=== PATIENT | male | born 1940 | race Caucasian/White ===

== ENCOUNTER 2016-12-31 16:13 | Inpatient (IN) | payer OTHER ==
[~2016-12-31] VITALS: Ht 170.2 cm; Wt 88.9 kg
--- NOTE | 2016-12-31 16:42 | EMERGENCY ROOM VISIT NOTE ---
History Report prepared by Shai: Vince Kahn Under the Supervision of: Dr. Flo Avila M.D. First contact with patient: 16:30 Chief Complaint: SHORTNESS OF BREATH Stated Complaint: SOB, DSYPNEA, COUGH, FATIGUE History of Present Illness The patient is a 76 year old male who presents to the Emergency Room with complaints of shortness of breath that began 6 months ago, but worsened today. He has a past medical history of CHF. His pulse ox was 84% on room air. He is not normally on oxygen and does not have any oxygen at home. He notes that his shortness of breath worsens with exertion. He denies any pain anywhere at this time. He is having some mild bilateral leg edema. His family member states that last week he was taken off of Hydrochlorothiazide and switched onto Metoprolol and Lasix. He also has been following up with Dr. Briggs of Cardiology with future appointments to receive a cardiac stress test. Source of History: patient Onset: 6 months ago Position: other (Respiratory System) Symptom Intensity: 84% on room air Quality: other (Shortness of breath) Timing: worsening Modifying Factors (Worsening): exertion Associated Symptoms: No headache, No neck pain, No chest pain, No abdominal pain, No back pain Note: He is experiencing bilateral lower leg edema. He denies any other abnormal symptoms. Review of Systems All systems have been listed, reviewed, and are negative other than those previously mentioned. Please see Additional Medical History Sheet. Past Medical & Surgical Medical Problems: (1) Carotid stenosis, asymptomatic (2) CHF (congestive heart failure) (3) DM type 2 (diabetes mellitus, type 2) (4) History of myocardial infarction (5) HTN (hypertension) (6) LBBB (left bundle branch block) (7) Peripheral vascular disease Surgical Problems: (1) H/O colonoscopy with polypectomy Family History Omitted secondary to the patient's age. Social History Smoking Status: Former Smoker Smokeless Tobacco Use: No Drug Use: none Occupation Status: retired Current/Historical Medications Scheduled Amlodipine (Norvasc), 2.5 MG PO DAILY Aspirin (Aspirin Ec), 81 MG PO HS Furosemide (Lasix), 20 MG PO DAILY Metoprolol Succinate (Toprol Xl), 25 MG PO DAILY Omeprazole (Prilosec), 20 MG PO QAM Sildenafil Citrate (Viagra), 25 MG PO PRN Sucralfate (Carafate), 1 GM PO ACHS Scheduled PRN Ipratropium-Albuterol (Combivent Respimat), 1 PUFFS INH QID PRN for Wheezing Allergies Coded Allergies: Lisinopril (Unverified Adverse Reaction, Intermediate, HIGH POTASSIUM LEVELS, 12/31/16) Atorvastatin (Verified Adverse Reaction, Unknown, muscle weakness in legs , 12/31/16) Physical Exam Vital Signs Date Time Temp Pulse Resp B/P (MAP) Pulse Ox O2 Delivery O2 Flow Rate FiO2 12/31/16 18:11 86 24 130/69 94 Mask 4.0 12/31/16 16:50 98 Mask 4.0 12/31/16 16:47 78 12/31/16 16:44 98 Mask 4.0 12/31/16 16:44 98 Mask 4.0 12/31/16 16:24 36.3 84 20 146/79 81 Room Air Physical Exam GENERAL: Patient awake, alert, oriented x 3. Patient follows commands. Patient does not appear toxic. Patient is adequately hydrated and well- nourished. SKIN: No erythema, pallor, cyanosis or rash HEENT: Normal head, pupils equal, reactive to light and accommodation. Oral cavity and posterior pharynx appear normal. Neck: Without adenopathy, no neck vein distention. LUNGS: Wheezing to all chapman. Decreased air movement in all chapman. HEART: No murmurs. No gallops. No rubs ABDOMEN: Soft and nontender. EXTREMITIES: No signs of trauma. 1+ pitting edema bilaterally. No calf or thigh tenderness. NEUROLOGIC: Cranial nerves II-XII within normal limits. No gross motor sensory function deficits. Medical Decision & Procedures ER Provider Diagnostic Interpretation: Radiology results as stated below per my review and radiologist interpretation: CHEST 2 VIEWS ROUTINE HISTORY: Short of breath. Congestive heart failure. COMPARISON: None. FINDINGS: Cardiac silhouette is borderline enlarged. Diffuse interstitial and vascular thickening consistent with pulmonary edema. Small bilateral pleural effusions. Bibasilar densities likely represent atelectasis from the small pleural effusions. IMPRESSION: Mild to moderate pulmonary edema and small bilateral pleural effusions. Electronically signed by: Akash Morocho M.D. 12/31/2016 5:16 PM Dictated Date/Time: 12/31/2016 5:14 PM Laboratory Results 12/31/16 16:37 Red Blood Count 5.34, Mean Corpuscular Volume 97.8, Mean Corpuscular Hemoglobin 32.8, Mean Corpuscular Hemoglobin Concent 33.5, Mean Platelet Volume 11.7, Neutrophils (%) (Auto) 59.5, Lymphocytes (%) (Auto) 30.3, Monocytes (%) (Auto) 8.0, Eosinophils (%) (Auto) 1.6, Basophils (%) (Auto) 0.4, Neutrophils # (Auto) 3.05, Lymphocytes # (Auto) 1.55, Monocytes # (Auto) 0.41, Eosinophils # (Auto) 0.08, Basophils # (Auto) 0.02 12/31/16 16:37 Test 12/31/16 16:37 White Blood Count 5.12 K/uL (4.8-10.8) Red Blood Count 5.34 M/uL (4.7-6.1) Hemoglobin 17.5 g/dL (14.0-18.0) Hematocrit 52.2 % (42-52) Mean Corpuscular Volume 97.8 fL (80-100) Mean Corpuscular Hemoglobin 32.8 pg (25-34) Mean Corpuscular Hemoglobin Concent 33.5 g/dl (32-36) Platelet Count 149 K/uL (130-400) Mean Platelet Volume 11.7 fL (7.4-10.4) Neutrophils (%) (Auto) 59.5 % Lymphocytes (%) (Auto) 30.3 % Monocytes (%) (Auto) 8.0 % Eosinophils (%) (Auto) 1.6 % Basophils (%) (Auto) 0.4 % Neutrophils # (Auto) 3.05 K/uL (1.4-6.5) Lymphocytes # (Auto) 1.55 K/uL (1.2-3.4) Monocytes # (Auto) 0.41 K/uL (0.11-0.59) Eosinophils # (Auto) 0.08 K/uL (0-0.5) Basophils # (Auto) 0.02 K/uL (0-0.2) RDW Standard Deviation 51.2 fL (36.4-46.3) RDW Coefficient of Variation 14.3 % (11.5-14.5) Immature Granulocyte % (Auto) 0.2 % Immature Granulocyte # (Auto) 0.01 K/uL (0.00-0.02) Prothrombin Time 11.7 SECONDS (9.0-12.0) Prothromb Time International Ratio 1.1 (0.9-1.1) Activated Partial Thromboplast Time 28.4 SECONDS (21.0-31.0) Partial Thromboplastin Ratio 1.1 Anion Gap 4.0 mmol/L (3-11) Est Creatinine Clear Calc Drug Dose 66.4 ml/min Estimated GFR () 78.0 Estimated GFR (Non- 67.3 BUN/Creatinine Ratio 16.9 (10-20) Calcium Level 8.5 mg/dl (8.5-10.1) Total Bilirubin 0.6 mg/dl (0.2-1) Aspartate Amino Transf (AST/SGOT) 17 U/L (15-37) Alanine Aminotransferase (ALT/SGPT) 40 U/L (12-78) Alkaline Phosphatase 116 U/L (45-117) Pro-B-Type Natriuretic Peptide 4060 pg/ml (0-900) Total Protein 6.7 gm/dl (6.4-8.2) Albumin 3.3 gm/dl (3.4-5.0) Globulin 3.4 gm/dl (2.5-4.0) Albumin/Globulin Ratio 1.0 (0.9-2) Laboratory results as stated above per my review. Medications Administered Medications (Trade) Dose Ordered Sig/Shakira Route Start Time Stop Time Status Last Admin Dose Admin Furosemide (Lasix Inj) 40 mg NOW STAT IV 12/31/16 17:50 12/31/16 17:51 DC 12/31/16 18:12 40 MG ECG Indication: SOB/dyspnea Rate (beats per minute): 76 Rhythm: sinus rhythm Findings: LBBB, PAC, no acute ischemic change ED Course 1630: Past medical records reviewed. The patient was evaluated in room C2. A complete history and physical examination was performed. 1750: Ordered Lasix Inj 40 mg IV 1805: Upon reevaluation, the patient is resting. I discussed today's findings with him. He verbalized agreement of the treatment plan. I spoke with Dr. Link of the [facility] to evaluate the patient for further management. Medical Decision I considered multiple diagnoses including: COPD, pneumonia, bronchitis, and congestive heart failure. Multiple labs, EKG and imaging were obtained. Please see above. Chest x-ray reveals congestive heart failure bordering on pulmonary edema with pleural effusions. BNP is greater than 4000. The patient was given IV Lasix which did result in him urinating here in the ED. I do not believe the patient is ready to return home. I discussed care with the patient, family members and the hospitalist. Medication Reconcilliation Current Medication List: was personally reviewed by me Blood Pressure Screening Patient's blood pressure: Normal blood pressure Blood pressure disposition: Did not require urgent referral Consults Time Called: 1800 Consulting Physician: Dr. Nikolay Azevedo Hospitalist Returned Call: [phone] Discussed the patient's case with her. The patient will be evaluated for further management. Impression Primary Impression: CHF (congestive heart failure) Additional Impression: Elevated troponin Scribe Attestation The scribe's documentation has been prepared under my direction and personally reviewed by me in its entirety. I confirm that the note above accurately reflects all work, treatment, procedures, and medical decision making performed by me. Departure Information Dispostion Being Evaluated By Hospitalist Referrals Neftali Jamil M.D.(HUGH) (PCP) Patient Instructions My [facility] Problem Qualifiers
--- NOTE | 2016-12-31 17:17 | DIAGNOSTIC IMAGING REPORT ---
CHEST 2 VIEWS ROUTINE HISTORY: Short of breath. Congestive heart failure. COMPARISON: None. FINDINGS: Cardiac silhouette is borderline enlarged. Diffuse interstitial and vascular thickening consistent with pulmonary edema. Small bilateral pleural effusions. Bibasilar densities likely represent atelectasis from the small pleural effusions. IMPRESSION: Mild to moderate pulmonary edema and small bilateral pleural effusions. Electronically signed by: Akash Morocho M.D. 12/31/2016 5:16 PM Dictated Date/Time: 12/31/2016 5:14 PM
[2016-12-31 17:27] LABS: BASO % 0.4 %; BASO ABS # 0.02 K/uL (0-0.2); COMPLETE YES; EOS % 1.6 %; HEMATOCRIT 52.2 % (42-52); IG% 0.2 %; LYMPH % 30.3 %; LYMPH ABS # 1.55 K/uL (1.2-3.4); MEAN CELL VOLUME 97.8 fL (80-100); MEAN CORPUSCULAR HEMOGLOBIN 32.8 pg (25-34); MEAN CORPUSCULAR HGB CONC 33.5 g/dl (32-36); MEAN PLATELET VOLUME 11.7 fL (7.4-10.4); NEUT % 59.5 %; PLATELET COUNT 149 K/uL (130-400); RED BLOOD COUNT 5.34 M/uL (4.7-6.1); WHITE BLOOD COUNT 5.12 K/uL (4.8-10.8)
[2016-12-31 17:29] LABS: INR 1.1 (0.9-1.1); PARTIAL THROMBOPLASTIN RATIO 1.1; PROTHROMBIN TIME (PATIENT) 11.7 SECONDS (9.0-12.0)
[2016-12-31 17:34] LABS: BUN/CREATININE RATIO 16.9 (10-20); CALCIUM 8.5 mg/dl (8.5-10.1); CREATININE 1.08 mg/dl (0.60-1.40); POTASSIUM 3.6 mmol/L (3.5-5.1)
[2016-12-31] MEDS ORDERED: SUCR5SUS PO (17:43)
[2016-12-31] MEDS ORDERED: AMLO2.5T PO (17:43)
[2016-12-31] MEDS ORDERED: ASPI81TA28 PO (17:43)
[2016-12-31] MEDS ORDERED: PRLSR20 PO (17:43)
[2016-12-31] MEDS ORDERED: FURO-85 PO (17:43)
[2016-12-31] MEDS ORDERED: SILD1TAB11 PO (17:43)
[2016-12-31] MEDS ORDERED: VNTHFA/IN INH (17:43)
[2016-12-31] MEDS ORDERED: METO25TA3 PO (17:43)
[2016-12-31] MEDS ORDERED: FUROSEMIDE 40 MG/4 ML VIAL IV STA (17:50)
[2016-12-31 19:26] VITALS: O2SAT 95; Ht 170.2 cm; Wt 88.9 kg
[2016-12-31] MEDS ORDERED: ONDANSETRON INJ 2 MG/ML 2 ML VIAL IV PRN (20:00)
[2016-12-31] MEDS ORDERED: POLYETHYLENE (MIRALAX) 17 GM PACK PO PRN (20:00)
[2016-12-31] MEDS ORDERED: MoRPHine SULFATE 2 MG/ML CARP IV PRN (20:00)
[2016-12-31] MEDS ORDERED: NITROGLYCERIN 0.4 MG SL PER TAB CHARGE SL PRN (20:00)
[2016-12-31] MEDS ORDERED: ACETAMINOPHEN 325 MG TAB PO PRN (20:00)
[2016-12-31] MEDS ORDERED: IPRA1AER2 INH (20:06)
[2016-12-31] MEDS ORDERED: ASPIRIN 81 MG CHEW PO STA (20:08)
[2016-12-31] MEDS ORDERED: IPRATROPIUM BROMIDE/ALBUTEROL respimat INH INH PRN (20:15)
[2016-12-31 20:25] VITALS: BP 137/66; PULSE 90; TEMP 36.7; O2SAT 92
[2016-12-31] MEDS ORDERED: POTASSIUM CHLORIDE 20 MEQ TABCR PO ONE (20:30)
[2016-12-31] MEDS: SUCRALFATE 1 GM/10 ML UDC PO SCH (20:42)
--- NOTE | 2016-12-31 21:26 | History and Physical ---
History & Physical Date & Time of Service: Dec 31, 2016 at 20:09 Chief Complaint: CHF Primary Care Physician: Neftali Jamil M.D.(KAILEE) History of Present Illness Source: patient, family (niece at bedside) This is a 76 y/o male with history of silent CT in , LBBB, chronic systolic and diastolic CHF, dyslipidemia, DM type 2, and other problems listed below who presents to the ED with SOB. Onset of SOB was 6 months ago, then worsened over past 1 month and further worsened today. Previously was dyspneic on exertion only, but today was dyspneic at rest. Per his great niece, his O2 sat at home was in low 80's on home pulse oximeter. He does not use home O2. Dr. Briggs's office was called and patient was taken to ER, where he was also hypoxic to 81% on RA which improved to mid 90's on 4-5 liters via mask. Currently SOB is resolved. He reports associated nonproductive cough x 6 months. He reports burning pain across his chest, non-radiating, during episodes of SOB. No CP currently. He reports bilateral LE edema over past few days. Reports weight gain of 10 lb over past 2 months. He was having reflux and epigastric pain which improved with addition of omeprazole and Carafate. He denies fever, chills, diaphoresis, rhinorrhea, sore throat, orthopnea, increased abdominal girth, abdominal pain, N/V/D, dysuria, frequency, urgency. Pt was recently seen by Dr. Briggs on 12/25/2016 for acute systolic CHF, at which time HCTZ was discontinued, and patient was started on metoprolol succinate 25 mg daily and furosemide 20 mg daily. Pt is scheduled for outpatient stress test January 08. Patient stopped taking atorvastatin 3 weeks ago due to bilateral foot pain and muscle weakness. Last echo 12/04/2016- LBBB conduction pattern with ventricular ectopics was noted during imaging. There is an extensive area of hypokinesis to akinesis involving the entire inferior wall, entire posterior wall, and inferior apex. Calculated LV ejection Fraction = 45% (biplane method of discs). The left ventricular cavity size is moderately enlarged. Thinning of the inferior posterior wall. The left ventricular diastolic function is moderately abnormal ( grade II).The left atrium is mildly enlarged (3541ml/m^2). Past Medical/Surgical History Medical Problems: (1) Carotid stenosis, asymptomatic Status: Chronic (2) CHF (congestive heart failure) Permanent Comment: echo 12/04/2016- EF 45%, grade II diastolic dysfunction Status: Chronic (3) DM type 2 (diabetes mellitus, type 2) Status: Chronic (4) History of myocardial infarction Permanent Comment: silent CT in Status: Chronic (5) HTN (hypertension) Status: Chronic (6) LBBB (left bundle branch block) Status: Chronic (7) Peripheral vascular disease Status: Chronic Surgical Problems: (1) H/O colonoscopy with polypectomy Status: Chronic Family History FH: CAD (coronary artery disease) FATHER ( of CT early ) Social History Smoking Status: Former Smoker Smokeless Tobacco Use: No Alcohol Use: none Occupational Status: retired Multi-Drug Resistant Organisms History of MDRO: No Allergies Coded Allergies: Lisinopril (Unverified Adverse Reaction, Intermediate, HIGH POTASSIUM LEVELS, 12/31/16) Atorvastatin (Verified Adverse Reaction, Unknown, muscle weakness in legs , 12/31/16) Home Medications Scheduled Amlodipine (Norvasc), 2.5 MG PO DAILY Aspirin (Aspirin Ec), 81 MG PO HS Furosemide (Lasix), 20 MG PO DAILY Metoprolol Succinate (Toprol Xl), 25 MG PO DAILY Omeprazole (Prilosec), 20 MG PO QAM Sildenafil Citrate (Viagra), 25 MG PO PRN Sucralfate (Carafate), 1 GM PO ACHS Scheduled PRN Ipratropium-Albuterol (Combivent Respimat), 1 PUFFS INH QID PRN for Wheezing Review of Systems Ten systems reviewed and negative except as noted in HPI. Physical Exam Vital Signs Date Time Temp Pulse Resp B/P (MAP) Pulse Ox O2 Delivery O2 Flow Rate FiO2 12/31/16 19:26 95 Mask 5.0 12/31/16 19:08 74 18 124/74 95 Mask 4.0 12/31/16 18:11 86 24 130/69 94 Mask 4.0 12/31/16 16:50 98 Mask 4.0 12/31/16 16:47 78 12/31/16 16:44 98 Mask 4.0 12/31/16 16:44 98 Mask 4.0 12/31/16 16:24 36.3 84 20 146/79 81 Room Air General Appearance: WD/WN, no apparent distress, + pertinent finding (pleasant alert 76 year old male, sitting in bedside chair, no distress, family at bedside ) Head: normocephalic, atraumatic Eyes: normal inspection, sclerae normal ENT: hearing grossly normal, + pertinent finding (mask in place) Neck: supple, trachea midline Respiratory/Chest: normal breath sounds, no respiratory distress, no accessory muscle use, + pertinent finding (crackles bilateral bases) Cardiovascular: regular rate, rhythm, no murmur Abdomen/GI: normal bowel sounds, non tender, soft Extremities/Musculoskelatal: no calf tenderness, + pertinent finding (2+ pitting pretibial edema bilaterally ) Neurologic/Psych: alert, normal mood/affect, oriented x 3 Skin: normal color, warm/dry Diagnostics Laboratory Results Results Past 24 Hours Test 12/31/16 16:37 Range/Units White Blood Count 5.12 4.8-10.8 K/uL Red Blood Count 5.34 4.7-6.1 M/uL Hemoglobin 17.5 14.0-18.0 g/dL Hematocrit 52.2 42-52 % Mean Corpuscular Volume 97.8 80-100 fL Mean Corpuscular Hemoglobin 32.8 25-34 pg Mean Corpuscular Hemoglobin Concent 33.5 32-36 g/dl Platelet Count 149 130-400 K/uL Mean Platelet Volume 11.7 7.4-10.4 fL Neutrophils (%) (Auto) 59.5 % Lymphocytes (%) (Auto) 30.3 % Monocytes (%) (Auto) 8.0 % Eosinophils (%) (Auto) 1.6 % Basophils (%) (Auto) 0.4 % Neutrophils # (Auto) 3.05 1.4-6.5 K/uL Lymphocytes # (Auto) 1.55 1.2-3.4 K/uL Monocytes # (Auto) 0.41 0.11-0.59 K/uL Eosinophils # (Auto) 0.08 0-0.5 K/uL Basophils # (Auto) 0.02 0-0.2 K/uL RDW Standard Deviation 51.2 36.4-46.3 fL RDW Coefficient of Variation 14.3 11.5-14.5 % Immature Granulocyte % (Auto) 0.2 % Immature Granulocyte # (Auto) 0.01 0.00-0.02 K/uL Prothrombin Time 11.7 9.0-12.0 SECONDS Prothromb Time International Ratio 1.1 0.9-1.1 Activated Partial Thromboplast Time 28.4 21.0-31.0 SECONDS Partial Thromboplastin Ratio 1.1 Sodium Level 139 136-145 mmol/L Potassium Level 3.6 3.5-5.1 mmol/L Chloride Level 102 98-107 mmol/L Carbon Dioxide Level 33 21-32 mmol/L Anion Gap 4.0 3-11 mmol/L Blood Urea Nitrogen 18 7-18 mg/dl Creatinine 1.08 0.60-1.40 mg/dl Est Creatinine Clear Calc Drug Dose 66.4 ml/min Estimated GFR () 78.0 Estimated GFR (Non- 67.3 BUN/Creatinine Ratio 16.9 10-20 Random Glucose 115 70-99 mg/dl Calcium Level 8.5 8.5-10.1 mg/dl Total Bilirubin 0.6 0.2-1 mg/dl Aspartate Amino Transf (AST/SGOT) 17 15-37 U/L Alanine Aminotransferase (ALT/SGPT) 40 12-78 U/L Alkaline Phosphatase 116 45-117 U/L Troponin I 0.049 0-0.045 ng/ml Pro-B-Type Natriuretic Peptide 4060 0-900 pg/ml Total Protein 6.7 6.4-8.2 gm/dl Albumin 3.3 3.4-5.0 gm/dl Globulin 3.4 2.5-4.0 gm/dl Albumin/Globulin Ratio 1.0 0.9-2 Diagnostic Radiology CHEST 2 VIEWS ROUTINE HISTORY: Short of breath. Congestive heart failure. COMPARISON: None. FINDINGS: Cardiac silhouette is borderline enlarged. Diffuse interstitial and vascular thickening consistent with pulmonary edema. Small bilateral pleural effusions. Bibasilar densities likely represent atelectasis from the small pleural effusions. IMPRESSION: Mild to moderate pulmonary edema and small bilateral pleural effusions. EKG Sinus rhythm with premature atrial complexes, 76 bpm, left bundle branch block ( chronic), as confirmed by cardiology, also interpreted by me. Impression Assessment and Plan ACUTE SYSTOLIC CHF, EF 45%, with ACUTE HYPOXIA Was hypoxic to 81% on RA in ER ->improved to mid 90's on 4-5 liters via mask CXR shows pulmonary edema with small bilateral pleural effusions Pro-BNP elevated to approx 4K Troponin mildly elevated to 0.049 ->trend serial cardiac enzymes Received IV Lasix 40 mg in ER, diuresed approx 1 liter in response Continue IV diuresis with Lasix 40 mg BID Continue beta jeffry; ABBEY inhibitor intolerance noted (adverse reaction of hyperkalemia with lisinopril) Sodium restriction Monitor daily standing weight, intake/ output Continue supplemental O2 per protocol Consult cardiology- Dr. Briggs is aware HISTORY OF CT Pt reports silent CT in Rule out ACS as cause of acute CHF Initial troponin mildly elevated at 0.049; EKG shows chronic LBBB Currently chest pain free Trend serial cardiac enzymes Nitro PRN chest pain Aspirin 324 mg given; continue aspirin 81 mg daily and beta jeffry; statin intolerance noted Scheduled for outpatient stress test January 08 HYPERTENSION Continue amlodipine and metoprolol succinate DM TYPE 2 Diet controlled, recent A1c 6.7 on 11/28/2016 Random glucose 115 in ER Monitor BSG AC HS DYSLIPIDEMIA Atorvastatin stopped by patient due to adverse reaction- bilateral foot pain/ muscle weakness GERD Continue PPI DVT PROPHYLAXIS Lovenox SQ CODE STATUS Full code per my discussion with patient and family DISPOSITION Admission telemetry Follows with Dr. Jamil for primary care OF NOTE: Patient's great niece Alisson ([phone]) requests to be updated tomorrow. Patient seen in collaboration with Dr. Link. Please see her addendum. ADDENDUM: I have seen and examined the patient and agree with the assessment and plan as above. Pt states that his chest pain is only with severe SOB with exertion. He has had a 1L output since Lasix 40 IV given in ER and already reports feeling it is easier to breathe. Redose in am and cardiology consult placed to continue outpatient workup. DO Nikolay Level of Care Telemetry Advanced Directives Existing Living Will: No Existing Power of Museum Exhibit Technician: No Resuscitation Status FULL RESUSCITATION VTE Prophylaxis VTE Risk Assessment Done? Y/N: Yes Risk Level: Moderate Given or contraindicated: Enoxaparin (Lovenox)SQ
[2016-12-31 23:12] LABS: CKMB/CK RATIO 3.7 (0-3.0)
[2016-12-31 23:46] VITALS: BP 111/57; PULSE 78; TEMP 36.3; O2SAT 90
[2017-01-01] VITALS (8 sets, daily range): BP systolic 102–116; BP diastolic 62–67; PULSE 55–75; TEMP 36.4–36.8; O2SAT 90–98
[2017-01-01 04:52] LABS: HEMATOCRIT 45.4 % (42-52); MEAN CELL VOLUME 97.6 fL (80-100); MEAN CORPUSCULAR HEMOGLOBIN 32.3 pg (25-34); PLATELET COUNT 131 K/uL (130-400); RED BLOOD COUNT 4.65 M/uL (4.7-6.1)
[2017-01-01 05:16] LABS: BUN/CREATININE RATIO 18.4 (10-20); CALCIUM 8.2 mg/dl (8.5-10.1); CREATININE 0.96 mg/dl (0.60-1.40); POTASSIUM 3.7 mmol/L (3.5-5.1)
[2017-01-01 05:21] LABS: CKMB/CK RATIO 3.8 (0-3.0)
--- NOTE | 2017-01-01 06:23 | Clinical Documentation Query ---
CLINICAL DOCUMENTATION QUERY 76 year old male who presents to the Emergency Room with complaints of shortness of breath In your clinical opinion is this patient being managed for: ( ) Demand Ischemia in setting of hypoxia and Acute systolic CHF ( ) NSTEMI/Type II CO in setting of hypoxia and Acute systolic CHF ( ) Not Agree ( ) Other explanation of clinical findings (Please Explain) ( ) Unable to determine (Please Define) ( ) Need to Discuss The medical record reflects the following clinical findings, treatment, and risk factors. Clinical Indicators: SOB, hypoxia of 81% on RA, +Troponin's 0.049, 0.058, 0.050, Treatment: Cardiology consult, O2, IV Lasix, SQ Lovenox, ASA, Metoprolol, Risk Factors: Age, Hx of silent CO, diabetes. Please clarify and document your clinical opinion in the progress notes and discharge summary. Terms such as "probable", "suspected", "likely", "questionable", "possible", or "still to be ruled out" are acceptable. IF IN AGREEMENT, YOU MUST DOCUMENT ABOVE DIAGNOSTIC STATEMENT IN DAILY PROGRESS NOTES AND DISCHARGE SUMMARY. This document is not part of the patient's record. Thank You, Terrance Vela, RN [phone]
[2017-01-01] MEDS: SUCRALFATE 1 GM/10 ML UDC PO SCH ×4 (06:34→20:07)
[2017-01-01] MEDS: FUROSEMIDE INJ 40 MG in SYRINGE 0 ML IV SCH ×2 (07:59→17:03)
[2017-01-01] MEDS: PANTOprazole SOD 40 MG TAB PO SCH (07:59)
[2017-01-01] MEDS: ASPIRIN 81 MG ECTAB PO SCH (07:59)
[2017-01-01] MEDS: METOPROLOL SUCC 25MG EXT REL TAB PO SCH (08:00)
[2017-01-01] MEDS: ENOXAPARIN 40 MG/0.4 ML SYR SC SCH (08:00)
[2017-01-01] MEDS ORDERED: AMLODIPINE BESYLATE 5 MG TAB PO SCH (09:00)
--- NOTE | 2017-01-01 09:25 | Cardiology Consultation ---
Cardiology Consultation Date of Service Jan 01, 2017. (Danya Vu, NATANAEL) Cardiology Consultation Attending Supervisor Money Room: Dr. Briggs Requesting Provider: Dr. Link HPI: Brent Marie is a 76 year old male who was recently evaluated as an outpatient for cardiology consultation by Dr. Briggs. History includes remote history of [place] in the . He was previously evaluated in the cardiology office in 2011. He underwent exercise stress echo at that time, demonstrating rate related LBBB, with LVEF 45-49% with evidence of old RCA territory scar. Patient was asymptomatic at the time and medical management was recommended for presumed CAD/mild LV dysfunction. Other history includes carotid stenosis with 50-69% stenosis in the right and < 50% stenosis in the left internal carotid, hypertension, dyslipidemia, DM type II. Several weeks ago, patient had an outpatient echo which revealed LV dysfunction with EF 45% and chronic LBBB. He was started on low dose EBBB Metoprolol succinate 25 mg daily. Due to ongoing dyspnea on exertion and elevated BNP, he was started on low dose furosemide 20 mg daily and HCTZ was discontinued. Nuclear Lexiscan was also scheduled for further evaluation of ischemia vs scar, not yet completed. Patient reports worsening dyspnea on exertion and then dyspnea at rest over the last week. Symptoms acutely worsened yesterday AM. 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 He also reported worsening LE edema, and 10 lb weight gain over the last week. H was subsequently brought to ER for evaluation. Upon arrival he was treated with IV furosemide. BNP was elevated at 4,000 consistent with acute CHF exacerbation. Chest xray demonstrated b/l pleural effusions. troponin minimally elevated consistent with CHF, not ACS. At time of consult this AM, patient sitting in chair, reading newspaper, no longer on mask or supplemental O2. SOB improving, but not yet at baseline, per patient. No chest pain. Did not sleep well, but due to "interruptions". No specific orthopnea noted. He notes ongoing cough with clear sputum production. No fever or chills. Notes ongoing LE edema, unchanged from yesterday. Review of Systems: A Complete Review of 10 Systems is as stated above or negative. Past Medical History: Peripheral vascular disease Benign neoplasm of colon Type 2 diabetes mellitus with hemoglobin A1c goal of less than 7.0% DYSLIPIDEMIA, GOAL LDL BELOW 100 Carotid stenosis, non-symptomatic HTN, goal below 140/90 LBBB Presumed ischemic cardiomyopathy Past Surgical History: Multiple colonoscopies Family History: Father with CAD, [place] and dec age 60's Social History: Prior tobacco abuse, quitting in 2011. Rare alcohol. Allergies: Lisinopril, Atorvastatin *Lisinopril allergy discussed with patient - per his recollection, caused increased potassium levels. Reported Home Medications Medications Dose Route/Sig Max Daily Dose Days Date Category Combivent Respimat (Ipratropium-Albuterol) 1 Aer Aer 1 Puffs INH QID PRN 12/31/16 Reported Viagra (Sildenafil Citrate) 25 Mg Tab 25 Mg PO PRN 12/31/16 Reported Norvasc (Amlodipine Besylate) 2.5 Mg Tab 2.5 Mg PO DAILY 12/31/16 Reported Carafate (Sucralfate) 1 Gm/10 Ml Susp 1 Gm PO ACHS 12/31/16 Reported Prilosec (Omeprazole) 20 Mg Capcr 20 Mg PO QAM 12/31/16 Reported Aspirin Ec (Aspirin) 81 Mg Tab 81 Mg PO HS 12/31/16 Reported Toprol Xl (Metoprolol Succinate) 25 Mg Tabcr 25 Mg PO DAILY 12/31/16 Reported Lasix (Furosemide) 20 Mg Tab 20 Mg PO DAILY 12/31/16 Reported OBJECTIVE/PHYSICAL EXAMINATION: Last 8 Hrs Date Time Temp Pulse Resp B/P (MAP) Pulse Ox O2 Delivery O2 Flow Rate FiO2 01/01/17 08:00 92 Room Air 01/01/17 07:29 36.6 75 20 116/67 (83) 92 Oxymask 4.0 01/01/17 04:10 92 Oxymask 4.0 01/01/17 03:25 36.4 73 18 105/63 (77) 92 Mask 4.0 General: no acute distress and stated age Eyes: conjunctiva are pink and non-injected, sclera clear Neck: normal jugular venous pulse, no hepatojugular reflux Chest: normal shape and normal respiratory effort Lungs: Decreased breath sounds b/l. Cardiac Exam: regular heart sounds, no murmurs, rubs, or gallops Abdomen: abdomen soft, non-tender, no abnormal masses and no hepatosplenomegaly Musculoskeletal: no gait disturbance, no weakness Extremities: 1+ pretibial edema Neuro: grossly normal exam Psych: appropriate affect and insight. Data on admission: EKG on admission: NSR with frequent PAC's, LBBB Repeat EKG this AM: NSR with PVC, LBBB Chest xray on admission: Mild to moderate pulmonary edema and small bilateral pleural effusions. Telemetry reviewed: NSR with rare PVC and PAC. No sustained arrhythmias. LBBB noted. Labs - Last 24 Hours Test 12/31/16 16:37 12/31/16 22:30 01/01/17 04:23 01/01/17 06:24 White Blood Count 5.12 K/uL 5.00 K/uL Red Blood Count 5.34 M/uL 4.65 M/uL Hemoglobin 17.5 g/dL 15.0 g/dL Hematocrit 52.2 % 45.4 % Mean Corpuscular Volume 97.8 fL 97.6 fL Mean Corpuscular Hemoglobin 32.8 pg 32.3 pg Mean Corpuscular Hemoglobin Concent 33.5 g/dl 33.0 g/dl Platelet Count 149 K/uL 131 K/uL Mean Platelet Volume 11.7 fL 11.0 fL Neutrophils (%) (Auto) 59.5 % Lymphocytes (%) (Auto) 30.3 % Monocytes (%) (Auto) 8.0 % Eosinophils (%) (Auto) 1.6 % Basophils (%) (Auto) 0.4 % Neutrophils # (Auto) 3.05 K/uL Lymphocytes # (Auto) 1.55 K/uL Monocytes # (Auto) 0.41 K/uL Eosinophils # (Auto) 0.08 K/uL Basophils # (Auto) 0.02 K/uL RDW Standard Deviation 51.2 fL 51.3 fL RDW Coefficient of Variation 14.3 % 14.4 % Immature Granulocyte % (Auto) 0.2 % Immature Granulocyte # (Auto) 0.01 K/uL Prothrombin Time 11.7 SECONDS Prothromb Time International Ratio 1.1 Activated Partial Thromboplast Time 28.4 SECONDS Partial Thromboplastin Ratio 1.1 Sodium Level 139 mmol/L 143 mmol/L Potassium Level 3.6 mmol/L 3.7 mmol/L Chloride Level 102 mmol/L 105 mmol/L Carbon Dioxide Level 33 mmol/L 34 mmol/L Anion Gap 4.0 mmol/L 4.0 mmol/L Blood Urea Nitrogen 18 mg/dl 18 mg/dl Creatinine 1.08 mg/dl 0.96 mg/dl Est Creatinine Clear Calc Drug Dose 66.4 ml/min 74.7 ml/min Estimated GFR () 78.0 89.9 Estimated GFR (Non- 67.3 77.6 BUN/Creatinine Ratio 16.9 18.4 Random Glucose 115 mg/dl 116 mg/dl Calcium Level 8.5 mg/dl 8.2 mg/dl Total Bilirubin 0.6 mg/dl Aspartate Amino Transf (AST/SGOT) 17 U/L Alanine Aminotransferase (ALT/SGPT) 40 U/L Alkaline Phosphatase 116 U/L Troponin I 0.049 ng/ml 0.058 ng/ml 0.050 ng/ml Pro-B-Type Natriuretic Peptide 4060 pg/ml Total Protein 6.7 gm/dl Albumin 3.3 gm/dl Globulin 3.4 gm/dl Albumin/Globulin Ratio 1.0 Total Creatine Kinase 46 U/L 37 U/L Creatine Kinase MB 1.7 ng/ml 1.4 ng/ml Creatine Kinase MB Ratio 3.7 3.8 Bedside Glucose 96 mg/dl Prior Data: Summary of transthoracic echocardiogram performed 12/04/2016: LBBB conduction pattern with ventricular ectopics was noted during imaging. There is an extensive area of hypokinesis to akinesis involving the entire inferior wall, entire posterior wall, and inferior apex. Calculated LV ejection Fraction = 45% (biplane method of discs). The left ventricular cavity size is moderately enlarged. Thinning of the inferior posterior wall. The left ventricular diastolic function is moderately abnormal (grade II). The left atrium is mildly enlarged (3541 ml/m^2). IMPRESSION: 76 year old male 1. Acute on chronic systolic heart failure exacerbation 2. Presumed ischemic cardiomyopathy with LVEF 45% per last echo in 11/2016 3. 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 Med management at that time, as patient was asymptomatic. 4. LBBB 5. Hypertension 6. Dyslipidemia. Allergy to atorvastatin noted. RECOMMENDATIONS/PLAN: Symptoms improving with IV diuresis, but continues to appear volume overload based on exam and symptoms. Continue IV furosemide 40 mg BID today. Monitor I+O's. Fluid restriction of 1500 ml Update 2D Echocardiogram. Consider cardiac catheterization vs nuclear Lexiscan (as outpatient) based on echo findings. Continue metoprolol succinate 25 mg daily for cardiomyopathy Recommend trial of losartan in the future due to cardiomyopathy and monitor potassium levels. Will not start right now to prevent acute renal dysfunction while currently receiving IV diuretic therapy. Consider adding Crestor as well for dyslipidemia and underlying CAD. Plan discussed with patient and his niece. Case to be discussed with Dr. Briggs. Will follow. (Danya Vu PA-C) CARDIOLOGY ATTENDING ADDENDUM: The patient was seen and personally examined. Agree with Danya Vu PA-C's findings and plans as documented above with additions as noted below. S: patient with worsening shortness of breath with exertion that has progressed to resting dyspnea and hypoxia. Improved after IV furosemide. BNP is elevated, value higher than when measured as outpatient 1 week ago prior to initiating oral furosemide. Exam: CV: regular rhythm no murmure Ext :1+ edema, new compared to 1 week ago Impression: 1. Acute decompensation, newly diagnosed systolic heart failure 2. Remote "silent" RCA territory infarction, diagnosed years later, medial Rx in interim , no past cardiac cath 3. LVEF ~45% on recent outpt echo, unchanged compared to several years ago 4. New LBBB Plan: Update echo. IV furosemide, and medical rx for CHF, after optimized will proceed with ischemic work up with nuclear stress VS cardiac cath. Reassess LVEF, if LVEF <35% , may be candidate for [employer]. Continue lovenox for DVT prophylaxis. (Dylon Briggs,Adal.O.)
--- NOTE | 2017-01-01 12:40 | Progress Note ---
Medicine Progress Note Date & Time of Visit: Jan 01, 2017 at 12:16. Subjective Pt was seen and examined Sitting in chair with no distress Pt said that his breathing is much better He said that already feels good to go home He said that he has not been coughing up his phlegm denies any chest pain, palpitation and dizziness Objective Last 8 Hrs Date Time Temp Pulse Resp B/P (MAP) Pulse Ox O2 Delivery O2 Flow Rate FiO2 01/01/17 08:00 92 Room Air 01/01/17 07:29 36.6 75 20 116/67 (83) 92 Oxymask 4.0 Physical Exam: General- No acute distress Head- atraumatic Eyes- PERRL, EOMI ENT- oropharynx clear Neck- supple, no JVD Lungs- decrease BS Heart- regular rhythm; no murmur Abdomen- normal bowel sounds, soft Extremities- no calf tenderness Neuro- alert, oriented x 3; PERRL, EOMI Skin- warm & dry Laboratory Results: Last 24 Hours Test 12/31/16 16:37 12/31/16 22:30 01/01/17 04:23 01/01/17 06:24 White Blood Count 5.12 K/uL 5.00 K/uL Red Blood Count 5.34 M/uL 4.65 M/uL Hemoglobin 17.5 g/dL 15.0 g/dL Hematocrit 52.2 % 45.4 % Mean Corpuscular Volume 97.8 fL 97.6 fL Mean Corpuscular Hemoglobin 32.8 pg 32.3 pg Mean Corpuscular Hemoglobin Concent 33.5 g/dl 33.0 g/dl Platelet Count 149 K/uL 131 K/uL Mean Platelet Volume 11.7 fL 11.0 fL Neutrophils (%) (Auto) 59.5 % Lymphocytes (%) (Auto) 30.3 % Monocytes (%) (Auto) 8.0 % Eosinophils (%) (Auto) 1.6 % Basophils (%) (Auto) 0.4 % Neutrophils # (Auto) 3.05 K/uL Lymphocytes # (Auto) 1.55 K/uL Monocytes # (Auto) 0.41 K/uL Eosinophils # (Auto) 0.08 K/uL Basophils # (Auto) 0.02 K/uL RDW Standard Deviation 51.2 fL 51.3 fL RDW Coefficient of Variation 14.3 % 14.4 % Immature Granulocyte % (Auto) 0.2 % Immature Granulocyte # (Auto) 0.01 K/uL Prothrombin Time 11.7 SECONDS Prothromb Time International Ratio 1.1 Activated Partial Thromboplast Time 28.4 SECONDS Partial Thromboplastin Ratio 1.1 Sodium Level 139 mmol/L 143 mmol/L Potassium Level 3.6 mmol/L 3.7 mmol/L Chloride Level 102 mmol/L 105 mmol/L Carbon Dioxide Level 33 mmol/L 34 mmol/L Anion Gap 4.0 mmol/L 4.0 mmol/L Blood Urea Nitrogen 18 mg/dl 18 mg/dl Creatinine 1.08 mg/dl 0.96 mg/dl Est Creatinine Clear Calc Drug Dose 66.4 ml/min 74.7 ml/min Estimated GFR () 78.0 89.9 Estimated GFR (Non- 67.3 77.6 BUN/Creatinine Ratio 16.9 18.4 Random Glucose 115 mg/dl 116 mg/dl Calcium Level 8.5 mg/dl 8.2 mg/dl Total Bilirubin 0.6 mg/dl Aspartate Amino Transf (AST/SGOT) 17 U/L Alanine Aminotransferase (ALT/SGPT) 40 U/L Alkaline Phosphatase 116 U/L Troponin I 0.049 ng/ml 0.058 ng/ml 0.050 ng/ml Pro-B-Type Natriuretic Peptide 4060 pg/ml Total Protein 6.7 gm/dl Albumin 3.3 gm/dl Globulin 3.4 gm/dl Albumin/Globulin Ratio 1.0 Total Creatine Kinase 46 U/L 37 U/L Creatine Kinase MB 1.7 ng/ml 1.4 ng/ml Creatine Kinase MB Ratio 3.7 3.8 Bedside Glucose 96 mg/dl Assessment & Plan ACUTE SYSTOLIC CHF EXACERBATION Present with SOB and Hypoxia CXR on admission showed pulmonary edema with small bilateral pleural effusions Pro-BNP elevated to approx 4K Mild elevated Troponin Received IV Lasix 40 mg in ER Continue IV lasix 40mg BID and metoprolo Monitor I/O Sodium restriction Cardiology on board Echo pending HISTORY OF [place] Elevated troponin due to CHF exacerbation EKG showed no acute ischemic changes Currently chest pain free Continue Asa and metoprolol Elevated troponin Secondary to acute systolic CHF exacerbation Denies any chest pain EKG showed no ischemic changes continue monitor in tele HYPERTENSION BP stable Continue amlodipine and metoprolol succinate DM TYPE 2 Recent A1c 6.7 on 11/28/2016 No on any DM med Continue monitor BS DYSLIPIDEMIA Pt discontinued statin due to side effect of much ache GERD Continue PPI DVT PROPHYLAXIS Lovenox SQ CODE STATUS Full code DISPOSITION Continue monitor in Tele Consultants: Cardiology Current Inpatient Medications: Current Inpatient Medications Medications (Trade) Dose Ordered Sig/Shakira Route Start Time Stop Time Status Last Admin Dose Admin Furosemide 40 mg/ Syringe 4 ml @ 4 mls/min BID17 IV 01/01/17 09:00 01/31/17 08:59 01/01/17 07:59 4 MLS/MIN Enoxaparin Sodium (Lovenox Inj) 40 mg DAILY SC 01/01/17 09:00 01/31/17 08:59 01/01/17 08:00 40 MG Acetaminophen (Tylenol Tab) 650 mg Q4H PRN PO 12/31/16 20:00 01/30/17 19:59 Ondansetron HCl (Zofran Inj) 4 mg Q6H PRN IV 12/31/16 20:00 01/30/17 19:59 Nitroglycerin (Nitrostat Tab) 0.4 mg UD PRN SL 12/31/16 20:00 01/30/17 19:59 Morphine Sulfate (MoRPHine SULFATE INJ) 2 mg Q30M PRN IV 12/31/16 20:00 01/14/17 19:59 Polyethylene (Miralax Powder Packet) 17 gm DAILY PRN PO 12/31/16 20:00 01/30/17 19:59 Amlodipine Besylate (Norvasc Tab) 2.5 mg DAILY PO 01/01/17 09:00 01/31/17 08:59 01/01/17 07:59 2.5 MG Aspirin (Ecotrin Tab) 81 mg QAM PO 01/01/17 09:00 01/31/17 08:59 01/01/17 07:59 81 MG Albuterol/ Ipratropium (Combivent Respimat Inh) 1 puffs QID PRN INH 12/31/16 20:15 01/30/17 20:14 Metoprolol Succinate (Toprol Xl Tab) 25 mg DAILY PO 01/01/17 09:00 01/31/17 08:59 01/01/17 08:00 25 MG Sucralfate (Carafate Susp) 1 gm ACHS PO 12/31/16 21:00 01/30/17 20:59 01/01/17 11:49 1 GM Pantoprazole Sodium (Protonix Tab) 40 mg QAM PO 01/01/17 09:00 01/31/17 08:59 01/01/17 07:59 40 MG
--- NOTE | 2017-01-01 15:41 | ECHOCARDIOGRAM REPORT ---
*NOTICE TO RECEIVING CONSTITUTION PARTY AGENCY This information is strictly Confidential and protected under [place] law. [place] law prohibits you from making any further disclosure of this information unless further disclosure is expressly permitted by the written consent of the person to whom it pertains or is authorized by law. A general authorization for the release of medical or other information is not sufficient for this purpose. Hospital accepts no responsibility if the information is made available to any other person, INCLUDING THE PATIENT. Interpretation Summary * Name: LUIS MIGUEL ANDRE Study Date: 01/01/2017 11:10 AM BP: 116/67 mmHg * Patient Location: C.2T\S\S230\S\1 HR: 70 * : 1940 (M/d/yyyy) Gender: Male Height: 67 in * Age: 76 yrs Ethnicity: [place] Weight: 210 lb * Ordering Physician: Dylon Briggs * Referring Physician: Self, Referred * Performed By: Lelo Ferrsi RCS * * Reason For Study: CHF * BSA: 2.1 m2 * The study was technically difficult. * -- Conclusions -- * Moderate concentric left ventricular hypertrophy is present in segments with relatively normal wall motion. * There is thinning of the inferior and inferolateral ye. * Septal motion is consistent with conduction abnormality. * There is a large sized apical inferior, inferior, and inferolateral wall motion abnormality with hypokinesis to akinesis of the segments. * The qualitative left ventricular ejection fraction =30-34%. * There is moderate mitral regurgitation. * Diastolic dysfunction, Grade II (pseudonormalization pattern). * There is trace tricuspid regurgitation. * Doppler findings do not suggest pulmonary hypertension. Procedure Details * A complete two-dimensional transthoracic echocardiogram was performed (2D, M-mode, Doppler and color flow Doppler). Left Ventricle * The left ventricle is normal in size. * Moderate concentric left ventricular hypertrophy is present in segments with relatively normal wall motion. There is thinninig of the inferior and inferolateral ye. * Left ventricular systolic function is moderately reduced. * The qualitative left ventricular ejection fraction =30-34%. * Septal motion is consistent with conduction abnormality. * There is a large sized apical inferior, inferior, and inferolateral wall motion abnormality with hypokinesis to akinesis of the segments. Right Ventricle * The right ventricle is normal size. * The right ventricular systolic function is normal as assessed by tricuspid annular plane systolic excursion (TAPSE) (normal >1.5 cm). Atria * The left atrium is borderline dilated. * Right atrial size is normal. * There is no evidence of atrial septal defect, but resolution does not allow assessment for a patent foramen ovale. Mitral Valve * The mitral valve is normal. * There is no mitral valve stenosis. * There is moderate mitral regurgitation. Tricuspid Valve * The tricuspid valve is normal. * There is no tricuspid stenosis. * There is trace tricuspid regurgitation. * Doppler findings do not suggest pulmonary hypertension. Aortic Valve * The aortic valve is trileaflet. * Aortic valve sclerosis mild, without significant aortic valvular stenosis. * Aortic stenosis is absent. * There is no significant aortic regurgitation. Pulmonic Valve * The pulmonary valve is not well seen, but the Doppler examination is normal without significant regurgitation or stenosis. Great Vessels * The aortic root and proximal ascending aorta are normal sized. Pericardium/Pleural * There is no pericardial effusion. Great Vessels * Intermediate inferior vena cava size and collapsability with sniff indicates a normal right atrial pressure of 8 mmHg. Left Ventricular Diastolic Function * Diastolic dysfunction, Grade II (pseudonormalization pattern). MMode 2D Measurements and Calculations IVSd 1.4 cm IVSs 1.9 cm LVIDd 5.4 cm LVIDs 5.0 cm LVPWd 1.4 cm LVPWs 1.4 cm IVS/LVPW 10 FS 7.1 % EDV(Teich) 140.9 ml ESV(Teich) 118.7 ml EF(Teich) 15.8 % EDV(cubed) 156.8 ml ESV(cubed) 125.6 ml EF(cubed) 19.9 % % IVS thick 33.9 % % LVPW thick -4.72 % LV mass(C)d 342.2 grams LV mass(C)dI 165.7 grams/m\S\2 LV mass(C)s 374.3 grams LV mass(C)sI 181.3 grams/m\S\2 SV(Teich) 22.2 ml SI(Teich) 10.8 ml/m\S\2 SV(cubed) 31.2 ml SI(cubed) 15.1 ml/m\S\2 Ao root diam 3.5 cm Ao root area 9.5 cm\S\2 LA dimension 3.7 cm LA/Ao 1.1 LVOT diam 2.0 cm LVOT area 3.1 cm\S\2 Doppler Measurements and Calculations MV E max shelby 54.8 cm/sec MV A max shelby 28.2 cm/sec MV E/A 1.9 MV P1/2t max shelby 126.2 cm/sec MV P1/2t 82.7 msec MVA(P1/2t) 2.7 cm\S\2 MV dec slope 446.8 cm/sec\S\2 MV dec time 0.22 sec Ao V2 max 117.5 cm/sec Ao max PG 5.5 mmHg Ao max PG (full) 3.4 mmHg ISAMAR(V,A) 2.0 cm\S\2 ISAMAR(V,D) 2.0 cm\S\2 LV V1 max PG 2.1 mmHg LV V1 max 73.1 cm/sec MR max shelby 436.9 cm/sec MR max PG 76.6 mmHg PA V2 max 94.5 cm/sec PA max PG 3.6 mmHg TR max shelby 297.5 cm/sec
[2017-01-02] VITALS (8 sets, daily range): BP systolic 93–121; BP diastolic 52–72; PULSE 54–81; TEMP 36.3–36.6; O2SAT 20–97
[2017-01-02 06:44] LABS: BUN/CREATININE RATIO 21.1 (10-20); CALCIUM 8.1 mg/dl (8.5-10.1); CREATININE 0.9 mg/dl (0.60-1.40); POTASSIUM 3.2 mmol/L (3.5-5.1)
[2017-01-02] MEDS: ASPIRIN 81 MG ECTAB PO SCH (07:45)
[2017-01-02] MEDS: FUROSEMIDE INJ 40 MG in SYRINGE 0 ML IV SCH (07:45)
[2017-01-02] MEDS: SUCRALFATE 1 GM/10 ML UDC PO SCH ×4 (07:45→19:56)
[2017-01-02] MEDS: METOPROLOL SUCC 25MG EXT REL TAB PO SCH (07:45)
[2017-01-02] MEDS: PANTOprazole SOD 40 MG TAB PO SCH (07:46)
[2017-01-02] MEDS: ENOXAPARIN 40 MG/0.4 ML SYR SC SCH (07:49)
[2017-01-02] MEDS ORDERED: POTASSIUM CHLORIDE 20 MEQ TABCR PO ONE (08:30)
[2017-01-02] MEDS ORDERED: SPIRONOLACTONE 25 MG TAB PO SCH (09:00)
--- NOTE | 2017-01-02 10:13 | Cardiology Follow-Up ---
Subjective General Date of Service: Jan 02, 2017. Chief Complaint: SOB; CHF Pt evaluation today including: conversation w/ patient, conversation w/ family , physical exam, chart review, lab review, review of studies, conversation w/ [facility] consultant, review of inpatient medication list History of Present Illness Patient feeling "ok" this AM. Continues to note significant dyspnea on exertion and at ret. Worse than 1 week ago, but mildly improved from admission. No chest pain. Hypoxic off supplmental O2. No specific orthopnea. Edema mildly improved. No dizziness, syncope or near syncope. No palpitations. He notes ongoing cough with clear/green sputum production. No fever or chills. Patient reports no significant urine output, however on I+O measurements, he is -4L since admission. Allergies Coded Allergies: Lisinopril (Unverified Adverse Reaction, Intermediate, HIGH POTASSIUM LEVELS, 12/31/16) Atorvastatin (Verified Adverse Reaction, Unknown, muscle weakness in legs , 12/31/16) Social History Smoking Status: Former Smoker Hx Tobacco Use In Past Year?: Yes Hx Alcohol Use - Type And Amou: Yes Hx Substance Use - Type And Am: No Problem List Medical Problems: (1) CHF (congestive heart failure) Permanent Comment: echo 12/04/2016- EF 45%, grade II diastolic dysfunction Status: Chronic (2) Elevated troponin Status: Acute Review of Systems Respiratory: + cough, + sputum, + shortness of breath, + dyspnea on exertion, + dyspnea at rest, No wheezing, No hemoptysis Cardiac: + edema, No chest pain, No orthopnea, No PND, No palpitations Physical Exam Vital Signs Last Vital Signs Documentation Date Time Temp Pulse Resp B/P (MAP) Pulse Ox O2 Delivery O2 Flow Rate FiO2 01/02/17 08:00 87 Room Air 01/02/17 07:35 36.6 60 18 121/63 (82) 4.0 Physical Exam Constitutional: General Apperance: obese Level of Distress: NAD Ambulation: ambulating normally Psychiatric: Mental Status: active & alert Orientation: to time, to place, to person Head: normocephalic Eyes: Pupils: PERRLA Neck: supple Lungs: Auscultation: no rales/crackles, no rhonchi, deminished air movement, decreased breath sounds Cardiovascular: Heart Auscultation: RRR, normal S1, normal S2, no murmurs Peripheral Pulses: Dorsalis Pedis Pulse: normal on the left, normal on the right Abdomen: Bowel Sounds: normal Inspection & Palpation: non-distended Extremities: edema (1+ pretibial and ankle edema b/l) Assessment and Plan Assessment and Plan 76 year old male 1. Acute on chronic systolic heart failure exacerbation 2. Presumed ischemic cardiomyopathy with LVEF 45% per last echo in 11/2016, now LVEF 30-35% per echo yesterday. 3. 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 Med management at that time, as patient was asymptomatic. 4. LBBB 5. Hypertension 6. Dyslipidemia. Allergy to atorvastatin noted. RECOMMENDATIONS/PLAN: Ongoing symptoms. Worsening hypoxia noted this AM. Increase furosemide IV to 80 mg BID. Continue spironolactone 12.5 mg daily, consider increasing dose. Supplemental potassium given this AM. Recheck potassium level prior to afternoon diuretics. Monitor I+O's. Fluid restriction of 1500 ml Decline in LV function noted. Discussed with multiple family members at bedside and on the phone. Continued diuresis recommended and consideration of cardiac cath once volume status improves. [employer] with BIV also may be beneficial given LBBB and LVEF < 35% Continue metoprolol succinate 25 mg daily for cardiomyopathy Recommend trial of losartan in the future due to cardiomyopathy. Monitor renal function/potassium. Consider adding Crestor as well for dyslipidemia and underlying CAD. DVT proph with lovenox. Case to be discussed with Dr. Briggs. Will follow. CARDIOLOGY ATTENDING ADDENDUM: The patient was seen and personally examined. Agree with Danya Vu PA-C's findings and plans as documented above with additions as noted below. Subjective: The patient's respiratory status is improved compared to when I saw him yesterday afternoon, but he still has congestion. He has had a significant amount of urine output on diuretic therapy thus far. With interval improvement in his chest x-ray. Potassium was low this morning but is been replaced. There is a 10 beat run of tachycardia this morning, it appears to be supraventricular in etiology such as an SVT. Impression: 1. Acute decompensation, acute systolic/diastolic, combined heart failure in the setting of moderate LV systolic dysfunction, underlying ischemic heart disease with chronic RCA territory scar, left bundle branch block, and diastolic dysfunction on echocardiogram 2. Hypokalemia 3. Left bundle branch block Plan: Increase IV furosemide to 80 mg IV twice a day. Increase spironolactone 25 mg by mouth daily. Monitor electrolytes and kidney function. Keep track of intake and output. If patient continues to improve from a volume status standpoint, will plan for proceeding with pharmacologic nuclear stress test tomorrow to determine ischemia burden versus scar. With the patient's permission, I updated his niece, Suzy Gross by phone, Laboratory Results Last 24 Hours Test 01/01/17 20:19 01/02/17 05:13 01/02/17 05:54 Bedside Glucose 129 mg/dl 115 mg/dl Sodium Level 141 mmol/L Potassium Level 3.2 mmol/L Chloride Level 102 mmol/L Carbon Dioxide Level 34 mmol/L Anion Gap 5.0 mmol/L Blood Urea Nitrogen 19 mg/dl Creatinine 0.90 mg/dl Est Creatinine Clear Calc Drug Dose 79.3 ml/min Estimated GFR () 97.2 Estimated GFR (Non- 83.8 BUN/Creatinine Ratio 21.1 Random Glucose 115 mg/dl Calcium Level 8.1 mg/dl
[2017-01-02] MEDS ORDERED: FUROSEMIDE INJ 40 MG in SYRINGE 0 ML IV ONE (10:15)
--- NOTE | 2017-01-02 10:34 | DIAGNOSTIC IMAGING REPORT ---
CHEST 2 VIEWS ROUTINE CLINICAL HISTORY: chf dyspnea COMPARISON STUDY: 12/31/2016 FINDINGS: Mild stable cardiomegaly. Small unchanging left pleural effusion. Trace pleural fluid right base laterally. Diminished prominence of pulmonary vasculature. IMPRESSION: Improving congestive failure. The above report was generated using voice recognition software. It may contain grammatical, syntax or spelling errors. Electronically signed by: Ariel Miller M.D. 01/02/2017 10:33 AM Dictated Date/Time: 01/02/2017 10:32 AM
[2017-01-02] MEDS ORDERED: POTASSIUM CHLORIDE 10 MEQ TABCR PO STA (14:32)
[2017-01-02] MEDS: FUROSEMIDE INJ 80 MG in SYRINGE 0 ML IV SCH (16:32)
--- NOTE | 2017-01-02 18:30 | Progress Note ---
Medicine Progress Note Date & Time of Visit: Jan 02, 2017 at 18:26. Subjective Pt was seen and examined Sitting in chair with no distress he said that he walked today with his nephew He said that he continue to have SOB denies any chest pain, palpitation, dizziness Objective Last 8 Hrs Date Time Temp Pulse Resp B/P (MAP) Pulse Ox O2 Delivery O2 Flow Rate FiO2 01/02/17 16:00 Room Air 01/02/17 15:29 36.3 54 20 100/57 (71) 95 Room Air 01/02/17 13:34 Room Air 01/02/17 11:09 36.5 64 18 115/72 (86) 20 Oxymask Physical Exam: General- No acute distress Head- atraumatic Eyes- PERRL, EOMI ENT- oropharynx clear Neck- supple, no JVD Lungs- decrease BS Heart- regular rhythm; no murmur Abdomen- normal bowel sounds, soft Extremities- no calf tenderness Neuro- alert, oriented x 3; PERRL, EOMI Skin- warm & dry Laboratory Results: Last 24 Hours Test 01/01/17 20:19 01/02/17 05:13 01/02/17 05:54 01/02/17 11:02 Bedside Glucose 129 mg/dl 115 mg/dl 116 mg/dl Sodium Level 141 mmol/L Potassium Level 3.2 mmol/L Chloride Level 102 mmol/L Carbon Dioxide Level 34 mmol/L Anion Gap 5.0 mmol/L Blood Urea Nitrogen 19 mg/dl Creatinine 0.90 mg/dl Est Creatinine Clear Calc Drug Dose 79.3 ml/min Estimated GFR () 97.2 Estimated GFR (Non- 83.8 BUN/Creatinine Ratio 21.1 Random Glucose 115 mg/dl Calcium Level 8.1 mg/dl Test 01/02/17 15:14 01/02/17 16:18 Potassium Level 3.9 mmol/L Bedside Glucose 143 mg/dl Assessment & Plan ACUTE SYSTOLIC CHF EXACERBATION Present with SOB and Hypoxia CXR on admission showed pulmonary edema with small bilateral pleural effusions Pro-BNP elevated to approx 4K Mild elevated Troponin Received IV Lasix 40 mg in ER Continue IV lasix 40mg BID and metoprolo Monitor I/O Sodium restriction Cardiology on board Echo pending 01/02 Continue to have SOB Lasix increased to 80mg BID IV Spironolactone increased to 25 mg daily monitor BMP Fluid restriction monitor I/O cardiology on board Plan for pharmacologic nuclear stress test tomorrow NPO after Midnight ECHO showed * Moderate concentric left ventricular hypertrophy is present in segments with relatively normal wall motion. * There is thinning of the inferior and inferolateral ye. * Septal motion is consistent with conduction abnormality. * There is a large sized apical inferior, inferior, and inferolateral wall motion abnormality with hypokinesis to akinesis of the segments. * The qualitative left ventricular ejection fraction =30-34%. * There is moderate mitral regurgitation. * Diastolic dysfunction, Grade II (pseudonormalization pattern). * There is trace tricuspid regurgitation. * Doppler findings do not suggest pulmonary hypertension. Elevated troponin Secondary to acute systolic CHF exacerbation Denies any chest pain EKG showed no ischemic changes continue monitor in tele HISTORY OF [place] Elevated troponin due to CHF exacerbation EKG showed no acute ischemic changes Currently chest pain free Continue Asa and metoprolol HYPERTENSION BP stable Continue amlodipine and metoprolol succinate DM TYPE 2 Recent A1c 6.7 on 11/28/2016 No on any DM med Continue monitor BS DYSLIPIDEMIA Pt discontinued statin due to side effect of much ache GERD Continue PPI DVT PROPHYLAXIS Lovenox SQ CODE STATUS Full code DISPOSITION Continue monitor in Tele Consultants: Cardiology Current Inpatient Medications: Current Inpatient Medications Medications (Trade) Dose Ordered Sig/Shakira Route Start Time Stop Time Status Last Admin Dose Admin Enoxaparin Sodium (Lovenox Inj) 40 mg DAILY SC 01/01/17 09:00 01/31/17 08:59 01/02/17 07:49 40 MG Acetaminophen (Tylenol Tab) 650 mg Q4H PRN PO 12/31/16 20:00 01/30/17 19:59 Ondansetron HCl (Zofran Inj) 4 mg Q6H PRN IV 12/31/16 20:00 01/30/17 19:59 Nitroglycerin (Nitrostat Tab) 0.4 mg UD PRN SL 12/31/16 20:00 01/30/17 19:59 Morphine Sulfate (MoRPHine SULFATE INJ) 2 mg Q30M PRN IV 12/31/16 20:00 01/14/17 19:59 Polyethylene (Miralax Powder Packet) 17 gm DAILY PRN PO 12/31/16 20:00 01/30/17 19:59 Aspirin (Ecotrin Tab) 81 mg QAM PO 01/01/17 09:00 01/31/17 08:59 01/02/17 07:45 81 MG Albuterol/ Ipratropium (Combivent Respimat Inh) 1 puffs QID PRN INH 12/31/16 20:15 01/30/17 20:14 Metoprolol Succinate (Toprol Xl Tab) 25 mg DAILY PO 01/01/17 09:00 01/31/17 08:59 01/02/17 07:45 25 MG Sucralfate (Carafate Susp) 1 gm ACHS PO 12/31/16 21:00 01/30/17 20:59 01/02/17 16:32 1 GM Pantoprazole Sodium (Protonix Tab) 40 mg QAM PO 01/01/17 09:00 01/31/17 08:59 01/02/17 07:46 40 MG Furosemide 80 mg/ Syringe 8 ml @ 4 mls/min BID17 IV 01/02/17 17:00 02/01/17 16:59 01/02/17 16:32 4 MLS/MIN Spironolactone (Aldactone Tab) 25 mg QAM PO 01/03/17 09:00 02/02/17 08:59 Rosuvastatin Calcium (Crestor Tab) 5 mg QAM PO 01/03/17 09:00 02/02/17 08:59
[2017-01-03] VITALS (7 sets, daily range): BP systolic 101–130; BP diastolic 54–83; PULSE 61–73; TEMP 36.4–37; O2SAT 90–94
[2017-01-03 05:02] LABS: BUN/CREATININE RATIO 19.4 (10-20); CALCIUM 8.3 mg/dl (8.5-10.1); CREATININE 1.19 mg/dl (0.60-1.40); MAGNESIUM 2.2 mg/dl (1.8-2.4); POTASSIUM 3.6 mmol/L (3.5-5.1)
[2017-01-03] MEDS: SPIRONOLACTONE 25 MG TAB PO SCH (07:44)
[2017-01-03] MEDS: SUCRALFATE 1 GM/10 ML UDC PO SCH ×4 (07:44→21:16)
[2017-01-03] MEDS: ROSUVASTATIN CALCIUM 5 MG TAB PO SCH (07:45)
[2017-01-03] MEDS: ASPIRIN 81 MG ECTAB PO SCH (07:45)
[2017-01-03] MEDS: PANTOprazole SOD 40 MG TAB PO SCH (07:45)
[2017-01-03] MEDS: METOPROLOL SUCC 25MG EXT REL TAB PO SCH (07:46)
[2017-01-03] MEDS: ENOXAPARIN 40 MG/0.4 ML SYR SC SCH (07:46)
[2017-01-03] MEDS: FUROSEMIDE INJ 80 MG in SYRINGE 0 ML IV SCH ×2 (07:54→16:03)
--- NOTE | 2017-01-03 09:46 | Cardiology Follow-Up ---
Subjective General Date of Service: Jan 03, 2017. Chief Complaint: SOB; CHF Pt evaluation today including: conversation w/ patient, physical exam, chart review, lab review, review of studies, review of inpatient medication list History of Present Illness Patient feeling better this AM. States dyspnea significantly improving. Trying to wean oxygen requirements this AM. Now on 3 L and maintaining 94%. Denies chest pain. Is NPO for nuclear stress test today. Edema improving. Still productive cough with green sputum. No orthopnea. No dizziness. No palpitations. Allergies Coded Allergies: Lisinopril (Unverified Adverse Reaction, Intermediate, HIGH POTASSIUM LEVELS, 12/31/16) Atorvastatin (Verified Adverse Reaction, Unknown, muscle weakness in legs , 12/31/16) Social History Smoking Status: Former Smoker Hx Tobacco Use In Past Year?: Yes Hx Alcohol Use - Type And Amou: Yes Hx Substance Use - Type And Am: No Problem List Medical Problems: (1) CHF (congestive heart failure) Permanent Comment: echo 12/04/2016- EF 45%, grade II diastolic dysfunction Status: Chronic (2) Elevated troponin Status: Acute Review of Systems Respiratory: + cough, + sputum, + shortness of breath, No wheezing, No dyspnea at rest, No hemoptysis Cardiac: + edema, No chest pain, No orthopnea, No PND, No palpitations Physical Exam Vital Signs Last Vital Signs Documentation Date Time Temp Pulse Resp B/P (MAP) Pulse Ox O2 Delivery O2 Flow Rate FiO2 01/03/17 08:00 94 Nasal Cannula 3.0 01/03/17 07:50 36.6 73 16 101/54 (70) Physical Exam Constitutional: General Apperance: obese Level of Distress: NAD Ambulation: ambulating normally Psychiatric: Mental Status: active & alert Orientation: to time, to place, to person Head: normocephalic Eyes: Pupils: PERRLA Neck: supple Lungs: Auscultation: no rales/crackles, no rhonchi, deminished air movement, decreased breath sounds Cardiovascular: Heart Auscultation: RRR, normal S1, normal S2, no murmurs Peripheral Pulses: Dorsalis Pedis Pulse: normal on the left, normal on the right Abdomen: Bowel Sounds: normal Inspection & Palpation: non-distended Extremities: edema (1+ pretibial and ankle edema b/l) Assessment and Plan Assessment and Plan 76 year old male 1. Acute on chronic systolic heart failure exacerbation 2. Presumed ischemic cardiomyopathy with LVEF 45% per last echo in 11/2016, now LVEF 30-35% per echo yesterday. 3. 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 Med management at that time, as patient was asymptomatic. 4. LBBB 5. Hypertension 6. Dyslipidemia. Allergy to atorvastatin noted. RECOMMENDATIONS/PLAN: Clinically improving over the last 24 hours. Diuresing well Improved oxygenation and respiratory status. Continue IV furosemide today. Continue spironolactone 25 mg daily. Monitor I+O's. Fluid restriction of 1500 ml Plan for nuclear stress testing today to r/o ischemia vs old scar. Will need to initiate trial of losartan 25 mg daily. Monitor potassium, renal function, and BP. Continue metoprolol succinate 25 mg daily for cardiomyopathy DVT proph with lovenox. Case to be discussed with Dr. Briggs. Will follow. CARDIOLOGY ATTENDING ADDENDUM: The patient was seen and personally examined. Agree with Danya Vu PA-C's findings and plans as documented above. Refer to separate progress note completed by the undersigned for data updated, plan of care updates and my examination. Laboratory Results Last 24 Hours Test 01/02/17 11:02 01/02/17 15:14 01/02/17 16:18 01/02/17 20:40 Bedside Glucose 116 mg/dl 143 mg/dl 165 mg/dl Potassium Level 3.9 mmol/L Test 01/03/17 04:31 01/03/17 06:53 Sodium Level 140 mmol/L Potassium Level 3.6 mmol/L Chloride Level 101 mmol/L Carbon Dioxide Level 35 mmol/L Anion Gap 4.0 mmol/L Blood Urea Nitrogen 23 mg/dl Creatinine 1.19 mg/dl Est Creatinine Clear Calc Drug Dose 60.0 ml/min Estimated GFR () 69.3 Estimated GFR (Non- 59.8 BUN/Creatinine Ratio 19.4 Random Glucose 143 mg/dl Calcium Level 8.3 mg/dl Magnesium Level 2.2 mg/dl Bedside Glucose 112 mg/dl
[2017-01-03] MEDS ORDERED: REGADENOSON 0.4 MG/5 ML SYR ONE (13:00)
--- NOTE | 2017-01-03 14:45 | MYOCARDIAL PERFUSION SCAN ---
DATE OF PROCEDURE: 01/03/2017 INDICATION FOR PROCEDURE: Congestive heart failure, history of ischemic heart disease. PROVIDER REQUESTING TEST: Dr. Briggs. ROTOR WINDER: Dr. Brgigs. PROCEDURE: After informed consent was obtained pharmacologic stress testing was performed with intravenous administration of 0.4 mg of Lexiscan over a 15 second IV infusion. The injection of Lexiscan was immediately followed by a 5 mL normal saline flush. The injection of saline was immediately followed by an injection of technetium-99m sestamibi and 5 mL saline flush. TECHNIQUE: For the stress portion of the study, 32.7 mCi of Technetium-99m Cardiolite IV was injected at 1315 on 01/03/2017. Thirty minutes following the injection, imaging of the heart was performed in multiple projections. For the rest portion of the study, 10.5 mCi of Technetium-99m Cardiolite was injected intravenously at 11:30 a.m. One hour following the injection, imaging of the heart was performed in the same projections. EXERCISE DATA: The resting heart rate of 75 beats per minute joslyn to a maximum heart rate of 93 beats per minute. This value represents 63% of the maximal age predicted heart rate. The resting blood pressure of 120/80 mmHg joslyn to a maximum blood pressure of 128 mmHg. The stress test was terminated due to the end of the pharmacologic protocol. EKG DATA: Baseline EKG revealed sinus rhythm at 64 beats per minute with left bundle branch block and resultant repolarization abnormalities. Occasional ventricular ectopy was noted on the resting EKG. The stress EKG was inconclusive for excluding ischemia due to the underlying left bundle branch block. Occasional isolated premature ventricular contractions were noted on the stress EKG and occasional ventricular couplets were also noted. The patient reported no symptoms with Lexiscan administration. FINDINGS: The overall quality of the study is good. The left ventricular cavity size was noted to be severely dilated on the stress and rest studies. There is no evidence of transient ischemic dilatation of the left ventricle. The right ventricle is not well visualized. Stress SPECT images reveal a large sized perfusion defect of severe intensity encompassing the inferior, inferolateral, and lateral myocardial ye. Resting SPECT images are unchanged revealing a fixed inferior, inferolateral, and lateral perfusion defect. Gated SPECT images reveal diffuse hypokinesis. The calculated left ventricular ejection fraction was 60%, but this was felt to be underestimated due to the significant lack of counts in the inferior and inferolateral segments, making this calculation technically inadequate. No qualitative assessment of ejection fraction can be made on this study due to the lack of counts in the inferior and inferolateral segments. FINAL IMPRESSION: 1. Abnormal pharmacologic myocardial perfusion imaging study revealing a large sized fixed perfusion defect encompassing the inferior, inferolateral, and lateral ye consistent with a large sized scar in this territory. The perfusion to the septal and anterior ye are normal and is spared. 2. Severe left ventricular chamber dilatation is noted. 3. The ejection fraction cannot adequately be assessed with this study due to the severe lack of counts in the inferior and inferior lateral ye. MTDD
--- NOTE | 2017-01-03 15:28 | Cardiology Follow-Up ---
Subjective General Date of Service: Jan 03, 2017. Chief Complaint: follow up shortness of breath Pt evaluation today including: conversation w/ patient, conversation w/ family , physical exam, chart review, lab review, review of studies History of Present Illness Mr Marie patient is a 76 year old male seen today in cardiology follow-up with patient having initially been seen for some this morning prior to his pharmacologic nuclear stress test, I then saw him again in the nuclear medicine department while I supervised the test, and the night saw him upstairs and discussed the test results with the patient and the family present. He notes marked improvement thus far in his shortness of breath compared to when he presented to the emergency department with progressive shortness of breath on 12/31/16. He continues to respond well to diuretic therapy, and diuresed 3.1 L on 01/01, 3.5 L on 01/02, and 1.6 L thus far today. His blood pressure remains stable. There was a significant interval improvement on his chest x-ray performed on presentation on 12/31 compared to the repeat performed on 01/02/17. EKG tracings performed this hospital stay revealed persistent sinus rhythm with left bundle branch block, the QRS duration is prolonged at 160 ms, and occasional ventricular ectopy is noted on telemetry was also present during his stress test today. Allergies Coded Allergies: Lisinopril (Unverified Adverse Reaction, Intermediate, HIGH POTASSIUM LEVELS, 12/31/16) Atorvastatin (Verified Adverse Reaction, Unknown, muscle weakness in legs , 12/31/16) Social History Smoking Status: Former Smoker Hx Tobacco Use In Past Year?: Yes Hx Alcohol Use - Type And Amou: Yes Hx Substance Use - Type And Am: No Problem List Physical Exam Vital Signs Last Vital Signs Documentation Date Time Temp Pulse Resp B/P (MAP) Pulse Ox O2 Delivery O2 Flow Rate FiO2 01/03/17 14:00 37.0 61 16 117/83 (94) 90 Room Air 01/03/17 08:00 3.0 Physical Exam Constitutional: General Apperance: obese Level of Distress: NAD Ambulation: ambulating normally Psychiatric: Mental Status: active & alert Orientation: to time, to place, to person Head: normocephalic Eyes: Pupils: PERRLA Neck: supple Lungs: Auscultation: no rales/crackles, no rhonchi, deminished air movement, decreased breath sounds Cardiovascular: Heart Auscultation: RRR, normal S1, normal S2, no murmurs Peripheral Pulses: Dorsalis Pedis Pulse: normal on the left, normal on the right Abdomen: Bowel Sounds: normal Inspection & Palpation: non-distended Extremities: edema (1+ pretibial and ankle edema b/l) Neurologic: Gait & Station: pertinent finding (no focal deficits) Assessment and Plan Assessment and Plan Summary of transthoracic echocardiogram performed 01/01/17 and reviewed independently by the undersigned: Moderate concentric left ventricular hypertrophy is present in the segments with relative normal wall motion There is thinning of the inferior and inferolateral ye consistent with myocardial scar Septal motion is consistent with underlying left bundle branch block There is a large sized apical inferior, inferior, inferolateral wall motion abnormality with hypokinesis to akinesis of the segments. The qualitative and calculated left ventricular ejection fraction is moderately reduced in the range of 30-34%. Moderate mitral regurgitation is present Grade 2 diastolic dysfunction is present Summary of pharmacologic nuclear stress test performed today 01/03/17 and reviewed by the undersigned: 1. Abnormal pharmacologic myocardial perfusion imaging study revealing a large sized fixed perfusion defect encompassing the inferior, inferolateral, and lateral ye extending from the basal segments to the apical segments with a large sized scar territory. The perfusion to the septal and anterior ye are normal and are spared. 2. Severe left ventricular chamber dilatation noted 3. The left jugular ejection fraction could not adequately be assessed by this technique due to the severe lack of counts in the inferior and inferolateral ye IMPRESSION: 76 year old male 1. 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 2. Nuclear perfusion imaging data supports the diagnosis of ischemic cardiomyopathy, with large sized inferior, inferolateral scar, LV ejection fraction in the range of 30-34% by echocardiogram 3. 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 Med management at that time, as patient was asymptomatic. 4. LBBB, prolonged QRS duration 160 ms, occasional PVCs 5. Hypertension 6. Dyslipidemia. Allergy to atorvastatin noted. Tolerating low-dose rosuvastatin here in the hospital RECOMMENDATIONS/PLAN: Continue intensive IV diuretic therapy, furosemide 80 mg IV twice a day. -At discharge, consider transitioning to oral torsemide 20 mg by mouth daily versus 20 mg twice a day Continue spironolactone 25 mg by mouth daily Start losartan 25 mg by mouth daily on 01/04/17, past intolerance to lisinopril noted due to hyperkalemia and therefore will need to monitor potassium levels closely. Continue metoprolol succinate 25 mg by mouth daily Continue rosuvastatin 5 mg by mouth daily I had a long discussion with the patient and family. Based on the stress test results, it appears that he has a large myocardial scar without superimposed ischemia. I therefore recommend ongoing indication management for his presumed ischemic cardiomyopathy with acute systolic and diastolic heart failure decompensation. Based on ischemic cardiomyopathy, with LVEF less than 35%, and left bundle branch block with long QRS duration of 160 ms, he may favor beneficially from the symptom standpoint with cardiac resynchronization therapy, and he is a candidate for AICD placement for prevention of sudden cardiac . Plan for ongoing medication therapy for 3 months at which time he will be reassessed clinically, and with a repeat echocardiogram to reassess his left ventricular ejection fraction as an outpatient. If his ejection fraction remains less than 35%, will consider biventricular AICD. In the meantime, patient is interested in having a [employer] Life Vest while he is within the 3 month window of medication therapy , for prevention of sudden cardiac . I have completed the order form, I will ask case management to assist with perhaps having the technical services representative from the company common for the patient for the monitor this weekend before discharge, or perhaps he can be performed early next week as an outpatient at his home. Liana Briggs, Laboratory Results Last 24 Hours Test 01/02/17 15:14 01/02/17 16:18 01/02/17 20:40 01/03/17 04:31 Potassium Level 3.9 mmol/L 3.6 mmol/L Bedside Glucose 143 mg/dl 165 mg/dl Sodium Level 140 mmol/L Chloride Level 101 mmol/L Carbon Dioxide Level 35 mmol/L Anion Gap 4.0 mmol/L Blood Urea Nitrogen 23 mg/dl Creatinine 1.19 mg/dl Est Creatinine Clear Calc Drug Dose 60.0 ml/min Estimated GFR () 69.3 Estimated GFR (Non- 59.8 BUN/Creatinine Ratio 19.4 Random Glucose 143 mg/dl Calcium Level 8.3 mg/dl Magnesium Level 2.2 mg/dl Test 01/03/17 06:53 01/03/17 11:06 Bedside Glucose 112 mg/dl 112 mg/dl
--- NOTE | 2017-01-03 19:04 | Progress Note ---
Medicine Progress Note Date & Time of Visit: Jan 03, 2017 at 16:51. Subjective Pt was seen and examined Sitting in chair resting comfortable with no distress Pt said that he feels much better compare to when he came He said that his breathing much improves Denies any chest pain, palpitation and sob Objective Last 8 Hrs Date Time Temp Pulse Resp B/P (MAP) Pulse Ox O2 Delivery O2 Flow Rate FiO2 01/03/17 16:00 Room Air 01/03/17 15:40 36.4 69 20 112/65 (81) 90 Room Air 01/03/17 14:00 37.0 61 16 117/83 (94) 90 Room Air 01/03/17 12:00 Room Air Physical Exam: General- No acute distress Head- atraumatic Eyes- PERRL, EOMI ENT- oropharynx clear Neck- supple, no JVD Lungs- No wheezing Heart- regular rhythm; no murmur Abdomen- normal bowel sounds, soft Extremities- no calf tenderness Neuro- alert, oriented x 3; PERRL, EOMI Skin- warm & dry Laboratory Results: Last 24 Hours Test 01/02/17 20:40 01/03/17 04:31 01/03/17 06:53 01/03/17 11:06 Bedside Glucose 165 mg/dl 112 mg/dl 112 mg/dl Sodium Level 140 mmol/L Potassium Level 3.6 mmol/L Chloride Level 101 mmol/L Carbon Dioxide Level 35 mmol/L Anion Gap 4.0 mmol/L Blood Urea Nitrogen 23 mg/dl Creatinine 1.19 mg/dl Est Creatinine Clear Calc Drug Dose 60.0 ml/min Estimated GFR () 69.3 Estimated GFR (Non- 59.8 BUN/Creatinine Ratio 19.4 Random Glucose 143 mg/dl Calcium Level 8.3 mg/dl Magnesium Level 2.2 mg/dl Test 01/03/17 16:36 Bedside Glucose 234 mg/dl Assessment & Plan ACUTE SYSTOLIC CHF EXACERBATION Present with SOB and Hypoxia CXR on admission showed pulmonary edema with small bilateral pleural effusions Pro-BNP elevated to approx 4K Mild elevated Troponin Received IV Lasix 40 mg in ER Continue IV lasix 40mg BID and metoprolo Monitor I/O Sodium restriction Cardiology on board Echo pending 01/02 Continue to have SOB Lasix increased to 80mg BID IV Spironolactone increased to 25 mg daily monitor BMP Fluid restriction monitor I/O cardiology on board Plan for pharmacologic nuclear stress test tomorrow NPO after Midnight 01/03 Clinically improved Pharmacologic nuclear stress test done showed abnormal pharmacologic myocardial perfusion imaging study revealing a large sized fixed perfusion defect encompassing the inferior, inferolateral, and lateral ye extending from the basal segments to the apical segments with a large sized scar territory. Due to EF less than 35%, he is a candidate for AICD placement for prevention of sudden cardiac . Continue medical management for now as per cardiology Repeat Echo in 3 month to reevaluate the EF, if no improvement will need to get AICD placement For now order placed Zoll Life Vest for prevention of sudden cardiac in the meantime while reevaluate in 3 months with repeat ECHO Continue Lasix 80mg IV BID Plan to discharge on Torsemide 20 mg daily Continue monitor BMP ECHO showed * Moderate concentric left ventricular hypertrophy is present in segments with relatively normal wall motion. * There is thinning of the inferior and inferolateral ye. * Septal motion is consistent with conduction abnormality. * There is a large sized apical inferior, inferior, and inferolateral wall motion abnormality with hypokinesis to akinesis of the segments. * The qualitative left ventricular ejection fraction =30-34%. * There is moderate mitral regurgitation. * Diastolic dysfunction, Grade II (pseudonormalization pattern). * There is trace tricuspid regurgitation. * Doppler findings do not suggest pulmonary hypertension. Elevated troponin Secondary to acute systolic CHF exacerbation Denies any chest pain EKG showed no ischemic changes continue monitor in tele Stable HISTORY OF [place] Elevated troponin due to CHF exacerbation EKG showed no acute ischemic changes Currently chest pain free Continue Asa and metoprolol HYPERTENSION BP stable Continue amlodipine and metoprolol succinate DM TYPE 2 Recent A1c 6.7 on 11/28/2016 No on any DM med Continue monitor BS DYSLIPIDEMIA Pt discontinued statin due to side effect of much ache GERD Continue PPI DVT PROPHYLAXIS Lovenox SQ CODE STATUS Full code DISPOSITION Continue monitor in Tele Consultants: Cardiology Current Inpatient Medications: Current Inpatient Medications Medications (Trade) Dose Ordered Sig/Shakira Route Start Time Stop Time Status Last Admin Dose Admin Enoxaparin Sodium (Lovenox Inj) 40 mg DAILY SC 01/01/17 09:00 01/31/17 08:59 01/03/17 07:46 40 MG Acetaminophen (Tylenol Tab) 650 mg Q4H PRN PO 12/31/16 20:00 01/30/17 19:59 Ondansetron HCl (Zofran Inj) 4 mg Q6H PRN IV 12/31/16 20:00 01/30/17 19:59 Nitroglycerin (Nitrostat Tab) 0.4 mg UD PRN SL 12/31/16 20:00 01/30/17 19:59 Morphine Sulfate (MoRPHine SULFATE INJ) 2 mg Q30M PRN IV 12/31/16 20:00 01/14/17 19:59 Polyethylene (Miralax Powder Packet) 17 gm DAILY PRN PO 12/31/16 20:00 01/30/17 19:59 Aspirin (Ecotrin Tab) 81 mg QAM PO 01/01/17 09:00 01/31/17 08:59 01/03/17 07:45 81 MG Albuterol/ Ipratropium (Combivent Respimat Inh) 1 puffs QID PRN INH 12/31/16 20:15 01/30/17 20:14 Metoprolol Succinate (Toprol Xl Tab) 25 mg DAILY PO 01/01/17 09:00 01/31/17 08:59 01/03/17 07:46 25 MG Sucralfate (Carafate Susp) 1 gm ACHS PO 12/31/16 21:00 01/30/17 20:59 01/03/17 16:03 1 GM Pantoprazole Sodium (Protonix Tab) 40 mg QAM PO 01/01/17 09:00 01/31/17 08:59 01/03/17 07:45 40 MG Furosemide 80 mg/ Syringe 8 ml @ 4 mls/min BID17 IV 01/02/17 17:00 02/01/17 16:59 01/03/17 16:03 4 MLS/MIN Spironolactone (Aldactone Tab) 25 mg QAM PO 01/03/17 09:00 02/02/17 08:59 01/03/17 07:44 25 MG Rosuvastatin Calcium (Crestor Tab) 5 mg QAM PO 01/03/17 09:00 02/02/17 08:59 01/03/17 07:45 5 MG Losartan Potassium (coZAAR TAB) 25 mg QAM PO 01/04/17 09:00 02/03/17 08:59
[2017-01-04] VITALS (9 sets, daily range): BP systolic 92–112; BP diastolic 56–65; PULSE 59–69; TEMP 36–36.8; O2SAT 91–95
[2017-01-04 07:08] LABS: BUN/CREATININE RATIO 22.9 (10-20); CALCIUM 8.7 mg/dl (8.5-10.1); CREATININE 1.03 mg/dl (0.60-1.40); MAGNESIUM 2.4 mg/dl (1.8-2.4); POTASSIUM 3.4 mmol/L (3.5-5.1)
[2017-01-04] MEDS: SUCRALFATE 1 GM/10 ML UDC PO SCH ×4 (07:37→20:48)
[2017-01-04] MEDS: PANTOprazole SOD 40 MG TAB PO SCH (07:37)
[2017-01-04] MEDS: ASPIRIN 81 MG ECTAB PO SCH (07:37)
[2017-01-04] MEDS: METOPROLOL SUCC 25MG EXT REL TAB PO SCH (07:37)
[2017-01-04] MEDS: SPIRONOLACTONE 25 MG TAB PO SCH (07:38)
[2017-01-04] MEDS: ROSUVASTATIN CALCIUM 5 MG TAB PO SCH (07:38)
[2017-01-04] MEDS: LOSARTAN POTASSIUM 25 MG TAB PO SCH (07:38)
[2017-01-04] MEDS: ENOXAPARIN 40 MG/0.4 ML SYR SC SCH (07:38)
[2017-01-04] MEDS: FUROSEMIDE INJ 80 MG in SYRINGE 0 ML IV SCH (07:47)
[2017-01-04] MEDS ORDERED: POTASSIUM CHLORIDE 20 MEQ TABCR PO ONE (08:00)
--- NOTE | 2017-01-04 11:34 | Cardiology Follow-Up ---
Subjective General Date of Service: Jan 04, 2017. Chief Complaint: follow up shortness of breath Pt evaluation today including: conversation w/ patient, conversation w/ family , physical exam, chart review, lab review, review of studies, review of inpatient medication list History of Present Illness The patient is a 76 year old male seen in follow-up. No dysrhythmias on telemetry. Feeling better today. He has diuresed more than 6 kg since admission. Renal function remained stable. Mild hypokalemia noted on lab testing this a.m. Family members present at bedside. Patient awaiting placement of LifeVest. Offers no complaints this time. Allergies Coded Allergies: Lisinopril (Unverified Adverse Reaction, Intermediate, HIGH POTASSIUM LEVELS, 12/31/16) Atorvastatin (Verified Adverse Reaction, Unknown, muscle weakness in legs , 12/31/16) Social History Smoking Status: Former Smoker Hx Tobacco Use In Past Year?: Yes Hx Alcohol Use - Type And Amou: Yes Hx Substance Use - Type And Am: No Problem List Medical Problems: (1) CHF (congestive heart failure) Permanent Comment: echo 12/04/2016- EF 45%, grade II diastolic dysfunction Status: Chronic (2) Elevated troponin Status: Acute Review of Systems Respiratory: + cough, + sputum, + dyspnea on exertion, No wheezing, No shortness of breath, No dyspnea at rest Cardiac: + edema, No chest pain, No orthopnea, No PND, No claudication, No palpitations Physical Exam Vital Signs Last Vital Signs Documentation Date Time Temp Pulse Resp B/P (MAP) Pulse Ox O2 Delivery O2 Flow Rate FiO2 01/04/17 08:00 91 Room Air 2.0 01/04/17 07:48 36.0 68 18 105/58 (74) Physical Exam Constitutional: General Apperance: obese Level of Distress: NAD Ambulation: ambulating normally Psychiatric: Mental Status: active & alert Orientation: to time, to place, to person Head: normocephalic Eyes: Pupils: PERRLA Neck: supple Lungs: Auscultation: no rales/crackles, no rhonchi, deminished air movement, decreased breath sounds Cardiovascular: Heart Auscultation: RRR, normal S1, normal S2, no murmurs Peripheral Pulses: Dorsalis Pedis Pulse: normal on the left, normal on the right Abdomen: Bowel Sounds: normal Inspection & Palpation: non-distended Extremities: no clubbing, no ulcers, edema (1+ pretibial and ankle edema b/l) Neurologic: Gait & Station: pertinent finding (no focal deficits) Cranial Nerves: grossly intact Assessment and Plan Assessment and Plan Impression: 1. Acute decompensated systolic and diastolic heart failure secondary to ischemic cardiomyopathy EF 30-35%. -Volume status markedly improved since admission with more than 6 kg weight loss -Renal function remains stable with mild hypokalemia today 2. Nuclear stress test demonstrating fixed perfusion defect without ischemia. 3. 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 LBBB, prolonged QRS duration 160 ms, occasional PVCs 5. Hypertension - controlled 6. Dyslipidemia with history of allergic reaction to atorvastatin. Currently tolerating Crestor. 7. History of hyperkalemia related to ABBEY inhibitor RECOMMENDATIONS/PLAN: Discontinue IV diuretic therapy. Transition to oral torsemide 20mg BID. Supplement potassium as indicated. Losartan restarted today. Continue Aldactone, and Toprol-XL. Patient will be fitted for LifeVest today. Close heart failure clinic follow-up recommended in one week. Laboratory Results Last 24 Hours Test 01/03/17 16:36 01/03/17 20:10 01/04/17 06:05 01/04/17 06:34 Bedside Glucose 234 mg/dl 105 mg/dl 120 mg/dl Sodium Level 139 mmol/L Potassium Level 3.4 mmol/L Chloride Level 98 mmol/L Carbon Dioxide Level 35 mmol/L Anion Gap 6.0 mmol/L Blood Urea Nitrogen 24 mg/dl Creatinine 1.03 mg/dl Est Creatinine Clear Calc Drug Dose 67.7 ml/min Estimated GFR () 82.6 Estimated GFR (Non- 71.2 BUN/Creatinine Ratio 22.9 Random Glucose 145 mg/dl Calcium Level 8.7 mg/dl Magnesium Level 2.4 mg/dl Test 01/04/17 10:56 Bedside Glucose 263 mg/dl
--- NOTE | 2017-01-04 16:16 | Progress Note ---
Medicine Progress Note Date & Time of Visit: Jan 04, 2017 at 16:05. Subjective Pt was seen and examined Sitting in chair comfortable with no distress reading newspaper Pt said that he feels feels He said that since his Z[employer] life vest coming tomorrow, he wants to wait for it before discharging home He denies any chest pain, palpitation, dizziness and SOB Objective Last 8 Hrs Date Time Temp Pulse Resp B/P (MAP) Pulse Ox O2 Delivery O2 Flow Rate FiO2 01/04/17 15:24 36.6 69 20 112/65 (81) 93 Room Air 01/04/17 12:00 91 Room Air 2.0 01/04/17 11:44 36.5 61 20 102/57 (72) 91 Room Air Physical Exam: General- No acute distress Head- atraumatic Eyes- PERRL, EOMI ENT- oropharynx clear Neck- supple, no JVD Lungs- No wheezing Heart- regular rhythm; no murmur Abdomen- normal bowel sounds, soft Extremities- no calf tenderness Neuro- alert, oriented x 3; PERRL, EOMI Skin- warm & dry Laboratory Results: Last 24 Hours Test 01/03/17 16:36 01/03/17 20:10 01/04/17 06:05 01/04/17 06:34 Bedside Glucose 234 mg/dl 105 mg/dl 120 mg/dl Sodium Level 139 mmol/L Potassium Level 3.4 mmol/L Chloride Level 98 mmol/L Carbon Dioxide Level 35 mmol/L Anion Gap 6.0 mmol/L Blood Urea Nitrogen 24 mg/dl Creatinine 1.03 mg/dl Est Creatinine Clear Calc Drug Dose 67.7 ml/min Estimated GFR () 82.6 Estimated GFR (Non- 71.2 BUN/Creatinine Ratio 22.9 Random Glucose 145 mg/dl Calcium Level 8.7 mg/dl Magnesium Level 2.4 mg/dl Test 01/04/17 10:56 Bedside Glucose 263 mg/dl Assessment & Plan ACUTE SYSTOLIC CHF EXACERBATION Present with SOB and Hypoxia CXR on admission showed pulmonary edema with small bilateral pleural effusions Pro-BNP elevated to approx 4K Mild elevated Troponin Received IV Lasix 40 mg in ER Continue IV lasix 40mg BID and metoprolo Monitor I/O Sodium restriction Cardiology on board Echo pending 01/02 Continue to have SOB Lasix increased to 80mg BID IV Spironolactone increased to 25 mg daily monitor BMP Fluid restriction monitor I/O cardiology on board Plan for pharmacologic nuclear stress test tomorrow NPO after Midnight 01/04 Clinically improved Pharmacologic nuclear stress test done showed abnormal pharmacologic myocardial perfusion imaging study revealing a large sized fixed perfusion defect encompassing the inferior, inferolateral, and lateral ye extending from the basal segments to the apical segments with a large sized scar territory. Due to EF less than 35%, he is a candidate for AICD placement for prevention of sudden cardiac . Continue medical management for now as per cardiology Repeat Echo in 3 month to reevaluate the EF, if no improvement will need to get AICD placement For now order placed Zoll Life Vest for prevention of sudden cardiac in the meantime while reevaluate in 3 months with repeat ECHO D/C Lasix 80mg IV BID Staring Torsemide 20 mg BID Will check BMP btw 4-5 days Follow up with the heart failure clinic on Friday case discussed with cardiology OK from cardiac standpoint to discharge home Wants to leave tomorrow after he gets his Zoll life vest ECHO showed * Moderate concentric left ventricular hypertrophy is present in segments with relatively normal wall motion. * There is thinning of the inferior and inferolateral ye. * Septal motion is consistent with conduction abnormality. * There is a large sized apical inferior, inferior, and inferolateral wall motion abnormality with hypokinesis to akinesis of the segments. * The qualitative left ventricular ejection fraction =30-34%. * There is moderate mitral regurgitation. * Diastolic dysfunction, Grade II (pseudonormalization pattern). * There is trace tricuspid regurgitation. * Doppler findings do not suggest pulmonary hypertension. Elevated troponin Secondary to acute systolic CHF exacerbation Denies any chest pain EKG showed no ischemic changes continue monitor in tele Stable HISTORY OF [place] Elevated troponin due to CHF exacerbation EKG showed no acute ischemic changes Currently chest pain free Continue Asa and metoprolol HYPERTENSION BP stable Continue amlodipine and metoprolol succinate DM TYPE 2 Recent A1c 6.7 on 11/28/2016 No on any DM med Continue monitor BS DYSLIPIDEMIA Pt discontinued statin due to side effect of much ache GERD Continue PPI DVT PROPHYLAXIS Lovenox SQ CODE STATUS Full code DISPOSITION Continue monitor in Tele Follow up with PCP Dr. Horn (Dr. Jamil colleague) on 01/09 @ 10:45 AM Follow up with the Heart failure clinic on Friday Consultants: Cardiology Current Inpatient Medications: Current Inpatient Medications Medications (Trade) Dose Ordered Sig/Shakira Route Start Time Stop Time Status Last Admin Dose Admin Enoxaparin Sodium (Lovenox Inj) 40 mg DAILY SC 01/01/17 09:00 01/31/17 08:59 01/04/17 07:38 40 MG Acetaminophen (Tylenol Tab) 650 mg Q4H PRN PO 12/31/16 20:00 01/30/17 19:59 Ondansetron HCl (Zofran Inj) 4 mg Q6H PRN IV 12/31/16 20:00 01/30/17 19:59 Nitroglycerin (Nitrostat Tab) 0.4 mg UD PRN SL 12/31/16 20:00 01/30/17 19:59 Morphine Sulfate (MoRPHine SULFATE INJ) 2 mg Q30M PRN IV 12/31/16 20:00 01/14/17 19:59 Polyethylene (Miralax Powder Packet) 17 gm DAILY PRN PO 12/31/16 20:00 01/30/17 19:59 Aspirin (Ecotrin Tab) 81 mg QAM PO 01/01/17 09:00 01/31/17 08:59 01/04/17 07:37 81 MG Albuterol/ Ipratropium (Combivent Respimat Inh) 1 puffs QID PRN INH 12/31/16 20:15 01/30/17 20:14 Metoprolol Succinate (Toprol Xl Tab) 25 mg DAILY PO 01/01/17 09:00 01/31/17 08:59 01/04/17 07:37 25 MG Sucralfate (Carafate Susp) 1 gm ACHS PO 12/31/16 21:00 01/30/17 20:59 01/04/17 07:37 1 GM Pantoprazole Sodium (Protonix Tab) 40 mg QAM PO 01/01/17 09:00 01/31/17 08:59 01/04/17 07:37 40 MG Spironolactone (Aldactone Tab) 25 mg QAM PO 01/03/17 09:00 02/02/17 08:59 01/04/17 07:38 25 MG Rosuvastatin Calcium (Crestor Tab) 5 mg QAM PO 01/03/17 09:00 02/02/17 08:59 01/04/17 07:38 5 MG Losartan Potassium (coZAAR TAB) 25 mg QAM PO 01/04/17 09:00 02/03/17 08:59 01/04/17 07:38 25 MG Torsemide (Demadex Tab) 20 mg BID PO 01/04/17 21:00 02/03/17 20:59
[2017-01-04] MEDS: TORSEMIDE 20 MG TAB PO SCH (20:48)
[2017-01-05 05:15] VITALS: BP 99/40; PULSE 71; TEMP 36.8; O2SAT 91
[2017-01-05 07:05] LABS: BUN/CREATININE RATIO 23.3 (10-20); CALCIUM 8.5 mg/dl (8.5-10.1); CREATININE 1.07 mg/dl (0.60-1.40); POTASSIUM 3.4 mmol/L (3.5-5.1)
[2017-01-05 07:39] VITALS: BP 92/52; PULSE 68; TEMP 36.5; O2SAT 90
[2017-01-05] MEDS: SUCRALFATE 1 GM/10 ML UDC PO SCH ×2 (07:56→11:38)
[2017-01-05] MEDS: SPIRONOLACTONE 25 MG TAB PO SCH (07:56)
[2017-01-05] MEDS: TORSEMIDE 20 MG TAB PO SCH (07:56)
[2017-01-05] MEDS: ASPIRIN 81 MG ECTAB PO SCH (07:57)
[2017-01-05] MEDS: ROSUVASTATIN CALCIUM 5 MG TAB PO SCH (07:57)
[2017-01-05] MEDS: LOSARTAN POTASSIUM 25 MG TAB PO SCH (07:58)
[2017-01-05] MEDS: ENOXAPARIN 40 MG/0.4 ML SYR SC SCH (07:58)
[2017-01-05] MEDS: PANTOprazole SOD 40 MG TAB PO SCH (07:58)
[2017-01-05] MEDS: METOPROLOL SUCC 25MG EXT REL TAB PO SCH (07:58)
[2017-01-05 08:00] VITALS: O2SAT 93
[2017-01-05] MEDS ORDERED: POTASSIUM CHLORIDE 20 MEQ TABCR PO STA (11:09)
--- NOTE | 2017-01-05 11:39 | Cardiology Follow-Up ---
Subjective General Date of Service: Jan 05, 2017. Chief Complaint: follow up shortness of breath Pt evaluation today including: conversation w/ patient, physical exam, chart review, lab review, review of studies, review of inpatient medication list History of Present Illness The patient is a 76 year old male seen in follow-up. Borderline hypotensive this a.m. Denies lightheadedness or dizziness. Lower extremity edema has resolved. Renal function remained stable. Denies chest discomfort or shortness of breath. Patient is scheduled to be fitted for LifeVest today. He offers no complaints at this time. Allergies Coded Allergies: Lisinopril (Unverified Adverse Reaction, Intermediate, HIGH POTASSIUM LEVELS, 12/31/16) Atorvastatin (Verified Adverse Reaction, Unknown, muscle weakness in legs , 12/31/16) Social History Smoking Status: Former Smoker Hx Tobacco Use In Past Year?: Yes Hx Alcohol Use - Type And Amou: Yes Hx Substance Use - Type And Am: No Problem List Medical Problems: (1) CHF (congestive heart failure) Permanent Comment: echo 12/04/2016- EF 45%, grade II diastolic dysfunction Status: Chronic (2) Elevated troponin Status: Acute Review of Systems Respiratory: + dyspnea on exertion, No cough, No sputum, No wheezing, No shortness of breath, No dyspnea at rest, No hemoptysis Cardiac: No chest pain, No orthopnea, No PND, No edema, No claudication, No palpitations Physical Exam Vital Signs Last Vital Signs Documentation Date Time Temp Pulse Resp B/P (MAP) Pulse Ox O2 Delivery O2 Flow Rate FiO2 01/05/17 08:00 93 Room Air 01/05/17 07:39 36.5 68 20 92/52 (65) 01/05/17 04:00 2.0 Physical Exam Constitutional: General Apperance: obese Level of Distress: NAD Ambulation: ambulating normally Psychiatric: Mental Status: active & alert Orientation: to time, to place, to person Head: normocephalic Eyes: Pupils: PERRLA Neck: supple Lungs: Auscultation: no rales/crackles, no rhonchi, deminished air movement, decreased breath sounds Cardiovascular: Heart Auscultation: RRR, normal S1, normal S2, no murmurs Peripheral Pulses: Dorsalis Pedis Pulse: normal on the left, normal on the right Abdomen: Bowel Sounds: normal Inspection & Palpation: non-distended Extremities: no clubbing, no ulcers, edema (1+ pretibial and ankle edema b/l) Neurologic: Gait & Station: pertinent finding (no focal deficits) Cranial Nerves: grossly intact Assessment and Plan Assessment and Plan Impression: 1. Acute decompensated systolic and diastolic heart failure secondary to ischemic cardiomyopathy EF 30-35%. -Patient appears off D euvolemic and compensated today. -Renal function remains stable with mild hypokalemia 2. Nuclear stress test demonstrating fixed perfusion defect without ischemia. 3. 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 LBBB, prolonged QRS duration 160 ms, occasional PVCs 5. Hypertension - controlled 6. Dyslipidemia with history of allergic reaction to atorvastatin. Currently tolerating Crestor. 7. History of hyperkalemia related to ABBEY inhibitor RECOMMENDATIONS/PLAN: Reduce oral torsemide to 20 mg daily. Repeat basic metabolic panel on Friday or this week. Order for oral potassium supplementation place. Continue losartan, aldactone, and Toprol-XL. Patient will be fitted for LifeVest today. Close heart failure clinic follow-up recommended in one week. Laboratory Results Last 24 Hours Test 01/04/17 16:20 01/04/17 20:35 01/05/17 06:18 01/05/17 06:51 Bedside Glucose 100 mg/dl 118 mg/dl 130 mg/dl Sodium Level 140 mmol/L Potassium Level 3.4 mmol/L Chloride Level 99 mmol/L Carbon Dioxide Level 36 mmol/L Anion Gap 6.0 mmol/L Blood Urea Nitrogen 25 mg/dl Creatinine 1.07 mg/dl Est Creatinine Clear Calc Drug Dose 64.4 ml/min Estimated GFR () 78.8 Estimated GFR (Non- 68.0 BUN/Creatinine Ratio 23.3 Random Glucose 130 mg/dl Calcium Level 8.5 mg/dl
[2017-01-05 11:43] VITALS: BP 106/64; PULSE 73; TEMP 36.5; O2SAT 96
[2017-01-05 12:00] VITALS: O2SAT 93
--- NOTE | 2017-01-05 14:57 | Progress Note ---
Medicine Progress Note Date & Time of Visit: Jan 05, 2017 at 11:34. Subjective Pt was seen and examined Sitting in chair with no distress Pt said that he feels fine he said that he slept well Denies any chest pain, palpitation, dizziness and SOB Objective Last 8 Hrs Date Time Temp Pulse Resp B/P (MAP) Pulse Ox O2 Delivery O2 Flow Rate FiO2 01/05/17 12:00 93 Room Air 01/05/17 11:43 36.5 73 16 106/64 (78) 96 Room Air 01/05/17 08:00 93 Room Air 01/05/17 07:39 36.5 68 20 92/52 (65) 90 Room Air Physical Exam: General- No acute distress Head- atraumatic Eyes- PERRL, EOMI ENT- oropharynx clear Neck- supple, no JVD Lungs- No wheezing Heart- regular rhythm; no murmur Abdomen- normal bowel sounds, soft Extremities- no calf tenderness Neuro- alert, oriented x 3; PERRL, EOMI Skin- warm & dry Laboratory Results: Last 24 Hours Test 01/04/17 16:20 01/04/17 20:35 01/05/17 06:18 01/05/17 06:51 Bedside Glucose 100 mg/dl 118 mg/dl 130 mg/dl Sodium Level 140 mmol/L Potassium Level 3.4 mmol/L Chloride Level 99 mmol/L Carbon Dioxide Level 36 mmol/L Anion Gap 6.0 mmol/L Blood Urea Nitrogen 25 mg/dl Creatinine 1.07 mg/dl Est Creatinine Clear Calc Drug Dose 64.4 ml/min Estimated GFR () 78.8 Estimated GFR (Non- 68.0 BUN/Creatinine Ratio 23.3 Random Glucose 130 mg/dl Calcium Level 8.5 mg/dl Test 01/05/17 10:47 Bedside Glucose 186 mg/dl Assessment & Plan ACUTE SYSTOLIC CHF EXACERBATION Present with SOB and Hypoxia CXR on admission showed pulmonary edema with small bilateral pleural effusions Pro-BNP elevated to approx 4K Mild elevated Troponin Received IV Lasix 40 mg in ER Continue IV lasix 40mg BID and metoprolo Monitor I/O Sodium restriction Cardiology on board Echo pending 01/02 Continue to have SOB Lasix increased to 80mg BID IV Spironolactone increased to 25 mg daily monitor BMP Fluid restriction monitor I/O cardiology on board Plan for pharmacologic nuclear stress test tomorrow NPO after Midnight 01/05 Clinically improved Pharmacologic nuclear stress test done showed abnormal pharmacologic myocardial perfusion imaging study revealing a large sized fixed perfusion defect encompassing the inferior, inferolateral, and lateral ye extending from the basal segments to the apical segments with a large sized scar territory. Due to EF less than 35%, he is a candidate for AICD placement for prevention of sudden cardiac . Continue medical management for now as per cardiology Repeat Echo in 3 month to reevaluate the EF, if no improvement will need to get AICD placement For now order placed Zoll Life Vest for prevention of sudden cardiac in the meantime while reevaluate in 3 months with repeat ECHO D/C Lasix 80mg IV BID Torsemide decreased to 20 mg daily Will check BMP fri/ Follow up with cardiology Dr. Gallegos on 01/08 @ 8AM Follow up with the heart failure clinic in 1 week case discussed with cardiology Zoll Life vest was delivered today OK from cardiac standpoint to discharge home ECHO showed * Moderate concentric left ventricular hypertrophy is present in segments with relatively normal wall motion. * There is thinning of the inferior and inferolateral ye. * Septal motion is consistent with conduction abnormality. * There is a large sized apical inferior, inferior, and inferolateral wall motion abnormality with hypokinesis to akinesis of the segments. * The qualitative left ventricular ejection fraction =30-34%. * There is moderate mitral regurgitation. * Diastolic dysfunction, Grade II (pseudonormalization pattern). * There is trace tricuspid regurgitation. * Doppler findings do not suggest pulmonary hypertension. Elevated troponin Secondary to acute systolic CHF exacerbation Denies any chest pain EKG showed no ischemic changes continue monitor in tele Stable HISTORY OF [place] Elevated troponin due to CHF exacerbation EKG showed no acute ischemic changes Currently chest pain free Continue Asa and metoprolol HYPERTENSION BP in borderline low today Continue amlodipine and metoprolol succinate torsemide changed to 20mg daily HYPOKALEMIA Related to diuretic K replaced Continue potassium supplement Monitor BMP DM TYPE 2 Recent A1c 6.7 on 11/28/2016 No on any DM med Continue monitor BS DYSLIPIDEMIA Pt discontinued statin due to side effect of much ache GERD Continue PPI DVT PROPHYLAXIS Lovenox SQ CODE STATUS Full code DISPOSITION Discharge home Follow up with PCP Dr. Martin (Dr. Jamil colleague) on 01/09 @ 10:45 AM Follow up appointment with cardiology Dr. Gallegos on 01/08 @ 8AM Follow up with the Heart failure clinic in 1 week ( clinic will call you with the appointment) Check BMP on Friday to monitor renal function and electrolytes Consultants: Cardiology Current Inpatient Medications: Current Inpatient Medications Medications (Trade) Dose Ordered Sig/Shakira Route Start Time Stop Time Status Last Admin Dose Admin Enoxaparin Sodium (Lovenox Inj) 40 mg DAILY SC 01/01/17 09:00 01/31/17 08:59 01/05/17 07:58 40 MG Acetaminophen (Tylenol Tab) 650 mg Q4H PRN PO 12/31/16 20:00 01/30/17 19:59 Ondansetron HCl (Zofran Inj) 4 mg Q6H PRN IV 12/31/16 20:00 01/30/17 19:59 Nitroglycerin (Nitrostat Tab) 0.4 mg UD PRN SL 12/31/16 20:00 01/30/17 19:59 Morphine Sulfate (MoRPHine SULFATE INJ) 2 mg Q30M PRN IV 12/31/16 20:00 01/14/17 19:59 Polyethylene (Miralax Powder Packet) 17 gm DAILY PRN PO 12/31/16 20:00 01/30/17 19:59 Aspirin (Ecotrin Tab) 81 mg QAM PO 01/01/17 09:00 01/31/17 08:59 01/05/17 07:57 81 MG Albuterol/ Ipratropium (Combivent Respimat Inh) 1 puffs QID PRN INH 12/31/16 20:15 01/30/17 20:14 Metoprolol Succinate (Toprol Xl Tab) 25 mg DAILY PO 01/01/17 09:00 01/31/17 08:59 01/04/17 07:37 25 MG Sucralfate (Carafate Susp) 1 gm ACHS PO 12/31/16 21:00 01/30/17 20:59 01/05/17 11:38 1 GM Pantoprazole Sodium (Protonix Tab) 40 mg QAM PO 01/01/17 09:00 01/31/17 08:59 01/05/17 07:58 40 MG Spironolactone (Aldactone Tab) 25 mg QAM PO 01/03/17 09:00 02/02/17 08:59 01/05/17 07:56 25 MG Rosuvastatin Calcium (Crestor Tab) 5 mg QAM PO 01/03/17 09:00 02/02/17 08:59 01/05/17 07:57 5 MG Losartan Potassium (coZAAR TAB) 25 mg QAM PO 01/04/17 09:00 02/03/17 08:59 01/05/17 07:58 25 MG Torsemide (Demadex Tab) 20 mg DAILY PO 01/06/17 09:00 02/03/17 20:59
[2017-01-05] MEDS ORDERED: DMD20 PO (15:03)
[2017-01-05] MEDS ORDERED: CRS5 PO (15:03)
[2017-01-05] MEDS ORDERED: SPR25 PO (15:03)
[2017-01-05] MEDS ORDERED: CZR25 PO (15:03)
--- NOTE | 2017-01-05 15:08 | Discharge Instructions ---
Discharge Instructions Date of Service Jan 05, 2017. Admission Reason for Admission: CHF Discharge Discharge Diagnosis / Problem: ACUTE SYSTOLIC CHF EXACERBATION/Elevated troponin/Dyslipidemia/Hypokalemia Discharge Goals Goal(s): Decrease discomfort, Improve function, Improve disease control Activity Recommendations Activity Limitations: resume your previous activity (as tolerated) . Instructions / Follow-Up Instructions / Follow-Up Discharge home with the [facility] Vest Follow up with PCP Dr. Martin (Dr. Jamil colleague) on 01/09 @ 10:45 AM Follow up appointment with cardiology Dr. Gallegos on 01/08 @ 8 AM Follow up with the Heart failure clinic in 1 week ( clinic will call you with the appointment) Check BMP on Friday to monitor renal function and electrolytes Continue monitor blood pressure Current Hospital Diet Patient's current hospital diet: Low Sodium Diet (2gm Na), Diabetes Type 2 Diet Discharge Diet Recommended Diet: AHA Diet (Heart Healthy), Low Sodium Diet (2gm Na), Diabetes Type 2 Diet Pending Studies Studies pending at discharge: no Medical Emergencies . Who to Call and When: Medical Emergencies: If at any time you feel your situation is an emergency, please call 911 immediately. . Non-Emergent Contact Non-Emergency issues call your: Primary Care Provider Call Non-Emergent contact if: you have any medication questions . . "Provider Documentation" section prepared by Florentin Grant. . VTE Core Measure Inpt VTE Proph given/why not?: Enoxaparin (Lovenox)SQ
[2017-01-05] MEDS ORDERED: MCRK20 PO (15:13)
[2017-01-05 15:17] VITALS: BP 106/64; PULSE 73; TEMP 36.5; O2SAT 93
[2017-01-06] MEDS ORDERED: TORSEMIDE 20 MG TAB PO SCH (09:00)
--- NOTE | 2017-01-10 16:31 | Discharge Summary ---
Discharge Summary Date of Service Jan 10, 2017. Discharge Summary Admission Date: Dec 31, 2016 at 18:23 Discharge Date: Jan 05, 2017 Discharge Disposition: Home Principal Diagnosis: ACUTE SYSTOLIC CHF EXACERBATION Secondary Diagnoses/Problems: Elevated troponin Hx of NV Hypokalemia DM TYPE 2 Hypertension Dyslipidemia Procedures: Nuclear stress DATE OF PROCEDURE: 01/03/2017 INDICATION FOR PROCEDURE: Congestive heart failure, history of ischemic heart disease. PROVIDER REQUESTING TEST: Dr. Briggs. MARKETING WRITER: Dr. Briggs. PROCEDURE: After informed consent was obtained pharmacologic stress testing was performed with intravenous administration of 0.4 mg of Lexiscan over a 15 second IV infusion. The injection of Lexiscan was immediately followed by a 5 mL normal saline flush. The injection of saline was immediately followed by an injection of technetium-99m sestamibi and 5 mL saline flush. TECHNIQUE: For the stress portion of the study, 32.7 mCi of Technetium-99m Cardiolite IV was injected at 1315 on 01/03/2017. Thirty minutes following the injection, imaging of the heart was performed in multiple projections. For the rest portion of the study, 10.5 mCi of Technetium-99m Cardiolite was injected intravenously at 11:30 a.m. One hour following the injection, imaging of the heart was performed in the same projections. EXERCISE DATA: The resting heart rate of 75 beats per minute joslyn to a maximum heart rate of 93 beats per minute. This value represents 63% of the maximal age predicted heart rate. The resting blood pressure of 120/80 mmHg joslyn to a maximum blood pressure of 128 mmHg. The stress test was terminated due to the end of the pharmacologic protocol. EKG DATA: Baseline EKG revealed sinus rhythm at 64 beats per minute with left bundle branch block and resultant repolarization abnormalities. Occasional ventricular ectopy was noted on the resting EKG. The stress EKG was inconclusive for excluding ischemia due to the underlying left bundle branch block. Occasional isolated premature ventricular contractions were noted on the stress EKG and occasional ventricular couplets were also noted. The patient reported no symptoms with Lexiscan administration. FINDINGS: The overall quality of the study is good. The left ventricular cavity size was noted to be severely dilated on the stress and rest studies. There is no evidence of transient ischemic dilatation of the left ventricle. The right ventricle is not well visualized. Stress SPECT images reveal a large sized perfusion defect of severe intensity encompassing the inferior, inferolateral, and lateral myocardial ye. Resting SPECT images are unchanged revealing a fixed inferior, inferolateral, and lateral perfusion defect. Gated SPECT images reveal diffuse hypokinesis. The calculated left ventricular ejection fraction was 60%, but this was felt to be underestimated due to the significant lack of counts in the inferior and inferolateral segments, making this calculation technically inadequate. No qualitative assessment of ejection fraction can be made on this study due to the lack of counts in the inferior and inferolateral segments. FINAL IMPRESSION: 1. Abnormal pharmacologic myocardial perfusion imaging study revealing a large sized fixed perfusion defect encompassing the inferior, inferolateral, and lateral ye consistent with a large sized scar in this territory. The perfusion to the septal and anterior ye are normal and is spared. 2. Severe left ventricular chamber dilatation is noted. 3. The ejection fraction cannot adequately be assessed with this study due to the severe lack of counts in the inferior and inferior lateral ye. Dictated: 01/03/17 1427 Transcribed: 01/03/17 1444 <Electronically signed by Dylon Briggs D.O.> Signed: 01/03/17 1500 ES Dylon Briggs D.O. Consultations: Cardiology Medication Reconciliation New Medications: Potassium Chloride (Klor-Con M20) 20 Meq Tabcr 20 MEQ PO DAILY for 30 Days, #30 TAB Losartan Potassium (Losartan Potassium) 25 Mg Tab 25 MG PO QAM for 30 Days, #30 TAB Rosuvastatin Calcium (Crestor) 5 Mg Tab 5 MG PO QAM for 30 Days, #30 TAB Spironolactone (Spironolactone) 25 Mg Tab 25 MG PO QAM for 30 Days, #30 TAB Torsemide (Torsemide) 20 Mg Tab 20 MG PO DAILY for 30 Days, #30 TAB Continued Medications: Aspirin (Aspirin Ec) 81 Mg Tab 81 MG PO HS Ipratropium-Albuterol (Combivent Respimat) 1 Aer Aer 1 PUFFS INH QID PRN for Wheezing, INH Metoprolol Succinate (Toprol Xl) 25 Mg Tabcr 25 MG PO DAILY Omeprazole (Prilosec) 20 Mg Capcr 20 MG PO QAM Sildenafil Citrate (Viagra) 25 Mg Tab 25 MG PO PRN Sucralfate (Carafate) 1 Gm/10 Ml Susp 1 GM PO ACHS Discontinued Medications: Amlodipine (Norvasc) 2.5 Mg Tab 2.5 MG PO DAILY Furosemide (Lasix) 20 Mg Tab 20 MG PO DAILY Admission Information HPI (per Admitting provider): This is a 76 y/o male with history of silent NV in , LBBB, chronic systolic and diastolic CHF, dyslipidemia, DM type 2, and other problems listed below who presents to the ED with SOB. Onset of SOB was 6 months ago, then worsened over past 1 month and further worsened today. Previously was dyspneic on exertion only, but today was dyspneic at rest. Per his great niece, his O2 sat at home was in low 80's on home pulse oximeter. He does not use home O2. Dr. Briggs's office was called and patient was taken to ER, where he was also hypoxic to 81% on RA which improved to mid 90's on 4-5 liters via mask. Currently SOB is resolved. He reports associated nonproductive cough x 6 months. He reports burning pain across his chest, non-radiating, during episodes of SOB. No CP currently. He reports bilateral LE edema over past few days. Reports weight gain of 10 lb over past 2 months. He was having reflux and epigastric pain which improved with addition of omeprazole and Carafate. He denies fever, chills, diaphoresis, rhinorrhea, sore throat, orthopnea, increased abdominal girth, abdominal pain, N/V/D, dysuria, frequency, urgency. Pt was recently seen by Dr. Briggs on 12/25/2016 for acute systolic CHF, at which time HCTZ was discontinued, and patient was started on metoprolol succinate 25 mg daily and furosemide 20 mg daily. Pt is scheduled for outpatient stress test January 08. Patient stopped taking atorvastatin 3 weeks ago due to bilateral foot pain and muscle weakness. Last echo 12/04/2016- LBBB conduction pattern with ventricular ectopics was noted during imaging. There is an extensive area of hypokinesis to akinesis involving the entire inferior wall, entire posterior wall, and inferior apex. Calculated LV ejection Fraction = 45% (biplane method of discs). The left ventricular cavity size is moderately enlarged. Thinning of the inferior posterior wall. The left ventricular diastolic function is moderately abnormal ( grade II).The left atrium is mildly enlarged (3541ml/m^2). Physical Exam (per Admitting): General Appearance: WD/WN, no apparent distress, + pertinent finding ( pleasant alert 76 year old male, sitting in bedside chair, no distress, family at bedside) Head: normocephalic, atraumatic Eyes: normal inspection, sclerae normal ENT: hearing grossly normal, + pertinent finding (mask in place) Neck: supple, trachea midline Respiratory/Chest: normal breath sounds, no respiratory distress, no accessory muscle use, + pertinent finding (crackles bilateral bases) Cardiovascular: regular rate, rhythm, no murmur Abdomen/GI: normal bowel sounds, non tender, soft Extremities/Musculoskelatal: no calf tenderness, + pertinent finding (2+ pitting pretibial edema bilaterally ) Neurologic/Psych: alert, normal mood/affect, oriented x 3 Skin: normal color, warm/dry Hospital Course ACUTE SYSTOLIC CHF EXACERBATION Present with SOB and Hypoxia CXR on admission showed pulmonary edema with small bilateral pleural effusions Pro-BNP elevated to approx 4K Mild elevated Troponin Received IV Lasix 40 mg in ER Continue IV lasix 40mg BID and metoprolo Monitor I/O Sodium restriction Cardiology on board Echo pending 01/02 Continue to have SOB Lasix increased to 80mg BID IV Spironolactone increased to 25 mg daily monitor BMP Fluid restriction monitor I/O cardiology on board Plan for pharmacologic nuclear stress test tomorrow NPO after Midnight 01/05 Clinically improved Pharmacologic nuclear stress test done showed abnormal pharmacologic myocardial perfusion imaging study revealing a large sized fixed perfusion defect encompassing the inferior, inferolateral, and lateral ye extending from the basal segments to the apical segments with a large sized scar territory. Due to EF less than 35%, he is a candidate for AICD placement for prevention of sudden cardiac . Continue medical management for now as per cardiology Repeat Echo in 3 month to reevaluate the EF, if no improvement will need to get AICD placement For now order placed Zoll Life Vest for prevention of sudden cardiac in the meantime while reevaluate in 3 months with repeat ECHO D/C Lasix 80mg IV BID Torsemide decreased to 20 mg daily Will check BMP fri/ Follow up with cardiology Dr. Gallegos on 01/08 @ 8AM Follow up with the heart failure clinic in 1 week case discussed with cardiology Zoll Life vest was delivered today OK from cardiac standpoint to discharge home ECHO showed * Moderate concentric left ventricular hypertrophy is present in segments with relatively normal wall motion. * There is thinning of the inferior and inferolateral ye. * Septal motion is consistent with conduction abnormality. * There is a large sized apical inferior, inferior, and inferolateral wall motion abnormality with hypokinesis to akinesis of the segments. * The qualitative left ventricular ejection fraction =30-34%. * There is moderate mitral regurgitation. * Diastolic dysfunction, Grade II (pseudonormalization pattern). * There is trace tricuspid regurgitation. * Doppler findings do not suggest pulmonary hypertension. Elevated troponin Secondary to acute systolic CHF exacerbation Denies any chest pain EKG showed no ischemic changes continue monitor in tele Stable HISTORY OF NV Elevated troponin due to CHF exacerbation EKG showed no acute ischemic changes Currently chest pain free Continue Asa and metoprolol HYPERTENSION BP in borderline low today Continue amlodipine and metoprolol succinate torsemide changed to 20mg daily HYPOKALEMIA Related to diuretic K replaced Continue potassium supplement Monitor BMP DM TYPE 2 Recent A1c 6.7 on 11/28/2016 No on any DM med Continue monitor BS DYSLIPIDEMIA Pt discontinued statin due to side effect of much ache GERD Continue PPI DVT PROPHYLAXIS Lovenox SQ CODE STATUS Full code DISPOSITION Discharge home Follow up with PCP Dr. Martin (Dr. Jamil colleague) on 01/09 @ 10:45 AM Follow up appointment with cardiology Dr. Gallegos on 01/08 @ 8AM Follow up with the Heart failure clinic in 1 week ( clinic will call you with the appointment) Check BMP on Friday to monitor renal function and electrolytes Total time spent on discharge = 35 minutes This includes examination of the patient, discharge planning, medication reconciliation, and communication with other providers. Discharge Instructions Discharge Instructions Date of Service Jan 05, 2017. Admission Reason for Admission: CHF Discharge Discharge Diagnosis / Problem: ACUTE SYSTOLIC CHF EXACERBATION/Elevated troponin/Dyslipidemia/Hypokalemia Discharge Goals Goal(s): Decrease discomfort, Improve function, Improve disease control Activity Recommendations Activity Limitations: resume your previous activity (as tolerated) . Instructions / Follow-Up Instructions / Follow-Up Discharge home with the Zoll life Vest Follow up with PCP Dr. Martin (Dr. Jamil colleague) on 01/09 @ 10:45 AM Follow up appointment with cardiology Dr. Gallegos on 01/08 @ 8 AM Follow up with the Heart failure clinic in 1 week ( clinic will call you with the appointment) Check BMP on Friday to monitor renal function and electrolytes Continue monitor blood pressure Current Hospital Diet Patient's current hospital diet: Low Sodium Diet (2gm Na), Diabetes Type 2 Diet Discharge Diet Recommended Diet: AHA Diet (Heart Healthy), Low Sodium Diet (2gm Na), Diabetes Type 2 Diet Pending Studies Studies pending at discharge: no Medical Emergencies . Who to Call and When: Medical Emergencies: If at any time you feel your situation is an emergency, please call 911 immediately. . Non-Emergent Contact Non-Emergency issues call your: Primary Care Provider Call Non-Emergent contact if: you have any medication questions . . "Provider Documentation" section prepared by Florentin Grant. . VTE Core Measure Inpt VTE Proph given/why not?: Enoxaparin (Lovenox)SQ Additional Copies To Neftali Jamil M.D.(KAILEE)
== END 2017-01-05 15:41 | disposition home or self-care (01) | DRG 293 ==
LOC: C.EDB 16:15 → C.2T 18:23 → ENRESERV 18:44 → C.2T 01-01 19:46
PROVIDERS: ADMIT Hospitalist; ATTEND Internal Medicine
DX: I50.21 Acute systolic (congestive) heart failure (principal); E11.9 Type 2 diabetes mellitus without complications; I10 Essential (primary) hypertension; I73.9 Peripheral vascular disease, unspecified; I44.7 Left bundle-branch block, unspecified; E78.5 Hyperlipidemia, unspecified; K21.9 Gastro-esophageal reflux disease without esophagitis; E87.6 Hypokalemia; I25.2 Old myocardial infarction; Z79.82 Long term (current) use of aspirin; Z87.891 Personal history of nicotine dependence

== ENCOUNTER 2017-02-17 00:36 | Inpatient (IN) | payer OTHER ==
[2017-02-17] VITALS (38 sets, daily range): BP systolic 14–300; BP diastolic -50–300; PULSE 31–92; TEMP 32.4–36; O2SAT 35–100; Ht 182.9 cm; Wt 82.1 kg
[~2017-02-17] VITALS: Ht 182.9 cm; Wt 82.1 kg
[~2017-02-17 00:36] MED LIST: ASPI81TA28 PO; CRS5 PO; CZR25 PO; DMD20 PO; IPRA1AER2 INH; MCRK20 PO; METO25TA4 PO; PRLSR20 PO; SILD1TAB11 PO; SPR25 PO; SUCR5SUS PO
[2017-02-17] MEDS ORDERED: RAPID SEQUENCE INDUCTION BAG ONE (00:45)
[2017-02-17] MEDS ORDERED: AMIODARONE 360MG / 200ML D5W IV STA (01:08)
[2017-02-17] MEDS ORDERED: MIDAZOLAM HCL 5 MG/ML 1 ML VIAL IV STA (01:11)
[2017-02-17] MEDS ORDERED: MIDAZOLAM HCL 1 MG/ML 2ML VIAL ONE (01:13)
[2017-02-17] MEDS ORDERED: FENTANYL CITRATE INJ 50 MCG/1 ML 2 ML VIAL IV ONE (01:15)
[2017-02-17] MEDS ORDERED: SODIUM BICARB 8.4% INJ 50 MEQ/50 ML SYR IV STA (01:17)
[2017-02-17 01:23] LABS: ISTAT CREATININE 1.5 mg/dl (0.6-1.3); ISTAT IONIZED CALCIUM 1.12 mmol/l (1.12-1.32); ISTAT POTASSIUM 3.6 mEq/L (3.3-5.0)
[2017-02-17 01:32] LABS: PTT PATIENT 23.3 SECONDS (21.0-31.0)
[2017-02-17] MEDS ORDERED: NOREPINEPHRINE BIT INJ 8 MG in DEXTROSE 5% 500ML 500 ML IV STA (01:38)
[2017-02-17] MEDS ORDERED: TORS20TA2 PO (01:39)
[2017-02-17] MEDS ORDERED: SPIR25TA PO (01:40)
[2017-02-17] MEDS ORDERED: FUROSEMIDE 40 MG/4 ML VIAL IV STA (01:42)
[2017-02-17] MEDS ORDERED: LOSA1TAB PO (01:42)
[2017-02-17] MEDS ORDERED: IPRASOL4 INH (01:43)
[2017-02-17] MEDS ORDERED: OXGN (01:43)
[2017-02-17] MEDS ORDERED: FENTANYL CITRATE INJ 50 MCG/1 ML 2 ML VIAL IV STA (01:48)
[2017-02-17] MEDS ORDERED: MIDAZOLAM HCL 1 MG/ML 2ML VIAL IV STA (01:48)
[2017-02-17 01:50] LABS: ISTAT POTASSIUM 3.3 mEq/L (3.3-5.0); ISTAT SODIUM 139 mEq/L (135-144)
[2017-02-17] MEDS ORDERED: POTASSIUM CHLORIDE 20 MEQ/15 ML UDC PO STA (02:14)
[2017-02-17 02:19] LABS: BLOOD UREA NITROGEN 23 mg/dl (7-18); CREATININE 1.62 mg/dl (0.60-1.40); GLUCOSE 285 mg/dl (70-99)
[2017-02-17 02:20] LABS: CALCIUM 8.5 mg/dl (8.5-10.1); CARBON DIOXIDE 29 mmol/L (21-32); CKMB 2.2 ng/ml (0.5-3.6); SODIUM 139 mmol/L (136-145)
[2017-02-17 02:23] LABS: HEMATOCRIT 49.8 % (42-52); HEMOGLOBIN 16.4 g/dL (14.0-18.0); MEAN CELL VOLUME 100.6 fL (80-100); MEAN CORPUSCULAR HEMOGLOBIN 33.1 pg (25-34); MEAN CORPUSCULAR HGB CONC 32.9 g/dl (32-36); MEAN PLATELET VOLUME 12.8 fL (7.4-10.4); PLATELET COUNT 161 K/uL (130-400); RED CELL DISTRIBUTION WIDTH SD 54.6 fL (36.4-46.3); WHITE BLOOD COUNT 8.17 K/uL (4.8-10.8)
[2017-02-17] MEDS ORDERED: ACETAMINOPHEN 325 MG TAB PO PRN (02:30)
[2017-02-17] MEDS ORDERED: HEPARIN SOD 5000 UNIT/0.5 ML CARP SQ SCH (02:30)
[2017-02-17] MEDS ORDERED: ONDANSETRON INJ 2 MG/ML 2 ML VIAL IV PRN (02:30)
[2017-02-17] MEDS ORDERED: ICU PROTOCOL FOR HYPERGLYCEMIA PRN (02:30)
--- NOTE | 2017-02-17 02:35 | Critical Care Consultation ---
Critical Care Consultation Date of Consultation: Feb 17, 2017. Attending Physician: Medical Problems: Cardiac arrest Carotid stenosis, asymptomatic CHF (congestive heart failure) DM type 2 (diabetes mellitus, type 2) History of myocardial infarction HTN (hypertension) LBBB (left bundle branch block) Peripheral vascular disease Surgical Problems: H/O colonoscopy with polypectomy Reason for Consultation: Cardiac Arrest History of Present Illness Brent Marie is 76 male who was found face down in his room this evening after family heard a "thud". Patient had complained of some on again off again illness and chest pain for the last couple days. He had seen [facility] cardiology, Ariel Posey, and family noted some medication changes at that time. Per Mr. Bangura note, "he experienced discomfort in his upper abdomen that seem to radiate into his shoulder blades, aggravated by bending over. He notes heavy breathing the comes on with exertional activity such as carrying a laundry basket of clothes up from the basementthat is associated with palpitations , resolving after approximately 5 minutes of rest. NO discharge of the Zoll Life Vest. Nonproductive cough." Patient underwent a chest x-ray, was going to attempt to have oxygen set up while patient was local , started DuoNeb every 6 hours, losartan was moved from an AVM medication to p.m. and repeat resting echocardiogram scheduled for March. Patient reported feeling better the following day for his niece's college graduation. Then on Friday night patient experienced cardiac arrest and was initially unresponsive; however, he wears a Zoll life vest and was shocked and then aroused. EMT arrived to transport pt to [facility]. Pt again went unresponsive and was shocked on entering the hospital and again in the ED. Andrea conte was called pt was intubated with a 7.5 ET tube 23cm to the lip using 20 of etomidate and 150 of succinylcholine, tube was later withdrawn to 25cm at the lip. Code included multiple different cardiac arrhythmias. Accesses failed and a right tibial IO was placed. Patient was obtunded patient underwent CPR, lidocaine, appendectomy. Received mag for noted for solids. PEEP was initially increased to 15 days on evidence of pulmonary edema. Multiple rounds of appendectomy patient obtained ROSC. Dr. Greenberg spoke with Dr. Haque they decided to initiate the Code Arctic ECHO on 01/04/2017 demonstrating moderate concentric left ventricular hypertrophy with relatively normal wall motion, thinning of the inferior inferolateral lateral ye, septal motion was consistent with conduction abnormality, there was large size apical inferior, inferior, and inferior lateral wall motion abnormality with hypokinesis to akinesis of the segments. The left ventricular ejection fraction was determined to be 30-34%. Moderate mitral regurgitation was noted with diastolic dysfunction grade 2, trace tricuspid regurg. Doppler did not suggest pulmonary hypertension. Patient was sent to CT for scanning of his head and chest. I was called about free air in the thorax and thus added a abdomen and pelvis scan as well. Please see radiology notes below for remaining findings. Patient entered ICU a right central venous catheter was inserted into his internal jugular without complication. A right radial arterial line was inserted for continuous monitoring of blood pressures while on multiple vasopressors. Dr. Haque arrived to insert a right chest tube to drain the pneumothorax. Please see alternate documentation for each of those procedures. Dr. Greenfield arrived a second time to see pt and asked that pt be place on low dose heparin without bolus and was agreeable to switching the Levophed infusion for Dobutamine. ROS could not be obtained secondary to sedation, condition, and intubation. Past Medical/Surgical History Medical Problems: Cardiac arrest Carotid stenosis, asymptomatic CHF (congestive heart failure) DM type 2 (diabetes mellitus, type 2) History of myocardial infarction HTN (hypertension) LBBB (left bundle branch block) Peripheral vascular disease Surgical Problems: H/O colonoscopy with polypectomy Family History FH: CAD (coronary artery disease) FATHER ( of [place] early 60's) Social History Smoking Status: Former Smoker Occupation Status: retired Allergies Coded Allergies: Lisinopril (Unverified Adverse Reaction, Intermediate, HIGH POTASSIUM LEVELS, 02/17/17) Atorvastatin (Verified Adverse Reaction, Unknown, muscle weakness in legs , 02/17/17) Home Medications Scheduled Aspirin (Aspirin Ec), 81 MG PO HS Home O2 Therapy (Oxygen), 2 LITERS NA HS Ipratropium-Albuterol (Duoneb), 1 TREATMENT INH TID Losartan Potassium (Cozaar), 25 MG PO QPM Metoprolol Succinate (Toprol Xl), 25 MG PO QAM Rosuvastatin Calcium (Crestor), 5 MG PO QAM Spironolactone (Aldactone), 25 MG PO QAM Torsemide (Demadex), 20 MG PO QAM Scheduled PRN Ipratropium-Albuterol (Combivent Respimat), 1 PUFFS INH QID PRN for Wheezing Omeprazole (Prilosec), 20 MG PO QAM PRN for Heartburn Sildenafil Citrate (Viagra), 25 MG PO UD PRN for intercourse Sucralfate (Carafate), 1 GM PO ACHS PRN for Heartburn Current Inpatient Medications Current Inpatient Medications Medications (Trade) Dose Ordered Sig/Shakira Route Start Time Stop Time Status Last Admin Dose Admin Midazolam HCl 250 ml @ 0 mls/hr Q0M PRN IV 02/17/17 02:14 03/19/17 02:13 Fentanyl Citrate 250 ml @ 0 mls/hr Q0M PRN IV 02/17/17 02:14 03/03/17 02:13 Review of Systems ROS could not be obtained secondary to pt condition and intubation. Physical Exam Date Time Temp Pulse Resp B/P (MAP) Pulse Ox O2 Delivery O2 Flow Rate FiO2 02/17/17 02:05 100 02/17/17 01:41 120 101/55 02/17/17 01:40 20 02/17/17 01:39 96/60 02/17/17 01:37 102/62 02/17/17 01:35 118 100/51 98 02/17/17 01:33 88/52 02/17/17 01:31 02/17/17 01:30 75 18 95 02/17/17 01:30 127 02/17/17 01:29 110/65 02/17/17 01:26 81/50 02/17/17 01:25 52 21 95 02/17/17 01:20 36.7 02/17/17 01:20 82 18 84 02/17/17 01:19 84/63 02/17/17 01:17 102/70 02/17/17 01:15 111 19 83/65 94 02/17/17 01:13 28 02/17/17 01:13 58 02/17/17 01:13 94/58 02/17/17 01:10 87/58 02/17/17 01:07 93/58 02/17/17 01:06 112/67 02/17/17 01:05 59 26 02/17/17 01:01 65 02/17/17 01:00 72 15 115/67 02/17/17 00:57 59/33 02/17/17 00:52 68 02/17/17 00:50 43 02/17/17 00:49 41 02/17/17 00:48 88 02/17/17 00:43 225 Vital Signs - as noted Laboratory Data - as noted Physical Exam: General - Intubated Eyes - PE pinpoint and unresponsive, No icterus, gaze conjugate ENT - Mucosa moist, ET 7.5 23cm @ lip in place with OG tube Neck - Supple, trachea midline, no masses or lymphadenopathy, no JVD or bruits Lungs - No paradoxical chest wall movement, diminished to auscultation bilaterally, with expiratory wheezes, no rales, or rhonchi Heart - Reg rate and rhythm, No murmur, rubs, clicks, or gallops appreciated Abdomen - BS absent, no bruits noted, tympanic to percussion, soft,moderately distended, no organomegaly Extremities - No edema, pedal pulses intact Neuro - [place] Coma 3 Strength Not assessed Reflexes: [normal and equal] CN:PE, no facial asymmetry, uvula/tongue midline during intubation Laboratory Results Last 24 Hours Test 02/17/17 01:08 02/17/17 01:10 02/17/17 01:19 02/17/17 02:15 White Blood Count 8.17 K/uL Red Blood Count 4.95 M/uL Hemoglobin 16.4 g/dL Hematocrit 49.8 % Mean Corpuscular Volume 100.6 fL Mean Corpuscular Hemoglobin 33.1 pg Mean Corpuscular Hemoglobin Concent 32.9 g/dl Platelet Count 161 K/uL Mean Platelet Volume 12.8 fL RDW Standard Deviation 54.6 fL RDW Coefficient of Variation 15.0 % Nucleated RBC Absolute Count (auto) 0.10 K/uL Nucleated Red Blood Cells % 1.2 % Prothrombin Time 10.7 SECONDS Prothromb Time International Ratio 1.0 Activated Partial Thromboplast Time 23.3 SECONDS Partial Thromboplastin Ratio 0.9 Sodium Level 139 mmol/L Potassium Level mmol/L Chloride Level 101 mmol/L Carbon Dioxide Level 29 mmol/L Anion Gap 9.0 mmol/L 14.0 mmol/L Blood Urea Nitrogen 23 mg/dl Creatinine 1.62 mg/dl Est Creatinine Clear Calc Drug Dose 43.9 ml/min Estimated GFR () 47.7 Estimated GFR (Non- 41.2 BUN/Creatinine Ratio 14.0 Random Glucose 285 mg/dl Calcium Level 8.5 mg/dl Magnesium Level mg/dl Total Creatine Kinase U/L Creatine Kinase MB 2.2 ng/ml Creatine Kinase MB Ratio Troponin I 0.407 ng/ml Bedside Hemoglobin 16.3 g/dl 15.0 g/dl Bedside Hematocrit 48 % 44 % Bedside Sodium 140 mEq/L 139 mEq/L Bedside Potassium 3.6 mEq/L 3.3 mEq/L Bedside Chloride 101 mEq/L Bedside Total CO2 30 mEq/l Bedside Blood Urea Nitrogen 30 mg/dl Bedside Creatinine 1.5 mg/dl Bedside Glucose (other) 279 mg/dl Bedside Ionized Calcium ([place]) 1.12 mmol/l Bedside Blood Gas pH (LAB) 6.86 Bedside Blood Gas pCO2 (LAB) > 115 mmHg Bedside Blood Gas pO2 (LAB) 133 mmHg Bedside Blood Gas HCO3 (LAB) 23 meq/L Bedside Blood Gas Total CO2 27 mEq/l Bedside Blood Gas Base Excess (LAB) -11.0 meq/L Bedside Blood Gas O2 Saturation 95.0 % Diagnostic Results Head CT 02/17/2017 * No evidence of anoxic brain injury or acute transcortical infarct. No intracranial hemorrhage or mass effect. No hydrocephalus. Chest CT 02/17/2017 * 1. Small right pneumothorax and extensive soft tissue air in the right chest wall. Right anterior lateral fourth, fifth, sixth, seventh rib acute fractures without displacement. Acute for fracture left anterior third rib, mildly displaced additional non-place a left sided rib fractures. Small right hemothorax. Contusions, atelectasis, and/or air space disease dependently right greater than left lungs. Internal global septal thickening and lung apices, suggesting possible component of CHS\\fluid overload. * 2. Endotracheal tube terminates at the right mainstem bronchus, advanced from prior chest x-ray. * 3. NG tube tip in stomach but sidehole in distal esophagus comment: No lymphadenopathy no aortic aneurysm. Atherosclerotic calcifications including coronary artery calcifications. Mild enlargement of the heart. Abdomen CT * Normal. Appendix visualized. Duodenal diverticulum. Diffuse colonic diverticulosis without diverticulitis. Small bowel loops appear unremarkable. No pneumatosis or pneumoperitoneum. Weiss catheter to decompress his urinary bladder. Intravascular gas visualized within bilateral common femoral veins, most likely related to injection or attempted line placement atherosclerotic calcifications of aorta and its branches. Assessment & Plan PLAN: CV: * Initiate Code Arctic Protocol per Dr. Haque * Trend troponin, PRP, Electrolytes, Coags per q4h. * Obtain ECHO this admission s/p arrest * Cardiology following * Continue Amiodarone Titration * Low Dose Heparin Drip per Dr. Greenfield * Titrate down Levophed as tolerated. * Use primarily Dobutamine for Inotrope support. * Monitor on telemetry Fluids/Renal: * ROBERTO: However can not justify increased fluid resuscitation secondary to reduced EF and Diastolic HF * Continue to trend PRP: Last Cr 1.5; Am Labs pending * Large amounts of fluid with insulin, heparin, vasopressors, and sedative infusion * Weiss to gravity; Strict I&Os * Monitor electrolytes and replete carefully. 60 PO KCl. * Last K 3.6, Mg 3.4 * CPK: WNL 125 Neuro: * Continue sedative infusions: Versed and Fentanyl to RASS -2 * Monitor for unilateral neurological changes * Initiate Continuous EEG with Dr. Carter * Consult placed with Dr. Chun for Neuro Resp: * Intubated in ED: Settings now AC 18/550/5/60% 7.5 ET Tube withdrawn to 25cm @ the lip * Chest Tube placed by Dr. Haque for known pneumothorax and hemithorax s/p CPR * See Stat rad read * ABGs q4h or with changes * Monitor on telemetry * Follow End Tidal CO2 ID: * Obtain Procalcitonin * Leukocytosis, Pt being cooled. Will need to monitor for rebound hyperthermia on warming * Abx per Dr. Haque * Lactic Acid 5.9, likely secondary to arrest. Trend GI/Nutrition: * OG tube should be advanced * NPO except meds * Check Albumin; however acute phase reactant * GI Prophylaxis in place Heme: * Pt to be started on heparin infusion. Code Emily prone to bleeding. * H&H 15.0/44; plts: 161 * Trend Anticoags q4h per protocol Endocrine: * Pt started on insulin infusion per hospital policy. * TSH pending * DM A1c 7.0 outpt, no known insulin or diabetic medications. Repeat A1C; consider clinical educator once A&O CCT: 90 Minutes; This time is exclusive of all separately billable procedures. Thank you for involving us in the care of this patient. Please refer to Dr. Geoffrey Haque's addendum for further recommendations. I have personally evaluated and examined this patient. I agree with assessment and plan of Fatuma Rajan PA-C. I had a discussion with the patient's brother, niece who is a nurse as well as nephew. The patient does not have a designated healthcare power of insurance defense attorney. His medical decision makers would revert to his brother and a sister who lives in [place]. I had an extensive discussion about the current state the patient was in, cardiogenic shock, acute kidney injury, acute respiratory failure with multiple rib fractures secondary to CPR. They stated the patient had expressed his desires to never be placed into a skilled nursing and independent living was a major goal in his life. Given the current physiologic insults and his minimal chance of a acceptable quality of life, should he have another cardiac arrest and be successfully resuscitated, all were in agreement that the patient would not want to undergo CPR in event of a subsequent cardiopulmonary arrest. The patient's brother has consented to central line, arterial line, bronchoscopy, chest tube placement, and blood transfusion should the patient need these in the future. I spent an additional 85 minutes of critical care time with the patient that is exclusive of and in addition to the previously listed critical care time. Time in 0500, time out 0530, chest tube placement time excluded, time in 0600 time out 0655.
[2017-02-17 02:38] LABS: POTASSIUM 3.6 mmol/L (3.5-5.1)
--- NOTE | 2017-02-17 02:39 | History and Physical ---
History & Physical Date & Time of Service: Feb 17, 2017 at 02:38 Chief Complaint: Chest Discomfort Primary Care Physician: Neftali Jamil M.D.(KAILEE) History of Present Illness Source: family, hospital records, EMS Patient is a 76 yr male with PMH of silent ND in , LBBB, chronic systolic and diastolic CHF, dyslipidemia, DM II, and other problems who was discharged from [facility] in Dec 2016 after being treated for CHF exacerbation presents with history of being found unconscious on floor face down as per the family. History is limited as patient is currently sedated, intubated and hypothermia protocol secondary to cardiac arrest from Ventricular arrhythmias. Patient's family reports that patient has been complained of not feeling well since last 2 days. Patient was evaluated by Ariel MUNIZ on 02/14/17 and was made aware having trouble to get his supplemental oxygen and reported some upper abdomen discomfort associated with SOB on exertion& non productive cough. He was started on Duonebs PRN and the patient was told that he might need pacemaker /defibrillator. Family reports that he is currently on Life Vest and noticed that it shocked once while at home and twice while in ED. Patient initially awoke and was conversive after initial shock at home but became unconscious again in ED. Andrea conte was called and ER physician reported that patient went into Ventricular arrhythmias and was intubated, later started on Hypothermia protocol, amiodarone and pressors. CT head showed no acute intracranial abnormality. Patient had pneumothorax and chest tube was placed. Past Medical/Surgical History Medical Problems: (1) Carotid stenosis, asymptomatic Status: Chronic (2) CHF (congestive heart failure) Permanent Comment: echo 12/04/2016- EF 45%, grade II diastolic dysfunction Status: Chronic (3) DM type 2 (diabetes mellitus, type 2) Status: Chronic (4) History of myocardial infarction Permanent Comment: silent ND in Status: Chronic (5) HTN (hypertension) Status: Chronic (6) LBBB (left bundle branch block) Status: Chronic (7) Peripheral vascular disease Status: Chronic Surgical Problems: (1) H/O colonoscopy with polypectomy Status: Chronic Family History FH: CAD (coronary artery disease) FATHER ( of [place] early 60's) Social History Smoking Status: Former Smoker Alcohol Use: socially Drug Use: none Occupational Status: retired Multi-Drug Resistant Organisms History of MDRO: No Allergies Coded Allergies: Lisinopril (Unverified Adverse Reaction, Intermediate, HIGH POTASSIUM LEVELS, 02/17/17) Atorvastatin (Verified Adverse Reaction, Unknown, muscle weakness in legs , 02/17/17) Home Medications Scheduled Aspirin (Aspirin Ec), 81 MG PO HS Home O2 Therapy (Oxygen), 2 LITERS NA HS Ipratropium-Albuterol (Duoneb), 1 TREATMENT INH TID Losartan Potassium (Cozaar), 25 MG PO QPM Metoprolol Succinate (Toprol Xl), 25 MG PO QAM Rosuvastatin Calcium (Crestor), 5 MG PO QAM Spironolactone (Aldactone), 25 MG PO QAM Torsemide (Demadex), 20 MG PO QAM Scheduled PRN Ipratropium-Albuterol (Combivent Respimat), 1 PUFFS INH QID PRN for Wheezing Omeprazole (Prilosec), 20 MG PO QAM PRN for Heartburn Sildenafil Citrate (Viagra), 25 MG PO UD PRN for intercourse Sucralfate (Carafate), 1 GM PO ACHS PRN for Heartburn Review of Systems could not be obtained Physical Exam Vital Signs Date Time Temp Pulse Resp B/P (MAP) Pulse Ox O2 Delivery O2 Flow Rate FiO2 02/17/17 02:05 100 02/17/17 01:41 120 101/55 02/17/17 01:40 20 02/17/17 01:39 96/60 02/17/17 01:37 102/62 02/17/17 01:35 118 100/51 98 02/17/17 01:33 88/52 02/17/17 01:31 02/17/17 01:30 75 18 95 02/17/17 01:30 127 02/17/17 01:29 110/65 02/17/17 01:26 81/50 02/17/17 01:25 52 21 95 02/17/17 01:20 36.7 02/17/17 01:20 82 18 84 02/17/17 01:19 84/63 02/17/17 01:17 102/70 02/17/17 01:15 111 19 83/65 94 02/17/17 01:13 28 02/17/17 01:13 58 02/17/17 01:13 94/58 02/17/17 01:10 87/58 02/17/17 01:07 93/58 02/17/17 01:06 112/67 02/17/17 01:05 59 26 02/17/17 01:01 65 02/17/17 01:00 72 15 115/67 02/17/17 00:57 59/33 02/17/17 00:52 68 02/17/17 00:50 43 02/17/17 00:49 41 02/17/17 00:48 88 02/17/17 00:43 225 General Appearance: WD/WN, no apparent distress, + pertinent finding (Sedated and Intubated, cyanotic ) Head: normocephalic, atraumatic Eyes: normal inspection, PERRL, sclerae normal ENT: normal ENT inspection Neck: supple, trachea midline Respiratory/Chest: no accessory muscle use, + decreased breath sounds, + crackles Cardiovascular: regular rate, rhythm, no murmur, + pertinent finding (Trace edema ) Abdomen/GI: normal bowel sounds, non tender, soft Back: normal inspection Extremities/Musculoskelatal: normal inspection, + pertinent finding (Trace pedal edema ) Neurologic/Psych: + pertinent finding Skin: + cyanosis, + pertinent finding (On hypothermia protocol) Diagnostics Laboratory Results Results Past 24 Hours Test 02/17/17 01:08 02/17/17 01:10 02/17/17 01:19 02/17/17 02:15 Range/Units White Blood Count 8.17 4.8-10.8 K/uL Red Blood Count 4.95 4.7-6.1 M/uL Hemoglobin 16.4 14.0-18.0 g/dL Hematocrit 49.8 42-52 % Mean Corpuscular Volume 100.6 80-100 fL Mean Corpuscular Hemoglobin 33.1 25-34 pg Mean Corpuscular Hemoglobin Concent 32.9 32-36 g/dl Platelet Count 161 130-400 K/uL Mean Platelet Volume 12.8 7.4-10.4 fL RDW Standard Deviation 54.6 36.4-46.3 fL RDW Coefficient of Variation 15.0 11.5-14.5 % Nucleated RBC Absolute Count (auto) 0.10 0-0 K/uL Neutrophils % (Manual) 12.6 % Lymphocytes % (Manual) 46.0 % Monocytes % (Manual) 8.1 % Nucleated Red Blood Cells % 1.2 % Neutrophils # (Manual) 1.03 1.4-6.5 K/uL Total Absolute Neutrophils 1.03 1.4-6.5 K/uL Lymphocytes # (Manual) 3.76 1.2-3.4 K/uL Total Absolute Lymphocytes 6.48 1.2-3.4 K/uL Monocytes # (Manual) 0.66 0.11-0.59 K/uL Percent Large Granular Lymphocytes 33.3 % Absolute Large Granular Lymphocytes 2.72 K/uL Platelet Estimate DECREASED Red Blood Cell Morphology Unremarkable Prothrombin Time 10.7 9.0-12.0 SECONDS Prothromb Time International Ratio 1.0 0.9-1.1 Activated Partial Thromboplast Time 23.3 21.0-31.0 SECONDS Partial Thromboplastin Ratio 0.9 Sodium Level 139 136-145 mmol/L Potassium Level 3.6 3.5-5.1 mmol/L Chloride Level 101 98-107 mmol/L Carbon Dioxide Level 29 21-32 mmol/L Anion Gap 9.0 14.0 16-25 mmol/L Blood Urea Nitrogen 23 7-18 mg/dl Creatinine 1.62 0.60-1.40 mg/dl Est Creatinine Clear Calc Drug Dose 43.9 ml/min Estimated GFR () 47.7 Estimated GFR (Non- 41.2 BUN/Creatinine Ratio 14.0 10-20 Random Glucose 285 70-99 mg/dl Calcium Level 8.5 8.5-10.1 mg/dl Magnesium Level 1.8-2.4 mg/dl Total Creatine Kinase 39-308 U/L Creatine Kinase MB 2.2 0.5-3.6 ng/ml Creatine Kinase MB Ratio 0-3.0 Troponin I 0.407 0-0.045 ng/ml Bedside Hemoglobin 16.3 15.0 14.0-18.0 g/dl Bedside Hematocrit 48 44 42-52 % Bedside Sodium 140 139 135-144 mEq/L Bedside Potassium 3.6 3.3 3.3-5.0 mEq/L Bedside Chloride 101 101-112 mEq/L Bedside Total CO2 30 24-31 mEq/l Bedside Blood Urea Nitrogen 30 7-18 mg/dl Bedside Creatinine 1.5 0.6-1.3 mg/dl Bedside Glucose (other) 279 70-99 mg/dl Bedside Ionized Calcium ([place]) 1.12 1.12-1.32 mmol/l Bedside Blood Gas pH (LAB) 6.86 7.35-7.45 Bedside Blood Gas pCO2 (LAB) > 115 35-46 mmHg Bedside Blood Gas pO2 (LAB) 133 80-95 mmHg Bedside Blood Gas HCO3 (LAB) 23 19-24 meq/L Bedside Blood Gas Total CO2 27 24-31 mEq/l Bedside Blood Gas Base Excess (LAB) -11.0 -9-1.8 meq/L Bedside Blood Gas O2 Saturation 95.0 90-95 % Diagnostic Radiology CT head: No acute intracranial abnormality. CXR: 1. Extensive right-sided subcutaneous emphysema. 2. Small right and to lesser extent left pleural effusions with superimposed basilar atelectasis. 3. Small right-sided pneumothorax with maximal pleural separation of 1.4 cm. 4. Endotracheal tube origin right main stem bronchus. This should be pulled back several centimeters. 5. Nasogastric tube at or slightly distal to the gastroesophageal junction. 6. Several nondisplaced bilateral rib fractures. 7. Components of congestive heart failure CT ABD: pending EKG ECG: Afib RVR, T wave changes Impression Assessment and Plan Cardiac Arrest: Likely secondary to Ventricular Arrhythmias CHO CHF systolic and diastolic CHF on Live Vest EF: 30 % H/O ND S/P Intubation Continue Amiodarone, Heparin ggt Hypothermia Protocol Vent management per ICU team Cardiology, Park Interpreter consulted Currently on pressors EEG ordered CT head: No acute intracranial abnormality Neurology consulted Family aware of patient's condition ROBERTO: Cr:1.62 Baseline Cr:1.07 IVF management would be difficult given severe CHF Monitor renal function Pneumothorax: H/O COPD Chest tube placed Currently intubated Duonebs PRN Elevated Lactate levels: Abx per ICU team DM II: ISS, accu checks DVT/GI Px: on Heparin ggt Pepcid Code Status: Full Code Disposition: Admit in ICU To be determined. VTE Prophylaxis VTE Risk Assessment Done? Y/N: Yes Risk Level: Moderate
[2017-02-17] MEDS ORDERED: MEPERIDINE HCL 25 MG/ML CARP IV PRN (03:15)
[2017-02-17] MEDS ORDERED: ARTIFICIAL TEARS OP OINT 3.5 GM TUBE OPB PRN (03:15)
[2017-02-17] MEDS ORDERED: BusPIRone 15 MG TAB NG PRN (03:15)
[2017-02-17] MEDS ORDERED: DOBUTamine / D5W 500 MG IV PRN (03:16)
[2017-02-17] MEDS ORDERED: INSULIN IV INFUSION PROTOCOL STA (03:16)
[2017-02-17] MEDS ORDERED: SEVERE STRESS LEVEL ONE (03:30)
[2017-02-17] MEDS ORDERED: INSULIN PROTOCOL GOAL RANGE ONE (03:30)
[2017-02-17] MEDS: FENTANYL 1250MCG/250ML NSS 250 ML IV PRN ×3 (04:17→19:18)
[2017-02-17] MEDS: MIDAZOLAM 125MG/250ML D5W 250 ML IV PRN ×2 (04:18→16:20)
[2017-02-17] MEDS ORDERED: NovoLIN R BOLUS FROM BAG IV ONE (04:45)
[2017-02-17] MEDS: INSULIN REGULAR 250 UNITS in SODIUM CHLORIDE 0.9% 250ML 250 ML IV SCH ×2 (04:53→05:23)
--- NOTE | 2017-02-17 05:09 | EMERGENCY ROOM VISIT NOTE ---
History Report prepared by Shai: Drew Ortiz Under the Supervision of: Dr. Jb Ocasio M.D. First contact with patient: 00:44 Chief Complaint: CARDIAC ARREST Stated Complaint: CHEST DISCOMFORT History of Present Illness The patient is a 76 year old male who presents to the Emergency Room with complaints of constant chest discomfort starting earlier in the day. The patient has not been feeling well for the past two days with a mild cough and was seen at his PCP. He was short of breath at the time, but he was sent home, and he was then having continued weakness and reflux pain. The family notes that the patient, did not look well, his short of breath was worse, and the patient was starting to get shocked by his defibrillator. The patient was brought to the ED for emergent evaluation. Source of History: family History Limited By: other (extremis) Onset: ealrier today Position: chest Timing: constant Associated Symptoms: + SOB, + weakness Review of Systems History limited secondary to extremis. Past Medical & Surgical Medical Problems: (1) Cardiac arrest (2) Carotid stenosis, asymptomatic (3) CHF (congestive heart failure) (4) DM type 2 (diabetes mellitus, type 2) (5) History of myocardial infarction (6) HTN (hypertension) (7) LBBB (left bundle branch block) (8) Peripheral vascular disease Surgical Problems: (1) H/O colonoscopy with polypectomy Family History FH: CAD (coronary artery disease) FATHER ( of [place] early 60's) Social History Smoking Status: Former Smoker Marital Status: single Housing Status: lives alone Occupation Status: retired Current/Historical Medications Scheduled Aspirin (Aspirin Ec), 81 MG PO HS Home O2 Therapy (Oxygen), 2 LITERS NA HS Ipratropium-Albuterol (Duoneb), 1 TREATMENT INH TID Losartan Potassium (Cozaar), 25 MG PO QPM Metoprolol Succinate (Toprol Xl), 25 MG PO QAM Rosuvastatin Calcium (Crestor), 5 MG PO QAM Spironolactone (Aldactone), 25 MG PO QAM Torsemide (Demadex), 20 MG PO QAM Scheduled PRN Ipratropium-Albuterol (Combivent Respimat), 1 PUFFS INH QID PRN for Wheezing Omeprazole (Prilosec), 20 MG PO QAM PRN for Heartburn Sildenafil Citrate (Viagra), 25 MG PO UD PRN for intercourse Sucralfate (Carafate), 1 GM PO ACHS PRN for Heartburn Allergies Coded Allergies: Lisinopril (Unverified Adverse Reaction, Intermediate, HIGH POTASSIUM LEVELS, 02/17/17) Atorvastatin (Verified Adverse Reaction, Unknown, muscle weakness in legs , 02/17/17) Physical Exam Vital Signs Date Time Temp Pulse Resp B/P (MAP) Pulse Ox O2 Delivery O2 Flow Rate FiO2 02/17/17 02:31 101/72 02/17/17 02:26 86 18 102/70 97 02/17/17 02:21 88/57 02/17/17 02:19 102/67 02/17/17 02:17 86/67 02/17/17 02:16 80 18 97 02/17/17 02:15 86/66 02/17/17 02:13 99/71 02/17/17 02:11 91/70 02/17/17 02:09 93/70 02/17/17 02:07 114/61 02/17/17 02:06 92 02/17/17 02:05 100 02/17/17 02:05 117/75 02/17/17 02:02 89/42 02/17/17 01:59 115/70 02/17/17 01:57 113/61 02/17/17 01:56 138 02/17/17 01:55 104/84 02/17/17 01:53 81/56 02/17/17 01:51 98/68 02/17/17 01:49 94/63 02/17/17 01:47 111/62 02/17/17 01:46 104 20 02/17/17 01:41 120 101/55 02/17/17 01:40 20 02/17/17 01:39 96/60 02/17/17 01:37 102/62 02/17/17 01:35 118 100/51 98 02/17/17 01:33 88/52 02/17/17 01:31 02/17/17 01:30 75 18 95 02/17/17 01:30 127 02/17/17 01:29 110/65 02/17/17 01:26 81/50 02/17/17 01:25 52 21 95 02/17/17 01:20 36.7 02/17/17 01:20 82 18 84 02/17/17 01:19 84/63 02/17/17 01:17 102/70 02/17/17 01:15 111 19 83/65 94 02/17/17 01:13 28 02/17/17 01:13 58 02/17/17 01:13 94/58 02/17/17 01:10 87/58 02/17/17 01:07 93/58 02/17/17 01:06 112/67 02/17/17 01:05 59 26 02/17/17 01:01 65 02/17/17 01:00 72 15 115/67 02/17/17 00:57 59/33 02/17/17 00:52 68 02/17/17 00:50 43 02/17/17 00:49 41 02/17/17 00:48 88 02/17/17 00:43 225 Physical Exam GENERAL: Patient is in extremis. Severely ill appearing and significantly cyanotic. HEENT: Glazed eyes. No acute trauma, normocephalic atraumatic, mucous membranes moist, no nasal congestion, no scleral icterus. NECK: No stridor, no adenopathy, no meningismus, trachea is midline. LUNGS: Dyspneic, tachypneic, and unable to speak with diffuse crackles and distant lung sounds. HEART: The patient has an external defibrillator, and he is tachycardic but irregular. ABDOMEN: Soft, nontender, bowel sounds positive, no masses appreciated, no peritonitis. BACK: No midline tenderness, no CVA tenderness EXTREMITIES: Faint pulses in the extremities which he is moving weakly. NEUROLOGIC: Awake, but confused. SKIN: No rash, no jaundice, no diaphoresis. Medical Decision & Procedures ER Provider Diagnostic Interpretation: X ray results are stated below per my interpretation and the radiologist's interpretation. One View Chest: ET Tube mildly deep. Bilateral pulmonary edema. Possible trace pneumothorax. Midline trachea. Radiology results and stated below per my review and radiologist interpretation: CT HEAD: No evidence of anoxic brain injury or acute transcortical infarct. No intracranial hemorrhage or mass effect. No hydrocephalus. Radiologist: Jb Aviles MD CT CHEST Without Contrast: Comparison: CXR earlier same day Impression: 1. Small right pneumothorax and extensive soft tissue air in right chest wall. Right anterolateral fourth, fifth, sixth, seventh rib acute fractures without displacement. Acute for fracture left anterior third rib, mildly displaced Additional nondisplaced left-sided rib fractures. Small right hemothorax. Contusions, atelectasis, and/or airspace disease dependently right greater than left lungs. Interlobar septal thickening and lung apices, suggesting possible component of CHF/fluid overload. 2. Endotracheal tube terminates at the right mainstem bronchus, advanced from prior CXR. 3. NG tube tip in stomach but sidehole in distal esophagus. Comment: No lymphadenopathy No aortic aneurysm. Atherosclerotic calcifications including coronary artery calcifications. Mild enlargement of the heart Radiologist: Jb Aviles MD CT ABDOMEN & PELVIS Without Contrast: Please see CT chest for chest findings including multiple rib fractures and right pneumothorax. NG tube tip in stomach but sidehole in distal esophagus. Normal appendix visualized. Duodenal diverticulum. Diffuse colonic diverticulosis without diverticulitis. Small bowel loops appear unremarkable. No pneumatosis or pneumoperitoneum. Weiss catheter decompresses urinary bladder. Intravascular gas visualized within bilateral common femoral veins, most likely related to injection or attempted line placement. Atherosclerotic calcifications of aorta and its branches. Radiologist: Jb Aviles MDa Laboratory Results 02/17/17 01:08 Red Blood Count 4.95, Mean Corpuscular Volume 100.6, Mean Corpuscular Hemoglobin 33.1, Mean Corpuscular Hemoglobin Concent 32.9, Mean Platelet Volume 12.8 02/17/17 01:08 02/17/17 02:15 Test 02/17/17 01:08 02/17/17 01:10 02/17/17 01:19 02/17/17 02:15 White Blood Count 8.17 K/uL (4.8-10.8) Red Blood Count 4.95 M/uL (4.7-6.1) Hemoglobin 16.4 g/dL (14.0-18.0) Hematocrit 49.8 % (42-52) Mean Corpuscular Volume 100.6 fL (80-100) Mean Corpuscular Hemoglobin 33.1 pg (25-34) Mean Corpuscular Hemoglobin Concent 32.9 g/dl (32-36) Platelet Count 161 K/uL (130-400) Mean Platelet Volume 12.8 fL (7.4-10.4) RDW Standard Deviation 54.6 fL (36.4-46.3) RDW Coefficient of Variation 15.0 % (11.5-14.5) Nucleated RBC Absolute Count (auto) 0.10 K/uL (0-0) Neutrophils % (Manual) 12.6 % Lymphocytes % (Manual) 46.0 % Monocytes % (Manual) 8.1 % Nucleated Red Blood Cells % 1.2 % Neutrophils # (Manual) 1.03 K/uL (1.4-6.5) Total Absolute Neutrophils 1.03 K/uL (1.4-6.5) Lymphocytes # (Manual) 3.76 K/uL (1.2-3.4) Total Absolute Lymphocytes 6.48 K/uL (1.2-3.4) Monocytes # (Manual) 0.66 K/uL (0.11-0.59) Percent Large Granular Lymphocytes 33.3 % Absolute Large Granular Lymphocytes 2.72 K/uL Platelet Estimate DECREASED Red Blood Cell Morphology Unremarkable Prothrombin Time 10.7 SECONDS (9.0-12.0) Prothromb Time International Ratio 1.0 (0.9-1.1) Activated Partial Thromboplast Time 23.3 SECONDS (21.0-31.0) Partial Thromboplastin Ratio 0.9 Est Creatinine Clear Calc Drug Dose 43.9 ml/min Estimated GFR () 47.7 Estimated GFR (Non- 41.2 BUN/Creatinine Ratio 14.0 (10-20) Calcium Level 8.5 mg/dl (8.5-10.1) Creatine Kinase MB 2.2 ng/ml (0.5-3.6) Creatine Kinase MB Ratio (0-3.0) Troponin I 0.407 ng/ml (0-0.045) Bedside Chloride 101 mEq/L (101-112) Bedside Total CO2 30 mEq/l (24-31) Anion Gap 14.0 mmol/L (16-25) Bedside Blood Urea Nitrogen 30 mg/dl (7-18) Bedside Creatinine 1.5 mg/dl (0.6-1.3) Bedside Glucose (other) 279 mg/dl (70-99) Bedside Ionized Calcium ([place]) 1.12 mmol/l (1.12-1.32) Bedside Hemoglobin 15.0 g/dl (14.0-18.0) Bedside Hematocrit 44 % (42-52) Bedside Sodium 139 mEq/L (135-144) Bedside Potassium 3.3 mEq/L (3.3-5.0) Lactic Acid Level 5.9 mmol/L (0.4-2.0) Magnesium Level 3.4 mg/dl (1.8-2.4) Total Creatine Kinase 125 U/L (39-308) Laboratory results as reviewed by me. Medications Administered Medications (Trade) Dose Ordered Sig/Shakira Route Start Time Stop Time Status Last Admin Dose Admin Norepinephrine Bitartrate 8 mg/ Dextrose 508 ml @ 0 mls/hr Q0M STAT IV 02/17/17 01:38 02/17/17 01:39 DC 02/17/17 01:38 32.6 MLS/HR Furosemide (Lasix Inj) 40 mg NOW STAT IV 02/17/17 01:42 02/17/17 01:43 DC 02/17/17 02:06 40 MG Fentanyl Citrate (Fentanyl Inj) 75 mcg NOW STAT IV 02/17/17 01:48 02/17/17 01:49 DC 02/17/17 02:04 75 MCG Midazolam HCl (Versed Inj) 2.5 mg NOW STAT IV 02/17/17 01:48 02/17/17 01:49 DC 02/17/17 02:03 2.5 MG Potassium Chloride (Siobhan Ciel Elix) 60 meq NOW STAT PO 02/17/17 02:14 02/17/17 02:22 DC 02/17/17 04:54 60 MEQ Midazolam HCl 250 ml @ 0 mls/hr Q0M PRN IV 02/17/17 02:14 03/19/17 02:13 02/17/17 04:18 8 MLS/HR Fentanyl Citrate 250 ml @ 0 mls/hr Q0M PRN IV 02/17/17 02:14 03/03/17 02:13 02/17/17 04:17 10 MLS/HR Procedure Endotracheal Intubation Indication cardiopulmonary arrest. The patient was on 100% oxygen via NRB prior to the procedure. Suction, airway equipment, RSI drugs, respiratory equipment, and appropriate personnel were prepared prior to the initiation of the procedure. A time out was taken. Induction was performed with 20 etomidate and 150 succinyl choline. After observing the clinical benefit of the medications, the airway was easily visualized utilizing a number 4 blade GlideScope. A 7.5 size ETT tube was placed atraumatically to 23 cm at the lip using standard technique. The cuff inflated without signs of malfunction. There were bilateral breath sounds, positive colormetric change, no gastric sounds, a good capnography waveform, and post procedure pulse oximetry was 92%. Post intubation sedation and paralysis was administered using versed fentanyl. There were no complications. ECG Indication: chest pain Rate (beats per minute): 105 Rhythm: atrial fibrillation Findings: LBBB, PVC (several), other (prolonged QTC) Comparison ECG Date: 01/03/17 Change: LBBB has increased. ED Course 0044: The patient was evaluated in room B1. A complete history and physical exam was performed. 0110: I discussed the patient's case with Thelma Rajan PA-C - ICU, and she is going to come evaluate the patient. 0122: I revaluated the patient, and his blood pressure was 84/60, and he still has a good pulse with heart rate in the 60s but irregular. We are increasing the dopamine. 0123: I discussed the patient's case with Dr. Greenfield - Cardiology, and he agrees with the current treatment and will evaluate the patient. 0143: I reassessed the patient, and he is mildly tachycardic, though the blood pressure in the 90s. We are going to switch from dopamine to Levophed. He is still not making any purposeful movements. 0150: I discussed the patient's case with Dr. Galvez, and he is going to evaluate the patient. 0215: I reevaluated the patient, and his heart rate improved in the 90s on Levophed and sedation. The patient's family is at the bedside. The debridging machine operator , hospitalist, and mechanic insulator. 0233: I reevaluated the patient, and he was stable 0256: The patient was sedated further, and I discussed with the family that it was because he was waking up. 0311: The patient was waking up again, so he getting more sedation. Medical Decision Differential: Sepsis, Infectious (UTI/Pneumonia/Meningitis/etc), Metabolic/ Electrolyte Abnormality, Cardiac, Hepatic, Endocrine, Toxicologic, Neurologic, amongst other pathologies entertained. 76 yr old male arrives from home after 2 days worsening generalized weakness with chest pain this evening. Syncopal reportedly at home (initially this wasn' t reported), though his LifeVest he has went off multiple times. Arrives in extremis and immediately brought to bay on my being called in to initial room. Patient rapidly decompensating with LifeVest shocking him multiple times. Multiple different cardiac rhythms noted on monitor throughout initial presentation. Initial IV failed and thus due to acuity right tibial IO placed by nursing. Given extremis and multiple cardioversions with obtunded patient felt that intubation required. While preparing went in to cardiac arrest, code called and ACLS initiated. Immediate excellent CPR started. Lidocaine, Epi initiated. Noted Torsades thus given Mag as well. Etomidate/Succ given for induction and intubation done without difficulty. Initial O2 sats very poor consistent with his pulmonary edema though with increase Peep and rate able to keep sats in low 90s. After multiple rounds Epi patient with ROSC. Throughout this patient with vfib/tach which was initial shocked by LifeVest and during code noted to be in asystole vs milton PEA for most of it without requiring cardioversion by us. CXR with questionable pneumothorax with bilateral pulm edema. Post ROSC trending down BP with bradycardia though continued pulses thus given small dose epi while Dopamine started. BP was able to be improved and held with moderate dose dopamine, though increasing tachycardia. Switched to Levophed and sedation increased with improvement in HR. Continued stable BPs. O2 sats improving. Lung sounds remained intact bilaterally. I reviewed case at length on multiple occasions with CCM, Cards, Hospitalist. I furthermore discussed multiple times with family the findings and severity of patient's condition. Medication Reconcilliation Current Medication List: was personally reviewed by me Blood Pressure Screening Patient's blood pressure: Low blood pressure Managed by the hospitalist Consults Time Called: 010 Consulting Physician: Thelma CARL-C - ICU Returned Call: 0110 I discussed the patient's case with Thelma ANDERSONC - ICU, and she is going to come evaluate the patient. Additional Consults: Time Called: 0115 Consulted Physician: Dr. Greenfield - Cardiology Returned Call: 0123 Additional Comments: I discussed the patient's case with Dr. Jean Pierre Linares Cardiology, and he agrees with the current treatment and will evaluate the patient. Time Called: 0146 Consulted Physician: Dr. Galvez Returned Call: 0150 Additional Comments: I discussed the patient's case with Dr. Galvez, and he is going to evaluate the patient. Impression Primary Impression: Ventricular tachycardia Additional Impressions: Cardiac arrest Pulmonary edema Pneumothorax on right Rib fractures Critical Care I have personally spent greater than 130 minutes of critical care time in the direct management of this patient. This was a life/limb threatening event. This includes time spent evaluating patient, direct bedside care, chart review, placing orders, interpretation of diagnostic studies, discussion with consultants, patient, and family members, as well as other required patient management activities. This 130 minutes is in excess of all separately billable procedures. Scribe Attestation The scribe's documentation has been prepared under my direction and personally reviewed by me in its entirety. I confirm that the note above accurately reflects all work, treatment, procedures, and medical decision making performed by me. Departure Information Dispostion Being Evaluated By Hospitalist Referrals Neftali Jamil M.D.(KAILEE) (PCP) Patient Instructions [facility] Problem Qualifiers
[2017-02-17] MEDS ORDERED: GLUCOSE 40% GEL 15 GM TUBE PO PRN (05:15)
[2017-02-17] MEDS ORDERED: GLUCOSE 10 TABS/TUBE PO PRN (05:15)
[2017-02-17] MEDS ORDERED: GLUCAGON FOR INJ 1 MG VIAL SQ PRN (05:15)
[2017-02-17] MEDS ORDERED: HEPARIN IV LOW DOSE NO BOLUS STA (05:20)
--- NOTE | 2017-02-17 05:24 | Procedure Note ---
Procedure Note Procedure Date Feb 17, 2017. Procedure Description Procedure Name: Right Radial Arterial Catheter Insertion Procedure time out: side/site verified, patient ID confirmed, correct procedure Consent obtained: emergent consent implied Time of procedure: 05:05 Performed by: physician loom overhauler Indications: diagnostic, therapeutic Contraindications: none Description: Using sterile technique; the right radial artery was cleaned with a chloro- hexadine scrub after adequate palpation and visualization with the ultrasound, a finder needle with overlaying catheter was then used with approach at a 45* angle until a flash was obtained with direct visualization on ultrasound. Using Seldinger technique, there was initially no difficulty passing the guide wire, on the second attempt the guide wire was then passed successfully into the artery and the catheter was threaded over the guide wire; which was then removed. Arterial blood was seen pulsating from catheter tip and a luer lock valve was attached to the catheter. The A-line catheter was then secured by stat lock and covered with a sterile surgical dressing. Pt was reassessed and small hematoma was noted near the lower insertion point from the first attempt. There was no hematoma at the final site more proximal. The tubing was placed between the first and second fingers and taped to the forearm, before a wrist support was placed. Pt tolerated the procedure well with no complications. Emergent Consent was obtained by Dr. Geoffrey Haque Complications: none Patient tolerated procedure: well Post-procedure vital signs: reviewed and stable Central Line Procedure time out: side/site verified, patient ID confirmed, sterile procedure used Consent obtained: emergent consent implied Time of procedure: 04:15 Performed by: physician loom overhauler Indications: central drug admin. Prep: chlorhexadine prep, sterile drape, sterile procedures used Anesthesia: local injection, lidocaine 1% without epi Volume anesthetic (ml's): 5 Central line lumen: triple Central line location: internal jugular (R) Additional details: percutaneous placement, ultrasound guidance, Selinger technique used, line sutured, good blood return CXR: appropriate position Complications: pneumothorax (Unchanged Small Pneumothorax s/p CPR Compressions : Chest Tube to be placed by Dr. Haque. ) Patient tolerated procedure: well Post-procedure vital signs: reviewed and stable Comments: Consent was obtained prior to procedure. Indication, risks, and benefits were explained at length. Procedure: Procedure was performed under strict sterile field in O.R. fashion. The right neck and chest were cleaned with chloroprep scrub and the pt was draped in sterile fashion. The internal jugular vein was identified using ultrasound. After anesthetizing the area with 5cc of lidocaine, venous blood was withdrawn after accessing the vein under ultrasound guidance. The syringe was removed and a guide wire was advanced into the introducer needle.The dilator was advanced after being exchanged for the introducer needle. After appropriate dilation was obtained, the dilator was removed and the central catheter was placed over the guide wire using Seldinger technique. The wire was removed and the catheter was sutured at 17cm. A surgical dressing was placed over the catheter with a biofilm shield in place. At the time of the procedure each port was aspirated and then flushed properly. Pt tolerated the procedure well with no complications. Post procedure x-ray was completed, placement was appropriate and prior right sided pneumothorax caused by chest compressions persists. Dr. Haque in route to place chest tube. .
[2017-02-17] MEDS: FAMOTIDINE IV INJ 20 MG in SYRINGE 3 ML IV SCH ×2 (05:26→17:32)
[2017-02-17] MEDS: NOREPINEPHRINE BIT INJ 8 MG in DEXTROSE 5% 500ML 500 ML IV PRN ×3 (05:29→14:59)
[2017-02-17] MEDS ORDERED: AMIODARONE 360MG / 200ML D5W ONE (05:32)
--- NOTE | 2017-02-17 05:39 | CARDIOLOGY CONSULTATION ---
DATE OF CONSULTATION: 02/17/2017 REFERRING PHYSICIAN: Dr. Chalo Galvez and Dr. Ocasio. PRIMARY CARE PHYSICIAN: Dr. Jamil. REFERRING DIAGNOSIS: Status post cardiac arrest, code arctic. HISTORY OF PRESENT ILLNESS: The patient is a complex 76-year-old male with recent hospitalization at [facility] on 12/31/2016. His past history is notable for prior remote evidence of inferior myocardial infarction in the with mild LV dysfunction. He was hospitalized in December as noted with new onset systolic heart failure and evidence of ischemic cardiomyopathy, EF 30-35% with a large area of thick scar by nuclear imaging in the inferior, inferolateral and lateral ye. Underlying medical problems include left bundle branch block, recently observed hypertension, dyslipidemia, chronic obstructive lung disease and sleep apnea with chronic nocturnal hypoxia on oxygen supplementation, atherosclerotic peripheral vascular disease and diabetes mellitus. At time of hospital discharge, patient was in December begun on ZOLL LifeVest for concerns regarding ischemic cardiomyopathy. He has recently been evaluated and noted to have chronic dyspnea. He was today in [place] visiting family for great niece graduated from nursing school. He was in his room noting having been pacing with complaints of shortness of breath earlier. Family were in another room when they heard him fall to the floor where he was found to be unconscious. Shortly after doing so, his LifeVest gave shock, paramedics were summoned. Per report, during transport he received an additional shock from LifeVest and then once again on arrival to the Emergency Room. His initial rhythm was V-tach on telemetry. He underwent extensive cardiopulmonary resuscitation in the Emergency Room which included antiarrhythmic therapy initially with lidocaine and IV amiodarone, multiple rounds of IV epinephrine, 2 amps of bicarbonate and an amp of magnesium. Rhythms included V-tach, VFib and torsades ultimately returning to atrial fibrillation with wide complex rhythm. He was begun on pressor support with initially dopamine and switched to Levophed. He has been intubated and is on full respiratory support. He has received sedation prior to intubation and since pressures have been marginal in 90-100 range on current pressors. He is unable to offer any additional information as expected. Family notes he has been more breathless today and prior to the day of the event and "had been pacing in the house." There is no discerned history of chest pain or discomfort. Last evaluation in the outpatient setting was performed on 02/14/2017 with the patient at that time noting class 3 dyspnea. REVIEW OF SYSTEMS: Otherwise unobtainable. ALLERGIES: LISTED LISINOPRIL. MEDICATIONS: Prior to hospitalization were DuoNeb nebulizers, losartan 25 mg daily, rosuvastatin 5 mg p.o. daily, spironolactone 25 mg p.o. daily, torsemide 20 mg p.o. daily, metoprolol succinate 25 mg p.o. daily, oxygen 2 liters nasal cannula, Combivent inhaler, aspirin 81 mg per day, old prescription for sildenafil citrate listed on list. PAST SURGICAL HISTORY: Notable for prior colonoscopies only. FAMILY HISTORY: Positive for heart disease in father. SOCIAL HISTORY: The patient is a prior long distance driver lifter of sanitation truck with past tobacco use, rare alcohol use. PHYSICAL EXAMINATION: GENERAL: The patient is currently intubated and sedated. Face is plethoric. Pupils are fixed but patient has received paralytics for sedation. VITAL SIGNS: Heart rate 73, blood pressure is 106/64. HEENT: Normocephalic, atraumatic. Nares without discharge. Throat was clear. NECK: Supple without thyromegaly, lymphadenopathy. Neck is thick with obvious venous engorgement. LUNGS: Reveal coarse rales and crackles with upper airway sounds because of ventilated state. CARDIOVASCULAR: Regular with distant heart sounds. There is no S3 gallop. ABDOMEN: Soft, obese, nontender. EXTREMITIES: Reveal interosseous line on the right carpenter. There is trace edema with diminished pulses traced 2/4 dorsalis pedis and posterior tibialis. NEUROLOGIC: The patient unassessed due to sedated and paralyzed state. LABORATORY DATA: Initial point of care laboratory studies demonstrate sodium 139, potassium 3.6, chloride 101, bicarbonate 29, BUN 23, creatinine 1.6, initial CK-MB is normal. Troponin 0.4. Coag levels are normal. White cell count is 8.1, hemoglobin 16.4, platelet counts 161. Initial blood gas was notable for marked acidosis. Chest x-ray reveals diffuse pulmonary edema and cardiomegaly. EKG reveals atrial fibrillation with rapid ventricular response, right and left bundle branch block configuration. IMPRESSION: The patient is a 76-year-old male with history of ischemic cardiomyopathy as defined during the hospitalization for new onset congestive heart failure in December 2016. He was [facility] [place] [facility] great niece graduation today and had had some symptoms of worsening dyspnea, unsettled, and uneasiness this evening when he suffered an unwitnessed collapse with family in the room nearby. He was wearing a LifeVest provided at the time of recent discharge and received appears to be appropriate defibrillation at home, en route to the hospital and on arrival. He has received resuscitation and regained rhythm with atrial fibrillation with wide complex configuration with patient's known left bundle branch block an issue. Code arctic has been initiated and the patient begun chilling process, ICU staff was present. RECOMMENDATIONS: The patient will proceed to the ICU and with CT scan of the head order en route. If no signs or symptoms of bleeding, heparin will be initiated in addition to the patient's current sedation and antiarrhythmic and pressor support. Discussed findings in detail. He did have profound acidosis on initial presentation, but has been treated appropriately and promptly in the ER and prehospital setting. Ultimate plan will be proper cooling and clinical stabilization and reassess status in 24-48 hours depending on clinical course. I noted to all members of family there is a distinct possibility of deterioration in the interim and we will continue to follow closely in the hospital.
[2017-02-17] MEDS: HEPARIN 25,000 UNIT/500ML D5W 500 ML IV PRN (05:46)
[2017-02-17] MEDS ORDERED: RANITIDINE IV 50 MG in DEXTROSE 5% 100ML 100 ML IV SCH (06:00)
--- NOTE | 2017-02-17 06:29 | DIAGNOSTIC IMAGING REPORT ---
(CHEST) THORAX WITHOUT CT DOSE: HISTORY: Dyspnea Cardiac Arrest/Resp Failure TECHNIQUE: Multiaxial CT images of the chest were performed without contrast. A dose lowering technique was utilized adhering to the principles of ALARA. COMPARISON: None. FINDINGS: Significant a right hemithoracic subcutaneous emphysema. Small right pneumothorax. Maximum anterior basilar pleural separation is 1.4 cm. Small right with a minimal left pleural effusion. Bibasilar atelectatic change. Mild cardiomegaly with components suggesting mild congestive failure. There is a nasogastric tube at the gastroesophageal junction and are slightly distal to this level. Additional nondisplaced bilateral rib fractures. This includes the right fourth fifth and sixth ribs and possibly seventh ribs set includes left anterior third and fourth ribs. Endotracheal tube origin right mainstem bronchus. IMPRESSION: 1. Extensive right-sided subcutaneous emphysema. 2. Small right and to lesser extent left pleural effusions with superimposed basilar atelectasis. 3. Small right-sided pneumothorax with maximal pleural separation of 1.4 cm. 4. Endotracheal tube origin right main stem bronchus. This should be pulled back several centimeters. 5. Nasogastric tube at or slightly distal to the gastroesophageal junction. 6. Several nondisplaced bilateral rib fractures. 7. Components of congestive heart failure The above report was generated using voice recognition software. It may contain grammatical, syntax or spelling errors. Electronically signed by: Ariel Miller M.D. 02/17/2017 6:28 AM Dictated Date/Time: 02/17/2017 6:24 AM
--- NOTE | 2017-02-17 06:37 | DIAGNOSTIC IMAGING REPORT ---
CHEST ONE VIEW PORTABLE CLINICAL HISTORY: CENTRAL LINE PLACEMENT COMPARISON STUDY: 02/17/2017 FINDINGS: The cardiac and mediastinal contours remain stable. There is an endotracheal tube with its tip 4 mm above the mickie. There is a nasogastric tube which passes into the stomach. There is a right internal jugular central venous catheter. The tip projects over the superior vena cava. There is a right-sided pneumothorax the pleural separation of 27 mm. There is subcutaneous emphysema on the right. There is improving interstitial pulmonary edema.[ IMPRESSION: 1. Endotracheal tube 4 mm above the mickie 2. 27 mm right apical pneumothorax 3. Interval placement of a right internal jugular central venous catheter the tip which projects in the superior vena cava 4. Nasogastric tube which extends into the upper abdomen 5. Improving interstitial pulmonary edema 6. Subcutaneous emphysema on the right Electronically signed by: Jass Genao M.D. 02/17/2017 6:35 AM Dictated Date/Time: 02/17/2017 6:33 AM
--- NOTE | 2017-02-17 06:37 | DIAGNOSTIC IMAGING REPORT ---
HEAD WITHOUT CONTRAST (CT) CT DOSE: 1350.24 mGy.cm HISTORY: Dyspnea Code Arctic Blue TECHNIQUE: Multiaxial CT images of the head were performed without the use of intravenous contrast. A dose lowering technique was utilized adhering to the principles of ALARA. Comparison: None. Findings: Moderate hypertrophic change of the nasal turbinates. Mild mucosal thickening ethmoid sinuses. The calvarium and skull base are intact. The ventricles and sulci are within normal limits. There is no mass, hematoma, midline shift, or acute infarct. Impression: No acute intracranial abnormality. The above report was generated using voice recognition software. It may contain grammatical, syntax or spelling errors. Electronically signed by: Ariel Miller M.D. 02/17/2017 6:35 AM Dictated Date/Time: 02/17/2017 6:34 AM
--- NOTE | 2017-02-17 06:42 | DIAGNOSTIC IMAGING REPORT ---
ABD/PELVIS NO IV OR ORAL CONT CT DOSE: 1243.40 mGy.cm HISTORY: Dysphagia Free air in Chest TECHNIQUE: Multiaxial CT images of the abdomen and pelvis were performed without contrast. A dose lowering technique was utilized adhering to the principles of ALARA. COMPARISON STUDY: None. FINDINGS: Extensive right sided subcutaneous emphysema. Small bilateral pleural effusions and bibasilar atelectasis. Nasogastric tube slightly distal to the gastroesophageal junction. A right basilar pneumothorax with a maximum pleural separation of 1.7 cm. Several lower right rib fractures. Subcutaneous emphysema extends along the anterior abdominal wall region. There is no evidence for free intraperitoneal air. The bowel pattern is considered nonobstructive. Configuration of liver and spleen and pancreas are unremarkable. Several nonobstructing right and to lesser extent left renal calcifications. Weiss Catheter within the bladder. Trace amount of air within the femoral veins most likely secondary to a line placement procedure. Colonic diverticulosis with no evidence of diverticulitis. IMPRESSION: No significant abnormality identified within the abdomen or pelvis. Subcutaneous air lateral right hemithorax and anterior right abdominal wall region. Colonic diverticulosis. The above report was generated using voice recognition software. It may contain grammatical, syntax or spelling errors. Electronically signed by: Ariel Miller M.D. 02/17/2017 6:41 AM Dictated Date/Time: 02/17/2017 6:36 AM
--- NOTE | 2017-02-17 06:43 | DIAGNOSTIC IMAGING REPORT ---
CHEST ONE VIEW PORTABLE CLINICAL HISTORY: Placed Chest Tube PNEUMOTHORAX COMPARISON STUDY: 02/17/2017 FINDINGS: The cardiac and mediastinal contours remain stable. There is a nasogastric tube which passes into the stomach. There is a right internal jugular central venous catheter. There is an endotracheal tube positioned 8 mm above the mickie. There is been interval placement of a right-sided chest tube. The tube terminates over the T3 spinous process. There is an additional wire/catheter projected over the right chest wall. The margin/etiology of this catheter is unclear and this will need to be correlated clinically. There is right-sided subcutaneous emphysema. The right-sided pneumothorax has been evacuated. There is mild interstitial edema.[ IMPRESSION: 1. Interval placement of a right-sided chest tube with evacuation of the right-sided pneumothorax 2. Extensive right-sided subcutaneous emphysema 3. Mild interstitial edema 4. Endotracheal tube 8 mm above the mickie. Electronically signed by: Jass Genao M.D. 02/17/2017 6:41 AM Dictated Date/Time: 02/17/2017 6:38 AM
--- NOTE | 2017-02-17 06:44 | DIAGNOSTIC IMAGING REPORT ---
CHEST ONE VIEW PORTABLE CLINICAL HISTORY: 76 years-old Male presenting with Chest Pain. TECHNIQUE: Portable supine AP view of the chest was obtained. COMPARISON: 01/02/2017. FINDINGS: Endotracheal tube terminates in the lower thoracic trachea over 2 cm from the mickie. Atherosclerosis of the aortic arch. Enlargement of the cardiac silhouette. Interval development of bilateral hazy opacities diffusely involving both lungs. Bronchial wall thickening also noted. Possible small bilateral pleural effusions. The trace right apical pneumothorax visualized on subsequent chest CT is not appreciated on this radiograph. Degenerative changes of the thoracic spine. Rib fractures better appreciated on subsequent chest CT. Upper abdomen normal. IMPRESSION: 1. Findings characteristic of pulmonary edema the setting of cardiomegaly. Infection or diffuse alveolar damage could appear similarly. 2. Trace right apical pneumothorax better appreciated on subsequent chest CT. 3. Endotracheal tube over 2 cm from the mickie on this radiograph. Electronically signed by: Andrea Rice M.D. 02/17/2017 6:43 AM Dictated Date/Time: 02/17/2017 6:39 AM
[2017-02-17] MEDS ORDERED: AMIODARONE / D5W 200 ML IV SCH (07:00)
[2017-02-17] MEDS: INSULIN ASPART 100 UNITS/ML 3 ML PEN SC SCH ×4 (07:54→20:43)
[2017-02-17] MEDS: ALBUTEROL HFA 8 GM INHALER INH SCH ×4 (08:00→20:03)
[2017-02-17] MEDS: IPRATROPIUM BROMIDE HFA INHALER INH SCH ×4 (08:00→20:03)
[2017-02-17] MEDS ORDERED: ALBUT/IPRATROP 3MG/0.5MG NEB 3 ML VIAL INH SCH (08:00)
[2017-02-17 09:12] LABS: PTT PATIENT 29.8 SECONDS (21.0-31.0)
--- NOTE | 2017-02-17 09:21 | ECHOCARDIOGRAM REPORT ---
*NOTICE TO RECEIVING [employer] This information is strictly Confidential and protected under [place] law. [place] law prohibits you from making any further disclosure of this information unless further disclosure is expressly permitted by the written consent of the person to whom it pertains or is authorized by law. A general authorization for the release of medical or other information is not sufficient for this purpose. Hospital accepts no responsibility if the information is made available to any other person, INCLUDING THE PATIENT. Interpretation Summary * Name: LUIS MIGUEL ANDRE Study Date: 02/17/2017 07:22 AM BP: 126/55 mmHg * Patient Location: .MSICU\S\E110\S\1 HR: 63 * : 1940 (M/d/yyyy) Gender: Male Height: 72 in * Age: 76 yrs Ethnicity: [place] Weight: 192 lb * Ordering Physician: Chalo Galvez * Referring Physician: Self, Referred * Performed By: Irish Worley RCS * * Reason For Study: Cardiac Arrest * BSA: 2.1 m2 * Compared to prior study, there is no significant change. * -- Conclusions -- * The left ventricle is normal in size. * Moderate concentric left ventricular hypertrophy is present in segments with relatively normal wall motion * There is thinninig and scar of the inferior base, posterior and inferolateral ye. * Septal motion is consistent with conduction abnormality. * There is moderate apical wall hypokinesis. * There is inferior wall akinesis. * There is posterior wall akinesis. * Ejection Fraction = 25-30%. * There is moderate to severe mitral regurgitation. * There is no pericardial effusion. Procedure Details * A complete two-dimensional transthoracic echocardiogram was performed (2D, M-mode, Doppler and color flow Doppler). * There were technical limitations due to patient'ssupine positioning while on mechanical ventilation * A contrast injection of Definity was performed to improve assessment of LV function. * Contrast was injected into an intravenous site in the central line. * One vial of Definity ultrasound contrast was diluted in normal saline to a total volume of 10 ml. A total of '1' ml of solution was administered during imaging. * Lot # [id number] of Definity utilized for procedure. * Expiration date 1FEB19. * The attending nurse who injected the contrast agent was Liana Scruggs RN. Left Ventricle * The left ventricle is normal in size. * Moderate concentric left ventricular hypertrophy is present in segments with relatively normal wall motion There is thinninig and scar of the inferior base, posterior and inferolateral ye. * Ejection Fraction = 25-30%. * Septal motion is consistent with conduction abnormality. * There is moderate apical wall hypokinesis. * There is posterior wall akinesis. * There is inferior wall akinesis. Atria * The left atrium is mildly dilated. * Right atrial size is normal. * Lipomatous hypertrophy of the interatrial septum is noted. * No ASD detected; PFO is not assessed. Mitral Valve * The mitral valve leaflets appear thickened, but open well. * There is no mitral valve stenosis. * There is moderate to severe mitral regurgitation. Tricuspid Valve * The tricuspid valve is not well visualized, but is grossly normal. * There is trace tricuspid regurgitation. Aortic Valve * Aortic valve sclerosis mild, without significant aortic valvular stenosis. * There is no significant aortic regurgitation. Pulmonic Valve * The pulmonic valve is not well visualized. Great Vessels * The aortic root is normal size. Pericardium/Pleural * There is no pericardial effusion. Great Vessels * Normal inferior vena cava diameter and respiratory variation suggests normal central venous pressure. Left Ventricular Diastolic Function * Diastolic dysfunction, Grade II, consistent with congestive heart failure. MMode 2D Measurements and Calculations IVSd 1.1 cm IVSs 1.3 cm LVIDd 5.3 cm LVIDs 4.7 cm LVPWd 0.94 cm LVPWs 0.96 cm IVS/LVPW 1.2 FS 11.0 % EDV(Teich) 134.1 ml ESV(Teich) 102.4 ml EF(Teich) 23.7 % EDV(cubed) 147.1 ml ESV(cubed) 103.8 ml EF(cubed) 29.4 % % IVS thick 17.7 % % LVPW thick 2.4 % LV mass(C)d 205.4 grams LV mass(C)dI 98.1 grams/m\S\2 LV mass(C)s 195.6 grams LV mass(C)sI 93.4 grams/m\S\2 SV(Teich) 31.7 ml SI(Teich) 15.1 ml/m\S\2 SV(cubed) 43.3 ml SI(cubed) 20.7 ml/m\S\2 Ao root diam 2.5 cm Ao root area 4.8 cm\S\2 LA dimension 4.2 cm LA/Ao 1.7 EDV(MOD-sp4) 197.0 ml ESV(MOD-sp4) 240.0 ml EF(MOD-sp4) -21.83 % ESV(MOD-sp2) 80.0 ml SV(MOD-sp4) -430 ml SI(MOD-sp4) -20.54 ml/m\S\2 Doppler Measurements and Calculations MV E max shelby 87.2 cm/sec MV A max shelby 43.4 cm/sec MV E/A 2.0 MV P1/2t max shelby 99.3 cm/sec MV P1/2t 102.6 msec MVA(P1/2t) 2.1 cm\S\2 MV dec slope 283.6 cm/sec\S\2 MV dec time 0.27 sec Ao V2 max 104.5 cm/sec Ao max PG 4.4 mmHg Ao max PG (full) 2.1 mmHg LV V1 max PG 2.2 mmHg LV V1 max 74.7 cm/sec PA V2 max 61.7 cm/sec PA max PG 1.5 mmHg TR max shelby 92.5 cm/sec
[2017-02-17 09:28] LABS: CALCIUM 8.5 mg/dl (8.5-10.1); CREATININE 1.36 mg/dl (0.60-1.40); PHOSPHORUS 1.4 mg/dl (2.5-4.9)
[2017-02-17 09:29] LABS: POTASSIUM 2.9 mmol/L (3.5-5.1)
[2017-02-17] MEDS ORDERED: POTASSIUM CHLR 20 MEQ / WTR 40 MEQ in PREMIXED WATER 100 ML IV STA (09:34)
[2017-02-17] MEDS ORDERED: POTASSIUM PHOS 3 MMOL/1 ML INFUSION IV STA (09:34)
--- NOTE | 2017-02-17 09:49 | Cardiology Follow-Up ---
Subjective General Date of Service: Feb 17, 2017. Chief Complaint: Cardiac arrest Pt evaluation today including: conversation w/ patient, conversation w/ family , physical exam, chart review, lab review, review of studies, review of inpatient medication list History of Present Illness Patient seen and examined. Family at bedside. Patient is intubated and sedated. Telemetry currently appears to show atrial fibrillation with a controlled ventricular response with complex multifocal ventricular ectopy. February 17, 2017 TTE Interpretation Summary ([facility], Dr. Nolberto Greenfield): Compared to prior study, there is no significant change. The left ventricle is normal in size. Moderate concentric left ventricular hypertrophy is present in segments with relatively normal wall motion. There is thinninig and scar of the inferior base, posterior and inferolateral ye. Septal motion is consistent with conduction abnormality. There is moderate apical wall hypokinesis. There is inferior wall akinesis. There is posterior wall akinesis. Ejection Fraction = 25-30&. There is moderate to severe mitral regurgitation. There is no pericardial effusion. AM labs are pending from 08:24 AM. Allergies Coded Allergies: Lisinopril (Unverified Adverse Reaction, Intermediate, HIGH POTASSIUM LEVELS, 02/17/17) Atorvastatin (Verified Adverse Reaction, Unknown, muscle weakness in legs , 02/17/17) Social History Smoking Status: Former Smoker Hx Tobacco Use In Past Year?: Yes Hx Alcohol Use - Type And Amou: Yes (Social) Hx Substance Use - Type And Am: No Problem List Medical Problems: (1) Elevated troponin Status: Acute (2) Pneumothorax on right Status: Acute (3) Pulmonary edema Status: Acute (4) Rib fractures Status: Acute (5) Ventricular tachycardia Status: Acute Physical Exam Vital Signs Last Vital Signs Documentation Date Time Temp Pulse Resp B/P (MAP) Pulse Ox O2 Delivery O2 Flow Rate FiO2 02/17/17 08:00 35.4 64 18 99/67 (78) 97 Mechanical Ventilator 40 113/49 (70) Physical Exam Constitutional: Level of Distress: acutely ill Neck: pertinent finding (Normal JVP) Lungs: Auscultation: no wheezing, no rales/crackles, deminished air movement, decreased breath sounds Cardiovascular: Heart Auscultation: no rubs, gallop, irregular rate rhythm, pertinent finding (Apical systolic murmur) Peripheral Pulses: Dorsalis Pedis Pulse: absent on the left, absent on the right Abdomen: Bowel Sounds: normal Inspection & Palpation: soft Extremities: no cyanosis, no edema, no clubbing Assessment and Plan Assessment and Plan Complex 76 year old male with history of severe ischemic cardiomyopathy who presented in the early AM hours after an out of hospital arrest, appearing to receive appropriate defibrillation from a Zoll Life Vest - arrhythmogenic event. Patient appropriately resuscitated. [facility] protocol initiated. RECOMMENDATIONS/PLAN: Supplement and maintain electrolytes Continue IV amiodarone, 0.5 mg/min Interrogate the Zoll Life Vest IV heparin, per protocol (CBC still pending from 08:24 AM) Further recommendations pending the above, evaluation by Dr. Greenfield, and his ongoing hospitalization course. Patient seen and examined. Echocardiogram reviewed -- ischemic cardiomyopathy with extensive inferior / posterior scar not dramatically changed from 03/2016 EF 25-30% Event appears primarily due arrhythmia with possible hypoxia as precipitating cause, Plan to taper norepinephrine, add dopamine as needed, complete [facility] protocol Nolberto Greenfield MD Laboratory Results Last 24 Hours Test 02/17/17 01:08 02/17/17 01:10 02/17/17 01:19 02/17/17 02:15 White Blood Count 8.17 K/uL Red Blood Count 4.95 M/uL Hemoglobin 16.4 g/dL Hematocrit 49.8 % Mean Corpuscular Volume 100.6 fL Mean Corpuscular Hemoglobin 33.1 pg Mean Corpuscular Hemoglobin Concent 32.9 g/dl Platelet Count 161 K/uL Mean Platelet Volume 12.8 fL RDW Standard Deviation 54.6 fL RDW Coefficient of Variation 15.0 % Nucleated RBC Absolute Count (auto) 0.10 K/uL Neutrophils % (Manual) 12.6 % Lymphocytes % (Manual) 46.0 % Monocytes % (Manual) 8.1 % Nucleated Red Blood Cells % 1.2 % Neutrophils # (Manual) 1.03 K/uL Total Absolute Neutrophils 1.03 K/uL Lymphocytes # (Manual) 3.76 K/uL Total Absolute Lymphocytes 6.48 K/uL Monocytes # (Manual) 0.66 K/uL Percent Large Granular Lymphocytes 33.3 % Absolute Large Granular Lymphocytes 2.72 K/uL Blood Smear Review Platelet Estimate DECREASED Red Blood Cell Morphology Unremarkable Prothrombin Time 10.7 SECONDS Prothromb Time International Ratio 1.0 Activated Partial Thromboplast Time 23.3 SECONDS Partial Thromboplastin Ratio 0.9 Sodium Level 139 mmol/L Potassium Level mmol/L 3.6 mmol/L Chloride Level 101 mmol/L Carbon Dioxide Level 29 mmol/L Anion Gap 9.0 mmol/L 14.0 mmol/L Blood Urea Nitrogen 23 mg/dl Creatinine 1.62 mg/dl Est Creatinine Clear Calc Drug Dose 43.9 ml/min Estimated GFR () 47.7 Estimated GFR (Non- 41.2 BUN/Creatinine Ratio 14.0 Random Glucose 285 mg/dl Calcium Level 8.5 mg/dl Magnesium Level mg/dl 3.4 mg/dl Total Creatine Kinase U/L 125 U/L Creatine Kinase MB 2.2 ng/ml Creatine Kinase MB Ratio Troponin I 0.407 ng/ml Bedside Hemoglobin 16.3 g/dl 15.0 g/dl Bedside Hematocrit 48 % 44 % Bedside Sodium 140 mEq/L 139 mEq/L Bedside Potassium 3.6 mEq/L 3.3 mEq/L Bedside Chloride 101 mEq/L Bedside Total CO2 30 mEq/l Bedside Blood Urea Nitrogen 30 mg/dl Bedside Creatinine 1.5 mg/dl Bedside Glucose (other) 279 mg/dl Bedside Ionized Calcium ([place]) 1.12 mmol/l Bedside Blood Gas pH (LAB) 6.86 Bedside Blood Gas pCO2 (LAB) > 115 mmHg Bedside Blood Gas pO2 (LAB) 133 mmHg Bedside Blood Gas HCO3 (LAB) 23 meq/L Bedside Blood Gas Total CO2 27 mEq/l Bedside Blood Gas Base Excess (LAB) -11.0 meq/L Bedside Blood Gas O2 Saturation 95.0 % Lactic Acid Level 5.9 mmol/L Test 02/17/17 04:51 02/17/17 07:19 02/17/17 08:00 02/17/17 08:07 Blood Gas Sample Site R Radial Bedside Blood Gas pH (LAB) 7.31 Bedside Blood Gas pCO2 (LAB) 62 mmHg Bedside Blood Gas pO2 (LAB) > 420 mmHg Bedside Blood Gas HCO3 (LAB) 32 meq/L Bedside Blood Gas Total CO2 34 mEq/l Bedside Blood Gas Base Excess (LAB) 5.0 meq/L Bedside Blood Gas O2 Saturation 100.0 % Ran Test Pass Oxygen Delivery Device Ventilator Bedside Oxygen Rate (breaths/min) 18 Blood Gas Minute Ventilation 9 Bedside FiO2 100 % Blood Gas Tidal Volume 550 Blood Gas PEEP 5 Bedside Glucose (other) 309 mg/dl 281 mg/dl Creatine Kinase MB Ratio Test 02/17/17 08:24 Prothrombin Time 11.0 SECONDS Prothromb Time International Ratio 1.0 Activated Partial Thromboplast Time 29.8 SECONDS Partial Thromboplastin Ratio 1.1
[2017-02-17] MEDS: POTASSIUM CHLR 20MEQ / WTR IV SCH ×4 (10:26→18:56)
[2017-02-17] MEDS ORDERED: SUCCINYLCHOLINE CHLORIDE 20 MG/ML 10 ML VIAL IV ONE (10:26)
[2017-02-17] MEDS ORDERED: ETOMIDATE 2 MG/ML 20 ML VIAL IV ONE (10:26)
[2017-02-17] MEDS ORDERED: POTASSIUM PHOSPHATE INJ 30 MMOL in SODIUM CHLORIDE 0.9% 500ML 500 ML IV SCH (10:30)
[2017-02-17 11:13] LABS: BASO % 0.1 %; BASO ABS # 0.01 K/uL (0-0.2); EOS % 0.1 %; EOS ABS # 0.01 K/uL (0-0.5); HEMATOCRIT 47.2 % (42-52); HEMOGLOBIN 15.8 g/dL (14.0-18.0); IG# 0.11 K/uL (0.00-0.02); LYMPH % 6.7 %; LYMPH ABS # 0.81 K/uL (1.2-3.4); MEAN CELL VOLUME 97.7 fL (80-100); MEAN CORPUSCULAR HEMOGLOBIN 32.7 pg (25-34); MEAN CORPUSCULAR HGB CONC 33.5 g/dl (32-36); MEAN PLATELET VOLUME 12.7 fL (7.4-10.4); MONO % 6.2 %; MONO ABS # 0.75 K/uL (0.11-0.59); NEUT ABS # 10.41 K/uL (1.4-6.5); PLATELET COUNT 157 K/uL (130-400); RED CELL DISTRIBUTION WIDTH SD 53.7 fL (36.4-46.3)
--- NOTE | 2017-02-17 11:40 | EEG Procedure Note ---
EEG Procedure Note Date of Service Feb 17, 2017. Start / End Times Start Time: 02/17/2017 at 7:41 AM End Time: 02/17/2017 at 11:11 AM Referring Physician Thelma CARL and Dr Chun History This is a 76-year-old male who presented with cardiac arrest and hypothermia protocol. Continuous video EEG for further evaluation and monitoring of subclinical seizures during cooling protocol. Home Medication List Scheduled Aspirin (Aspirin Ec), 81 MG PO HS Home O2 Therapy (Oxygen), 2 LITERS NA HS Ipratropium-Albuterol (Duoneb), 1 TREATMENT INH TID Losartan Potassium (Cozaar), 25 MG PO QPM Metoprolol Succinate (Toprol Xl), 25 MG PO QAM Rosuvastatin Calcium (Crestor), 5 MG PO QAM Spironolactone (Aldactone), 25 MG PO QAM Torsemide (Demadex), 20 MG PO QAM Scheduled PRN Ipratropium-Albuterol (Combivent Respimat), 1 PUFFS INH QID PRN for Wheezing Omeprazole (Prilosec), 20 MG PO QAM PRN for Heartburn Sildenafil Citrate (Viagra), 25 MG PO UD PRN for intercourse Sucralfate (Carafate), 1 GM PO ACHS PRN for Heartburn Inpatient Medication List Current Inpatient Medications Medications (Trade) Dose Ordered Sig/Shakira Route Start Time Stop Time Status Last Admin Dose Admin Midazolam HCl 250 ml @ 0 mls/hr Q0M PRN IV 02/17/17 02:14 03/19/17 02:13 02/17/17 04:18 8 MLS/HR Fentanyl Citrate 250 ml @ 0 mls/hr Q0M PRN IV 02/17/17 02:14 03/03/17 02:13 02/17/17 04:17 10 MLS/HR Acetaminophen (Tylenol Tab) 650 mg Q4H PRN PO 02/17/17 02:30 03/19/17 02:29 Ondansetron HCl (Zofran Inj) 4 mg Q6H PRN IV 02/17/17 02:30 03/19/17 02:29 Artificial Tears (Lacri-Lube Oph Oint) 1 appln Q2H PRN OPB 02/17/17 03:15 03/19/17 03:14 Famotidine 20 mg/ Syringe 5 ml @ 2.5 mls/min Q12H IV 02/17/17 06:00 03/19/17 05:59 02/17/17 05:26 2.5 MLS/MIN Buspirone HCl (BusPAR TAB) 60 mg ONE PRN NG 02/17/17 03:15 03/19/17 03:14 Meperidine HCl (Demerol Inj) 25 mg Q2H PRN IV 02/17/17 03:15 03/03/17 03:14 Dobutamine HCl 0 ml @ 0 mls/hr Q0M PRN IV 02/17/17 03:16 03/19/17 03:15 Insulin Aspart (novoLOG ASPART) SLIDING SCALE [facility] 02/17/17 08:00 03/19/17 08:59 Insulin Human Regular 250 units/ Sodium Chloride 252.5 ml @ 0 mls/hr Q24H IV 02/17/17 05:00 03/19/17 04:59 02/17/17 05:23 3.3 MLS/HR Norepinephrine Bitartrate 8 mg/ Dextrose 508 ml @ 0 mls/hr Q0M PRN IV 02/17/17 05:00 03/19/17 04:59 02/17/17 09:49 0.15 MLS/HR Amiodarone HCL/ Dextrose 200 ml @ 16.7 mls/hr [id number] IV 02/17/17 07:00 03/19/17 06:59 02/17/17 05:42 16.7 MLS/HR Glucose (Glucose 40% Gel) 15-30 GRAMS 15 GRAMS... UD PRN PO 02/17/17 05:15 03/19/17 05:14 Glucose (Glucose Chew Tab) 4-8 Tablets 4 Tabl... UD PRN PO 02/17/17 05:15 03/19/17 05:14 Dextrose (Dextrose 50% 50ML Syringe) 25-50ML OF 50% DW IV FOR... UD PRN IV 02/17/17 05:15 03/19/17 05:14 Glucagon (Glucagon Inj) 1 mg UD PRN SQ 02/17/17 05:15 03/19/17 05:14 Heparin Sodium/ Dextrose 500 ml @ 20 mls/hr Q24H PRN IV 02/17/17 05:30 03/19/17 05:29 02/17/17 05:46 20 MLS/HR Ipratropium [place] (Atrovent Hfa Inhaler) 4 puffs QIDR INH 02/17/17 08:00 03/19/17 07:59 02/17/17 08:00 4 PUFFS Albuterol (Ventolin Hfa Inhaler) 4 puffs QIDR INH 02/17/17 08:00 03/19/17 07:59 02/17/17 08:00 4 PUFFS Potassium Chloride 20 meq/ Prmx 100 ml @ 50 mls/hr Q2H IV 02/17/17 10:00 02/17/17 13:59 02/17/17 11:30 50 MLS/HR Potassium Phosphate 30 mmol/ Sodium Chloride 510 ml @ 127.5 mls/ hr Q4H IV 02/17/17 10:30 02/17/17 22:29 02/17/17 10:25 127.5 MLS/HR Description This is a 21 electrode continuous video EEG with a single channel dedicated to limited EKG. The electrodes were placed in accordance with the International 10- 20 system. At the start of this recording the patient was intubated, sedated, and unresponsive. Background was poorly organized with no well formed anterior to posterior gradient. Background was composed of predominantly low amplitude theta and delta frequencies with intermittent moderate amplitude 8-9 Hz alpha frequencies. There was no state changes or sleep transients. Interpretation This is an abnormal continuous video EEG secondary to moderate background disorganization and slowing. There was no electrographic seizures or epileptiform discharges. Clinical Correlation This EEG indicates a moderate encephalopathy of nonspecific etiology. Hypothermia protocol and sedating medications can contribute to encephalopathy.
--- NOTE | 2017-02-17 11:42 | Procedure Note ---
Procedure Note Date of Service Feb 17, 2017. Procedure Note Critical Care Medicine Procedure Date: 02/17/2017 Procedure: Thal-quick Tube Thoracostomy Pre-procedure Diagnosis: Traumatic pneumothorax right Post-procedure Diagnosis: same as above Prior to Procedure: Informed Consent: Emergent Attending Staff: Marina Haque D.O. Resident/Physician Lathe Set Up Person: Wilmer Rajan Indications: The patient is a 76-year-old male who had a cardiac arrest with return of spontaneous circulation. He has a traumatic pneumothorax on the right likely secondary to CPR and is on mechanical ventilation. The identity of the patient was confirmed and a bedside time out was performed. Description of Procedure: Description of Procedure: Following sterile skin prep and implementation of full sterile barrier precautions, the skin and subcutaneous tissue was infiltrated with local anesthetic. An introducer needle was instilled in the mid axillary line at the nipple line. Subcutaneous air was immediately aspirated and I was unable to carefully evaluate whether I was entering the chest cavity based on loss of resistance secondary to the subcutaneous air. Because of this I decided to proceed with a surgical thoracostomy tube. A 1.5 cm incision was made in the area of the needle insertion site through the skin. I bluntly dissected with my finger through the subcutaneous tissue down to the rib. Care was taken to insert the 28 [place] Thal-Quick chest tube over the superior portion of the rib margin. There was an initial return of air as well as serous pleural fluid. The tube was secured at 17 cm with 3-0 silk suture and connected to a water sealed collection system with 20 cm H2O suction. Placement was confirmed with a stat portable chest x-ray. Specimens: None Findings: 100 mL of serous fluid was evacuated Estimated blood loss: Trace Complications: Patient tolerated the procedure well
[2017-02-17 12:06] LABS: HEMOGLOBIN 15.5 g/dL (14.0-18.0); MEAN CELL VOLUME 97.5 fL (80-100); MEAN CORPUSCULAR HEMOGLOBIN 32.8 pg (25-34); MEAN CORPUSCULAR HGB CONC 33.7 g/dl (32-36); MEAN PLATELET VOLUME 11.3 fL (7.4-10.4); PLATELET COUNT 130 K/uL (130-400); RED CELL DISTRIBUTION WIDTH CV 14.9 % (11.5-14.5); RED CELL DISTRIBUTION WIDTH SD 52.8 fL (36.4-46.3); WHITE BLOOD COUNT 10.02 K/uL (4.8-10.8)
[2017-02-17 12:28] LABS: INR 1.1 (0.9-1.1); PTT PATIENT 43.7 SECONDS (21.0-31.0)
[2017-02-17 12:37] LABS: CALCIUM 7.9 mg/dl (8.5-10.1); CREATININE 1.25 mg/dl (0.60-1.40); PHOSPHORUS 2.8 mg/dl (2.5-4.9); POTASSIUM 3.9 mmol/L (3.5-5.1)
[2017-02-17 12:39] LABS: IG# 0.06 K/uL (0.00-0.02); LYMPH % 9.5 %; LYMPH ABS # 0.95 K/uL (1.2-3.4); MONO % 6.5 %; MONO ABS # 0.65 K/uL (0.11-0.59); NEUT % 83.4 %; NEUT ABS # 8.36 K/uL (1.4-6.5)
--- NOTE | 2017-02-17 13:05 | Progress Note ---
Medicine Progress Note Date & Time of Visit: Feb 17, 2017 at 12:24. Subjective Pt was seen and examined Pt is intubated and sedated on hypothermia protocol Objective Last 8 Hrs Date Time Temp Pulse Resp B/P (MAP) Pulse Ox O2 Delivery O2 Flow Rate FiO2 02/17/17 12:00 33.3 58 14 87/58 (68) 92 Mechanical Ventilator 35 106/49 (68) 02/17/17 12:00 35 Mechanical Ventilator 02/17/17 12:00 33.3 58 14 106/49 (68) 92 Mechanical Ventilator 35 02/17/17 12:00 35 02/17/17 11:35 60 02/17/17 11:00 33.8 60 14 81/61 (68) 93 Mechanical Ventilator 35 98/43 (61) 02/17/17 10:00 34.5 57 14 84/53 (63) 95 Mechanical Ventilator 30 97/43 (61) 02/17/17 10:00 34.5 57 14 97/43 (61) 95 Mechanical Ventilator 30 02/17/17 09:00 35.0 65 18 94/64 (74) 97 Mechanical Ventilator 40 140/55 (83) 02/17/17 08:00 40 02/17/17 08:00 40 Mechanical Ventilator 02/17/17 08:00 35.4 64 18 99/67 (78) 97 Mechanical Ventilator 40 113/49 (70) 02/17/17 07:46 35.5 58 18 106/47 (66) 97 02/17/17 07:45 35.5 31 18 110/50 (70) 97 02/17/17 07:31 35.6 61 18 108/48 (68) 97 02/17/17 07:30 35.6 57 18 118/44 (68) 96 02/17/17 07:27 60 02/17/17 07:16 35.6 57 18 300/300 (300) 95 02/17/17 07:15 35.6 53 18 111/-50 (3) 93 02/17/17 07:01 35.7 51 18 120/45 (70) 95 02/17/17 07:00 35.7 63 18 116/48 (70) 95 02/17/17 07:00 35.6 63 18 104/60 (75) 95 Mechanical Ventilator 50 02/17/17 06:45 35.8 53 18 105/44 (64) 95 02/17/17 06:00 35.9 71 18 120/71 (87) 98 Mechanical Ventilator 60 120/47 (71) 02/17/17 06:00 35.9 71 18 120/71 (87) 98 Mechanical Ventilator 60 120/47 (71) 02/17/17 06:00 35.9 71 18 120/71 (87) 98 Mechanical Ventilator 60 120/47 (71) 02/17/17 05:45 35.9 71 18 126/55 (78) 97 02/17/17 05:30 36.0 65 18 130/50 (76) 97 02/17/17 05:20 60 02/17/17 05:15 35.9 68 18 135/53 (80) 96 02/17/17 05:00 35.9 73 18 116/96 (103) 96 Mechanical Ventilator 100 143/60 (87) 02/17/17 05:00 36.0 68 18 14/13 (13) 100 02/17/17 04:48 60 02/17/17 04:45 36.0 64 18 98 02/17/17 04:30 36.0 64 18 90/53 (65) 100 Mechanical Ventilator 100 Physical Exam: General- Intubated and sedated/ on hypothermia protocol Head- atraumatic Eyes- PERRL ENT-Intubated Neck- no JVD Lungs- Decrease BS Heart- irregular rhythm Abdomen- normal bowel sounds Extremities- no calf tenderness Neuro-Sedated/intubated/on hypothermia protocol Skin- warm & dry Laboratory Results: Last 24 Hours Test 02/17/17 01:08 02/17/17 01:10 02/17/17 01:19 02/17/17 02:15 White Blood Count 8.17 K/uL Red Blood Count 4.95 M/uL Hemoglobin 16.4 g/dL Hematocrit 49.8 % Mean Corpuscular Volume 100.6 fL Mean Corpuscular Hemoglobin 33.1 pg Mean Corpuscular Hemoglobin Concent 32.9 g/dl Platelet Count 161 K/uL Mean Platelet Volume 12.8 fL RDW Standard Deviation 54.6 fL RDW Coefficient of Variation 15.0 % Nucleated RBC Absolute Count (auto) 0.10 K/uL Neutrophils % (Manual) 12.6 % Lymphocytes % (Manual) 46.0 % Monocytes % (Manual) 8.1 % Nucleated Red Blood Cells % 1.2 % Neutrophils # (Manual) 1.03 K/uL Total Absolute Neutrophils 1.03 K/uL Lymphocytes # (Manual) 3.76 K/uL Total Absolute Lymphocytes 6.48 K/uL Monocytes # (Manual) 0.66 K/uL Percent Large Granular Lymphocytes 33.3 % Absolute Large Granular Lymphocytes 2.72 K/uL Blood Smear Review Platelet Estimate DECREASED Red Blood Cell Morphology Unremarkable Prothrombin Time 10.7 SECONDS Prothromb Time International Ratio 1.0 Activated Partial Thromboplast Time 23.3 SECONDS Partial Thromboplastin Ratio 0.9 Sodium Level 139 mmol/L Potassium Level mmol/L 3.6 mmol/L Chloride Level 101 mmol/L Carbon Dioxide Level 29 mmol/L Anion Gap 9.0 mmol/L 14.0 mmol/L Blood Urea Nitrogen 23 mg/dl Creatinine 1.62 mg/dl Est Creatinine Clear Calc Drug Dose 43.9 ml/min Estimated GFR () 47.7 Estimated GFR (Non- 41.2 BUN/Creatinine Ratio 14.0 Random Glucose 285 mg/dl Calcium Level 8.5 mg/dl Magnesium Level mg/dl 3.4 mg/dl Total Creatine Kinase U/L 125 U/L Creatine Kinase MB 2.2 ng/ml Creatine Kinase MB Ratio Troponin I 0.407 ng/ml Bedside Hemoglobin 16.3 g/dl 15.0 g/dl Bedside Hematocrit 48 % 44 % Bedside Sodium 140 mEq/L 139 mEq/L Bedside Potassium 3.6 mEq/L 3.3 mEq/L Bedside Chloride 101 mEq/L Bedside Total CO2 30 mEq/l Bedside Blood Urea Nitrogen 30 mg/dl Bedside Creatinine 1.5 mg/dl Bedside Glucose (other) 279 mg/dl Bedside Ionized Calcium ([place]) 1.12 mmol/l Bedside Blood Gas pH (LAB) 6.86 Bedside Blood Gas pCO2 (LAB) > 115 mmHg Bedside Blood Gas pO2 (LAB) 133 mmHg Bedside Blood Gas HCO3 (LAB) 23 meq/L Bedside Blood Gas Total CO2 27 mEq/l Bedside Blood Gas Base Excess (LAB) -11.0 meq/L Bedside Blood Gas O2 Saturation 95.0 % Lactic Acid Level 5.9 mmol/L Test 02/17/17 04:51 02/17/17 07:19 02/17/17 08:00 02/17/17 08:07 Blood Gas Sample Site R Radial Bedside Blood Gas pH (LAB) 7.31 Bedside Blood Gas pCO2 (LAB) 62 mmHg Bedside Blood Gas pO2 (LAB) > 420 mmHg Bedside Blood Gas HCO3 (LAB) 32 meq/L Bedside Blood Gas Total CO2 34 mEq/l Bedside Blood Gas Base Excess (LAB) 5.0 meq/L Bedside Blood Gas O2 Saturation 100.0 % Ran Test Pass Oxygen Delivery Device Ventilator Bedside Oxygen Rate (breaths/min) 18 Blood Gas Minute Ventilation 9 Bedside FiO2 100 % Blood Gas Tidal Volume 550 Blood Gas PEEP 5 Bedside Glucose (other) 309 mg/dl 281 mg/dl Creatine Kinase MB Ratio Test 02/17/17 08:24 02/17/17 11:50 White Blood Count 12.10 K/uL 10.02 K/uL Red Blood Count 4.83 M/uL 4.72 M/uL Hemoglobin 15.8 g/dL 15.5 g/dL Hematocrit 47.2 % 46.0 % Mean Corpuscular Volume 97.7 fL 97.5 fL Mean Corpuscular Hemoglobin 32.7 pg 32.8 pg Mean Corpuscular Hemoglobin Concent 33.5 g/dl 33.7 g/dl Platelet Count 157 K/uL 130 K/uL Mean Platelet Volume 12.7 fL 11.3 fL Neutrophils (%) (Auto) 86.0 % Lymphocytes (%) (Auto) 6.7 % Monocytes (%) (Auto) 6.2 % Eosinophils (%) (Auto) 0.1 % Basophils (%) (Auto) 0.1 % Neutrophils # (Auto) 10.41 K/uL Lymphocytes # (Auto) 0.81 K/uL Monocytes # (Auto) 0.75 K/uL Eosinophils # (Auto) 0.01 K/uL Basophils # (Auto) 0.01 K/uL RDW Standard Deviation 53.7 fL 52.8 fL RDW Coefficient of Variation 15.0 % 14.9 % Immature Granulocyte % (Auto) 0.9 % Immature Granulocyte # (Auto) 0.11 K/uL Prothrombin Time 11.0 SECONDS Prothromb Time International Ratio 1.0 Activated Partial Thromboplast Time 29.8 SECONDS Partial Thromboplastin Ratio 1.1 Sodium Level 140 mmol/L Potassium Level 2.9 mmol/L Chloride Level 103 mmol/L Carbon Dioxide Level 27 mmol/L Anion Gap 10.0 mmol/L Blood Urea Nitrogen 27 mg/dl Creatinine 1.36 mg/dl Est Creatinine Clear Calc Drug Dose 52.3 ml/min Estimated GFR () 59.0 Estimated GFR (Non- 50.9 BUN/Creatinine Ratio 20.0 Random Glucose 266 mg/dl Calcium Level 8.5 mg/dl Phosphorus Level 1.4 mg/dl Magnesium Level 2.8 mg/dl Creatine Kinase MB 64.0 ng/ml Troponin I 10.500 ng/ml Thyroid Stimulating Hormone (TSH) 1.610 uIu/ml Free Thyroxine 0.89 ng/dl Date/Time Source Procedure Growth Status 02/17/17 04:00 Nasal MRSA DNA Surveillance Screen - Final Specimen Negative for MRSA by DNA Probe Complete Assessment & Plan Cardiac Arrest: Mostly secondary to Ventricular Arrhythmias Code Artic protocol was initiated in the ER Sedated and intubated on vent support Has been wearing Zoll Life Vest Interrogate the Zoll Life Vest Elevated troponin Continue Amiodarone, Heparin ggt Continue Hypothermia Protocol Vent management per ICU team Cardiology on board On dobutamine drip EEG showed no seizure activity CT head showed no acute intracranial abnormality Neurology on board Monitor electrolytes Continue monitor in the ICU ROBERTO: Creatine 1.62 on admission Baseline Creatine 1.07 Creatine 1.3 today Monitor renal function On IVF Right Traumatic pneumothorax S/P Chest tube insertion CXR today showed Interval placement of a right-sided chest tube with evacuation of the right-sided pneumothorax Elevated Lactate level Due to the Cardiac arrest received IVF Continue monitor Electrolytes imbalance K and phos replaced Monitor BMP DM II: ISS, accu checks DVT/GI Px: on Heparin ggt Pepcid Code Status DNR Disposition: Continue ICU monitor Consultants: cardio Neuro Current Inpatient Medications: Current Inpatient Medications Medications (Trade) Dose Ordered Sig/Shakira Route Start Time Stop Time Status Last Admin Dose Admin Midazolam HCl 250 ml @ 0 mls/hr Q0M PRN IV 02/17/17 02:14 03/19/17 02:13 02/17/17 04:18 8 MLS/HR Fentanyl Citrate 250 ml @ 0 mls/hr Q0M PRN IV 02/17/17 02:14 03/03/17 02:13 02/17/17 04:17 10 MLS/HR Acetaminophen (Tylenol Tab) 650 mg Q4H PRN PO 02/17/17 02:30 03/19/17 02:29 Ondansetron HCl (Zofran Inj) 4 mg Q6H PRN IV 02/17/17 02:30 03/19/17 02:29 Artificial Tears (Lacri-Lube Oph Oint) 1 appln Q2H PRN OPB 02/17/17 03:15 03/19/17 03:14 Famotidine 20 mg/ Syringe 5 ml @ 2.5 mls/min Q12H IV 02/17/17 06:00 03/19/17 05:59 02/17/17 05:26 2.5 MLS/MIN Buspirone HCl (BusPAR TAB) 60 mg ONE PRN NG 02/17/17 03:15 03/19/17 03:14 Meperidine HCl (Demerol Inj) 25 mg Q2H PRN IV 02/17/17 03:15 03/03/17 03:14 Dobutamine HCl 0 ml @ 0 mls/hr Q0M PRN IV 02/17/17 03:16 03/19/17 03:15 Insulin Aspart (novoLOG ASPART) SLIDING SCALE [facility] 02/17/17 08:00 03/19/17 08:59 Insulin Human Regular 250 units/ Sodium Chloride 252.5 ml @ 0 mls/hr Q24H IV 02/17/17 05:00 03/19/17 04:59 02/17/17 05:23 3.3 MLS/HR Norepinephrine Bitartrate 8 mg/ Dextrose 508 ml @ 0 mls/hr Q0M PRN IV 02/17/17 05:00 03/19/17 04:59 02/17/17 09:49 0.15 MLS/HR Amiodarone HCL/ Dextrose 200 ml @ 16.7 mls/hr [id number] IV 02/17/17 07:00 03/19/17 06:59 02/17/17 05:42 16.7 MLS/HR Glucose (Glucose 40% Gel) 15-30 GRAMS 15 GRAMS... UD PRN PO 02/17/17 05:15 03/19/17 05:14 Glucose (Glucose Chew Tab) 4-8 Tablets 4 Tabl... UD PRN PO 02/17/17 05:15 03/19/17 05:14 Dextrose (Dextrose 50% 50ML Syringe) 25-50ML OF 50% DW IV FOR... UD PRN IV 02/17/17 05:15 03/19/17 05:14 Glucagon (Glucagon Inj) 1 mg UD PRN SQ 02/17/17 05:15 03/19/17 05:14 Heparin Sodium/ Dextrose 500 ml @ 20 mls/hr Q24H PRN IV 02/17/17 05:30 03/19/17 05:29 02/17/17 05:46 20 MLS/HR Ipratropium [place] (Atrovent Hfa Inhaler) 4 puffs QIDR INH 02/17/17 08:00 03/19/17 07:59 02/17/17 11:35 4 PUFFS Albuterol (Ventolin Hfa Inhaler) 4 puffs QIDR INH 02/17/17 08:00 03/19/17 07:59 02/17/17 11:35 4 PUFFS Potassium Chloride 20 meq/ Prmx 100 ml @ 50 mls/hr Q2H IV 02/17/17 10:00 02/17/17 13:59 02/17/17 11:30 50 MLS/HR Potassium Phosphate 30 mmol/ Sodium Chloride 510 ml @ 127.5 mls/ hr Q4H IV 02/17/17 10:30 02/17/17 22:29 02/17/17 10:25 127.5 MLS/HR
[2017-02-17 13:40] LABS: PTT PATIENT 50.1 SECONDS (21.0-31.0)
[2017-02-17 13:50] LABS: CKMB 81.2 ng/ml (0.5-3.6)
[2017-02-17] MEDS ORDERED: NURSING VERBAL MED ORDER ONE ×2 (14:15→17:15)
[2017-02-17] MEDS: MAGNESIUM SULFATE 1GM / D5W 1 GM in PREMIXED IN D5W 100 ML IV SCH ×2 (15:48→16:21)
[2017-02-17 16:06] LABS: BASO % 0.1 %; BASO ABS # 0.01 K/uL (0-0.2); HEMOGLOBIN 15.2 g/dL (14.0-18.0); IG# 0.03 K/uL (0.00-0.02); LYMPH ABS # 0.93 K/uL (1.2-3.4); MEAN CELL VOLUME 97.2 fL (80-100); MEAN CORPUSCULAR HEMOGLOBIN 32.8 pg (25-34); MEAN CORPUSCULAR HGB CONC 33.8 g/dl (32-36); MEAN PLATELET VOLUME 11.4 fL (7.4-10.4); MONO % 7.7 %; NEUT % 82.9 %; NEUT ABS # 8.57 K/uL (1.4-6.5); PLATELET COUNT 121 K/uL (130-400); RED CELL DISTRIBUTION WIDTH CV 15.1 % (11.5-14.5); RED CELL DISTRIBUTION WIDTH SD 53.2 fL (36.4-46.3); WHITE BLOOD COUNT 10.34 K/uL (4.8-10.8)
[2017-02-17 16:23] LABS: INR 1.1 (0.9-1.1)
[2017-02-17 16:31] LABS: CALCIUM 7.8 mg/dl (8.5-10.1); CREATININE 1.23 mg/dl (0.60-1.40); POTASSIUM 3.6 mmol/L (3.5-5.1)
[2017-02-17 16:32] LABS: PHOSPHORUS 4.9 mg/dl (2.5-4.9)
[2017-02-17] MEDS ORDERED: DOPamine 400MG / 250ML D5W ONE (16:39)
--- NOTE | 2017-02-17 17:36 | Critical Care Progress Note ---
Critical Care Progress Note Date of Service Feb 17, 2017. Attending Dr. Porras Subjective the pt is sedated information and ROS is not obtainable. Objective remains vented , sedated, under TTM. Current SOFA Score SOFA Score Response (Comments) Value PaO2/FiO2 (mmHg) < 400 1 Platelets (x10) > 150 0 Bilirubin (mg/dL) 1.2 - 1.9 1 [place] Coma Score 15 0 Level of Hypotension Dopamine > 5 mcq or Epi < 0.1 mcq 3 Creatinine (mg/dL) < 1.2 0 Total 5 Assessment & Plan seen, examined independently, chart reviewed extensively throughout the day with the staff . in summary, 76, m, with CM ( EF 25%), on life vest, went into shockable rhythm and shocked few times by his device, presented with code blue and intubated, with initial rhythm , V Tach, shocked and started on amiodarone, and levophed, heparin drip for a fib. a/p: 1- cardiac arrest, Vtach, now in afib with bradycardia and multifocal PVC's. 2- acute resp failure secondary to above. 3- PTX , right sided , chest thoracostomy, appreciate Dr. Haque input. 4- no ROBERTO, mild liver congestion. 5- CM with EF 25%. on life vest. Plan: 1- continue fentanyl and versed. 2- due to ectopy and bradycardia, I will stop amiodarone drip and restart it later once BP allows. 3- dc dobutrex. 4- dopamine 10 mcg/kg/min. started for Bradycardia and BP support. 5- wean levo to off , keep MAP >70. 6- continue heparin drip for a fib. 7- chest tube to suction. will change to intermittent suction in am. 8- likely he will need a defibrillator implanted. 9- discussed with Dr. Greenfield, appreciate his input. 10- change the vent to a low VT while having PTX. 11- repeat ABG. 12- follow urine Output closely. 13- repeat cxr in am. discussed in details , will update the family once at the bed side. CCT 45 min additional to the above note from my colleague Dr. Haque. Consults & Procedures Consultants: cardiology Procedures: as previous. Data Medications: Current Inpatient Medications Medications (Trade) Dose Ordered Sig/Shakira Route Start Time Stop Time Status Last Admin Dose Admin Midazolam HCl 250 ml @ 0 mls/hr Q0M PRN IV 02/17/17 02:14 03/19/17 02:13 02/17/17 16:20 20 MLS/HR Fentanyl Citrate 250 ml @ 0 mls/hr Q0M PRN IV 02/17/17 02:14 03/03/17 02:13 02/17/17 12:53 40 MLS/HR Acetaminophen (Tylenol Tab) 650 mg Q4H PRN PO 02/17/17 02:30 03/19/17 02:29 Ondansetron HCl (Zofran Inj) 4 mg Q6H PRN IV 02/17/17 02:30 03/19/17 02:29 Artificial Tears (Lacri-Lube Oph Oint) 1 appln Q2H PRN OPB 02/17/17 03:15 03/19/17 03:14 Famotidine 20 mg/ Syringe 5 ml @ 2.5 mls/min Q12H IV 02/17/17 06:00 03/19/17 05:59 02/17/17 05:26 2.5 MLS/MIN Buspirone HCl (BusPAR TAB) 60 mg ONE PRN NG 02/17/17 03:15 03/19/17 03:14 Meperidine HCl (Demerol Inj) 25 mg Q2H PRN IV 02/17/17 03:15 03/03/17 03:14 Insulin Aspart (novoLOG ASPART) SLIDING SCALE [facility] 02/17/17 08:00 03/19/17 08:59 Insulin Human Regular 250 units/ Sodium Chloride 252.5 ml @ 0 mls/hr Q24H IV 02/17/17 05:00 03/19/17 04:59 02/17/17 05:23 3.3 MLS/HR Norepinephrine Bitartrate 8 mg/ Dextrose 508 ml @ 0 mls/hr Q0M PRN IV 02/17/17 05:00 03/19/17 04:59 02/17/17 14:59 97.9 MLS/HR Glucose (Glucose 40% Gel) 15-30 GRAMS 15 GRAMS... UD PRN PO 02/17/17 05:15 03/19/17 05:14 Glucose (Glucose Chew Tab) 4-8 Tablets 4 Tabl... UD PRN PO 02/17/17 05:15 03/19/17 05:14 Dextrose (Dextrose 50% 50ML Syringe) 25-50ML OF 50% DW IV FOR... UD PRN IV 02/17/17 05:15 03/19/17 05:14 Glucagon (Glucagon Inj) 1 mg UD PRN SQ 02/17/17 05:15 03/19/17 05:14 Heparin Sodium/ Dextrose 500 ml @ 20 mls/hr Q24H PRN IV 02/17/17 05:30 03/19/17 05:29 02/17/17 05:46 20 MLS/HR Ipratropium [place] (Atrovent Hfa Inhaler) 4 puffs QIDR INH 02/17/17 08:00 03/19/17 07:59 02/17/17 14:34 4 PUFFS Albuterol (Ventolin Hfa Inhaler) 4 puffs QIDR INH 02/17/17 08:00 03/19/17 07:59 02/17/17 14:34 4 PUFFS Dopamine HCl/ Dextrose 250 ml @ 0 mls/hr Q0M PRN IV 02/17/17 16:13 03/19/17 16:12 Potassium Chloride 20 meq/ Prmx 100 ml @ 50 mls/hr Q2H IV 02/17/17 17:30 02/17/17 21:29 I & O: 24-Hour Column 02/18/17 08:00 Intake Total 1715 ml Output Total 461 ml Balance 1254 ml Vital Signs: Date Time Temp Pulse Resp B/P (MAP) Pulse Ox O2 Delivery O2 Flow Rate FiO2 02/17/17 17:00 32.8 62 16 113/55 (74) 90 Mechanical Ventilator 35 130/47 (74) 02/17/17 16:00 35 Mechanical Ventilator 02/17/17 16:00 32.8 54 16 101/49 (66) 93 Mechanical Ventilator 35 100/49 (66) 02/17/17 16:00 32.8 54 16 100/49 (66) 93 Mechanical Ventilator 35 02/17/17 16:00 35 02/17/17 15:00 32.8 54 16 110/58 (75) 92 Mechanical Ventilator 35 115/49 (71) 02/17/17 14:00 32.9 58 16 116/50 (72) 93 Mechanical Ventilator 35 02/17/17 14:00 32.9 58 16 109/56 (73) 93 Mechanical Ventilator 35 116/50 (72) 02/17/17 13:45 30 02/17/17 13:00 33.1 52 14 101/53 (69) 91 Mechanical Ventilator 35 108/48 (68) 02/17/17 12:00 33.3 58 14 87/58 (68) 92 Mechanical Ventilator 35 106/49 (68) 02/17/17 12:00 35 Mechanical Ventilator 02/17/17 12:00 33.3 58 14 106/49 (68) 92 Mechanical Ventilator 35 02/17/17 12:00 35 02/17/17 11:35 60 02/17/17 11:00 33.8 60 14 81/61 (68) 93 Mechanical Ventilator 35 98/43 (61) 02/17/17 10:00 34.5 57 14 84/53 (63) 95 Mechanical Ventilator 30 97/43 (61) 02/17/17 10:00 34.5 57 14 97/43 (61) 95 Mechanical Ventilator 30 02/17/17 09:00 35.0 65 18 94/64 (74) 97 Mechanical Ventilator 40 140/55 (83) 02/17/17 08:00 40 02/17/17 08:00 40 Mechanical Ventilator 02/17/17 08:00 35.4 64 18 99/67 (78) 97 Mechanical Ventilator 40 113/49 (70) 02/17/17 07:46 35.5 58 18 106/47 (66) 97 02/17/17 07:45 35.5 31 18 110/50 (70) 97 02/17/17 07:31 35.6 61 18 108/48 (68) 97 02/17/17 07:30 35.6 57 18 118/44 (68) 96 02/17/17 07:27 60 02/17/17 07:16 35.6 57 18 300/300 (300) 95 02/17/17 07:15 35.6 53 18 111/-50 (3) 93 02/17/17 07:01 35.7 51 18 120/45 (70) 95 02/17/17 07:00 35.7 63 18 116/48 (70) 95 02/17/17 07:00 35.6 63 18 104/60 (75) 95 Mechanical Ventilator 50 02/17/17 06:45 35.8 53 18 105/44 (64) 95 02/17/17 06:00 35.9 71 18 120/71 (87) 98 Mechanical Ventilator 60 120/47 (71) 02/17/17 06:00 35.9 71 18 120/71 (87) 98 Mechanical Ventilator 60 120/47 (71) 02/17/17 06:00 35.9 71 18 120/71 (87) 98 Mechanical Ventilator 60 120/47 (71) 02/17/17 05:45 35.9 71 18 126/55 (78) 97 02/17/17 05:30 36.0 65 18 130/50 (76) 97 02/17/17 05:20 60 02/17/17 05:15 35.9 68 18 135/53 (80) 96 02/17/17 05:00 35.9 73 18 116/96 (103) 96 Mechanical Ventilator 100 143/60 (87) 02/17/17 05:00 36.0 68 18 14/13 (13) 100 02/17/17 04:48 60 02/17/17 04:45 36.0 64 18 98 02/17/17 04:30 36.0 64 18 90/53 (65) 100 Mechanical Ventilator 100 02/17/17 04:15 36.0 68 18 106/70 (82) 99 Mechanical Ventilator 100 02/17/17 04:00 35.8 65 18 112/73 (86) 99 Mechanical Ventilator 100 02/17/17 04:00 36.0 76 20 104/66 94 Mechanical Ventilator 100 02/17/17 04:00 35.8 65 18 112/73 (86) 99 Mechanical Ventilator 100 02/17/17 03:45 100 02/17/17 03:07 69 02/17/17 02:31 101/72 02/17/17 02:26 86 18 102/70 97 02/17/17 02:21 88/57 02/17/17 02:19 /02/17/17 02:17 86/02/17/17 02:16 80 18 97 02/17/17 02:15 /02/17/17 02:13 99/02/17/17 02:11 /02/17/17 02:09 93/02/17/17 02:07 114/61 02/17/17 02:06 92 02/17/17 02:05 100 02/17/17 02:05 117/75 02/17/17 02:02 89/42 02/17/17 01:59 115/70 02/17/17 01:57 113/61 02/17/17 01:56 138 02/17/17 01:55 104/84 02/17/17 01:53 81/56 02/17/17 01:51 98/68 02/17/17 01:49 94/63 02/17/17 01:47 111/62 02/17/17 01:46 104 20 02/17/17 01:41 120 101/55 02/17/17 01:40 20 02/17/17 01:39 96/60 02/17/17 01:37 102/62 02/17/17 01:35 118 100/51 98 02/17/17 01:33 88/52 02/17/17 01:31 02/17/17 01:30 75 18 95 02/17/17 01:30 127 02/17/17 01:29 110/65 02/17/17 01:26 81/50 02/17/17 01:25 52 21 95 02/17/17 01:20 36.7 02/17/17 01:20 82 18 84 02/17/17 01:19 84/63 02/17/17 01:17 102/70 02/17/17 01:15 111 19 83/65 94 02/17/17 01:13 28 02/17/17 01:13 58 02/17/17 01:13 94/58 02/17/17 01:10 87/58 02/17/17 01:07 93/58 02/17/17 01:06 112/67 02/17/17 01:05 59 26 02/17/17 01:01 65 02/17/17 01:00 72 15 115/67 02/17/17 00:57 59/33 02/17/17 00:52 68 02/17/17 00:50 43 02/17/17 00:49 41 02/17/17 00:48 88 02/17/17 00:43 225 Laboratory Results: Last 24 Hours Test 02/17/17 01:08 02/17/17 01:10 02/17/17 01:19 02/17/17 02:15 White Blood Count 8.17 K/uL Red Blood Count 4.95 M/uL Hemoglobin 16.4 g/dL Hematocrit 49.8 % Mean Corpuscular Volume 100.6 fL Mean Corpuscular Hemoglobin 33.1 pg Mean Corpuscular Hemoglobin Concent 32.9 g/dl Platelet Count 161 K/uL Mean Platelet Volume 12.8 fL RDW Standard Deviation 54.6 fL RDW Coefficient of Variation 15.0 % Nucleated RBC Absolute Count (auto) 0.10 K/uL Neutrophils % (Manual) 12.6 % Lymphocytes % (Manual) 46.0 % Monocytes % (Manual) 8.1 % Nucleated Red Blood Cells % 1.2 % Neutrophils # (Manual) 1.03 K/uL Total Absolute Neutrophils 1.03 K/uL Lymphocytes # (Manual) 3.76 K/uL Total Absolute Lymphocytes 6.48 K/uL Monocytes # (Manual) 0.66 K/uL Percent Large Granular Lymphocytes 33.3 % Absolute Large Granular Lymphocytes 2.72 K/uL Blood Smear Review Platelet Estimate DECREASED Red Blood Cell Morphology Unremarkable Prothrombin Time 10.7 SECONDS Prothromb Time International Ratio 1.0 Activated Partial Thromboplast Time 23.3 SECONDS Partial Thromboplastin Ratio 0.9 Sodium Level 139 mmol/L Potassium Level mmol/L 3.6 mmol/L Chloride Level 101 mmol/L Carbon Dioxide Level 29 mmol/L Anion Gap 9.0 mmol/L 14.0 mmol/L Blood Urea Nitrogen 23 mg/dl Creatinine 1.62 mg/dl Est Creatinine Clear Calc Drug Dose 43.9 ml/min Estimated GFR () 47.7 Estimated GFR (Non- 41.2 BUN/Creatinine Ratio 14.0 Random Glucose 285 mg/dl Calcium Level 8.5 mg/dl Magnesium Level mg/dl 3.4 mg/dl Total Creatine Kinase U/L 125 U/L Creatine Kinase MB 2.2 ng/ml Creatine Kinase MB Ratio Troponin I 0.407 ng/ml Bedside Hemoglobin 16.3 g/dl 15.0 g/dl Bedside Hematocrit 48 % 44 % Bedside Sodium 140 mEq/L 139 mEq/L Bedside Potassium 3.6 mEq/L 3.3 mEq/L Bedside Chloride 101 mEq/L Bedside Total CO2 30 mEq/l Bedside Blood Urea Nitrogen 30 mg/dl Bedside Creatinine 1.5 mg/dl Bedside Glucose (other) 279 mg/dl Bedside Ionized Calcium ([place]) 1.12 mmol/l Bedside Blood Gas pH (LAB) 6.86 Bedside Blood Gas pCO2 (LAB) > 115 mmHg Bedside Blood Gas pO2 (LAB) 133 mmHg Bedside Blood Gas HCO3 (LAB) 23 meq/L Bedside Blood Gas Total CO2 27 mEq/l Bedside Blood Gas Base Excess (LAB) -11.0 meq/L Bedside Blood Gas O2 Saturation 95.0 % Lactic Acid Level 5.9 mmol/L Test 02/17/17 04:51 02/17/17 07:19 02/17/17 08:00 02/17/17 08:07 Blood Gas Sample Site R Radial Bedside Blood Gas pH (LAB) 7.31 Bedside Blood Gas pCO2 (LAB) 62 mmHg Bedside Blood Gas pO2 (LAB) > 420 mmHg Bedside Blood Gas HCO3 (LAB) 32 meq/L Bedside Blood Gas Total CO2 34 mEq/l Bedside Blood Gas Base Excess (LAB) 5.0 meq/L Bedside Blood Gas O2 Saturation 100.0 % Ran Test Pass Oxygen Delivery Device Ventilator Bedside Oxygen Rate (breaths/min) 18 Blood Gas Minute Ventilation 9 Bedside FiO2 100 % Blood Gas Tidal Volume 550 Blood Gas PEEP 5 Bedside Glucose (other) 309 mg/dl 281 mg/dl Creatine Kinase MB Ratio Test 02/17/17 08:24 02/17/17 09:10 02/17/17 10:14 02/17/17 11:07 White Blood Count 12.10 K/uL Red Blood Count 4.83 M/uL Hemoglobin 15.8 g/dL Hematocrit 47.2 % Mean Corpuscular Volume 97.7 fL Mean Corpuscular Hemoglobin 32.7 pg Mean Corpuscular Hemoglobin Concent 33.5 g/dl Platelet Count 157 K/uL Mean Platelet Volume 12.7 fL Neutrophils (%) (Auto) 86.0 % Lymphocytes (%) (Auto) 6.7 % Monocytes (%) (Auto) 6.2 % Eosinophils (%) (Auto) 0.1 % Basophils (%) (Auto) 0.1 % Neutrophils # (Auto) 10.41 K/uL Lymphocytes # (Auto) 0.81 K/uL Monocytes # (Auto) 0.75 K/uL Eosinophils # (Auto) 0.01 K/uL Basophils # (Auto) 0.01 K/uL RDW Standard Deviation 53.7 fL RDW Coefficient of Variation 15.0 % Immature Granulocyte % (Auto) 0.9 % Immature Granulocyte # (Auto) 0.11 K/uL Prothrombin Time 11.0 SECONDS Prothromb Time International Ratio 1.0 Activated Partial Thromboplast Time 29.8 SECONDS Partial Thromboplastin Ratio 1.1 Sodium Level 140 mmol/L Potassium Level 2.9 mmol/L Chloride Level 103 mmol/L Carbon Dioxide Level 27 mmol/L Anion Gap 10.0 mmol/L Blood Urea Nitrogen 27 mg/dl Creatinine 1.36 mg/dl Est Creatinine Clear Calc Drug Dose 52.3 ml/min Estimated GFR () 59.0 Estimated GFR (Non- 50.9 BUN/Creatinine Ratio 20.0 Random Glucose 266 mg/dl Calcium Level 8.5 mg/dl Phosphorus Level 1.4 mg/dl Magnesium Level 2.8 mg/dl Creatine Kinase MB 64.0 ng/ml Troponin I 10.500 ng/ml Thyroid Stimulating Hormone (TSH) 1.610 uIu/ml Free Thyroxine 0.89 ng/dl Bedside Glucose (other) 254 mg/dl 235 mg/dl 217 mg/dl Test 02/17/17 11:50 02/17/17 11:57 02/17/17 12:53 02/17/17 13:03 White Blood Count 10.02 K/uL Red Blood Count 4.72 M/uL Hemoglobin 15.5 g/dL Hematocrit 46.0 % Mean Corpuscular Volume 97.5 fL Mean Corpuscular Hemoglobin 32.8 pg Mean Corpuscular Hemoglobin Concent 33.7 g/dl Platelet Count 130 K/uL Mean Platelet Volume 11.3 fL Neutrophils (%) (Auto) 83.4 % Lymphocytes (%) (Auto) 9.5 % Monocytes (%) (Auto) 6.5 % Eosinophils (%) (Auto) 0.0 % Basophils (%) (Auto) 0.0 % Neutrophils # (Auto) 8.36 K/uL Lymphocytes # (Auto) 0.95 K/uL Monocytes # (Auto) 0.65 K/uL Eosinophils # (Auto) 0.00 K/uL Basophils # (Auto) 0.00 K/uL RDW Standard Deviation 52.8 fL RDW Coefficient of Variation 14.9 % Immature Granulocyte % (Auto) 0.6 % Immature Granulocyte # (Auto) 0.06 K/uL Prothrombin Time 11.4 SECONDS Prothromb Time International Ratio 1.1 Activated Partial Thromboplast Time 43.7 SECONDS 50.1 SECONDS Partial Thromboplastin Ratio 1.7 1.9 Sodium Level 139 mmol/L Potassium Level 3.9 mmol/L Chloride Level 104 mmol/L Carbon Dioxide Level 28 mmol/L Anion Gap 7.0 mmol/L Blood Urea Nitrogen 26 mg/dl Creatinine 1.25 mg/dl Est Creatinine Clear Calc Drug Dose 56.9 ml/min Estimated GFR () 65.3 Estimated GFR (Non- 56.4 BUN/Creatinine Ratio 20.6 Random Glucose 202 mg/dl Calcium Level 7.9 mg/dl Phosphorus Level 2.8 mg/dl Magnesium Level 2.5 mg/dl Bedside Glucose (other) 204 mg/dl 198 mg/dl Creatine Kinase MB 81.2 ng/ml Creatine Kinase MB Ratio Troponin I 11.000 ng/ml Test 02/17/17 13:57 02/17/17 15:00 02/17/17 15:56 02/17/17 15:57 Bedside Glucose (other) 193 mg/dl 188 mg/dl 184 mg/dl White Blood Count 10.34 K/uL Red Blood Count 4.63 M/uL Hemoglobin 15.2 g/dL Hematocrit 45.0 % Mean Corpuscular Volume 97.2 fL Mean Corpuscular Hemoglobin 32.8 pg Mean Corpuscular Hemoglobin Concent 33.8 g/dl Platelet Count 121 K/uL Mean Platelet Volume 11.4 fL Neutrophils (%) (Auto) 82.9 % Lymphocytes (%) (Auto) 9.0 % Monocytes (%) (Auto) 7.7 % Eosinophils (%) (Auto) 0.0 % Basophils (%) (Auto) 0.1 % Neutrophils # (Auto) 8.57 K/uL Lymphocytes # (Auto) 0.93 K/uL Monocytes # (Auto) 0.80 K/uL Eosinophils # (Auto) 0.00 K/uL Basophils # (Auto) 0.01 K/uL RDW Standard Deviation 53.2 fL RDW Coefficient of Variation 15.1 % Immature Granulocyte % (Auto) 0.3 % Immature Granulocyte # (Auto) 0.03 K/uL Prothrombin Time 11.5 SECONDS Prothromb Time International Ratio 1.1 Activated Partial Thromboplast Time 63.0 SECONDS Partial Thromboplastin Ratio 2.4 Sodium Level 139 mmol/L Potassium Level 3.6 mmol/L Chloride Level 103 mmol/L Carbon Dioxide Level 26 mmol/L Anion Gap 9.0 mmol/L Blood Urea Nitrogen 27 mg/dl Creatinine 1.23 mg/dl Est Creatinine Clear Calc Drug Dose 57.8 ml/min Estimated GFR () 66.6 Estimated GFR (Non- 57.5 BUN/Creatinine Ratio 21.7 Random Glucose 186 mg/dl Calcium Level 7.8 mg/dl Phosphorus Level 4.9 mg/dl Magnesium Level 2.7 mg/dl
[2017-02-17] MEDS ORDERED: FUROSEMIDE 40 MG/4 ML VIAL ONE (18:13)
[2017-02-17] MEDS ORDERED: FUROSEMIDE INJ 40 MG in SYRINGE 0 ML IV SCH (18:30)
[2017-02-17 20:14] LABS: HEMATOCRIT 46.9 % (42-52); HEMOGLOBIN 15.9 g/dL (14.0-18.0); MEAN CELL VOLUME 96.9 fL (80-100); MEAN CORPUSCULAR HEMOGLOBIN 32.9 pg (25-34); MEAN CORPUSCULAR HGB CONC 33.9 g/dl (32-36); MEAN PLATELET VOLUME 11.3 fL (7.4-10.4); PLATELET COUNT 127 K/uL (130-400); RED CELL DISTRIBUTION WIDTH CV 14.9 % (11.5-14.5); RED CELL DISTRIBUTION WIDTH SD 52.8 fL (36.4-46.3); WHITE BLOOD COUNT 9.32 K/uL (4.8-10.8)
[2017-02-17 20:40] LABS: INR 1.1 (0.9-1.1)
[2017-02-17 20:47] LABS: PTT PATIENT 75.3 SECONDS (21.0-31.0)
[2017-02-17 20:52] LABS: BASO % 0.1 %; BASO ABS # 0.01 K/uL (0-0.2); IG# 0.02 K/uL (0.00-0.02); LYMPH % 8.4 %; LYMPH ABS # 0.78 K/uL (1.2-3.4); MONO % 5.6 %; MONO ABS # 0.52 K/uL (0.11-0.59); NEUT % 85.7 %; NEUT ABS # 7.99 K/uL (1.4-6.5)
[2017-02-17 20:55] LABS: CALCIUM 7.8 mg/dl (8.5-10.1); CREATININE 1.43 mg/dl (0.60-1.40); PHOSPHORUS 4.6 mg/dl (2.5-4.9); POTASSIUM 4.5 mmol/L (3.5-5.1)
[2017-02-17 21:02] LABS: CKMB 89.8 ng/ml (0.5-3.6)
[2017-02-17] MEDS: DOPAMINE 400 MG IV PRN (23:07)
[2017-02-17] MEDS: [UNRECOGNIZED DRUG - OTHER] IV PRN (23:07)
[2017-02-17] MEDS: DEXTROSE 50% 50 ML SYR IV PRN (23:17)
[2017-02-18] VITALS (22 sets, daily range): BP systolic 84–111; BP diastolic 45–65; PULSE 56–78; TEMP 34–37.9; O2SAT 91–96
[2017-02-18 00:05] LABS: BASO % 0.1 %; BASO ABS # 0.01 K/uL (0-0.2); EOS % 0.1 %; EOS ABS # 0.01 K/uL (0-0.5); HEMATOCRIT 45.5 % (42-52); HEMOGLOBIN 15.4 g/dL (14.0-18.0); IG# 0.03 K/uL (0.00-0.02); LYMPH % 11.9 %; MEAN CELL VOLUME 96.8 fL (80-100); MEAN CORPUSCULAR HEMOGLOBIN 32.8 pg (25-34); MEAN CORPUSCULAR HGB CONC 33.8 g/dl (32-36); MEAN PLATELET VOLUME 10.6 fL (7.4-10.4); MONO ABS # 0.65 K/uL (0.11-0.59); NEUT % 80.6 %; NEUT ABS # 7.44 K/uL (1.4-6.5); PLATELET COUNT 109 K/uL (130-400); WHITE BLOOD COUNT 9.24 K/uL (4.8-10.8)
[2017-02-18 00:23] LABS: INR 1.1 (0.9-1.1)
[2017-02-18 00:26] LABS: CALCIUM 7.6 mg/dl (8.5-10.1); CREATININE 1.56 mg/dl (0.60-1.40); PHOSPHORUS 5.2 mg/dl (2.5-4.9)
[2017-02-18 00:27] LABS: PTT PATIENT 66.2 SECONDS (21.0-31.0)
[2017-02-18] MEDS: FENTANYL 1250MCG/250ML NSS 250 ML IV PRN ×4 (01:15→19:27)
[2017-02-18] MEDS: HEPARIN 25,000 UNIT/500ML D5W 500 ML IV PRN (01:17)
[2017-02-18] MEDS: MIDAZOLAM 125MG/250ML D5W 250 ML IV PRN ×2 (03:33→19:27)
[2017-02-18 04:21] LABS: HEMATOCRIT 46.3 % (42-52); HEMOGLOBIN 15.8 g/dL (14.0-18.0); MEAN CELL VOLUME 96.1 fL (80-100); MEAN CORPUSCULAR HEMOGLOBIN 32.8 pg (25-34); MEAN CORPUSCULAR HGB CONC 34.1 g/dl (32-36); MEAN PLATELET VOLUME 11.4 fL (7.4-10.4); PLATELET COUNT 109 K/uL (130-400); RED CELL DISTRIBUTION WIDTH CV 14.9 % (11.5-14.5); RED CELL DISTRIBUTION WIDTH SD 52.4 fL (36.4-46.3); WHITE BLOOD COUNT 8.01 K/uL (4.8-10.8)
[2017-02-18 04:39] LABS: ALBUMIN 2.7 gm/dl (3.4-5.0); CALCIUM 7.6 mg/dl (8.5-10.1); CREATININE 1.59 mg/dl (0.60-1.40); INR 1.1 (0.9-1.1)
[2017-02-18 04:40] LABS: PHOSPHORUS 5.4 mg/dl (2.5-4.9); TOTAL PROTEIN 5.8 gm/dl (6.4-8.2)
[2017-02-18 04:55] LABS: PTT PATIENT 70.7 SECONDS (21.0-31.0)
[2017-02-18] MEDS: INSULIN REGULAR 250 UNITS in SODIUM CHLORIDE 0.9% 250ML 250 ML IV SCH (05:14)
[2017-02-18] MEDS: FAMOTIDINE IV INJ 20 MG in SYRINGE 3 ML IV SCH ×2 (05:15→17:45)
[2017-02-18] MEDS: [UNRECOGNIZED DRUG - OTHER] IV PRN ×3 (05:15→17:46)
[2017-02-18] MEDS: DOPAMINE 400 MG IV PRN ×3 (05:15→17:46)
--- NOTE | 2017-02-18 07:18 | DIAGNOSTIC IMAGING REPORT ---
CHEST ONE VIEW PORTABLE CLINICAL HISTORY: 76 years-old Male presenting with follow up PTX. TECHNIQUE: Portable semiupright AP view of the chest was obtained. COMPARISON: 02/17/2017. FINDINGS: Endotracheal tube has been retracted now terminating in the mid thoracic trachea approximate 4 cm from the mickie. Right internal jugular central venous catheter terminates in the upper SVC. Nasogastric tube descends below the diaphragm. Large bore right pleural drain terminates in the paramediastinal right upper hemithorax. Atherosclerosis of the aortic arch. Prominence of the cardiac silhouette, unchanged. Peripheral decreased perihilar hazy opacities with increased consolidation in the right mid and lower lung. Small left pleural effusion. Increased size of the small right apical and anterior pneumothorax. Extensive subcutaneous emphysema along the right lateral chest wall. Degenerative changes of the thoracic spine. Upper abdomen normal. IMPRESSION: 1. Interval increase size of the small right apical and anterior pneumothorax despite the presence of the large bore right pleural drain. This could suggest an air leak. 2. Decreased pulmonary edema though new right mid and basilar consolidation is apparent. This may represent atelectasis or fluid within the fissures. 3. Small left pleural effusion. 4. Appropriately positioned lines and tubes. Electronically signed by: Andrea Rice M.D. 02/18/2017 7:16 AM Dictated Date/Time: 02/18/2017 7:11 AM
[2017-02-18] MEDS: ALBUTEROL HFA 8 GM INHALER INH SCH ×4 (07:34→19:05)
[2017-02-18] MEDS: IPRATROPIUM BROMIDE HFA INHALER INH SCH ×4 (07:34→19:05)
--- NOTE | 2017-02-18 07:35 | EEG Procedure Note ---
EEG Procedure Note Date of Service Feb 17, 2017. Start / End Times Start Time: 02/17/2017 at 11:11 AM End Time: 02/18/2017 at 7:27 AM Referring Physician Thelma CARL History This is a 76-year-old male who presented with cardiac arrest and hypothermia protocol. Continuous video EEG for further evaluation and monitoring of subclinical seizures during cooling protocol. Home Medication List Scheduled Aspirin (Aspirin Ec), 81 MG PO HS Home O2 Therapy (Oxygen), 2 LITERS NA HS Ipratropium-Albuterol (Duoneb), 1 TREATMENT INH TID Losartan Potassium (Cozaar), 25 MG PO QPM Metoprolol Succinate (Toprol Xl), 25 MG PO QAM Rosuvastatin Calcium (Crestor), 5 MG PO QAM Spironolactone (Aldactone), 25 MG PO QAM Torsemide (Demadex), 20 MG PO QAM Scheduled PRN Ipratropium-Albuterol (Combivent Respimat), 1 PUFFS INH QID PRN for Wheezing Omeprazole (Prilosec), 20 MG PO QAM PRN for Heartburn Sildenafil Citrate (Viagra), 25 MG PO UD PRN for intercourse Sucralfate (Carafate), 1 GM PO ACHS PRN for Heartburn Inpatient Medication List Current Inpatient Medications Medications (Trade) Dose Ordered Sig/Shakira Route Start Time Stop Time Status Last Admin Dose Admin Midazolam HCl 250 ml @ 0 mls/hr Q0M PRN IV 02/17/17 02:14 03/19/17 02:13 02/18/17 03:33 20 MLS/HR Fentanyl Citrate 250 ml @ 0 mls/hr Q0M PRN IV 02/17/17 02:14 03/03/17 02:13 02/18/17 01:15 40 MLS/HR Acetaminophen (Tylenol Tab) 650 mg Q4H PRN PO 02/17/17 02:30 03/19/17 02:29 Ondansetron HCl (Zofran Inj) 4 mg Q6H PRN IV 02/17/17 02:30 03/19/17 02:29 Artificial Tears (Lacri-Lube Oph Oint) 1 appln Q2H PRN OPB 02/17/17 03:15 03/19/17 03:14 Famotidine 20 mg/ Syringe 5 ml @ 2.5 mls/min Q12H IV 02/17/17 06:00 03/19/17 05:59 02/18/17 05:15 2.5 MLS/MIN Buspirone HCl (BusPAR TAB) 60 mg ONE PRN NG 02/17/17 03:15 03/19/17 03:14 02/17/17 19:46 60 MG Meperidine HCl (Demerol Inj) 25 mg Q2H PRN IV 02/17/17 03:15 03/03/17 03:14 02/17/17 23:06 25 MG Insulin Aspart (novoLOG ASPART) SLIDING SCALE HS SC 02/17/17 08:00 03/19/17 08:59 Insulin Human Regular 250 units/ Sodium Chloride 252.5 ml @ 0 mls/hr Q24H IV 02/17/17 05:00 03/19/17 04:59 02/18/17 05:14 0.8 MLS/HR Norepinephrine Bitartrate 8 mg/ Dextrose 508 ml @ 0 mls/hr Q0M PRN IV 02/17/17 05:00 03/19/17 04:59 02/17/17 14:59 97.9 MLS/HR Glucose (Glucose 40% Gel) 15-30 GRAMS 15 GRAMS... UD PRN PO 02/17/17 05:15 03/19/17 05:14 Glucose (Glucose Chew Tab) 4-8 Tablets 4 Tabl... UD PRN PO 02/17/17 05:15 03/19/17 05:14 Dextrose (Dextrose 50% 50ML Syringe) 25-50ML OF 50% DW IV FOR... UD PRN IV 02/17/17 05:15 03/19/17 05:14 02/17/17 23:17 25 ML Glucagon (Glucagon Inj) 1 mg UD PRN SQ 02/17/17 05:15 03/19/17 05:14 Heparin Sodium/ Dextrose 500 ml @ 16 mls/hr Q24H PRN IV 02/17/17 05:30 03/19/17 05:29 02/18/17 01:17 18 MLS/HR Ipratropium [place] (Atrovent Hfa Inhaler) 4 puffs QIDR INH 02/17/17 08:00 03/19/17 07:59 02/17/17 20:03 4 PUFFS Albuterol (Ventolin Hfa Inhaler) 4 puffs QIDR INH 02/17/17 08:00 03/19/17 07:59 02/17/17 20:03 4 PUFFS Dopamine HCl/ Dextrose 250 ml @ 0 mls/hr Q0M PRN IV 02/17/17 16:13 03/19/17 16:12 02/18/17 05:15 35.9 MLS/HR Heparin Sodium (Porcine) (Heparin 10 Unit/ ml 5 ml Flush) 5 ml PRN PRN FLUSH 02/18/17 00:15 03/20/17 00:14 Description This is a 21 electrode continuous video EEG with a single channel dedicated to limited EKG. The electrodes were placed in accordance with the International 10- 20 system. At the start of this recording the patient was intubated, sedated, and unresponsive. Background was poorly organized with no well formed anterior to posterior gradient. Background was composed of predominantly low to moderate amplitude 5-6Hz theta delta frequencies with intermittent delta and alpha frequencies. There was no state changes or sleep transients. Interpretation This is an abnormal continuous video EEG secondary to moderate background disorganization and slowing. There was no electrographic seizures or epileptiform discharges. Clinical Correlation This EEG indicates a moderate encephalopathy of nonspecific etiology. Hypothermia protocol and sedating medications can contribute to encephalopathy.
[2017-02-18 07:39] LABS: HEMOGLOBIN A1C 6.9 % (4.5-5.6)
--- NOTE | 2017-02-18 07:39 | Clinical Documentation Query ---
CLINICAL DOCUMENTATION QUERY 76 year old male who presents to the Emergency Room with Cardiac arrest. Prior to event patient has complaints of chest discomfort, cough and SOB. In your clinical opinion is this patient being managed for: ( X ) AMI in setting of patient with known CAD and Cardiomyopathy causing VT and ultimate cardiac arrest treated with antiarrhythmics, pressors, and Arctic protocol. ( ) Not Agree ( ) Other explanation of clinical findings (Please Explain) ( ) Unable to determine (Please Define) ( ) Need to Discuss The medical record reflects the following clinical findings, treatment, and risk factors. Clinical Indicators: +Troponins (0.407, 10.500, 11.00, 8.430). CP & SOB prior to arrest. Ultimate VT arrhythmia with arrest. Treatment: defibrillation, arctic protocol, serial troponin's, cardiology consult, IV Lasix, IV Dopamine, IV Amiodarone, Risk Factors: Age, know CAD with previous DC, Ischemic cardiomyopath. Please clarify and document your clinical opinion in the progress notes and discharge summary. Terms such as "probable", "suspected", "likely", "questionable", "possible", or "still to be ruled out" are acceptable. IF IN AGREEMENT, YOU MUST DOCUMENT ABOVE DIAGNOSTIC STATEMENT IN DAILY PROGRESS NOTES AND DISCHARGE SUMMARY. This document is not part of the patient's record. Thank You, Terrance Vela, FILEMON [phone]
[2017-02-18] MEDS: INSULIN ASPART 100 UNITS/ML 3 ML PEN SC SCH ×4 (08:00→19:17)
[2017-02-18 08:14] LABS: HEMATOCRIT 45.2 % (42-52); HEMOGLOBIN 15.6 g/dL (14.0-18.0); MEAN CELL VOLUME 95.4 fL (80-100); MEAN CORPUSCULAR HEMOGLOBIN 32.9 pg (25-34); MEAN CORPUSCULAR HGB CONC 34.5 g/dl (32-36); RED CELL DISTRIBUTION WIDTH SD 52.8 fL (36.4-46.3); WHITE BLOOD COUNT 7.81 K/uL (4.8-10.8)
[2017-02-18 08:34] LABS: INR 1.1 (0.9-1.1)
[2017-02-18 08:36] LABS: PTT PATIENT 65.3 SECONDS (21.0-31.0)
[2017-02-18 08:38] LABS: MEAN PLATELET VOLUME 11.6 fL (7.4-10.4); PLATELET COUNT 98 K/uL (130-400)
[2017-02-18 08:39] LABS: EOS % 0.5 %; EOS ABS # 0.04 K/uL (0-0.5); IG# 0.02 K/uL (0.00-0.02); LYMPH % 14.1 %; MONO % 7.7 %; NEUT % 77.4 %; NEUT ABS # 6.05 K/uL (1.4-6.5)
[2017-02-18 08:41] LABS: CALCIUM 7.8 mg/dl (8.5-10.1); CREATININE 1.58 mg/dl (0.60-1.40); PHOSPHORUS 5.4 mg/dl (2.5-4.9); POTASSIUM 4.2 mmol/L (3.5-5.1)
[2017-02-18] MEDS ORDERED: AMIODARONE IV BOLUS / DRIP IV STA (09:45)
[2017-02-18] MEDS: AMIODARONE / D5W 200 ML IV SCH ×2 (10:08→19:28)
--- NOTE | 2017-02-18 10:10 | CARDIOLOGY PROGRESS NOTE ---
DATE: 02/18/2017 DATE: 02/18/2017 The patient seen and examined. Chart, medications, laboratory studies, telemetry reviewed. SUBJECTIVE: The patient remains in cooling protocol with planned initiation of warming approximately 9:00 a.m. this morning. Arrhythmias have settled overnight with less ventricular ectopy. There is no sustained atrial or ventricular arrhythmias observed on monitor. He is adequately ventilated. Urinary outputs have increased this morning. No subjective changes. Amiodarone has been reinitiated this morning. He is ventilating adequately. Chest x-ray reveals slightly improved signs of pulmonary edema. OBJECTIVE: VITAL SIGNS: Heart rate is 58, blood pressure is 96/61. DATA: Telemetry reveals less pronounced atrial and ventricular ectopy. Sinus mechanism is with left bundle branch block, wide QRS complex. LABORATORY STUDIES: White cell count 7.8, hemoglobin 15.6, platelet count is 98,000. Sodium is 137, potassium is 4.2, chloride is 103, bicarbonate 24, BUN is 32, creatinine is 1.58. IMPRESSION: A 76-year-old male status post out of hospital arrest with resuscitation through LifeVest and aggressive resuscitation on ER presentation for sustained ventricular arrhythmias. The patient is undergoing cooling protocol with plans of warming later today. Will follow patient as clinical course progresses and assess neurologic recovery. If the patient does demonstrate significant neurologic recovery will have discussion with the patient and family regarding possible biventricular pacer defibrillator implantation as part of her clinical management. Will watch for signs or symptoms or arrhythmias. Renal function has been stable. Pulmonary status is being adequately addressed with ventilator at this time. Troponins are elevated since admission, but event not appear to be acutely ischemic in origin. He has returned to sinus rhythm.
[2017-02-18] MEDS ORDERED: NURSING VERBAL MED ORDER STA (11:39)
[2017-02-18 11:56] LABS: EOS % 0.8 %; EOS ABS # 0.06 K/uL (0-0.5); HEMATOCRIT 44.9 % (42-52); HEMOGLOBIN 15.9 g/dL (14.0-18.0); IG# 0.03 K/uL (0.00-0.02); LYMPH % 16.4 %; LYMPH ABS # 1.27 K/uL (1.2-3.4); MEAN CELL VOLUME 94.5 fL (80-100); MEAN CORPUSCULAR HEMOGLOBIN 33.5 pg (25-34); MEAN CORPUSCULAR HGB CONC 35.4 g/dl (32-36); MEAN PLATELET VOLUME 11.3 fL (7.4-10.4); MONO % 6.7 %; MONO ABS # 0.52 K/uL (0.11-0.59); NEUT % 75.7 %; NEUT ABS # 5.85 K/uL (1.4-6.5); PLATELET COUNT 102 K/uL (130-400); RED CELL DISTRIBUTION WIDTH SD 51.5 fL (36.4-46.3); WHITE BLOOD COUNT 7.73 K/uL (4.8-10.8)
[2017-02-18 12:14] LABS: INR 1.1 (0.9-1.1)
[2017-02-18 12:18] LABS: CALCIUM 7.8 mg/dl (8.5-10.1); CREATININE 1.61 mg/dl (0.60-1.40); PHOSPHORUS 5.1 mg/dl (2.5-4.9)
[2017-02-18 12:20] LABS: PTT PATIENT 61.9 SECONDS (21.0-31.0)
[2017-02-18] MEDS ORDERED: NOREPINEPHRINE BIT INJ 8 MG in DEXTROSE 5% 500ML 500 ML IV PRN (12:30)
--- NOTE | 2017-02-18 13:31 | Progress Note ---
Internal Med Progress Note Date of Service: Feb 18, 2017. Provider Documentation: SUBJECTIVE: remains intubated /sedated /unresponsive on hypothermic protocol on continuous video EEG for monitoring of subclinical seizure while on hypothermic protocol has chest tube urine out put has improved overnight pt is started on planned warming process this morning OBJECTIVE: Vital Signs-as noted below Exam: General-unresponsive on vent Eyes-pupils sluggish reaction to light ENT-EEG electrodes placed on scalp for cont 24 hr EEG monitoring Neck-no JVD noted Lungs-diminished Heart-regular Abdomen-soft, Extremities-no edema noted Neuro-unresponsive /on hypothermic protocol while on vent Lab data as noted below. 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 developed pneumothorax with extensive Rt sided sub q emphysema due to CPR Cxray shows : Rt sided pneumothorax with max pleural separation of 1.4 cm s/p rt right chest tube placement while in ICU , cardiac rhythm changed to Afib on amiodarone gtt /IV heparin started due arrhythmia -Afib appreciate input form Cardiology warming process started this morning appreciate help and input form the comb machine operator if pt is able to recover with adequate neurological capacity will need AICD placement AFIB : paroxysmal Afib due to cardiogenic shock / hypoxia on Amiodarone gtt IV heparin gtt appreciate cardiology input ELEVATED TROPONIN : due to Vtach cardiac arrest /aggressive CPR doubt due to acute PR /atherothrombotic plaque rupture Kris 0.40-> 10-> 11-> 8.4 ECHO 02/16/17 : thinning and scar of the inferior base, posterior and inferolateral ye. Septal motion is consistent with conduction abnormality. moderate apical wall hypokinesis. inferior wall akinesis. posterior wall akinesis. Ejection Fraction = 25-30%. ECHO unchanged from prior study on 12/2016 Cardiology following closely ROBERTO ON CKD STAGE 3 : due to Cardiac arrest /hypoperfusion of organs Cr:1.62 ( Baseline Cr:1.07) urine out put improved overnight on Dopamine gtt LACTIC ACIDOSIS : lactic acid > 2 , with out any evidence of infection or sepsis due to Cardiogenic shock /organ /tissue hypoperfusion Supportive care provided with IV pressors /Hypothermic protocol cont to monitor PROLONG Qtc : Qtc 534 while on hypothermic protocol monitor closely while on amiodarone gtt daily EKG ordered follow daily BMP /mg level UNRESPONSIVENESS : EEG ordered CT head: No acute intracranial abnormality Neurology consulted Family aware of patient's condition FULL CODE DVT PROPHYLAXIS iv heparin DISPOSITION remains critically ill in ICU Vital Signs: Date Time Temp Pulse Resp B/P (MAP) Pulse Ox O2 Delivery O2 Flow Rate FiO2 02/18/17 13:00 34.8 66 20 95/57 (70) 93 Mechanical Ventilator 40 104/58 (73) 02/18/17 12:00 40 02/18/17 12:00 34.5 64 20 91/58 (69) 93 Mechanical Ventilator 40 105/58 (74) 02/18/17 12:00 Mechanical Ventilator 40 02/18/17 11:01 34.1 62 20 91/56 (68) 94 Mechanical Ventilator 40 111/59 (76) 02/18/17 10:00 34.0 57 20 96/55 (69) 95 Mechanical Ventilator 40 111/63 (79) 02/18/17 09:00 34.1 58 20 96/61 (73) 95 Mechanical Ventilator 40 105/60 (75) 02/18/17 08:00 40 02/18/17 08:00 40 02/18/17 08:00 Mechanical Ventilator 40 02/18/17 08:00 34.2 56 20 94/57 (69) 95 Mechanical Ventilator 40 106/62 (77) 02/18/17 07:20 40 02/18/17 07:00 34.2 58 20 90/57 (68) 95 Mechanical Ventilator 40 97/53 (68) 02/18/17 06:00 34.2 62 16 91/59 (70) 95 Mechanical Ventilator 40 96/54 (68) 02/18/17 05:00 34.1 60 16 84/57 (66) 95 Mechanical Ventilator 40 93/61 (72) 02/18/17 04:55 40 02/18/17 04:00 34.1 60 16 97/61 (73) 94 Mechanical Ventilator 40 98/51 (67) 02/18/17 04:00 Mechanical Ventilator 40 02/18/17 04:00 30 02/18/17 03:00 34.1 59 16 93/61 (72) 94 Mechanical Ventilator 40 94/52 (66) 02/18/17 02:00 34.1 64 16 93/61 (72) 94 Mechanical Ventilator 40 94/52 (66) 02/18/17 02:00 40 02/18/17 01:45 30 02/18/17 01:00 34.2 66 16 94/65 (75) 93 Mechanical Ventilator 30 98/53 (68) 02/18/17 00:00 30 02/18/17 00:00 34.3 61 16 87/59 (68) 92 Mechanical Ventilator 30 98/52 (67) 02/18/17 00:00 Mechanical Ventilator 40 02/17/17 23:26 40 02/17/17 23:00 34.4 67 16 93/64 (74) 97 Mechanical Ventilator 40 02/17/17 22:00 34.5 67 16 93/58 (70) 97 Mechanical Ventilator 40 02/17/17 21:00 34.2 72 16 79/53 (62) 95 Mechanical Ventilator 40 89/49 (62) 02/17/17 20:15 33.8 76 17 86/53 (64) 94 Mechanical Ventilator 40 02/17/17 20:03 40 02/17/17 20:00 33.6 92 16 87/61 (70) 96 Mechanical Ventilator 40 02/17/17 20:00 33.6 90 16 87/61 (70) 97 Mechanical Ventilator 40 02/17/17 20:00 Mechanical Ventilator 40 02/17/17 20:00 40 02/17/17 19:46 33.4 83 16 96/56 (69) 93 Mechanical Ventilator 40 02/17/17 19:30 33.3 78 16 97/57 (70) 95 Mechanical Ventilator 40 02/17/17 19:15 33.1 79 16 95/57 (70) 95 Mechanical Ventilator 40 02/17/17 19:00 32.8 82 16 97/59 (72) 94 Mechanical Ventilator 40 108/51 (70) 02/17/17 19:00 32.9 78 16 97/58 (71) 94 Mechanical Ventilator 40 02/17/17 18:26 40 02/17/17 18:01 32.4 80 16 124/60 (81) 93 Mechanical Ventilator 40 119/51 (73) 02/17/17 18:01 32.4 80 16 124/60 (81) 93 Mechanical Ventilator 40 02/17/17 17:00 32.8 62 16 113/55 (74) 90 Mechanical Ventilator 35 130/47 (74) 02/17/17 16:00 35 Mechanical Ventilator 02/17/17 16:00 32.8 54 16 101/49 (66) 93 Mechanical Ventilator 35 100/49 (66) 02/17/17 16:00 32.8 54 16 100/49 (66) 93 Mechanical Ventilator 35 02/17/17 16:00 35 02/17/17 15:00 32.8 54 16 110/58 (75) 92 Mechanical Ventilator 35 115/49 (71) Lab Results: Results Past 24 Hours Test 02/17/17 15:00 02/17/17 15:56 02/17/17 15:57 02/17/17 17:02 Range/Units Bedside Glucose (other) 188 184 224 70-99 mg/dl White Blood Count 10.34 4.8-10.8 K/uL Red Blood Count 4.63 4.7-6.1 M/uL Hemoglobin 15.2 14.0-18.0 g/dL Hematocrit 45.0 42-52 % Mean Corpuscular Volume 97.2 80-100 fL Mean Corpuscular Hemoglobin 32.8 25-34 pg Mean Corpuscular Hemoglobin Concent 33.8 32-36 g/dl Platelet Count 121 130-400 K/uL Mean Platelet Volume 11.4 7.4-10.4 fL Neutrophils (%) (Auto) 82.9 % Lymphocytes (%) (Auto) 9.0 % Monocytes (%) (Auto) 7.7 % Eosinophils (%) (Auto) 0.0 % Basophils (%) (Auto) 0.1 % Neutrophils # (Auto) 8.57 1.4-6.5 K/uL Lymphocytes # (Auto) 0.93 1.2-3.4 K/uL Monocytes # (Auto) 0.80 0.11-0.59 K/uL Eosinophils # (Auto) 0.00 0-0.5 K/uL Basophils # (Auto) 0.01 0-0.2 K/uL RDW Standard Deviation 53.2 36.4-46.3 fL RDW Coefficient of Variation 15.1 11.5-14.5 % Immature Granulocyte % (Auto) 0.3 % Immature Granulocyte # (Auto) 0.03 0.00-0.02 K/uL Prothrombin Time 11.5 9.0-12.0 SECONDS Prothromb Time International Ratio 1.1 0.9-1.1 Activated Partial Thromboplast Time 63.0 21.0-31.0 SECONDS Partial Thromboplastin Ratio 2.4 Sodium Level 139 136-145 mmol/L Potassium Level 3.6 3.5-5.1 mmol/L Chloride Level 103 98-107 mmol/L Carbon Dioxide Level 26 21-32 mmol/L Anion Gap 9.0 3-11 mmol/L Blood Urea Nitrogen 27 7-18 mg/dl Creatinine 1.23 0.60-1.40 mg/dl Est Creatinine Clear Calc Drug Dose 57.8 ml/min Estimated GFR () 66.6 Estimated GFR (Non- 57.5 BUN/Creatinine Ratio 21.7 10-20 Random Glucose 186 70-99 mg/dl Calcium Level 7.8 8.5-10.1 mg/dl Phosphorus Level 4.9 2.5-4.9 mg/dl Magnesium Level 2.7 1.8-2.4 mg/dl Test 02/17/17 17:58 02/17/17 19:00 02/17/17 19:02 02/17/17 19:56 Range/Units Bedside Glucose (other) 209 179 70-99 mg/dl Creatine Kinase MB Ratio 0-3.0 White Blood Count 9.32 4.8-10.8 K/uL Red Blood Count 4.84 4.7-6.1 M/uL Hemoglobin 15.9 14.0-18.0 g/dL Hematocrit 46.9 42-52 % Mean Corpuscular Volume 96.9 80-100 fL Mean Corpuscular Hemoglobin 32.9 25-34 pg Mean Corpuscular Hemoglobin Concent 33.9 32-36 g/dl Platelet Count 127 130-400 K/uL Mean Platelet Volume 11.3 7.4-10.4 fL Neutrophils (%) (Auto) 85.7 % Lymphocytes (%) (Auto) 8.4 % Monocytes (%) (Auto) 5.6 % Eosinophils (%) (Auto) 0.0 % Basophils (%) (Auto) 0.1 % Neutrophils # (Auto) 7.99 1.4-6.5 K/uL Lymphocytes # (Auto) 0.78 1.2-3.4 K/uL Monocytes # (Auto) 0.52 0.11-0.59 K/uL Eosinophils # (Auto) 0.00 0-0.5 K/uL Basophils # (Auto) 0.01 0-0.2 K/uL RDW Standard Deviation 52.8 36.4-46.3 fL RDW Coefficient of Variation 14.9 11.5-14.5 % Immature Granulocyte % (Auto) 0.2 % Immature Granulocyte # (Auto) 0.02 0.00-0.02 K/uL Prothrombin Time 11.5 9.0-12.0 SECONDS Prothromb Time International Ratio 1.1 0.9-1.1 Activated Partial Thromboplast Time 75.3 21.0-31.0 SECONDS Partial Thromboplastin Ratio 2.9 Sodium Level 135 136-145 mmol/L Potassium Level 4.5 3.5-5.1 mmol/L Chloride Level 103 98-107 mmol/L Carbon Dioxide Level 28 21-32 mmol/L Anion Gap 4.0 3-11 mmol/L Blood Urea Nitrogen 29 7-18 mg/dl Creatinine 1.43 0.60-1.40 mg/dl Est Creatinine Clear Calc Drug Dose 49.7 ml/min Estimated GFR () 55.5 Estimated GFR (Non- 47.9 BUN/Creatinine Ratio 20.0 10-20 Random Glucose 141 70-99 mg/dl Calcium Level 7.8 8.5-10.1 mg/dl Phosphorus Level 4.6 2.5-4.9 mg/dl Magnesium Level 3.0 1.8-2.4 mg/dl Creatine Kinase MB 89.8 0.5-3.6 ng/ml Troponin I 8.430 0-0.045 ng/ml Test 02/17/17 20:04 02/17/17 21:09 02/17/17 22:06 02/17/17 23:06 Range/Units Bedside Glucose (other) 146 114 94 77 70-99 mg/dl Test 02/17/17 23:36 02/17/17 23:58 02/18/17 00:34 12/12/17 02:06 Range/Units Bedside Glucose (other) 152 109 102 70-99 mg/dl White Blood Count 9.24 4.8-10.8 K/uL Red Blood Count 4.70 4.7-6.1 M/uL Hemoglobin 15.4 14.0-18.0 g/dL Hematocrit 45.5 42-52 % Mean Corpuscular Volume 96.8 80-100 fL Mean Corpuscular Hemoglobin 32.8 25-34 pg Mean Corpuscular Hemoglobin Concent 33.8 32-36 g/dl Platelet Count 109 130-400 K/uL Mean Platelet Volume 10.6 7.4-10.4 fL Neutrophils (%) (Auto) 80.6 % Lymphocytes (%) (Auto) 11.9 % Monocytes (%) (Auto) 7.0 % Eosinophils (%) (Auto) 0.1 % Basophils (%) (Auto) 0.1 % Neutrophils # (Auto) 7.44 1.4-6.5 K/uL Lymphocytes # (Auto) 1.10 1.2-3.4 K/uL Monocytes # (Auto) 0.65 0.11-0.59 K/uL Eosinophils # (Auto) 0.01 0-0.5 K/uL Basophils # (Auto) 0.01 0-0.2 K/uL RDW Standard Deviation 53.0 36.4-46.3 fL RDW Coefficient of Variation 15.0 11.5-14.5 % Immature Granulocyte % (Auto) 0.3 % Immature Granulocyte # (Auto) 0.03 0.00-0.02 K/uL Prothrombin Time 11.3 9.0-12.0 SECONDS Prothromb Time International Ratio 1.1 0.9-1.1 Activated Partial Thromboplast Time 66.2 21.0-31.0 SECONDS Partial Thromboplastin Ratio 2.5 Sodium Level 137 136-145 mmol/L Potassium Level 4.0 3.5-5.1 mmol/L Chloride Level 102 98-107 mmol/L Carbon Dioxide Level 27 21-32 mmol/L Anion Gap 7.0 3-11 mmol/L Blood Urea Nitrogen 32 7-18 mg/dl Creatinine 1.56 0.60-1.40 mg/dl Est Creatinine Clear Calc Drug Dose 45.6 ml/min Estimated GFR () 50.0 Estimated GFR (Non- 43.1 BUN/Creatinine Ratio 20.3 10-20 Random Glucose 122 70-99 mg/dl Calcium Level 7.6 8.5-10.1 mg/dl Phosphorus Level 5.2 2.5-4.9 mg/dl Magnesium Level 2.9 1.8-2.4 mg/dl Test 02/18/17 03:00 02/18/17 04:07 02/18/17 04:11 02/18/17 05:02 Range/Units Bedside Glucose (other) 97 99 97 70-99 mg/dl White Blood Count 8.01 4.8-10.8 K/uL Red Blood Count 4.82 4.7-6.1 M/uL Hemoglobin 15.8 14.0-18.0 g/dL Hematocrit 46.3 42-52 % Mean Corpuscular Volume 96.1 80-100 fL Mean Corpuscular Hemoglobin 32.8 25-34 pg Mean Corpuscular Hemoglobin Concent 34.1 32-36 g/dl Platelet Count 109 130-400 K/uL Mean Platelet Volume 11.4 7.4-10.4 fL RDW Standard Deviation 52.4 36.4-46.3 fL RDW Coefficient of Variation 14.9 11.5-14.5 % Neutrophils % (Manual) 71.1 % Lymphocytes % (Manual) 7.0 % Variant Lymphocytes % (manual) 14.0 % Monocytes % (Manual) 7.0 % Basophils % (Manual) 0.9 0-2 % Neutrophils # (Manual) 5.70 1.4-6.5 K/uL Total Absolute Neutrophils 5.70 1.4-6.5 K/uL Lymphocytes # (Manual) 0.56 1.2-3.4 K/uL Absolute Variant Lymphocytes 1.12 K/uL Total Absolute Lymphocytes 1.68 1.2-3.4 K/uL Monocytes # (Manual) 0.56 0.11-0.59 K/uL Basophils # (Manual) 0.07 0-0.2 K/uL Red Blood Cell Morphology Unremarkable Prothrombin Time 11.9 9.0-12.0 SECONDS Prothromb Time International Ratio 1.1 0.9-1.1 Activated Partial Thromboplast Time 70.7 21.0-31.0 SECONDS Partial Thromboplastin Ratio 2.7 Sodium Level 136 136-145 mmol/L Potassium Level 4.0 3.5-5.1 mmol/L Chloride Level 102 98-107 mmol/L Carbon Dioxide Level 27 21-32 mmol/L Anion Gap 7.0 3-11 mmol/L Blood Urea Nitrogen 32 7-18 mg/dl Creatinine 1.59 0.60-1.40 mg/dl Est Creatinine Clear Calc Drug Dose 44.7 ml/min Estimated GFR () 48.8 Estimated GFR (Non- 42.1 BUN/Creatinine Ratio 20.2 10-20 Random Glucose 96 70-99 mg/dl Estimated Average Glucose 151 mg/dl Hemoglobin A1c 6.9 4.5-5.6 % Calcium Level 7.6 8.5-10.1 mg/dl Phosphorus Level 5.4 2.5-4.9 mg/dl Magnesium Level 2.8 1.8-2.4 mg/dl Total Bilirubin 0.6 0.2-1 mg/dl Direct Bilirubin 0.2 0-0.2 mg/dl Aspartate Amino Transf (AST/SGOT) 88 15-37 U/L Alanine Aminotransferase (ALT/SGPT) 65 12-78 U/L Alkaline Phosphatase 95 45-117 U/L Total Protein 5.8 6.4-8.2 gm/dl Albumin 2.7 3.4-5.0 gm/dl Test 02/18/17 05:09 02/18/17 06:06 02/18/17 07:10 02/18/17 08:01 Range/Units Blood Gas Sample Site Art Line Bedside Blood Gas pH (LAB) 7.29 7.35-7.45 Bedside Blood Gas pCO2 (LAB) 55 35-46 mmHg Bedside Blood Gas pO2 (LAB) 62 80-95 mmHg Bedside Blood Gas HCO3 (LAB) 27 19-24 meq/L Bedside Blood Gas Total CO2 29 24-31 mEq/l Bedside Blood Gas Base Excess (LAB) 0.0 -9-1.8 meq/L Bedside Blood Gas O2 Saturation 92.0 90-95 % Ran Test NA Oxygen Delivery Device Ventilator Bedside Oxygen Rate (breaths/min) 16 Blood Gas Minute Ventilation 6.6 Bedside FiO2 40 % Blood Gas Tidal Volume 450 Blood Gas PEEP 5 Bedside Glucose (other) 100 101 70-99 mg/dl White Blood Count 7.81 4.8-10.8 K/uL Red Blood Count 4.74 4.7-6.1 M/uL Hemoglobin 15.6 14.0-18.0 g/dL Hematocrit 45.2 42-52 % Mean Corpuscular Volume 95.4 80-100 fL Mean Corpuscular Hemoglobin 32.9 25-34 pg Mean Corpuscular Hemoglobin Concent 34.5 32-36 g/dl Platelet Count 98 130-400 K/uL Mean Platelet Volume 11.6 7.4-10.4 fL Neutrophils (%) (Auto) 77.4 % Lymphocytes (%) (Auto) 14.1 % Monocytes (%) (Auto) 7.7 % Eosinophils (%) (Auto) 0.5 % Basophils (%) (Auto) 0.0 % Neutrophils # (Auto) 6.05 1.4-6.5 K/uL Lymphocytes # (Auto) 1.10 1.2-3.4 K/uL Monocytes # (Auto) 0.60 0.11-0.59 K/uL Eosinophils # (Auto) 0.04 0-0.5 K/uL Basophils # (Auto) 0.00 0-0.2 K/uL RDW Standard Deviation 52.8 36.4-46.3 fL RDW Coefficient of Variation 15.0 11.5-14.5 % Immature Granulocyte % (Auto) 0.3 % Immature Granulocyte # (Auto) 0.02 0.00-0.02 K/uL Platelet Estimate DECREASED Prothrombin Time 11.6 9.0-12.0 SECONDS Prothromb Time International Ratio 1.1 0.9-1.1 Activated Partial Thromboplast Time 65.3 21.0-31.0 SECONDS Partial Thromboplastin Ratio 2.5 Sodium Level 137 136-145 mmol/L Potassium Level 4.2 3.5-5.1 mmol/L Chloride Level 103 98-107 mmol/L Carbon Dioxide Level 24 21-32 mmol/L Anion Gap 10.0 3-11 mmol/L Blood Urea Nitrogen 32 7-18 mg/dl Creatinine 1.58 0.60-1.40 mg/dl Est Creatinine Clear Calc Drug Dose 48.7 ml/min Estimated GFR () 49.2 Estimated GFR (Non- 42.5 BUN/Creatinine Ratio 20.4 10-20 Random Glucose 98 70-99 mg/dl Calcium Level 7.8 8.5-10.1 mg/dl Phosphorus Level 5.4 2.5-4.9 mg/dl Magnesium Level 2.8 1.8-2.4 mg/dl Test 02/18/17 08:04 02/18/17 10:02 02/18/17 11:46 02/18/17 11:51 Range/Units Bedside Glucose (other) 103 105 99 70-99 mg/dl White Blood Count 7.73 4.8-10.8 K/uL Red Blood Count 4.75 4.7-6.1 M/uL Hemoglobin 15.9 14.0-18.0 g/dL Hematocrit 44.9 42-52 % Mean Corpuscular Volume 94.5 80-100 fL Mean Corpuscular Hemoglobin 33.5 25-34 pg Mean Corpuscular Hemoglobin Concent 35.4 32-36 g/dl Platelet Count 102 130-400 K/uL Mean Platelet Volume 11.3 7.4-10.4 fL Neutrophils (%) (Auto) 75.7 % Lymphocytes (%) (Auto) 16.4 % Monocytes (%) (Auto) 6.7 % Eosinophils (%) (Auto) 0.8 % Basophils (%) (Auto) 0.0 % Neutrophils # (Auto) 5.85 1.4-6.5 K/uL Lymphocytes # (Auto) 1.27 1.2-3.4 K/uL Monocytes # (Auto) 0.52 0.11-0.59 K/uL Eosinophils # (Auto) 0.06 0-0.5 K/uL Basophils # (Auto) 0.00 0-0.2 K/uL RDW Standard Deviation 51.5 36.4-46.3 fL RDW Coefficient of Variation 15.0 11.5-14.5 % Immature Granulocyte % (Auto) 0.4 % Immature Granulocyte # (Auto) 0.03 0.00-0.02 K/uL Prothrombin Time 12.0 9.0-12.0 SECONDS Prothromb Time International Ratio 1.1 0.9-1.1 Activated Partial Thromboplast Time 61.9 21.0-31.0 SECONDS Partial Thromboplastin Ratio 2.4 Sodium Level 134 136-145 mmol/L Potassium Level 4.0 3.5-5.1 mmol/L Chloride Level 102 98-107 mmol/L Carbon Dioxide Level 25 21-32 mmol/L Anion Gap 7.0 3-11 mmol/L Blood Urea Nitrogen 32 7-18 mg/dl Creatinine 1.61 0.60-1.40 mg/dl Est Creatinine Clear Calc Drug Dose 47.8 ml/min Estimated GFR () 48.1 Estimated GFR (Non- 41.5 BUN/Creatinine Ratio 20.1 10-20 Random Glucose 94 70-99 mg/dl Calcium Level 7.8 8.5-10.1 mg/dl Phosphorus Level 5.1 2.5-4.9 mg/dl Magnesium Level 2.5 1.8-2.4 mg/dl Test 02/18/17 12:06 Range/Units Bedside Glucose (other) 101 70-99 mg/dl
[2017-02-18 16:24] LABS: BASO % 0.1 %; BASO ABS # 0.01 K/uL (0-0.2); EOS ABS # 0.08 K/uL (0-0.5); HEMATOCRIT 46.1 % (42-52); HEMOGLOBIN 15.7 g/dL (14.0-18.0); IG# 0.02 K/uL (0.00-0.02); LYMPH % 14.9 %; LYMPH ABS # 1.23 K/uL (1.2-3.4); MEAN CELL VOLUME 95.6 fL (80-100); MEAN CORPUSCULAR HEMOGLOBIN 32.6 pg (25-34); MEAN CORPUSCULAR HGB CONC 34.1 g/dl (32-36); MEAN PLATELET VOLUME 11.3 fL (7.4-10.4); MONO % 6.6 %; MONO ABS # 0.54 K/uL (0.11-0.59); NEUT % 77.2 %; NEUT ABS # 6.36 K/uL (1.4-6.5); PLATELET COUNT 110 K/uL (130-400); RED CELL DISTRIBUTION WIDTH CV 15.3 % (11.5-14.5); RED CELL DISTRIBUTION WIDTH SD 53.4 fL (36.4-46.3); WHITE BLOOD COUNT 8.24 K/uL (4.8-10.8)
[2017-02-18 16:43] LABS: INR 1.1 (0.9-1.1)
[2017-02-18 16:49] LABS: PTT PATIENT 49.5 SECONDS (21.0-31.0)
[2017-02-18 16:59] LABS: CALCIUM 7.7 mg/dl (8.5-10.1); CREATININE 1.64 mg/dl (0.60-1.40); PHOSPHORUS 5.6 mg/dl (2.5-4.9); POTASSIUM 4.1 mmol/L (3.5-5.1)
--- NOTE | 2017-02-18 19:49 | Critical Care Progress Note ---
Critical Care Progress Note Date of Service Feb 18, 2017. Attending Dr. Porras Subjective Review of system was not obtainable as the patient was sedated and intubated. Objective remains vented , sedated, under TTM. The patient completed his TTM, he started on a warming process, blood pressure dropped slightly requiring increasing dose of dopamine and adding Levophed. EEG did not reveal seizure activity in the past 24 hours. Urine output has been adequate. Subcutaneous emphysema on the right side has been stable. No air leak from the chest tube. His physical exam today revealed was sedated gentleman currently does not appear to be in any respiratory distress, his vital signs remained stable. Heart examination S1-S2 regular rate and rhythm. Mild bradycardia. Lungs with distant crackles right greater than left due to subcutaneous emphysema. Chest tube site appears to be clean. Abdomen is benign with subcutaneous emphysema trace edema in the periphery. Neurologic he is difficult to assess. Pupils are remains reactive. Current SOFA Score SOFA Score Response (Comments) Value PaO2/FiO2 (mmHg) < 400 1 Platelets (x10) > 150 0 Bilirubin (mg/dL) 1.2 - 1.9 1 [place] Coma Score 15 0 Level of Hypotension Dopamine > 5 mcq or Epi < 0.1 mcq 3 Creatinine (mg/dL) < 1.2 0 Total 5 Assessment & Plan #1 cardiac arrest, V. tach, V. fib and torsade. Status post TTM. #2 acute respiratory failure secondary to above. #3 iatrogenic pneumothorax status post thoracostomy tube in place. No air leak. #4 mild acute kidney insufficiency. #5 paroxysmal A. fib. #6 cardiomyopathy with ejection fraction of 25%. #7 history of V. fib arrest wearing life vest. Plan: #1 continue with the rewarming process reaching normal body temperature 37.5. #2 would keep the patient sedated overnight and start decreasing the sedation in the morning. #3 every the patient presented at the current vent settings with assist control and a PEEP of 5 with tidal volume 450. #4 obtain ABG in the morning. #5 repeated the chest x-ray in the morning. #6 keep the chest tube to 4 hours on 4 hours off alternatively. #7 diuresis as needed. #8 we will re-address his mental status once the sedation is decreased to the point that he can follow commands. #9 the patient remains nothing by mouth for now. He continued to have high residual by the NG tube. #10 glucose control. #11 patient is on heparin drip for proximal A. fib. #12 GI prophylaxis. #13 subcutaneous emphysema has been stable. #14 case discussed with the family at the bedside and details. All in agreement with the plan. Case discussed with the staff on rounds and details. Critical care time spent with the patient was 45 minutes. Consults & Procedures Consultants: cardiology Procedures: as previous. Data Medications: Current Inpatient Medications Medications (Trade) Dose Ordered Sig/Shakira Route Start Time Stop Time Status Last Admin Dose Admin Midazolam HCl 250 ml @ 0 mls/hr Q0M PRN IV 02/17/17 02:14 03/19/17 02:13 02/18/17 19:27 20 MLS/HR Fentanyl Citrate 250 ml @ 0 mls/hr Q0M PRN IV 02/17/17 02:14 03/03/17 02:13 02/18/17 19:27 40 MLS/HR Acetaminophen (Tylenol Tab) 650 mg Q4H PRN PO 02/17/17 02:30 03/19/17 02:29 Ondansetron HCl (Zofran Inj) 4 mg Q6H PRN IV 02/17/17 02:30 03/19/17 02:29 Artificial Tears (Lacri-Lube Oph Oint) 1 appln Q2H PRN OPB 02/17/17 03:15 03/19/17 03:14 Famotidine 20 mg/ Syringe 5 ml @ 2.5 mls/min Q12H IV 02/17/17 06:00 03/19/17 05:59 02/18/17 17:45 2.5 MLS/MIN Buspirone HCl (BusPAR TAB) 60 mg ONE PRN NG 02/17/17 03:15 03/19/17 03:14 02/17/17 19:46 60 MG Insulin Aspart (novoLOG ASPART) SLIDING SCALE PCHS SC 02/17/17 08:00 03/19/17 08:59 Insulin Human Regular 250 units/ Sodium Chloride 252.5 ml @ 0 mls/hr Q24H IV 02/17/17 05:00 03/19/17 04:59 02/18/17 05:14 0.8 MLS/HR Glucose (Glucose 40% Gel) 15-30 GRAMS 15 GRAMS... UD PRN PO 02/17/17 05:15 03/19/17 05:14 Glucose (Glucose Chew Tab) 4-8 Tablets 4 Tabl... UD PRN PO 02/17/17 05:15 03/19/17 05:14 Dextrose (Dextrose 50% 50ML Syringe) 25-50ML OF 50% DW IV FOR... UD PRN IV 02/17/17 05:15 03/19/17 05:14 02/17/17 23:17 25 ML Glucagon (Glucagon Inj) 1 mg UD PRN SQ 02/17/17 05:15 03/19/17 05:14 Heparin Sodium/ Dextrose 500 ml @ 16 mls/hr Q24H PRN IV 02/17/17 05:30 03/19/17 05:29 02/18/17 01:17 18 MLS/HR Ipratropium [place] (Atrovent Hfa Inhaler) 4 puffs QIDR INH 02/17/17 08:00 03/19/17 07:59 02/18/17 19:05 4 PUFFS Albuterol (Ventolin Hfa Inhaler) 4 puffs QIDR INH 02/17/17 08:00 03/19/17 07:59 02/18/17 19:05 4 PUFFS Dopamine HCl/ Dextrose 250 ml @ 0 mls/hr Q0M PRN IV 02/17/17 16:13 03/19/17 16:12 02/18/17 17:46 48.9 MLS/HR Heparin Sodium (Porcine) (Heparin 10 Unit/ ml 5 ml Flush) 5 ml PRN PRN FLUSH 02/18/17 00:15 03/20/17 00:14 Amiodarone HCL/ Dextrose 200 ml @ 16.7 mls/hr [id number] IV 02/18/17 10:00 03/20/17 09:59 02/18/17 19:28 16.7 MLS/HR Norepinephrine Bitartrate 8 mg/ Dextrose 508 ml @ 0 mls/hr Q0M PRN IV 02/18/17 12:30 03/20/17 12:29 I & O: 24-Hour Column 02/19/17 08:00 Intake Total 970 ml Output Total 726 ml Balance 244 ml Vital Signs: Date Time Temp Pulse Resp B/P (MAP) Pulse Ox O2 Delivery O2 Flow Rate FiO2 02/18/17 18:45 40 02/18/17 18:00 36.6 72 20 109/50 (69) 93 Mechanical Ventilator 45 108/50 (69) 02/18/17 16:00 Mechanical Ventilator 45 02/18/17 16:00 45 02/18/17 16:00 36.2 69 20 98/52 (67) 91 Mechanical Ventilator 45 111/48 (69) 02/18/17 15:00 35.6 71 20 89/55 (66) 92 Mechanical Ventilator 40 98/53 (68) 02/18/17 14:44 40 02/18/17 14:00 35.1 70 20 90/58 (69) 92 Mechanical Ventilator 40 100/56 (71) 02/18/17 13:00 34.8 66 20 95/57 (70) 93 Mechanical Ventilator 40 104/58 (73) 02/18/17 12:00 40 02/18/17 12:00 34.5 64 20 91/58 (69) 93 Mechanical Ventilator 40 105/58 (74) 02/18/17 12:00 Mechanical Ventilator 40 02/18/17 11:25 40 02/18/17 11:01 34.1 62 20 91/56 (68) 94 Mechanical Ventilator 40 111/59 (76) 02/18/17 10:00 34.0 57 20 96/55 (69) 95 Mechanical Ventilator 40 111/63 (79) 02/18/17 09:00 34.1 58 20 96/61 (73) 95 Mechanical Ventilator 40 105/60 (75) 02/18/17 08:00 40 02/18/17 08:00 40 02/18/17 08:00 Mechanical Ventilator 40 02/18/17 08:00 34.2 56 20 94/57 (69) 95 Mechanical Ventilator 40 106/62 (77) 02/18/17 07:20 40 02/18/17 07:00 34.2 58 20 90/57 (68) 95 Mechanical Ventilator 40 97/53 (68) 02/18/17 06:00 34.2 62 16 91/59 (70) 95 Mechanical Ventilator 40 96/54 (68) 02/18/17 05:00 34.1 60 16 84/57 (66) 95 Mechanical Ventilator 40 93/61 (72) 02/18/17 04:55 40 02/18/17 04:00 34.1 60 16 97/61 (73) 94 Mechanical Ventilator 40 98/51 (67) 02/18/17 04:00 Mechanical Ventilator 40 02/18/17 04:00 30 02/18/17 03:00 34.1 59 16 93/61 (72) 94 Mechanical Ventilator 40 94/52 (66) 02/18/17 02:00 34.1 64 16 93/61 (72) 94 Mechanical Ventilator 40 94/52 (66) 02/18/17 02:00 40 02/18/17 01:45 30 02/18/17 01:00 34.2 66 16 94/65 (75) 93 Mechanical Ventilator 30 98/53 (68) 02/18/17 00:00 30 02/18/17 00:00 34.3 61 16 87/59 (68) 92 Mechanical Ventilator 30 98/52 (67) 02/18/17 00:00 Mechanical Ventilator 40 02/17/17 23:26 40 02/17/17 23:00 34.4 67 16 93/64 (74) 97 Mechanical Ventilator 40 02/17/17 22:00 34.5 67 16 93/58 (70) 97 Mechanical Ventilator 40 02/17/17 21:00 34.2 72 16 79/53 (62) 95 Mechanical Ventilator 40 89/49 (62) 02/17/17 20:15 33.8 76 17 86/53 (64) 94 Mechanical Ventilator 40 02/17/17 20:03 40 02/17/17 20:00 33.6 92 16 87/61 (70) 96 Mechanical Ventilator 40 02/17/17 20:00 33.6 90 16 87/61 (70) 97 Mechanical Ventilator 40 02/17/17 20:00 Mechanical Ventilator 40 02/17/17 20:00 40 02/17/17 19:46 33.4 83 16 96/56 (69) 93 Mechanical Ventilator 40 Laboratory Results: Last 24 Hours Test 02/17/17 19:56 02/17/17 20:04 02/17/17 21:09 02/17/17 22:06 White Blood Count 9.32 K/uL Red Blood Count 4.84 M/uL Hemoglobin 15.9 g/dL Hematocrit 46.9 % Mean Corpuscular Volume 96.9 fL Mean Corpuscular Hemoglobin 32.9 pg Mean Corpuscular Hemoglobin Concent 33.9 g/dl Platelet Count 127 K/uL Mean Platelet Volume 11.3 fL Neutrophils (%) (Auto) 85.7 % Lymphocytes (%) (Auto) 8.4 % Monocytes (%) (Auto) 5.6 % Eosinophils (%) (Auto) 0.0 % Basophils (%) (Auto) 0.1 % Neutrophils # (Auto) 7.99 K/uL Lymphocytes # (Auto) 0.78 K/uL Monocytes # (Auto) 0.52 K/uL Eosinophils # (Auto) 0.00 K/uL Basophils # (Auto) 0.01 K/uL RDW Standard Deviation 52.8 fL RDW Coefficient of Variation 14.9 % Immature Granulocyte % (Auto) 0.2 % Immature Granulocyte # (Auto) 0.02 K/uL Prothrombin Time 11.5 SECONDS Prothromb Time International Ratio 1.1 Activated Partial Thromboplast Time 75.3 SECONDS Partial Thromboplastin Ratio 2.9 Sodium Level 135 mmol/L Potassium Level 4.5 mmol/L Chloride Level 103 mmol/L Carbon Dioxide Level 28 mmol/L Anion Gap 4.0 mmol/L Blood Urea Nitrogen 29 mg/dl Creatinine 1.43 mg/dl Est Creatinine Clear Calc Drug Dose 49.7 ml/min Estimated GFR () 55.5 Estimated GFR (Non- 47.9 BUN/Creatinine Ratio 20.0 Random Glucose 141 mg/dl Calcium Level 7.8 mg/dl Phosphorus Level 4.6 mg/dl Magnesium Level 3.0 mg/dl Creatine Kinase MB 89.8 ng/ml Troponin I 8.430 ng/ml Bedside Glucose (other) 146 mg/dl 114 mg/dl 94 mg/dl Test 02/17/17 23:06 02/17/17 23:36 02/17/17 23:58 02/18/17 00:34 Bedside Glucose (other) 77 mg/dl 152 mg/dl 109 mg/dl White Blood Count 9.24 K/uL Red Blood Count 4.70 M/uL Hemoglobin 15.4 g/dL Hematocrit 45.5 % Mean Corpuscular Volume 96.8 fL Mean Corpuscular Hemoglobin 32.8 pg Mean Corpuscular Hemoglobin Concent 33.8 g/dl Platelet Count 109 K/uL Mean Platelet Volume 10.6 fL Neutrophils (%) (Auto) 80.6 % Lymphocytes (%) (Auto) 11.9 % Monocytes (%) (Auto) 7.0 % Eosinophils (%) (Auto) 0.1 % Basophils (%) (Auto) 0.1 % Neutrophils # (Auto) 7.44 K/uL Lymphocytes # (Auto) 1.10 K/uL Monocytes # (Auto) 0.65 K/uL Eosinophils # (Auto) 0.01 K/uL Basophils # (Auto) 0.01 K/uL RDW Standard Deviation 53.0 fL RDW Coefficient of Variation 15.0 % Immature Granulocyte % (Auto) 0.3 % Immature Granulocyte # (Auto) 0.03 K/uL Prothrombin Time 11.3 SECONDS Prothromb Time International Ratio 1.1 Activated Partial Thromboplast Time 66.2 SECONDS Partial Thromboplastin Ratio 2.5 Sodium Level 137 mmol/L Potassium Level 4.0 mmol/L Chloride Level 102 mmol/L Carbon Dioxide Level 27 mmol/L Anion Gap 7.0 mmol/L Blood Urea Nitrogen 32 mg/dl Creatinine 1.56 mg/dl Est Creatinine Clear Calc Drug Dose 45.6 ml/min Estimated GFR () 50.0 Estimated GFR (Non- 43.1 BUN/Creatinine Ratio 20.3 Random Glucose 122 mg/dl Calcium Level 7.6 mg/dl Phosphorus Level 5.2 mg/dl Magnesium Level 2.9 mg/dl Test 02/18/17 02:06 02/18/17 03:00 02/18/17 04:07 02/18/17 04:11 Bedside Glucose (other) 102 mg/dl 97 mg/dl 99 mg/dl White Blood Count 8.01 K/uL Red Blood Count 4.82 M/uL Hemoglobin 15.8 g/dL Hematocrit 46.3 % Mean Corpuscular Volume 96.1 fL Mean Corpuscular Hemoglobin 32.8 pg Mean Corpuscular Hemoglobin Concent 34.1 g/dl Platelet Count 109 K/uL Mean Platelet Volume 11.4 fL RDW Standard Deviation 52.4 fL RDW Coefficient of Variation 14.9 % Neutrophils % (Manual) 71.1 % Lymphocytes % (Manual) 7.0 % Variant Lymphocytes % (manual) 14.0 % Monocytes % (Manual) 7.0 % Basophils % (Manual) 0.9 % Neutrophils # (Manual) 5.70 K/uL Total Absolute Neutrophils 5.70 K/uL Lymphocytes # (Manual) 0.56 K/uL Absolute Variant Lymphocytes 1.12 K/uL Total Absolute Lymphocytes 1.68 K/uL Monocytes # (Manual) 0.56 K/uL Basophils # (Manual) 0.07 K/uL Red Blood Cell Morphology Unremarkable Prothrombin Time 11.9 SECONDS Prothromb Time International Ratio 1.1 Activated Partial Thromboplast Time 70.7 SECONDS Partial Thromboplastin Ratio 2.7 Sodium Level 136 mmol/L Potassium Level 4.0 mmol/L Chloride Level 102 mmol/L Carbon Dioxide Level 27 mmol/L Anion Gap 7.0 mmol/L Blood Urea Nitrogen 32 mg/dl Creatinine 1.59 mg/dl Est Creatinine Clear Calc Drug Dose 44.7 ml/min Estimated GFR () 48.8 Estimated GFR (Non- 42.1 BUN/Creatinine Ratio 20.2 Random Glucose 96 mg/dl Estimated Average Glucose 151 mg/dl Hemoglobin A1c 6.9 % Calcium Level 7.6 mg/dl Phosphorus Level 5.4 mg/dl Magnesium Level 2.8 mg/dl Total Bilirubin 0.6 mg/dl Direct Bilirubin 0.2 mg/dl Aspartate Amino Transf (AST/SGOT) 88 U/L Alanine Aminotransferase (ALT/SGPT) 65 U/L Alkaline Phosphatase 95 U/L Total Protein 5.8 gm/dl Albumin 2.7 gm/dl Test 02/18/17 05:02 02/18/17 05:09 02/18/17 06:06 02/18/17 07:10 Bedside Glucose (other) 97 mg/dl 100 mg/dl 101 mg/dl Blood Gas Sample Site Art Line Bedside Blood Gas pH (LAB) 7.29 Bedside Blood Gas pCO2 (LAB) 55 mmHg Bedside Blood Gas pO2 (LAB) 62 mmHg Bedside Blood Gas HCO3 (LAB) 27 meq/L Bedside Blood Gas Total CO2 29 mEq/l Bedside Blood Gas Base Excess (LAB) 0.0 meq/L Bedside Blood Gas O2 Saturation 92.0 % Ran Test NA Oxygen Delivery Device Ventilator Bedside Oxygen Rate (breaths/min) 16 Blood Gas Minute Ventilation 6.6 Bedside FiO2 40 % Blood Gas Tidal Volume 450 Blood Gas PEEP 5 Test 02/18/17 08:01 02/18/17 08:04 02/18/17 10:02 02/18/17 11:46 White Blood Count 7.81 K/uL 7.73 K/uL Red Blood Count 4.74 M/uL 4.75 M/uL Hemoglobin 15.6 g/dL 15.9 g/dL Hematocrit 45.2 % 44.9 % Mean Corpuscular Volume 95.4 fL 94.5 fL Mean Corpuscular Hemoglobin 32.9 pg 33.5 pg Mean Corpuscular Hemoglobin Concent 34.5 g/dl 35.4 g/dl Platelet Count 98 K/uL 102 K/uL Mean Platelet Volume 11.6 fL 11.3 fL Neutrophils (%) (Auto) 77.4 % 75.7 % Lymphocytes (%) (Auto) 14.1 % 16.4 % Monocytes (%) (Auto) 7.7 % 6.7 % Eosinophils (%) (Auto) 0.5 % 0.8 % Basophils (%) (Auto) 0.0 % 0.0 % Neutrophils # (Auto) 6.05 K/uL 5.85 K/uL Lymphocytes # (Auto) 1.10 K/uL 1.27 K/uL Monocytes # (Auto) 0.60 K/uL 0.52 K/uL Eosinophils # (Auto) 0.04 K/uL 0.06 K/uL Basophils # (Auto) 0.00 K/uL 0.00 K/uL RDW Standard Deviation 52.8 fL 51.5 fL RDW Coefficient of Variation 15.0 % 15.0 % Immature Granulocyte % (Auto) 0.3 % 0.4 % Immature Granulocyte # (Auto) 0.02 K/uL 0.03 K/uL Platelet Estimate DECREASED Prothrombin Time 11.6 SECONDS 12.0 SECONDS Prothromb Time International Ratio 1.1 1.1 Activated Partial Thromboplast Time 65.3 SECONDS 61.9 SECONDS Partial Thromboplastin Ratio 2.5 2.4 Sodium Level 137 mmol/L 134 mmol/L Potassium Level 4.2 mmol/L 4.0 mmol/L Chloride Level 103 mmol/L 102 mmol/L Carbon Dioxide Level 24 mmol/L 25 mmol/L Anion Gap 10.0 mmol/L 7.0 mmol/L Blood Urea Nitrogen 32 mg/dl 32 mg/dl Creatinine 1.58 mg/dl 1.61 mg/dl Est Creatinine Clear Calc Drug Dose 48.7 ml/min 47.8 ml/min Estimated GFR () 49.2 48.1 Estimated GFR (Non- 42.5 41.5 BUN/Creatinine Ratio 20.4 20.1 Random Glucose 98 mg/dl 94 mg/dl Calcium Level 7.8 mg/dl 7.8 mg/dl Phosphorus Level 5.4 mg/dl 5.1 mg/dl Magnesium Level 2.8 mg/dl 2.5 mg/dl Bedside Glucose (other) 103 mg/dl 105 mg/dl Test 02/18/17 11:51 02/18/17 12:06 02/18/17 14:04 02/18/17 16:01 Bedside Glucose (other) 99 mg/dl 101 mg/dl 104 mg/dl White Blood Count 8.24 K/uL Red Blood Count 4.82 M/uL Hemoglobin 15.7 g/dL Hematocrit 46.1 % Mean Corpuscular Volume 95.6 fL Mean Corpuscular Hemoglobin 32.6 pg Mean Corpuscular Hemoglobin Concent 34.1 g/dl Platelet Count 110 K/uL Mean Platelet Volume 11.3 fL Neutrophils (%) (Auto) 77.2 % Lymphocytes (%) (Auto) 14.9 % Monocytes (%) (Auto) 6.6 % Eosinophils (%) (Auto) 1.0 % Basophils (%) (Auto) 0.1 % Neutrophils # (Auto) 6.36 K/uL Lymphocytes # (Auto) 1.23 K/uL Monocytes # (Auto) 0.54 K/uL Eosinophils # (Auto) 0.08 K/uL Basophils # (Auto) 0.01 K/uL RDW Standard Deviation 53.4 fL RDW Coefficient of Variation 15.3 % Immature Granulocyte % (Auto) 0.2 % Immature Granulocyte # (Auto) 0.02 K/uL Prothrombin Time 12.0 SECONDS Prothromb Time International Ratio 1.1 Activated Partial Thromboplast Time 49.5 SECONDS Partial Thromboplastin Ratio 1.9 Sodium Level 135 mmol/L Potassium Level 4.1 mmol/L Chloride Level 102 mmol/L Carbon Dioxide Level 24 mmol/L Anion Gap 10.0 mmol/L Blood Urea Nitrogen 31 mg/dl Creatinine 1.64 mg/dl Est Creatinine Clear Calc Drug Dose 47.0 ml/min Estimated GFR () 47.0 Estimated GFR (Non- 40.6 BUN/Creatinine Ratio 19.1 Random Glucose 107 mg/dl Calcium Level 7.7 mg/dl Phosphorus Level 5.6 mg/dl Magnesium Level 2.5 mg/dl Test 02/18/17 17:57 Bedside Glucose (other) 127 mg/dl
[2017-02-19] VITALS (31 sets, daily range): BP systolic 99–130; BP diastolic 44–60; PULSE 70–84; TEMP 37.1–38; O2SAT 93–99
[2017-02-19] MEDS: DOPAMINE 400 MG IV PRN ×4 (00:34→17:30)
[2017-02-19] MEDS: [UNRECOGNIZED DRUG - OTHER] IV PRN ×4 (00:34→17:30)
[2017-02-19] MEDS: FENTANYL 1250MCG/250ML NSS 250 ML IV PRN ×2 (02:58→09:17)
[2017-02-19] MEDS: INSULIN REGULAR 250 UNITS in SODIUM CHLORIDE 0.9% 250ML 250 ML IV SCH (05:38)
[2017-02-19] MEDS: FAMOTIDINE IV INJ 20 MG in SYRINGE 3 ML IV SCH ×2 (05:40→17:39)
[2017-02-19 06:11] LABS: INR 1.2 (0.9-1.1); PTT PATIENT 41.2 SECONDS (21.0-31.0)
[2017-02-19 06:39] LABS: ALBUMIN 2.3 gm/dl (3.4-5.0); CALCIUM 7.6 mg/dl (8.5-10.1); CREATININE 1.68 mg/dl (0.60-1.40); PHOSPHORUS 4.8 mg/dl (2.5-4.9); POTASSIUM 4.5 mmol/L (3.5-5.1); TOTAL PROTEIN 5.6 gm/dl (6.4-8.2)
[2017-02-19 06:40] LABS: HEMATOCRIT 45.5 % (42-52); HEMOGLOBIN 15.6 g/dL (14.0-18.0); MEAN CELL VOLUME 95.8 fL (80-100); MEAN CORPUSCULAR HEMOGLOBIN 32.8 pg (25-34); MEAN CORPUSCULAR HGB CONC 34.3 g/dl (32-36); PLATELET COUNT 127 K/uL (130-400); RED CELL DISTRIBUTION WIDTH CV 15.4 % (11.5-14.5); RED CELL DISTRIBUTION WIDTH SD 53.3 fL (36.4-46.3); WHITE BLOOD COUNT 8.36 K/uL (4.8-10.8)
[2017-02-19 06:41] LABS: BASO % 0.1 %; BASO ABS # 0.01 K/uL (0-0.2); EOS % 0.6 %; EOS ABS # 0.05 K/uL (0-0.5); IG# 0.02 K/uL (0.00-0.02); LYMPH % 16.9 %; LYMPH ABS # 1.41 K/uL (1.2-3.4); MONO % 7.9 %; MONO ABS # 0.66 K/uL (0.11-0.59); NEUT % 74.3 %; NEUT ABS # 6.21 K/uL (1.4-6.5)
[2017-02-19] MEDS: IPRATROPIUM BROMIDE HFA INHALER INH SCH ×4 (07:25→20:26)
[2017-02-19] MEDS: ALBUTEROL HFA 8 GM INHALER INH SCH ×4 (07:25→20:26)
[2017-02-19] MEDS ORDERED: HEPARIN IV BOLUS 3,000 UNIT in SYRINGE 0 ML IV ONE (07:30)
--- NOTE | 2017-02-19 07:37 | DIAGNOSTIC IMAGING REPORT ---
CHEST ONE VIEW PORTABLE HISTORY: Intubated, Cardiac Arrest, Code Blue COMPARISON: Chest 02/18/2017. FINDINGS: Nasogastric tube terminates below the diaphragm. The tip is not included in this study. Endotracheal tube terminates approximately 3 cm from the mickie. Small right pneumothorax persists. Right chest tube is unchanged in position. Bibasilar densities and a small left pleural effusion persist. Mild pulmonary basilar congestion is also unchanged. Right chest wall subcutaneous emphysema. IMPRESSION: 1. Satisfactory support line placement. 2. No change in the small right pneumothorax. 3. Bibasilar densities and a small left pleural effusion are also unchanged. Electronically signed by: Akash Morocho M.D. 02/19/2017 7:36 AM Dictated Date/Time: 02/19/2017 7:34 AM
[2017-02-19] MEDS: AMIODARONE / D5W 200 ML IV SCH ×2 (07:40→18:40)
[2017-02-19] MEDS: MIDAZOLAM 125MG/250ML D5W 250 ML IV PRN (07:41)
[2017-02-19] MEDS: HEPARIN 25,000 UNIT/500ML D5W 500 ML IV PRN ×2 (07:42→09:20)
[2017-02-19] MEDS: INSULIN ASPART 100 UNITS/ML 3 ML PEN SC SCH ×4 (08:00→22:10)
[2017-02-19] MEDS ORDERED: FUROSEMIDE INJ 40 MG in SYRINGE 0 ML IV SCH (09:30)
--- NOTE | 2017-02-19 10:16 | EEG Procedure Note ---
EEG Procedure Note Date of Service Feb 18, 2017. Start / End Times Start Time: 02/18/2017 at 7:27 AM End Time: 02/18/2017 at 17:06 PM Referring Physician Thelma CARL History This is a 76-year-old male who presented with cardiac arrest and hypothermia protocol. Continuous video EEG for further evaluation and monitoring of subclinical seizures during hypothermia protocol. Home Medication List Scheduled Aspirin (Aspirin Ec), 81 MG PO HS Home O2 Therapy (Oxygen), 2 LITERS NA HS Ipratropium-Albuterol (Duoneb), 1 TREATMENT INH TID Losartan Potassium (Cozaar), 25 MG PO QPM Metoprolol Succinate (Toprol Xl), 25 MG PO QAM Rosuvastatin Calcium (Crestor), 5 MG PO QAM Spironolactone (Aldactone), 25 MG PO QAM Torsemide (Demadex), 20 MG PO QAM Scheduled PRN Ipratropium-Albuterol (Combivent Respimat), 1 PUFFS INH QID PRN for Wheezing Omeprazole (Prilosec), 20 MG PO QAM PRN for Heartburn Sildenafil Citrate (Viagra), 25 MG PO UD PRN for intercourse Sucralfate (Carafate), 1 GM PO ACHS PRN for Heartburn Inpatient Medication List Current Inpatient Medications Medications (Trade) Dose Ordered Sig/Shakira Route Start Time Stop Time Status Last Admin Dose Admin Midazolam HCl 250 ml @ 0 mls/hr Q0M PRN IV 02/17/17 02:14 03/19/17 02:13 02/19/17 07:41 20 MLS/HR Fentanyl Citrate 250 ml @ 0 mls/hr Q0M PRN IV 02/17/17 02:14 03/03/17 02:13 02/19/17 09:17 40 MLS/HR Acetaminophen (Tylenol Tab) 650 mg Q4H PRN PO 02/17/17 02:30 03/19/17 02:29 Ondansetron HCl (Zofran Inj) 4 mg Q6H PRN IV 02/17/17 02:30 03/19/17 02:29 Artificial Tears (Lacri-Lube Oph Oint) 1 appln Q2H PRN OPB 02/17/17 03:15 03/19/17 03:14 Famotidine 20 mg/ Syringe 5 ml @ 2.5 mls/min Q12H IV 02/17/17 06:00 03/19/17 05:59 02/19/17 05:40 2.5 MLS/MIN Buspirone HCl (BusPAR TAB) 60 mg ONE PRN NG 02/17/17 03:15 03/19/17 03:14 02/17/17 19:46 60 MG Insulin Aspart (novoLOG ASPART) SLIDING SCALE HS SC 02/17/17 08:00 03/19/17 08:59 Insulin Human Regular 250 units/ Sodium Chloride 252.5 ml @ 0 mls/hr Q24H IV 02/17/17 05:00 03/19/17 04:59 02/19/17 05:38 0.8 MLS/HR Glucose (Glucose 40% Gel) 15-30 GRAMS 15 GRAMS... UD PRN PO 02/17/17 05:15 03/19/17 05:14 Glucose (Glucose Chew Tab) 4-8 Tablets 4 Tabl... UD PRN PO 02/17/17 05:15 03/19/17 05:14 Dextrose (Dextrose 50% 50ML Syringe) 25-50ML OF 50% DW IV FOR... UD PRN IV 02/17/17 05:15 03/19/17 05:14 02/17/17 23:17 25 ML Glucagon (Glucagon Inj) 1 mg UD PRN SQ 02/17/17 05:15 03/19/17 05:14 Heparin Sodium/ Dextrose 500 ml @ 18 mls/hr Q24H PRN IV 02/17/17 05:30 03/19/17 05:29 02/19/17 09:20 18 MLS/HR Ipratropium [place] (Atrovent Hfa Inhaler) 4 puffs QIDR INH 02/17/17 08:00 03/19/17 07:59 02/18/17 19:05 4 PUFFS Albuterol (Ventolin Hfa Inhaler) 4 puffs QIDR INH 02/17/17 08:00 03/19/17 07:59 02/18/17 19:05 4 PUFFS Dopamine HCl/ Dextrose 250 ml @ 0 mls/hr Q0M PRN IV 02/17/17 16:13 03/19/17 16:12 02/19/17 05:40 48.9 MLS/HR Heparin Sodium (Porcine) (Heparin 10 Unit/ ml 5 ml Flush) 5 ml PRN PRN FLUSH 02/18/17 00:15 03/20/17 00:14 Amiodarone HCL/ Dextrose 200 ml @ 16.7 mls/hr [id number] IV 02/18/17 10:00 03/20/17 09:59 02/19/17 07:40 16.7 MLS/HR Norepinephrine Bitartrate 8 mg/ Dextrose 508 ml @ 0 mls/hr Q0M PRN IV 02/18/17 12:30 03/20/17 12:29 Description This is a 21 electrode continuous video EEG with a single channel dedicated to limited EKG. The electrodes were placed in accordance with the International 10- 20 system. At the start of this recording the patient was intubated, sedated, and unresponsive. Background was poorly organized with no well formed anterior to posterior gradient. Background was composed of predominantly low to moderate amplitude 2-3Hz delta frequencies with intermittent theta frequencies. There was no state changes or sleep transients. Interpretation This is an abnormal continuous video EEG secondary to moderate background disorganization and slowing. There was no electrographic seizures or epileptiform discharges. Clinical Correlation This EEG indicates a moderate encephalopathy of nonspecific etiology. Hypothermia protocol and sedating medications can contribute to encephalopathy.
[2017-02-19] MEDS ORDERED: MAG SULFATE 50% 1GM/2ML VIAL IV ONE (10:32)
[2017-02-19] MEDS ORDERED: SODIUM CHLORIDE 0.9% 10ML FLUSH IV ONE (10:32)
[2017-02-19] MEDS ORDERED: DOPamine 400MG / 250ML D5W IV ONE (10:32)
[2017-02-19] MEDS ORDERED: LIDOCAINE 2% 20 MG/ML 5ML SYR IV ONE (10:32)
[2017-02-19] MEDS ORDERED: SODIUM BICARB 8.4% INJ 50 MEQ/50 ML SYR IV ONE (10:32)
[2017-02-19] MEDS ORDERED: AMIODARONE HCL INJ 50 MG/ML 3 ML VIAL IV ONE (10:32)
[2017-02-19] MEDS ORDERED: SODIUM CHLORIDE 0.9% INJ 10 ML VIAL IV ONE (10:32)
[2017-02-19] MEDS ORDERED: MAGNESIUM SULFATE 1GM / D5W 1 GM BAG IV ONE (10:32)
--- NOTE | 2017-02-19 10:47 | Progress Note ---
Internal Med Progress Note Date of Service: Feb 19, 2017. Provider Documentation: SUBJECTIVE: finished warming process yesterday ; Temp 37.5 , Tamx 38 overnight remains intubated has chest tube on right side Urine out put improved , Weiss draining clear yellow urine sedation is being gradually been weaned off for trial of CPAP on IV heparin /Amiodarone gtt for Paroxysmal Afib telemetry shows normal sinus rhythm , Qtc improved 503 continued on Pressors Dopamine gtt /Levophed gtt OBJECTIVE: Vital Signs-as noted below Exam: General-intubated , still unresponsive , Eyes-bilateral pin point pupil ( due to IV Fentanyl gtt ) ENT-ET tube in place Neck-Rt IJ present , rt lower neck crepitus + ( subcutaneous emphysema ) Lungs-diminished on right , + rales , Chest tube on rt side Heart-regular Abdomen-soft, Extremities-no edema noted Neuro-unresponsive /on vent /sedation being weaned off nursing mentions of pt moving arms while providing oral care Lab data as noted below. ASSESSMENT & PLAN: VTACH CARDIAC ARREST : 02/19/17 : taken off Hypothermic protocol , Body core temp at normal 37.5 started to wean off sedation ( required large amount of sedation : Fentanyl @ 200 mcq, Versed @ 10mg/h ) plan for CPAP trial later today appreciate input /help from Billet Checker rt sided Chest tube remains in air seal converted to sinus rhythm /rate controlled @ 60's , on Amiodarone gtt improved Qtc on IV Heparin gtt on Dobutamine and Levophed gtt if pt able to recover enough to be extubated without neurological deficit will benefit with AICD placement during this hospital cardiology following 02/18/2017: HX of CAD with ischemic cardiomyopathy , 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 developed pneumothorax with extensive Rt sided sub q emphysema due to CPR Cxray shows 02/16/17 : Rt sided pneumothorax with max pleural separation of 1.4 cm s/p rt right chest tube placement while in ICU , cardiac rhythm changed to Afib on amiodarone gtt /IV heparin started due arrhythmia -Afib appreciate input form Cardiology warming process started this morning appreciate help and input form the [employer] worker if pt is able to recover with adequate neurological capacity will need AICD placement AFIB : paroxysmal Afib due to cardiogenic shock / hypoxia on Amiodarone gtt converted to sinus with rate controlled rhythm IV heparin gtt appreciate cardiology input ELEVATED TROPONIN : due to Vtach cardiac arrest /aggressive CPR doubt due to acute OK /atherothrombotic plaque rupture Kris 0.40-> 10-> 11-> 8.4 ECHO 02/16/17 : thinning and scar of the inferior base, posterior and inferolateral ye. Septal motion is consistent with conduction abnormality. moderate apical wall hypokinesis. inferior wall akinesis. posterior wall akinesis. Ejection Fraction = 25-30%. ECHO unchanged from prior study on 12/2016 Cardiology following closely ROBERTO ON CKD STAGE 3 : due to Cardiac arrest /hypoperfusion of organs cr remains in 1.6 urine out put improved : 1227 input/1585 output (300 from OG suction , 1275 -Urine out put ). on Dopamine gtt /SBP stable in 100-110 TYPE 2 DM : on Insulin gtt 8U /hr pharmacy following for glycemic management LACTIC ACIDOSIS : resolved Lactic acid 1.2 -after adequate tissue perfusion establish with Hypothermic protocol /pressors lactic acid was > 2 , with out any evidence of infection or sepsis due to Cardiogenic shock /organ /tissue hypoperfusion Supportive care provided with IV pressors /Hypothermic protocol PROLONG Qtc : improved today Qtc 534 -> 503 monitor closely while on amiodarone gtt daily EKG ordered follow daily BMP /mg level DVT PROPHYLAXIS iv heparin DNR /DNI DISPOSITION remains critically ill in ICU Vital Signs: Date Time Temp Pulse Resp B/P (MAP) Pulse Ox O2 Delivery O2 Flow Rate FiO2 02/19/17 12:00 37.1 76 20 113/48 (69) 96 Mechanical Ventilator 45 109/55 (73) 02/19/17 12:00 45 02/19/17 12:00 96 Mechanical Ventilator 45 02/19/17 11:15 45 02/19/17 10:00 37.5 70 20 123/50 (74) 97 Mechanical Ventilator 45 02/19/17 08:00 40 02/19/17 08:00 96 Mechanical Ventilator 45 02/19/17 08:00 45 02/19/17 08:00 37.5 72 20 105/55 (72) 96 Mechanical Ventilator 45 02/19/17 07:25 45 02/19/17 06:00 37.6 71 20 119/51 (73) 95 Mechanical Ventilator 45 110/56 (74) 02/19/17 05:35 45 02/19/17 05:00 37.8 71 20 117/50 (72) 96 Mechanical Ventilator 45 112/60 (77) 02/19/17 04:00 Mechanical Ventilator 45 02/19/17 04:00 37.8 73 20 106/50 (68) 96 Mechanical Ventilator 45 108/52 (70) 02/19/17 04:00 45 02/19/17 03:00 37.9 73 20 105/49 (67) 96 Mechanical Ventilator 45 101/54 (70) 02/19/17 02:25 45 02/19/17 02:00 37.9 82 20 109/51 (70) 95 Mechanical Ventilator 45 108/55 (72) 02/19/17 01:00 38.0 76 20 108/50 (69) 95 Mechanical Ventilator 45 107/57 (74) 02/19/17 00:31 38.0 80 20 99/47 (64) 96 Mechanical Ventilator 45 02/19/17 00:00 Mechanical Ventilator 45 02/19/17 00:00 38.0 75 20 108/51 (70) 95 Mechanical Ventilator 45 101/54 (70) 02/19/17 00:00 45 02/18/17 23:31 37.9 78 20 100/45 (63) 95 Mechanical Ventilator 45 02/18/17 23:00 37.9 77 20 96/45 (62) 94 Mechanical Ventilator 45 97/50 (66) 02/18/17 22:45 45 02/18/17 22:11 37.7 76 20 105/52 (69) 96 Mechanical Ventilator 45 103/48 (66) 02/18/17 20:30 45 02/18/17 20:00 37.5 75 20 103/47 (65) 93 Mechanical Ventilator 45 100/52 (68) 02/18/17 20:00 Mechanical Ventilator 45 02/18/17 20:00 45 02/18/17 18:45 40 02/18/17 18:00 36.6 72 20 109/50 (69) 93 Mechanical Ventilator 45 108/50 (69) 02/18/17 16:00 Mechanical Ventilator 45 02/18/17 16:00 45 02/18/17 16:00 36.2 69 20 98/52 (67) 91 Mechanical Ventilator 45 111/48 (69) 02/18/17 15:00 35.6 71 20 89/55 (66) 92 Mechanical Ventilator 40 98/53 (68) 02/18/17 14:44 40 02/18/17 14:00 35.1 70 20 90/58 (69) 92 Mechanical Ventilator 40 100/56 (71) Lab Results: Results Past 24 Hours Test 02/18/17 14:04 02/18/17 16:01 02/18/17 17:57 02/18/17 22:09 Range/Units Bedside Glucose (other) 104 127 139 70-99 mg/dl White Blood Count 8.24 4.8-10.8 K/uL Red Blood Count 4.82 4.7-6.1 M/uL Hemoglobin 15.7 14.0-18.0 g/dL Hematocrit 46.1 42-52 % Mean Corpuscular Volume 95.6 80-100 fL Mean Corpuscular Hemoglobin 32.6 25-34 pg Mean Corpuscular Hemoglobin Concent 34.1 32-36 g/dl Platelet Count 110 130-400 K/uL Mean Platelet Volume 11.3 7.4-10.4 fL Neutrophils (%) (Auto) 77.2 % Lymphocytes (%) (Auto) 14.9 % Monocytes (%) (Auto) 6.6 % Eosinophils (%) (Auto) 1.0 % Basophils (%) (Auto) 0.1 % Neutrophils # (Auto) 6.36 1.4-6.5 K/uL Lymphocytes # (Auto) 1.23 1.2-3.4 K/uL Monocytes # (Auto) 0.54 0.11-0.59 K/uL Eosinophils # (Auto) 0.08 0-0.5 K/uL Basophils # (Auto) 0.01 0-0.2 K/uL RDW Standard Deviation 53.4 36.4-46.3 fL RDW Coefficient of Variation 15.3 11.5-14.5 % Immature Granulocyte % (Auto) 0.2 % Immature Granulocyte # (Auto) 0.02 0.00-0.02 K/uL Prothrombin Time 12.0 9.0-12.0 SECONDS Prothromb Time International Ratio 1.1 0.9-1.1 Activated Partial Thromboplast Time 49.5 21.0-31.0 SECONDS Partial Thromboplastin Ratio 1.9 Sodium Level 135 136-145 mmol/L Potassium Level 4.1 3.5-5.1 mmol/L Chloride Level 102 98-107 mmol/L Carbon Dioxide Level 24 21-32 mmol/L Anion Gap 10.0 3-11 mmol/L Blood Urea Nitrogen 31 7-18 mg/dl Creatinine 1.64 0.60-1.40 mg/dl Est Creatinine Clear Calc Drug Dose 47.0 ml/min Estimated GFR () 47.0 Estimated GFR (Non- 40.6 BUN/Creatinine Ratio 19.1 10-20 Random Glucose 107 70-99 mg/dl Calcium Level 7.7 8.5-10.1 mg/dl Phosphorus Level 5.6 2.5-4.9 mg/dl Magnesium Level 2.5 1.8-2.4 mg/dl Test 02/19/17 02:11 02/19/17 05:27 02/19/17 05:36 02/19/17 10:05 Range/Units Bedside Glucose (other) 143 139 70-99 mg/dl White Blood Count 8.36 4.8-10.8 K/uL Red Blood Count 4.75 4.7-6.1 M/uL Hemoglobin 15.6 14.0-18.0 g/dL Hematocrit 45.5 42-52 % Mean Corpuscular Volume 95.8 80-100 fL Mean Corpuscular Hemoglobin 32.8 25-34 pg Mean Corpuscular Hemoglobin Concent 34.3 32-36 g/dl Platelet Count 127 130-400 K/uL Mean Platelet Volume 12.0 7.4-10.4 fL Neutrophils (%) (Auto) 74.3 % Lymphocytes (%) (Auto) 16.9 % Monocytes (%) (Auto) 7.9 % Eosinophils (%) (Auto) 0.6 % Basophils (%) (Auto) 0.1 % Neutrophils # (Auto) 6.21 1.4-6.5 K/uL Lymphocytes # (Auto) 1.41 1.2-3.4 K/uL Monocytes # (Auto) 0.66 0.11-0.59 K/uL Eosinophils # (Auto) 0.05 0-0.5 K/uL Basophils # (Auto) 0.01 0-0.2 K/uL RDW Standard Deviation 53.3 36.4-46.3 fL RDW Coefficient of Variation 15.4 11.5-14.5 % Immature Granulocyte % (Auto) 0.2 % Immature Granulocyte # (Auto) 0.02 0.00-0.02 K/uL Platelet Estimate DECREASED Prothrombin Time 12.4 9.0-12.0 SECONDS Prothromb Time International Ratio 1.2 0.9-1.1 Activated Partial Thromboplast Time 41.2 21.0-31.0 SECONDS Partial Thromboplastin Ratio 1.6 Sodium Level 134 136-145 mmol/L Potassium Level 4.5 3.5-5.1 mmol/L Chloride Level 102 98-107 mmol/L Carbon Dioxide Level 25 21-32 mmol/L Anion Gap 7.0 3-11 mmol/L Blood Urea Nitrogen 32 7-18 mg/dl Creatinine 1.68 0.60-1.40 mg/dl Est Creatinine Clear Calc Drug Dose 42.3 ml/min Estimated GFR () 45.7 Estimated GFR (Non- 39.4 BUN/Creatinine Ratio 18.8 10-20 Random Glucose 130 70-99 mg/dl Calcium Level 7.6 8.5-10.1 mg/dl Phosphorus Level 4.8 2.5-4.9 mg/dl Magnesium Level 2.5 1.8-2.4 mg/dl Total Bilirubin 0.9 0.2-1 mg/dl Direct Bilirubin 0.3 0-0.2 mg/dl Aspartate Amino Transf (AST/SGOT) 38 15-37 U/L Alanine Aminotransferase (ALT/SGPT) 49 12-78 U/L Alkaline Phosphatase 103 45-117 U/L Total Protein 5.6 6.4-8.2 gm/dl Albumin 2.3 3.4-5.0 gm/dl Lactic Acid Level 1.2 0.4-2.0 mmol/L Heparin-PF4 Antibody Screen NEG NEG Test 02/19/17 10:08 02/19/17 13:08 Range/Units Bedside Glucose (other) 135 70-99 mg/dl Activated Partial Thromboplast Time 52.8 21.0-31.0 SECONDS Partial Thromboplastin Ratio 2.0
[2017-02-19 13:37] LABS: PTT PATIENT 52.8 SECONDS (21.0-31.0)
--- NOTE | 2017-02-19 13:55 | PROGRESS NOTE ---
DATE: 02/19/2017 CARDIOLOGY CONSULTATION FOLLOWUP NOTE The patient seen and examined. Chart, medications, telemetry reviewed. SUBJECTIVE: The patient is now completing warming protocol and begin lightning sedation later this morning. There has been no further arrhythmias. He is on multiple IV infusions including dopamine, norepinephrine and amiodarone. Overall, clinical course is stabilized. Urine outputs have increased, renal function has been generally stable. OBJECTIVE: VITAL SIGNS: Heart rate 76, blood pressure is 113/48. NECK: Thick. There is no distinct jugular venous distention. LUNGS: Reveal coarse upper airway sounds. CARDIOVASCULAR: Regular. There is no S3 gallop. ABDOMEN: Soft. EXTREMITIES: Without cyanosis or clubbing. There is 1+ lower extremity edema. DATA: EKG this morning demonstrates sinus rhythm with left bundle branch block at a rate of 70, QT corrected at 503. Sodium is 134, potassium is 4.5, chloride is 102, bicarbonate is 25, BUN is 32, and creatinine is 1.68. Hemoglobin is 15.6. IMPRESSION AND PLAN: The patient is status post out of hospital arrest and for resuscitation due to LifeVest and in the ER extended course, now completing cooling protocol and rewarming, sedation will be light and will assess for neurologic function. Continue current medications. If significant recovery has demonstrated, will ultimately need to address needs for defibrillator implantation in this admission likely biventricular device given wide complex left bundle branch block at baseline. Family is aware, noted if arrhythmias would acutely occur in this patient in the next 6-8 hours as sedation is reduced, would allow synchronized electrocardioversion. Will rediscuss indications for pacer defibrillator depending on clinical course. [facility]
--- NOTE | 2017-02-19 15:17 | Critical Care Progress Note ---
Critical Care Progress Note Date of Service Feb 19, 2017. Attending Dr. Porras Subjective The patient remains comatose and intubated review of system was not obtainable. Objective remains vented , sedated, under TTM. The patient completed his TTM, he started on a warming process, blood pressure dropped slightly requiring increasing dose of dopamine and adding Levophed. EEG did not reveal seizure activity in the past 24 hours. Urine output has been adequate. Subcutaneous emphysema on the right side has been stable. No air leak from the chest tube. His physical exam today revealed was sedated gentleman currently does not appear to be in any respiratory distress, his vital signs remained stable. Heart examination S1-S2 regular rate and rhythm. Mild bradycardia. Lungs with distant crackles right greater than left due to subcutaneous emphysema. Chest tube site appears to be clean. Abdomen is benign with subcutaneous emphysema trace edema in the periphery. Neurologic he is difficult to assess. Pupils are remains reactive. On 02/19/2017, the patient continued to be intubated. We were able to wean his sedation to off. Minimal leak from the chest tube was noted and likely related to defect in the tubing. Subcutaneous emphysema has been stable. Current SOFA Score SOFA Score Response (Comments) Value PaO2/FiO2 (mmHg) < 400 1 Platelets (x10) > 150 0 Bilirubin (mg/dL) 1.2 - 1.9 1 Hammond Coma Score 15 0 Level of Hypotension Dopamine > 5 mcq or Epi < 0.1 mcq 3 Creatinine (mg/dL) < 1.2 0 Total 5 Assessment & Plan #1 cardiac arrest, V. fib/V. tach. #2 acute respiratory failure. #3 cardiomyopathy with EF of 25%. #4 paroxysmal A. fib. #5 iatrogenic pneumothorax status post thoracostomy tube. #6 coronary artery disease. #7 acute kidney insufficiency, stable. Plan: #1 we'll taper fentanyl to off. #2 we will taper Versed to off. #3 Lasix 40 mg IV given to induce diuresis. #4 electrolytes replacement. #[address] Greenfield from cardiology, appreciate his input. #6 continue amiodarone. #7 continue dopamine and taper Levophed to off if possible. #8 I would keep his tube feeding on hold for the time being as a patient is potentially extubated will hopefully in a day or 2. #9 continue with the heparin drip. #10 chest tube dressing change was done. #11 GI prophylaxis. #12 no skin issues other than the subcutaneous emphysema which has been resolving. Case discussed with the staff about some details. The patient that input. Critical care time spent with the patient was 45 minutes including discussion with the family and answering her questions. Consults & Procedures Consultants: cardiology Procedures: as previous. Data Medications: Current Inpatient Medications Medications (Trade) Dose Ordered Sig/Shakira Route Start Time Stop Time Status Last Admin Dose Admin Midazolam HCl 250 ml @ 0 mls/hr Q0M PRN IV 02/17/17 02:14 03/19/17 02:13 02/19/17 07:41 20 MLS/HR Fentanyl Citrate 250 ml @ 0 mls/hr Q0M PRN IV 02/17/17 02:14 03/03/17 02:13 02/19/17 09:17 40 MLS/HR Acetaminophen (Tylenol Tab) 650 mg Q4H PRN PO 02/17/17 02:30 03/19/17 02:29 Ondansetron HCl (Zofran Inj) 4 mg Q6H PRN IV 02/17/17 02:30 03/19/17 02:29 Artificial Tears (Lacri-Lube Oph Oint) 1 appln Q2H PRN OPB 02/17/17 03:15 03/19/17 03:14 Famotidine 20 mg/ Syringe 5 ml @ 2.5 mls/min Q12H IV 02/17/17 06:00 03/19/17 05:59 02/19/17 05:40 2.5 MLS/MIN Buspirone HCl (BusPAR TAB) 60 mg ONE PRN NG 02/17/17 03:15 03/19/17 03:14 02/17/17 19:46 60 MG Insulin Aspart (novoLOG ASPART) SLIDING SCALE PCHS SC 02/17/17 08:00 03/19/17 08:59 Insulin Human Regular 250 units/ Sodium Chloride 252.5 ml @ 0 mls/hr Q24H IV 02/17/17 05:00 03/19/17 04:59 02/19/17 05:38 0.8 MLS/HR Glucose (Glucose 40% Gel) 15-30 GRAMS 15 GRAMS... UD PRN PO 02/17/17 05:15 03/19/17 05:14 Glucose (Glucose Chew Tab) 4-8 Tablets 4 Tabl... UD PRN PO 02/17/17 05:15 03/19/17 05:14 Dextrose (Dextrose 50% 50ML Syringe) 25-50ML OF 50% DW IV FOR... UD PRN IV 02/17/17 05:15 03/19/17 05:14 02/17/17 23:17 25 ML Glucagon (Glucagon Inj) 1 mg UD PRN SQ 02/17/17 05:15 03/19/17 05:14 Heparin Sodium/ Dextrose 500 ml @ 18 mls/hr Q24H PRN IV 02/17/17 05:30 03/19/17 05:29 02/19/17 09:20 18 MLS/HR Ipratropium [place] (Atrovent Hfa Inhaler) 4 puffs QIDR INH 02/17/17 08:00 03/19/17 07:59 02/19/17 11:15 4 PUFFS Albuterol (Ventolin Hfa Inhaler) 4 puffs QIDR INH 02/17/17 08:00 03/19/17 07:59 02/19/17 11:15 4 PUFFS Dopamine HCl/ Dextrose 250 ml @ 0 mls/hr Q0M PRN IV 02/17/17 16:13 03/19/17 16:12 02/19/17 11:35 39.2 MLS/HR Heparin Sodium (Porcine) (Heparin 10 Unit/ ml 5 ml Flush) 5 ml PRN PRN FLUSH 02/18/17 00:15 03/20/17 00:14 Amiodarone HCL/ Dextrose 200 ml @ 16.7 mls/hr [id number] IV 02/18/17 10:00 03/20/17 09:59 02/19/17 07:40 16.7 MLS/HR Norepinephrine Bitartrate 8 mg/ Dextrose 508 ml @ 0 mls/hr Q0M PRN IV 02/18/17 12:30 03/20/17 12:29 02/19/17 13:14 17.4 MLS/HR I & O: 24-Hour Column 02/20/17 07:59 Intake Total 1071 ml Output Total 3400 ml Balance -2329 ml Vital Signs: Date Time Temp Pulse Resp B/P (MAP) Pulse Ox O2 Delivery O2 Flow Rate FiO2 02/19/17 14:00 37.5 74 20 129/47 (74) 95 Mechanical Ventilator 45 02/19/17 12:00 37.1 76 20 113/48 (69) 96 Mechanical Ventilator 45 109/55 (73) 02/19/17 12:00 45 02/19/17 12:00 96 Mechanical Ventilator 45 02/19/17 11:15 45 02/19/17 10:00 37.5 70 20 123/50 (74) 97 Mechanical Ventilator 45 02/19/17 08:00 40 02/19/17 08:00 96 Mechanical Ventilator 45 02/19/17 08:00 45 02/19/17 08:00 37.5 72 20 105/55 (72) 96 Mechanical Ventilator 45 02/19/17 07:25 45 02/19/17 06:00 37.6 71 20 119/51 (73) 95 Mechanical Ventilator 45 110/56 (74) 02/19/17 05:35 45 02/19/17 05:00 37.8 71 20 117/50 (72) 96 Mechanical Ventilator 45 112/60 (77) 02/19/17 04:00 Mechanical Ventilator 45 02/19/17 04:00 37.8 73 20 106/50 (68) 96 Mechanical Ventilator 45 108/52 (70) 02/19/17 04:00 45 02/19/17 03:00 37.9 73 20 105/49 (67) 96 Mechanical Ventilator 45 101/54 (70) 02/19/17 02:25 45 02/19/17 02:00 37.9 82 20 109/51 (70) 95 Mechanical Ventilator 45 108/55 (72) 02/19/17 01:00 38.0 76 20 108/50 (69) 95 Mechanical Ventilator 45 107/57 (74) 02/19/17 00:31 38.0 80 20 99/47 (64) 96 Mechanical Ventilator 45 02/19/17 00:00 Mechanical Ventilator 45 02/19/17 00:00 38.0 75 20 108/51 (70) 95 Mechanical Ventilator 45 101/54 (70) 02/19/17 00:00 45 02/18/17 23:31 37.9 78 20 100/45 (63) 95 Mechanical Ventilator 45 02/18/17 23:00 37.9 77 20 96/45 (62) 94 Mechanical Ventilator 45 97/50 (66) 02/18/17 22:45 45 02/18/17 22:11 37.7 76 20 105/52 (69) 96 Mechanical Ventilator 45 103/48 (66) 02/18/17 20:30 45 02/18/17 20:00 37.5 75 20 103/47 (65) 93 Mechanical Ventilator 45 100/52 (68) 02/18/17 20:00 Mechanical Ventilator 45 02/18/17 20:00 45 02/18/17 18:45 40 02/18/17 18:00 36.6 72 20 109/50 (69) 93 Mechanical Ventilator 45 108/50 (69) 02/18/17 16:00 Mechanical Ventilator 45 02/18/17 16:00 45 02/18/17 16:00 36.2 69 20 98/52 (67) 91 Mechanical Ventilator 45 111/48 (69) Laboratory Results: Last 24 Hours Test 02/18/17 16:01 02/18/17 17:57 02/18/17 22:09 02/19/17 02:11 White Blood Count 8.24 K/uL Red Blood Count 4.82 M/uL Hemoglobin 15.7 g/dL Hematocrit 46.1 % Mean Corpuscular Volume 95.6 fL Mean Corpuscular Hemoglobin 32.6 pg Mean Corpuscular Hemoglobin Concent 34.1 g/dl Platelet Count 110 K/uL Mean Platelet Volume 11.3 fL Neutrophils (%) (Auto) 77.2 % Lymphocytes (%) (Auto) 14.9 % Monocytes (%) (Auto) 6.6 % Eosinophils (%) (Auto) 1.0 % Basophils (%) (Auto) 0.1 % Neutrophils # (Auto) 6.36 K/uL Lymphocytes # (Auto) 1.23 K/uL Monocytes # (Auto) 0.54 K/uL Eosinophils # (Auto) 0.08 K/uL Basophils # (Auto) 0.01 K/uL RDW Standard Deviation 53.4 fL RDW Coefficient of Variation 15.3 % Immature Granulocyte % (Auto) 0.2 % Immature Granulocyte # (Auto) 0.02 K/uL Prothrombin Time 12.0 SECONDS Prothromb Time International Ratio 1.1 Activated Partial Thromboplast Time 49.5 SECONDS Partial Thromboplastin Ratio 1.9 Sodium Level 135 mmol/L Potassium Level 4.1 mmol/L Chloride Level 102 mmol/L Carbon Dioxide Level 24 mmol/L Anion Gap 10.0 mmol/L Blood Urea Nitrogen 31 mg/dl Creatinine 1.64 mg/dl Est Creatinine Clear Calc Drug Dose 47.0 ml/min Estimated GFR () 47.0 Estimated GFR (Non- 40.6 BUN/Creatinine Ratio 19.1 Random Glucose 107 mg/dl Calcium Level 7.7 mg/dl Phosphorus Level 5.6 mg/dl Magnesium Level 2.5 mg/dl Bedside Glucose (other) 127 mg/dl 139 mg/dl 143 mg/dl Test 02/19/17 05:27 02/19/17 05:36 02/19/17 10:05 02/19/17 10:08 White Blood Count 8.36 K/uL Red Blood Count 4.75 M/uL Hemoglobin 15.6 g/dL Hematocrit 45.5 % Mean Corpuscular Volume 95.8 fL Mean Corpuscular Hemoglobin 32.8 pg Mean Corpuscular Hemoglobin Concent 34.3 g/dl Platelet Count 127 K/uL Mean Platelet Volume 12.0 fL Neutrophils (%) (Auto) 74.3 % Lymphocytes (%) (Auto) 16.9 % Monocytes (%) (Auto) 7.9 % Eosinophils (%) (Auto) 0.6 % Basophils (%) (Auto) 0.1 % Neutrophils # (Auto) 6.21 K/uL Lymphocytes # (Auto) 1.41 K/uL Monocytes # (Auto) 0.66 K/uL Eosinophils # (Auto) 0.05 K/uL Basophils # (Auto) 0.01 K/uL RDW Standard Deviation 53.3 fL RDW Coefficient of Variation 15.4 % Immature Granulocyte % (Auto) 0.2 % Immature Granulocyte # (Auto) 0.02 K/uL Platelet Estimate DECREASED Prothrombin Time 12.4 SECONDS Prothromb Time International Ratio 1.2 Activated Partial Thromboplast Time 41.2 SECONDS Partial Thromboplastin Ratio 1.6 Sodium Level 134 mmol/L Potassium Level 4.5 mmol/L Chloride Level 102 mmol/L Carbon Dioxide Level 25 mmol/L Anion Gap 7.0 mmol/L Blood Urea Nitrogen 32 mg/dl Creatinine 1.68 mg/dl Est Creatinine Clear Calc Drug Dose 42.3 ml/min Estimated GFR () 45.7 Estimated GFR (Non- 39.4 BUN/Creatinine Ratio 18.8 Random Glucose 130 mg/dl Calcium Level 7.6 mg/dl Phosphorus Level 4.8 mg/dl Magnesium Level 2.5 mg/dl Total Bilirubin 0.9 mg/dl Direct Bilirubin 0.3 mg/dl Aspartate Amino Transf (AST/SGOT) 38 U/L Alanine Aminotransferase (ALT/SGPT) 49 U/L Alkaline Phosphatase 103 U/L Total Protein 5.6 gm/dl Albumin 2.3 gm/dl Bedside Glucose (other) 139 mg/dl 135 mg/dl Lactic Acid Level 1.2 mmol/L Heparin-PF4 Antibody Screen NEG Test 02/19/17 13:08 Activated Partial Thromboplast Time 52.8 SECONDS Partial Thromboplastin Ratio 2.0
--- NOTE | 2017-02-19 16:02 | Progress Note ---
Progress Note Date of Service Feb 19, 2017. Progress Note ATTENDING ADDENDUM : Noted family discussion with Cardiology Dr Greenfield If arrhythmias would acutely occur in this patient in the next 6-8 hours as sedation is reduced, would allow synchronized electrocardioversion [employer] In[employer] updated CODE status changed to FULL CODE
[2017-02-20] VITALS (21 sets, daily range): BP systolic 97–136; BP diastolic 47–60; PULSE 76–98; TEMP 36.8–37.6; O2SAT 91–98
[2017-02-20] MEDS: [UNRECOGNIZED DRUG - OTHER] IV PRN ×3 (01:19→15:39)
[2017-02-20] MEDS: DOPAMINE 400 MG IV PRN ×3 (01:19→15:39)
[2017-02-20] MEDS: INSULIN REGULAR 250 UNITS in SODIUM CHLORIDE 0.9% 250ML 250 ML IV SCH (05:17)
[2017-02-20] MEDS: FAMOTIDINE IV INJ 20 MG in SYRINGE 3 ML IV SCH ×2 (05:19→19:00)
[2017-02-20 05:50] LABS: BASO % 0.2 %; BASO ABS # 0.01 K/uL (0-0.2); EOS % 0.5 %; EOS ABS # 0.03 K/uL (0-0.5); HEMATOCRIT 43.8 % (42-52); HEMOGLOBIN 14.8 g/dL (14.0-18.0); IG# 0.03 K/uL (0.00-0.02); LYMPH % 14.4 %; LYMPH ABS # 0.89 K/uL (1.2-3.4); MEAN CELL VOLUME 94.4 fL (80-100); MEAN CORPUSCULAR HEMOGLOBIN 31.9 pg (25-34); MEAN CORPUSCULAR HGB CONC 33.8 g/dl (32-36); MEAN PLATELET VOLUME 11.6 fL (7.4-10.4); MONO % 5.7 %; MONO ABS # 0.35 K/uL (0.11-0.59); NEUT % 78.7 %; NEUT ABS # 4.86 K/uL (1.4-6.5); PLATELET COUNT 118 K/uL (130-400); RED CELL DISTRIBUTION WIDTH CV 15.6 % (11.5-14.5); RED CELL DISTRIBUTION WIDTH SD 53.8 fL (36.4-46.3); WHITE BLOOD COUNT 6.17 K/uL (4.8-10.8)
[2017-02-20 05:56] LABS: INR 1.1 (0.9-1.1); PTT PATIENT 44.1 SECONDS (21.0-31.0)
[2017-02-20 06:20] LABS: ALBUMIN 2.1 gm/dl (3.4-5.0); CALCIUM 8.4 mg/dl (8.5-10.1); CREATININE 1.24 mg/dl (0.60-1.40)
[2017-02-20 06:24] LABS: PHOSPHORUS 3.2 mg/dl (2.5-4.9); TOTAL PROTEIN 5.4 gm/dl (6.4-8.2)
[2017-02-20] MEDS ORDERED: HEPARIN IV BOLUS 3,000 UNIT in SYRINGE 0 ML IV ONE ×2 (07:15→14:45)
[2017-02-20] MEDS: AMIODARONE / D5W 200 ML IV SCH ×2 (07:38→21:04)
[2017-02-20] MEDS: INSULIN ASPART 100 UNITS/ML 3 ML PEN SC SCH ×4 (07:38→22:00)
[2017-02-20] MEDS: ALBUTEROL HFA 8 GM INHALER INH SCH ×4 (07:48→20:05)
[2017-02-20] MEDS: IPRATROPIUM BROMIDE HFA INHALER INH SCH ×4 (07:48→20:05)
--- NOTE | 2017-02-20 08:01 | DIAGNOSTIC IMAGING REPORT ---
CHEST ONE VIEW PORTABLE CLINICAL HISTORY: 76 years-old Male presenting with Intubated, Cardiac Arrest, Code Blue. TECHNIQUE: Portable upright AP view of the chest was obtained. COMPARISON: 02/19/2017. FINDINGS: Endotracheal tube terminates in the mid thoracic trachea over 3 cm from the mickie. Right internal jugular central venous catheter terminates in the upper SVC. A nasogastric tube descends below the diaphragm with sidehole contained within the gastric lumen. The large bore right pleural drain terminates at the paramediastinal right apex. Extensive subcutaneous emphysema along the right lateral and anterior chest wall as on prior exam. Bibasilar opacities stable to slightly decreased from prior. No evidence of a residual right pneumothorax. Trace pleural effusions may be present. Degenerative changes of the thoracic spine. Upper abdomen normal. IMPRESSION: 1. No significant residual right pneumothorax with a large right pleural drain in place. 2. Remaining lines and tubes appropriately positioned. 3. Stable to slight interval decrease in bibasilar atelectasis. Electronically signed by: Andrea Rice M.D. 02/20/2017 8:00 AM Dictated Date/Time: 02/20/2017 7:57 AM
[2017-02-20] MEDS ORDERED: PEPTAMEN 1.5 CAL 1000ML BAG PO SCH (08:30)
[2017-02-20] MEDS ORDERED: FENTANYL CITRATE INJ 50 MCG/1 ML 2 ML VIAL IV PRN (08:30)
[2017-02-20] MEDS ORDERED: NALOXONE HCL 0.4 MG/1 ML VIAL/CARP ONE (09:49)
[2017-02-20] MEDS ORDERED: NURSING VERBAL MED ORDER ONE (10:15)
[2017-02-20] MEDS: IMPACT LIQ 1000 ML BAG OG SCH (11:33)
--- NOTE | 2017-02-20 13:25 | Critical Care Progress Note ---
Critical Care Progress Note Date of Service Feb 20, 2017. Attending Dr. Porras Subjective Review of systems was not obtainable at this time. The patient seems to be more arousable and responsive to painful stimuli but he does not respond to any commands purposefully. He does not open his eyes yet. He continued to have air leak from the chest tube site. Appears to be also external as well as internal air leak. Subcutaneous emphysema has been improving. The patient is become off norepinephrine, he continued to be on dopamine, heparin and amiodarone. Oxygen requirement remains in the range of 40%. He failed CPAP. A trial of Narcan resulted in minimal agitation but no response to commands. A trial of chest tube clamping resulting in mild hypoxia and a chest tube was unclamped. Objective remains vented , sedated, under TTM. The patient completed his TTM, he started on a warming process, blood pressure dropped slightly requiring increasing dose of dopamine and adding Levophed. EEG did not reveal seizure activity in the past 24 hours. Urine output has been adequate. Subcutaneous emphysema on the right side has been stable. No air leak from the chest tube. His physical exam today revealed was sedated gentleman currently does not appear to be in any respiratory distress, his vital signs remained stable. Heart examination S1-S2 regular rate and rhythm. Mild bradycardia. Lungs with distant crackles right greater than left due to subcutaneous emphysema. Chest tube site appears to be clean. Abdomen is benign with subcutaneous emphysema trace edema in the periphery. Neurologic he is difficult to assess. Pupils are remains reactive. On 02/19/2017, the patient continued to be intubated. We were able to wean his sedation to off. Minimal leak from the chest tube was noted and likely related to defect in the tubing. Subcutaneous emphysema has been stable. On 02/20/2017, the patient remains intubated, moving mildly, does not have any purposeful movement or following commands, remains sedated although he has been off sedatives for at least 48 hours. His heart examination S1-S2 regular rate and rhythm, subcutaneous emphysema protruding good auscultation of the chest, abdomen is benign, trace edema in the periphery. Neurologically is difficult to assess. Current SOFA Score SOFA Score Response (Comments) Value PaO2/FiO2 (mmHg) < 400 1 Platelets (x10) > 150 0 Bilirubin (mg/dL) 1.2 - 1.9 1 Mary Coma Score 15 0 Level of Hypotension Dopamine > 5 mcq or Epi < 0.1 mcq 3 Creatinine (mg/dL) < 1.2 0 Total 5 Assessment & Plan #1 cardiac arrest, V. fib/V. tach. #2 cardiomyopathy with congestive heart failure, ejection fraction is 25%. #3 paroxysmal A. fib on heparin drip. Rate controlled and currently in normal sinus rhythm. #4 acute respiratory failure requiring intubation secondary to above. #5 right sided rib fractures with iatrogenic pneumothorax status post chest tube placement day 4. #6 bibasilar atelectasis. Plan: #1 keep the patient off sedatives. #2 May use fentanyl and Versed when necessary basis. #3 I have given the patient a dose of Narcan 0.4 mg which is also the minimal agitation without awakening. #4 medication reconciliation. #5 at trial of chest tube clamping did not resolve and improving his respiratory status in fact he started desaturating and the tube was unclamped. #6 would continue his chest tube to off and on suction. #7 heparin drip. #8 amiodarone drip. #9 titrate dopamine down to off. #[address] Greenfield input, awaiting improving overall status for possible defibrillator placement. #11 GI prophylaxis. #12 start tube feeding. #13 discussed with the staff on violence in details. Critical care time spent with the patient including family discussion and above maneuvers was 45 minutes. Consults & Procedures Consultants: cardiology Procedures: as previous. Data Medications: Current Inpatient Medications Medications (Trade) Dose Ordered Sig/Shakira Route Start Time Stop Time Status Last Admin Dose Admin Acetaminophen (Tylenol Tab) 650 mg Q4H PRN PO 02/17/17 02:30 03/19/17 02:29 Ondansetron HCl (Zofran Inj) 4 mg Q6H PRN IV 02/17/17 02:30 03/19/17 02:29 Artificial Tears (Lacri-Lube Oph Oint) 1 appln Q2H PRN OPB 02/17/17 03:15 03/19/17 03:14 Famotidine 20 mg/ Syringe 5 ml @ 2.5 mls/min Q12H IV 02/17/17 06:00 03/19/17 05:59 02/20/17 05:19 2.5 MLS/MIN Buspirone HCl (BusPAR TAB) 60 mg ONE PRN NG 02/17/17 03:15 03/19/17 03:14 02/17/17 19:46 60 MG Insulin Aspart (novoLOG ASPART) [facility] 02/17/17 08:00 03/19/17 08:59 Insulin Human Regular 250 units/ Sodium Chloride 252.5 ml @ 0 mls/hr Q24H IV 02/17/17 05:00 03/19/17 04:59 02/20/17 05:17 0.8 MLS/HR Glucose (Glucose 40% Gel) 15-30 GRAMS 15 GRAMS... UD PRN PO 02/17/17 05:15 03/19/17 05:14 Glucose (Glucose Chew Tab) 4-8 Tablets 4 Tabl... UD PRN PO 02/17/17 05:15 03/19/17 05:14 Dextrose (Dextrose 50% 50ML Syringe) 25-50ML OF 50% DW IV FOR... UD PRN IV 02/17/17 05:15 03/19/17 05:14 02/17/17 23:17 25 ML Glucagon (Glucagon Inj) 1 mg UD PRN SQ 02/17/17 05:15 03/19/17 05:14 Heparin Sodium/ Dextrose 500 ml @ 20 mls/hr Q24H PRN IV 02/17/17 05:30 03/19/17 05:29 02/19/17 09:20 18 MLS/HR Ipratropium [place] (Atrovent Hfa Inhaler) 4 puffs QIDR INH 02/17/17 08:00 03/19/17 07:59 02/20/17 11:20 4 PUFFS Albuterol (Ventolin Hfa Inhaler) 4 puffs QIDR INH 02/17/17 08:00 03/19/17 07:59 02/20/17 11:19 4 PUFFS Dopamine HCl/ Dextrose 250 ml @ 0 mls/hr Q0M PRN IV 02/17/17 16:13 03/19/17 16:12 02/20/17 07:37 35.9 MLS/HR Heparin Sodium (Porcine) (Heparin 10 Unit/ ml 5 ml Flush) 5 ml PRN PRN FLUSH 02/18/17 00:15 03/20/17 00:14 Amiodarone HCL/ Dextrose 200 ml @ 16.7 mls/hr [id number] IV 02/18/17 10:00 03/20/17 09:59 02/20/17 07:38 16.7 MLS/HR Norepinephrine Bitartrate 8 mg/ Dextrose 508 ml @ 0 mls/hr Q0M PRN IV 02/18/17 12:30 03/20/17 12:29 02/19/17 13:14 17.4 MLS/HR Fentanyl Citrate (Fentanyl Inj) 100 mcg Q1HWA PRN IV 02/20/17 08:30 03/06/17 08:29 Enteral Nutritional Formula (Impact 1.0 Shyam) 1,000 ml UD OG 02/20/17 09:30 03/22/17 09:29 02/20/17 11:33 1,000 ML Vital Signs: Date Time Temp Pulse Resp B/P (MAP) Pulse Ox O2 Delivery O2 Flow Rate FiO2 02/20/17 12:00 37.6 94 20 123/52 (75) 94 Mechanical Ventilator 30 02/20/17 12:00 Mechanical Ventilator 30 02/20/17 12:00 30 02/20/17 11:21 30 02/20/17 10:00 37.2 81 8 120/54 (76) 94 Mechanical Ventilator 30 02/20/17 08:15 37.2 77 20 118/52 (74) 96 Mechanical Ventilator 30 02/20/17 08:00 Mechanical Ventilator 30 02/20/17 08:00 30 02/20/17 07:54 30 02/20/17 06:00 37.3 95 20 111/51 (71) 93 Mechanical Ventilator 30 02/20/17 05:30 37.3 84 20 128/60 (82) 95 Mechanical Ventilator 30 02/20/17 05:00 35 02/20/17 05:00 37.4 80 20 114/56 (75) 96 Mechanical Ventilator 30 02/20/17 04:30 37.4 81 20 97/47 (64) 95 Mechanical Ventilator 35 02/20/17 04:00 35 02/20/17 04:00 95 Mechanical Ventilator 35 02/20/17 04:00 37.4 78 20 116/50 (72) 96 35 02/20/17 03:30 37.4 79 20 119/52 (74) 97 35 02/20/17 03:00 37.5 80 20 122/52 (75) 96 Mechanical Ventilator 35 02/20/17 02:30 37.5 78 20 120/51 (74) 95 Mechanical Ventilator 35 02/20/17 02:00 35 02/20/17 02:00 37.5 80 20 136/55 (82) 96 02/20/17 01:30 37.5 76 20 132/55 (80) 96 02/20/17 01:00 37.5 80 20 114/48 (70) 95 Mechanical Ventilator 35 02/20/17 00:30 37.6 78 20 106/49 (68) 95 Mechanical Ventilator 35 02/20/17 00:00 37.6 77 20 124/50 (74) 95 Mechanical Ventilator 35 02/20/17 00:00 95 Mechanical Ventilator 35 02/20/17 00:00 35 02/19/17 23:30 37.6 84 20 115/55 (75) 93 Mechanical Ventilator 35 02/19/17 23:00 37.6 76 20 126/53 (77) 96 Mechanical Ventilator 35 02/19/17 22:55 45 02/19/17 21:31 37.7 74 20 126/50 (75) 98 Mechanical Ventilator 45 02/19/17 21:30 37.7 76 20 124/50 (74) 98 02/19/17 21:15 37.8 71 20 130/52 (78) 98 02/19/17 21:01 37.8 76 20 130/53 (78) 98 02/19/17 21:00 37.8 74 20 128/54 (78) 98 02/19/17 20:45 37.8 73 20 127/50 (75) 98 02/19/17 20:31 37.9 77 22 121/50 (73) 97 02/19/17 20:30 37.9 77 20 126/50 (75) 97 Mechanical Ventilator 45 02/19/17 20:26 45 02/19/17 20:06 37.9 73 20 112/60 (77) 97 02/19/17 20:01 37.9 74 20 108/49 (68) 97 02/19/17 20:00 37.9 73 20 111/51 (71) 97 Mechanical Ventilator 45 02/19/17 19:31 38.0 74 20 111/44 (66) 97 02/19/17 19:30 45 02/19/17 19:30 98 Mechanical Ventilator 45 02/19/17 19:30 38.0 73 20 112/44 (66) 97 02/19/17 19:01 38.0 76 20 122/49 (73) 97 Mechanical Ventilator 45 02/19/17 19:00 38.0 75 20 124/51 (75) 97 02/19/17 18:05 45 02/19/17 18:00 37.8 78 20 111/57 (75) 99 Mechanical Ventilator 45 02/19/17 16:00 45 02/19/17 16:00 95 Mechanical Ventilator 45 02/19/17 16:00 37.8 79 20 122/47 (72) 95 Mechanical Ventilator 45 02/19/17 14:50 45 02/19/17 14:00 37.5 74 20 129/47 (74) 95 Mechanical Ventilator 45 Laboratory Results: Last 24 Hours Test 02/19/17 14:04 02/19/17 17:50 02/19/17 22:02 02/20/17 02:00 Bedside Glucose (other) 132 mg/dl 159 mg/dl 131 mg/dl Bedside Glucose 121 mg/dl Test 02/20/17 05:24 02/20/17 05:30 02/20/17 10:29 White Blood Count 6.17 K/uL Red Blood Count 4.64 M/uL Hemoglobin 14.8 g/dL Hematocrit 43.8 % Mean Corpuscular Volume 94.4 fL Mean Corpuscular Hemoglobin 31.9 pg Mean Corpuscular Hemoglobin Concent 33.8 g/dl Platelet Count 118 K/uL Mean Platelet Volume 11.6 fL Neutrophils (%) (Auto) 78.7 % Lymphocytes (%) (Auto) 14.4 % Monocytes (%) (Auto) 5.7 % Eosinophils (%) (Auto) 0.5 % Basophils (%) (Auto) 0.2 % Neutrophils # (Auto) 4.86 K/uL Lymphocytes # (Auto) 0.89 K/uL Monocytes # (Auto) 0.35 K/uL Eosinophils # (Auto) 0.03 K/uL Basophils # (Auto) 0.01 K/uL RDW Standard Deviation 53.8 fL RDW Coefficient of Variation 15.6 % Immature Granulocyte % (Auto) 0.5 % Immature Granulocyte # (Auto) 0.03 K/uL Prothrombin Time 11.4 SECONDS Prothromb Time International Ratio 1.1 Activated Partial Thromboplast Time 44.1 SECONDS Partial Thromboplastin Ratio 1.7 Sodium Level 135 mmol/L Potassium Level 4.0 mmol/L Chloride Level 103 mmol/L Carbon Dioxide Level 29 mmol/L Anion Gap 3.0 mmol/L Blood Urea Nitrogen 26 mg/dl Creatinine 1.24 mg/dl Est Creatinine Clear Calc Drug Dose 57.4 ml/min Estimated GFR () 66.0 Estimated GFR (Non- 56.9 BUN/Creatinine Ratio 20.8 Random Glucose 125 mg/dl Calcium Level 8.4 mg/dl Phosphorus Level 3.2 mg/dl Magnesium Level 2.4 mg/dl Total Bilirubin 0.8 mg/dl Direct Bilirubin 0.3 mg/dl Aspartate Amino Transf (AST/SGOT) 34 U/L Alanine Aminotransferase (ALT/SGPT) 36 U/L Alkaline Phosphatase 100 U/L Total Protein 5.4 gm/dl Albumin 2.1 gm/dl Bedside Glucose (other) 128 mg/dl 125 mg/dl
[2017-02-20 14:12] LABS: PTT PATIENT 46.6 SECONDS (21.0-31.0)
--- NOTE | 2017-02-20 14:35 | DIAGNOSTIC IMAGING REPORT ---
CHEST ONE VIEW PORTABLE CLINICAL HISTORY: desaturation, PTX CT in place with significant air leak COMPARISON STUDY: 02/20/2017 7:10 AM FINDINGS: Endotracheal tube 4.5 cm both mickie. Right-sided chest tube unchanged in position. Subcutaneous emphysema stable. Potential minimal right basilar pneumothorax. Infiltrative change left base similar. IMPRESSION: Endotracheal tube 4.5 cm both mickie. Unchanging left basilar infiltrate. Unchanging subcutaneous emphysema. Minimal right basilar pneumothorax. The above report was generated using voice recognition software. It may contain grammatical, syntax or spelling errors. Electronically signed by: Ariel Miller M.D. 02/20/2017 2:34 PM Dictated Date/Time: 02/20/2017 2:31 PM
--- NOTE | 2017-02-20 18:57 | Progress Note ---
Internal Med Progress Note Date of Service: Feb 20, 2017. Provider Documentation: SUBJECTIVE: remains intubated failed weaning attempt OBJECTIVE: Vital Signs-as noted below Exam: General-intubated , still unresponsive , Eyes-bilateral pin point pupil ( due to IV Fentanyl gtt ) ENT-ET tube in place Neck-Rt IJ present , rt lower neck crepitus + ( subcutaneous emphysema ) Lungs-diminished on right , + rales , Chest tube on rt side Heart-regular Abdomen-soft, Extremities-no edema noted Neuro-unresponsive /on vent /sedation being weaned off nursing mentions of pt moving arms while providing oral care Lab data as noted below. ASSESSMENT & PLAN: VTACH CARDIAC ARREST : 02/20 : remains intubated continued CPAP trial 02/19/17 : taken off Hypothermic protocol , Body core temp at normal 37.5 started to wean off sedation ( required large amount of sedation : Fentanyl @ 200 mcq, Versed @ 10mg/h ) cont CPAP trial appreciate input /help from [employer] rt sided Chest tube remains in air seal converted to sinus rhythm /rate controlled @ 60's , on Amiodarone gtt improved Qtc on IV Heparin gtt on Dobutamine and Levophed gtt if pt able to recover enough to be extubated without neurological deficit will benefit with AICD placement during this hospital cardiology following 02/18/2017: HX of CAD with ischemic cardiomyopathy , CHF with combined systolic and diastolic HF ; EF < 30 % presented with Vtach cardiac arrest pt was placed on Zoll Life vest - became unresponsive at home , followed by shock therapy by life vest pt was shocked once by the life vest at home , and twice in ED developed Vtach Cardiac arrest -leading to CPR -admitted to ICU intubated/ started on Pressors -was placed on hypothermic protocol s/p right IJ central venous -placement by forestry farm laborer A right radial arterial line was inserted for continuous monitoring of blood pressures while on multiple vasopressors. developed pneumothorax with extensive Rt sided sub q emphysema due to CPR Cxray shows 02/16/17 : Rt sided pneumothorax with max pleural separation of 1.4 cm s/p rt right chest tube placement while in ICU , cardiac rhythm changed to Afib on amiodarone gtt /IV heparin started due arrhythmia -Afib appreciate input form Cardiology warming process started this morning appreciate help and input form the forestry farm laborer if pt is able to recover with adequate neurological capacity will need AICD placement AFIB : paroxysmal Afib due to cardiogenic shock / hypoxia on Amiodarone gtt converted to sinus with rate controlled rhythm IV heparin gtt appreciate cardiology input ELEVATED TROPONIN : due to Vtach cardiac arrest /aggressive CPR doubt due to acute PR /atherothrombotic plaque rupture Kris 0.40-> 10-> 11-> 8.4 ECHO 02/16/17 : thinning and scar of the inferior base, posterior and inferolateral ye. Septal motion is consistent with conduction abnormality. moderate apical wall hypokinesis. inferior wall akinesis. posterior wall akinesis. Ejection Fraction = 25-30%. ECHO unchanged from prior study on 12/2016 Cardiology following closely ROBERTO ON CKD STAGE 3 : due to Cardiac arrest /hypoperfusion of organs cr remains in 1.6 urine out put improved : 1227 input/1585 output (300 from OG suction , 1275 -Urine out put ). on Dopamine gtt /SBP stable in 100-110 TYPE 2 DM : on Insulin gtt 8U /hr pharmacy following for glycemic management LACTIC ACIDOSIS : resolved Lactic acid 1.2 -after adequate tissue perfusion establish with Hypothermic protocol /pressors lactic acid was > 2 , with out any evidence of infection or sepsis due to Cardiogenic shock /organ /tissue hypoperfusion Supportive care provided with IV pressors /Hypothermic protocol PROLONG Qtc : improved today Qtc 534 -> 503 monitor closely while on amiodarone gtt daily EKG ordered follow daily BMP /mg level DVT PROPHYLAXIS iv heparin DNR /DNI DISPOSITION remains critically ill in ICU Vital Signs: Date Time Temp Pulse Resp B/P (MAP) Pulse Ox O2 Delivery O2 Flow Rate FiO2 02/21/17 18:20 37.1 90 20 98/53 (68) 95 Mechanical Ventilator 30 124/98 (107) 02/21/17 18:09 30 02/21/17 16:15 37.3 77 20 88/57 (67) 96 02/21/17 16:01 37.2 81 21 110/46 (67) 97 02/21/17 16:00 37.2 78 24 97/42 (60) 95 02/21/17 16:00 Mechanical Ventilator 30 02/21/17 16:00 37.1 82 20 102/55 (71) 97 Mechanical Ventilator 30 104/49 (67) 02/21/17 16:00 30 02/21/17 15:45 37.2 84 21 100/47 (64) 96 02/21/17 15:30 37.2 81 23 96/47 (63) 96 02/21/17 15:28 30 02/21/17 15:15 37.2 79 20 102/47 (65) 96 02/21/17 15:00 37.2 82 22 100/44 (62) 94 02/21/17 14:45 37.1 82 23 94/72 (79) 96 02/21/17 14:30 37.1 80 21 120/42 (68) 95 02/21/17 14:24 30 02/21/17 14:15 37.1 83 23 113/41 (65) 94 02/21/17 14:01 37.0 78 20 119/43 (68) 95 02/21/17 14:00 37.0 82 20 111/41 (64) 95 02/21/17 13:45 37.0 81 20 115/42 (66) 94 02/21/17 13:30 37.0 78 22 116/42 (66) 94 02/21/17 13:15 37.0 83 23 119/45 (69) 95 02/21/17 13:00 37.0 83 21 113/40 (64) 94 02/21/17 12:30 37.0 73 20 111/41 (64) 94 02/21/17 12:01 37.0 79 20 102/38 (59) 95 02/21/17 12:00 37.0 74 20 110/27 (54) 95 02/21/17 12:00 30 02/21/17 12:00 Mechanical Ventilator 30 02/21/17 11:30 37.1 80 20 98/51 (67) 93 Mechanical Ventilator 30 109/37 (61) 02/21/17 11:30 37.0 75 20 100/37 (58) 93 02/21/17 11:29 37.0 75 20 105/39 (61) 93 02/21/17 11:18 30 02/21/17 11:00 37.1 69 20 114/47 (69) 93 02/21/17 10:30 37.2 81 20 108/44 (65) 93 02/21/17 10:01 37.4 72 20 114/45 (68) 94 02/21/17 10:00 37.4 83 25 115/46 (69) 94 02/21/17 09:46 88 22 107/51 (69) 02/21/17 09:30 0 02/21/17 09:00 37.4 79 20 103/43 (63) 94 02/21/17 08:30 37.4 78 20 95/40 (58) 92 02/21/17 08:01 37.4 79 20 96/43 (60) 92 02/21/17 08:00 30 02/21/17 08:00 37.4 79 20 106/46 (66) 92 02/21/17 07:30 Mechanical Ventilator 30 02/21/17 07:30 30 02/21/17 07:30 36.9 80 20 110/72 (85) 93 Mechanical Ventilator 30 114/78 (90) 02/21/17 07:30 37.4 83 20 116/62 (80) 94 02/21/17 07:16 30 02/21/17 07:00 37.3 82 20 118/52 (74) 94 02/21/17 06:00 85 20 113/59 (77) 93 Mechanical Ventilator 30 02/21/17 05:00 30 02/21/17 04:03 37.4 85 20 115/57 (76) 93 Mechanical Ventilator 30 02/21/17 04:01 30 02/21/17 04:00 93 Mechanical Ventilator 30 02/21/17 02:20 30 02/21/17 02:00 82 20 111/58 (75) 94 Mechanical Ventilator 30 02/21/17 00:01 37.3 85 20 118/68 (85) 92 Mechanical Ventilator 30 02/20/17 23:59 30 02/20/17 23:59 Mechanical Ventilator 30 02/20/17 23:12 30 02/20/17 22:00 83 20 120/56 (77) 94 Mechanical Ventilator 30 02/20/17 20:06 30 02/20/17 20:00 30 02/20/17 20:00 36.8 91 20 108/47 (67) 95 Mechanical Ventilator 30 02/20/17 20:00 95 Mechanical Ventilator 30 Lab Results: Results Past 24 Hours Test 02/20/17 20:09 02/20/17 22:37 02/21/17 02:42 02/21/17 03:54 Range/Units Activated Partial Thromboplast Time 53.3 21.0-31.0 SECONDS Partial Thromboplastin Ratio 2.1 Bedside Glucose (other) 156 203 184 70-99 mg/dl Test 02/21/17 05:10 02/21/17 05:11 02/21/17 06:13 02/21/17 07:36 Range/Units Bedside Glucose (other) 143 134 151 70-99 mg/dl White Blood Count 6.74 4.8-10.8 K/uL Red Blood Count 4.36 4.7-6.1 M/uL Hemoglobin 14.2 14.0-18.0 g/dL Hematocrit 41.3 42-52 % Mean Corpuscular Volume 94.7 80-100 fL Mean Corpuscular Hemoglobin 32.6 25-34 pg Mean Corpuscular Hemoglobin Concent 34.4 32-36 g/dl Platelet Count 116 130-400 K/uL Mean Platelet Volume 11.1 7.4-10.4 fL Neutrophils (%) (Auto) 76.5 % Lymphocytes (%) (Auto) 12.8 % Monocytes (%) (Auto) 8.3 % Eosinophils (%) (Auto) 1.9 % Basophils (%) (Auto) 0.1 % Neutrophils # (Auto) 5.15 1.4-6.5 K/uL Lymphocytes # (Auto) 0.86 1.2-3.4 K/uL Monocytes # (Auto) 0.56 0.11-0.59 K/uL Eosinophils # (Auto) 0.13 0-0.5 K/uL Basophils # (Auto) 0.01 0-0.2 K/uL RDW Standard Deviation 54.1 36.4-46.3 fL RDW Coefficient of Variation 15.5 11.5-14.5 % Immature Granulocyte % (Auto) 0.4 % Immature Granulocyte # (Auto) 0.03 0.00-0.02 K/uL Prothrombin Time 10.9 9.0-12.0 SECONDS Prothromb Time International Ratio 1.0 0.9-1.1 Activated Partial Thromboplast Time 42.0 21.0-31.0 SECONDS Partial Thromboplastin Ratio 1.6 Sodium Level 137 136-145 mmol/L Potassium Level 3.9 3.5-5.1 mmol/L Chloride Level 103 98-107 mmol/L Carbon Dioxide Level 28 21-32 mmol/L Anion Gap 6.0 3-11 mmol/L Blood Urea Nitrogen 22 7-18 mg/dl Creatinine 1.06 0.60-1.40 mg/dl Est Creatinine Clear Calc Drug Dose 65.4 ml/min Estimated GFR () 79.7 Estimated GFR (Non- 68.8 BUN/Creatinine Ratio 21.1 10-20 Random Glucose 135 70-99 mg/dl Calcium Level 8.2 8.5-10.1 mg/dl Phosphorus Level 2.6 2.5-4.9 mg/dl Magnesium Level 2.2 1.8-2.4 mg/dl Total Bilirubin 0.8 0.2-1 mg/dl Direct Bilirubin 0.4 0-0.2 mg/dl Aspartate Amino Transf (AST/SGOT) 35 15-37 U/L Alanine Aminotransferase (ALT/SGPT) 33 12-78 U/L Alkaline Phosphatase 122 45-117 U/L Total Protein 5.5 6.4-8.2 gm/dl Albumin 1.9 3.4-5.0 gm/dl Test 02/21/17 08:54 02/21/17 10:13 02/21/17 11:31 02/21/17 12:06 Range/Units Bedside Glucose (other) 221 200 180 166 70-99 mg/dl Test 02/21/17 12:44 02/21/17 14:09 02/21/17 15:16 02/21/17 15:56 Range/Units Activated Partial Thromboplast Time 60.6 21.0-31.0 SECONDS Partial Thromboplastin Ratio 2.3 Bedside Glucose (other) 211 70-99 mg/dl Bedside Glucose 209 219 70-99 mg/dl Test 02/21/17 16:47 Range/Units Bedside Glucose 189 70-99 mg/dl
[2017-02-20 20:46] LABS: PTT PATIENT 53.3 SECONDS (21.0-31.0)
[2017-02-20] MEDS: DOCUSATE SODIUM 100 MG/10 ML UDC PO SCH (21:16)
[2017-02-21] VITALS (45 sets, daily range): BP systolic 88–124; BP diastolic 27–98; PULSE 69–97; TEMP 36.9–37.4; O2SAT 92–99
[2017-02-21] MEDS: [UNRECOGNIZED DRUG - OTHER] IV PRN ×2 (00:16→08:41)
[2017-02-21] MEDS: DOPAMINE 400 MG IV PRN ×2 (00:16→08:41)
[2017-02-21] MEDS: INSULIN REGULAR 250 UNITS in SODIUM CHLORIDE 0.9% 250ML 250 ML IV SCH (05:18)
[2017-02-21] MEDS: FAMOTIDINE IV INJ 20 MG in SYRINGE 3 ML IV SCH ×2 (05:19→18:27)
[2017-02-21 05:40] LABS: BASO % 0.1 %; BASO ABS # 0.01 K/uL (0-0.2); EOS % 1.9 %; EOS ABS # 0.13 K/uL (0-0.5); HEMATOCRIT 41.3 % (42-52); HEMOGLOBIN 14.2 g/dL (14.0-18.0); IG# 0.03 K/uL (0.00-0.02); LYMPH % 12.8 %; LYMPH ABS # 0.86 K/uL (1.2-3.4); MEAN CELL VOLUME 94.7 fL (80-100); MEAN CORPUSCULAR HEMOGLOBIN 32.6 pg (25-34); MEAN CORPUSCULAR HGB CONC 34.4 g/dl (32-36); MEAN PLATELET VOLUME 11.1 fL (7.4-10.4); MONO % 8.3 %; MONO ABS # 0.56 K/uL (0.11-0.59); NEUT % 76.5 %; NEUT ABS # 5.15 K/uL (1.4-6.5); PLATELET COUNT 116 K/uL (130-400); RED CELL DISTRIBUTION WIDTH CV 15.5 % (11.5-14.5); RED CELL DISTRIBUTION WIDTH SD 54.1 fL (36.4-46.3); WHITE BLOOD COUNT 6.74 K/uL (4.8-10.8)
[2017-02-21 06:08] LABS: ALBUMIN 1.9 gm/dl (3.4-5.0); CALCIUM 8.2 mg/dl (8.5-10.1); CREATININE 1.06 mg/dl (0.60-1.40); POTASSIUM 3.9 mmol/L (3.5-5.1)
[2017-02-21 06:14] LABS: PHOSPHORUS 2.6 mg/dl (2.5-4.9); TOTAL PROTEIN 5.5 gm/dl (6.4-8.2)
[2017-02-21] MEDS ORDERED: HEPARIN IV BOLUS 3,000 UNIT in SYRINGE 0 ML IV ONE (07:00)
[2017-02-21] MEDS: IPRATROPIUM BROMIDE HFA INHALER INH SCH ×4 (07:15→19:42)
[2017-02-21] MEDS: ALBUTEROL HFA 8 GM INHALER INH SCH ×4 (07:15→19:42)
--- NOTE | 2017-02-21 07:37 | DIAGNOSTIC IMAGING REPORT ---
CHEST ONE VIEW PORTABLE HISTORY: 76 years-old Male follow up PTX. Follow-up study to assess pneumothorax COMPARISON: Chest radiographs 02/20/2017 at 2:21 PM and 7:10 AM TECHNIQUE: Portable upright AP view of the chest FINDINGS: Endotracheal tube overlies the midline, 3.9 cm superior to the mickie. Heart is moderately enlarged. Atherosclerosis of the aorta. Large bore right-sided chest tube is unchanged in positioning. Tiny residual right apical pneumothorax. There is a large amount of subcutaneous emphysema over the lateral right chest wall redemonstrated. Right internal jugular central venous catheter is unchanged. Enteric tube courses below the diaphragm with distal tip terminating in the region of the gastric lumen. Pulmonary vascular congestion with bibasilar opacities and small left pleural effusion. Likely chronic appearing fracture involves the lateral aspect of the left sixth rib. IMPRESSION: 1. Endotracheal tube overlies the midline, 3.9 cm superior to the mickie. 2. Stable positioning of right-sided chest tube with persistent right chest wall subcutaneous emphysema and trace right pneumothorax. 3. Cardiomegaly with pulmonary vascular congestion, bibasilar opacities and small left pleural effusion. The above report was generated using voice recognition software. It may contain grammatical, syntax or spelling errors. Electronically signed by: Wellington Mercado M.D. 02/21/2017 7:36 AM Dictated Date/Time: 02/21/2017 7:23 AM
[2017-02-21] MEDS: INSULIN ASPART 100 UNITS/ML 3 ML PEN SC SCH ×4 (08:00→21:00)
[2017-02-21] MEDS: AMIODARONE / D5W 200 ML IV SCH (08:42)
[2017-02-21] MEDS ORDERED: AMIODARONE 200 MG TAB PO ONE (09:15)
--- NOTE | 2017-02-21 09:52 | DIAGNOSTIC IMAGING REPORT ---
CT OF THE HEAD WITHOUT CONTRAST CLINICAL HISTORY: Anoxic brain injury. Cardiac arrest. COMPARISON STUDY: Head CT February 17, 2017. TECHNIQUE: Helical axial images of the head were obtained without IV contrast. Automated exposure control was utilized for the study. A dose lowering technique was utilized adhering to the principles of ALARA. FINDINGS: No acute intracranial hemorrhage, midline shift or mass effect is present. Ventricular system is stable. Basilar cisterns are patent. Mild white matter hypodensity suggests small vessel disease. There are no findings to suggest acute dural sinus thrombosis or acute territorial infarct. The appearance of the brain is unchanged. There is mild mucosal thickening of the sinuses. Mastoid air cells are clear. There are no calvarial fractures. IMPRESSION: No acute intracranial findings. No change since exam of February 17, 2017. Preserved colin-white differentiation without CT evidence of cerebral edema/anoxic injury. Electronically signed by: Olivier Iniguez M.D. 02/21/2017 9:51 AM Dictated Date/Time: 02/21/2017 9:47 AM
--- NOTE | 2017-02-21 10:13 | DIAGNOSTIC IMAGING REPORT ---
(CHEST) THORAX WITHOUT CT DOSE: 2095.97 mGy.cm CLINICAL HISTORY: 76 years-old Male with iatrogenic PTX with persistent leak. Persistent pneumothorax follow-up. TECHNIQUE: Multiaxial CT images of the chest were performed without contrast. A dose lowering technique was utilized adhering to the principles of ALARA. COMPARISON: CT chest 02/17/2017, chest radiograph 02/21/2017. FINDINGS: No dominant thyroid nodule identified. No pathologic adenopathy of the chest identified. Moderate multichamber cardiac enlargement with coronary arterial disease. No thoracic aortic aneurysm identified. There is moderate atherosclerosis of the aorta. Endotracheal tube is present within the trachea, 2.7 cm superior to the mickie. Enteric tube is present within the esophagus with distal tip terminating within the distal gastric body. Right-sided chest tube is present which courses through the lung parenchyma with distal tip adjacent to the medial right lung apex. Fluid is noted within the chest tube. Small right-sided pneumothorax redemonstrated with pleural separation measuring up to 3.0 cm at the level of the right lung base, previously 1.4 cm. Considerable amount of subcutaneous and deep tissue emphysema throughout the right chest redemonstrated which has decreased from comparison study 02/17/2017. Trace amount of pleural fluid is present on the right with small left pleural effusion. Bilateral dependent consolidative opacities are present. No left-sided pneumothorax. Heterogeneous 2.6 x 2.7 cm lesion of the superior spleen containing areas of apparent calcification again seen, unchanged from comparison. Acute fractures are again seen involving the right second, third, fourth, fifth, sixth, and seventh ribs, some of which again demonstrates mild displacement. IMPRESSION: 1. Increased size of small right pneumothorax now with maximum pleural separation of 3 cm, previously 1.[address] study dated 02/17/2017. Intraparenchymal course of the right-sided chest tube which demonstrates intraluminal fluid terminates adjacent to the medial right lung apex. Decreased amount of extensive right chest wall subcutaneous and deep tissue emphysema. 2. Trace right and small left pleural effusions with bibasilar dependent consolidation suggesting atelectasis and/or pneumonitis. 3. Endotracheal tube terminates 2.7 cm superior to the mickie. Enteric tube terminates within the distal gastric body. Electronically signed by: Wellington Mercado M.D. 02/21/2017 10:12 AM Dictated Date/Time: 02/21/2017 10:00 AM
[2017-02-21] MEDS: POLYETHYLENE (MIRALAX) 17 GM PACK PO SCH (10:37)
[2017-02-21] MEDS: LACTULOSE SYRUP 30 GM/45 ML UDP PO SCH ×3 (10:37→21:02)
[2017-02-21] MEDS: DOCUSATE SODIUM 100 MG/10 ML UDC PO SCH ×2 (10:37→21:02)
[2017-02-21] MEDS ORDERED: LIDOCAINE HCL 1% 20 ML VIAL ONE ×2 (10:48→14:39)
[2017-02-21] MEDS: HEPARIN 25,000 UNIT/500ML D5W 500 ML IV PRN (11:58)
--- NOTE | 2017-02-21 11:58 | CARDIOLOGY PROGRESS NOTE ---
DATE: 02/21/2017 DATE: 02/21/2017 The patient seen and examined. Chart, medications, telemetry reviewed. SUBJECTIVE: The patient remains intubated. He is off sedation. He does posture and move extremities to noxious stimuli. Notes hemodynamic stability overnight. No recent arrhythmias. The patient remains on IV amiodarone. Dopamine is being weaned as is norepinephrine infusions. OBJECTIVE: VITAL SIGNS: Heart rate is 85, blood pressure is 113/59, O2 saturations 93% on the ventilator. HEAD, EYES, EARS, NOSE, AND THROAT: Notable for minimally responsive pupils. Endotracheal tube is orally placed. NECK: Thick. There is no distinct jugular venous distention. LUNGS: Reveal coarse upper airway sounds. CARDIOVASCULAR: Regular. There is no S3 gallop. ABDOMEN: Soft. EXTREMITIES: Reveal significant edema. DATA: EKG this morning reveals sinus rhythm with occasional ventricular ectopic beats, rate of 90, chronic left bundle branch block. LABORATORY STUDIES: White cell count 6.7, hemoglobin is 14.2. Sodium is 137, potassium 3.9, chloride is 103, bicarbonate is 28, BUN is 22, creatinine is 1.06, albumin level is 1.9. IMPRESSION: A 76-year-old critically ill male who suffered out of hospital arrest with resuscitation via LifeVest and ultimately ER resuscitation on presentation extended course. Has now undergone central cooling and rewarming though neurologic response has been slow to return. RECOMMENDATIONS: From cardiac standpoint as pressors are weaned would switch amiodarone to oral at 200 mg twice per day after full IV loading dose has been administered. Would also resume beta jeffry with metoprolol 12.5 mg twice per day, infuse via NG tube as blood pressure allows. Would consider reintroduction of losartan. Discussed findings in detail with family available. Anticipates head and chest CT today. Further interventions from cardiac standpoint would be dependent on neurologic response. MTDD
--- NOTE | 2017-02-21 12:34 | DIAGNOSTIC IMAGING REPORT ---
CHEST ONE VIEW PORTABLE CLINICAL HISTORY: pig tail catheter, anterior chest , right sided. Postoperative evaluation COMPARISON STUDY: 02/21/2017. FINDINGS: Endotracheal tube 4 cm both mickie. Lungs are grossly clear. Mild left and to lesser extent right basilar atelectasis. Right-sided pigtail chest catheter in good position. No significant postprocedural pneumothorax. Subcutaneous emphysema similar. IMPRESSION: Stable postoperative change. No significant postprocedural pneumothorax. Nasogastric tube within the stomach. Endotracheal tube 4 cm above the mickie. The above report was generated using voice recognition software. It may contain grammatical, syntax or spelling errors. Electronically signed by: Ariel Miller M.D. 02/21/2017 12:33 PM Dictated Date/Time: 02/21/2017 12:31 PM
[2017-02-21 13:22] LABS: PTT PATIENT 60.6 SECONDS (21.0-31.0)
--- NOTE | 2017-02-21 14:27 | Procedure Note ---
Procedure Note Procedure Date Feb 21, 2017. Procedure Description Procedure time out: side/site verified Consent obtained: emergent consent implied Performed by: attending, PA student Indications: therapeutic Contraindications: none
--- NOTE | 2017-02-21 14:28 | DIAGNOSTIC IMAGING REPORT ---
CHEST ONE VIEW PORTABLE HISTORY: PRE-REMOVAL OF RIGHT AXILLARY CHEST TUBE. COMPARISON: Chest 02/21/2017. FINDINGS: There again noted 2 right-sided chest tubes which are unchanged in position. Right jugular central venous catheter terminates at the SVC/brachiocephalic junction. This is unchanged in position. Nasogastric tube terminates below the diaphragm. The tip is not included on this study. No definite pneumothorax. The heart remains mildly enlarged. Small left pleural effusion and left basilar linear densities persist. Endotracheal tube terminates approximately 5.5 cm from the mickie. Right chest wall subcutaneous emphysema, unchanged. IMPRESSION: 1. The endotracheal tube terminates 5.5 cm from the mickie. This could be advanced by approximately 2 cm. 2. Right-sided chest tubes are unchanged in position. No definite pneumothorax. 3. Small left pleural effusion and left basilar densities persist. Electronically signed by: Akash Morocho M.D. 02/21/2017 2:27 PM Dictated Date/Time: 02/21/2017 2:22 PM
--- NOTE | 2017-02-21 15:11 | DIAGNOSTIC IMAGING REPORT ---
ORBIT RADIOGRAPHS 3 VIEWS HISTORY: pre-MRI screening. COMPARISON: Head CT February 21, 2017. FINDINGS: There are no radiopaque foreign bodies identified within the orbits. Endotracheal and nasogastric tubes are incidentally noted. IMPRESSION: No radiopaque foreign bodies identified within the orbits. Electronically signed by: Olivier Iniguez M.D. 02/21/2017 3:10 PM Dictated Date/Time: 02/21/2017 3:10 PM
--- NOTE | 2017-02-21 15:16 | DIAGNOSTIC IMAGING REPORT ---
CHEST ONE VIEW PORTABLE CLINICAL HISTORY: POST RIGHT MID-AXILLARY CHEST TUBE REMOVAL. COMPARISON STUDY: Chest radiograph February 21, 2017 at 1:[address] performed earlier today. FINDINGS: Tip of endotracheal tube is 4.4 cm above the mickie. Tip of nasogastric tube is below lower aspect of but at least within the proximal stomach. A right-sided large-bore chest tube has been removed. Right pleural pigtail catheter remains in place. Subcutaneous venous gas within the neck and right chest wall is again noted. A suspected small apical pneumothorax is present. Bibasilar opacities persist. A right internal jugular central line is in place. IMPRESSION: 1. Interval removal of large bore right chest tube. Suspected trace right apical pneumothorax. Right pleural pigtail catheter remains in place. 2. Satisfactory positioning of endotracheal and nasogastric tubes. Electronically signed by: Olivier Iniguez M.D. 02/21/2017 3:15 PM Dictated Date/Time: 02/21/2017 3:10 PM
[2017-02-21] MEDS: APIXABAN 2.5 MG TAB PO SCH ×2 (16:01→23:30)
--- NOTE | 2017-02-21 17:08 | Critical Care Progress Note ---
Critical Care Progress Note Date of Service Feb 21, 2017. Attending Dr. Porras Subjective Review of systems is not obtainable. The patient remains agitated to touch and painful stimuli. Does not focus or follow commands. Objective remains vented , sedated, under TTM. The patient completed his TTM, he started on a warming process, blood pressure dropped slightly requiring increasing dose of dopamine and adding Levophed. EEG did not reveal seizure activity in the past 24 hours. Urine output has been adequate. Subcutaneous emphysema on the right side has been stable. No air leak from the chest tube. His physical exam today revealed was sedated gentleman currently does not appear to be in any respiratory distress, his vital signs remained stable. Heart examination S1-S2 regular rate and rhythm. Mild bradycardia. Lungs with distant crackles right greater than left due to subcutaneous emphysema. Chest tube site appears to be clean. Abdomen is benign with subcutaneous emphysema trace edema in the periphery. Neurologic he is difficult to assess. Pupils are remains reactive. On 02/19/2017, the patient continued to be intubated. We were able to wean his sedation to off. Minimal leak from the chest tube was noted and likely related to defect in the tubing. Subcutaneous emphysema has been stable. On 02/20/2017, the patient remains intubated, moving mildly, does not have any purposeful movement or following commands, remains sedated although he has been off sedatives for at least 48 hours. His heart examination S1-S2 regular rate and rhythm, subcutaneous emphysema protruding good auscultation of the chest, abdomen is benign, trace edema in the periphery. Neurologically is difficult to assess. On 02/21/2017, the patient is intubated, not sedated, nonpurposeful movement noted, vital signs remained stable, the patient is off pressors, no JVP, subcutaneous emphysema has been stable, S1-S2 regular rate and rhythm, lungs were distant crackles likely from subcutaneous emphysema. Abdomen is benign no edema. Neurologically difficult to assess. Current SOFA Score SOFA Score Response (Comments) Value PaO2/FiO2 (mmHg) < 400 1 Platelets (x10) > 150 0 Bilirubin (mg/dL) 1.2 - 1.9 1 Mary Coma Score 15 0 Level of Hypotension Dopamine > 5 mcq or Epi < 0.1 mcq 3 Creatinine (mg/dL) < 1.2 0 Total 5 Assessment & Plan #1 cardiac arrest, V. tach/V. fib/torsade. #2 iatrogenic pneumothorax status post thoracostomy tube. #3 paroxysmal A. fib. #4 acute respiratory failure secondary to above. #5 the patient remains comatose without response. His GCS in the range of 6-9. Distal doesn't follow any commands. Plan: #1 I have attempted to wake up the patient however he did not respond to me purposefully. The patient did not open his eyes to commands. Based on that, the patient underwent a head CT which did not reveal any particular changes consistent with anoxic brain injury. #2 I would obtain MRI to further evaluate his brain injury after the code if any. #3 meanwhile, I will consult neurology to help us out in evaluation of post code anoxic brain injury. #4 I would change amiodarone to 200 mg per G-tube twice a day. #5 I will stop dopamine and Levothroid. #6 continue with the tube feeding with impact. #7 I have removed the chest tube that was seen occluded on the CAT scan done today, I have placed anterior pigtail catheter to suction and water seal alternatively. #8 I have had a long discussion with the family regarding the plan and they are all in agreement with it. #9 I have change heparin to Eliquis via the OG tube twice a day. #10 after the patient returning from MRI, I would keep him on the assist control mode and attempt CPAP trials in the morning. Case discussed with the staff about and with the family in details. Critical care time spent with the patient was 45 minutes excluding procedure time. Consults & Procedures Consultants: cardiology Procedures: as previous. Data Medications: Current Inpatient Medications Medications (Trade) Dose Ordered Sig/Shakira Route Start Time Stop Time Status Last Admin Dose Admin Acetaminophen (Tylenol Tab) 650 mg Q4H PRN PO 02/17/17 02:30 03/19/17 02:29 Ondansetron HCl (Zofran Inj) 4 mg Q6H PRN IV 02/17/17 02:30 03/19/17 02:29 Artificial Tears (Lacri-Lube Oph Oint) 1 appln Q2H PRN OPB 02/17/17 03:15 03/19/17 03:14 Famotidine 20 mg/ Syringe 5 ml @ 2.5 mls/min Q12H IV 02/17/17 06:00 03/19/17 05:59 12/15/17 05:19 2.5 MLS/MIN Insulin Aspart (novoLOG ASPART) [facility] 02/17/17 08:00 03/19/17 08:59 Insulin Human Regular 250 units/ Sodium Chloride 252.5 ml @ 0 mls/hr Q24H IV 02/17/17 05:00 03/19/17 04:59 02/21/17 05:18 1 MLS/HR Glucose (Glucose 40% Gel) 15-30 GRAMS 15 GRAMS... UD PRN PO 02/17/17 05:15 03/19/17 05:14 Glucose (Glucose Chew Tab) 4-8 Tablets 4 Tabl... UD PRN PO 02/17/17 05:15 03/19/17 05:14 Dextrose (Dextrose 50% 50ML Syringe) 25-50ML OF 50% DW IV FOR... UD PRN IV 02/17/17 05:15 03/19/17 05:14 02/17/17 23:17 25 ML Glucagon (Glucagon Inj) 1 mg UD PRN SQ 02/17/17 05:15 03/19/17 05:14 Ipratropium [place] (Atrovent Hfa Inhaler) 4 puffs QIDR INH 02/17/17 08:00 03/19/17 07:59 02/21/17 15:28 4 PUFFS Albuterol (Ventolin Hfa Inhaler) 4 puffs QIDR INH 02/17/17 08:00 03/19/17 07:59 02/21/17 15:28 4 PUFFS Dopamine HCl/ Dextrose 250 ml @ 0 mls/hr Q0M PRN IV 02/17/17 16:13 03/19/17 16:12 02/21/17 08:41 20 MLS/HR Heparin Sodium (Porcine) (Heparin 10 Unit/ ml 5 ml Flush) 5 ml PRN PRN FLUSH 02/18/17 00:15 03/20/17 00:14 Enteral Nutritional Formula (Impact 1.0 Shyam) 1,000 ml UD OG 02/20/17 09:30 03/22/17 09:29 02/20/17 11:33 1,000 ML Docusate Sodium (coLACE SYRUP) 100 mg BID PO 02/20/17 21:00 03/22/17 20:59 02/21/17 10:37 100 MG Polyethylene (Miralax Powder Packet) 17 gm DAILY PO 02/21/17 09:00 03/23/17 08:59 02/21/17 10:37 17 GM Lactulose (Chronulac Syrup) 30 gm Q6H PO 02/21/17 09:00 03/23/17 08:59 02/21/17 16:01 30 GM Amiodarone HCl (Cordarone Tab) 200 mg BID PO 02/21/17 21:00 03/23/17 20:59 Apixaban (Eliquis Tab) 5 mg BID PO 02/21/17 16:00 03/23/17 15:59 02/21/17 16:01 5 MG I & O: 24-Hour Column 02/22/17 08:00 Intake Total 1026 ml Output Total 580 ml Balance 446 ml Vital Signs: Date Time Temp Pulse Resp B/P (MAP) Pulse Ox O2 Delivery O2 Flow Rate FiO2 02/21/17 15:28 30 02/21/17 14:24 30 02/21/17 12:30 37.0 73 20 111/41 (64) 94 02/21/17 12:01 37.0 79 20 102/38 (59) 95 02/21/17 12:00 37.0 74 20 110/27 (54) 95 02/21/17 12:00 30 02/21/17 12:00 Mechanical Ventilator 30 02/21/17 11:30 37.1 80 20 98/51 (67) 93 Mechanical Ventilator 30 109/37 (61) 02/21/17 11:30 37.0 75 20 100/37 (58) 93 02/21/17 11:29 37.0 75 20 105/39 (61) 93 02/21/17 11:18 30 02/21/17 11:00 37.1 69 20 114/47 (69) 93 02/21/17 10:30 37.2 81 20 108/44 (65) 93 02/21/17 10:01 37.4 72 20 114/45 (68) 94 02/21/17 10:00 37.4 83 25 115/46 (69) 94 02/21/17 09:46 88 22 107/51 (69) 02/21/17 09:30 0 02/21/17 09:00 37.4 79 20 103/43 (63) 94 02/21/17 08:30 37.4 78 20 95/40 (58) 92 02/21/17 08:01 37.4 79 20 96/43 (60) 92 02/21/17 08:00 30 02/21/17 08:00 37.4 79 20 106/46 (66) 92 02/21/17 07:30 Mechanical Ventilator 30 02/21/17 07:30 30 02/21/17 07:30 36.9 80 20 110/72 (85) 93 Mechanical Ventilator 30 114/78 (90) 02/21/17 07:30 37.4 83 20 116/62 (80) 94 02/21/17 07:16 30 02/21/17 07:00 37.3 82 20 118/52 (74) 94 02/21/17 06:00 85 20 113/59 (77) 93 Mechanical Ventilator 30 02/21/17 05:00 30 02/21/17 04:03 37.4 85 20 115/57 (76) 93 Mechanical Ventilator 30 02/21/17 04:01 30 02/21/17 04:00 93 Mechanical Ventilator 30 02/21/17 02:20 30 02/21/17 02:00 82 20 111/58 (75) 94 Mechanical Ventilator 30 02/21/17 00:01 37.3 85 20 118/68 (85) 92 Mechanical Ventilator 30 02/20/17 23:59 30 02/20/17 23:59 Mechanical Ventilator 30 02/20/17 23:12 30 02/20/17 22:00 83 20 120/56 (77) 94 Mechanical Ventilator 30 02/20/17 20:06 30 02/20/17 20:00 30 02/20/17 20:00 36.8 91 20 108/47 (67) 95 Mechanical Ventilator 30 02/20/17 20:00 95 Mechanical Ventilator 30 02/20/17 18:00 37.3 84 20 128/53 (78) 94 Mechanical Ventilator 30 02/20/17 16:35 30 Laboratory Results: Last 24 Hours Test 02/20/17 20:09 02/20/17 22:37 02/21/17 02:42 02/21/17 03:54 Activated Partial Thromboplast Time 53.3 SECONDS Partial Thromboplastin Ratio 2.1 Bedside Glucose (other) 156 mg/dl 203 mg/dl 184 mg/dl Test 02/21/17 05:10 02/21/17 05:11 02/21/17 06:13 02/21/17 07:36 Bedside Glucose (other) 143 mg/dl 134 mg/dl 151 mg/dl White Blood Count 6.74 K/uL Red Blood Count 4.36 M/uL Hemoglobin 14.2 g/dL Hematocrit 41.3 % Mean Corpuscular Volume 94.7 fL Mean Corpuscular Hemoglobin 32.6 pg Mean Corpuscular Hemoglobin Concent 34.4 g/dl Platelet Count 116 K/uL Mean Platelet Volume 11.1 fL Neutrophils (%) (Auto) 76.5 % Lymphocytes (%) (Auto) 12.8 % Monocytes (%) (Auto) 8.3 % Eosinophils (%) (Auto) 1.9 % Basophils (%) (Auto) 0.1 % Neutrophils # (Auto) 5.15 K/uL Lymphocytes # (Auto) 0.86 K/uL Monocytes # (Auto) 0.56 K/uL Eosinophils # (Auto) 0.13 K/uL Basophils # (Auto) 0.01 K/uL RDW Standard Deviation 54.1 fL RDW Coefficient of Variation 15.5 % Immature Granulocyte % (Auto) 0.4 % Immature Granulocyte # (Auto) 0.03 K/uL Prothrombin Time 10.9 SECONDS Prothromb Time International Ratio 1.0 Activated Partial Thromboplast Time 42.0 SECONDS Partial Thromboplastin Ratio 1.6 Sodium Level 137 mmol/L Potassium Level 3.9 mmol/L Chloride Level 103 mmol/L Carbon Dioxide Level 28 mmol/L Anion Gap 6.0 mmol/L Blood Urea Nitrogen 22 mg/dl Creatinine 1.06 mg/dl Est Creatinine Clear Calc Drug Dose 65.4 ml/min Estimated GFR () 79.7 Estimated GFR (Non- 68.8 BUN/Creatinine Ratio 21.1 Random Glucose 135 mg/dl Calcium Level 8.2 mg/dl Phosphorus Level 2.6 mg/dl Magnesium Level 2.2 mg/dl Total Bilirubin 0.8 mg/dl Direct Bilirubin 0.4 mg/dl Aspartate Amino Transf (AST/SGOT) 35 U/L Alanine Aminotransferase (ALT/SGPT) 33 U/L Alkaline Phosphatase 122 U/L Total Protein 5.5 gm/dl Albumin 1.9 gm/dl Test 02/21/17 08:54 02/21/17 10:13 02/21/17 11:31 02/21/17 12:06 Bedside Glucose (other) 221 mg/dl 200 mg/dl 180 mg/dl 166 mg/dl Test 02/21/17 12:44 02/21/17 14:09 02/21/17 15:16 02/21/17 15:56 Activated Partial Thromboplast Time 60.6 SECONDS Partial Thromboplastin Ratio 2.3 Bedside Glucose (other) 211 mg/dl Bedside Glucose 209 mg/dl 219 mg/dl
--- NOTE | 2017-02-21 17:28 | Procedure Note ---
Procedure Note Procedure Date Feb 21, 2017. Procedure Description Procedure Name: Placement of anterior chest tube, removal of the posterior chest tube. Procedure time out: side/site verified, patient ID confirmed, correct procedure Consent obtained: written Performed by: attending Indications: therapeutic Contraindications: none Description: #1 removal of the chest to posteriorly, the patient was placed in recumbent position. The dressing was removed and the skin was prepped with chlorhexidine. 1 surgical suture was placed around the insertion of the chest tube, and the old sutures holding the chest tube were removed, the chest tube was removed by Dr. Braga and I was present throughout the entire procedure. An abdominal wart quick movements of the chest tube was removed and applying pressure for at least 3 minutes at the insertion site and tying around suture around the insertion site. The patient received priorly 3 mL of 1% lidocaine topical. Xeroform and 4 x 4's in addition to stretch tape was used to close up the site. Chest x-ray did not reveal recurrence of pneumothorax. The suture left in place should be removed in 5 days. Anterior chest tube was placed due to the presence of anterior pneumothorax not drained by the previous chest tube. Consent obtained from the family earlier. Under ultrasound guidance it was noted the pneumothorax anteriorly at the level of the sixth intercostal space. The skin was prepped with chlorhexidine and injected with total of 20 mL of 1% lidocaine. Using small needle followed by a large bore needle inserted above the rib into the sixth intercostal space. A wire using Seldinger technique with a dilator and no scalpel the pigtail catheter was placed into 16 cm 8.5 [place]. And sutured in place with 1 g suture. And connected to the Pleur-evac to suction with alternating with waterseal. Chest x-ray revealed the pigtail in good position and no pneumothorax. Patient tolerated the procedure very well. No immediate competition. Complications: none Patient tolerated procedure: well
[2017-02-21] MEDS ORDERED: HALOPERIDOL LACTATE 5 MG/ML 1 ML VIAL ONE (17:29)
[2017-02-21] MEDS ORDERED: HALOPERIDOL LACTATE 5 MG/ML 1 ML VIAL IV SCH (17:30)
[2017-02-21] MEDS ORDERED: NURSING VERBAL MED ORDER ONE (17:30)
[2017-02-21] MEDS ORDERED: GADAVIST IV PRN (18:15)
--- NOTE | 2017-02-21 18:19 | DIAGNOSTIC IMAGING REPORT ---
BRAIN COMBO CLINICAL HISTORY: 76 years-old Male presenting with ? anoxic brain injury, post cardiac arrest. . TECHNIQUE: Multisequence, multiplanar MR imaging of the brain was performed before and after the administration of intravenous contrast. IV contrast: 7 mL of Gadavist. COMPARISON: CT head performed earlier the same day. FINDINGS: Ventricles and sulci normal in size. Limited foci of subcortical white matter T2/FLAIR hyperintensity, nonspecific but likely indicative of chronic small vessel ischemic change. No mass effect or midline shift. Punctate focus of restricted diffusion at the level of the right inferior jeannie medullary junction (series 5 image 6; series 500 image 6). No hemorrhage. No extra-axial fluid collection. T2 skull base flow voids preserved. No abnormal parenchymal enhancement. Bone marrow signal intensity within the calvarium within normal limits. Mild mucosal thickening in the maxillary sinuses. IMPRESSION: 1. Findings concerning for a punctate focus of ischemia at the junction of the right inferior jeannie and medulla. This may represent a small lacunar infarct versus a punctate embolic infarct. No evidence of anoxic brain injury. Electronically signed by: Andrea Rice M.D. 02/21/2017 6:17 PM Dictated Date/Time: 02/21/2017 6:12 PM
--- NOTE | 2017-02-21 19:03 | DIAGNOSTIC IMAGING REPORT ---
CHEST ONE VIEW PORTABLE CLINICAL HISTORY: 76 years-old Male presenting with significant change in sc emphysema after returning from procedure. TECHNIQUE: Portable upright AP view of the chest was obtained. COMPARISON: 02/21/2017 at 3:00 PM. FINDINGS: Endotracheal tube terminates over 5 cm from the mickie. Right internal jugular central venous catheter terminates in the upper SVC. Nasogastric tube descends below the diaphragm terminating in the gastric lumen. Right pigtail pleural catheter terminates laterally in the right mid lung. A large bore right pleural drain may also be present. Extensive associated subcutaneous emphysema. Atherosclerosis of aortic arch. Cardiac silhouette enlarged, unchanged. Trace residual right apical pneumothorax. Left basilar opacity persists. Left pleural effusion may be present. Degenerative changes of the thoracic spine. Upper abdomen normal. IMPRESSION: 1. Lines and tubes are properly positioned. Possible interval placement of a large bore right pleural drain, although this may represent overlapping external devices. 2. Trace residual right apical pneumothorax. 3. Left basilar opacity, possibly atelectasis and effusion. Electronically signed by: Andrea Rice M.D. 02/21/2017 7:02 PM Dictated Date/Time: 02/21/2017 6:59 PM
--- NOTE | 2017-02-21 19:09 | Progress Note ---
Internal Med Progress Note Date of Service: Feb 21, 2017. Provider Documentation: SUBJECTIVE: remains intubated failed weaning attempt vitals remains stable off pressors sedation weaned off CT chest this AM showed : Increased size of small right pneumothorax now with maximum pleural separation of 3 cm, previously 1.[address] study dated 02/17/2017. chest tube repositioned by standpipe tender Dr Porras today post chest tube Cxray : . Lines and tubes are properly positioned. Possible interval placement of a large bore right pleural drain, although this may represent overlapping external devices. 2. Trace residual right apical pneumothorax. MRI of brain today 02/21/17 Findings concerning for a punctate focus of ischemia at the junction of the right inferior jeannie and medulla. This may represent a small lacunar infarct versus a punctate embolic infarct. No evidence of anoxic brain injury. Front Desk Attendant aware -pt is on Eliquis via NG tube OBJECTIVE: Vital Signs-as noted below Exam: General-intubated , still unresponsive , Eyes-bilateral pin point pupil ( due to IV Fentanyl gtt ) ENT-ET tube in place Neck-Rt IJ present , rt lower neck crepitus + ( subcutaneous emphysema ) Lungs-diminished on right , + rales , + chest tune Heart-regular Abdomen-soft, Extremities-no edema noted Neuro-unresponsive /on vent /sedation being weaned off Lab data as noted below. ASSESSMENT & PLAN: VTACH CARDIAC ARREST : 02/21/17 : remains intubated , off pressors on Amiodarone 200 mg per G-tube twice a day. IV heparin D/yaima on Eliquis 5 mg BID via G tube appreciate input form Cardiology and Front Desk Attendant 02/20 : remains intubated continued CPAP trial 02/19/17 : taken off Hypothermic protocol , Body core temp at normal 37.5 started to wean off sedation ( required large amount of sedation : Fentanyl @ 200 mcq, Versed @ 10mg/h ) cont CPAP trial appreciate input /help from Front Desk Attendant rt sided Chest tube remains in air seal converted to sinus rhythm /rate controlled @ 60's , on Amiodarone gtt improved Qtc on IV Heparin gtt on Dobutamine and Levophed gtt if pt able to recover enough to be extubated without neurological deficit will benefit with AICD placement during this hospital cardiology following 02/18/2017: HX of CAD with ischemic cardiomyopathy , 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 developed pneumothorax with extensive Rt sided sub q emphysema due to CPR Cxray shows 02/16/17 : Rt sided pneumothorax with max pleural separation of 1.4 cm s/p rt right chest tube placement while in ICU , cardiac rhythm changed to Afib on amiodarone gtt /IV heparin started due arrhythmia -Afib appreciate input form Cardiology warming process started this morning appreciate help and input form the standpipe tender if pt is able to recover with adequate neurological capacity will need AICD placement AFIB : paroxysmal Afib due to cardiogenic shock / hypoxia amiodarone gtt D/yaima changed to Amiodarone 200 mg BID via OG tube IV heparin gtt d/yaima Eliquis 5 mg BID via OG tube appreciate cardiology input ACUTE CVA : MRI of brain today 02/21/17 Findings concerning for a punctate focus of ischemia at the junction of the right inferior jeannie and medulla. This may represent a small lacunar infarct versus a punctate embolic infarct. No evidence of anoxic brain injury. possible cardiogenic emboli Front Desk Attendant aware -pt is on Eliquis via NG tube ELEVATED TROPONIN : due to Vtach cardiac arrest /aggressive CPR doubt due to acute [place] /atherothrombotic plaque rupture Kris 0.40-> 10-> 11-> 8.4 ECHO 02/16/17 : thinning and scar of the inferior base, posterior and inferolateral ye. Septal motion is consistent with conduction abnormality. moderate apical wall hypokinesis. inferior wall akinesis. posterior wall akinesis. Ejection Fraction = 25-30%. ECHO unchanged from prior study on 12/2016 Cardiology following closely ROBERTO ON CKD STAGE 3 : resolved , Cr improved 1.06 due to Cardiac arrest /hypoperfusion of organs off pressors TYPE 2 DM : on Insulin gtt pharmacy following for glycemic management LACTIC ACIDOSIS : resolved Lactic acid 1.2 -after adequate tissue perfusion establish with Hypothermic protocol /pressors lactic acid was > 2 , with out any evidence of infection or sepsis due to Cardiogenic shock /organ /tissue hypoperfusion Supportive care provided with IV pressors /Hypothermic protocol DVT PROPHYLAXIS Eliquis DNR /DNI DISPOSITION remains critically ill in ICU Vital Signs: Date Time Temp Pulse Resp B/P (MAP) Pulse Ox O2 Delivery O2 Flow Rate FiO2 02/21/17 19:10 30 02/21/17 18:20 37.1 90 20 98/53 (68) 95 Mechanical Ventilator 30 124/98 (107) 02/21/17 18:09 30 02/21/17 16:15 37.3 77 20 88/57 (67) 96 02/21/17 16:01 37.2 81 21 110/46 (67) 97 02/21/17 16:00 37.2 78 24 97/42 (60) 95 02/21/17 16:00 Mechanical Ventilator 30 02/21/17 16:00 37.1 82 20 102/55 (71) 97 Mechanical Ventilator 30 104/49 (67) 02/21/17 16:00 30 02/21/17 15:45 37.2 84 21 100/47 (64) 96 02/21/17 15:30 37.2 81 23 96/47 (63) 96 02/21/17 15:28 30 02/21/17 15:15 37.2 79 20 102/47 (65) 96 02/21/17 15:00 37.2 82 22 100/44 (62) 94 02/21/17 14:45 37.1 82 23 94/72 (79) 96 02/21/17 14:30 37.1 80 21 120/42 (68) 95 02/21/17 14:24 30 02/21/17 14:15 37.1 83 23 113/41 (65) 94 02/21/17 14:01 37.0 78 20 119/43 (68) 95 02/21/17 14:00 37.0 82 20 111/41 (64) 95 02/21/17 13:45 37.0 81 20 115/42 (66) 94 02/21/17 13:30 37.0 78 22 116/42 (66) 94 02/21/17 13:15 37.0 83 23 119/45 (69) 95 02/21/17 13:00 37.0 83 21 113/40 (64) 94 02/21/17 12:30 37.0 73 20 111/41 (64) 94 02/21/17 12:01 37.0 79 20 102/38 (59) 95 02/21/17 12:00 37.0 74 20 110/27 (54) 95 02/21/17 12:00 30 02/21/17 12:00 Mechanical Ventilator 30 02/21/17 11:30 37.1 80 20 98/51 (67) 93 Mechanical Ventilator 30 109/37 (61) 02/21/17 11:30 37.0 75 20 100/37 (58) 93 02/21/17 11:29 37.0 75 20 105/39 (61) 93 02/21/17 11:18 30 02/21/17 11:00 37.1 69 20 114/47 (69) 93 02/21/17 10:30 37.2 81 20 108/44 (65) 93 02/21/17 10:01 37.4 72 20 114/45 (68) 94 02/21/17 10:00 37.4 83 25 115/46 (69) 94 02/21/17 09:46 88 22 107/51 (69) 02/21/17 09:30 0 02/21/17 09:00 37.4 79 20 103/43 (63) 94 02/21/17 08:30 37.4 78 20 95/40 (58) 92 02/21/17 08:01 37.4 79 20 96/43 (60) 92 02/21/17 08:00 30 02/21/17 08:00 37.4 79 20 106/46 (66) 92 02/21/17 07:30 Mechanical Ventilator 30 02/21/17 07:30 30 02/21/17 07:30 36.9 80 20 110/72 (85) 93 Mechanical Ventilator 30 114/78 (90) 02/21/17 07:30 37.4 83 20 116/62 (80) 94 02/21/17 07:16 30 02/21/17 07:00 37.3 82 20 118/52 (74) 94 02/21/17 06:00 85 20 113/59 (77) 93 Mechanical Ventilator 30 02/21/17 05:00 30 02/21/17 04:03 37.4 85 20 115/57 (76) 93 Mechanical Ventilator 30 02/21/17 04:01 30 02/21/17 04:00 93 Mechanical Ventilator 30 02/21/17 02:20 30 02/21/17 02:00 82 20 111/58 (75) 94 Mechanical Ventilator 30 02/21/17 00:01 37.3 85 20 118/68 (85) 92 Mechanical Ventilator 30 02/20/17 23:59 30 02/20/17 23:59 Mechanical Ventilator 30 02/20/17 23:12 30 02/20/17 22:00 83 20 120/56 (77) 94 Mechanical Ventilator 30 Lab Results: Results Past 24 Hours Test 02/20/17 22:37 02/21/17 02:42 02/21/17 03:54 02/21/17 05:10 Range/Units Bedside Glucose (other) 156 203 184 143 70-99 mg/dl Test 02/21/17 05:11 02/21/17 06:13 02/21/17 07:36 02/21/17 08:54 Range/Units White Blood Count 6.74 4.8-10.8 K/uL Red Blood Count 4.36 4.7-6.1 M/uL Hemoglobin 14.2 14.0-18.0 g/dL Hematocrit 41.3 42-52 % Mean Corpuscular Volume 94.7 80-100 fL Mean Corpuscular Hemoglobin 32.6 25-34 pg Mean Corpuscular Hemoglobin Concent 34.4 32-36 g/dl Platelet Count 116 130-400 K/uL Mean Platelet Volume 11.1 7.4-10.4 fL Neutrophils (%) (Auto) 76.5 % Lymphocytes (%) (Auto) 12.8 % Monocytes (%) (Auto) 8.3 % Eosinophils (%) (Auto) 1.9 % Basophils (%) (Auto) 0.1 % Neutrophils # (Auto) 5.15 1.4-6.5 K/uL Lymphocytes # (Auto) 0.86 1.2-3.4 K/uL Monocytes # (Auto) 0.56 0.11-0.59 K/uL Eosinophils # (Auto) 0.13 0-0.5 K/uL Basophils # (Auto) 0.01 0-0.2 K/uL RDW Standard Deviation 54.1 36.4-46.3 fL RDW Coefficient of Variation 15.5 11.5-14.5 % Immature Granulocyte % (Auto) 0.4 % Immature Granulocyte # (Auto) 0.03 0.00-0.02 K/uL Prothrombin Time 10.9 9.0-12.0 SECONDS Prothromb Time International Ratio 1.0 0.9-1.1 Activated Partial Thromboplast Time 42.0 21.0-31.0 SECONDS Partial Thromboplastin Ratio 1.6 Sodium Level 137 136-145 mmol/L Potassium Level 3.9 3.5-5.1 mmol/L Chloride Level 103 98-107 mmol/L Carbon Dioxide Level 28 21-32 mmol/L Anion Gap 6.0 3-11 mmol/L Blood Urea Nitrogen 22 7-18 mg/dl Creatinine 1.06 0.60-1.40 mg/dl Est Creatinine Clear Calc Drug Dose 65.4 ml/min Estimated GFR () 79.7 Estimated GFR (Non- 68.8 BUN/Creatinine Ratio 21.1 10-20 Random Glucose 135 70-99 mg/dl Calcium Level 8.2 8.5-10.1 mg/dl Phosphorus Level 2.6 2.5-4.9 mg/dl Magnesium Level 2.2 1.8-2.4 mg/dl Total Bilirubin 0.8 0.2-1 mg/dl Direct Bilirubin 0.4 0-0.2 mg/dl Aspartate Amino Transf (AST/SGOT) 35 15-37 U/L Alanine Aminotransferase (ALT/SGPT) 33 12-78 U/L Alkaline Phosphatase 122 45-117 U/L Total Protein 5.5 6.4-8.2 gm/dl Albumin 1.9 3.4-5.0 gm/dl Bedside Glucose (other) 134 151 221 70-99 mg/dl Test 02/21/17 10:13 02/21/17 11:31 02/21/17 12:06 02/21/17 12:44 Range/Units Bedside Glucose (other) 200 180 166 70-99 mg/dl Activated Partial Thromboplast Time 60.6 21.0-31.0 SECONDS Partial Thromboplastin Ratio 2.3 Test 02/21/17 14:09 02/21/17 15:16 02/21/17 15:56 02/21/17 16:47 Range/Units Bedside Glucose (other) 211 70-99 mg/dl Bedside Glucose 209 219 189 70-99 mg/dl Test 02/21/17 19:22 Range/Units Bedside Glucose 162 70-99 mg/dl
[2017-02-21] MEDS: AMIODARONE 200 MG TAB PO SCH (21:02)
[2017-02-22] VITALS (72 sets, daily range): BP systolic 83–125; BP diastolic 34–62; PULSE 82–109; TEMP 36.8–37.5; O2SAT 88–97
[2017-02-22] MEDS: LACTULOSE SYRUP 30 GM/45 ML UDP PO SCH ×4 (02:53→21:14)
[2017-02-22 05:15] LABS: BASO % 0.2 %; BASO ABS # 0.01 K/uL (0-0.2); EOS % 0.8 %; EOS ABS # 0.05 K/uL (0-0.5); HEMATOCRIT 37.1 % (42-52); HEMOGLOBIN 12.6 g/dL (14.0-18.0); IG# 0.04 K/uL (0.00-0.02); LYMPH % 8.9 %; LYMPH ABS # 0.57 K/uL (1.2-3.4); MEAN CELL VOLUME 95.9 fL (80-100); MEAN CORPUSCULAR HEMOGLOBIN 32.6 pg (25-34); MEAN PLATELET VOLUME 11.6 fL (7.4-10.4); MONO % 9.8 %; MONO ABS # 0.63 K/uL (0.11-0.59); NEUT % 79.7 %; NEUT ABS # 5.11 K/uL (1.4-6.5); PLATELET COUNT 102 K/uL (130-400); RED CELL DISTRIBUTION WIDTH CV 15.9 % (11.5-14.5); RED CELL DISTRIBUTION WIDTH SD 55.3 fL (36.4-46.3); WHITE BLOOD COUNT 6.41 K/uL (4.8-10.8)
[2017-02-22 05:26] LABS: INR 1.1 (0.9-1.1); PTT PATIENT 33.4 SECONDS (21.0-31.0)
[2017-02-22] MEDS: FAMOTIDINE IV INJ 20 MG in SYRINGE 3 ML IV SCH ×2 (05:37→17:27)
[2017-02-22] MEDS: INSULIN REGULAR 250 UNITS in SODIUM CHLORIDE 0.9% 250ML 250 ML IV SCH (05:39)
[2017-02-22 05:58] LABS: ALBUMIN 1.9 gm/dl (3.4-5.0); CREATININE 1.16 mg/dl (0.60-1.40); PHOSPHORUS 2.3 mg/dl (2.5-4.9); POTASSIUM 4.2 mmol/L (3.5-5.1); TOTAL PROTEIN 5.2 gm/dl (6.4-8.2)
[2017-02-22] MEDS: ALBUTEROL HFA 8 GM INHALER INH SCH ×4 (07:17→19:52)
[2017-02-22] MEDS: IPRATROPIUM BROMIDE HFA INHALER INH SCH ×4 (07:17→19:52)
[2017-02-22] MEDS: INSULIN ASPART 100 UNITS/ML 3 ML PEN SC SCH ×5 (07:48→22:36)
--- NOTE | 2017-02-22 07:50 | DIAGNOSTIC IMAGING REPORT ---
CHEST ONE VIEW PORTABLE HISTORY: Follow-up pneumothorax. COMPARISON: Chest 02/21/2017. FINDINGS: The endotracheal tube terminates 4 cm from the mickie. Nasogastric tube terminates below the diaphragm. Right jugular central venous catheter terminates at the brachiocephalic/SVC junction. Trace left pleural effusion. Right chest wall subcutaneous emphysema is again noted. Tiny right pneumothorax is no longer identified. Right pleural catheter is unchanged in position. Patchy bibasilar densities persist. Mild cardiomegaly, unchanged. IMPRESSION: 1. The right-sided pneumothorax is no longer identified. 2. Satisfactory support line placement. 3. Small left pleural effusion and bibasilar densities. Electronically signed by: Akash Morocho M.D. 02/22/2017 7:49 AM Dictated Date/Time: 02/22/2017 7:46 AM
[2017-02-22] MEDS: DOCUSATE SODIUM 100 MG/10 ML UDC PO SCH ×2 (09:01→21:14)
[2017-02-22] MEDS: POLYETHYLENE (MIRALAX) 17 GM PACK PO SCH (09:01)
[2017-02-22] MEDS: AMIODARONE 200 MG TAB PO SCH ×2 (09:02→21:15)
[2017-02-22] MEDS: APIXABAN 2.5 MG TAB PO SCH ×2 (09:14→21:15)
[2017-02-22] MEDS: DOPAMINE 400 MG IV PRN (09:52)
[2017-02-22] MEDS: [UNRECOGNIZED DRUG - OTHER] IV PRN (09:52)
--- NOTE | 2017-02-22 09:55 | Critical Care Progress Note ---
Critical Care Progress Note Date of Service Feb 22, 2017. Attending Dr. Porras Subjective The patient today was able to follow simple commands with answer yes or no. However he still lethargic and confused. Failed CPAP trial. Did not have any pain or shortness of breath except touching the right side of the chest. Objective remains vented , sedated, under TTM. The patient completed his TTM, he started on a warming process, blood pressure dropped slightly requiring increasing dose of dopamine and adding Levophed. EEG did not reveal seizure activity in the past 24 hours. Urine output has been adequate. Subcutaneous emphysema on the right side has been stable. No air leak from the chest tube. His physical exam today revealed was sedated gentleman currently does not appear to be in any respiratory distress, his vital signs remained stable. Heart examination S1-S2 regular rate and rhythm. Mild bradycardia. Lungs with distant crackles right greater than left due to subcutaneous emphysema. Chest tube site appears to be clean. Abdomen is benign with subcutaneous emphysema trace edema in the periphery. Neurologic he is difficult to assess. Pupils are remains reactive. On 02/19/2017, the patient continued to be intubated. We were able to wean his sedation to off. Minimal leak from the chest tube was noted and likely related to defect in the tubing. Subcutaneous emphysema has been stable. On 02/20/2017, the patient remains intubated, moving mildly, does not have any purposeful movement or following commands, remains sedated although he has been off sedatives for at least 48 hours. His heart examination S1-S2 regular rate and rhythm, subcutaneous emphysema protruding good auscultation of the chest, abdomen is benign, trace edema in the periphery. Neurologically is difficult to assess. On 02/21/2017, the patient is intubated, not sedated, nonpurposeful movement noted, vital signs remained stable, the patient is off pressors, no JVP, subcutaneous emphysema has been stable, S1-S2 regular rate and rhythm, lungs were distant crackles likely from subcutaneous emphysema. Abdomen is benign no edema. Neurologically difficult to assess. On 02/22/2017, the patient physical exam has been stable, his O2 saturation has been variable around 93% mainly on 30%. Still have crepitus on the right side of the chest but has not expanded or gotten worse. S1-S2 regular rate and rhythm. Abdomen is benign edema in the periphery noted. Minimal air leak from the chest tube. Neurologically he is improving but still not able to breathe on his own. His neurologic exam definitely has improved the patient minimally opening his eyes but he could not make any eye contact. He was able to make a hand clinical trial leader. The rest of his neurologic exam was difficult to assess. Current SOFA Score SOFA Score Response (Comments) Value PaO2/FiO2 (mmHg) < 400 1 Platelets (x10) > 150 0 Bilirubin (mg/dL) 1.2 - 1.9 1 Mary Coma Score 15 0 Level of Hypotension Dopamine > 5 mcq or Epi < 0.1 mcq 3 Creatinine (mg/dL) < 1.2 0 Total 5 Assessment & Plan I have reviewed his laboratory and his chest x-ray personally. The patient has been stable. His chest x-ray showed minimal left-sided pleural effusion and resolution of the right pneumothorax. Impression: #1 cardiac arrest secondary to V. fib/V. tach/torsades. #2 acute respiratory failure. #3 iatrogenic pneumothorax status post chest tube placement, converted to anterior chest tube with no recurrence of pneumothorax. #4 failure to wean from the ventilator due to bibasilar atelectasis, CHF and cardiomyopathy with pulmonary edema. #5 V. fib arrest which will require eventually a defibrillator placement. #6 the MRI of the head from yesterday was reviewed personally revealing no evidence of anoxic brain injury however the patient did have what appeared to be a punctate jeannie ischemia. The location of this lesion could affect his respiratory status as well. #7 paroxysmal A. fib. Plan: #1 I would keep the patient off the sedation. #2 we will use Tylenol only for the pain if needed. #3 I would continue to examine the patient frequently from neurologic standpoint. #4 if the patient become more aware and awake and able to follow commands I will restart the spontaneous breathing trial again. #5 the patient failed spontaneous breathing trial today with hospital rate going up to 40. #5 continue with assist control mode. #6 continue with bronchodilators. #7 the patient blood pressure improved however he required to put back again the dopamine today. #8 I will change the OG tube and NG tube and continue with the tube feeding. #9 I will change the tube feedings to Glucerna available to avoid hyperglycemia. #10 I will start the patient on Lantus insulin in preparation for taken off the insulin drip. #11 the patient had minimal air leak from the anterior chest tube which I would keep it in place. #12 bowel regimen was given. #13 family update on a daily basis. #14 the patient remains at 1.9 L positive and I would give him additional dose of Lasix. #15 the patient would benefit from Lopressor however I would hold off on the beta jeffry until his blood pressure is better. #16 I would update the family was at the bedside. I have being given them updates on daily basis on several occasions. #17 continue Apixaban. Case discussed with the staff on rounds in details. Critical care time spent with the patient was 45 minutes. Consults & Procedures Consultants: cardiology Procedures: as previous. Data Medications: Current Inpatient Medications Medications (Trade) Dose Ordered Sig/Shakira Route Start Time Stop Time Status Last Admin Dose Admin Acetaminophen (Tylenol Tab) 650 mg Q4H PRN PO 02/17/17 02:30 03/19/17 02:29 Ondansetron HCl (Zofran Inj) 4 mg Q6H PRN IV 02/17/17 02:30 03/19/17 02:29 Artificial Tears (Lacri-Lube Oph Oint) 1 appln Q2H PRN OPB 02/17/17 03:15 03/19/17 03:14 Famotidine 20 mg/ Syringe 5 ml @ 2.5 mls/min Q12H IV 02/17/17 06:00 03/19/17 05:59 02/22/17 05:37 2.5 MLS/MIN Insulin Aspart (novoLOG ASPART) [facility] 02/17/17 08:00 03/19/17 08:59 Insulin Human Regular 250 units/ Sodium Chloride 252.5 ml @ 0 mls/hr Q24H IV 02/17/17 05:00 03/19/17 04:59 02/22/17 05:39 1.9 MLS/HR Glucose (Glucose 40% Gel) 15-30 GRAMS 15 GRAMS... UD PRN PO 02/17/17 05:15 03/19/17 05:14 Glucose (Glucose Chew Tab) 4-8 Tablets 4 Tabl... UD PRN PO 02/17/17 05:15 03/19/17 05:14 Dextrose (Dextrose 50% 50ML Syringe) 25-50ML OF 50% DW IV FOR... UD PRN IV 02/17/17 05:15 03/19/17 05:14 02/17/17 23:17 25 ML Glucagon (Glucagon Inj) 1 mg UD PRN SQ 02/17/17 05:15 03/19/17 05:14 Ipratropium [place] (Atrovent Hfa Inhaler) 4 puffs QIDR INH 02/17/17 08:00 03/19/17 07:59 02/22/17 07:17 4 PUFFS Albuterol (Ventolin Hfa Inhaler) 4 puffs QIDR INH 02/17/17 08:00 03/19/17 07:59 02/22/17 07:17 4 PUFFS Dopamine HCl/ Dextrose 250 ml @ 0 mls/hr Q0M PRN IV 02/17/17 16:13 03/19/17 16:12 02/21/17 08:41 20 MLS/HR Heparin Sodium (Porcine) (Heparin 10 Unit/ ml 5 ml Flush) 5 ml PRN PRN FLUSH 02/18/17 00:15 03/20/17 00:14 Enteral Nutritional Formula (Impact 1.0 Shyam) 1,000 ml UD OG 02/20/17 09:30 03/22/17 09:29 02/20/17 11:33 1,000 ML Docusate Sodium (coLACE SYRUP) 100 mg BID PO 02/20/17 21:00 03/22/17 20:59 02/22/17 09:01 100 MG Polyethylene (Miralax Powder Packet) 17 gm DAILY PO 02/21/17 09:00 03/23/17 08:59 02/22/17 09:01 17 GM Lactulose (Chronulac Syrup) 30 gm Q6H PO 02/21/17 09:00 03/23/17 08:59 02/22/17 02:53 30 GM Amiodarone HCl (Cordarone Tab) 200 mg BID PO 02/21/17 21:00 03/23/17 20:59 02/22/17 09:02 200 MG Apixaban (Eliquis Tab) 5 mg BID PO 02/21/17 16:00 03/23/17 15:59 02/22/17 09:14 5 MG Gadobutrol (Gadavist) 7 mmol UD PRN IV 02/21/17 18:15 02/25/17 18:14 Furosemide 40 mg/ Syringe 4 ml @ 4 mls/min NOW ONCE IV 02/22/17 10:00 02/22/17 10:01 Acetaminophen (Tylenol Soln) 650 mg Q4H PRN PO 02/22/17 10:00 03/24/17 09:59 UNV Vital Signs: Date Time Temp Pulse Resp B/P (MAP) Pulse Ox O2 Delivery O2 Flow Rate FiO2 02/22/17 08:15 30 02/22/17 08:15 94 Mechanical Ventilator 30 02/22/17 08:14 37.2 99 22 85/53 (64) 94 Mechanical Ventilator 30 93/43 (60) 02/22/17 07:19 30 02/22/17 06:01 101 27 93/58 (63) 94 104/48 (63) 02/22/17 05:36 30 02/22/17 05:01 103 22 87/55 (57) 94 97/42 (56) 02/22/17 04:01 105 26 98/57 (62) 93 105/45 (59) 02/22/17 04:00 37.3 02/22/17 04:00 30 02/22/17 04:00 94 Mechanical Ventilator 30 02/22/17 03:01 104 29 101/57 (65) 93 110/45 (63) 02/22/17 02:01 106 29 100/62 (65) 94 110/46 (63) 02/22/17 02:01 30 02/22/17 01:01 104 23 101/62 (65) 94 113/46 (68) 02/22/17 00:01 98 23 98/60 (70) 96 99/54 02/22/17 00:01 36.9 02/21/17 23:59 30 02/21/17 23:59 95 Mechanical Ventilator 30 02/21/17 23:48 97 26 111/62 (70) 96 111/51 (66) 02/21/17 23:40 30 02/21/17 22:01 81 20 95/52 (63) 96 104/50 02/21/17 21:00 83 21 111/43 (61) 98 02/21/17 20:01 82 22 113/58 (63) 99 124/42 (65) 02/21/17 20:00 95 Mechanical Ventilator 30 02/21/17 20:00 37.1 02/21/17 20:00 30 02/21/17 19:10 30 02/21/17 19:00 92 26 123/49 (68) 98 02/21/17 18:20 37.1 90 20 98/53 (68) 95 Mechanical Ventilator 30 124/98 (107) 02/21/17 18:09 30 02/21/17 16:15 37.3 77 20 88/57 (67) 96 02/21/17 16:01 37.2 81 21 110/46 (67) 97 02/21/17 16:00 37.2 78 24 97/42 (60) 95 02/21/17 16:00 Mechanical Ventilator 30 02/21/17 16:00 37.1 82 20 102/55 (71) 97 Mechanical Ventilator 30 104/49 (67) 02/21/17 16:00 30 02/21/17 15:45 37.2 84 21 100/47 (64) 96 02/21/17 15:30 37.2 81 23 96/47 (63) 96 02/21/17 15:28 30 02/21/17 15:15 37.2 79 20 102/47 (65) 96 02/21/17 15:00 37.2 82 22 100/44 (62) 94 02/21/17 14:45 37.1 82 23 94/72 (79) 96 02/21/17 14:30 37.1 80 21 120/42 (68) 95 02/21/17 14:24 30 02/21/17 14:15 37.1 83 23 113/41 (65) 94 02/21/17 14:01 37.0 78 20 119/43 (68) 95 02/21/17 14:00 37.0 82 20 111/41 (64) 95 02/21/17 13:45 37.0 81 20 115/42 (66) 94 02/21/17 13:30 37.0 78 22 116/42 (66) 94 02/21/17 13:15 37.0 83 23 119/45 (69) 95 02/21/17 13:00 37.0 83 21 113/40 (64) 94 02/21/17 12:30 37.0 73 20 111/41 (64) 94 02/21/17 12:01 37.0 79 20 102/38 (59) 95 02/21/17 12:00 37.0 74 20 110/27 (54) 95 02/21/17 12:00 30 02/21/17 12:00 Mechanical Ventilator 30 02/21/17 11:30 37.1 80 20 98/51 (67) 93 Mechanical Ventilator 30 109/37 (61) 02/21/17 11:30 37.0 75 20 100/37 (58) 93 02/21/17 11:29 37.0 75 20 105/39 (61) 93 02/21/17 11:18 30 02/21/17 11:00 37.1 69 20 114/47 (69) 93 02/21/17 10:30 37.2 81 20 108/44 (65) 93 02/21/17 10:01 37.4 72 20 114/45 (68) 94 02/21/17 10:00 37.4 83 25 115/46 (69) 94 Laboratory Results: Last 24 Hours Test 02/21/17 10:13 02/21/17 11:31 02/21/17 12:06 02/21/17 12:44 Bedside Glucose (other) 200 mg/dl 180 mg/dl 166 mg/dl Activated Partial Thromboplast Time 60.6 SECONDS Partial Thromboplastin Ratio 2.3 Test 02/21/17 14:09 02/21/17 15:16 02/21/17 15:56 02/21/17 16:47 Bedside Glucose (other) 211 mg/dl Bedside Glucose 209 mg/dl 219 mg/dl 189 mg/dl Test 02/21/17 19:22 02/21/17 20:21 02/21/17 22:01 02/21/17 22:56 Bedside Glucose 162 mg/dl 132 mg/dl 141 mg/dl 147 mg/dl Test 02/22/17 00:46 02/22/17 02:50 02/22/17 04:00 02/22/17 04:41 Bedside Glucose 170 mg/dl 212 mg/dl 243 mg/dl White Blood Count 6.41 K/uL Red Blood Count 3.87 M/uL Hemoglobin 12.6 g/dL Hematocrit 37.1 % Mean Corpuscular Volume 95.9 fL Mean Corpuscular Hemoglobin 32.6 pg Mean Corpuscular Hemoglobin Concent 34.0 g/dl Platelet Count 102 K/uL Mean Platelet Volume 11.6 fL Neutrophils (%) (Auto) 79.7 % Lymphocytes (%) (Auto) 8.9 % Monocytes (%) (Auto) 9.8 % Eosinophils (%) (Auto) 0.8 % Basophils (%) (Auto) 0.2 % Neutrophils # (Auto) 5.11 K/uL Lymphocytes # (Auto) 0.57 K/uL Monocytes # (Auto) 0.63 K/uL Eosinophils # (Auto) 0.05 K/uL Basophils # (Auto) 0.01 K/uL RDW Standard Deviation 55.3 fL RDW Coefficient of Variation 15.9 % Immature Granulocyte % (Auto) 0.6 % Immature Granulocyte # (Auto) 0.04 K/uL Prothrombin Time 11.2 SECONDS Prothromb Time International Ratio 1.1 Activated Partial Thromboplast Time 33.4 SECONDS Partial Thromboplastin Ratio 1.3 Sodium Level 134 mmol/L Potassium Level 4.2 mmol/L Chloride Level 102 mmol/L Carbon Dioxide Level 27 mmol/L Anion Gap 5.0 mmol/L Blood Urea Nitrogen 29 mg/dl Creatinine 1.16 mg/dl Est Creatinine Clear Calc Drug Dose 59.0 ml/min Estimated GFR () 71.5 Estimated GFR (Non- 61.7 BUN/Creatinine Ratio 25.0 Random Glucose 242 mg/dl Calcium Level 8.0 mg/dl Phosphorus Level 2.3 mg/dl Magnesium Level 2.2 mg/dl Total Bilirubin 0.9 mg/dl Direct Bilirubin 0.5 mg/dl Aspartate Amino Transf (AST/SGOT) 57 U/L Alanine Aminotransferase (ALT/SGPT) 56 U/L Alkaline Phosphatase 199 U/L Total Protein 5.2 gm/dl Albumin 1.9 gm/dl Test 02/22/17 04:59 02/22/17 06:02 02/22/17 07:17 02/22/17 08:19 Bedside Glucose 216 mg/dl 240 mg/dl 229 mg/dl 224 mg/dl Test 02/22/17 09:22 Bedside Glucose 240 mg/dl
[2017-02-22] MEDS ORDERED: FUROSEMIDE INJ 40 MG in SYRINGE 0 ML IV ONE (10:00)
[2017-02-22] MEDS ORDERED: ACETAMINOPHEN SOLN 650MG/20.3 ML UDC PO PRN (10:00)
--- NOTE | 2017-02-22 11:23 | DIAGNOSTIC IMAGING REPORT ---
CHEST ONE VIEW PORTABLE HISTORY: NG tube placement. COMPARISON: Chest 02/22/2017. FINDINGS: The nasogastric tube terminates within the proximal stomach. Endotracheal tube terminates approximately 4.4 cm from the mickie. Right jugular central venous catheter terminates at the brachiocephalic/SVC junction. This remains unchanged. No pneumothorax. Right-sided pleural catheter is unchanged in position. Right chest wall subcutaneous emphysema is again noted. The heart remains mildly enlarged. Improved aeration within the lung bases. Trace left pleural effusion has also improved. Mild central pulmonary vascular congestion without overt edema. IMPRESSION: 1. Satisfactory line placement. 2. No pneumothorax identified. 3. Improvement in the pulmonary congestion, bibasilar densities, and trace left pleural effusion. Electronically signed by: Akash Morocho M.D. 02/22/2017 11:21 AM Dictated Date/Time: 02/22/2017 11:19 AM
--- NOTE | 2017-02-22 12:08 | Cardiology Follow-Up ---
Subjective Subjective Date of Service: Feb 22, 2017. Pt evaluation today including: physical exam, chart review, lab review, review of studies, review of inpatient medication list Additional Details: Pt seen and examined, intubated, minimal response to verbal stimuli but reportedly more responsive today. No events overnight reported. Vasopressors were restarted overnight. Tele reviewed: sinus rhythm with underlying LBBB, no arrhythmia or significant ectopy. Problem List Medical Problems: (1) Elevated troponin Status: Acute (2) Pneumothorax on right Status: Acute (3) Pulmonary edema Status: Acute (4) Rib fractures Status: Acute (5) Ventricular tachycardia Status: Acute Objective Vital Signs Last Vital Signs Documentation Date Time Temp Pulse Resp B/P (MAP) Pulse Ox O2 Delivery O2 Flow Rate FiO2 02/22/17 11:31 50 02/22/17 10:15 98 21 107/42 (63) 91 02/22/17 08:15 Mechanical Ventilator 02/22/17 08:14 37.2 Physical Exam: General Appearance: WD/WN, no apparent distress, + pertinent finding ( intubated on vent) Neck: supple, no adenopathy, thyroid normal, no JVD, no carotid bruits, trachea midline Respiratory/Chest: normal breath sounds, no respiratory distress, no accessory muscle use, + pertinent finding (upper airway rhonchi, otherwise clear) Cardiovascular: regular rate, rhythm (regular but distant, unable to appreciate murmurs, rubs or gallops) Abdomen: normal bowel sounds, soft, no organomegaly, no pulsatile mass Extremities: normal inspection, no pedal edema, no calf tenderness Skin: normal color, warm/dry, no rash Lymphatic: no adenopathy Assessment and Plan 1. V-tach arrest stable no further arrhythmias on monitor amio changed to po which is appropriate, again no further arrhythmias unable to add beta jeffry given ongoing need for pressure support question remains whether will be candidate for ICD placement, will need to follow for neurologic improvement
--- NOTE | 2017-02-22 12:56 | Progress Note ---
Internal Med Progress Note Date of Service: Feb 22, 2017. Provider Documentation: SUBJECTIVE: pt was found to be tachypneic with attempt for CPAP failed weaning trial started back on Dopamine gtt neurologically more responsive -moving head with voice able to squeeze hand with command repeat Cxray this Am shows no pneumothorax . mild pulmonary vascular congestion IV Lasix ordered by Dr Porras OBJECTIVE: Vital Signs-as noted below Exam: General-intubated , moving limbs , able to squeeze hand on command Eyes-reactive to light ENT-ET tube in place Neck-Rt IJ present , rt lower neck crepitus + ( subcutaneous emphysema ) Lungs-diminished on right , + rales , + chest tube Heart-regular Abdomen-soft, Extremities-no edema noted Neuro-more responsive today . moving all limbs, squeezing all hand Lab data as noted below. ASSESSMENT & PLAN: VTACH CARDIAC ARREST : 02/22/17: remains intubated , failed CPAP trial today CXray no pneumothorax noted ,satisfactory line placement -rt jugular CVP terminates at the brachiocephalic /SVC junction rt sided pleural catheter unchanged position mild central pulmonary congestion ordered 40 mg IV Lasix by Dr Porras on Amiodarone 200 mg VIA OG tube BID on Dopamine gtt Lopressor not initiated due to hypotensive Cardiology following 02/21/17 : remains intubated , off pressors on Amiodarone 200 mg per G-tube twice a day. IV heparin D/yaima on Eliquis 5 mg BID via G tube appreciate input form Cardiology and Identification Technician 02/20 : remains intubated continued CPAP trial 02/19/17 : taken off Hypothermic protocol , Body core temp at normal 37.5 started to wean off sedation ( required large amount of sedation : Fentanyl @ 200 mcq, Versed @ 10mg/h ) cont CPAP trial appreciate input /help from Identification Technician rt sided Chest tube remains in air seal converted to sinus rhythm /rate controlled @ 60's , on Amiodarone gtt improved Qtc on IV Heparin gtt on Dobutamine and Levophed gtt if pt able to recover enough to be extubated without neurological deficit will benefit with AICD placement during this hospital cardiology following 02/18/2017: HX of CAD with ischemic cardiomyopathy , 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 developed pneumothorax with extensive Rt sided sub q emphysema due to CPR Cxray shows 02/16/17 : Rt sided pneumothorax with max pleural separation of 1.4 cm s/p rt right chest tube placement while in ICU , cardiac rhythm changed to Afib on amiodarone gtt /IV heparin started due arrhythmia -Afib appreciate input form Cardiology warming process started this morning appreciate help and input form the drill presser if pt is able to recover with adequate neurological capacity will need AICD placement AFIB : paroxysmal Afib due to cardiogenic shock / hypoxia on Amiodarone 200 mg BID via OG tube IV heparin gtt d/yaima Eliquis 5 mg BID via OG tube anticoagulation will be on hold today as pt may benefit from Bronch tomorrow per drill presser for continued fail on CPAP trial ACUTE CVA : MRI of brain today 02/21/17 Findings concerning for a punctate focus of ischemia at the junction of the right inferior jeannie and medulla. This may represent a small lacunar infarct versus a punctate embolic infarct. No evidence of anoxic brain injury. possible cardiogenic emboli /pt been started on IV heparin since admission -pt is on Eliquis via NG tube on hold today for possible Bronch tomorrow if pt's respiratory status does not improve ELEVATED TROPONIN : due to Vtach cardiac arrest /aggressive CPR doubt due to acute ID /atherothrombotic plaque rupture Kris 0.40-> 10-> 11-> 8.4 ECHO 02/16/17 : thinning and scar of the inferior base, posterior and inferolateral ye. Septal motion is consistent with conduction abnormality. moderate apical wall hypokinesis. inferior wall akinesis. posterior wall akinesis. Ejection Fraction = 25-30%. ECHO unchanged from prior study on 12/2016 Cardiology following closely ROBERTO ON CKD STAGE 3 : resolved , Cr improved 1.06 due to Cardiac arrest /hypoperfusion of organs TYPE 2 DM : on Insulin gtt pharmacy following for glycemic management LACTIC ACIDOSIS : resolved Lactic acid 1.2 -after adequate tissue perfusion establish with Hypothermic protocol /pressors lactic acid was > 2 , with out any evidence of infection or sepsis due to Cardiogenic shock /organ /tissue hypoperfusion Supportive care provided with IV pressors /Hypothermic protocol DVT PROPHYLAXIS Eliquis DNR /DNI DISPOSITION remains critically ill in ICU Vital Signs: Date Time Temp Pulse Resp B/P (MAP) Pulse Ox O2 Delivery O2 Flow Rate FiO2 02/22/17 12:01 37.5 104 32 102/50 (67) 89 02/22/17 12:00 108 34 92/48 (63) 89 02/22/17 12:00 89 Mechanical Ventilator 50 02/22/17 12:00 50 02/22/17 11:45 108 36 103/52 (69) 90 02/22/17 11:31 50 02/22/17 11:30 103 26 106/48 (67) 91 02/22/17 11:15 105 28 115/50 (71) 88 02/22/17 11:01 98 26 114/50 (71) 89 02/22/17 11:00 97 25 116/50 (72) 89 02/22/17 10:45 105 31 118/53 (74) 89 02/22/17 10:30 102 29 121/54 (76) 90 02/22/17 10:15 98 21 107/42 (63) 91 02/22/17 10:15 98 21 107/42 (63) 91 02/22/17 10:10 30 02/22/17 10:01 102 30 111/49 (69) 91 02/22/17 10:00 102 29 112/49 (70) 91 02/22/17 09:45 96 23 93/42 (59) 94 02/22/17 09:41 30 02/22/17 09:30 100 25 106/47 (66) 93 02/22/17 09:15 100 27 103/46 (65) 94 02/22/17 09:01 98 22 94/42 (59) 94 02/22/17 09:00 99 22 96/43 (60) 94 02/22/17 08:45 99 26 106/34 (58) 94 02/22/17 08:30 96 29 109/50 (69) 94 02/22/17 08:15 30 02/22/17 08:15 94 Mechanical Ventilator 30 02/22/17 08:15 98 26 102/48 (66) 95 02/22/17 08:14 37.2 99 22 85/53 (64) 94 Mechanical Ventilator 30 93/43 (60) 02/22/17 08:01 96 24 94/41 (58) 94 02/22/17 08:00 96 26 98/43 (61) 94 02/22/17 07:19 30 02/22/17 06:01 101 27 93/58 (63) 94 104/48 (63) 02/22/17 05:36 30 02/22/17 05:01 103 22 87/55 (57) 94 97/42 (56) 02/22/17 04:01 105 26 98/57 (62) 93 105/45 (59) 02/22/17 04:00 37.3 02/22/17 04:00 30 02/22/17 04:00 94 Mechanical Ventilator 30 02/22/17 03:01 104 29 101/57 (65) 93 110/45 (63) 02/22/17 02:01 106 29 100/62 (65) 94 110/46 (63) 02/22/17 02:01 30 02/22/17 01:01 104 23 101/62 (65) 94 113/46 (68) 02/22/17 00:01 98 23 98/60 (70) 96 99/54 02/22/17 00:01 36.9 02/21/17 23:59 30 02/21/17 23:59 95 Mechanical Ventilator 30 02/21/17 23:48 97 26 111/62 (70) 96 111/51 (66) 02/21/17 23:40 30 02/21/17 22:01 81 20 95/52 (63) 96 104/50 02/21/17 21:00 83 21 111/43 (61) 98 02/21/17 20:01 82 22 113/58 (63) 99 124/42 (65) 02/21/17 20:00 95 Mechanical Ventilator 30 02/21/17 20:00 37.1 02/21/17 20:00 30 02/21/17 19:10 30 02/21/17 19:00 92 26 123/49 (68) 98 02/21/17 18:20 37.1 90 20 98/53 (68) 95 Mechanical Ventilator 30 124/98 (107) 02/21/17 18:09 30 02/21/17 16:15 37.3 77 20 88/57 (67) 96 02/21/17 16:01 37.2 81 21 110/46 (67) 97 02/21/17 16:00 37.2 78 24 97/42 (60) 95 02/21/17 16:00 Mechanical Ventilator 30 02/21/17 16:00 37.1 82 20 102/55 (71) 97 Mechanical Ventilator 30 104/49 (67) 02/21/17 16:00 30 02/21/17 15:45 37.2 84 21 100/47 (64) 96 02/21/17 15:30 37.2 81 23 96/47 (63) 96 02/21/17 15:28 30 02/21/17 15:15 37.2 79 20 102/47 (65) 96 02/21/17 15:00 37.2 82 22 100/44 (62) 94 02/21/17 14:45 37.1 82 23 94/72 (79) 96 02/21/17 14:30 37.1 80 21 120/42 (68) 95 02/21/17 14:24 30 02/21/17 14:15 37.1 83 23 113/41 (65) 94 02/21/17 14:01 37.0 78 20 119/43 (68) 95 02/21/17 14:00 37.0 82 20 111/41 (64) 95 02/21/17 13:45 37.0 81 20 115/42 (66) 94 02/21/17 13:30 37.0 78 22 116/42 (66) 94 Lab Results: Results Past 24 Hours Test 02/21/17 14:09 02/21/17 15:16 02/21/17 15:56 02/21/17 16:47 Range/Units Bedside Glucose (other) 211 70-99 mg/dl Bedside Glucose 209 219 189 70-99 mg/dl Test 02/21/17 19:22 02/21/17 20:21 02/21/17 22:01 02/21/17 22:56 Range/Units Bedside Glucose 162 132 141 147 70-99 mg/dl Test 02/22/17 00:46 02/22/17 02:50 02/22/17 04:00 02/22/17 04:41 Range/Units Bedside Glucose 170 212 243 70-99 mg/dl White Blood Count 6.41 4.8-10.8 K/uL Red Blood Count 3.87 4.7-6.1 M/uL Hemoglobin 12.6 14.0-18.0 g/dL Hematocrit 37.1 42-52 % Mean Corpuscular Volume 95.9 80-100 fL Mean Corpuscular Hemoglobin 32.6 25-34 pg Mean Corpuscular Hemoglobin Concent 34.0 32-36 g/dl Platelet Count 102 130-400 K/uL Mean Platelet Volume 11.6 7.4-10.4 fL Neutrophils (%) (Auto) 79.7 % Lymphocytes (%) (Auto) 8.9 % Monocytes (%) (Auto) 9.8 % Eosinophils (%) (Auto) 0.8 % Basophils (%) (Auto) 0.2 % Neutrophils # (Auto) 5.11 1.4-6.5 K/uL Lymphocytes # (Auto) 0.57 1.2-3.4 K/uL Monocytes # (Auto) 0.63 0.11-0.59 K/uL Eosinophils # (Auto) 0.05 0-0.5 K/uL Basophils # (Auto) 0.01 0-0.2 K/uL RDW Standard Deviation 55.3 36.4-46.3 fL RDW Coefficient of Variation 15.9 11.5-14.5 % Immature Granulocyte % (Auto) 0.6 % Immature Granulocyte # (Auto) 0.04 0.00-0.02 K/uL Prothrombin Time 11.2 9.0-12.0 SECONDS Prothromb Time International Ratio 1.1 0.9-1.1 Activated Partial Thromboplast Time 33.4 21.0-31.0 SECONDS Partial Thromboplastin Ratio 1.3 Sodium Level 134 136-145 mmol/L Potassium Level 4.2 3.5-5.1 mmol/L Chloride Level 102 98-107 mmol/L Carbon Dioxide Level 27 21-32 mmol/L Anion Gap 5.0 3-11 mmol/L Blood Urea Nitrogen 29 7-18 mg/dl Creatinine 1.16 0.60-1.40 mg/dl Est Creatinine Clear Calc Drug Dose 59.0 ml/min Estimated GFR () 71.5 Estimated GFR (Non- 61.7 BUN/Creatinine Ratio 25.0 10-20 Random Glucose 242 70-99 mg/dl Calcium Level 8.0 8.5-10.1 mg/dl Phosphorus Level 2.3 2.5-4.9 mg/dl Magnesium Level 2.2 1.8-2.4 mg/dl Total Bilirubin 0.9 0.2-1 mg/dl Direct Bilirubin 0.5 0-0.2 mg/dl Aspartate Amino Transf (AST/SGOT) 57 15-37 U/L Alanine Aminotransferase (ALT/SGPT) 56 12-78 U/L Alkaline Phosphatase 199 45-117 U/L Total Protein 5.2 6.4-8.2 gm/dl Albumin 1.9 3.4-5.0 gm/dl Test 02/22/17 04:59 02/22/17 06:02 02/22/17 07:17 02/22/17 08:19 Range/Units Bedside Glucose 216 240 229 224 70-99 mg/dl Test 02/22/17 09:22 02/22/17 10:11 02/22/17 11:37 02/22/17 12:37 Range/Units Bedside Glucose 240 174 162 156 70-99 mg/dl
[2017-02-22] MEDS: IMPACT LIQ 1000 ML BAG OG SCH (14:00)
[2017-02-22] MEDS: HYDROmorphone INJ 1 MG/ML SYR IV PRN ×2 (14:07→22:13)
[2017-02-22] MEDS ORDERED: PHARMACY GLYCEMIC MGMT CONSULT PRN (15:30)
[2017-02-22] MEDS ORDERED: CONSULT PHARMACY STA (15:52)
--- NOTE | 2017-02-22 15:57 | Procedure Note ---
Procedure Note Procedure Date Feb 22, 2017. Procedure Description Procedure Name: Bronchoscopy Procedure time out: side/site verified, patient ID confirmed, correct procedure Consent obtained: written Performed by: attending Indications: diagnostic, therapeutic Contraindications: none Description: Microscopy indication was persistent hypoxia Y the patient being intubated for pulmonary toilet. Consent obtained from the sister and her risk and benefits explained in details. Agree to the procedure. Timeout was done by the nursing staff. Patient was already intubated and bitten the ICU and monitored with ICU style. The procedure was done with minimal sedation a 4 mg of Dilaudid, 10 mL of 1% lidocaine was used through the entire procedure. The bronchoscope passed through the blood appetite. And the tracheobronchial tree examined to the sub- subsegmental level. Findings: #1 moderate amount of secretions noted in the right lower lobe and its branches as well as the left lower lobe. All suctioned to clear. #2 no endobronchial lesion. #3 granulation tissue at the distal trachea from intubation. #4 specimen was sent after injecting total of 10 mL of bronchial wash for microbiology, Gram stain and culture. #5 the bronchoscope was retracted and no immediate complication were reported. #6 the procedure was tolerated well. Thank you Complications: none Patient tolerated procedure: well
[2017-02-22] MEDS ORDERED: INSULIN GLARGINE SOLOSTAR 100 UNITS/ML 3 ML PEN SC ONE (16:00)
--- NOTE | 2017-02-22 16:03 | Pharmacy Progress Note ---
Glycemic Control Intl Consult Date of Service Feb 22, 2017. Scope Glycemic Pharmacist consulted by Dr Porras on 02/22/17 for glycemic control and to write orders per [facility] inpatient glycemic control protocol Objective Weight (Kilograms): 75.800 Accuchecks BSG (last 24hrs): Test 02/21/17 15:56 02/21/17 16:47 02/21/17 19:22 02/21/17 20:21 Bedside Glucose 219 mg/dl (70-99) 189 mg/dl (70-99) 162 mg/dl (70-99) 132 mg/dl (70-99) Test 02/21/17 22:01 02/21/17 22:56 02/22/17 00:46 02/22/17 02:50 Bedside Glucose 141 mg/dl (70-99) 147 mg/dl (70-99) 170 mg/dl (70-99) 212 mg/dl (70-99) Test 02/22/17 04:00 02/22/17 04:41 02/22/17 04:59 02/22/17 06:02 Bedside Glucose 243 mg/dl (70-99) 216 mg/dl (70-99) 240 mg/dl (70-99) Random Glucose 242 mg/dl (70-99) Test 02/22/17 07:17 02/22/17 08:19 02/22/17 09:22 02/22/17 10:11 Bedside Glucose 229 mg/dl (70-99) 224 mg/dl (70-99) 240 mg/dl (70-99) 174 mg/dl (70-99) Test 02/22/17 11:37 02/22/17 12:37 Bedside Glucose 162 mg/dl (70-99) 156 mg/dl (70-99) Laboratory Data (last 24hrs) Test 02/22/17 04:41 Anion Gap 5.0 mmol/L BUN/Creatinine Ratio 25.0 Blood Urea Nitrogen 29 mg/dl Creatinine 1.16 mg/dl Potassium Level 4.2 mmol/L Sodium Level 134 mmol/L White Blood Count 6.41 K/uL Red Blood Count 3.87 M/uL Hemoglobin 12.6 g/dL Hematocrit 37.1 % Mean Corpuscular Volume 95.9 fL Mean Corpuscular Hemoglobin 32.6 pg Mean Corpuscular Hemoglobin Concent 34.0 g/dl Platelet Count 102 K/uL Mean Platelet Volume 11.6 fL Neutrophils (%) (Auto) 79.7 % Lymphocytes (%) (Auto) 8.9 % Monocytes (%) (Auto) 9.8 % Eosinophils (%) (Auto) 0.8 % Basophils (%) (Auto) 0.2 % Neutrophils # (Auto) 5.11 K/uL Lymphocytes # (Auto) 0.57 K/uL Monocytes # (Auto) 0.63 K/uL Eosinophils # (Auto) 0.05 K/uL Basophils # (Auto) 0.01 K/uL HbA1c Test 02/18/17 04:07 Hemoglobin A1c 6.9 % (4.5-5.6) H Recent Pertinent Medications Outpatient Anti-diabetic Regimen: * none * A1c = 6.9 % 02/18/17 The patient is currently receiving: * insulin drip fluctuating 1.3-2.7 units/hr Risk Factors for Insulin Resistance: * post cardiac arrest * Pressors: dopamine * Diet: impact 80cc/hr * Mechanical Ventilation:intubated Assessment & Plan ASSESSMENT: * Discussed with adjunct physics instructor. We will attempt to transition the patient off of the insulin drip. I will give a total daily dose of lantus now and start twice daily lantus in the morning. I will also schedule q 6 novolog while the patient remains on impact TF @ 80cc/hr PLAN FOR INPATIENT GLYCEMIC CONTROL: * lantus 40 units @1600 * Basal insulin with LANTUS scale SQ BID starting 02/23 @ 0900 based on BSG * Correctional Insulin with NOVOLOG per scale Q6hrs * Goal Range: Low 120 mg/dL - High 160 mg/dL * Correction Factor: 20 mg/dL/unit * Nutritional / Prandial insulin per carb ratio of 1 unit per 9 grams CHO consumed -While impact runs at 80cc/hr (~10.4g/hr) give 7 units q6 hours to cover carbs -Discussed plan with RN, stressed to call pharmacy if TF rate changes at all to adjust accordingly * Please note that the plan above was derived based on current level of insulin resistance and hospital stress. These recommendations are appropriate for inpatient admission only. Plan of care upon discharge will need to be reassessed to avoid potential outpatient hypo/hyperglycemia. Thank you.
[2017-02-22] MEDS ORDERED: PIPERACILL/TAZOBAC IV 3.375 GM in DEXTROSE 5% 100ML IV ONE (17:00)
[2017-02-22] MEDS ORDERED: PIPERACILL/TAZOBAC CONSULT ACTIVE PRN (17:00)
[2017-02-22] MEDS ORDERED: VANCOMYCIN CONSULT ACTIVE PRN (17:00)
[2017-02-22] MEDS ORDERED: VANCOMYCIN INJ 1,750 MG in SODIUM CHLORIDE 0.9% 500ML 500 ML IV ONE (17:30)
--- NOTE | 2017-02-22 19:03 | Pharmacy Progress Note ---
Pharmacy Antibiotic Consult Date of Service: Feb 22, 2017. Pharmacy Dosing Scope Pharmacy is consulted to initiate Vancomycin IV dosing therapy, order appropriate labs and adjust drug dose/frequency. Subjective The patient is a 76 year old male admitted on Feb 17, 2017 at 02:38. Objective Height (Feet): 6 Height (Inches): 0.00 Weight (Kilograms): 75.800 Lab Results (24hrs): Test 02/22/17 04:41 02/22/17 14:04 02/22/17 14:42 02/22/17 16:31 White Blood Count 6.41 K/uL (4.8-10.8) Red Blood Count 3.87 M/uL (4.7-6.1) Hemoglobin 12.6 g/dL (14.0-18.0) Hematocrit 37.1 % (42-52) Mean Corpuscular Volume 95.9 fL (80-100) Mean Corpuscular Hemoglobin 32.6 pg (25-34) Mean Corpuscular Hemoglobin Concent 34.0 g/dl (32-36) Platelet Count 102 K/uL (130-400) Mean Platelet Volume 11.6 fL (7.4-10.4) Neutrophils (%) (Auto) 79.7 % Lymphocytes (%) (Auto) 8.9 % Monocytes (%) (Auto) 9.8 % Eosinophils (%) (Auto) 0.8 % Basophils (%) (Auto) 0.2 % Neutrophils # (Auto) 5.11 K/uL (1.4-6.5) Lymphocytes # (Auto) 0.57 K/uL (1.2-3.4) Monocytes # (Auto) 0.63 K/uL (0.11-0.59) Eosinophils # (Auto) 0.05 K/uL (0-0.5) Basophils # (Auto) 0.01 K/uL (0-0.2) RDW Standard Deviation 55.3 fL (36.4-46.3) RDW Coefficient of Variation 15.9 % (11.5-14.5) Immature Granulocyte % (Auto) 0.6 % Immature Granulocyte # (Auto) 0.04 K/uL (0.00-0.02) Prothrombin Time 11.2 SECONDS (9.0-12.0) Prothromb Time International Ratio 1.1 (0.9-1.1) Activated Partial Thromboplast Time 33.4 SECONDS (21.0-31.0) Partial Thromboplastin Ratio 1.3 Sodium Level 134 mmol/L (136-145) Potassium Level 4.2 mmol/L (3.5-5.1) Chloride Level 102 mmol/L (98-107) Carbon Dioxide Level 27 mmol/L (21-32) Anion Gap 5.0 mmol/L (3-11) Blood Urea Nitrogen 29 mg/dl (7-18) Creatinine 1.16 mg/dl (0.60-1.40) Est Creatinine Clear Calc Drug Dose 59.0 ml/min Estimated GFR () 71.5 Estimated GFR (Non- 61.7 BUN/Creatinine Ratio 25.0 (10-20) Random Glucose 242 mg/dl (70-99) Calcium Level 8.0 mg/dl (8.5-10.1) Phosphorus Level 2.3 mg/dl (2.5-4.9) Magnesium Level 2.2 mg/dl (1.8-2.4) Total Bilirubin 0.9 mg/dl (0.2-1) Direct Bilirubin 0.5 mg/dl (0-0.2) Aspartate Amino Transf (AST/SGOT) 57 U/L (15-37) Alanine Aminotransferase (ALT/SGPT) 56 U/L (12-78) Alkaline Phosphatase 199 U/L (45-117) Total Protein 5.2 gm/dl (6.4-8.2) Albumin 1.9 gm/dl (3.4-5.0) Blood Gas Sample Site Art Line Bedside Blood Gas pH (LAB) 7.36 (7.35-7.45) Bedside Blood Gas pCO2 (LAB) 49 mmHg (35-46) Bedside Blood Gas pO2 (LAB) 59 mmHg (80-95) Bedside Blood Gas HCO3 (LAB) 28 meq/L (19-24) Bedside Blood Gas Total CO2 29 mEq/l (24-31) Bedside Blood Gas Base Excess (LAB) 2.0 meq/L (-9-1.8) Bedside Blood Gas O2 Saturation 88.0 % (90-95) Ran Test NA Oxygen Delivery Device Ventilator Bedside Oxygen Rate (breaths/min) 20 Blood Gas Minute Ventilation 13.1 Bedside FiO2 50 % Blood Gas Tidal Volume 450 Blood Gas PEEP 5 Bedside Glucose 133 mg/dl (70-99) 117 mg/dl (70-99) Micro Results: see emr Recent Pertinent Medications Initiated on zosyn as well. Assessment & Plan Vancomycin and zosyn initiated post bronchoscopy today. Loading dose: 1750 mg IV X 1 dose then: Maintenance dose: 1000 mg IV every 14 hours starting 02/23 @ 0730. Goal trough level estimate: between 15 - 20 mcg/mL. Peak and trough or random level has been ordered for: @ 0700. Pharmacy will continue to follow and will adjust dose/frequency as necessary. Thank you
[2017-02-22] MEDS ORDERED: DC IV INSULIN INFUSION ONE (22:00)
[2017-02-22] MEDS: PIPERACILL/TAZOBAC IV 3.375 GM in DEXTROSE 5% 100ML 100 ML IV SCH (22:08)
[2017-02-23] VITALS (37 sets, daily range): BP systolic 85–127; BP diastolic 46–65; PULSE 79–98; TEMP 36.8–36.9; O2SAT 93–99
[2017-02-23] MEDS: LACTULOSE SYRUP 30 GM/45 ML UDP PO SCH ×4 (03:00→21:12)
[2017-02-23] MEDS: HYDROmorphone INJ 1 MG/ML SYR IV PRN ×4 (04:17→18:23)
[2017-02-23] MEDS: INSULIN ASPART 100 UNITS/ML 3 ML PEN SC SCH ×3 (05:04→17:45)
[2017-02-23 05:50] LABS: CREATININE 1.21 mg/dl (0.60-1.40)
[2017-02-23 07:00] LABS: CALCIUM 8.8 mg/dl (8.5-10.1); CREATININE 1.2 mg/dl (0.60-1.40); POTASSIUM 4.7 mmol/L (3.5-5.1)
[2017-02-23] MEDS: ALBUTEROL HFA 8 GM INHALER INH SCH ×3 (07:00→14:40)
[2017-02-23] MEDS: IPRATROPIUM BROMIDE HFA INHALER INH SCH ×3 (07:00→14:40)
[2017-02-23] MEDS: PIPERACILL/TAZOBAC IV 3.375 GM in DEXTROSE 5% 100ML 100 ML IV SCH ×3 (07:04→21:37)
[2017-02-23] MEDS: FAMOTIDINE IV INJ 20 MG in SYRINGE 3 ML IV SCH ×2 (07:04→17:26)
[2017-02-23] MEDS: VANCOMYCIN INJ 1,000 MG in SODIUM CHLORIDE 0.9% 250ML 250 ML IV SCH ×2 (07:35→21:13)
[2017-02-23] MEDS: APIXABAN 2.5 MG TAB PO SCH ×2 (08:07→21:12)
[2017-02-23] MEDS: [UNRECOGNIZED DRUG - OTHER] IV PRN (08:09)
[2017-02-23] MEDS: DOPAMINE 400 MG IV PRN (08:09)
[2017-02-23] MEDS: DOCUSATE SODIUM 100 MG/10 ML UDC PO SCH ×2 (08:10→21:12)
[2017-02-23] MEDS: POLYETHYLENE (MIRALAX) 17 GM PACK PO SCH (08:10)
[2017-02-23] MEDS: AMIODARONE 200 MG TAB PO SCH ×2 (08:10→21:12)
[2017-02-23] MEDS ORDERED: INSULIN GLARGINE SOLOSTAR 100 UNITS/ML 3 ML PEN SC SCH (09:00)
--- NOTE | 2017-02-23 09:55 | Pharmacy Progress Note ---
Pharmacy Glycemic Short Note 2 Date of Service Feb 23, 2017. OUTPATIENT ANTIDIABETIC REGIMEN: * N/A, no outpatient antidiabetic regimen. However, A1c is diagnostic for diabetes since >6.5% * A1c = 6.9% on 02/18/17 ASSESSMENT: * 76yo T2DM male with hyperglycemia secondary to baseline DM, infection, stress , continuous tube feedings, etc * Pt was receiving IV insulin infusion 02/17 - 02/22 with near adequate control. Pt transitioned to SQ basal bolus insulin regimen yesterday based off of IV insulin infusion drip rate data and weight based dosing * BSGs over the past 24hrs ranging 117 - 240 mg/dl * AM fasting BSG is in goal range at 133mg/dl --> no changes needed to basal insulin * "Post-prandial" BSGs are in range with calculated CHO coverage for Impact continuous tube feedings. PLAN FOR INPATIENT GLYCEMIC CONTROL: SQ basal bolus insulin regimen based off of an estimated total daily dose of ~ 65 units/day. * Basal insulin * Lantus SQ BID - dosing based off of BSG until steady state reached. * BSG <180 --> give Lantus 16 units * BSG 180 or above --> give Lantus 19 units * Bolus insulin * NovoLog per scale ACHS or Q6hrs while NPO * Goal Range: Low 120 mg/dL - High 160 mg/dL * Correction Factor: 20 mg/dL/unit * Nutritional / Prandial insulin per carb ratio of 1 unit per ~8 grams CHO consumed --> this equates to 7 units SQ Q 6 hrs to cover 62g CHO in impact @ 80ml/hr.
--- NOTE | 2017-02-23 10:40 | Critical Care Progress Note ---
Critical Care Progress Note Date of Service Feb 23, 2017. Attending Dr. Porras Subjective The patient is more awake today than yesterday, he was able to follow commands appropriately, however he failed CPAP trial again. They become cyanotic and hypoxic and had a brief episode of bradycardia resolved after sitting up the patient and place him back again on assist-control mode. The patient however could not give a reliable review of systems being intubated. Objective remains vented , sedated, under TTM. The patient completed his TTM, he started on a warming process, blood pressure dropped slightly requiring increasing dose of dopamine and adding Levophed. EEG did not reveal seizure activity in the past 24 hours. Urine output has been adequate. Subcutaneous emphysema on the right side has been stable. No air leak from the chest tube. His physical exam today revealed was sedated gentleman currently does not appear to be in any respiratory distress, his vital signs remained stable. Heart examination S1-S2 regular rate and rhythm. Mild bradycardia. Lungs with distant crackles right greater than left due to subcutaneous emphysema. Chest tube site appears to be clean. Abdomen is benign with subcutaneous emphysema trace edema in the periphery. Neurologic he is difficult to assess. Pupils are remains reactive. On 02/19/2017, the patient continued to be intubated. We were able to wean his sedation to off. Minimal leak from the chest tube was noted and likely related to defect in the tubing. Subcutaneous emphysema has been stable. On 02/20/2017, the patient remains intubated, moving mildly, does not have any purposeful movement or following commands, remains sedated although he has been off sedatives for at least 48 hours. His heart examination S1-S2 regular rate and rhythm, subcutaneous emphysema protruding good auscultation of the chest, abdomen is benign, trace edema in the periphery. Neurologically is difficult to assess. On 02/21/2017, the patient is intubated, not sedated, nonpurposeful movement noted, vital signs remained stable, the patient is off pressors, no JVP, subcutaneous emphysema has been stable, S1-S2 regular rate and rhythm, lungs were distant crackles likely from subcutaneous emphysema. Abdomen is benign no edema. Neurologically difficult to assess. On 02/22/2017, the patient physical exam has been stable, his O2 saturation has been variable around 93% mainly on 30%. Still have crepitus on the right side of the chest but has not expanded or gotten worse. S1-S2 regular rate and rhythm. Abdomen is benign edema in the periphery noted. Minimal air leak from the chest tube. Neurologically he is improving but still not able to breathe on his own. His neurologic exam definitely has improved the patient minimally opening his eyes but he could not make any eye contact. 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 The rest of his neurologic exam was difficult to assess. On 02/23/2017, the patient remains stable, his respiratory rate is variable depending on the ventilator mode, he had positive JVP, also saturation 94% on 40 %, heart examination S1-S2 regular rate and rhythm, lungs with crackles at the bases, subcutaneous emphysema is resolving on the right side, abdomen is benign , still have edema in the periphery, neurologically he is improving and does not appear to be focal. He is still somnolent. Current SOFA Score SOFA Score Response (Comments) Value PaO2/FiO2 (mmHg) < 400 1 Platelets (x10) > 150 0 Bilirubin (mg/dL) 1.2 - 1.9 1 Mary Coma Score 15 0 Level of Hypotension Dopamine > 5 mcq or Epi < 0.1 mcq 3 Creatinine (mg/dL) < 1.2 0 Total 5 Assessment & Plan I have reviewed his chest x-ray which showed mild pulmonary vascular congestion with left-sided pleural effusion and cardiomegaly. The chest catheter in place. There is no pneumothorax. On his labs. Reviewed personally. Impression: #1 cardiac arrest, due to V. tach/V. fib/torsades. #2 acute respiratory failure with possible development of acute lung injury as well. Bibasilar infiltrates is concerning. #3 acute lung injury and possible healthcare acquired pneumonia. #4 chronic kidney insufficiency, has been stable. #5 cardiomyopathy with ejection fraction 25%. #6 slight fluid overload. Plan: #1 I will start the patient again on the CPAP trial. The patient was placed on CPAP of 5 in upper support of 10 for 2 hours and after that he failed after mobilizing the patient. #2 I will obtain an ABG in the morning after the CPAP trial is re-attempted. #3 I would continue with vancomycin and Zosyn for another day. Today's date 2. If the patient does not have any pathogen from the bronchoscopy specimen, no need to continue antibiotics and can be stopped. #4 hopefully extubation in the morning. #5 the patient is off the insulin drip and currently on Lantus only 15 units. No need for additional coverage as the patient glucose is 133. #6 the patient is only 4.5 L positive and I would give him additional dose of Lasix for diuresis. #7 continue with bronchodilators. #8 the patient is on anticoagulation for A. fib, he is already prophylaxed for DVT. #9 GI prophylaxis. #10 daily. #11 daily updates to the family done including today. All the questions being answered. They are agreeable to the plan. #12 I will keep the chest tube in place. Minimal air leak was noted. Hopefully we will clamp the chest tube in the morning, in preparation to take it out. #13 case discussed with the staff in details. Critical care time spent with the patient was 45 minutes. Consults & Procedures Consultants: cardiology Procedures: as previous. Data Medications: Current Inpatient Medications Medications (Trade) Dose Ordered Sig/Shakira Route Start Time Stop Time Status Last Admin Dose Admin Ondansetron HCl (Zofran Inj) 4 mg Q6H PRN IV 02/17/17 02:30 03/19/17 02:29 Artificial Tears (Lacri-Lube Oph Oint) 1 appln Q2H PRN OPB 02/17/17 03:15 03/19/17 03:14 Famotidine 20 mg/ Syringe 5 ml @ 2.5 mls/min Q12H IV 02/17/17 06:00 03/19/17 05:59 02/23/17 07:04 2.5 MLS/MIN Glucose (Glucose 40% Gel) 15-30 GRAMS 15 GRAMS... UD PRN PO 02/17/17 05:15 03/19/17 05:14 Glucose (Glucose Chew Tab) 4-8 Tablets 4 Tabl... UD PRN PO 02/17/17 05:15 03/19/17 05:14 Dextrose (Dextrose 50% 50ML Syringe) 25-50ML OF 50% DW IV FOR... UD PRN IV 02/17/17 05:15 03/19/17 05:14 02/17/17 23:17 25 ML Glucagon (Glucagon Inj) 1 mg UD PRN SQ 02/17/17 05:15 03/19/17 05:14 Ipratropium [place] (Atrovent Hfa Inhaler) 4 puffs QIDR INH 02/17/17 08:00 03/19/17 07:59 02/23/17 07:00 4 PUFFS Albuterol (Ventolin Hfa Inhaler) 4 puffs QIDR INH 02/17/17 08:00 03/19/17 07:59 02/23/17 07:00 4 PUFFS Dopamine HCl/ Dextrose 250 ml @ 0 mls/hr Q0M PRN IV 02/17/17 16:13 03/19/17 16:12 02/23/17 08:09 11.4 MLS/HR Heparin Sodium (Porcine) (Heparin 10 Unit/ ml 5 ml Flush) 5 ml PRN PRN FLUSH 02/18/17 00:15 03/20/17 00:14 Enteral Nutritional Formula (Impact 1.0 Shyam) 1,000 ml UD OG 02/20/17 09:30 03/22/17 09:29 02/22/17 14:00 1,000 ML Docusate Sodium (coLACE SYRUP) 100 mg BID PO 02/20/17 21:00 03/22/17 20:59 02/23/17 08:10 100 MG Polyethylene (Miralax Powder Packet) 17 gm DAILY PO 02/21/17 09:00 03/23/17 08:59 02/23/17 08:10 17 GM Lactulose (Chronulac Syrup) 30 gm Q6H PO 02/21/17 09:00 03/23/17 08:59 02/23/17 08:06 30 GM Amiodarone HCl (Cordarone Tab) 200 mg BID PO 02/21/17 21:00 03/23/17 20:59 02/23/17 08:10 200 MG Apixaban (Eliquis Tab) 5 mg BID PO 02/21/17 16:00 03/23/17 15:59 Future hold 02/23/17 08:07 5 MG Gadobutrol (Gadavist) 7 mmol UD PRN IV 02/21/17 18:15 02/25/17 18:14 Acetaminophen (Tylenol Soln) 650 mg Q4H PRN PO 02/22/17 10:00 03/24/17 09:59 02/23/17 08:07 650 MG Hydromorphone HCl (Dilaudid Inj) 1 mg Q4 PRN IV 02/22/17 14:00 03/08/17 13:59 02/23/17 10:30 1 MG Miscellaneous Information (Consult Glycemic Management Pharmacy) 1 ea UD PRN N/A 02/22/17 15:30 03/24/17 15:29 Insulin Aspart (novoLOG ASPART) SLIDING SCALE Q6H SC 02/22/17 22:00 03/24/17 21:59 02/23/17 05:04 8 UNITS Insulin Glargine (Lantus Solostar Pen) SEE PROTOCOL Q12 HI 02/23/17 09:00 02/23/17 12:00 02/23/17 09:11 13 UNITS Vancomycin HCl 1000 mg/Sodium Chloride 270 ml @ 125 mls/hr Q14H IV 02/23/17 07:30 03/02/17 07:29 02/23/17 07:35 125 MLS/HR Piperacillin Sod/ Tazobactam Sod 3.375 gm/Dextrose 115 ml @ 28.75 mls/ hr Q8 IV 02/22/17 22:00 03/01/17 21:59 02/23/17 07:04 28.75 MLS/HR Vancomycin HCl (Consult) 1 [facility] PRN N/A 02/22/17 17:00 03/24/17 16:59 Piperacillin Sod/ Tazobactam Sod (Consult) 1 ea UD PRN N/A 02/22/17 17:00 03/24/17 16:59 Insulin Glargine (Lantus Solostar Pen) SEE PROTOCOL Q12H HI 02/23/17 18:00 03/25/17 17:59 Vital Signs: Date Time Temp Pulse Resp B/P (MAP) Pulse Ox O2 Delivery O2 Flow Rate FiO2 02/23/17 10:00 36.8 84 30 104/64 (77) 93 CPAP 40 Mechanical Ventilator 02/23/17 09:30 84 31 122/57 (78) 94 02/23/17 09:27 40 02/23/17 09:01 36.8 82 23 127/57 (80) 94 Mechanical Ventilator 40 02/23/17 08:01 36.8 82 26 122/51 (74) 96 Mechanical Ventilator 40 02/23/17 08:00 95 Mechanical Ventilator 40 02/23/17 08:00 40 02/23/17 07:12 36.8 81 23 115/53 (73) 99 Mechanical Ventilator 50 02/23/17 07:05 50 02/23/17 06:21 81 25 85/56 (66) 99 Mechanical Ventilator 50 02/23/17 06:00 81 20 102/48 (66) 99 Mechanical Ventilator 50 02/23/17 05:25 50 02/23/17 05:01 81 20 94/49 (64) 98 Mechanical Ventilator 50 02/23/17 05:00 81 20 98/46 (63) 98 Mechanical Ventilator 50 02/23/17 04:38 50 02/23/17 04:38 97 Mechanical Ventilator 50 02/23/17 04:01 86 15 94/61 (72) 96 Mechanical Ventilator 50 02/23/17 04:00 89 27 113/55 (74) 97 Mechanical Ventilator 50 02/23/17 03:01 85 23 106/54 (71) 97 Mechanical Ventilator 50 02/23/17 03:00 87 23 106/55 (72) 97 Mechanical Ventilator 50 02/23/17 02:01 83 22 99/52 (68) 97 Mechanical Ventilator 50 02/23/17 02:00 86 21 102/54 (70) 97 Mechanical Ventilator 50 02/23/17 01:23 50 02/23/17 01:01 84 21 98/51 (67) 97 Mechanical Ventilator 50 02/23/17 01:00 83 21 99/51 (67) 97 Mechanical Ventilator 50 02/23/17 00:01 80 20 96/50 (65) 97 Mechanical Ventilator 50 02/23/17 00:00 80 21 95/50 (65) 97 Mechanical Ventilator 50 02/23/17 00:00 50 02/23/17 00:00 97 Mechanical Ventilator 50 02/22/17 23:01 84 20 94/51 (65) 97 Mechanical Ventilator 50 02/22/17 23:00 86 20 97/52 (67) 97 Mechanical Ventilator 50 02/22/17 23:00 60 02/22/17 22:01 84 22 100/51 (67) 97 Mechanical Ventilator 50 02/22/17 22:00 36.8 87 22 100/53 (69) 97 Mechanical Ventilator 50 02/22/17 21:01 85 21 99/53 (68) 96 Mechanical Ventilator 50 02/22/17 21:00 84 22 99/52 (68) 96 Mechanical Ventilator 50 02/22/17 20:01 50 02/22/17 20:01 84 21 96/50 (65) 96 Mechanical Ventilator 50 02/22/17 20:01 97 Mechanical Ventilator 50 02/22/17 20:00 36.8 82 22 94/49 (64) 96 Mechanical Ventilator 50 02/22/17 19:52 60 02/22/17 19:01 82 22 99/52 (68) 96 02/22/17 19:00 86 22 102/52 (69) 96 17 18:01 85 22 98/54 (69) 96 02/22/17 18:00 84 21 97/53 (68) 96 02/22/17 17:48 60 02/22/17 17:45 86 22 107/57 (74) 96 02/22/17 17:30 88 20 100/56 (71) 95 02/22/17 17:15 86 21 102/56 (71) 94 02/22/17 17:01 85 22 93/53 (66) 94 02/22/17 17:00 89 21 98/57 (71) 94 16/17 16:45 87 22 99/55 (70) 95 16/17 16:45 87 22 99/55 (70) 95 16/17 16:30 91 21 100/56 (71) 94 02/22/17 16:15 37.2 90 21 108/55 (72) 92 17 16:01 92 20 95/50 (65) 93 02/22/17 16:00 97 20 95/50 (65) 93 16/17 16:00 70 02/22/17 16:00 95 Mechanical Ventilator 70 17 15:45 89 20 90/44 (59) 93 16/17 15:30 90 20 89/42 (58) 93 16/17 15:15 87 22 95/51 (66) 94 16/17 15:01 88 27 103/52 (69) 97 16/17 15:00 86 0 98/53 (68) 97 16/17 15:00 100 16/17 14:45 88 0 97/50 (66) 96 02/22/17 14:30 89 24 83/38 (53) 97 02/22/17 14:19 88 Mechanical Ventilator 60 02/22/17 14:15 94 23 100/47 (64) 94 02/22/17 14:01 102 32 116/55 (75) 88 02/22/17 14:01 102 32 116/55 (75) 88 02/22/17 14:00 100 33 96/47 (63) 89 02/22/17 14:00 100 33 96/47 (63) 89 02/22/17 13:45 94 33 118/55 (76) 88 02/22/17 13:30 95 34 118/55 (76) 88 02/22/17 13:15 82 32 125/56 (79) 89 02/22/17 13:01 102 36 106/50 (68) 88 02/22/17 13:00 101 33 107/52 (70) 88 02/22/17 12:45 105 36 104/51 (68) 88 02/22/17 12:30 103 16 121/54 (76) 88 02/22/17 12:15 109 32 101/50 (67) 89 02/22/17 12:01 37.5 104 32 102/50 (67) 89 02/22/17 12:01 104 32 102/50 (67) 89 02/22/17 12:00 108 34 92/48 (63) 89 02/22/17 12:00 89 Mechanical Ventilator 50 02/22/17 12:00 108 34 92/48 (63) 89 02/22/17 12:00 50 02/22/17 11:45 108 36 103/52 (69) 90 02/22/17 11:31 50 02/22/17 11:30 103 26 106/48 (67) 91 02/22/17 11:15 105 28 115/50 (71) 88 02/22/17 11:01 98 26 114/50 (71) 89 02/22/17 11:00 97 25 116/50 (72) 89 02/22/17 10:45 105 31 118/53 (74) 89 Laboratory Results: Last 24 Hours Test 02/22/17 11:37 02/22/17 12:37 02/22/17 13:23 02/22/17 14:04 Bedside Glucose 162 mg/dl 156 mg/dl 144 mg/dl Blood Gas Sample Site Art Line Bedside Blood Gas pH (LAB) 7.36 Bedside Blood Gas pCO2 (LAB) 49 mmHg Bedside Blood Gas pO2 (LAB) 59 mmHg Bedside Blood Gas HCO3 (LAB) 28 meq/L Bedside Blood Gas Total CO2 29 mEq/l Bedside Blood Gas Base Excess (LAB) 2.0 meq/L Bedside Blood Gas O2 Saturation 88.0 % Ran Test NA Oxygen Delivery Device Ventilator Bedside Oxygen Rate (breaths/min) 20 Blood Gas Minute Ventilation 13.1 Bedside FiO2 50 % Blood Gas Tidal Volume 450 Blood Gas PEEP 5 Test 02/22/17 14:42 02/22/17 16:31 02/22/17 20:38 02/23/17 04:12 Bedside Glucose 133 mg/dl 117 mg/dl 153 mg/dl 174 mg/dl Test 02/23/17 05:02 02/23/17 06:17 02/23/17 08:28 Creatinine 1.21 mg/dl 1.20 mg/dl Est Creatinine Clear Calc Drug Dose 57.4 ml/min 59.0 ml/min Estimated GFR () 67.9 68.6 Estimated GFR (Non- 58.6 59.2 Sodium Level 139 mmol/L Potassium Level 4.7 mmol/L Chloride Level 106 mmol/L Carbon Dioxide Level 30 mmol/L Anion Gap 3.0 mmol/L Blood Urea Nitrogen 44 mg/dl BUN/Creatinine Ratio 36.3 Random Glucose 150 mg/dl Calcium Level 8.8 mg/dl Bedside Glucose 133 mg/dl
[2017-02-23] MEDS ORDERED: FUROSEMIDE INJ 40 MG in SYRINGE 0 ML IV ONE (11:15)
[2017-02-23] MEDS ORDERED: INSULIN ASPART 100 UNITS/ML 3 ML PEN SC ONE (12:30)
--- NOTE | 2017-02-23 17:02 | Progress Note ---
Internal Med Progress Note Date of Service: Feb 23, 2017. Provider Documentation: SUBJECTIVE: failed CPAP trial today awake and alert on vent eyes are open , nodding head to communicate point to ET tube to shows discomfort OBJECTIVE: Vital Signs-as noted below Exam: General-intubated , awake and alert moving limbs , able to squeeze hand on command Eyes-reactive to light , equal ENT-ET tube in place Neck-Rt IJ present , rt lower neck crepitus + ( subcutaneous emphysema ) Lungs-diminished on right , + rales , + chest tube Heart-regular Abdomen-soft, Extremities-no edema noted Neuro-awake and alert , able to follow command Lab data as noted below. ASSESSMENT & PLAN: VTACH CARDIAC ARREST : 02/23/17 : unable to tolerate CPAP trial cont daily weaning protocol neurologically much improved , awake and alert , following commands 02/22/17: remains intubated , failed CPAP trial today CXray no pneumothorax noted ,satisfactory line placement -rt jugular CVP terminates at the brachiocephalic /SVC junction rt sided pleural catheter unchanged position mild central pulmonary congestion ordered 40 mg IV Lasix by Dr Porras on Amiodarone 200 mg VIA OG tube BID on Dopamine gtt Lopressor not initiated due to hypotensive Cardiology following 02/21/17 : remains intubated , off pressors on Amiodarone 200 mg per G-tube twice a day. IV heparin D/yaima on Eliquis 5 mg BID via G tube appreciate input form Cardiology and [facility] 02/20 : remains intubated continued CPAP trial 02/19/17 : taken off Hypothermic protocol , Body core temp at normal 37.5 started to wean off sedation ( required large amount of sedation : Fentanyl @ 200 mcq, Versed @ 10mg/h ) cont CPAP trial appreciate input /help from [facility] rt sided Chest tube remains in air seal converted to sinus rhythm /rate controlled @ 60's , on Amiodarone gtt improved Qtc on IV Heparin gtt on Dobutamine and Levophed gtt if pt able to recover enough to be extubated without neurological deficit will benefit with AICD placement during this hospital cardiology following 02/18/2017: HX of CAD with ischemic cardiomyopathy , 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 developed pneumothorax with extensive Rt sided sub q emphysema due to CPR Cxray shows 02/16/17 : Rt sided pneumothorax with max pleural separation of 1.4 cm s/p rt right chest tube placement while in ICU , cardiac rhythm changed to Afib on amiodarone gtt /IV heparin started due arrhythmia -Afib appreciate input form Cardiology warming process started this morning appreciate help and input form the substance abuse counselor if pt is able to recover with adequate neurological capacity will need AICD placement AFIB : paroxysmal Afib due to cardiogenic shock / hypoxia on Amiodarone 200 mg BID via OG tube Eliquis 5 mg BID via OG tube anticoagulation on hold as pt may benefit from Bronch tomorrow per substance abuse counselor for continued fail on CPAP trial ACUTE CVA : MRI of brain today 02/21/17 Findings concerning for a punctate focus of ischemia at the junction of the right inferior jeannie and medulla. This may represent a small lacunar infarct versus a punctate embolic infarct. No evidence of anoxic brain injury. possible cardiogenic emboli /pt been started on IV heparin since admission -pt is on Eliquis via NG tube on hold today for possible Bronch tomorrow if pt's respiratory status does not improve ELEVATED TROPONIN : due to Vtach cardiac arrest /aggressive CPR doubt due to acute [place] /atherothrombotic plaque rupture Kris 0.40-> 10-> 11-> 8.4 ECHO 02/16/17 : thinning and scar of the inferior base, posterior and inferolateral ye. Septal motion is consistent with conduction abnormality. moderate apical wall hypokinesis. inferior wall akinesis. posterior wall akinesis. Ejection Fraction = 25-30%. ECHO unchanged from prior study on 12/2016 Cardiology following closely ROBERTO ON CKD STAGE 3 : resolved , Cr improved 1.06 due to Cardiac arrest /hypoperfusion of organs TYPE 2 DM : on Insulin gtt pharmacy following for glycemic management LACTIC ACIDOSIS : resolved Lactic acid 1.2 -after adequate tissue perfusion establish with Hypothermic protocol /pressors lactic acid was > 2 , with out any evidence of infection or sepsis due to Cardiogenic shock /organ /tissue hypoperfusion Supportive care provided with IV pressors /Hypothermic protocol DVT PROPHYLAXIS Eliquis DNR /DNI DISPOSITION remains critically ill in ICU Vital Signs: Date Time Temp Pulse Resp B/P (MAP) Pulse Ox O2 Delivery O2 Flow Rate FiO2 02/23/17 17:45 40 02/23/17 17:00 96 24 124/56 (78) 96 Mechanical Ventilator 40 02/23/17 16:00 40 02/23/17 16:00 97 Mechanical Ventilator 40 02/23/17 16:00 36.9 89 23 107/51 (69) 97 Mechanical Ventilator 40 02/23/17 15:00 36.9 88 23 105/48 (67) 97 Mechanical Ventilator 40 02/23/17 14:40 40 02/23/17 14:00 36.9 98 22 123/52 (75) 96 Mechanical Ventilator 40 02/23/17 13:04 36.9 91 22 112/53 (72) 97 Mechanical Ventilator 40 02/23/17 12:00 40 02/23/17 12:00 95 Mechanical Ventilator 40 02/23/17 12:00 36.9 94 22 116/65 (82) 97 Mechanical Ventilator 40 02/23/17 11:15 40 02/23/17 11:00 36.8 79 20 97/49 (65) 97 Mechanical Ventilator 40 02/23/17 10:30 40 02/23/17 10:00 36.8 84 30 104/64 (77) 93 CPAP 40 Mechanical Ventilator 02/23/17 09:30 84 31 122/57 (78) 94 02/23/17 09:27 40 02/23/17 09:01 36.8 82 23 127/57 (80) 94 Mechanical Ventilator 40 02/23/17 08:01 36.8 82 26 122/51 (74) 96 Mechanical Ventilator 40 02/23/17 08:00 95 Mechanical Ventilator 40 02/23/17 08:00 40 02/23/17 07:12 36.8 81 23 115/53 (73) 99 Mechanical Ventilator 50 02/23/17 07:05 50 02/23/17 06:21 81 25 85/56 (66) 99 Mechanical Ventilator 50 02/23/17 06:00 81 20 102/48 (66) 99 Mechanical Ventilator 50 02/23/17 05:25 50 02/23/17 05:01 81 20 94/49 (64) 98 Mechanical Ventilator 50 02/23/17 05:00 81 20 98/46 (63) 98 Mechanical Ventilator 50 02/23/17 04:38 50 02/23/17 04:38 97 Mechanical Ventilator 50 02/23/17 04:01 86 15 94/61 (72) 96 Mechanical Ventilator 50 02/23/17 04:00 89 27 113/55 (74) 97 Mechanical Ventilator 50 02/23/17 03:01 85 23 106/54 (71) 97 Mechanical Ventilator 50 02/23/17 03:00 87 23 106/55 (72) 97 Mechanical Ventilator 50 02/23/17 02:01 83 22 99/52 (68) 97 Mechanical Ventilator 50 02/23/17 02:00 86 21 102/54 (70) 97 Mechanical Ventilator 50 02/23/17 01:23 50 02/23/17 01:01 84 21 98/51 (67) 97 Mechanical Ventilator 50 02/23/17 01:00 83 21 99/51 (67) 97 Mechanical Ventilator 50 02/23/17 00:01 80 20 96/50 (65) 97 Mechanical Ventilator 50 02/23/17 00:00 80 21 95/50 (65) 97 Mechanical Ventilator 50 02/23/17 00:00 50 02/23/17 00:00 97 Mechanical Ventilator 50 02/22/17 23:01 84 20 94/51 (65) 97 Mechanical Ventilator 50 02/22/17 23:00 86 20 97/52 (67) 97 Mechanical Ventilator 50 02/22/17 23:00 60 02/22/17 22:01 84 22 100/51 (67) 97 Mechanical Ventilator 50 02/22/17 22:00 36.8 87 22 100/53 (69) 97 Mechanical Ventilator 50 02/22/17 21:01 85 21 99/53 (68) 96 Mechanical Ventilator 50 02/22/17 21:00 84 22 99/52 (68) 96 Mechanical Ventilator 50 02/22/17 20:01 50 02/22/17 20:01 84 21 96/50 (65) 96 Mechanical Ventilator 50 02/22/17 20:01 97 Mechanical Ventilator 50 02/22/17 20:00 36.8 82 22 94/49 (64) 96 Mechanical Ventilator 50 02/22/17 19:52 60 02/22/17 19:01 82 22 99/52 (68) 96 02/22/17 19:00 86 22 102/52 (69) 96 Lab Results: Results Past 24 Hours Test 02/22/17 20:38 02/23/17 04:12 02/23/17 05:02 02/23/17 06:17 Range/Units Bedside Glucose 153 174 70-99 mg/dl Creatinine 1.21 1.20 0.60-1.40 mg/dl Est Creatinine Clear Calc Drug Dose 57.4 59.0 ml/min Estimated GFR () 67.9 68.6 Estimated GFR (Non- 58.6 59.2 Sodium Level 139 136-145 mmol/L Potassium Level 4.7 3.5-5.1 mmol/L Chloride Level 106 98-107 mmol/L Carbon Dioxide Level 30 21-32 mmol/L Anion Gap 3.0 3-11 mmol/L Blood Urea Nitrogen 44 7-18 mg/dl BUN/Creatinine Ratio 36.3 10-20 Random Glucose 150 70-99 mg/dl Calcium Level 8.8 8.5-10.1 mg/dl Test 02/23/17 08:28 02/23/17 11:20 02/23/17 12:00 02/23/17 16:53 Range/Units Bedside Glucose 133 149 240 70-99 mg/dl Blood Gas Sample Site Art Line Bedside Blood Gas pH (LAB) 7.34 7.35-7.45 Bedside Blood Gas pCO2 (LAB) 55 35-46 mmHg Bedside Blood Gas pO2 (LAB) 93 80-95 mmHg Bedside Blood Gas HCO3 (LAB) 30 19-24 meq/L Bedside Blood Gas Total CO2 31 24-31 mEq/l Bedside Blood Gas Base Excess (LAB) 4.0 -9-1.8 meq/L Bedside Blood Gas O2 Saturation 97.0 90-95 % Ran Test NA Oxygen Delivery Device Ventilator Bedside Oxygen Rate (breaths/min) 20 Blood Gas Minute Ventilation 9.2 Bedside FiO2 40 % Blood Gas Tidal Volume 500 Blood Gas PEEP 5
[2017-02-23] MEDS: IMPACT LIQ 1000 ML BAG OG SCH (17:25)
[2017-02-23] MEDS: INSULIN GLARGINE SOLOSTAR 100 UNITS/ML 3 ML PEN SC SCH (17:42)
[2017-02-23] MEDS ORDERED: FENTANYL 1250MCG/250ML NSS 250 ML IV PRN (23:45)
[2017-02-24] VITALS (59 sets, daily range): BP systolic 64–122; BP diastolic 44–72; PULSE 71–92; TEMP 36.4–37; O2SAT 94–98
[2017-02-24] MEDS ORDERED: FENTANYL CITRATE 1250MCG/250ML NSS ONE (00:10)
[2017-02-24] MEDS: LACTULOSE SYRUP 30 GM/45 ML UDP PO SCH ×2 (03:08→08:23)
[2017-02-24] MEDS: DOPAMINE 400 MG IV PRN (03:11)
[2017-02-24] MEDS: [UNRECOGNIZED DRUG - OTHER] IV PRN (03:11)
[2017-02-24] MEDS ORDERED: MIDAZOLAM HCL 5 MG/ML 1 ML VIAL IV STA (04:22)
[2017-02-24] MEDS ORDERED: MIDAZOLAM HCL 1 MG/ML 2ML VIAL ONE (04:28)
[2017-02-24 05:38] LABS: BASO % 0.2 %; BASO ABS # 0.02 K/uL (0-0.2); EOS % 2.7 %; EOS ABS # 0.25 K/uL (0-0.5); HEMATOCRIT 37.6 % (42-52); HEMOGLOBIN 12.4 g/dL (14.0-18.0); IG# 0.18 K/uL (0.00-0.02); MEAN CELL VOLUME 97.7 fL (80-100); MEAN CORPUSCULAR HEMOGLOBIN 32.2 pg (25-34); MEAN PLATELET VOLUME 11.5 fL (7.4-10.4); MONO % 8.9 %; MONO ABS # 0.82 K/uL (0.11-0.59); NEUT % 73.3 %; NEUT ABS # 6.78 K/uL (1.4-6.5); PLATELET COUNT 137 K/uL (130-400); RED CELL DISTRIBUTION WIDTH CV 16.1 % (11.5-14.5); RED CELL DISTRIBUTION WIDTH SD 57.4 fL (36.4-46.3); WHITE BLOOD COUNT 9.25 K/uL (4.8-10.8)
[2017-02-24] MEDS: FAMOTIDINE IV INJ 20 MG in SYRINGE 3 ML IV SCH ×2 (06:00→18:00)
[2017-02-24] MEDS: PIPERACILL/TAZOBAC IV 3.375 GM in DEXTROSE 5% 100ML 100 ML IV SCH (06:00)
[2017-02-24 06:19] LABS: CALCIUM 8.7 mg/dl (8.5-10.1); CREATININE 1.07 mg/dl (0.60-1.40); POTASSIUM 3.8 mmol/L (3.5-5.1)
--- NOTE | 2017-02-24 07:03 | NEUROLOGY CONSULTATION ---
DATE OF CONSULTATION: 02/21/2017 REASON FOR CONSULTATION: Assess neurologic prognosis status post at-home cardiac arrest. HISTORY OF PRESENT ILLNESS: The patient is a 76-year-old with a history of congestive heart failure, diabetes, MA, hypertension, left bundle-branch block and peripheral vascular disease. He has recently been, prior to admission, experiencing some discomfort in his upper abdomen radiating to the shoulder blades. On the day of admission, which was 02/17/2017, the patient noted, while carrying a laundry basket, some palpitations which resolved after 5 minutes of rest. He wears a Zoll LifeVest which did not discharge. Friday night, the patient experienced a cardiac arrest and was initially unresponsive. The Zoll LifeVest was shocked and then the patient aroused. EMT arrived to transport the patient to [facility], the patient became unresponsive, was shocked on entering the hospital and again in the ED. The patient was intubated, paralyzed, and a code called with multiple cardiac arrhythmias. There was difficulty achieving intravenous access and a right tibial interosseous catheter was placed. The patient was obtunded, underwent CPR. The patient was then placed on code arctic. Recorded vitals on admission include pulses ranging from 41-225 and an initial blood pressure of 59/33 and O2 sat as low as 84, although the O2 sats tended to be in the 90s. He had relative hypotension of several hours' duration. The patient had the placement of a right chest tube to drain a posttraumatic pneumothorax. The patient was placed on Levophed. His initial CT of the head done on admission showed no acute abnormality and the CT of the head performed earlier this morning similarly shows no acute abnormality, there is still preserved colin-white differentiation. The patient's fentanyl was discontinued. The patient had an order for fentanyl but it appears that it may not have been given and was discontinued this morning, 02/21/2017. Dopamine was discontinued on 02/17/2017, succinylcholine was discontinued on 02/17/2017, Demerol discontinued on 02/18/2017. The patient has had episodic EEG monitoring which in general has shown signs of moderate encephalopathy with low to moderate amplitude 5-6 Hertz frequency. No status epilepticus or subclinical seizures were noted and I am not aware of any myoclonus. PAST MEDICAL HISTORY: As above. SURGICAL HISTORY: Colonoscopy. SOCIAL HISTORY: Former smoker, does not drink. FAMILY HISTORY: Coronary artery disease. ALLERGIES: LISINOPRIL, ATORVASTATIN. HOME MEDICATIONS: Aspirin, DuoNeb, Cozaar, Toprol, Crestor, Aldactone and Demadex, p.r.n. Combivent, Prilosec, Viagra and Carafate. CURRENT MEDICATIONS: Amiodarone, Eliquis, MiraLax, lactulose, Colace, enteral nutrition, sliding scale insulin, Atrovent, Ventolin, famotidine. PHYSICAL EXAMINATION: VITAL SIGNS: 37, 73, 20, 111/41, 94% sat, FiO2 30%. The patient is overbreathing the ventilator. GENERAL: The patient is lethargic, raises his eyebrows when his name is called, lifts his right hand to command x1 and squeezes with his right hand. He is a morbidly obese male who is in no distress. HEENT: His pupils are miotic but reactive, could not accurately visualize the optic nerves. There is no fixed gaze preference. Doll's eyes are intact. Corneal responses are present. Gag reflex present bilaterally. There is normal facial symmetry to gag reflex. NECK: Supple. There are no carotid bruits on the left, unable to auscultate on the right secondary to line placement. HEART: Regular. ABDOMEN: Protuberant. EXTREMITIES: Feet are warm and dry. NEUROLOGIC: The patient spontaneously moves the right arm occasionally. No withdrawal to painful stimulation left upper. He spontaneously moves bilateral lower extremities. Sensory, cerebellar not tested. Reflexes are symmetric. Both toes are upgoing. IMPRESSION: This patient is approximately 4 days out from an [id number] cardiac arrest with a defibrillator vest. I do not see any predictors of poor outcome. The patient has present pupillary and corneal reflexes and has extensor motor responses, voluntary movement of right upper and bilateral lower. His course was not complicated by seizures and he has not had any post-hypoxic myoclonus. His imaging is reassuring and MRI hopefully will be the same, although the results are not necessarily prognosticators of recovery. The patient on exam has some minor asymmetry without withdrawal in the left upper and pontine pupils. I would not be surprised if we saw some hypoxic ischemic changes on MRI. I relayed this information to the patient's family. I will continue to follow with you. PATTI
--- NOTE | 2017-02-24 07:26 | PROGRESS NOTE ---
DATE: 02/22/2017 DATE: 02/22/2017 SUBJECTIVE: I am seeing Mr. Marie in followup of hypoxic ischemic event with MRI of the brain which I have reviewed. It shows a tiny punctate focus of ischemia at the junction of the right inferior jeannie and medulla possibily representing a small lacunar infarct versus punctate embolic infarct. No typical findings of anoxic brain injury. The patient is intubated, opens his eyes to commands and follows commands slowly. PHYSICAL EXAMINATION: 98.21, Pulse ox 91%. The patient's pupils are more mid position. Eye movements are conjugate and voluntary. The patient squeezes with both hands and questionably moves both legs to command. There is some triple flexion in the lower extremities with noxious stimulation. IMPRESSION: Mr. Marie is post an hypoxic ischemic event. 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 The patient is on amiodarone for rate control related to atrial fibrillation. I see the apixaban has been discontinued. Currently defer to the judgment of the treating physicians regarding the indication of its discontinuation. If no contraindication continue antiplatelet therapy with aspirin but again defer to the primary care ultimately anticoagulants should be used if no ongoing contraindications. He certainly appears more alert today and I am encouraged and see no signs suggesting a poor neurologic outcome. Will follow with you. PATTI
[2017-02-24] MEDS: IPRATROPIUM BROMIDE HFA INHALER INH SCH ×4 (07:30→20:30)
[2017-02-24] MEDS: ALBUTEROL HFA 8 GM INHALER INH SCH ×4 (07:30→20:30)
--- NOTE | 2017-02-24 07:36 | PROGRESS NOTE ---
DATE: 02/23/2017 I am seeing Mr. Marie in followup for hypoxic ischemic event followed by . His MRI of the brain showed asubacute infarction in the right pontomedullary junction. The patient is currently off of anticoagulant in anticipation of bronchoscopy. He has had some failed episodes of vent weaning with recurrent hypoxemia. On exam, 97/49, 97%. The patient is mildly sleepy, but arousable, intubated. His pupils are miotic, but reactive. He can count fingers appropriately. Nod to his name and pick location. No obvious facial asymmetry is noted; however, the ventilator is in place. He moves all 4 extremities. His reflexes are symmetric. His toes are mute. IMPRESSION: The patient is status post hypoxic ischemic event. There is a tiny pontomedullary infarct on the scan and no radiographic evidence of a major hypoxic ischemic brain injury. That having been said, the MRI is not necessarily predictive in an hypoxic ischemic event but I am extremely pleased to see the patient awake, alert, and following commands without focal findings. I will check in onto him later in the week. I think in terms of stroke prophylaxis, he will eventually go back on anticoagulant. PATTI
[2017-02-24] MEDS: AMIODARONE 200 MG TAB PO SCH ×2 (08:23→22:20)
[2017-02-24] MEDS: POLYETHYLENE (MIRALAX) 17 GM PACK PO SCH (08:23)
[2017-02-24] MEDS: IMPACT LIQ 1000 ML BAG OG SCH ×2 (08:23→10:04)
[2017-02-24] MEDS: DOCUSATE SODIUM 100 MG/10 ML UDC PO SCH (08:23)
[2017-02-24] MEDS: INSULIN GLARGINE SOLOSTAR 100 UNITS/ML 3 ML PEN SC SCH ×2 (08:25→18:10)
[2017-02-24] MEDS: INSULIN ASPART 100 UNITS/ML 3 ML PEN SC SCH ×4 (08:26→16:53)
[2017-02-24] MEDS: APIXABAN 2.5 MG TAB PO SCH ×2 (09:00→22:20)
[2017-02-24] MEDS ORDERED: VANCOMYCIN TROUGH ONE (11:00)
[2017-02-24] MEDS: VANCOMYCIN INJ 1,000 MG in SODIUM CHLORIDE 0.9% 250ML 250 ML IV SCH (11:43)
--- NOTE | 2017-02-24 12:30 | Pharmacy Progress Note ---
Pharmacy Abx Dose Short Note Date of Service Feb 24, 2017. Assessment & Plan Assessment * 76 year old male receiving vancomycin and Zosyn IV for treatment of possible pulmonary infxn * Day # 3 of antimicrobial therapy * MRSA nasal swab was negative, bronch wash cx grew normal pastor * Afebrile, no leukocytosis on today's labs Plan Vancomycin * Trough level of 10.3 mcg/mL is subtherapeutic. Level was drawn w/ 3rd maintenance dose therefore may increase further as therapy continues. Prior doses were hung at the appropriate times and level was drawn at the appropriate time. * Change to 1250 mg (~16mg/kg) IV every 14 hours * Goal trough level for pulm infxn : 15 to 20 mcg/mL * Trough level ordered for: 02/26/ w/ 3rd dose of new regimen if vancomycin therapy to continue Zosyn * continue 3.375gm ext-infusion Q 8 hrs for eCrCl > 20 Pharmacy will continue to follow and will adjust dose/frequency as necessary. Thank you.
[2017-02-24] MEDS ORDERED: FUROSEMIDE INJ 40 MG in SYRINGE 0 ML IV ONE (15:15)
[2017-02-24] MEDS ORDERED: POTASSIUM CHLORIDE 20 MEQ/15 ML UDC PO ONE (15:15)
--- NOTE | 2017-02-24 16:04 | DIAGNOSTIC IMAGING REPORT ---
CHEST ONE VIEW PORTABLE CLINICAL HISTORY: 76 years-old Male presenting with intubated. TECHNIQUE: Portable upright AP view of the chest was obtained. COMPARISON: 02/22/2017. FINDINGS: Endotracheal tube terminates 4 cm from the mickie. Nasogastric tube descends below the diaphragm. Right internal jugular central venous catheter terminates in the upper SVC. A right pleural pigtail catheter is again noted. Atherosclerosis of aortic arch. Cardiac silhouette remains enlarged. Interval increase in left basilar opacity with obscuration of the left hemidiaphragm. Patchy right basilar opacities stable to slightly increased from prior. Subcutaneous emphysema along the right lateral and anterior chest wall. No pneumothorax. Degenerative changes of the thoracic spine. IMPRESSION: 1. Lines and tubes appropriately positioned. 2. Increased left lower lobe atelectasis. 3. Stable to slightly increased right lung opacities. An infectious etiology cannot be excluded. Electronically signed by: Andrea Rice M.D. 02/24/2017 4:03 PM Dictated Date/Time: 02/24/2017 4:00 PM
--- NOTE | 2017-02-24 18:31 | PROGRESS NOTE ---
DATE: 02/24/2017 SUBJECTIVE: I am seeing Brent Marie in followup of a hypoxic ischemic event in the setting of a cardiac arrest. His MRI of the brain shows a tiny questionable right pontine infarct. The patient has had ongoing difficulty with ventilation Today, he can stand, he is awake and alert, following relatively complex commands. There is normal extraocular motility, facial symmetry. He moves all 4 extremities symmetrically and to command. IMPRESSION AND PLAN: This patient is status post a hypoxic ischemic event. Clinically, he is doing well without any focal signs. I see no clinical signs referable to the brainstem to suggest that that there would be any respiratory compromise on a central basis. The patient has a history of atrial fibrillation and has been on and off novel anticoagulants as needed for procedures. When clinically safe, would reinstitute novel anticoagulants, if no contraindications. I will sign off at present. [facility]
--- NOTE | 2017-02-24 19:20 | Progress Note ---
Internal Med Progress Note Date of Service: Feb 24, 2017. Provider Documentation: SUBJECTIVE: on CPAP trial today continues to follow command vital remains stable off pressor OBJECTIVE: Vital Signs-as noted below Exam: General-intubated , awake and alert moving limbs , able to squeeze hand on command Eyes-reactive to light , equal ENT-ET tube in place Neck-Rt IJ present , rt lower neck crepitus + ( subcutaneous emphysema ) Lungs-diminished on right , + rales , + chest tube Heart-regular Abdomen-soft, Extremities-no edema noted Neuro-awake and alert , able to follow command Lab data as noted below. ASSESSMENT & PLAN: VTACH CARDIAC ARREST : 02/24 on CPAP trial cont daily weaning protocol once extubated , will need to be evaluated for AICD placement Cardiology following 02/23/17 : unable to tolerate CPAP trial cont daily weaning protocol neurologically much improved , awake and alert , following commands 02/22/17: remains intubated , failed CPAP trial today CXray no pneumothorax noted ,satisfactory line placement -rt jugular CVP terminates at the brachiocephalic /SVC junction rt sided pleural catheter unchanged position mild central pulmonary congestion ordered 40 mg IV Lasix by Dr Porras on Amiodarone 200 mg VIA OG tube BID on Dopamine gtt Lopressor not initiated due to hypotensive Cardiology following 02/21/17 : remains intubated , off pressors on Amiodarone 200 mg per G-tube twice a day. IV heparin D/yaima on Eliquis 5 mg BID via G tube appreciate input form Cardiology and Evaluation Manager 02/20 : remains intubated continued CPAP trial 02/19/17 : taken off Hypothermic protocol , Body core temp at normal 37.5 started to wean off sedation ( required large amount of sedation : Fentanyl @ 200 mcq, Versed @ 10mg/h ) cont CPAP trial appreciate input /help from Evaluation Manager rt sided Chest tube remains in air seal converted to sinus rhythm /rate controlled @ 60's , on Amiodarone gtt improved Qtc on IV Heparin gtt on Dobutamine and Levophed gtt if pt able to recover enough to be extubated without neurological deficit will benefit with AICD placement during this hospital cardiology following 02/18/2017: HX of CAD with ischemic cardiomyopathy , CHF with combined systolic and diastolic HF ; EF < 30 % presented with Vtach cardiac arrest pt was placed on Zoll Life vest - became unresponsive at home , followed by shock therapy by life vest pt was shocked once by the life vest at home , and twice in ED developed Vtach Cardiac arrest -leading to CPR -admitted to ICU intubated/ started on Pressors -was placed on hypothermic protocol s/p right IJ central venous -placement by animal herder A right radial arterial line was inserted for continuous monitoring of blood pressures while on multiple vasopressors. developed pneumothorax with extensive Rt sided sub q emphysema due to CPR Cxray shows 02/16/17 : Rt sided pneumothorax with max pleural separation of 1.4 cm s/p rt right chest tube placement while in ICU , cardiac rhythm changed to Afib on amiodarone gtt /IV heparin started due arrhythmia -Afib appreciate input form Cardiology warming process started this morning appreciate help and input form the animal herder if pt is able to recover with adequate neurological capacity will need AICD placement AFIB : paroxysmal Afib due to cardiogenic shock / hypoxia on Amiodarone 200 mg BID via OG tube Eliquis 5 mg BID via OG tube ACUTE CVA : MRI of brain 02/21/17 Findings concerning for a punctate focus of ischemia at the junction of the right inferior jeannie and medulla. This may represent a small lacunar infarct versus a punctate embolic infarct. No evidence of anoxic brain injury. possible cardiogenic emboli /pt been started on IV heparin since admission -pt is on Eliquis via NG tube neurology following pt is showing good prognosis factor with improve neurological alertness continue weaning protocol from vent will need life long anticoagulation ELEVATED TROPONIN : due to Vtach cardiac arrest /aggressive CPR doubt due to acute TX /atherothrombotic plaque rupture Kris 0.40-> 10-> 11-> 8.4 ECHO 02/16/17 : thinning and scar of the inferior base, posterior and inferolateral ye. Septal motion is consistent with conduction abnormality. moderate apical wall hypokinesis. inferior wall akinesis. posterior wall akinesis. Ejection Fraction = 25-30%. ECHO unchanged from prior study on 12/2016 Cardiology following closely ROBERTO ON CKD STAGE 3 : resolved , Cr improved 1.06 due to Cardiac arrest /hypoperfusion of organs TYPE 2 DM : on Insulin gtt pharmacy following for glycemic management LACTIC ACIDOSIS : resolved Lactic acid 1.2 -after adequate tissue perfusion establish with Hypothermic protocol /pressors lactic acid was > 2 , with out any evidence of infection or sepsis due to Cardiogenic shock /organ /tissue hypoperfusion Supportive care provided with IV pressors /Hypothermic protocol DVT PROPHYLAXIS Eliquis DNR /DNI DISPOSITION remains critically ill in ICU Vital Signs: Date Time Temp Pulse Resp B/P (MAP) Pulse Ox O2 Delivery O2 Flow Rate FiO2 02/24/17 21:21 40 02/24/17 18:00 36.7 92 26 103/54 (70) 97 Mechanical Ventilator 40 02/24/17 17:53 40 02/24/17 15:30 40 02/24/17 15:30 Mechanical Ventilator 40 02/24/17 15:30 36.7 92 24 109/63 (78) 97 Mechanical Ventilator 40 02/24/17 14:35 40 02/24/17 13:45 84 22 97 02/24/17 13:31 85 22 94/58 (70) 97 02/24/17 13:30 85 22 98 02/24/17 13:16 85 22 95/60 (72) 96 02/24/17 13:15 82 22 96 02/24/17 13:01 80 22 91/54 (66) 96 02/24/17 13:00 79 22 96 02/24/17 12:46 78 22 88/56 (67) 96 02/24/17 12:45 75 22 96 02/24/17 12:31 71 22 92/60 (71) 95 02/24/17 12:30 79 22 95 02/24/17 12:16 80 22 122/68 (86) 95 02/24/17 12:15 78 22 95 02/24/17 12:01 83 22 95/59 (71) 97 02/24/17 12:00 79 22 98 02/24/17 11:46 82 22 98/56 (70) 97 02/24/17 11:45 82 22 97 02/24/17 11:31 79 22 94/60 (71) 97 02/24/17 11:30 78 22 97 02/24/17 11:30 36.8 81 22 94/60 (71) 97 Mechanical Ventilator 40 02/24/17 11:29 97 Mechanical Ventilator 40 02/24/17 11:29 40 02/24/17 11:10 40 02/24/17 10:31 84 22 104/64 (77) 97 02/24/17 10:30 84 23 97 12/18/17 10:15 84 22 100/47 (64) 97 02/24/17 10:01 84 22 102/51 (68) 98 02/24/17 10:00 88 22 101/52 (68) 98 02/24/17 09:45 82 22 98/50 (66) 97 02/24/17 09:30 86 22 102/50 (67) 97 02/24/17 09:30 36.6 86 22 111/72 (85) 97 Mechanical Ventilator 40 02/24/17 09:15 83 22 104/51 (68) 97 02/24/17 09:01 85 22 105/51 (69) 97 02/24/17 09:00 83 22 107/51 (69) 97 02/24/17 08:45 87 22 104/53 (70) 97 02/24/17 08:30 91 22 104/55 (71) 96 02/24/17 08:15 80 22 95/49 (64) 98 02/24/17 08:00 84 22 94/50 (65) 97 02/24/17 07:45 86 22 100/50 (67) 97 02/24/17 07:31 40 02/24/17 07:30 97 Mechanical Ventilator 40 02/24/17 07:30 90 22 102/50 (67) 97 02/24/17 07:30 37.0 89 22 98/51 (67) 98 Mechanical Ventilator 40 105/61 (76) 02/24/17 07:30 40 02/24/17 07:15 91 22 64/59 (61) 97 02/24/17 07:01 89 22 80/49 (59) 97 Mechanical Ventilator 40 02/24/17 07:01 89 22 80/49 (59) 97 02/24/17 07:00 88 22 80/49 (59) 96 02/24/17 07:00 88 22 80/49 (59) 96 Mechanical Ventilator 40 02/24/17 05:50 40 02/24/17 05:01 89 22 104/45 (64) 96 Mechanical Ventilator 40 02/24/17 05:00 87 22 99/44 (62) 95 Mechanical Ventilator 40 02/24/17 04:57 40 02/24/17 04:57 97 Mechanical Ventilator 40 02/24/17 04:40 90 22 105/48 (67) 94 Mechanical Ventilator 40 02/24/17 04:00 36.4 85 22 107/48 (67) 98 Mechanical Ventilator 40 02/24/17 03:00 83 22 100/46 (64) 97 Mechanical Ventilator 40 02/24/17 02:22 40 02/24/17 02:00 84 22 101/46 (64) 97 Mechanical Ventilator 40 02/24/17 01:00 91 22 103/49 (67) 96 Mechanical Ventilator 40 02/24/17 00:05 40 02/24/17 00:05 97 Mechanical Ventilator 40 02/24/17 00:01 87 22 99/46 (63) 96 Mechanical Ventilator 40 02/24/17 00:00 87 22 98/46 (63) 96 Mechanical Ventilator 40 02/23/17 23:21 40 02/23/17 23:01 84 22 103/47 (65) 97 Mechanical Ventilator 40 02/23/17 23:00 83 22 99/46 (63) 97 Mechanical Ventilator 40 Lab Results: Results Past 24 Hours Test 02/24/17 00:53 02/24/17 05:09 02/24/17 11:00 02/24/17 11:09 Range/Units Bedside Glucose (other) 115 117 70-99 mg/dl White Blood Count 9.25 4.8-10.8 K/uL Red Blood Count 3.85 4.7-6.1 M/uL Hemoglobin 12.4 14.0-18.0 g/dL Hematocrit 37.6 42-52 % Mean Corpuscular Volume 97.7 80-100 fL Mean Corpuscular Hemoglobin 32.2 25-34 pg Mean Corpuscular Hemoglobin Concent 33.0 32-36 g/dl Platelet Count 137 130-400 K/uL Mean Platelet Volume 11.5 7.4-10.4 fL Neutrophils (%) (Auto) 73.3 % Lymphocytes (%) (Auto) 13.0 % Monocytes (%) (Auto) 8.9 % Eosinophils (%) (Auto) 2.7 % Basophils (%) (Auto) 0.2 % Neutrophils # (Auto) 6.78 1.4-6.5 K/uL Lymphocytes # (Auto) 1.20 1.2-3.4 K/uL Monocytes # (Auto) 0.82 0.11-0.59 K/uL Eosinophils # (Auto) 0.25 0-0.5 K/uL Basophils # (Auto) 0.02 0-0.2 K/uL RDW Standard Deviation 57.4 36.4-46.3 fL RDW Coefficient of Variation 16.1 11.5-14.5 % Immature Granulocyte % (Auto) 1.9 % Immature Granulocyte # (Auto) 0.18 0.00-0.02 K/uL Sodium Level 141 136-145 mmol/L Potassium Level 3.8 3.5-5.1 mmol/L Chloride Level 108 98-107 mmol/L Carbon Dioxide Level 30 21-32 mmol/L Anion Gap 3.0 3-11 mmol/L Blood Urea Nitrogen 46 7-18 mg/dl Creatinine 1.07 0.60-1.40 mg/dl Est Creatinine Clear Calc Drug Dose 66.2 ml/min Estimated GFR () 78.8 Estimated GFR (Non- 68.0 BUN/Creatinine Ratio 43.4 10-20 Random Glucose 120 70-99 mg/dl Calcium Level 8.7 8.5-10.1 mg/dl Vancomycin Level Trough 10.3 SEE COMMENT mcg/ml Test 02/24/17 16:19 02/24/17 16:41 Range/Units Venous Blood pH 7.34 7.36-7.41 Venous Blood Partial Pressure CO2 59 38.0-50.0 mmHg Venous Blood Partial Pressure O2 45 mmHg Venous Blood HCO3 31 mmol/L Venous Blood Oxygen Saturation 77.3 % Venous Blood Base Excess 4.0 mEq/L Random Cortisol 40.56 mcg/dl Bedside Glucose 71 70-99 mg/dl
[2017-02-25] VITALS (17 sets, daily range): BP systolic 89–111; BP diastolic 53–61; PULSE 85–100; TEMP 37.1–37.5; O2SAT 92–97
[2017-02-25] MEDS ORDERED: VANCOMYCIN INJ 1,250 MG in SODIUM CHLORIDE 0.9% 250ML 250 ML IV SCH ×2
[2017-02-25] MEDS: INSULIN ASPART 100 UNITS/ML 3 ML PEN SC SCH ×4 (00:23→19:17)
--- NOTE | 2017-02-25 03:01 | Critical Care Progress Note ---
Critical Care Progress Note Date of Service Feb 24, 2017. ICU Day ICU Day Number: [address] Haque Subjective Patient alert following complex commands. When discussing possible tracheostomy if he is unable to liberate from the ventilator he shakes his head yes that he would want to proceed with temporary tracheostomy Objective remains vented , sedated, under TTM. The patient completed his TTM, he started on a warming process, blood pressure dropped slightly requiring increasing dose of dopamine and adding Levophed. EEG did not reveal seizure activity in the past 24 hours. Urine output has been adequate. Subcutaneous emphysema on the right side has been stable. No air leak from the chest tube. His physical exam today revealed was sedated gentleman currently does not appear to be in any respiratory distress, his vital signs remained stable. Heart examination S1-S2 regular rate and rhythm. Mild bradycardia. Lungs with distant crackles right greater than left due to subcutaneous emphysema. Chest tube site appears to be clean. Abdomen is benign with subcutaneous emphysema trace edema in the periphery. Neurologic he is difficult to assess. Pupils are remains reactive. On 02/19/2017, the patient continued to be intubated. We were able to wean his sedation to off. Minimal leak from the chest tube was noted and likely related to defect in the tubing. Subcutaneous emphysema has been stable. On 02/20/2017, the patient remains intubated, moving mildly, does not have any purposeful movement or following commands, remains sedated although he has been off sedatives for at least 48 hours. His heart examination S1-S2 regular rate and rhythm, subcutaneous emphysema protruding good auscultation of the chest, abdomen is benign, trace edema in the periphery. Neurologically is difficult to assess. On 02/21/2017, the patient is intubated, not sedated, nonpurposeful movement noted, vital signs remained stable, the patient is off pressors, no JVP, subcutaneous emphysema has been stable, S1-S2 regular rate and rhythm, lungs were distant crackles likely from subcutaneous emphysema. Abdomen is benign no edema. Neurologically difficult to assess. On 02/22/2017, the patient physical exam has been stable, his O2 saturation has been variable around 93% mainly on 30%. Still have crepitus on the right side of the chest but has not expanded or gotten worse. S1-S2 regular rate and rhythm. Abdomen is benign edema in the periphery noted. Minimal air leak from the chest tube. Neurologically he is improving but still not able to breathe on his own. His neurologic exam definitely has improved the patient minimally opening his eyes but he could not make any eye contact. 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 The rest of his neurologic exam was difficult to assess. On 02/23/2017, the patient remains stable, his respiratory rate is variable depending on the ventilator mode, he had positive JVP, also saturation 94% on 40 %, heart examination S1-S2 regular rate and rhythm, lungs with crackles at the bases, subcutaneous emphysema is resolving on the right side, abdomen is benign , still have edema in the periphery, neurologically he is improving and does not appear to be focal. He is still somnolent. Current SOFA Score SOFA Score Response (Comments) Value PaO2/FiO2 (mmHg) < 400 1 Platelets (x10) > 150 0 Bilirubin (mg/dL) 1.2 - 1.9 1 Mary Coma Score 15 0 Level of Hypotension Dopamine > 5 mcq or Epi < 0.1 mcq 3 Creatinine (mg/dL) < 1.2 0 Total 5 Assessment & Plan Reason Critically Ill: Respiratory failure following cardiac arrest PLAN: Neuro: Neurology following * No evidence of profound hypoxic event Resp: COPD Hypercarbic hypoxic respiratory failure * Patient no longer apneic * Tolerating pressure support ventilation will continue to wean from pressure support CV: V. fib V. tach arrest Still requiring dopamine On systemic anticoagulation secondary to low EF Fluids/Renal: A KI improved, goal to make 1 L negative ID: Discontinue antibiotics secondary to being afebrile and normal respiratory cultures GI/Nutrition: Tolerating tube feeds, given difficulty elaborating from vent will decrease goal from 80-60 for possible overfeeding syndrome Heme: Systemic anticoagulation secondary to low EF Endocrine: Check random cortisol given recurrent hypotension An extensive discussion with the patient's family regarding his respiratory failure. Advised them he is made some improvement in the last 48 hours. We will attempt to continue to wean from pressure support. Advised them patient may require tracheostomy for continued ventilator weaning. I have personally spent 45 minutes of critical care time in the direct management of this patient. This is a life/limb threatening event. This includes time spent evaluating patient, direct bedside care, chart review, placing orders, interpretation of diagnostic studies, discussion with consultants, patient, and family members, as well as other required patient management activities. This time is exclusive of all separately billable procedures, and teaching time and separate from and in addition to any other critical care service time. Consults & Procedures Consultants: cardiology Procedures: as previous. Data Medications: Current Inpatient Medications Medications (Trade) Dose Ordered Sig/Shakira Route Start Time Stop Time Status Last Admin Dose Admin Ondansetron HCl (Zofran Inj) 4 mg Q6H PRN IV 02/17/17 02:30 03/19/17 02:29 Artificial Tears (Lacri-Lube Oph Oint) 1 appln Q2H PRN OPB 02/17/17 03:15 03/19/17 03:14 Famotidine 20 mg/ Syringe 5 ml @ 2.5 mls/min Q12H IV 02/17/17 06:00 03/19/17 05:59 02/24/17 18:00 2.5 MLS/MIN Glucose (Glucose 40% Gel) 15-30 GRAMS 15 GRAMS... UD PRN PO 02/17/17 05:15 03/19/17 05:14 Glucose (Glucose Chew Tab) 4-8 Tablets 4 Tabl... UD PRN PO 02/17/17 05:15 03/19/17 05:14 Dextrose (Dextrose 50% 50ML Syringe) 25-50ML OF 50% DW IV FOR... UD PRN IV 02/17/17 05:15 03/19/17 05:14 02/17/17 23:17 25 ML Glucagon (Glucagon Inj) 1 mg UD PRN SQ 02/17/17 05:15 03/19/17 05:14 Ipratropium [place] (Atrovent Hfa Inhaler) 4 puffs QIDR INH 02/17/17 08:00 03/19/17 07:59 02/24/17 20:30 4 PUFFS Albuterol (Ventolin Hfa Inhaler) 4 puffs QIDR INH 02/17/17 08:00 03/19/17 07:59 02/24/17 20:30 4 PUFFS Dopamine HCl/ Dextrose 250 ml @ 0 mls/hr Q0M PRN IV 02/17/17 16:13 03/19/17 16:12 02/24/17 03:11 17.1 MLS/HR Heparin Sodium (Porcine) (Heparin 10 Unit/ ml 5 ml Flush) 5 ml PRN PRN FLUSH 02/18/17 00:15 03/20/17 00:14 Enteral Nutritional Formula (Impact 1.0 Shyam) 1,000 ml UD OG 02/20/17 09:30 03/22/17 09:29 02/24/17 10:04 1,000 ML Docusate Sodium (coLACE SYRUP) 100 mg BID PO 02/20/17 21:00 03/22/17 20:59 Future Hold 02/24/17 08:23 100 MG Polyethylene (Miralax Powder Packet) 17 gm DAILY PO 02/21/17 09:00 03/23/17 08:59 02/24/17 08:23 17 GM Lactulose (Chronulac Syrup) 30 gm Q6H PO 02/21/17 09:00 03/23/17 08:59 Future Hold 02/24/17 08:23 30 GM Amiodarone HCl (Cordarone Tab) 200 mg BID PO 02/21/17 21:00 03/23/17 20:59 02/24/17 22:20 200 MG Apixaban (Eliquis Tab) 5 mg BID PO 02/21/17 16:00 03/23/17 15:59 Future hold 02/24/17 22:20 5 MG Gadobutrol (Gadavist) 7 mmol UD PRN IV 02/21/17 18:15 02/25/17 18:14 Acetaminophen (Tylenol Soln) 650 mg Q4H PRN PO 02/22/17 10:00 03/24/17 09:59 02/23/17 08:07 650 MG Hydromorphone HCl (Dilaudid Inj) 1 mg Q4 PRN IV 02/22/17 14:00 03/08/17 13:59 02/23/17 18:23 1 MG Miscellaneous Information (Consult Glycemic Management Pharmacy) 1 ea UD PRN N/A 02/22/17 15:30 03/24/17 15:29 Insulin Glargine (Lantus Solostar Pen) SEE PROTOCOL Q12H SC 02/23/17 18:00 03/25/17 17:59 02/24/17 18:10 16 UNITS Insulin Aspart (novoLOG ASPART) SLIDING SCALE Q6H SC 02/23/17 18:00 1/16/18 17:59 02/25/17 00:23 7 UNITS Fentanyl Citrate 250 ml @ 0 mls/hr Q0M PRN IV 02/23/17 23:45 03/09/17 23:44 02/24/17 22:25 5 MLS/HR Vital Signs: Date Time Temp Pulse Resp B/P (MAP) Pulse Ox O2 Delivery O2 Flow Rate FiO2 02/25/17 02:21 40 02/25/17 02:00 87 22 111/60 (77) 97 Mechanical Ventilator 40 02/25/17 00:01 37.1 85 20 102/61 (75) 97 Mechanical Ventilator 40 02/24/17 23:59 40 02/24/17 23:59 97 Mechanical Ventilator 40 02/24/17 23:28 40 02/24/17 22:31 86 108/64 (79) 97 Mechanical Ventilator 40 02/24/17 22:00 84 18 94/54 (67) 97 Mechanical Ventilator 40 02/24/17 21:31 87 20 100/60 (73) 97 Mechanical Ventilator 40 02/24/17 21:21 40 02/24/17 21:01 88 19 96/53 (67) 97 Mechanical Ventilator 40 02/24/17 20:31 86 19 95/54 (68) 97 Mechanical Ventilator 40 02/24/17 20:00 Mechanical Ventilator 40 02/24/17 20:00 40 02/24/17 20:00 36.9 92 26 101/68 (79) 98 Mechanical Ventilator 40 02/24/17 18:00 36.7 92 26 103/54 (70) 97 Mechanical Ventilator 40 02/24/17 17:53 40 02/24/17 15:30 40 02/24/17 15:30 Mechanical Ventilator 40 02/24/17 15:30 36.7 92 24 109/63 (78) 97 Mechanical Ventilator 40 02/24/17 14:35 40 02/24/17 13:45 84 22 97 02/24/17 13:31 85 22 94/58 (70) 97 02/24/17 13:30 85 22 98 02/24/17 13:16 85 22 95/60 (72) 96 02/24/17 13:15 82 22 96 02/24/17 13:01 80 22 91/54 (66) 96 02/24/17 13:00 79 22 96 02/24/17 12:46 78 22 88/56 (67) 96 18/17 12:45 75 22 96 18/17 12:31 71 22 92/60 (71) 95 18/17 12:30 79 22 95 18/17 12:16 80 22 122/68 (86) 95 18/17 12:15 78 22 95 18/17 12:01 83 22 95/59 (71) 97 02/24/17 12:00 79 22 98 18/17 11:46 82 22 98/56 (70) 97 18/17 11:45 82 22 97 18/17 11:31 79 22 94/60 (71) 97 18/17 11:30 78 22 97 18/17 11:30 36.8 81 22 94/60 (71) 97 Mechanical Ventilator 40 02/24/17 11:29 97 Mechanical Ventilator 40 02/24/17 11:29 40 17 11:10 40 02/24/17 10:31 84 22 104/64 (77) 97 02/24/17 10:30 84 23 97 17 10:15 84 22 100/47 (64) 97 02/24/17 10:01 84 22 102/51 (68) 98 17 10:00 88 22 101/52 (68) 98 17 09:45 82 22 98/50 (66) 97 17 09:30 86 22 102/50 (67) 97 02/24/17 09:30 36.6 86 22 111/72 (85) 97 Mechanical Ventilator 40 02/24/17 09:15 83 22 104/51 (68) 97 17 09:01 85 22 105/51 (69) 97 02/24/17 09:00 83 22 107/51 (69) 97 02/24/17 08:45 87 22 104/53 (70) 97 02/24/17 08:30 91 22 104/55 (71) 96 02/24/17 08:15 80 22 95/49 (64) 98 17 08:00 84 22 94/50 (65) 97 02/24/17 07:45 86 22 100/50 (67) 97 02/24/17 07:31 40 12/18/17 07:30 97 Mechanical Ventilator 40 02/24/17 07:30 90 22 102/50 (67) 97 02/24/17 07:30 37.0 89 22 98/51 (67) 98 Mechanical Ventilator 40 105/61 (76) 02/24/17 07:30 40 02/24/17 07:15 91 22 64/59 (61) 97 02/24/17 07:01 89 22 80/49 (59) 97 Mechanical Ventilator 40 02/24/17 07:01 89 22 80/49 (59) 97 02/24/17 07:00 88 22 80/49 (59) 96 02/24/17 07:00 88 22 80/49 (59) 96 Mechanical Ventilator 40 02/24/17 05:50 40 02/24/17 05:01 89 22 104/45 (64) 96 Mechanical Ventilator 40 02/24/17 05:00 87 22 99/44 (62) 95 Mechanical Ventilator 40 02/24/17 04:57 40 02/24/17 04:57 97 Mechanical Ventilator 40 02/24/17 04:40 90 22 105/48 (67) 94 Mechanical Ventilator 40 02/24/17 04:00 36.4 85 22 107/48 (67) 98 Mechanical Ventilator 40 02/24/17 03:00 83 22 100/46 (64) 97 Mechanical Ventilator 40 Laboratory Results: Last 24 Hours Test 02/24/17 05:09 02/24/17 11:00 02/24/17 11:09 02/24/17 16:19 White Blood Count 9.25 K/uL Red Blood Count 3.85 M/uL Hemoglobin 12.4 g/dL Hematocrit 37.6 % Mean Corpuscular Volume 97.7 fL Mean Corpuscular Hemoglobin 32.2 pg Mean Corpuscular Hemoglobin Concent 33.0 g/dl Platelet Count 137 K/uL Mean Platelet Volume 11.5 fL Neutrophils (%) (Auto) 73.3 % Lymphocytes (%) (Auto) 13.0 % Monocytes (%) (Auto) 8.9 % Eosinophils (%) (Auto) 2.7 % Basophils (%) (Auto) 0.2 % Neutrophils # (Auto) 6.78 K/uL Lymphocytes # (Auto) 1.20 K/uL Monocytes # (Auto) 0.82 K/uL Eosinophils # (Auto) 0.25 K/uL Basophils # (Auto) 0.02 K/uL RDW Standard Deviation 57.4 fL RDW Coefficient of Variation 16.1 % Immature Granulocyte % (Auto) 1.9 % Immature Granulocyte # (Auto) 0.18 K/uL Sodium Level 141 mmol/L Potassium Level 3.8 mmol/L Chloride Level 108 mmol/L Carbon Dioxide Level 30 mmol/L Anion Gap 3.0 mmol/L Blood Urea Nitrogen 46 mg/dl Creatinine 1.07 mg/dl Est Creatinine Clear Calc Drug Dose 66.2 ml/min Estimated GFR () 78.8 Estimated GFR (Non- 68.0 BUN/Creatinine Ratio 43.4 Random Glucose 120 mg/dl Calcium Level 8.7 mg/dl Vancomycin Level Trough 10.3 mcg/ml Bedside Glucose (other) 117 mg/dl Venous Blood pH 7.34 Venous Blood Partial Pressure CO2 59 mmHg Venous Blood Partial Pressure O2 45 mmHg Venous Blood HCO3 31 mmol/L Venous Blood Oxygen Saturation 77.3 % Venous Blood Base Excess 4.0 mEq/L Random Cortisol 40.56 mcg/dl Test 02/24/17 16:41 02/25/17 00:03 Bedside Glucose 71 mg/dl 130 mg/dl
[2017-02-25] MEDS: IMPACT LIQ 1000 ML BAG OG SCH ×2 (03:38→19:26)
[2017-02-25 05:11] LABS: BASO % 0.1 %; BASO ABS # 0.01 K/uL (0-0.2); EOS % 1.1 %; HEMATOCRIT 36.8 % (42-52); HEMOGLOBIN 12.2 g/dL (14.0-18.0); IG# 0.12 K/uL (0.00-0.02); LYMPH % 12.6 %; LYMPH ABS # 1.14 K/uL (1.2-3.4); MEAN CELL VOLUME 100.3 fL (80-100); MEAN CORPUSCULAR HEMOGLOBIN 33.2 pg (25-34); MEAN CORPUSCULAR HGB CONC 33.2 g/dl (32-36); MEAN PLATELET VOLUME 11.9 fL (7.4-10.4); MONO % 7.6 %; MONO ABS # 0.69 K/uL (0.11-0.59); NEUT % 77.3 %; PLATELET COUNT 179 K/uL (130-400); RED CELL DISTRIBUTION WIDTH CV 16.5 % (11.5-14.5); RED CELL DISTRIBUTION WIDTH SD 60.3 fL (36.4-46.3); WHITE BLOOD COUNT 9.06 K/uL (4.8-10.8)
[2017-02-25 05:32] LABS: CALCIUM 8.7 mg/dl (8.5-10.1); CREATININE 1.07 mg/dl (0.60-1.40); PHOSPHORUS 3.9 mg/dl (2.5-4.9); POTASSIUM 4.4 mmol/L (3.5-5.1)
[2017-02-25] MEDS: INSULIN GLARGINE SOLOSTAR 100 UNITS/ML 3 ML PEN SC SCH ×2 (05:33→19:39)
[2017-02-25] MEDS ORDERED: FUROSEMIDE INJ 40 MG in SYRINGE 0 ML IV ONE (05:45)
[2017-02-25] MEDS: FAMOTIDINE IV INJ 20 MG in SYRINGE 3 ML IV SCH ×2 (06:11→19:15)
--- NOTE | 2017-02-25 07:34 | DIAGNOSTIC IMAGING REPORT ---
CHEST ONE VIEW PORTABLE CLINICAL HISTORY: Respiratory failure COMPARISON STUDY: 02/24/2017 FINDINGS: The heart remains enlarged. There are small bilateral pleural effusions. There is mild pulmonary vessel congestion. There is no change the position of the right-sided pleural catheter. There is subcutaneous emphysema on the right. There is persistent left lower lobe atelectasis/consolidation. There is a nasogastric tube which passes in the stomach. There is a right internal jugular central venous catheter which projects over the superior vena cava. There is an endotracheal tube positioned 4.6 cm above the mickie.[ IMPRESSION: 1. No significant change in the position of the lines and tubes 2. Persistent left lower lobe atelectasis/consolidation 3. Small pleural effusions 4. Improving right lung interstitial opacities, likely representing improving pulmonary vascular congestion Electronically signed by: Jass Genao M.D. 02/25/2017 7:33 AM Dictated Date/Time: 02/25/2017 7:30 AM
[2017-02-25] MEDS: ALBUTEROL HFA 8 GM INHALER INH SCH ×4 (07:49→19:53)
[2017-02-25] MEDS: IPRATROPIUM BROMIDE HFA INHALER INH SCH ×4 (07:49→19:53)
[2017-02-25] MEDS ORDERED: POTASSIUM CHLORIDE 20 MEQ/15 ML UDC NG ONE (10:00)
[2017-02-25] MEDS ORDERED: FUROSEMIDE 40 MG/4 ML VIAL IV ONE (10:00)
[2017-02-25] MEDS: APIXABAN 2.5 MG TAB PO SCH ×2 (10:34→20:56)
[2017-02-25] MEDS: AMIODARONE 200 MG TAB PO SCH ×2 (10:34→20:56)
[2017-02-25] MEDS: POLYETHYLENE (MIRALAX) 17 GM PACK PO SCH (10:35)
--- NOTE | 2017-02-25 10:41 | Cardiology Follow-Up ---
Subjective Subjective Date of Service: Feb 25, 2017. Pt evaluation today including: conversation w/ patient, conversation w/ family , physical exam, chart review, lab review, review of studies, review of inpatient medication list Additional Details: Pt seen and examined, with brother and nephew at bedside. Pt now fully awake and responding to questions appropriately. Currently on weaning trial with tentative plan for extubation should he pass. Patient shakes his head "no" when asked if he is experiencing chest pain, sob, or palpitations. Tele reviewed: sinus rhythm without arrhythmia or significant ectopy. Problem List Medical Problems: (1) Elevated troponin Status: Acute (2) Pneumothorax on right Status: Acute (3) Pulmonary edema Status: Acute (4) Rib fractures Status: Acute (5) Ventricular tachycardia Status: Acute Objective Vital Signs Last Vital Signs Documentation Date Time Temp Pulse Resp B/P (MAP) Pulse Ox O2 Delivery O2 Flow Rate FiO2 02/25/17 09:04 30 02/25/17 06:00 88 23 106/56 (73) 97 Mechanical Ventilator 02/25/17 04:00 37.1 Physical Exam: General Appearance: WD/WN, no apparent distress, + pertinent finding ( intubated on vent) Eyes: bilateral eyes normal inspection, bilateral eyes PERRL, bilateral eyes EOMI ENT: normal ENT inspection, hearing grossly normal Neck: supple, no adenopathy, thyroid normal, no JVD, no carotid bruits, trachea midline Respiratory/Chest: normal breath sounds, no respiratory distress, no accessory muscle use Cardiovascular: regular rate, rhythm (regular but distant, unable to appreciate murmurs, rubs or gallops) Abdomen: normal bowel sounds, soft, no organomegaly, no pulsatile mass Extremities: normal inspection, no pedal edema, no calf tenderness Neurologic/Psychiatric: kindergartners helper II-XII nml as tested, no motor/sensory deficits, alert Skin: normal color, warm/dry, no rash Lymphatic: no adenopathy Assessment and Plan 1. V-tach arrest stable no further arrhythmias on monitor amio changed to po which is appropriate, again no further arrhythmias unable to add beta jeffry given ongoing need for pressure support question remains whether will be candidate for ICD placement from a cardiac standpoint does qualify for BiV ICD placement will discuss with our EP colleagues today
--- NOTE | 2017-02-25 12:51 | Pharmacy Progress Note ---
Glycemic Control Progress Note Date of Service Feb 25, 2017. Scope Glycemic Pharmacist consulted for glycemic control to write orders per [facility] inpatient glycemic control protocol. Objective Accuchecks BSG (last 24hrs): Test 02/24/17 16:41 02/25/17 00:03 02/25/17 04:29 Bedside Glucose 71 mg/dl (70-99) 130 mg/dl (70-99) Random Glucose 89 mg/dl (70-99) HbA1c: Test 02/18/17 04:07 Hemoglobin A1c 6.9 % (4.5-5.6) H Recent Pertinent Medications The patient is currently receiving: * Basal insulin: Lantus 16 units every 12 hours * Correctional Insulin: Novolog Correction per scale Q6H Goal Range: Low 120 mg/dL - High 160 mg/dL Correction Factor: 20 mg/dL/unit * Prandial insulin: 5 units Q6H while on Impact @ 60 mL/hr (~1 unit insulin for every 9 g CHO) Outpatient Anti-Diabetic Meds None Assessment & Plan ASSESSMENT: * 76yo male with hyperglycemia secondary to baseline DM, stress, continuous tube feedings, mechanical ventilation, etc * BSg's ranging 71-130 mg/dL over the last 24 hours - this is lower than goal for ICU patient. Most recent BSG 71 mg/dL @ ~1300 despite Lantus and Novolog being held this AM. This is likely multifactorial including: * Regimen heavily weighted towards basal insulin (60%) * Tubefeeds decreased yesterday and held this AM in anticipation of possible extubation * Will re-check BSG 1 hour after result of 71 mg/dL to ensure Lantus 16 units administered last night does not cause hypoglycemia now that tubefeeds have been held * Will significantly reduce Lantus and only give additional if BSG > 100 mg/dL * Will loosen correction factor and provide CHO ratio (rather than fixed dose insulin to cover CHO in tube feeds) to allow for adjustment of insulin administration depending on tubefeed rate * Would prefer regular insulin for CHO coverage while on continuous tubefeeds, however since patient is not hyperglycemic, OK to continue Novolog for now. May need to either change to Novolog q4h or regular insulin q6h if patient becomes hyperglycemic PLAN FOR INPATIENT GLYCEMIC CONTROL: * Basal insulin - Decrease Lantus. Hold x1 this AM then resume SC q12@06,18 * 0 units for BSG < 100 mg/dL * 5 units for Impact <= 20 mL/hr and BSG >= 100 mg/dL * 10 units for Impact > 20 mL/hr and BSG >= 100 mg/dL * Bolus insulin * NovoLog per scale Q6hrs while NPO * Goal Range: Low 120 mg/dL - High 160 mg/dL * Loosen Correction Factor: 25 mg/dL/unit * Loosen Nutritional / Prandial insulin per carb ratio of 1 unit per 10 grams CHO consumed * Please note that the plan above was derived based on current level of insulin resistance and hospital stress. These recommendations are appropriate for inpatient admission only. Plan of care upon discharge will need to be reassessed to avoid potential outpatient hypo/hyperglycemia. Thank you.
[2017-02-25] MEDS: DEXTROSE 50% 50 ML SYR IV PRN ×2 (13:41→19:21)
--- NOTE | 2017-02-25 14:12 | DIAGNOSTIC IMAGING REPORT ---
CHEST ONE VIEW PORTABLE CLINICAL HISTORY: 76 years-old Male presenting with Right pig tail and pneumo follow up. TECHNIQUE: Portable upright AP view of the chest was obtained. COMPARISON: 02/25/2017 at 7:21 AM. FINDINGS: The right pigtail pleural catheter remains positioned with its terminus in the lateral right mid hemithorax. Endotracheal tube over 4 cm from the mickie. Nasogastric tube descends below the diaphragm. Extensive subcutaneous emphysema along the right lateral and anterior chest wall. Atherosclerosis of aortic arch. Prominence of the cardiac silhouette unchanged. Patchy reticular opacities at the lung bases with obscuration of the left hemidiaphragm. Trace pleural effusions may be present. No gross evidence of a pneumothorax. Degenerative changes of the thoracic spine. Upper abdomen normal. IMPRESSION: 1. Tubes unchanged in position. 2. Small bilateral pleural effusions with bilateral, left greater than right, atelectasis suspected. Electronically signed by: Andrea Rice M.D. 02/25/2017 2:11 PM Dictated Date/Time: 02/25/2017 2:09 PM
[2017-02-25] MEDS ORDERED: INSULIN GLARGINE SOLOSTAR 100 UNITS/ML 3 ML PEN SC SCH (18:00)
--- NOTE | 2017-02-25 19:21 | Progress Note ---
Subjective Date of Service: Feb 25, 2017. Subjective Pt evaluation today including: conversation w/ patient, conversation w/ family , physical exam, lab review, review of studies, conversation w/ health and wellness sales consultant, review of inpatient medication list Patient is intubated, I saw him in room 110 with family at bedside He is awake, alert - he converses with paper Requiring less ventilation as per cardiac cath lab radiology technologist No other issues to note Problem List Medical Problems: (1) Elevated troponin Status: Acute (2) Pneumothorax on right Status: Acute (3) Pulmonary edema Status: Acute (4) Rib fractures Status: Acute (5) Ventricular tachycardia Status: Acute Review of Systems Difficult to obtain due to intubation Medications Current Inpatient Medications Medications (Trade) Dose Ordered Sig/Shakira Route Start Time Stop Time Status Last Admin Dose Admin Ondansetron HCl (Zofran Inj) 4 mg Q6H PRN IV 02/17/17 02:30 03/19/17 02:29 Artificial Tears (Lacri-Lube Oph Oint) 1 appln Q2H PRN OPB 02/17/17 03:15 03/19/17 03:14 Famotidine 20 mg/ Syringe 5 ml @ 2.5 mls/min Q12H IV 02/17/17 06:00 03/19/17 05:59 02/25/17 06:11 2.5 MLS/MIN Glucose (Glucose 40% Gel) 15-30 GRAMS 15 GRAMS... UD PRN PO 02/17/17 05:15 03/19/17 05:14 Glucose (Glucose Chew Tab) 4-8 Tablets 4 Tabl... UD PRN PO 02/17/17 05:15 03/19/17 05:14 Dextrose (Dextrose 50% 50ML Syringe) 25-50ML OF 50% DW IV FOR... UD PRN IV 02/17/17 05:15 03/19/17 05:14 02/25/17 13:41 25 ML Glucagon (Glucagon Inj) 1 mg UD PRN SQ 02/17/17 05:15 03/19/17 05:14 Ipratropium [place] (Atrovent Hfa Inhaler) 4 puffs QIDR INH 02/17/17 08:00 03/19/17 07:59 02/25/17 14:50 4 PUFFS Albuterol (Ventolin Hfa Inhaler) 4 puffs QIDR INH 02/17/17 08:00 03/19/17 07:59 02/25/17 14:50 4 PUFFS Dopamine HCl/ Dextrose 250 ml @ 0 mls/hr Q0M PRN IV 02/17/17 16:13 03/19/17 16:12 02/24/17 03:11 17.1 MLS/HR Heparin Sodium (Porcine) (Heparin 10 Unit/ ml 5 ml Flush) 5 ml PRN PRN FLUSH 02/18/17 00:15 03/20/17 00:14 Enteral Nutritional Formula (Impact 1.0 Shyam) 1,000 ml UD OG 02/20/17 09:30 03/22/17 09:29 02/25/17 03:38 1,000 ML Docusate Sodium (coLACE SYRUP) 100 mg BID PO 02/20/17 21:00 03/22/17 20:59 Future Hold 02/24/17 08:23 100 MG Polyethylene (Miralax Powder Packet) 17 gm DAILY PO 02/21/17 09:00 03/23/17 08:59 02/25/17 10:35 17 GM Lactulose (Chronulac Syrup) 30 gm Q6H PO 02/21/17 09:00 03/23/17 08:59 Future Hold 02/24/17 08:23 30 GM Amiodarone HCl (Cordarone Tab) 200 mg BID PO 02/21/17 21:00 03/23/17 20:59 02/25/17 10:34 200 MG Apixaban (Eliquis Tab) 5 mg BID PO 02/21/17 16:00 03/23/17 15:59 Future hold 02/25/17 10:34 5 MG Acetaminophen (Tylenol Soln) 650 mg Q4H PRN PO 02/22/17 10:00 03/24/17 09:59 02/23/17 08:07 650 MG Hydromorphone HCl (Dilaudid Inj) 1 mg Q4 PRN IV 02/22/17 14:00 03/08/17 13:59 02/23/17 18:23 1 MG Miscellaneous Information (Consult Glycemic Management Pharmacy) 1 ea UD PRN N/A 02/22/17 15:30 03/24/17 15:29 Insulin Aspart (novoLOG ASPART) SLIDING SCALE Q6H SC 02/23/17 18:00 03/25/17 17:59 02/25/17 00:23 7 UNITS Fentanyl Citrate 250 ml @ 0 mls/hr Q0M PRN IV 02/23/17 23:45 03/09/17 23:44 02/24/17 22:25 5 MLS/HR Furosemide 40 mg/ Syringe 4 ml @ 4 mls/min BID IV 02/25/17 21:00 03/27/17 20:59 Insulin Glargine (Lantus Solostar Pen) Q12H SC 02/25/17 18:00 03/27/17 17:59 Objective Vital Signs Date Time Temp Pulse Resp B/P (MAP) Pulse Ox O2 Delivery O2 Flow Rate FiO2 02/25/17 17:41 30 02/25/17 16:30 89 94 02/25/17 16:15 93 CPAP 30 Mechanical Ventilator 02/25/17 16:15 30 02/25/17 16:01 37.5 94 23 98/54 (69) 93 CPAP 30 Mechanical Ventilator 02/25/17 16:00 95 27 95 02/25/17 15:30 92 23 95 02/25/17 15:01 85 25 99/55 (70) 94 02/25/17 15:00 86 24 94 02/25/17 14:50 30 02/25/17 14:21 37.4 95 26 101/58 (72) 94 CPAP 30 Mechanical Ventilator 02/25/17 14:09 30 02/25/17 12:00 99 24 107/59 (75) 94 CPAP 30 Mechanical Ventilator 02/25/17 12:00 CPAP 30 Mechanical Ventilator 02/25/17 12:00 30 02/25/17 11:04 30 02/25/17 10:00 91 24 89/55 (66) 94 Mechanical Ventilator 30 02/25/17 09:04 30 02/25/17 08:55 30 02/25/17 08:00 96 24 110/53 (72) 96 Mechanical Ventilator 30 02/25/17 08:00 30 02/25/17 08:00 Mechanical Ventilator 30 02/25/17 07:49 30 02/25/17 06:22 40 02/25/17 06:00 88 23 106/56 (73) 97 Mechanical Ventilator 40 02/25/17 04:00 96 Mechanical Ventilator 40 02/25/17 04:00 40 02/25/17 04:00 37.1 89 23 106/61 (76) 96 Mechanical Ventilator 40 02/25/17 02:21 40 02/25/17 02:00 87 22 111/60 (77) 97 Mechanical Ventilator 40 02/25/17 00:01 37.1 85 20 102/61 (75) 97 Mechanical Ventilator 40 02/24/17 23:59 40 02/24/17 23:59 97 Mechanical Ventilator 40 02/24/17 23:28 40 02/24/17 22:31 86 108/64 (79) 97 Mechanical Ventilator 40 02/24/17 22:00 84 18 94/54 (67) 97 Mechanical Ventilator 40 02/24/17 21:31 87 20 100/60 (73) 97 Mechanical Ventilator 40 02/24/17 21:21 40 02/24/17 21:01 88 19 96/53 (67) 97 Mechanical Ventilator 40 02/24/17 20:31 86 19 95/54 (68) 97 Mechanical Ventilator 40 02/24/17 20:00 Mechanical Ventilator 40 02/24/17 20:00 40 02/24/17 20:00 36.9 92 26 101/68 (79) 98 Mechanical Ventilator 40 Physical Exam General Appearance: no apparent distress Respiratory/Chest: chest non-tender, lungs clear, normal breath sounds, no respiratory distress, no accessory muscle use Cardiovascular: regular rate, rhythm, no edema, no murmur Extremities: normal inspection, no pedal edema Laboratory Results Last 24 Hours Test 02/25/17 00:03 02/25/17 04:29 02/25/17 06:13 Bedside Glucose 130 mg/dl White Blood Count 9.06 K/uL Red Blood Count 3.67 M/uL Hemoglobin 12.2 g/dL Hematocrit 36.8 % Mean Corpuscular Volume 100.3 fL Mean Corpuscular Hemoglobin 33.2 pg Mean Corpuscular Hemoglobin Concent 33.2 g/dl Platelet Count 179 K/uL Mean Platelet Volume 11.9 fL Neutrophils (%) (Auto) 77.3 % Lymphocytes (%) (Auto) 12.6 % Monocytes (%) (Auto) 7.6 % Eosinophils (%) (Auto) 1.1 % Basophils (%) (Auto) 0.1 % Neutrophils # (Auto) 7.00 K/uL Lymphocytes # (Auto) 1.14 K/uL Monocytes # (Auto) 0.69 K/uL Eosinophils # (Auto) 0.10 K/uL Basophils # (Auto) 0.01 K/uL RDW Standard Deviation 60.3 fL RDW Coefficient of Variation 16.5 % Immature Granulocyte % (Auto) 1.3 % Immature Granulocyte # (Auto) 0.12 K/uL Sodium Level 144 mmol/L Potassium Level 4.4 mmol/L Chloride Level 109 mmol/L Carbon Dioxide Level 35 mmol/L Anion Gap 0.0 mmol/L Blood Urea Nitrogen 45 mg/dl Creatinine 1.07 mg/dl Est Creatinine Clear Calc Drug Dose 66.2 ml/min Estimated GFR () 78.8 Estimated GFR (Non- 68.0 BUN/Creatinine Ratio 42.2 Random Glucose 89 mg/dl Calcium Level 8.7 mg/dl Phosphorus Level 3.9 mg/dl Magnesium Level 2.5 mg/dl Blood Gas Sample Site L Radial Bedside Blood Gas pH (LAB) 7.43 Bedside Blood Gas pCO2 (LAB) 55 mmHg Bedside Blood Gas pO2 (LAB) 141 mmHg Bedside Blood Gas HCO3 (LAB) 37 meq/L Bedside Blood Gas Total CO2 39 mEq/l Bedside Blood Gas Base Excess (LAB) 13.0 meq/L Bedside Blood Gas O2 Saturation 99.0 % Ran Test Pass Oxygen Delivery Device Ventilator Bedside FiO2 40 % Blood Gas PEEP 5 Assessment and Plan VTACH CARDIAC ARREST : 02/25 doing well, intubated, but requiring less ventilation as per cardiac cath lab radiology technologist - possible extubation in AM 02/24 on CPAP trial cont daily weaning protocol once extubated , will need to be evaluated for AICD placement Cardiology following 02/23/17 : unable to tolerate CPAP trial cont daily weaning protocol neurologically much improved , awake and alert , following commands 02/22/17: remains intubated , failed CPAP trial today CXray no pneumothorax noted ,satisfactory line placement -rt jugular CVP terminates at the brachiocephalic /SVC junction rt sided pleural catheter unchanged position mild central pulmonary congestion ordered 40 mg IV Lasix by Dr Porras on Amiodarone 200 mg VIA OG tube BID on Dopamine gtt Lopressor not initiated due to hypotensive Cardiology following 02/21/17 : remains intubated , off pressors on Amiodarone 200 mg per G-tube twice a day. IV heparin D/yaima on Eliquis 5 mg BID via G tube appreciate input form Cardiology and Garnisher 02/20 : remains intubated continued CPAP trial 02/19/17 : taken off Hypothermic protocol , Body core temp at normal 37.5 started to wean off sedation ( required large amount of sedation : Fentanyl @ 200 mcq, Versed @ 10mg/h ) cont CPAP trial appreciate input /help from Garnisher rt sided Chest tube remains in air seal converted to sinus rhythm /rate controlled @ 60's , on Amiodarone gtt improved Qtc on IV Heparin gtt on Dobutamine and Levophed gtt if pt able to recover enough to be extubated without neurological deficit will benefit with AICD placement during this hospital cardiology following 02/18/2017: HX of CAD with ischemic cardiomyopathy , 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 developed pneumothorax with extensive Rt sided sub q emphysema due to CPR Cxray shows 02/16/17 : Rt sided pneumothorax with max pleural separation of 1.4 cm s/p rt right chest tube placement while in ICU , cardiac rhythm changed to Afib on amiodarone gtt /IV heparin started due arrhythmia -Afib appreciate input form Cardiology warming process started this morning appreciate help and input form the cardiac cath lab radiology technologist if pt is able to recover with adequate neurological capacity will need AICD placement AFIB : Amiodarone + Eliquis paroxysmal Afib due to cardiogenic shock / hypoxia on Amiodarone 200 mg BID via OG tube Eliquis 5 mg BID via OG tube ACUTE CVA : 02/25 cont. Eliquis for now MRI of brain 02/21/17 Findings concerning for a punctate focus of ischemia at the junction of the right inferior jeannie and medulla. This may represent a small lacunar infarct versus a punctate embolic infarct. No evidence of anoxic brain injury. possible cardiogenic emboli /pt been started on IV heparin since admission -pt is on Eliquis via NG tube neurology following pt is showing good prognosis factor with improve neurological alertness continue weaning protocol from vent will need life long anticoagulation ELEVATED TROPONIN : low LVEF at around 25-30% pt. with v-tach and cardiac arrest on admission due to Vtach cardiac arrest /aggressive CPR doubt due to acute MO /atherothrombotic plaque rupture Kris 0.40-> 10-> 11-> 8.4 ECHO 02/16/17 : thinning and scar of the inferior base, posterior and inferolateral ye. Septal motion is consistent with conduction abnormality. moderate apical wall hypokinesis. inferior wall akinesis. posterior wall akinesis. Ejection Fraction = 25-30%. ECHO unchanged from prior study on 12/2016 Cardiology following closely ROBERTO ON CKD STAGE 3 : resolved , Cr improved 1.06 due to Cardiac arrest /hypoperfusion of organs TYPE 2 DM : on Insulin gtt pharmacy following for glycemic management LACTIC ACIDOSIS : resolved Lactic acid 1.2 -after adequate tissue perfusion establish with Hypothermic protocol /pressors lactic acid was > 2 , with out any evidence of infection or sepsis due to Cardiogenic shock /organ /tissue hypoperfusion Supportive care provided with IV pressors /Hypothermic protocol DVT PROPHYLAXIS Eliquis DNR /DNI DISPOSITION remains critically ill in ICU
--- NOTE | 2017-02-25 20:35 | DIAGNOSTIC IMAGING REPORT ---
CHEST ONE VIEW PORTABLE HISTORY: 76 years-old Male S/P Chest Tube Removal respiratory failure. Status post chest tube removal. COMPARISON: Chest radiograph of same day at 1:53 PM TECHNIQUE: Portable AP view of the chest FINDINGS: Endotracheal tube overlies the midline, 4.7 cm superior to the mickie. Atherosclerosis of the aorta. Cardiac silhouette is mildly enlarged. Mild pulmonary vascular congestion. Persistent hazy bibasilar opacities, left greater than right. Status post removal of right-sided pigtail catheter. No definite pneumothorax identified. Enteric tube courses into the region of the gastric lumen. Persistent large degree of subcutaneous emphysema along the right chest wall. Bones appear grossly intact. IMPRESSION: 1. Status post removal of right-sided pigtail pleural catheter. No pneumothorax. 2. Remaining lines and tubes appear unchanged. 3. Persistent hazy left greater than right bibasilar opacities suggesting atelectasis. The above report was generated using voice recognition software. It may contain grammatical, syntax or spelling errors. Electronically signed by: Wellington Mercado M.D. 02/25/2017 8:34 PM Dictated Date/Time: 02/25/2017 8:31 PM
[2017-02-25] MEDS: FUROSEMIDE INJ 40 MG in SYRINGE 0 ML IV SCH (20:59)
--- NOTE | 2017-02-25 22:18 | Critical Care Progress Note ---
Critical Care Progress Note Date of Service Feb 25, 2017. ICU Day ICU Day Number: [address] Haque Subjective Remains alert and oriented responding appropriately with questions Objective Neuro alert and oriented Cardiovascular S1-S2 Chest: Removed right-sided chest tube today placed occlusive dressing Respiratory distant lung sounds, subcutaneous emphysema improving Abdomen: Soft nondistended nontender Extremities 1+ edema Current SOFA Score SOFA Score Response (Comments) Value PaO2/FiO2 (mmHg) < 400 1 Platelets (x10) > 150 0 Bilirubin (mg/dL) 1.2 - 1.9 1 Dumont Coma Score 15 0 Level of Hypotension No Hypotension 0 Creatinine (mg/dL) < 1.2 0 Total 2 Assessment & Plan Reason Critically Ill: Respiratory failure following cardiac arrest PLAN: Neuro: Neurology following Resp: COPD Wean significantly last 24 hours * Discontinued right chest tube today CV: V. fib V. tach arrest * Anticipate EP consult tomorrow per cardiology On systemic anticoagulation secondary to low EF Fluids/Renal: A KI improved, goal to make 1 L negative ID: Discontinue antibiotics secondary to being afebrile and normal respiratory cultures GI/Nutrition: Tolerating tube feeds, given difficulty elaborating from vent will decrease goal from 80-60 for possible overfeeding syndrome Heme: Systemic anticoagulation secondary to low EF Endocrine: Adequate cortisol response Updated the patient and family. Anticipate extubation tomorrow. Still will be at risk for reintubation given multiple rib fractures and significant COPD I have personally spent 50 minutes of critical care time in the direct management of this patient. This is a life/limb threatening event. This includes time spent evaluating patient, direct bedside care, chart review, placing orders, interpretation of diagnostic studies, discussion with consultants, patient, and family members, as well as other required patient management activities. This time is exclusive of all separately billable procedures, and teaching time and separate from and in addition to any other critical care service time. Consults & Procedures Consultants: cardiology Procedures: as previous. Data Medications: Current Inpatient Medications Medications (Trade) Dose Ordered Sig/Shakira Route Start Time Stop Time Status Last Admin Dose Admin Ondansetron HCl (Zofran Inj) 4 mg Q6H PRN IV 02/17/17 02:30 03/19/17 02:29 Artificial Tears (Lacri-Lube Oph Oint) 1 appln Q2H PRN OPB 02/17/17 03:15 1/10/18 03:14 Famotidine 20 mg/ Syringe 5 ml @ 2.5 mls/min Q12H IV 02/17/17 06:00 03/19/17 05:59 02/25/17 19:15 2.5 MLS/MIN Glucose (Glucose 40% Gel) 15-30 GRAMS 15 GRAMS... UD PRN PO 02/17/17 05:15 03/19/17 05:14 Glucose (Glucose Chew Tab) 4-8 Tablets 4 Tabl... UD PRN PO 02/17/17 05:15 03/19/17 05:14 Dextrose (Dextrose 50% 50ML Syringe) 25-50ML OF 50% DW IV FOR... UD PRN IV 02/17/17 05:15 03/19/17 05:14 02/25/17 19:21 25 ML Glucagon (Glucagon Inj) 1 mg UD PRN SQ 02/17/17 05:15 03/19/17 05:14 Ipratropium [place] (Atrovent Hfa Inhaler) 4 puffs QIDR INH 02/17/17 08:00 03/19/17 07:59 02/25/17 19:53 4 PUFFS Albuterol (Ventolin Hfa Inhaler) 4 puffs QIDR INH 02/17/17 08:00 03/19/17 07:59 02/25/17 19:53 4 PUFFS Dopamine HCl/ Dextrose 250 ml @ 0 mls/hr Q0M PRN IV 02/17/17 16:13 03/19/17 16:12 02/24/17 03:11 17.1 MLS/HR Heparin Sodium (Porcine) (Heparin 10 Unit/ ml 5 ml Flush) 5 ml PRN PRN FLUSH 02/18/17 00:15 03/20/17 00:14 Enteral Nutritional Formula (Impact 1.0 Shyam) 1,000 ml UD OG 02/20/17 09:30 03/22/17 09:29 02/25/17 19:26 1,000 ML Docusate Sodium (coLACE SYRUP) 100 mg BID PO 02/20/17 21:00 03/22/17 20:59 Future Hold 02/24/17 08:23 100 MG Polyethylene (Miralax Powder Packet) 17 gm DAILY PO 02/21/17 09:00 03/23/17 08:59 02/25/17 10:35 17 GM Lactulose (Chronulac Syrup) 30 gm Q6H PO 02/21/17 09:00 03/23/17 08:59 Future Hold 02/24/17 08:23 30 GM Amiodarone HCl (Cordarone Tab) 200 mg BID PO 02/21/17 21:00 03/23/17 20:59 02/25/17 20:56 200 MG Apixaban (Eliquis Tab) 5 mg BID PO 02/21/17 16:00 03/23/17 15:59 Future hold 02/25/17 20:56 5 MG Acetaminophen (Tylenol Soln) 650 mg Q4H PRN PO 02/22/17 10:00 03/24/17 09:59 02/23/17 08:07 650 MG Hydromorphone HCl (Dilaudid Inj) 1 mg Q4 PRN IV 02/22/17 14:00 03/08/17 13:59 02/23/17 18:23 1 MG Miscellaneous Information (Consult Glycemic Management Pharmacy) 1 ea UD PRN N/A 02/22/17 15:30 03/24/17 15:29 Insulin Aspart (novoLOG ASPART) SLIDING SCALE Q6H SC 02/23/17 18:00 03/25/17 17:59 02/25/17 00:23 7 UNITS Fentanyl Citrate 250 ml @ 0 mls/hr Q0M PRN IV 02/23/17 23:45 03/09/17 23:44 02/24/17 22:25 5 MLS/HR Furosemide 40 mg/ Syringe 4 ml @ 4 mls/min BID IV 02/25/17 21:00 03/27/17 20:59 02/25/17 20:59 4 MLS/MIN Insulin Glargine (Lantus Solostar Pen) Q12H SC 02/25/17 18:00 03/27/17 17:59 I & O: 24-Hour Column 02/26/17 08:00 Intake Total 185 ml Output Total 3900 ml Balance -3715 ml Vital Signs: Date Time Temp Pulse Resp B/P (MAP) Pulse Ox O2 Delivery O2 Flow Rate FiO2 02/25/17 20:10 95 CPAP 30 Mechanical Ventilator 02/25/17 20:10 30 02/25/17 19:45 30 02/25/17 17:41 30 02/25/17 16:30 89 94 02/25/17 16:15 93 CPAP 30 Mechanical Ventilator 02/25/17 16:15 30 02/25/17 16:01 37.5 94 23 98/54 (69) 93 CPAP 30 Mechanical Ventilator 02/25/17 16:00 95 27 95 02/25/17 15:30 92 23 95 02/25/17 15:01 85 25 99/55 (70) 94 02/25/17 15:00 86 24 94 02/25/17 14:50 30 02/25/17 14:21 37.4 95 26 101/58 (72) 94 CPAP 30 Mechanical Ventilator 02/25/17 14:09 30 02/25/17 12:00 99 24 107/59 (75) 94 CPAP 30 Mechanical Ventilator 02/25/17 12:00 CPAP 30 Mechanical Ventilator 02/25/17 12:00 30 02/25/17 11:04 30 02/25/17 10:00 91 24 89/55 (66) 94 Mechanical Ventilator 30 02/25/17 09:04 30 02/25/17 08:55 30 02/25/17 08:00 96 24 110/53 (72) 96 Mechanical Ventilator 30 02/25/17 08:00 30 02/25/17 08:00 Mechanical Ventilator 30 02/25/17 07:49 30 02/25/17 06:22 40 02/25/17 06:00 88 23 106/56 (73) 97 Mechanical Ventilator 40 02/25/17 04:00 96 Mechanical Ventilator 40 02/25/17 04:00 40 02/25/17 04:00 37.1 89 23 106/61 (76) 96 Mechanical Ventilator 40 02/25/17 02:21 40 02/25/17 02:00 87 22 111/60 (77) 97 Mechanical Ventilator 40 02/25/17 00:01 37.1 85 20 102/61 (75) 97 Mechanical Ventilator 40 02/24/17 23:59 40 02/24/17 23:59 97 Mechanical Ventilator 40 02/24/17 23:28 40 02/24/17 22:31 86 108/64 (79) 97 Mechanical Ventilator 40 Laboratory Results: Last 24 Hours Test 02/25/17 00:03 02/25/17 04:29 02/25/17 06:13 02/25/17 12:45 Bedside Glucose 130 mg/dl 71 mg/dl White Blood Count 9.06 K/uL Red Blood Count 3.67 M/uL Hemoglobin 12.2 g/dL Hematocrit 36.8 % Mean Corpuscular Volume 100.3 fL Mean Corpuscular Hemoglobin 33.2 pg Mean Corpuscular Hemoglobin Concent 33.2 g/dl Platelet Count 179 K/uL Mean Platelet Volume 11.9 fL Neutrophils (%) (Auto) 77.3 % Lymphocytes (%) (Auto) 12.6 % Monocytes (%) (Auto) 7.6 % Eosinophils (%) (Auto) 1.1 % Basophils (%) (Auto) 0.1 % Neutrophils # (Auto) 7.00 K/uL Lymphocytes # (Auto) 1.14 K/uL Monocytes # (Auto) 0.69 K/uL Eosinophils # (Auto) 0.10 K/uL Basophils # (Auto) 0.01 K/uL RDW Standard Deviation 60.3 fL RDW Coefficient of Variation 16.5 % Immature Granulocyte % (Auto) 1.3 % Immature Granulocyte # (Auto) 0.12 K/uL Sodium Level 144 mmol/L Potassium Level 4.4 mmol/L Chloride Level 109 mmol/L Carbon Dioxide Level 35 mmol/L Anion Gap 0.0 mmol/L Blood Urea Nitrogen 45 mg/dl Creatinine 1.07 mg/dl Est Creatinine Clear Calc Drug Dose 66.2 ml/min Estimated GFR () 78.8 Estimated GFR (Non- 68.0 BUN/Creatinine Ratio 42.2 Random Glucose 89 mg/dl Calcium Level 8.7 mg/dl Phosphorus Level 3.9 mg/dl Magnesium Level 2.5 mg/dl Blood Gas Sample Site L Radial Bedside Blood Gas pH (LAB) 7.43 Bedside Blood Gas pCO2 (LAB) 55 mmHg Bedside Blood Gas pO2 (LAB) 141 mmHg Bedside Blood Gas HCO3 (LAB) 37 meq/L Bedside Blood Gas Total CO2 39 mEq/l Bedside Blood Gas Base Excess (LAB) 13.0 meq/L Bedside Blood Gas O2 Saturation 99.0 % Ran Test Pass Oxygen Delivery Device Ventilator Bedside FiO2 40 % Blood Gas PEEP 5 Test 02/25/17 13:35 02/25/17 14:14 02/25/17 19:59 Bedside Glucose 64 mg/dl 91 mg/dl 97 mg/dl
[2017-02-26] VITALS (15 sets, daily range): BP systolic 101–113; BP diastolic 57–72; PULSE 81–97; TEMP 36.8–37.5; O2SAT 92–99
[2017-02-26] MEDS ORDERED: VANCOMYCIN TROUGH ONE (03:30)
[2017-02-26 03:35] LABS: BASO % 0.2 %; BASO ABS # 0.02 K/uL (0-0.2); EOS % 0.7 %; EOS ABS # 0.07 K/uL (0-0.5); HEMATOCRIT 39.8 % (42-52); HEMOGLOBIN 13.1 g/dL (14.0-18.0); IG# 0.07 K/uL (0.00-0.02); LYMPH % 12.4 %; LYMPH ABS # 1.24 K/uL (1.2-3.4); MEAN CELL VOLUME 100.5 fL (80-100); MEAN CORPUSCULAR HEMOGLOBIN 33.1 pg (25-34); MEAN CORPUSCULAR HGB CONC 32.9 g/dl (32-36); MEAN PLATELET VOLUME 10.7 fL (7.4-10.4); MONO % 7.9 %; MONO ABS # 0.79 K/uL (0.11-0.59); NEUT % 78.1 %; NUCLEATED RED BLOOD CELL ABS 0.02 K/uL (0-0); PLATELET COUNT 213 K/uL (130-400); RED CELL DISTRIBUTION WIDTH CV 16.7 % (11.5-14.5); WHITE BLOOD COUNT 9.99 K/uL (4.8-10.8)
[2017-02-26 03:53] LABS: CALCIUM 8.8 mg/dl (8.5-10.1); CREATININE 1.2 mg/dl (0.60-1.40); POTASSIUM 4.1 mmol/L (3.5-5.1)
[2017-02-26 03:54] LABS: PHOSPHORUS 3.9 mg/dl (2.5-4.9)
[2017-02-26] MEDS: IMPACT LIQ 1000 ML BAG OG SCH (04:21)
[2017-02-26] MEDS: FAMOTIDINE IV INJ 20 MG in SYRINGE 3 ML IV SCH ×2 (05:37→19:31)
[2017-02-26] MEDS: INSULIN GLARGINE SOLOSTAR 100 UNITS/ML 3 ML PEN SC SCH ×2 (05:42→18:00)
[2017-02-26] MEDS: INSULIN ASPART 100 UNITS/ML 3 ML PEN SC SCH ×4 (05:43→18:00)
--- NOTE | 2017-02-26 07:06 | DIAGNOSTIC IMAGING REPORT ---
CHEST ONE VIEW PORTABLE CLINICAL HISTORY: Respiratory failure COMPARISON STUDY: 02/25/2017 FINDINGS: There is an endotracheal tube 5 cm above the mickie. There is a nasogastric tube which passes into the stomach. The cardiac and sternal contours remain stable. There are progressive bibasilar opacities, atelectatic versus inflammatory. There is bilateral subcutaneous emphysema] than left. IMPRESSION: Progressive bibasilar airspace opacities, atelectatic versus infectious/inflammatory. Electronically signed by: Jass Genao M.D. 02/26/2017 7:05 AM Dictated Date/Time: 02/26/2017 7:03 AM
--- NOTE | 2017-02-26 07:12 | DIAGNOSTIC IMAGING REPORT ---
CHEST ONE VIEW PORTABLE HISTORY: Complaints of difficulty breathing COMPARISON: Chest 02/25/2017. FINDINGS: Right chest wall subcutaneous emphysema is again noted. No definite pneumothorax. Trace bilateral pleural effusions persist. Left retrocardiac density is again noted. The upper lungs and remain clear. No evidence for pulmonary edema. The heart remains mildly enlarged. Endotracheal tube terminates approximately 4.7 cm of the mickie. Nasogastric tube is curled just beyond the gastroesophageal junction. This should be advanced by approximate 5 cm. IMPRESSION: 1. Nasogastric tube is curled just beyond the gastroesophageal junction. This should be advanced by approximately 5 cm. 2. Left retrocardiac density which may represent atelectasis or pneumonia. 3. No pneumothorax. Electronically signed by: Akash Morocho M.D. 02/26/2017 7:11 AM Dictated Date/Time: 02/26/2017 7:09 AM
[2017-02-26] MEDS: ALBUTEROL HFA 8 GM INHALER INH SCH (07:25)
[2017-02-26] MEDS: IPRATROPIUM BROMIDE HFA INHALER INH SCH (07:25)
[2017-02-26] MEDS ORDERED: ALBUTEROL HFA 8 GM INHALER INH PRN (08:00)
[2017-02-26] MEDS ORDERED: AMIODARONE IV BOLUS / DRIP IV STA (08:49)
[2017-02-26] MEDS ORDERED: AMIODARONE 150MG / 100ML D5W ONE (08:55)
[2017-02-26] MEDS ORDERED: AMIODARONE / D5W 100 ML IV ONE (09:00)
[2017-02-26] MEDS ORDERED: AMIODARONE / D5W 200 ML IV SCH (09:10)
[2017-02-26] MEDS: POLYETHYLENE (MIRALAX) 17 GM PACK PO SCH (09:34)
[2017-02-26] MEDS ORDERED: NURSING VERBAL MED ORDER ONE (10:00)
[2017-02-26] MEDS ORDERED: ACETAZOLAMIDE IV PUSH 500 MG in SYRINGE 0 ML IV ONE (13:00)
--- NOTE | 2017-02-26 13:09 | Pharmacy Progress Note ---
Glycemic Control Progress Note Date of Service Feb 26, 2017. Scope Glycemic Pharmacist consulted for glycemic control to write orders per [facility] inpatient glycemic control protocol. Objective Accuchecks BSG (last 24hrs): Test 02/25/17 13:35 02/25/17 14:14 02/25/17 19:59 02/26/17 00:56 Bedside Glucose 64 mg/dl (70-99) 91 mg/dl (70-99) 97 mg/dl (70-99) 113 mg/dl (70-99) Test 02/26/17 03:27 02/26/17 05:40 Random Glucose 130 mg/dl (70-99) Bedside Glucose 127 mg/dl (70-99) HbA1c: Test 02/18/17 04:07 Hemoglobin A1c 6.9 % (4.5-5.6) H Recent Pertinent Medications The patient is currently receiving: * Basal insulin: Lantus 0-10 units every 12 hours * Correctional Insulin: Novolog Correction per scale Q6H Goal Range: Low 120 mg/dL - High 160 mg/dL Correction Factor: 25 mg/dL/unit * Prandial insulin: 1 unit insulin for every 10 g CHO Outpatient Anti-Diabetic Meds None Assessment & Plan ASSESSMENT: 02/25/17 * 76yo male with hyperglycemia secondary to baseline DM, stress, continuous tube feedings, mechanical ventilation, etc * BSg's ranging 71-130 mg/dL over the last 24 hours - this is lower than goal for ICU patient. Most recent BSG 71 mg/dL @ ~1300 despite Lantus and Novolog being held this AM. This is likely multifactorial including: * Regimen heavily weighted towards basal insulin (60%) * Tubefeeds decreased yesterday and held this AM in anticipation of possible extubation * Will re-check BSG 1 hour after result of 71 mg/dL to ensure Lantus 16 units administered last night does not cause hypoglycemia now that tubefeeds have been held * Will significantly reduce Lantus and only give additional if BSG > 100 mg/dL * Will loosen correction factor and provide CHO ratio (rather than fixed dose insulin to cover CHO in tube feeds) to allow for adjustment of insulin administration depending on tubefeed rate * Would prefer regular insulin for CHO coverage while on continuous tubefeeds, however since patient is not hyperglycemic, OK to continue Novolog for now. May need to either change to Novolog q4h or regular insulin q6h if patient becomes hyperglycemic 02/26/17 * Patient was extubated this AM. Short run of VTach noted during ICU rounds. Cardiology started amiodarone gtt. * BSG's ranging 64-127 mg/dL over the last 24 hours * Patient received no insulin yesterday * Hypoglycemia to 64 mg/dL noted yesterday afternoon - this is likely 2nd Lantus 16 units administered 02/24 PM then tubefeeds held yesterday AM * Will change hold parameters on Lantus from less than 100 to less than 120 mg/ dL to ensure repeat hypoglycemia does not occur * Tubefeed rates continue to change 2nd extubation anticipation. * 02/26 800-2000: held * 02/26 2000 - 02/27 800: 60 mL/hr * 02/27 800 - present: holding * Continue lower dose Lantus to prevent hypoglycemia. Will adjust Novolog if/ when BSG's increase. Continue Novolog as-is for now. PLAN FOR INPATIENT GLYCEMIC CONTROL: * Basal insulin - Lantus SC q12@, (to coincide with BSG checks during Q6 Novolog) * 0 units for BSG < 120 mg/dL * 5 units for Impact <= 20 mL/hr and BSG >= 120 mg/dL * 10 units for Impact > 20 mL/hr and BSG >= 120 mg/dL * Bolus insulin * NovoLog per scale Q6hrs while NPO * Goal Range: Low 120 mg/dL - High 160 mg/dL * Correction Factor: 25 mg/dL/unit * Nutritional / Prandial insulin per carb ratio of 1 unit per 10 grams CHO consumed (including CHO in Impact) * Please note that the plan above was derived based on current level of insulin resistance and hospital stress. These recommendations are appropriate for inpatient admission only. Plan of care upon discharge will need to be reassessed to avoid potential outpatient hypo/hyperglycemia. Thank you.
[2017-02-26] MEDS: FUROSEMIDE INJ 40 MG in SYRINGE 0 ML IV SCH (13:35)
--- NOTE | 2017-02-26 14:07 | Cardiology Follow-Up ---
Subjective Subjective Date of Service: Feb 26, 2017. Pt evaluation today including: conversation w/ patient, physical exam, chart review, lab review, review of studies, review of inpatient medication list Additional Details: Pt seen and examined, extubated. Alert feeling well. Did have nonsustained v- tach after extubation and frequent ventricular ectopy. Asymptomatic. Tele reviewed: sinus rhythm with run of NSVT and frequent ventricular ectopy. Problem List Medical Problems: (1) Elevated troponin Status: Acute (2) Pneumothorax on right Status: Acute (3) Pulmonary edema Status: Acute (4) Rib fractures Status: Acute (5) Ventricular tachycardia Status: Acute Objective Vital Signs Last Vital Signs Documentation Date Time Temp Pulse Resp B/P (MAP) Pulse Ox O2 Delivery O2 Flow Rate FiO2 02/26/17 12:00 Humidified Air Mask 02/26/17 12:00 84 22 101/64 (76 96 9.0 40 02/26/17 04:01 37.4 Physical Exam: General Appearance: no apparent distress Eyes: bilateral eyes normal inspection, bilateral eyes PERRL, bilateral eyes EOMI ENT: normal ENT inspection, hearing grossly normal Neck: supple, no adenopathy, thyroid normal, no JVD, no carotid bruits, trachea midline Respiratory/Chest: chest non-tender, lungs clear, normal breath sounds, no respiratory distress, no accessory muscle use Cardiovascular: regular rate, rhythm, no edema, no murmur Abdomen: normal bowel sounds, soft, no organomegaly, no pulsatile mass Extremities: normal inspection, no pedal edema Neurologic/Psychiatric: gold charmer II-XII nml as tested, no motor/sensory deficits, alert Skin: normal color, warm/dry, no rash Lymphatic: no adenopathy Assessment and Plan 1. V-tach arrest now extubated unfortunately, nonsustained v-tach s/p extubation also with frequent ventricular ectopy ideally would give IV beta jeffry but since only extubated for a few hours now would be hesitant will rebolus and load IV amio for arrhythmia suppression our EP colleague will evaluate patient for BiV ICD placement, likely next week after medically stabilized will hold am dose of Eliquis and likely restart in PM, remains in sinus
[2017-02-26] MEDS: AMIODARONE / D5W 200 ML IV SCH (14:39)
--- NOTE | 2017-02-26 14:51 | Progress Note ---
Progress Note Date of Service Feb 26, 2017. Progress Note Full EP consult dictated (dictation number [id number]); Pt with ICM EF 25-30%, s/p VT cardiac arrest fortunately lifevest saved his life. He has underlying LBBB and chronic systolic HF, NYHA Class III. recommend BiV ICD before hospital discharge; will put on schedule for Fri03/05/2017 procedure to be done with anesthesia in the EP lab. Pt will need an IV access in the left arm for the procedure. Would hold eliquis the day prior to procedure-so last dose to be in the evening.
[2017-02-26] MEDS ORDERED: HEPARIN IV LOW DOSE NO BOLUS SCH (15:06)
--- NOTE | 2017-02-26 15:49 | CARDIOLOGY CONSULTATION ---
DATE OF CONSULTATION: 02/26/2017 DATE OF CONSULTATION: 02/26/2017 REFERRING PHYSICIAN: Dr. Ambrosio. REASON FOR REFERRAL: ICD insertion. HISTORY OF PRESENT ILLNESS: This is a 76-year-old gentleman who has a past medical history significant for ischemic cardiomyopathy where he was newly diagnosed in December of this year, ejection fraction 30-35%. He was admitted to [facility] at that time where he underwent a nuclear stress test demonstrating a large fixed scar of the inferior, inferolateral and lateral wall extending into the basal segments and the apical segments, no ischemia. He is medically managed. He has a remote history of myocardial infarction in 1989 with RCA territory scar. Ejection fraction at that time was 45-50%. He has a chronic left bundle branch block, hypertension, hyperlipidemia, nocturnal hypoxemia, oxygen at nighttime, peripheral vascular disease, diabetes, COPD and probable sleep apnea. During his December admission from [facility] he was discharged home on LifeVest. He was doing okay until the day of admission when the LifeVest shocked him for VF arrest. On arrival to the Emergency Room on 02/17/2017 he was in V-tac. He had CPR and ACLS. He was begun on pressors and he was intubated and sedated. 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 However, he has turned for the better. He was extubated today. He did have some nonsustained VT and VTE today. Amiodarone was rebolused. He is responding appropriately and moving all extremities. He does not seem to have any focal deficits from his pontine stroke. For this reason, electrophysiology was consulted. The patient does report shortness of breath, no chest pains, no palpitations. PAST MEDICAL HISTORY: As outlined above. PAST SURGICAL HISTORY: Colonoscopy. FAMILY HISTORY: Mother in 1977 at the age of 78. Father had heart disease, in his early 60s. Sister of brain cancer, brother had pancreatic cancer. SOCIAL HISTORY: He is a former tobacco user. Occasional alcohol. ALLERGIES: LISINOPRIL. HOME MEDICATIONS: Cozaar, Crestor, Aldactone, Demadex, Toprol, Combivent, Viagra, and aspirin. CURRENT MEDICATIONS: Include amiodarone drip, insulin, Eliquis as he was in Afib while he was here. REVIEW OF SYSTEMS: All other 10 point review of systems were reviewed and are essentially negative. See HPI for pertinent positives. PHYSICAL EXAMINATION: VITAL SIGNS: Heart rate 87, respirations 18, blood pressure 110/66, oxygen saturations 96% on 6 liters nasal cannula. GENERAL: He is awake, alert and oriented x3, sitting up in the bed with his family at his bedside. HEAD, EYES, EARS, NOSE, AND THROAT: Normocephalic, atraumatic. Extraocular motion intact. Sclerae is nonicteric. Mucous membranes moist. NECK: Supple. Mucous membranes on the database operator side. No JVD in the neck. CARDIOVASCULAR: Normal S1, S2 on the distant side. No murmur appreciated. PULMONARY: Bilateral decreased breath sounds at the bases but he was just extubated. ABDOMEN: Obese and soft. EXTREMITIES: No edema bilateral lower extremities. Peripheral pulses intact. NEUROLOGIC: Grossly intact. SKIN: Grossly intact. PERTINENT TESTING: Chest x-ray today demonstrates progressive bibasilar airspace opacities, atelectasis versus inflammation or infiltrate. EKG on 02/22/2017 in sinus at 84 beats per minute with left bundle branch block, QRS duration is 174 beats per minute. EKG on 02/17/2017 sinus 64 beats per minute, possible left bundle branch block with a QRS of 142. Repeat echocardiogram on 02/17/2017 ejection fraction 25-30%, posterior wall and inferior wall akinesis, moderate apical hypokinesis, septal wall is consistent with conduction abnormalities, thinning of the inferior, posterior and lateral wall, moderate to severe mitral regurgitation, no pericardial effusion. Nuclear stress test as outlined above. LABORATORY STUDIES: Hematology: WBC is 9.9, hemoglobin 13, hematocrit 39.8, platelets 213. Chemistry: Sodium 146, potassium 4.1, chloride 107, carbon dioxide 39, BUN 44, creatinine 1.2, glucose 130, calcium 8.8, magnesium 2.7. Coagulation: PT 11.2, INR 1.1. He is no longer on antibiotics as his blood cultures were negative and he has been afebrile. IMPRESSION: 1. Status post ventricular tachycardia cardiac arrest. 2. Ischemic cardiomyopathy, ejection fraction 25-30%. 3. Left bundle branch block, QRS 142 milliseconds duration. 4. Chronic systolic heart failure, [place] Heart Association class III. 5. Coronary artery disease with large infralateral and inferolateral scarring on nuclear stress test in December 2016. 6. Hypertension. 7. Hyperlipidemia. 8. Nocturnal hypoxemia on permanent oxygen. 9. Peripheral vascular disease. 10. Diabetes. 11. COPD suspected. 12. Sleep apnea suspected. PLAN: Would recommend a biventricular implantable cardiac defibrillator prior to patient being discharged home or discharged from the hospital. Next available time to do this would be next Friday on 03/05/2017. We will arrange to do this with anesthesiology in our EP lab. He will need an IV access in his left arm prior to the procedure and he should hold his Eliquis the day prior to the procedure, so no Eliquis on 03/04/2017. I explained the risks, benefits and alternatives to the procedure. Risks include but not limited to sudden cardiac , cardiac arrhythmias, cerebrovascular accident, myocardial infarction, injury to the blood vessels, chamber of the heart, lungs, bleeding and infection. The patient understood these risks and agreed to the procedure as planned. We will get informed consent that day though. Continue IV amiodarone for today and then I would transition to p.o. amiodarone and if possible blood pressure holds start beta jeffry. He will need prophylatic antibiotics prior to the procedure as well.
[2017-02-26] MEDS ORDERED: HEPARIN 25000 UNIT/ D5W 500 ML (PHARMACY PREPARED) IV PRN ×2 (16:00)
[2017-02-26] MEDS ORDERED: HEPARIN 25,000 UNIT/500ML D5W 500 ML IV PRN (16:15)
[2017-02-26 16:17] LABS: BASO % 0.2 %; BASO ABS # 0.02 K/uL (0-0.2); EOS % 0.5 %; EOS ABS # 0.05 K/uL (0-0.5); HEMATOCRIT 42.5 % (42-52); HEMOGLOBIN 13.6 g/dL (14.0-18.0); IG# 0.08 K/uL (0.00-0.02); MEAN CELL VOLUME 102.9 fL (80-100); MEAN CORPUSCULAR HEMOGLOBIN 32.9 pg (25-34); MEAN PLATELET VOLUME 11.1 fL (7.4-10.4); MONO % 5.9 %; MONO ABS # 0.64 K/uL (0.11-0.59); NEUT % 81.7 %; NEUT ABS # 8.89 K/uL (1.4-6.5); PLATELET COUNT 221 K/uL (130-400); RED CELL DISTRIBUTION WIDTH CV 16.9 % (11.5-14.5); RED CELL DISTRIBUTION WIDTH SD 63.2 fL (36.4-46.3); WHITE BLOOD COUNT 10.88 K/uL (4.8-10.8)
[2017-02-26 16:33] LABS: INR 1.1 (0.9-1.1); PTT PATIENT 28.3 SECONDS (21.0-31.0)
--- NOTE | 2017-02-26 17:57 | Progress Note ---
Subjective Date of Service: Feb 26, 2017. Subjective Pt evaluation today including: conversation w/ patient, conversation w/ family , physical exam, lab review, review of studies, review of inpatient medication list Saw/examined the patient in room 110 Currently extubated; difficulty with speaking and throat pain external defibrillator in place amiodarone drip being started now daughter is worried about his COPD and oxygen; and also concerned hiatal hernia/ GERD Problem List Medical Problems: (1) Elevated troponin Status: Acute (2) Pneumothorax on right Status: Acute (3) Pulmonary edema Status: Acute (4) Rib fractures Status: Acute (5) Ventricular tachycardia Status: Acute Review of Systems Constitutional: No fever, No chills ENT: + sore throat, + trouble swallowing Respiratory: + cough, No wheezing, No shortness of breath, No dyspnea on exertion, No dyspnea at rest, No hemoptysis Cardiac: No chest pain, No edema, No palpitations Medications Current Inpatient Medications Medications (Trade) Dose Ordered Sig/Shakira Route Start Time Stop Time Status Last Admin Dose Admin Ondansetron HCl (Zofran Inj) 4 mg Q6H PRN IV 02/17/17 02:30 03/19/17 02:29 Artificial Tears (Lacri-Lube Oph Oint) 1 appln Q2H PRN OPB 02/17/17 03:15 03/19/17 03:14 Famotidine 20 mg/ Syringe 5 ml @ 2.5 mls/min Q12H IV 02/17/17 06:00 03/19/17 05:59 02/26/17 05:37 2.5 MLS/MIN Glucose (Glucose 40% Gel) 15-30 GRAMS 15 GRAMS... UD PRN PO 02/17/17 05:15 03/19/17 05:14 Glucose (Glucose Chew Tab) 4-8 Tablets 4 Tabl... UD PRN PO 02/17/17 05:15 03/19/17 05:14 Dextrose (Dextrose 50% 50ML Syringe) 25-50ML OF 50% DW IV FOR... UD PRN IV 02/17/17 05:15 03/19/17 05:14 02/25/17 19:21 25 ML Glucagon (Glucagon Inj) 1 mg UD PRN SQ 02/17/17 05:15 03/19/17 05:14 Dopamine HCl/ Dextrose 250 ml @ 0 mls/hr Q0M PRN IV 02/17/17 16:13 03/19/17 16:12 02/24/17 03:11 17.1 MLS/HR Heparin Sodium (Porcine) (Heparin 10 Unit/ ml 5 ml Flush) 5 ml PRN PRN FLUSH 02/18/17 00:15 03/20/17 00:14 Enteral Nutritional Formula (Impact 1.0 Shyam) 1,000 ml UD OG 02/20/17 09:30 03/22/17 09:29 02/26/17 04:21 1,000 ML Docusate Sodium (coLACE SYRUP) 100 mg BID PO 02/20/17 21:00 03/22/17 20:59 Future Hold 02/24/17 08:23 100 MG Polyethylene (Miralax Powder Packet) 17 gm DAILY PO 02/21/17 09:00 03/23/17 08:59 02/25/17 10:35 17 GM Lactulose (Chronulac Syrup) 30 gm Q6H PO 02/21/17 09:00 03/23/17 08:59 Future Hold 02/24/17 08:23 30 GM Amiodarone HCl (Cordarone Tab) 200 mg BID PO 02/21/17 21:00 03/23/17 20:59 Future Hold 02/25/17 20:56 200 MG Apixaban (Eliquis Tab) 5 mg BID PO 02/21/17 16:00 03/04/17 22:59 Future Hold 02/25/17 20:56 5 MG Acetaminophen (Tylenol Soln) 650 mg Q4H PRN PO 02/22/17 10:00 03/24/17 09:59 02/23/17 08:07 650 MG Hydromorphone HCl (Dilaudid Inj) 1 mg Q4 PRN IV 02/22/17 14:00 03/08/17 13:59 02/23/17 18:23 1 MG Miscellaneous Information (Consult Glycemic Management Pharmacy) 1 ea UD PRN N/A 02/22/17 15:30 03/24/17 15:29 Insulin Aspart (novoLOG ASPART) SLIDING SCALE Q6H SC 02/23/17 18:00 03/25/17 17:59 02/25/17 00:23 7 UNITS Fentanyl Citrate 250 ml @ 0 mls/hr Q0M PRN IV 02/23/17 23:45 03/09/17 23:44 02/24/17 22:25 5 MLS/HR Furosemide 40 mg/ Syringe 4 ml @ 4 mls/min BID IV 02/25/17 21:00 03/27/17 20:59 Future Hold 02/25/17 20:59 4 MLS/MIN Insulin Glargine (Lantus Solostar Pen) Q12H SC 02/25/17 18:00 03/27/17 17:59 02/26/17 05:42 5 UNITS Amiodarone HCL/ Dextrose 200 ml @ 16.7 mls/hr [id number] IV 02/26/17 15:10 03/28/17 15:09 02/26/17 14:39 16.7 MLS/HR Heparin Sodium/ Dextrose 500 ml @ 19 mls/hr Q24H PRN IV 02/26/17 16:15 03/28/17 16:14 02/26/17 17:44 19 MLS/HR Objective Vital Signs Date Time Temp Pulse Resp B/P (MAP) Pulse Ox O2 Delivery O2 Flow Rate FiO2 02/26/17 16:00 37.0 82 20 112/71 (85) 96 Nasal Cannula 6.0 02/26/17 16:00 99 Nasal Cannula 6.0 02/26/17 14:19 87 18 110/66 (81) 96 Nasal Cannula 6.0 02/26/17 12:00 Humidified Air Mask 02/26/17 12:00 84 22 101/64 (76) 96 Humidified Air 9.0 40 Humidified Oxygen 02/26/17 10:00 87 22 106/64 (78) 92 Humidified Air 9.0 Humidified Oxygen 02/26/17 08:00 90 26 112/65 (81) 94 Humidified Air 9.0 Humidified Oxygen 02/26/17 08:00 Humidified Air Mask 02/26/17 07:10 30 02/26/17 05:38 30 02/26/17 05:01 95 109/64 (79) 98 02/26/17 04:01 37.4 97 29 105/72 (83) 92 CPAP 30 02/26/17 04:00 CPAP 30 Mechanical Ventilator 02/26/17 04:00 30 02/26/17 03:01 90 26 104/57 (73) 94 02/26/17 02:30 90 23 93 CPAP 30 02/26/17 02:28 30 02/26/17 02:01 87 23 102/57 (72) 92 02/26/17 01:01 90 29 113/65 (81) 92 02/26/17 00:01 37.5 92 26 104/57 (73) 94 CPAP 30 Mechanical Ventilator 02/25/17 23:59 30 02/25/17 23:59 CPAP 30 Mechanical Ventilator 02/25/17 23:01 100 29 109/61 (77) 92 02/25/17 22:15 30 02/25/17 20:10 95 CPAP 30 Mechanical Ventilator 02/25/17 20:10 30 02/25/17 19:45 30 Physical Exam General Appearance: no apparent distress, + pertinent finding (extubated; not speaking due to throat pain; difficulty with swallowing) Respiratory/Chest: chest non-tender, lungs clear, normal breath sounds, no respiratory distress, no accessory muscle use Cardiovascular: regular rate, rhythm, no edema, no murmur Extremities: normal range of motion, non-tender, normal inspection, no pedal edema, no calf tenderness Laboratory Results Last 24 Hours Test 02/25/17 19:16 02/25/17 19:59 02/25/17 23:54 02/26/17 00:56 Bedside Glucose 65 mg/dl 97 mg/dl 113 mg/dl Blood Gas Specimen Type ARTERIAL Blood Gas Sample Site L Radial Blood Gas Patient Temperature 37.5 Bedside Blood Gas pH (LAB) 7.46 Bedside Blood Gas pCO2 (LAB) 60 mmHg Bedside Blood Gas pO2 (LAB) 80 mmHg Bedside Blood Gas HCO3 (LAB) 42 meq/L Bedside Blood Gas Total CO2 44 mEq/l Bedside Blood Gas Base Excess (LAB) 19.0 meq/L Bedside Blood Gas O2 Saturation 96.0 % Oxygen Saturation (Pulse Oximetry) 93 % Ran Test PASS Oxygen Delivery Device Ventilator Bedside FiO2 30 % Blood Gas PEEP 5 Blood Gas Pressure Support 8 Test 02/26/17 03:27 02/26/17 05:40 02/26/17 05:44 02/26/17 13:33 White Blood Count 9.99 K/uL Red Blood Count 3.96 M/uL Hemoglobin 13.1 g/dL Hematocrit 39.8 % Mean Corpuscular Volume 100.5 fL Mean Corpuscular Hemoglobin 33.1 pg Mean Corpuscular Hemoglobin Concent 32.9 g/dl Platelet Count 213 K/uL Mean Platelet Volume 10.7 fL Neutrophils (%) (Auto) 78.1 % Lymphocytes (%) (Auto) 12.4 % Monocytes (%) (Auto) 7.9 % Eosinophils (%) (Auto) 0.7 % Basophils (%) (Auto) 0.2 % Neutrophils # (Auto) 7.80 K/uL Lymphocytes # (Auto) 1.24 K/uL Monocytes # (Auto) 0.79 K/uL Eosinophils # (Auto) 0.07 K/uL Basophils # (Auto) 0.02 K/uL RDW Standard Deviation 61.0 fL RDW Coefficient of Variation 16.7 % Immature Granulocyte % (Auto) 0.7 % Immature Granulocyte # (Auto) 0.07 K/uL Nucleated RBC Absolute Count (auto) 0.02 K/uL Nucleated Red Blood Cells % 0.2 % Sodium Level 146 mmol/L Potassium Level 4.1 mmol/L Chloride Level 107 mmol/L Carbon Dioxide Level 39 mmol/L Anion Gap 0.0 mmol/L Blood Urea Nitrogen 44 mg/dl Creatinine 1.20 mg/dl Est Creatinine Clear Calc Drug Dose 59.3 ml/min Estimated GFR () 68.6 Estimated GFR (Non- 59.2 BUN/Creatinine Ratio 36.6 Random Glucose 130 mg/dl Calcium Level 8.8 mg/dl Phosphorus Level 3.9 mg/dl Magnesium Level 2.7 mg/dl Vancomycin Level Trough 4.8 mcg/ml Bedside Glucose 127 mg/dl 115 mg/dl Blood Gas Specimen Type ARTERIAL Blood Gas Sample Site L Radial Blood Gas Patient Temperature 37.4 Bedside Blood Gas pH (LAB) 7.46 Bedside Blood Gas pCO2 (LAB) 61 mmHg Bedside Blood Gas pO2 (LAB) 84 mmHg Bedside Blood Gas HCO3 (LAB) 44 meq/L Bedside Blood Gas Total CO2 45 mEq/l Bedside Blood Gas Base Excess (LAB) 20.0 meq/L Bedside Blood Gas O2 Saturation 96.0 % Oxygen Saturation (Pulse Oximetry) 93 % Ran Test PASS Oxygen Delivery Device Ventilator Bedside FiO2 30 % Blood Gas PEEP 5 Blood Gas Pressure Support 5 Test 02/26/17 16:05 White Blood Count 10.88 K/uL Red Blood Count 4.13 M/uL Hemoglobin 13.6 g/dL Hematocrit 42.5 % Mean Corpuscular Volume 102.9 fL Mean Corpuscular Hemoglobin 32.9 pg Mean Corpuscular Hemoglobin Concent 32.0 g/dl Platelet Count 221 K/uL Mean Platelet Volume 11.1 fL Neutrophils (%) (Auto) 81.7 % Lymphocytes (%) (Auto) 11.0 % Monocytes (%) (Auto) 5.9 % Eosinophils (%) (Auto) 0.5 % Basophils (%) (Auto) 0.2 % Neutrophils # (Auto) 8.89 K/uL Lymphocytes # (Auto) 1.20 K/uL Monocytes # (Auto) 0.64 K/uL Eosinophils # (Auto) 0.05 K/uL Basophils # (Auto) 0.02 K/uL RDW Standard Deviation 63.2 fL RDW Coefficient of Variation 16.9 % Immature Granulocyte % (Auto) 0.7 % Immature Granulocyte # (Auto) 0.08 K/uL Prothrombin Time 11.8 SECONDS Prothromb Time International Ratio 1.1 Activated Partial Thromboplast Time 28.3 SECONDS Partial Thromboplastin Ratio 1.1 Assessment and Plan VTACH CARDIAC ARREST : 02/26 extubated amiodarone drip being started heparin drip being started b-jeffry to be restarted in 24hrs as per cardiology 02/25 doing well, intubated, but requiring less ventilation as per senior product analyst - possible extubation in AM 02/24 on CPAP trial cont daily weaning protocol once extubated , will need to be evaluated for AICD placement Cardiology following 02/23/17 : unable to tolerate CPAP trial cont daily weaning protocol neurologically much improved , awake and alert , following commands 02/22/17: remains intubated , failed CPAP trial today CXray no pneumothorax noted ,satisfactory line placement -rt jugular CVP terminates at the brachiocephalic /SVC junction rt sided pleural catheter unchanged position mild central pulmonary congestion ordered 40 mg IV Lasix by Dr Porras on Amiodarone 200 mg VIA OG tube BID on Dopamine gtt Lopressor not initiated due to hypotensive Cardiology following 02/21/17 : remains intubated , off pressors on Amiodarone 200 mg per G-tube twice a day. IV heparin D/yaima on Eliquis 5 mg BID via G tube appreciate input form Cardiology and Forest Ecologist 02/20 : remains intubated continued CPAP trial 02/19/17 : taken off Hypothermic protocol , Body core temp at normal 37.5 started to wean off sedation ( required large amount of sedation : Fentanyl @ 200 mcq, Versed @ 10mg/h ) cont CPAP trial appreciate input /help from Forest Ecologist rt sided Chest tube remains in air seal converted to sinus rhythm /rate controlled @ 60's , on Amiodarone gtt improved Qtc on IV Heparin gtt on Dobutamine and Levophed gtt if pt able to recover enough to be extubated without neurological deficit will benefit with AICD placement during this hospital cardiology following 02/18/2017: HX of CAD with ischemic cardiomyopathy , 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 developed pneumothorax with extensive Rt sided sub q emphysema due to CPR Cxray shows 02/16/17 : Rt sided pneumothorax with max pleural separation of 1.4 cm s/p rt right chest tube placement while in ICU , cardiac rhythm changed to Afib on amiodarone gtt /IV heparin started due arrhythmia -Afib appreciate input form Cardiology warming process started this morning appreciate help and input form the senior product analyst if pt is able to recover with adequate neurological capacity will need AICD placement COPD and chronic respiratory failure underlying COPD (smoked 1PPD for around 60 years) on chronic O2 at home - around 2L chronically will need O2 on discharge will need nebulizer machine and meds on discharge should have inhaler on discharge as well GERD/Hiatal Hernia currently on IV Pepcid will need H2-jeffry on discharge AFIB : Amiodarone + Eliquis paroxysmal Afib due to cardiogenic shock / hypoxia on Amiodarone 200 mg BID via OG tube Eliquis 5 mg BID via OG tube ACUTE CVA : 02/25 cont. Eliquis for now MRI of brain 02/21/17 Findings concerning for a punctate focus of ischemia at the junction of the right inferior jeannie and medulla. This may represent a small lacunar infarct versus a punctate embolic infarct. No evidence of anoxic brain injury. possible cardiogenic emboli /pt been started on IV heparin since admission -pt is on Eliquis via NG tube neurology following pt is showing good prognosis factor with improve neurological alertness continue weaning protocol from vent will need life long anticoagulation ELEVATED TROPONIN : low LVEF at around 25-30% pt. with v-tach and cardiac arrest on admission due to Vtach cardiac arrest /aggressive CPR doubt due to acute LA /atherothrombotic plaque rupture Kris 0.40-> 10-> 11-> 8.4 ECHO 02/16/17 : thinning and scar of the inferior base, posterior and inferolateral ye. Septal motion is consistent with conduction abnormality. moderate apical wall hypokinesis. inferior wall akinesis. posterior wall akinesis. Ejection Fraction = 25-30%. ECHO unchanged from prior study on 12/2016 Cardiology following closely ROBERTO ON CKD STAGE 3 : resolved , Cr improved 1.06 due to Cardiac arrest /hypoperfusion of organs TYPE 2 DM : on Insulin gtt pharmacy following for glycemic management LACTIC ACIDOSIS : resolved Lactic acid 1.2 -after adequate tissue perfusion establish with Hypothermic protocol /pressors lactic acid was > 2 , with out any evidence of infection or sepsis due to Cardiogenic shock /organ /tissue hypoperfusion Supportive care provided with IV pressors /Hypothermic protocol DVT PROPHYLAXIS Eliquis DNR /DNI DISPOSITION remains critically ill in ICU
[2017-02-26] MEDS: HYDROmorphone INJ 1 MG/ML SYR IV PRN (20:31)
--- NOTE | 2017-02-26 23:48 | Critical Care Progress Note ---
Critical Care Progress Note Date of Service Feb 26, 2017. ICU Day ICU Day Number: [address] Haque Subjective Much improved after extubation Objective Neuro alert and oriented Cardiovascular S1-S2 Chest: Removed right-sided chest tube today placed occlusive dressing Respiratory distant lung sounds, subcutaneous emphysema improving Abdomen: Soft nondistended nontender Extremities 1+ edema Current SOFA Score SOFA Score Response (Comments) Value PaO2/FiO2 (mmHg) < 400 1 Platelets (x10) > 150 0 Bilirubin (mg/dL) 1.2 - 1.9 1 Mary Coma Score 15 0 Level of Hypotension No Hypotension 0 Creatinine (mg/dL) < 1.2 0 Total 2 Assessment & Plan PLAN: Neuro: Significant for improvement Resp: COPD Successfully liberated from mechanical ventilation today CV: Several beats of nonsustained ventricular tachycardia * Discussed with cardiology will reload with IV amiodarone * Plan for AICD next Friday On systemic anticoagulation secondary to low EF Fluids/Renal: Holding IV fluids, holding diuresis secondary to a significant diuresis yesterday ID: Discontinue antibiotics secondary to being afebrile and normal respiratory cultures GI/Nutrition: Did not pass bedside swallow remains nothing by mouth, speech to see 1221 Heme: Systemic anticoagulation secondary to low EF Endocrine: Adequate cortisol response At risk for reintubation given multiple rib fractures and significant COPD I have personally spent 40 minutes of critical care time in the direct management of this patient. This is a life/limb threatening event. This includes time spent evaluating patient, direct bedside care, chart review, placing orders, interpretation of diagnostic studies, discussion with consultants, patient, and family members, as well as other required patient management activities. This time is exclusive of all separately billable procedures, and teaching time and separate from and in addition to any other critical care service time. Consults & Procedures Consultants: cardiology Procedures: Surgical chest tubes 2 both removed Data Medications: Current Inpatient Medications Medications (Trade) Dose Ordered Sig/Shakira Route Start Time Stop Time Status Last Admin Dose Admin Ondansetron HCl (Zofran Inj) 4 mg Q6H PRN IV 02/17/17 02:30 03/19/17 02:29 Artificial Tears (Lacri-Lube Oph Oint) 1 appln Q2H PRN OPB 02/17/17 03:15 03/19/17 03:14 Famotidine 20 mg/ Syringe 5 ml @ 2.5 mls/min Q12H IV 02/17/17 06:00 03/19/17 05:59 02/26/17 19:31 2.5 MLS/MIN Glucose (Glucose 40% Gel) 15-30 GRAMS 15 GRAMS... UD PRN PO 02/17/17 05:15 03/19/17 05:14 Glucose (Glucose Chew Tab) 4-8 Tablets 4 Tabl... UD PRN PO 02/17/17 05:15 03/19/17 05:14 Dextrose (Dextrose 50% 50ML Syringe) 25-50ML OF 50% DW IV FOR... UD PRN IV 02/17/17 05:15 03/19/17 05:14 02/25/17 19:21 25 ML Glucagon (Glucagon Inj) 1 mg UD PRN SQ 02/17/17 05:15 03/19/17 05:14 Dopamine HCl/ Dextrose 250 ml @ 0 mls/hr Q0M PRN IV 02/17/17 16:13 03/19/17 16:12 02/24/17 03:11 17.1 MLS/HR Heparin Sodium (Porcine) (Heparin 10 Unit/ ml 5 ml Flush) 5 ml PRN PRN FLUSH 02/18/17 00:15 03/20/17 00:14 Enteral Nutritional Formula (Impact 1.0 Shyam) 1,000 ml UD OG 02/20/17 09:30 03/22/17 09:29 02/26/17 04:21 1,000 ML Docusate Sodium (coLACE SYRUP) 100 mg BID PO 02/20/17 21:00 03/22/17 20:59 Future Hold 02/24/17 08:23 100 MG Polyethylene (Miralax Powder Packet) 17 gm DAILY PO 02/21/17 09:00 03/23/17 08:59 02/25/17 10:35 17 GM Lactulose (Chronulac Syrup) 30 gm Q6H PO 02/21/17 09:00 03/23/17 08:59 Future Hold 02/24/17 08:23 30 GM Amiodarone HCl (Cordarone Tab) 200 mg BID PO 02/21/17 21:00 03/23/17 20:59 Future Hold 02/25/17 20:56 200 MG Apixaban (Eliquis Tab) 5 mg BID PO 02/21/17 16:00 12/26/17 22:59 Future Hold 02/25/17 20:56 5 MG Acetaminophen (Tylenol Soln) 650 mg Q4H PRN PO 02/22/17 10:00 03/24/17 09:59 02/23/17 08:07 650 MG Hydromorphone HCl (Dilaudid Inj) 1 mg Q4 PRN IV 02/22/17 14:00 03/08/17 13:59 02/26/17 20:31 1 MG Miscellaneous Information (Consult Glycemic Management Pharmacy) 1 ea UD PRN N/A 02/22/17 15:30 03/24/17 15:29 Insulin Aspart (novoLOG ASPART) SLIDING SCALE Q6H SC 02/23/17 18:00 03/25/17 17:59 02/25/17 00:23 7 UNITS Fentanyl Citrate 250 ml @ 0 mls/hr Q0M PRN IV 02/23/17 23:45 03/09/17 23:44 02/24/17 22:25 5 MLS/HR Furosemide 40 mg/ Syringe 4 ml @ 4 mls/min BID IV 02/25/17 21:00 03/27/17 20:59 Future Hold 02/25/17 20:59 4 MLS/MIN Insulin Glargine (Lantus Solostar Pen) Q12H SC 02/25/17 18:00 03/27/17 17:59 02/26/17 05:42 5 UNITS Amiodarone HCL/ Dextrose 200 ml @ 16.7 mls/hr [id number] IV 02/26/17 15:10 03/28/17 15:09 02/26/17 14:39 16.7 MLS/HR Heparin Sodium/ Dextrose 500 ml @ 19 mls/hr Q24H PRN IV 02/26/17 16:15 03/28/17 16:14 02/26/17 17:44 19 MLS/HR I & O: 24-Hour Column 02/27/17 07:59 Intake Total 547 ml Output Total 1150 ml Balance -603 ml Vital Signs: Date Time Temp Pulse Resp B/P (MAP) Pulse Ox O2 Delivery O2 Flow Rate FiO2 02/26/17 22:00 81 20 102/58 (73) 96 Nasal Cannula 6.0 02/26/17 20:00 36.8 83 20 111/63 (79) 98 Nasal Cannula 6.0 02/26/17 20:00 96 Nasal Cannula 6.0 02/26/17 18:00 92 20 103/57 (72) 96 Nasal Cannula 6.0 02/26/17 16:00 37.0 82 20 112/71 (85) 96 Nasal Cannula 6.0 02/26/17 16:00 99 Nasal Cannula 6.0 02/26/17 14:19 87 18 110/66 (81) 96 Nasal Cannula 6.0 02/26/17 12:00 Humidified Air Mask 02/26/17 12:00 84 22 101/64 (76) 96 Humidified Air 9.0 40 Humidified Oxygen 02/26/17 10:00 87 22 106/64 (78) 92 Humidified Air 9.0 Humidified Oxygen 02/26/17 08:00 90 26 112/65 (81) 94 Humidified Air 9.0 Humidified Oxygen 02/26/17 08:00 Humidified Air Mask 02/26/17 07:10 30 02/26/17 05:38 30 02/26/17 05:01 95 109/64 (79) 98 02/26/17 04:01 37.4 97 29 105/72 (83) 92 CPAP 30 02/26/17 04:00 CPAP 30 Mechanical Ventilator 02/26/17 04:00 30 02/26/17 03:01 90 26 104/57 (73) 94 02/26/17 02:30 90 23 93 CPAP 30 02/26/17 02:28 30 02/26/17 02:01 87 23 102/57 (72) 92 02/26/17 01:01 90 29 113/65 (81) 92 02/26/17 00:01 37.5 92 26 104/57 (73) 94 CPAP 30 Mechanical Ventilator 02/25/17 23:59 30 02/25/17 23:59 CPAP 30 Mechanical Ventilator Laboratory Results: Last 24 Hours Test 02/25/17 23:54 02/26/17 00:56 02/26/17 03:27 02/26/17 05:40 Blood Gas Specimen Type ARTERIAL Blood Gas Sample Site L Radial Blood Gas Patient Temperature 37.5 Bedside Blood Gas pH (LAB) 7.46 Bedside Blood Gas pCO2 (LAB) 60 mmHg Bedside Blood Gas pO2 (LAB) 80 mmHg Bedside Blood Gas HCO3 (LAB) 42 meq/L Bedside Blood Gas Total CO2 44 mEq/l Bedside Blood Gas Base Excess (LAB) 19.0 meq/L Bedside Blood Gas O2 Saturation 96.0 % Oxygen Saturation (Pulse Oximetry) 93 % Ran Test PASS Oxygen Delivery Device Ventilator Bedside FiO2 30 % Blood Gas PEEP 5 Blood Gas Pressure Support 8 Bedside Glucose 113 mg/dl 127 mg/dl White Blood Count 9.99 K/uL Red Blood Count 3.96 M/uL Hemoglobin 13.1 g/dL Hematocrit 39.8 % Mean Corpuscular Volume 100.5 fL Mean Corpuscular Hemoglobin 33.1 pg Mean Corpuscular Hemoglobin Concent 32.9 g/dl Platelet Count 213 K/uL Mean Platelet Volume 10.7 fL Neutrophils (%) (Auto) 78.1 % Lymphocytes (%) (Auto) 12.4 % Monocytes (%) (Auto) 7.9 % Eosinophils (%) (Auto) 0.7 % Basophils (%) (Auto) 0.2 % Neutrophils # (Auto) 7.80 K/uL Lymphocytes # (Auto) 1.24 K/uL Monocytes # (Auto) 0.79 K/uL Eosinophils # (Auto) 0.07 K/uL Basophils # (Auto) 0.02 K/uL RDW Standard Deviation 61.0 fL RDW Coefficient of Variation 16.7 % Immature Granulocyte % (Auto) 0.7 % Immature Granulocyte # (Auto) 0.07 K/uL Nucleated RBC Absolute Count (auto) 0.02 K/uL Nucleated Red Blood Cells % 0.2 % Sodium Level 146 mmol/L Potassium Level 4.1 mmol/L Chloride Level 107 mmol/L Carbon Dioxide Level 39 mmol/L Anion Gap 0.0 mmol/L Blood Urea Nitrogen 44 mg/dl Creatinine 1.20 mg/dl Est Creatinine Clear Calc Drug Dose 59.3 ml/min Estimated GFR () 68.6 Estimated GFR (Non- 59.2 BUN/Creatinine Ratio 36.6 Random Glucose 130 mg/dl Calcium Level 8.8 mg/dl Phosphorus Level 3.9 mg/dl Magnesium Level 2.7 mg/dl Vancomycin Level Trough 4.8 mcg/ml Test 02/26/17 05:44 02/26/17 13:33 02/26/17 16:05 02/26/17 17:54 Blood Gas Specimen Type ARTERIAL Blood Gas Sample Site L Radial Blood Gas Patient Temperature 37.4 Bedside Blood Gas pH (LAB) 7.46 Bedside Blood Gas pCO2 (LAB) 61 mmHg Bedside Blood Gas pO2 (LAB) 84 mmHg Bedside Blood Gas HCO3 (LAB) 44 meq/L Bedside Blood Gas Total CO2 45 mEq/l Bedside Blood Gas Base Excess (LAB) 20.0 meq/L Bedside Blood Gas O2 Saturation 96.0 % Oxygen Saturation (Pulse Oximetry) 93 % Ran Test PASS Oxygen Delivery Device Ventilator Bedside FiO2 30 % Blood Gas PEEP 5 Blood Gas Pressure Support 5 Bedside Glucose 115 mg/dl 96 mg/dl White Blood Count 10.88 K/uL Red Blood Count 4.13 M/uL Hemoglobin 13.6 g/dL Hematocrit 42.5 % Mean Corpuscular Volume 102.9 fL Mean Corpuscular Hemoglobin 32.9 pg Mean Corpuscular Hemoglobin Concent 32.0 g/dl Platelet Count 221 K/uL Mean Platelet Volume 11.1 fL Neutrophils (%) (Auto) 81.7 % Lymphocytes (%) (Auto) 11.0 % Monocytes (%) (Auto) 5.9 % Eosinophils (%) (Auto) 0.5 % Basophils (%) (Auto) 0.2 % Neutrophils # (Auto) 8.89 K/uL Lymphocytes # (Auto) 1.20 K/uL Monocytes # (Auto) 0.64 K/uL Eosinophils # (Auto) 0.05 K/uL Basophils # (Auto) 0.02 K/uL RDW Standard Deviation 63.2 fL RDW Coefficient of Variation 16.9 % Immature Granulocyte % (Auto) 0.7 % Immature Granulocyte # (Auto) 0.08 K/uL Prothrombin Time 11.8 SECONDS Prothromb Time International Ratio 1.1 Activated Partial Thromboplast Time 28.3 SECONDS Partial Thromboplastin Ratio 1.1 Test 02/26/17 23:44
[2017-02-27] VITALS (53 sets, daily range): BP systolic 85–126; BP diastolic 49–73; PULSE 69–96; TEMP 36.4–36.9; O2SAT 78–99
[2017-02-27 00:13] LABS: PTT PATIENT 30.5 SECONDS (21.0-31.0)
[2017-02-27] MEDS ORDERED: HEPARIN IV BOLUS 4,500 UNIT in SYRINGE 0 ML IV ONE ×2 (00:45→14:15)
[2017-02-27] MEDS: AMIODARONE / D5W 200 ML IV SCH (02:48)
[2017-02-27 06:00] LABS: HEMATOCRIT 41.9 % (42-52); HEMOGLOBIN 13.2 g/dL (14.0-18.0); MEAN CELL VOLUME 102.4 fL (80-100); MEAN CORPUSCULAR HEMOGLOBIN 32.3 pg (25-34); MEAN CORPUSCULAR HGB CONC 31.5 g/dl (32-36); MEAN PLATELET VOLUME 10.9 fL (7.4-10.4); PLATELET COUNT 216 K/uL (130-400); RED CELL DISTRIBUTION WIDTH CV 16.7 % (11.5-14.5); RED CELL DISTRIBUTION WIDTH SD 62.2 fL (36.4-46.3)
[2017-02-27] MEDS: INSULIN GLARGINE SOLOSTAR 100 UNITS/ML 3 ML PEN SC SCH ×2 (06:00→21:00)
[2017-02-27] MEDS: INSULIN ASPART 100 UNITS/ML 3 ML PEN SC SCH ×5 (06:00→21:00)
[2017-02-27] MEDS: FAMOTIDINE IV INJ 20 MG in SYRINGE 3 ML IV SCH (06:06)
[2017-02-27 06:33] LABS: CALCIUM 8.8 mg/dl (8.5-10.1); CREATININE 1.23 mg/dl (0.60-1.40); POTASSIUM 3.6 mmol/L (3.5-5.1)
[2017-02-27 06:35] LABS: PHOSPHORUS 4.4 mg/dl (2.5-4.9)
[2017-02-27] MEDS ORDERED: HEPARIN IV BOLUS 4,500 UNIT in SYRINGE 0 ML IV SCH (06:45)
[2017-02-27] MEDS: POLYETHYLENE (MIRALAX) 17 GM PACK PO SCH (07:20)
--- NOTE | 2017-02-27 07:50 | DIAGNOSTIC IMAGING REPORT ---
CHEST ONE VIEW PORTABLE HISTORY: 76 years-old Male Recent Resp Failure acute respiratory failure COMPARISON: Chest radiograph 02/26/2017 TECHNIQUE: Portable AP view of the chest FINDINGS: There has been interval extubation along with removal of the enteric tube. Catheter overlying the left lung base may reflect a pleural drainage catheter. Cardiac silhouette is again enlarged. Atherosclerosis of the aorta. Persistent bibasilar opacities are noted with interval development of left perihilar and left upper lobe airspace consolidation. Mild pulmonary vascular congestion. No pneumothorax. Trace left pleural effusion. Bones of the chest appear grossly intact. Moderate subcutaneous emphysema along the right chest wall redemonstrated. Mild left chest wall subcutaneous emphysema. IMPRESSION: 1. Status post extubation with removal of enteric tube. 2. Persistent bibasilar airspace opacities with interval development of left perihilar and left upper lobe airspace consolidation suggesting atelectasis and/or pneumonitis. The above report was generated using voice recognition software. It may contain grammatical, syntax or spelling errors. Electronically signed by: Wellington Mercado M.D. 02/27/2017 7:48 AM Dictated Date/Time: 02/27/2017 7:45 AM
--- NOTE | 2017-02-27 10:39 | Cardiology Follow-Up ---
Subjective Subjective Date of Service: Feb 27, 2017. Pt evaluation today including: conversation w/ patient, conversation w/ family , physical exam, chart review, lab review, review of studies, review of inpatient medication list Additional Details: Pt seen and examined, with family at bedside. No events overnight but patient unable to tolerate taking po currently. Denies cp, sob, palpitations, lightheadedness or dizziness. Tele reviewed: sinus rhythm without arrhythmia or NSVT, occasional PVC single beats Problem List Medical Problems: (1) Elevated troponin Status: Acute (2) Pneumothorax on right Status: Acute (3) Pulmonary edema Status: Acute (4) Rib fractures Status: Acute (5) Ventricular tachycardia Status: Acute Review of Systems Constitutional: No fever, No chills ENT: + sore throat, + trouble swallowing Respiratory: + cough, No wheezing, No shortness of breath, No dyspnea on exertion, No dyspnea at rest, No hemoptysis Cardiac: No chest pain, No edema, No palpitations Objective Vital Signs Last Vital Signs Documentation Date Time Temp Pulse Resp B/P (MAP) Pulse Ox O2 Delivery O2 Flow Rate FiO2 02/27/17 09:01 81 26 105/65 (78) 91 02/27/17 08:01 36.7 Nasal Cannula 4.0 02/26/17 12:00 40 Physical Exam: General Appearance: WD/WN, no apparent distress, + pertinent finding (extubated ; not speaking due to throat pain; difficulty with swallowing) Eyes: bilateral eyes normal inspection, bilateral eyes PERRL, bilateral eyes EOMI ENT: normal ENT inspection, hearing grossly normal Neck: supple, no adenopathy, thyroid normal, no JVD, no carotid bruits, trachea midline Respiratory/Chest: chest non-tender, lungs clear, normal breath sounds, no respiratory distress, no accessory muscle use Cardiovascular: regular rate, rhythm, no edema, no JVD, no murmur, + gallop/S4 Abdomen: normal bowel sounds, soft, no organomegaly, no pulsatile mass Extremities: normal range of motion, non-tender, normal inspection, no pedal edema, no calf tenderness 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 V-tach arrest now extubated no recurrence of NSVT after amio bolus and gtt reinstituted ideally would like to change him to po amio and low dose po metoprolol today but not taking oral for swallow eval today will cont IV amio for now would be concerned for recurrent ventricular arrhythmias should it be stopped for BiV ICD once medically optimized 2. PAF remains in sinus started on Eliquis rate/rhythm control as above plan
[2017-02-27] MEDS: SODIUM CHLOR 0.45% + 20MEQ KCL 1,000 ML IV SCH ×2 (11:09→20:32)
[2017-02-27 12:41] LABS: PTT PATIENT 34.4 SECONDS (21.0-31.0)
[2017-02-27] MEDS: AMIODARONE 200 MG TAB PO SCH ×2 (13:55→20:32)
--- NOTE | 2017-02-27 14:41 | Critical Care Progress Note ---
Critical Care Progress Note Date of Service Feb 27, 2017. ICU Day ICU Day Number: [address] Haque Subjective Significantly improved Objective Neuro alert and oriented Cardiovascular S1-S2 Chest: Improved subcutaneous emphysema Abdomen: Soft nondistended nontender Current SOFA Score SOFA Score Response (Comments) Value SaO2 / FIO2 221 - 301 1 Platelets (x10) > 150 0 Bilirubin (mg/dL) 1.2 - 1.9 1 [place] Coma Score 15 0 Level of Hypotension No Hypotension 0 Creatinine (mg/dL) < 1.2 0 Total 2 Assessment & Plan PLAN: Neuro: Pain controlled Resp: COPD: Continue supplemental oxygen CV: Status post cardiac arrest Nonsustained ventricular tachycardia * Reloaded with amiodarone, continue oral amiodarone * Systemic anticoagulation secondary to low EF * Plan for AICD next Friday Fluids/Renal: Continuing half NS with 20 of K until oral intake picks up Discontinue Weiss can use urinal or possible condom cath ID: Off anti-infectives GI/Nutrition: Passed swallow study, reviewed speech recommendations Heme: Continue eliquis stopping heparin this evening Endocrine: Subcutaneous insulin protocol Patient to remain on telemetry with monitor and pads at all times PT OT consult Stable for downgraded out of the ICU to telemetry status if bed available Consults & Procedures Consultants: cardiology Procedures: Surgical chest tubes 2 both removed Data Medications: Current Inpatient Medications Medications (Trade) Dose Ordered Sig/Shakira Route Start Time Stop Time Status Last Admin Dose Admin Ondansetron HCl (Zofran Inj) 4 mg Q6H PRN IV 02/17/17 02:30 03/19/17 02:29 Artificial Tears (Lacri-Lube Oph Oint) 1 appln Q2H PRN OPB 02/17/17 03:15 03/19/17 03:14 Famotidine 20 mg/ Syringe 5 ml @ 2.5 mls/min Q12H IV 02/17/17 06:00 03/19/17 05:59 02/27/17 06:06 2.5 MLS/MIN Glucose (Glucose 40% Gel) 15-30 GRAMS 15 GRAMS... UD PRN PO 02/17/17 05:15 03/19/17 05:14 Glucose (Glucose Chew Tab) 4-8 Tablets 4 Tabl... UD PRN PO 02/17/17 05:15 1/10/18 05:14 Dextrose (Dextrose 50% 50ML Syringe) 25-50ML OF 50% DW IV FOR... UD PRN IV 02/17/17 05:15 03/19/17 05:14 02/25/17 19:21 25 ML Glucagon (Glucagon Inj) 1 mg UD PRN SQ 02/17/17 05:15 03/19/17 05:14 Dopamine HCl/ Dextrose 250 ml @ 0 mls/hr Q0M PRN IV 02/17/17 16:13 03/19/17 16:12 02/24/17 03:11 17.1 MLS/HR Heparin Sodium (Porcine) (Heparin 10 Unit/ ml 5 ml Flush) 5 ml PRN PRN FLUSH 02/18/17 00:15 03/20/17 00:14 Enteral Nutritional Formula (Impact 1.0 Shyam) 1,000 ml UD OG 02/20/17 09:30 03/22/17 09:29 02/26/17 04:21 1,000 ML Docusate Sodium (coLACE SYRUP) 100 mg BID PO 02/20/17 21:00 03/22/17 20:59 Future Hold 02/24/17 08:23 100 MG Polyethylene (Miralax Powder Packet) 17 gm DAILY PO 02/21/17 09:00 03/23/17 08:59 02/25/17 10:35 17 GM Lactulose (Chronulac Syrup) 30 gm Q6H PO 02/21/17 09:00 03/23/17 08:59 Future Hold 02/24/17 08:23 30 GM Amiodarone HCl (Cordarone Tab) 200 mg BID PO 02/21/17 21:00 03/23/17 20:59 Future hold 02/27/17 13:55 200 MG Apixaban (Eliquis Tab) 5 mg BID PO 02/21/17 16:00 03/04/17 22:59 Future Hold 02/25/17 20:56 5 MG Acetaminophen (Tylenol Soln) 650 mg Q4H PRN PO 02/22/17 10:00 03/24/17 09:59 02/23/17 08:07 650 MG Hydromorphone HCl (Dilaudid Inj) 1 mg Q4 PRN IV 02/22/17 14:00 03/08/17 13:59 02/26/17 20:31 1 MG Miscellaneous Information (Consult Glycemic Management Pharmacy) 1 ea UD PRN N/A 02/22/17 15:30 03/24/17 15:29 Insulin Aspart (novoLOG ASPART) SLIDING SCALE Q6H SC 02/23/17 18:00 18 17:59 02/25/17 00:23 7 UNITS Fentanyl Citrate 250 ml @ 0 mls/hr Q0M PRN IV 02/23/17 23:45 03/09/17 23:44 02/24/17 22:25 5 MLS/HR Furosemide 40 mg/ Syringe 4 ml @ 4 mls/min BID IV 02/25/17 21:00 03/27/17 20:59 Future Hold 02/25/17 20:59 4 MLS/MIN Amiodarone HCL/ Dextrose 200 ml @ 16.7 mls/hr [id number] IV 02/26/17 15:10 02/27/17 15:00 02/27/17 02:48 16.7 MLS/HR Heparin Sodium/ Dextrose 500 ml @ 28 mls/hr [id number] PRN IV 02/26/17 16:15 03/28/17 16:14 02/26/17 17:44 19 MLS/HR Potassium Chloride/Sodium Chloride 1,000 ml @ 100 mls/hr Q10H IV 02/27/17 09:30 03/29/17 09:29 02/27/17 11:09 100 MLS/HR Heparin Sodium (Porcine) 4500 unit/Syringe 4.5 ml @ 10 mls/min NOW ONCE IV 02/27/17 14:15 02/27/17 14:16 I & O: 24-Hour Column 02/28/17 07:59 Intake Total 717 ml Output Total 350 ml Balance 367 ml Vital Signs: Date Time Temp Pulse Resp B/P (MAP) Pulse Ox O2 Delivery O2 Flow Rate FiO2 02/27/17 12:00 87 16 94 Nasal Cannula 4.0 02/27/17 11:30 Nasal Cannula 4.0 02/27/17 11:30 36.7 84 14 96 02/27/17 11:00 80 18 94 02/27/17 10:43 80 23 106/49 (68) 91 02/27/17 10:39 76 28 110/60 (77) 92 02/27/17 10:35 83 36 108/60 (76) 94 02/27/17 10:30 86 27 95 02/27/17 10:29 81 25 114/62 (79) 95 02/27/17 10:01 83 27 104/65 (78) 89 02/27/17 10:00 84 25 91 02/27/17 09:01 81 26 105/65 (78) 91 02/27/17 09:00 85 27 92 02/27/17 08:01 36.7 80 24 107/61 (76) 92 Nasal Cannula 4.0 02/27/17 08:00 Nasal Cannula 6.0 02/27/17 08:00 82 25 91 02/27/17 07:01 83 26 116/62 (80) 91 02/27/17 07:00 81 26 91 02/27/17 06:01 77 28 100/57 (71) 96 Nasal Cannula 6.0 02/27/17 05:01 81 25 104/58 (73) 91 Nasal Cannula 6.0 02/27/17 04:01 36.9 79 23 105/57 (73) 93 Nasal Cannula 6.0 02/27/17 04:00 Nasal Cannula 6.0 02/27/17 02:01 78 25 97/55 (69) 94 Nasal Cannula 6.0 02/27/17 01:01 76 23 102/58 (73) 90 Nasal Cannula 6.0 02/27/17 00:01 36.7 78 21 116/62 (80) 96 Nasal Cannula 6.0 02/27/17 00:00 Nasal Cannula 6.0 02/26/17 22:00 81 20 102/58 (73) 96 Nasal Cannula 6.0 02/26/17 20:00 36.8 83 20 111/63 (79) 98 Nasal Cannula 6.0 02/26/17 20:00 96 Nasal Cannula 6.0 02/26/17 18:00 92 20 103/57 (72) 96 Nasal Cannula 6.0 02/26/17 16:00 37.0 82 20 112/71 (85) 96 Nasal Cannula 6.0 02/26/17 16:00 99 Nasal Cannula 6.0 02/26/17 14:19 87 18 110/66 (81) 96 Nasal Cannula 6.0 Laboratory Results: Last 24 Hours Test 02/26/17 16:05 02/26/17 17:54 02/26/17 23:44 02/26/17 23:53 White Blood Count 10.88 K/uL Red Blood Count 4.13 M/uL Hemoglobin 13.6 g/dL Hematocrit 42.5 % Mean Corpuscular Volume 102.9 fL Mean Corpuscular Hemoglobin 32.9 pg Mean Corpuscular Hemoglobin Concent 32.0 g/dl Platelet Count 221 K/uL Mean Platelet Volume 11.1 fL Neutrophils (%) (Auto) 81.7 % Lymphocytes (%) (Auto) 11.0 % Monocytes (%) (Auto) 5.9 % Eosinophils (%) (Auto) 0.5 % Basophils (%) (Auto) 0.2 % Neutrophils # (Auto) 8.89 K/uL Lymphocytes # (Auto) 1.20 K/uL Monocytes # (Auto) 0.64 K/uL Eosinophils # (Auto) 0.05 K/uL Basophils # (Auto) 0.02 K/uL RDW Standard Deviation 63.2 fL RDW Coefficient of Variation 16.9 % Immature Granulocyte % (Auto) 0.7 % Immature Granulocyte # (Auto) 0.08 K/uL Prothrombin Time 11.8 SECONDS Prothromb Time International Ratio 1.1 Activated Partial Thromboplast Time 28.3 SECONDS 30.5 SECONDS Partial Thromboplastin Ratio 1.1 1.2 Bedside Glucose 96 mg/dl 105 mg/dl Test 02/27/17 05:40 02/27/17 06:01 02/27/17 11:15 02/27/17 12:15 White Blood Count 8.40 K/uL Red Blood Count 4.09 M/uL Hemoglobin 13.2 g/dL Hematocrit 41.9 % Mean Corpuscular Volume 102.4 fL Mean Corpuscular Hemoglobin 32.3 pg Mean Corpuscular Hemoglobin Concent 31.5 g/dl RDW Standard Deviation 62.2 fL RDW Coefficient of Variation 16.7 % Platelet Count 216 K/uL Mean Platelet Volume 10.9 fL Activated Partial Thromboplast Time 39.0 SECONDS 34.4 SECONDS Partial Thromboplastin Ratio 1.5 1.3 Sodium Level 147 mmol/L Potassium Level 3.6 mmol/L Chloride Level 109 mmol/L Carbon Dioxide Level 35 mmol/L Anion Gap 3.0 mmol/L Blood Urea Nitrogen 44 mg/dl Creatinine 1.23 mg/dl Est Creatinine Clear Calc Drug Dose 52.8 ml/min Estimated GFR () 66.6 Estimated GFR (Non- 57.5 BUN/Creatinine Ratio 35.7 Random Glucose 116 mg/dl Calcium Level 8.8 mg/dl Phosphorus Level 4.4 mg/dl Magnesium Level 2.8 mg/dl Bedside Glucose 109 mg/dl 149 mg/dl
--- NOTE | 2017-02-27 14:52 | Pharmacy Progress Note ---
Glycemic: Assessment & Plan Date of Service Feb 27, 2017. Assessment & Plan Assessment * The patient is currently receiving 5 units of insulin per day, all basal/ Lantus. BSGs ranging 96 - 149 mg/dl over the past 24hrs. * Will hold Lantus for now as some BSG's below goal. Will only give if BSG's rise above 180 mg/dL * Tube feed rate variable, but Novolog written to cover CHO based on rate. No change needed. Plan * Basal insulin: Lantus 5 units SC qPM (hold if BSG < 180 mg/dL) * Correctional Insulin: Novolog Correction per scale ACHS Goal Range: Low 120 mg/dL - High 160 mg/dL Correction Factor: 25 mg/dL/unit * Prandial insulin: Per carb ratio of 1 unit per 10 grams CHO consumed Pharmacy will continue to monitor patient daily and write orders per [facility] inpatient glycemic control protocol. Thanks. * Please note that the plan above was derived based on current level of insulin resistance and hospital stress. These recommendations are appropriate for inpatient admission only. Plan of care upon discharge will need to be reassessed to avoid potential outpatient hypo/hyperglycemia.
[2017-02-27] MEDS ORDERED: NURSING VERBAL MED ORDER ONE (17:00)
[2017-02-27] MEDS: APIXABAN 2.5 MG TAB PO SCH (17:19)
--- NOTE | 2017-02-27 18:47 | Progress Note ---
Subjective Date of Service: Feb 27, 2017. Subjective Pt evaluation today including: conversation w/ patient, physical exam, lab review, review of studies, review of inpatient medication list Saw/examined the patient in room 110 He is doing well today; amio and heparin drip stopped His catheter was removed and he is now ambulating well passed speech evaluation Difficulty speaking Problem List Medical Problems: (1) Elevated troponin Status: Acute (2) Pneumothorax on right Status: Acute (3) Pulmonary edema Status: Acute (4) Rib fractures Status: Acute (5) Ventricular tachycardia Status: Acute Review of Systems Constitutional: No fever, No chills Respiratory: No cough, No sputum, No wheezing, No shortness of breath, No dyspnea on exertion, No dyspnea at rest, No hemoptysis Cardiac: + problem reported (chest wall tenderness), No chest pain, No edema, No palpitations Abdomen: No pain, No nausea, No vomiting, No diarrhea, No constipation Medications Current Inpatient Medications Medications (Trade) Dose Ordered Sig/Shakira Route Start Time Stop Time Status Last Admin Dose Admin Ondansetron HCl (Zofran Inj) 4 mg Q6H PRN IV 02/17/17 02:30 03/19/17 02:29 Artificial Tears (Lacri-Lube Oph Oint) 1 appln Q2H PRN OPB 02/17/17 03:15 03/19/17 03:14 Glucose (Glucose 40% Gel) 15-30 GRAMS 15 GRAMS... UD PRN PO 02/17/17 05:15 03/19/17 05:14 Glucose (Glucose Chew Tab) 4-8 Tablets 4 Tabl... UD PRN PO 02/17/17 05:15 03/19/17 05:14 Dextrose (Dextrose 50% 50ML Syringe) 25-50ML OF 50% DW IV FOR... UD PRN IV 02/17/17 05:15 03/19/17 05:14 02/25/17 19:21 25 ML Glucagon (Glucagon Inj) 1 mg UD PRN SQ 02/17/17 05:15 03/19/17 05:14 Heparin Sodium (Porcine) (Heparin 10 Unit/ ml 5 ml Flush) 5 ml PRN PRN FLUSH 02/18/17 00:15 03/20/17 00:14 Docusate Sodium (coLACE SYRUP) 100 mg BID PO 02/20/17 21:00 03/22/17 20:59 Future Hold 02/24/17 08:23 100 MG Polyethylene (Miralax Powder Packet) 17 gm DAILY PO 02/21/17 09:00 03/23/17 08:59 02/25/17 10:35 17 GM Amiodarone HCl (Cordarone Tab) 200 mg BID PO 02/21/17 21:00 03/23/17 20:59 Future hold 02/27/17 13:55 200 MG Acetaminophen (Tylenol Soln) 650 mg Q4H PRN PO 02/22/17 10:00 03/24/17 09:59 02/23/17 08:07 650 MG Hydromorphone HCl (Dilaudid Inj) 1 mg Q4 PRN IV 02/22/17 14:00 03/08/17 13:59 02/26/17 20:31 1 MG Miscellaneous Information (Consult Glycemic Management Pharmacy) 1 ea UD PRN N/A 02/22/17 15:30 03/24/17 15:29 Fentanyl Citrate 250 ml @ 0 mls/hr Q0M PRN IV 02/23/17 23:45 03/09/17 23:44 02/24/17 22:25 5 MLS/HR Potassium Chloride/Sodium Chloride 1,000 ml @ 100 mls/hr Q10H IV 02/27/17 09:30 03/29/17 09:29 02/27/17 11:09 100 MLS/HR Pantoprazole Sodium (Protonix Tab) 40 mg QAM PO 02/28/17 09:00 03/30/17 08:59 Insulin Glargine (Lantus Solostar Pen) QPM SC 02/27/17 21:00 03/29/17 20:59 Apixaban (Eliquis Tab) 5 mg BID PO 02/27/17 18:00 03/29/17 17:59 02/27/17 17:19 5 MG Insulin Aspart (novoLOG ASPART) SLIDING SCALE ACHS SC 02/27/17 21:00 03/29/17 20:59 Objective Vital Signs Date Time Temp Pulse Resp B/P (MAP) Pulse Ox O2 Delivery O2 Flow Rate FiO2 02/27/17 17:30 83 34 91 Nasal Cannula 2.0 02/27/17 17:18 81 39 119/63 (81) 98 02/27/17 17:15 79 21 99 02/27/17 17:01 77 15 85/73 (77) 99 Nasal Cannula 2.0 02/27/17 17:00 81 14 99 02/27/17 16:45 81 15 99 02/27/17 16:30 87 15 97 02/27/17 16:15 79 12 97 02/27/17 16:01 70 26 101/55 (70) 96 Nasal Cannula 2.0 02/27/17 16:00 78 7 96 02/27/17 15:45 78 14 96 02/27/17 15:30 71 21 94 Nasal Cannula 2.0 02/27/17 15:15 77 16 96 02/27/17 15:10 Nasal Cannula 4.0 02/27/17 15:04 36.6 81 18 119/66 (83) 98 Nasal Cannula 4.0 02/27/17 15:00 96 30 02/27/17 14:45 83 32 95 02/27/17 14:30 81 25 95 02/27/17 14:15 80 27 93 02/27/17 14:01 82 26 123/70 (87) 93 02/27/17 14:00 84 28 93 02/27/17 13:30 85 38 94 02/27/17 13:01 83 24 108/61 (77) 90 02/27/17 13:00 83 24 90 02/27/17 12:00 87 16 94 Nasal Cannula 4.0 02/27/17 11:30 Nasal Cannula 4.0 02/27/17 11:30 36.7 84 14 96 02/27/17 11:00 80 18 94 02/27/17 10:43 80 23 106/49 (68) 91 02/27/17 10:39 76 28 110/60 (77) 92 02/27/17 10:35 83 36 108/60 (76) 94 02/27/17 10:30 86 27 95 02/27/17 10:29 81 25 114/62 (79) 95 02/27/17 10:01 83 27 104/65 (78) 89 02/27/17 10:00 84 25 91 02/27/17 09:01 81 26 105/65 (78) 91 02/27/17 09:00 85 27 92 02/27/17 08:01 36.7 80 24 107/61 (76) 92 Nasal Cannula 4.0 02/27/17 08:00 Nasal Cannula 6.0 02/27/17 08:00 82 25 91 02/27/17 07:01 83 26 116/62 (80) 91 02/27/17 07:00 81 26 91 02/27/17 06:01 77 28 100/57 (71) 96 Nasal Cannula 6.0 02/27/17 05:01 81 25 104/58 (73) 91 Nasal Cannula 6.0 02/27/17 04:01 36.9 79 23 105/57 (73) 93 Nasal Cannula 6.0 02/27/17 04:00 Nasal Cannula 6.0 02/27/17 02:01 78 25 97/55 (69) 94 Nasal Cannula 6.0 02/27/17 01:01 76 23 102/58 (73) 90 Nasal Cannula 6.0 02/27/17 00:01 36.7 78 21 116/62 (80) 96 Nasal Cannula 6.0 02/27/17 00:00 Nasal Cannula 6.0 02/26/17 22:00 81 20 102/58 (73) 96 Nasal Cannula 6.0 02/26/17 20:00 36.8 83 20 111/63 (79) 98 Nasal Cannula 6.0 02/26/17 20:00 96 Nasal Cannula 6.0 Physical Exam General Appearance: no apparent distress Respiratory/Chest: no respiratory distress, no accessory muscle use, + pertinent finding (+R sided chest wall tenderness) Cardiovascular: regular rate, rhythm, no edema, no murmur Extremities: normal range of motion, non-tender, normal inspection, no pedal edema, no calf tenderness, + pertinent finding (SCDs in place) Neurologic/Psychiatric: no motor/sensory deficits, alert, oriented x 3, + pertinent finding (difficulty speaking; whispers) Laboratory Results Last 24 Hours Test 02/26/17 23:44 02/26/17 23:53 02/27/17 05:40 02/27/17 06:01 Activated Partial Thromboplast Time 30.5 SECONDS 39.0 SECONDS Partial Thromboplastin Ratio 1.2 1.5 Bedside Glucose 105 mg/dl 109 mg/dl White Blood Count 8.40 K/uL Red Blood Count 4.09 M/uL Hemoglobin 13.2 g/dL Hematocrit 41.9 % Mean Corpuscular Volume 102.4 fL Mean Corpuscular Hemoglobin 32.3 pg Mean Corpuscular Hemoglobin Concent 31.5 g/dl RDW Standard Deviation 62.2 fL RDW Coefficient of Variation 16.7 % Platelet Count 216 K/uL Mean Platelet Volume 10.9 fL Sodium Level 147 mmol/L Potassium Level 3.6 mmol/L Chloride Level 109 mmol/L Carbon Dioxide Level 35 mmol/L Anion Gap 3.0 mmol/L Blood Urea Nitrogen 44 mg/dl Creatinine 1.23 mg/dl Est Creatinine Clear Calc Drug Dose 52.8 ml/min Estimated GFR () 66.6 Estimated GFR (Non- 57.5 BUN/Creatinine Ratio 35.7 Random Glucose 116 mg/dl Calcium Level 8.8 mg/dl Phosphorus Level 4.4 mg/dl Magnesium Level 2.8 mg/dl Test 02/27/17 11:15 02/27/17 12:15 Bedside Glucose 149 mg/dl Activated Partial Thromboplast Time 34.4 SECONDS Partial Thromboplastin Ratio 1.3 Assessment and Plan VTACH CARDIAC ARREST : 02/27 amiodarone drip stopped; PO amio started IV heparin stopped; Eliquis started should be started on a b-jeffry if blood pressure allows will await further recs by cardiology will transfer to ICU to tele 02/26 extubated amiodarone drip being started heparin drip being started b-jeffry to be restarted in 24hrs as per cardiology 02/25 doing well, intubated, but requiring less ventilation as per residential sales representative - possible extubation in AM 02/24 on CPAP trial cont daily weaning protocol once extubated , will need to be evaluated for AICD placement Cardiology following 02/23/17 : unable to tolerate CPAP trial cont daily weaning protocol neurologically much improved , awake and alert , following commands 02/22/17: remains intubated , failed CPAP trial today CXray no pneumothorax noted ,satisfactory line placement -rt jugular CVP terminates at the brachiocephalic /SVC junction rt sided pleural catheter unchanged position mild central pulmonary congestion ordered 40 mg IV Lasix by Dr Porras on Amiodarone 200 mg VIA OG tube BID on Dopamine gtt Lopressor not initiated due to hypotensive Cardiology following 02/21/17 : remains intubated , off pressors on Amiodarone 200 mg per G-tube twice a day. IV heparin D/yaima on Eliquis 5 mg BID via G tube appreciate input form Cardiology and Ring Packer 02/20 : remains intubated continued CPAP trial 02/19/17 : taken off Hypothermic protocol , Body core temp at normal 37.5 started to wean off sedation ( required large amount of sedation : Fentanyl @ 200 mcq, Versed @ 10mg/h ) cont CPAP trial appreciate input /help from Ring Packer rt sided Chest tube remains in air seal converted to sinus rhythm /rate controlled @ 60's , on Amiodarone gtt improved Qtc on IV Heparin gtt on Dobutamine and Levophed gtt if pt able to recover enough to be extubated without neurological deficit will benefit with AICD placement during this hospital cardiology following 02/18/2017: HX of CAD with ischemic cardiomyopathy , 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 developed pneumothorax with extensive Rt sided sub q emphysema due to CPR Cxray shows 02/16/17 : Rt sided pneumothorax with max pleural separation of 1.4 cm s/p rt right chest tube placement while in ICU , cardiac rhythm changed to Afib on amiodarone gtt /IV heparin started due arrhythmia -Afib appreciate input form Cardiology warming process started this morning appreciate help and input form the residential sales representative if pt is able to recover with adequate neurological capacity will need AICD placement COPD and chronic respiratory failure underlying COPD (smoked 1PPD for around 60 years) on chronic O2 at home - around 2L chronically will need O2 on discharge will need nebulizer machine and meds on discharge should have inhaler on discharge as well GERD/Hiatal Hernia continue Protonix AFIB : Amiodarone + Eliquis paroxysmal Afib due to cardiogenic shock / hypoxia on Amiodarone 200 mg BID via OG tube Eliquis 5 mg BID via OG tube ACUTE CVA : 02/25 cont. Eliquis for now MRI of brain 02/21/17 Findings concerning for a punctate focus of ischemia at the junction of the right inferior jeannie and medulla. This may represent a small lacunar infarct versus a punctate embolic infarct. No evidence of anoxic brain injury. possible cardiogenic emboli /pt been started on IV heparin since admission -pt is on Eliquis via NG tube neurology following pt is showing good prognosis factor with improve neurological alertness continue weaning protocol from vent will need life long anticoagulation ELEVATED TROPONIN : low LVEF at around 25-30% pt. with v-tach and cardiac arrest on admission due to Vtach cardiac arrest /aggressive CPR doubt due to acute HI /atherothrombotic plaque rupture Kris 0.40-> 10-> 11-> 8.4 ECHO 02/16/17 : thinning and scar of the inferior base, posterior and inferolateral ye. Septal motion is consistent with conduction abnormality. moderate apical wall hypokinesis. inferior wall akinesis. posterior wall akinesis. Ejection Fraction = 25-30%. ECHO unchanged from prior study on 12/2016 Cardiology following closely ROBERTO ON CKD STAGE 3 : resolved , Cr improved 1.06 due to Cardiac arrest /hypoperfusion of organs TYPE 2 DM : on Insulin gtt pharmacy following for glycemic management LACTIC ACIDOSIS : resolved Lactic acid 1.2 -after adequate tissue perfusion establish with Hypothermic protocol /pressors lactic acid was > 2 , with out any evidence of infection or sepsis due to Cardiogenic shock /organ /tissue hypoperfusion Supportive care provided with IV pressors /Hypothermic protocol DVT PROPHYLAXIS Eliquis DNR /DNI DISPOSITION remains critically ill in ICU
[2017-02-27] MEDS: ALBUT/IPRATROP 3MG/0.5MG NEB 3 ML VIAL INH SCH (20:22)
--- NOTE | 2017-02-27 21:11 | DIAGNOSTIC IMAGING REPORT ---
CHEST ONE VIEW PORTABLE HISTORY: Increased O2 Requirement COMPARISON: Chest 02/27/2017. FINDINGS: The heart remains mildly enlarged. No pneumothorax.. Right chest wall subcutaneous emphysema persists. Diffuse interstitial vascular thickening has slightly improved. This is consistent with resolving pulmonary edema. No new focal lung consolidations. Suspect trace bilateral pleural effusions. IMPRESSION: 1. Mild interstitial pulmonary edema which has slightly improved. 2. Trace bilateral pleural effusions persist. Electronically signed by: Akash Morocho M.D. 02/27/2017 9:10 PM Dictated Date/Time: 02/27/2017 9:08 PM
[2017-02-28] VITALS (10 sets, daily range): BP systolic 93–114; BP diastolic 45–70; PULSE 67–79; TEMP 36.4–36.8; O2SAT 93–98
[2017-02-28 05:52] LABS: HEMATOCRIT 38.9 % (42-52)
[2017-02-28 06:26] LABS: CALCIUM 8.2 mg/dl (8.5-10.1); CREATININE 1.3 mg/dl (0.60-1.40); POTASSIUM 3.8 mmol/L (3.5-5.1)
[2017-02-28 06:28] LABS: PHOSPHORUS 3.3 mg/dl (2.5-4.9)
[2017-02-28] MEDS: ALBUT/IPRATROP 3MG/0.5MG NEB 3 ML VIAL INH SCH ×4 (07:04→19:06)
[2017-02-28] MEDS: SODIUM CHLOR 0.45% + 20MEQ KCL 1,000 ML IV SCH ×2 (07:08→18:15)
[2017-02-28] MEDS ORDERED: INSULIN GLARGINE SOLOSTAR 100 UNITS/ML 3 ML PEN SC ONE (08:00)
[2017-02-28] MEDS: POLYETHYLENE (MIRALAX) 17 GM PACK PO SCH (08:23)
[2017-02-28] MEDS: AMIODARONE 200 MG TAB PO SCH ×2 (08:24→20:36)
[2017-02-28] MEDS: APIXABAN 2.5 MG TAB PO SCH ×2 (08:24→20:35)
[2017-02-28] MEDS: PANTOprazole SOD 40 MG TAB PO SCH (08:24)
[2017-02-28] MEDS: INSULIN ASPART 100 UNITS/ML 3 ML PEN SC SCH ×4 (08:55→20:39)
[2017-02-28] MEDS ORDERED: METOPROLOL TARTRATE 25 MG TAB PO ONE (09:45)
--- NOTE | 2017-02-28 11:35 | Pharmacy Progress Note ---
Glycemic Control Progress Note Date of Service Feb 28, 2017. Scope Glycemic Pharmacist consulted for glycemic control to write orders per [facility] inpatient glycemic control protocol. Objective Accuchecks BSG (last 24hrs): Test 02/27/17 17:24 02/27/17 21:04 02/28/17 05:26 02/28/17 06:40 Bedside Glucose 225 mg/dl (70-99) 121 mg/dl (70-99) 119 mg/dl (70-99) Random Glucose 141 mg/dl (70-99) HbA1c: Test 02/18/17 04:07 Hemoglobin A1c 6.9 % (4.5-5.6) H Recent Pertinent Medications The patient is currently receiving: * Basal insulin: Lantus 0-5 units every 12 hours * Correctional Insulin: Novolog Correction per scale Q6H Goal Range: Low 120 mg/dL - High 160 mg/dL Correction Factor: 25 mg/dL/unit * Prandial insulin: 1 unit insulin for every 10 g CHO Outpatient Anti-Diabetic Meds None Assessment & Plan ASSESSMENT: 02/28/17 * BSG's ranging 119-225 mg/dL over the last 24 hours * Tubefeeds discontinued yesterday. Patient now ordered a diet - consumed 62 g CHO at breakfast this AM. BSG increased slightly for breakfast to lunch, but still in goal range. Continue Novolog as-is. * AM fasting BSG 119 mg/dL. OK to continue low dose Lantus. PLAN FOR INPATIENT GLYCEMIC CONTROL: * Basal insulin - Lantus 5 units x1 this AM then SC BID * 0 units for BSG < 160 mg/dL * 5 units for BSG >= 160 mg/dL * Bolus insulin * NovoLog per scale ACHS * Goal Range: Low 120 mg/dL - High 160 mg/dL * Correction Factor: 25 mg/dL/unit * Nutritional / Prandial insulin per carb ratio of 1 unit per 10 grams CHO consumed * Please note that the plan above was derived based on current level of insulin resistance and hospital stress. These recommendations are appropriate for inpatient admission only. Plan of care upon discharge will need to be reassessed to avoid potential outpatient hypo/hyperglycemia. Thank you.
--- NOTE | 2017-02-28 12:43 | Cardiology Follow-Up ---
Subjective Subjective Date of Service: Feb 28, 2017. Pt evaluation today including: conversation w/ patient, physical exam, chart review, lab review, review of studies, review of inpatient medication list Additional Details: Pt seen and examined, voice is more hoarse today. Did have difficulty swallowing earlier today, diet changed. Denies cp, sob, palpitations, lightheadedness or dizziness. Tele reviewed: sinus rhythm with a 5 beat tom of NSVT, no sustained arrhythmias. Problem List Medical Problems: (1) Elevated troponin Status: Acute (2) Pneumothorax on right Status: Acute (3) Pulmonary edema Status: Acute (4) Rib fractures Status: Acute (5) Ventricular tachycardia Status: Acute Review of Systems Constitutional: No fever, No chills ENT: + sore throat, + trouble swallowing Respiratory: No cough, No sputum, No wheezing, No shortness of breath, No dyspnea on exertion, No dyspnea at rest, No hemoptysis Cardiac: + problem reported (chest wall tenderness), No chest pain, No edema, No palpitations Abdomen: No pain, No nausea, No vomiting, No diarrhea, No constipation Objective Vital Signs Last Vital Signs Documentation Date Time Temp Pulse Resp B/P (MAP) Pulse Ox O2 Delivery O2 Flow Rate FiO2 02/28/17 08:00 Oxymask 6.0 02/28/17 07:30 36.4 72 20 94/52 (66) 93 02/26/17 12:00 40 Physical Exam: General Appearance: no apparent distress Eyes: bilateral eyes normal inspection, bilateral eyes PERRL, bilateral eyes EOMI ENT: normal ENT inspection, hearing grossly normal Neck: supple, no adenopathy, thyroid normal, no JVD, no carotid bruits, trachea midline Respiratory/Chest: no respiratory distress, no accessory muscle use, + pertinent finding (+R sided chest wall tenderness) Cardiovascular: regular rate, rhythm, no edema, no murmur Abdomen: normal bowel sounds, soft, no organomegaly, no pulsatile mass Extremities: normal range of motion, non-tender, normal inspection, no pedal edema, no calf tenderness, + pertinent finding (SCDs in place) Neurologic/Psychiatric: no motor/sensory deficits, alert, oriented x 3, + pertinent finding (difficulty speaking; whispers) Skin: normal color, warm/dry, no rash Lymphatic: no adenopathy Assessment and Plan 1. V-tach arrest now extubated short tom of NSVT this AM, no sustained arrhythmias did receive po amio this AM metoprolol ordered but unable to give with swallowing difficulties this AM, now held due to relative hypotension follow bp and give metoprolol as it allows will also give some po potassium now for BiV ICD once medically optimized 2. PAF remains in sinus started on Eliquis rate/rhythm control as above plan
[2017-02-28] MEDS ORDERED: POTASSIUM CHLORIDE PWD 20 MEQ PACK PO ONE (12:45)
--- NOTE | 2017-02-28 12:57 | DIAGNOSTIC IMAGING REPORT ---
VIDEO SWALLOW CLINICAL HISTORY: 76 years-old Male with assess for aspiration, please schedule per order. Possible aspiration status post cardiac arrest TECHNIQUE: Video fluoroscopic evaluation of swallowing was performed in the AP and lateral projections by the speech pathology staff. The patient is fed nectar-thick and thin liquid barium, a barium coated wafer, and barium pudding. FLUOROSCOPY TIME: 2.4 minutes. COMPARISON STUDY: Chest radiograph 02/27/2017. FINDINGS: Significant aspiration noted with thin and nectar thick liquids. Oral phase of swallowing is mildly delayed. Swallowing was otherwise within normal limits. Degenerative changes of the cervical spine incidentally noted. IMPRESSION: 1. Aspiration with thin and nectar thick liquids. 2. Please see the speech pathologist report for detailed findings and recommendations. Electronically signed by: Wellington Mercado M.D. 02/28/2017 12:56 PM Dictated Date/Time: 02/28/2017 12:53 PM
--- NOTE | 2017-02-28 18:01 | Progress Note ---
Subjective Date of Service: Feb 28, 2017. Subjective Pt evaluation today including: conversation w/ patient, physical exam, lab review, review of studies, review of inpatient medication list Saw/examined the patient in room 204 He's doing okay, seated in a chair speech slightly improved coughing after drinking liquids Problem List Medical Problems: (1) Elevated troponin Status: Acute (2) Pneumothorax on right Status: Acute (3) Pulmonary edema Status: Acute (4) Rib fractures Status: Acute (5) Ventricular tachycardia Status: Acute Review of Systems Constitutional: No fever, No chills Respiratory: No cough, No sputum, No wheezing, No shortness of breath, No dyspnea on exertion, No dyspnea at rest, No hemoptysis Cardiac: No chest pain, No edema, No palpitations Medications Current Inpatient Medications Medications (Trade) Dose Ordered Sig/Shakira Route Start Time Stop Time Status Last Admin Dose Admin Ondansetron HCl (Zofran Inj) 4 mg Q6H PRN IV 02/17/17 02:30 03/19/17 02:29 Artificial Tears (Lacri-Lube Oph Oint) 1 appln Q2H PRN OPB 02/17/17 03:15 03/19/17 03:14 Glucose (Glucose 40% Gel) 15-30 GRAMS 15 GRAMS... UD PRN PO 02/17/17 05:15 03/19/17 05:14 Glucose (Glucose Chew Tab) 4-8 Tablets 4 Tabl... UD PRN PO 02/17/17 05:15 03/19/17 05:14 Dextrose (Dextrose 50% 50ML Syringe) 25-50ML OF 50% DW IV FOR... UD PRN IV 02/17/17 05:15 03/19/17 05:14 02/25/17 19:21 25 ML Glucagon (Glucagon Inj) 1 mg UD PRN SQ 02/17/17 05:15 03/19/17 05:14 Heparin Sodium (Porcine) (Heparin 10 Unit/ ml 5 ml Flush) 5 ml PRN PRN FLUSH 02/18/17 00:15 03/20/17 00:14 Docusate Sodium (coLACE SYRUP) 100 mg BID PO 02/20/17 21:00 03/22/17 20:59 Future Hold 02/24/17 08:23 100 MG Polyethylene (Miralax Powder Packet) 17 gm DAILY PO 02/21/17 09:00 03/23/17 08:59 02/25/17 10:35 17 GM Amiodarone HCl (Cordarone Tab) 200 mg BID PO 02/21/17 21:00 03/23/17 20:59 Future hold 02/28/17 08:24 200 MG Acetaminophen (Tylenol Soln) 650 mg Q4H PRN PO 02/22/17 10:00 03/24/17 09:59 02/23/17 08:07 650 MG Hydromorphone HCl (Dilaudid Inj) 1 mg Q4 PRN IV 02/22/17 14:00 03/08/17 13:59 02/26/17 20:31 1 MG Miscellaneous Information (Consult Glycemic Management Pharmacy) 1 ea UD PRN N/A 02/22/17 15:30 03/24/17 15:29 Fentanyl Citrate 250 ml @ 0 mls/hr Q0M PRN IV 02/23/17 23:45 03/09/17 23:44 02/24/17 22:25 5 MLS/HR Potassium Chloride/Sodium Chloride 1,000 ml @ 100 mls/hr Q10H IV 02/27/17 09:30 03/29/17 09:29 02/28/17 07:08 100 MLS/HR Pantoprazole Sodium (Protonix Tab) 40 mg QAM PO 02/28/17 09:00 03/30/17 08:59 02/28/17 08:24 40 MG Insulin Glargine (Lantus Solostar Pen) QPM SC 02/27/17 21:00 03/29/17 20:59 Apixaban (Eliquis Tab) 5 mg BID PO 02/27/17 18:00 03/29/17 17:59 02/28/17 08:24 5 MG Insulin Aspart (novoLOG ASPART) SLIDING SCALE ACHS SC 02/27/17 21:00 03/29/17 20:59 02/28/17 16:45 4 UNITS Albuterol/ Ipratropium (Duoneb) 3 ml QIDR INH 02/28/17 08:00 03/30/17 07:59 02/28/17 15:05 3 ML Metoprolol Tartrate (Lopressor Tab) 12.5 mg BID PO 02/28/17 21:00 03/30/17 20:59 Objective Vital Signs Date Time Temp Pulse Resp B/P (MAP) Pulse Ox O2 Delivery O2 Flow Rate FiO2 02/28/17 16:00 Nasal Cannula 4.0 02/28/17 15:53 71 18 93/45 (61) 96 Nasal Cannula 4.0 02/28/17 15:05 77 22 96 Nasal Cannula 4.0 02/28/17 13:23 98/59 (72) 02/28/17 12:00 Oxymask 6.0 02/28/17 11:38 36.6 77 26 95/70 (78) 98 Oxymask 6.0 02/28/17 08:00 Oxymask 6.0 02/28/17 07:30 36.4 72 20 94/52 (66) 93 Nasal Cannula 6.0 02/28/17 07:04 72 22 96 Mask 6.0 02/28/17 04:00 Oxymask 4.0 02/28/17 03:57 36.4 79 24 114/60 (78) 96 Oxymask 4.0 02/27/17 23:59 Oxymask 4.0 02/27/17 23:55 36.4 83 25 112/67 (82) 96 Oxymask 4.0 02/27/17 22:00 36.9 80 20 101/55 (70) 94 Oxymask 6.0 02/27/17 20:20 99 Oxymask 6.0 02/27/17 20:20 83 22 93 Nasal Cannula 6.0 02/27/17 20:10 91 Nasal Cannula 6.0 02/27/17 20:05 82 23 114/64 (81) 91 Nasal Cannula 6.0 Oxymask 02/27/17 20:00 Nasal Cannula 6.0 02/27/17 20:00 69 84 Nasal Cannula 2.0 02/27/17 19:50 73 78 Nasal Cannula 2.0 02/27/17 19:01 79 30 126/64 (84) 93 Nasal Cannula 2.0 Physical Exam General Appearance: no apparent distress Respiratory/Chest: no respiratory distress, no accessory muscle use, + rhonchi Cardiovascular: regular rate, rhythm, no edema, no murmur Extremities: normal inspection, no pedal edema Neurologic/Psychiatric: no motor/sensory deficits, alert, + depressed affect Laboratory Results Last 24 Hours Test 02/27/17 21:04 02/28/17 05:26 02/28/17 06:40 02/28/17 11:37 Bedside Glucose 121 mg/dl 119 mg/dl 151 mg/dl Hemoglobin 12.0 g/dL Hematocrit 38.9 % Sodium Level 142 mmol/L Potassium Level 3.8 mmol/L Chloride Level 105 mmol/L Carbon Dioxide Level 33 mmol/L Anion Gap 4.0 mmol/L Blood Urea Nitrogen 43 mg/dl Creatinine 1.30 mg/dl Est Creatinine Clear Calc Drug Dose 50.0 ml/min Estimated GFR () 62.3 Estimated GFR (Non- 53.8 BUN/Creatinine Ratio 32.7 Random Glucose 141 mg/dl Calcium Level 8.2 mg/dl Phosphorus Level 3.3 mg/dl Magnesium Level 2.5 mg/dl Test 02/28/17 16:26 Bedside Glucose 110 mg/dl Assessment and Plan VTACH CARDIAC ARREST : 02/28 amiodarone and Eliquis metoprolol if BP allows currently on a honey thick liquid diet 02/27 amiodarone drip stopped; PO amio started IV heparin stopped; Eliquis started should be started on a b-jeffry if blood pressure allows will await further recs by cardiology will transfer to ICU to tele 02/26 extubated amiodarone drip being started heparin drip being started b-jeffry to be restarted in 24hrs as per cardiology 02/25 doing well, intubated, but requiring less ventilation as per principal technical architect - possible extubation in AM 02/24 on CPAP trial cont daily weaning protocol once extubated , will need to be evaluated for AICD placement Cardiology following 02/23/17 : unable to tolerate CPAP trial cont daily weaning protocol neurologically much improved , awake and alert , following commands 02/22/17: remains intubated , failed CPAP trial today CXray no pneumothorax noted ,satisfactory line placement -rt jugular CVP terminates at the brachiocephalic /SVC junction rt sided pleural catheter unchanged position mild central pulmonary congestion ordered 40 mg IV Lasix by Dr Porras on Amiodarone 200 mg VIA OG tube BID on Dopamine gtt Lopressor not initiated due to hypotensive Cardiology following 02/21/17 : remains intubated , off pressors on Amiodarone 200 mg per G-tube twice a day. IV heparin D/yaima on Eliquis 5 mg BID via G tube appreciate input form Cardiology and Steeping Press Tender 02/20 : remains intubated continued CPAP trial 02/19/17 : taken off Hypothermic protocol , Body core temp at normal 37.5 started to wean off sedation ( required large amount of sedation : Fentanyl @ 200 mcq, Versed @ 10mg/h ) cont CPAP trial appreciate input /help from Steeping Press Tender rt sided Chest tube remains in air seal converted to sinus rhythm /rate controlled @ 60's , on Amiodarone gtt improved Qtc on IV Heparin gtt on Dobutamine and Levophed gtt if pt able to recover enough to be extubated without neurological deficit will benefit with AICD placement during this hospital cardiology following 02/18/2017: HX of CAD with ischemic cardiomyopathy , CHF with combined systolic and diastolic HF ; EF < 30 % presented with Vtach cardiac arrest pt was placed on Zoll Life vest - became unresponsive at home , followed by shock therapy by life vest pt was shocked once by the life vest at home , and twice in ED developed Vtach Cardiac arrest -leading to CPR -admitted to ICU intubated/ started on Pressors -was placed on hypothermic protocol s/p right IJ central venous -placement by principal technical architect A right radial arterial line was inserted for continuous monitoring of blood pressures while on multiple vasopressors. developed pneumothorax with extensive Rt sided sub q emphysema due to CPR Cxray shows 02/16/17 : Rt sided pneumothorax with max pleural separation of 1.4 cm s/p rt right chest tube placement while in ICU , cardiac rhythm changed to Afib on amiodarone gtt /IV heparin started due arrhythmia -Afib appreciate input form Cardiology warming process started this morning appreciate help and input form the principal technical architect if pt is able to recover with adequate neurological capacity will need AICD placement COPD and chronic respiratory failure underlying COPD (smoked 1PPD for around 60 years) on chronic O2 at home - around 2L chronically will need O2 on discharge will need nebulizer machine and meds on discharge should have inhaler on discharge as well GERD/Hiatal Hernia continue Protonix AFIB : Amiodarone + Eliquis paroxysmal Afib due to cardiogenic shock / hypoxia on Amiodarone 200 mg BID via OG tube Eliquis 5 mg BID via OG tube ACUTE CVA : 02/25 cont. Eliquis for now MRI of brain 02/21/17 Findings concerning for a punctate focus of ischemia at the junction of the right inferior jeannie and medulla. This may represent a small lacunar infarct versus a punctate embolic infarct. No evidence of anoxic brain injury. possible cardiogenic emboli /pt been started on IV heparin since admission -pt is on Eliquis via NG tube neurology following pt is showing good prognosis factor with improve neurological alertness continue weaning protocol from vent will need life long anticoagulation ELEVATED TROPONIN : low LVEF at around 25-30% pt. with v-tach and cardiac arrest on admission due to Vtach cardiac arrest /aggressive CPR doubt due to acute AR /atherothrombotic plaque rupture Kris 0.40-> 10-> 11-> 8.4 ECHO 02/16/17 : thinning and scar of the inferior base, posterior and inferolateral ye. Septal motion is consistent with conduction abnormality. moderate apical wall hypokinesis. inferior wall akinesis. posterior wall akinesis. Ejection Fraction = 25-30%. ECHO unchanged from prior study on 12/2016 Cardiology following closely ROBERTO ON CKD STAGE 3 : resolved , Cr improved 1.06 due to Cardiac arrest /hypoperfusion of organs TYPE 2 DM : on Insulin gtt pharmacy following for glycemic management LACTIC ACIDOSIS : resolved Lactic acid 1.2 -after adequate tissue perfusion establish with Hypothermic protocol /pressors lactic acid was > 2 , with out any evidence of infection or sepsis due to Cardiogenic shock /organ /tissue hypoperfusion Supportive care provided with IV pressors /Hypothermic protocol DVT PROPHYLAXIS Eliquis DNR /DNI DISPOSITION remains critically ill in ICU
[2017-02-28] MEDS: METOPROLOL TARTRATE 25 MG TAB PO SCH (20:37)
[2017-02-28] MEDS: INSULIN GLARGINE SOLOSTAR 100 UNITS/ML 3 ML PEN SC SCH (20:38)
[2017-03-01] VITALS (9 sets, daily range): BP systolic 87–107; BP diastolic 44–60; PULSE 66–77; TEMP 36.5–37; O2SAT 91–99
--- NOTE | 2017-03-01 00:48 | Progress Note ---
Post ICU Progress Note Date & Time Feb 28, 2017 Vital Signs Vital Signs Past 12 Hours Date Time Temp Pulse Resp B/P (MAP) Pulse Ox O2 Delivery O2 Flow Rate FiO2 02/28/17 23:43 36.8 67 24 102/58 (73) 96 Nasal Cannula 4.0 02/28/17 20:00 Nasal Cannula 4.0 02/28/17 19:06 71 18 95 Nasal Cannula 4.0 02/28/17 19:03 36.4 73 18 95/55 (68) 96 Nasal Cannula 4.0 02/28/17 16:00 Nasal Cannula 4.0 02/28/17 15:53 71 18 93/45 (61) 96 Nasal Cannula 4.0 02/28/17 15:05 77 22 96 Nasal Cannula 4.0 02/28/17 13:23 98/59 (72) Notes Mental Status: alert / awake, participated in evaluation Nausea / Vomiting: adequately controlled Pain: adequately controlled (Denied Pain or discomfort) Airway Patency, RR, SpO2: stable & adequate (4L nasal cannula with adequate saturations; wean as tolerated. Lungs coarse and diminished with crackles throughout, minimal wheezing noted L > R) BP & HR: stable & adequate (Mildly hypotensive, unchanged SBP 90's -119) Brent Marie is a 76yo male with an extensive admission to the ICU starting on 02/17 after being found unresponsive due to V. fib/V. Tach arrest. Pt was antnoio to be wearing a [life vest] that delivered multiple shocks. He arrived in the E.D and was subsequently intubated. CPR left him with a right sided pneumothorax requiring chest tube drainage. Pt underwent Code Arctic Protocol. Pt did undergo both central and arterial line placement on day of admission; which have since been removed. Pt was extubated on day 10 of his ICU stay and transferred to telemetry on 02/27. Upon my examination pt states his thorax is still very sore but improving. He is weak and speaks in a whisper like quality. He appears to be in good spirits. When asked about his impending ICD placement, he was not sure of the prospective plans. I have reviewed case managements notes and agree with their assessment of Mr. Marie and his need for rehab s/p d/c; however, he is refusing such care and wishes to return home. Pt continues to cough in attempts to clear lungs. Would recommend chest physiotherapy, but secondary to pts CPR and pneumo history the pain would likely not be tolerated. It is vital to pt's progress to continue with incentive spirometry hourly. Otherwise, pt's assessment is unchanged from prior to transfer and is hemodynamically stable at this time. Consider outpatient follow up within 1 to 2 weeks of discharge with: Dr. Neftali Jamil, PCP; upon discharge pt will require routine follow-up with Cardiology Repeat imaging needed: CXR as needed Follow up cultures: None currently Reviewed progress notes, labs, and inpatient medication list Continue current management. Additional recommendations: Pacer pads and monitor to remain on pt at all times. CCM will sign off at this time. Thank you for including us in the care of this pt; please feel free to reconsult as needed. Consults & Procedures Consultants: cardiology Procedures: Surgical chest tubes 2 both removed Arterial Line Central Line
[2017-03-01] MEDS: SODIUM CHLOR 0.45% + 20MEQ KCL 1,000 ML IV SCH (01:37)
[2017-03-01 06:53] LABS: HEMOGLOBIN 12.6 g/dL (14.0-18.0); MEAN CORPUSCULAR HEMOGLOBIN 32.6 pg (25-34); MEAN CORPUSCULAR HGB CONC 32.3 g/dl (32-36); MEAN PLATELET VOLUME 11.4 fL (7.4-10.4); PLATELET COUNT 221 K/uL (130-400); RED CELL DISTRIBUTION WIDTH CV 16.2 % (11.5-14.5); RED CELL DISTRIBUTION WIDTH SD 59.5 fL (36.4-46.3); WHITE BLOOD COUNT 6.55 K/uL (4.8-10.8)
[2017-03-01 06:56] LABS: CALCIUM 8.5 mg/dl (8.5-10.1)
[2017-03-01] MEDS: ALBUT/IPRATROP 3MG/0.5MG NEB 3 ML VIAL INH SCH ×4 (07:00→20:01)
[2017-03-01] MEDS: METOPROLOL TARTRATE 25 MG TAB PO SCH ×2 (08:49→21:00)
[2017-03-01] MEDS: APIXABAN 2.5 MG TAB PO SCH ×2 (08:49→21:48)
[2017-03-01] MEDS: PANTOprazole SOD 40 MG TAB PO SCH (08:49)
[2017-03-01] MEDS: AMIODARONE 200 MG TAB PO SCH ×2 (08:50→21:49)
[2017-03-01] MEDS: POLYETHYLENE (MIRALAX) 17 GM PACK PO SCH (08:50)
[2017-03-01] MEDS: INSULIN ASPART 100 UNITS/ML 3 ML PEN SC SCH ×4 (08:52→21:00)
[2017-03-01] MEDS ORDERED: FUROSEMIDE INJ 20 MG in SYRINGE 0 ML IV ONE (09:15)
--- NOTE | 2017-03-01 09:22 | PROGRESS NOTE ---
DATE: 03/01/2017 FOLLOWUP VISIT SUBJECTIVE: The patient is a 76-year-old male patient with a history of an ischemic cardiomyopathy and an estimated left ventricular ejection fraction of 30%-35%. He had been admitted at the end of December, and following that admission was fitted with a LifeVest. The patient then had an outpatient cardiac arrest. The LifeVest shocked him several times and he had prolonged CPR in the Emergency Department. He was eventually stabilized and he has had a prolonged hospital admission including a lengthy intubation. He has been extubated and is now recovering in the medical ICU. The patient is scheduled to have a biventricular pacemaker/ICD implanted next week. There are no new cardiac complaints today. OBJECTIVE: VITAL SIGNS: Blood pressure is 107/60, pulse is regular at 70 beats a minute. He is currently in a sinus mechanism. I&O markedly increased fluid balance after the patient was started on p.o. intake. HEENT: He is normocephalic. Pupils are equal and reactive to light. Extraocular muscles are intact bilaterally. NECK: The neck veins are flat. Carotids have good upstrokes bilaterally without bruits. Thyroid is nonpalpable. RESPIRATORY: Breath sounds equal bilaterally with rales and rhonchi throughout. CARDIOVASCULAR: Heart has a regular rhythm. Normal S1, S2. No S3, S4. No cardiac rubs or murmurs. GASTROINTESTINAL: Abdomen is soft, nontender without organomegaly. EXTREMITIES: Free of edema, digit clubbing, or cyanosis. NEUROLOGIC: Grossly intact. SKIN: Warm to touch. LYMPH NODES: Negative to palpation. LABORATORY DATA: Creatinine is 1.0. Potassium is 4.0. Hemoglobin is 10.6, platelet count is 221. IMPRESSION: 1. Cardiac arrest survivor. 2. Ischemic cardiomyopathy with systolic heart failure. 3. Prolonged intubation, currently on thickened liquids. 4. Several rib fractures due to CPR with a pneumothorax, chest tube removed. RECOMMENDATIONS: As outlined above, the patient will receive a biventricular pacemaker/ICD next week. He is markedly elevated in his fluid balance and today I stopped his IV fluids. He also has rales and rhonchi throughout and I have given him a dose of Lasix today. Otherwise, he is clinically stable.
--- NOTE | 2017-03-01 09:45 | DIAGNOSTIC IMAGING REPORT ---
CHEST ONE VIEW PORTABLE HISTORY: Cardiac arrest. r/p pneumonia/pneumonitis COMPARISON: Chest 02/27/2017. FINDINGS: No pneumothorax. Diffuse interstitial and vascular thickening consistent with mild pulmonary edema. This is slightly improved. Small bilateral pleural effusions and mild cartilage. No new focal lung consolidations. Right chest wall subcutaneous emphysema is again noted. IMPRESSION: Slight improvement in the mild interstitial pulmonary edema. Small bilateral pleural effusions persist. Electronically signed by: Akash Morocho M.D. 03/01/2017 9:43 AM Dictated Date/Time: 03/01/2017 9:42 AM
--- NOTE | 2017-03-01 09:57 | Progress Note ---
Subjective Date of Service: Mar 01, 2017. Subjective Pt evaluation today including: conversation w/ patient, physical exam, lab review, review of studies, review of inpatient medication list Saw/examined the patient in room 204 No chest pain/palpitations +cough and coughs with liquids and some PO intake he is now on honey thick liquids states he is doing well mentally speech improving Problem List Medical Problems: (1) Elevated troponin Status: Acute (2) Pneumothorax on right Status: Acute (3) Pulmonary edema Status: Acute (4) Rib fractures Status: Acute (5) Ventricular tachycardia Status: Acute Review of Systems Constitutional: No fever, No chills Respiratory: + cough, + sputum, No wheezing, No shortness of breath, No dyspnea on exertion, No dyspnea at rest, No hemoptysis Cardiac: No chest pain, No edema, No palpitations Abdomen: No pain, No nausea, No vomiting, No diarrhea Medications Current Inpatient Medications Medications (Trade) Dose Ordered Sig/Shakira Route Start Time Stop Time Status Last Admin Dose Admin Ondansetron HCl (Zofran Inj) 4 mg Q6H PRN IV 02/17/17 02:30 03/19/17 02:29 Artificial Tears (Lacri-Lube Oph Oint) 1 appln Q2H PRN OPB 02/17/17 03:15 03/19/17 03:14 Glucose (Glucose 40% Gel) 15-30 GRAMS 15 GRAMS... UD PRN PO 02/17/17 05:15 03/19/17 05:14 Glucose (Glucose Chew Tab) 4-8 Tablets 4 Tabl... UD PRN PO 02/17/17 05:15 03/19/17 05:14 Dextrose (Dextrose 50% 50ML Syringe) 25-50ML OF 50% DW IV FOR... UD PRN IV 02/17/17 05:15 03/19/17 05:14 02/25/17 19:21 25 ML Glucagon (Glucagon Inj) 1 mg UD PRN SQ 02/17/17 05:15 03/19/17 05:14 Heparin Sodium (Porcine) (Heparin 10 Unit/ ml 5 ml Flush) 5 ml PRN PRN FLUSH 02/18/17 00:15 03/20/17 00:14 Docusate Sodium (coLACE SYRUP) 100 mg BID PO 02/20/17 21:00 03/22/17 20:59 Future Hold 02/24/17 08:23 100 MG Polyethylene (Miralax Powder Packet) 17 gm DAILY PO 02/21/17 09:00 03/23/17 08:59 03/01/17 08:50 17 GM Amiodarone HCl (Cordarone Tab) 200 mg BID PO 02/21/17 21:00 03/23/17 20:59 Future hold 03/01/17 08:50 200 MG Acetaminophen (Tylenol Soln) 650 mg Q4H PRN PO 02/22/17 10:00 03/24/17 09:59 02/23/17 08:07 650 MG Hydromorphone HCl (Dilaudid Inj) 1 mg Q4 PRN IV 02/22/17 14:00 03/08/17 13:59 02/26/17 20:31 1 MG Miscellaneous Information (Consult Glycemic Management Pharmacy) 1 ea UD PRN N/A 02/22/17 15:30 03/24/17 15:29 Fentanyl Citrate 250 ml @ 0 mls/hr Q0M PRN IV 02/23/17 23:45 03/09/17 23:44 02/24/17 22:25 5 MLS/HR Pantoprazole Sodium (Protonix Tab) 40 mg QAM PO 02/28/17 09:00 03/30/17 08:59 03/01/17 08:49 40 MG Insulin Glargine (Lantus Solostar Pen) QPM SC 02/27/17 21:00 03/29/17 20:59 Apixaban (Eliquis Tab) 5 mg BID PO 02/27/17 18:00 03/29/17 17:59 03/01/17 08:49 5 MG Insulin Aspart (novoLOG ASPART) SLIDING SCALE ACHS SC 02/27/17 21:00 03/29/17 20:59 03/01/17 08:52 2 UNITS Albuterol/ Ipratropium (Duoneb) 3 ml QIDR INH 02/28/17 08:00 03/30/17 07:59 03/01/17 07:00 3 ML Metoprolol Tartrate (Lopressor Tab) 12.5 mg BID PO 02/28/17 21:00 03/30/17 20:59 03/01/17 08:49 12.5 MG Objective Vital Signs Date Time Temp Pulse Resp B/P (MAP) Pulse Ox O2 Delivery O2 Flow Rate FiO2 03/01/17 08:00 Nasal Cannula 5.0 03/01/17 07:14 36.8 70 26 107/60 (76) 99 Nasal Cannula 5.0 03/01/17 07:00 71 18 95 Nasal Cannula 4.0 03/01/17 04:05 36.5 70 20 96/54 (68) 96 Nasal Cannula 4.0 03/01/17 04:00 Nasal Cannula 4.0 03/01/17 00:00 Nasal Cannula 4.0 02/28/17 23:43 36.8 67 24 102/58 (73) 96 Nasal Cannula 4.0 02/28/17 20:00 Nasal Cannula 4.0 02/28/17 19:06 71 18 95 Nasal Cannula 4.0 02/28/17 19:03 36.4 73 18 95/55 (68) 96 Nasal Cannula 4.0 02/28/17 16:00 Nasal Cannula 4.0 02/28/17 15:53 71 18 93/45 (61) 96 Nasal Cannula 4.0 02/28/17 15:05 77 22 96 Nasal Cannula 4.0 02/28/17 13:23 98/59 (72) 02/28/17 12:00 Oxymask 6.0 02/28/17 11:38 36.6 77 26 95/70 (78) 98 Oxymask 6.0 Physical Exam General Appearance: no apparent distress ENT: hearing grossly normal Respiratory/Chest: no respiratory distress, no accessory muscle use, + rhonchi Cardiovascular: regular rate, rhythm, no edema, no murmur Extremities: normal range of motion, non-tender, normal inspection, no pedal edema, no calf tenderness Neurologic/Psychiatric: no motor/sensory deficits, alert Laboratory Results Last 24 Hours Test 02/28/17 11:37 02/28/17 16:26 02/28/17 20:25 03/01/17 05:36 Bedside Glucose 151 mg/dl 110 mg/dl 149 mg/dl White Blood Count 6.55 K/uL Red Blood Count 3.86 M/uL Hemoglobin 12.6 g/dL Hematocrit 39.0 % Mean Corpuscular Volume 101.0 fL Mean Corpuscular Hemoglobin 32.6 pg Mean Corpuscular Hemoglobin Concent 32.3 g/dl RDW Standard Deviation 59.5 fL RDW Coefficient of Variation 16.2 % Platelet Count 221 K/uL Mean Platelet Volume 11.4 fL Sodium Level 142 mmol/L Potassium Level 4.0 mmol/L Chloride Level 107 mmol/L Carbon Dioxide Level 32 mmol/L Anion Gap 3.0 mmol/L Blood Urea Nitrogen 33 mg/dl Creatinine 1.00 mg/dl Est Creatinine Clear Calc Drug Dose 70.6 ml/min Estimated GFR () 85.6 Estimated GFR (Non- 73.8 BUN/Creatinine Ratio 33.2 Random Glucose 122 mg/dl Calcium Level 8.5 mg/dl Magnesium Level 2.6 mg/dl Test 03/01/17 06:37 Bedside Glucose 116 mg/dl Assessment and Plan VTACH CARDIAC ARREST : 03/01 amiodarone and Eliquis given one dose of Lasix; CXR suggests pleural effusions bilaterally, no pneumonia plan for biventricular pacer on Monday 03/05 hold Eliquis on Friday low dose b-jeffry 02/28 amiodarone and Eliquis metoprolol if BP allows currently on a honey thick liquid diet 02/27 amiodarone drip stopped; PO amio started IV heparin stopped; Eliquis started should be started on a b-jeffry if blood pressure allows will await further recs by cardiology will transfer to ICU to tele 02/26 extubated amiodarone drip being started heparin drip being started b-jeffry to be restarted in 24hrs as per cardiology 02/25 doing well, intubated, but requiring less ventilation as per hydraulic spinner - possible extubation in AM 02/24 on CPAP trial cont daily weaning protocol once extubated , will need to be evaluated for AICD placement Cardiology following 02/23/17 : unable to tolerate CPAP trial cont daily weaning protocol neurologically much improved , awake and alert , following commands 02/22/17: remains intubated , failed CPAP trial today CXray no pneumothorax noted ,satisfactory line placement -rt jugular CVP terminates at the brachiocephalic /SVC junction rt sided pleural catheter unchanged position mild central pulmonary congestion ordered 40 mg IV Lasix by Dr Porras on Amiodarone 200 mg VIA OG tube BID on Dopamine gtt Lopressor not initiated due to hypotensive Cardiology following 02/21/17 : remains intubated , off pressors on Amiodarone 200 mg per G-tube twice a day. IV heparin D/yaima on Eliquis 5 mg BID via G tube appreciate input form Cardiology and [employer] 02/20 : remains intubated continued CPAP trial 02/19/17 : taken off Hypothermic protocol , Body core temp at normal 37.5 started to wean off sedation ( required large amount of sedation : Fentanyl @ 200 mcq, Versed @ 10mg/h ) cont CPAP trial appreciate input /help from [employer] rt sided Chest tube remains in air seal converted to sinus rhythm /rate controlled @ 60's , on Amiodarone gtt improved Qtc on IV Heparin gtt on Dobutamine and Levophed gtt if pt able to recover enough to be extubated without neurological deficit will benefit with AICD placement during this hospital cardiology following 02/18/2017: HX of CAD with ischemic cardiomyopathy , 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 developed pneumothorax with extensive Rt sided sub q emphysema due to CPR Cxray shows 02/16/17 : Rt sided pneumothorax with max pleural separation of 1.4 cm s/p rt right chest tube placement while in ICU , cardiac rhythm changed to Afib on amiodarone gtt /IV heparin started due arrhythmia -Afib appreciate input form Cardiology warming process started this morning appreciate help and input form the hydraulic spinner if pt is able to recover with adequate neurological capacity will need AICD placement COPD and chronic respiratory failure underlying COPD (smoked 1PPD for around 60 years) on chronic O2 at home - around 2L chronically will need O2 on discharge will need nebulizer machine and meds on discharge should have inhaler on discharge as well GERD/Hiatal Hernia continue Protonix AFIB : Amiodarone + Eliquis paroxysmal Afib due to cardiogenic shock / hypoxia on Amiodarone 200 mg BID via OG tube Eliquis 5 mg BID via OG tube ACUTE CVA : 02/25 cont. Eliquis for now MRI of brain 02/21/17 Findings concerning for a punctate focus of ischemia at the junction of the right inferior jeannie and medulla. This may represent a small lacunar infarct versus a punctate embolic infarct. No evidence of anoxic brain injury. possible cardiogenic emboli /pt been started on IV heparin since admission -pt is on Eliquis via NG tube neurology following pt is showing good prognosis factor with improve neurological alertness continue weaning protocol from vent will need life long anticoagulation ELEVATED TROPONIN : low LVEF at around 25-30% pt. with v-tach and cardiac arrest on admission due to Vtach cardiac arrest /aggressive CPR doubt due to acute PR /atherothrombotic plaque rupture Kris 0.40-> 10-> 11-> 8.4 ECHO 02/16/17 : thinning and scar of the inferior base, posterior and inferolateral ye. Septal motion is consistent with conduction abnormality. moderate apical wall hypokinesis. inferior wall akinesis. posterior wall akinesis. Ejection Fraction = 25-30%. ECHO unchanged from prior study on 12/2016 Cardiology following closely ROBERTO ON CKD STAGE 3 : resolved , Cr improved 1.06 due to Cardiac arrest /hypoperfusion of organs TYPE 2 DM : on Insulin gtt pharmacy following for glycemic management LACTIC ACIDOSIS : resolved Lactic acid 1.2 -after adequate tissue perfusion establish with Hypothermic protocol /pressors lactic acid was > 2 , with out any evidence of infection or sepsis due to Cardiogenic shock /organ /tissue hypoperfusion Supportive care provided with IV pressors /Hypothermic protocol DVT PROPHYLAXIS Eliquis DNR /DNI DISPOSITION remains critically ill in ICU
--- NOTE | 2017-03-01 11:45 | Pharmacy Progress Note ---
Glycemic Control Progress Note Date of Service Mar 01, 2017. Scope Glycemic Pharmacist consulted for glycemic control to write orders per [facility] inpatient glycemic control protocol. Objective Accuchecks BSG (last 24hrs): Test 02/28/17 16:26 02/28/17 20:25 03/01/17 05:36 03/01/17 06:37 Bedside Glucose 110 mg/dl (70-99) 149 mg/dl (70-99) 116 mg/dl (70-99) Random Glucose 122 mg/dl (70-99) HbA1c: Test 02/18/17 04:07 Hemoglobin A1c 6.9 % (4.5-5.6) H Recent Pertinent Medications The patient is currently receiving: * Basal insulin: Lantus SQ Q HS per scale: 0 units if BSG 160 or less; 5 units if greater than 160 * Correctional Insulin: Novolog Correction per scale ACHS Goal Range: Low 120 mg/dL - High 160 mg/dL Correction Factor: 25 mg/dL/unit * Prandial insulin: Per carb ratio of 1 unit per 10 grams CHO consumed * Oral Agents: None currently Outpatient Anti-Diabetic Meds No prior dx of DM Assessment & Plan ASSESSMENT: 03/01/17 * BSGs at goal over the last 24 hours; BSGs have ranged 110-151 and he has only received 14 units of SQ * Fasting BSG 116 this AM w/ 5 units of Lantus on board; he has done well with no basal insulin prior days with no PO intake. Will continue low dose Lantus for now. * CR has performed well when utilized PLAN FOR INPATIENT GLYCEMIC CONTROL: * Continuing Lantus as 5 units once daily in the PM (no scale) * Continuing correction factor of 25 mg/dl/unit * Continuing carb ratio of 1 unit per 10 grams CHO consumed * Continuing goal range of Low 120 mg/dL - High 160 mg/dL * Please note that the plan above was derived based on current level of insulin resistance and hospital stress. These recommendations are appropriate for inpatient admission only. Plan of care upon discharge will need to be reassessed to avoid potential outpatient hypo/hyperglycemia. Thank you.
[2017-03-01] MEDS: INSULIN GLARGINE SOLOSTAR 100 UNITS/ML 3 ML PEN SC SCH (21:46)
[2017-03-02] VITALS (13 sets, daily range): BP systolic 91–109; BP diastolic 40–55; PULSE 50–76; TEMP 36.4–36.9; O2SAT 6–99
[2017-03-02 05:40] LABS: HEMATOCRIT 38.2 % (42-52); HEMOGLOBIN 12.1 g/dL (14.0-18.0); MEAN CELL VOLUME 101.1 fL (80-100); MEAN CORPUSCULAR HGB CONC 31.7 g/dl (32-36); MEAN PLATELET VOLUME 10.7 fL (7.4-10.4); PLATELET COUNT 218 K/uL (130-400); RED CELL DISTRIBUTION WIDTH CV 16.3 % (11.5-14.5); RED CELL DISTRIBUTION WIDTH SD 58.5 fL (36.4-46.3); WHITE BLOOD COUNT 6.51 K/uL (4.8-10.8)
[2017-03-02 06:06] LABS: CALCIUM 8.4 mg/dl (8.5-10.1); CREATININE 1.06 mg/dl (0.60-1.40); POTASSIUM 3.7 mmol/L (3.5-5.1)
[2017-03-02] MEDS: ALBUT/IPRATROP 3MG/0.5MG NEB 3 ML VIAL INH SCH ×4 (06:58→18:40)
[2017-03-02] MEDS: AMIODARONE 200 MG TAB PO SCH ×2 (07:36→22:21)
[2017-03-02] MEDS: APIXABAN 2.5 MG TAB PO SCH ×2 (07:36→22:19)
[2017-03-02] MEDS: PANTOprazole SOD 40 MG TAB PO SCH (07:37)
[2017-03-02] MEDS: METOPROLOL TARTRATE 25 MG TAB PO SCH ×2 (07:37→21:00)
[2017-03-02] MEDS: INSULIN ASPART 100 UNITS/ML 3 ML PEN SC SCH ×4 (07:39→22:24)
[2017-03-02] MEDS: POLYETHYLENE (MIRALAX) 17 GM PACK PO SCH (07:41)
--- NOTE | 2017-03-02 09:25 | PROGRESS NOTE ---
DATE: 03/02/2017 FOLLOWUP VISIT SUBJECTIVE: The patient is a 76-year-old male with a history of ischemic cardiomyopathy with an estimated left ventricular ejection fraction of 30%-35%. He was fitted with a LifeVest in December with plans of followup ICD, but then had an outpatient cardiac arrest, receiving several shocks from his vest and then a prolonged CPR in the Emergency Department. He has had a prolonged hospital stay including a lengthy intubation. He has now been extubated and recovering in the medical ICU. The plan is for this week for the patient to receive a biventricular pacemaker/ICD. He has had an uneventful night. Yesterday, I gave him Lasix as his fluid balance was markedly elevated. I discontinued his IV fluid. He did diurese, but still remains in positive numbers. OBJECTIVE: GENERAL: He is alert and oriented, in no acute distress. VITAL SIGNS: Blood pressure is 95/60 and pulse is regular at 71 beats per minute. He is afebrile. HEENT: He is normocephalic. Pupils are equal and reactive to light. Extraocular muscles are intact bilaterally. NECK: The neck veins are flat. Carotids have good upstrokes bilaterally without bruits. Thyroid is nonpalpable. RESPIRATORY: Breath sounds equal bilaterally. There are rales or rhonchi throughout. CARDIOVASCULAR: Heart has a regular rhythm. Normal S1 and S2. No S3 or S4. No cardiac rubs or murmurs. GASTROINTESTINAL: Abdomen is soft and nontender without organomegaly. EXTREMITIES: Free of edema, digit clubbing, or cyanosis. NEUROLOGIC: Grossly intact. SKIN: Warm to touch. LYMPH NODES: Negative to palpation. LABORATORY DATA: Potassium is 3.7 and creatinine is 1.06. Hemoglobin is 12.1. IMPRESSION: 1. Cardiac arrest survivor. 2. Ischemic cardiomyopathy with systolic heart failure. 3. Prolonged intubation, currently on thickened liquids. 4. Several rib fractures due to CPR with pneumothorax, chest tube removed. RECOMMENDATIONS: As outlined above, the patient will receive a biventricular pacemaker ICD next week. I believe that he should receive additional diuretics today to put him into negative numbers. I will also supplement his potassium and magnesium.
--- NOTE | 2017-03-02 09:28 | Progress Note ---
Subjective Date of Service: Mar 02, 2017. Subjective Pt evaluation today including: conversation w/ patient, physical exam, lab review, review of studies, review of inpatient medication list Saw/examined the patient in room 204 He's doing well +cough persists with chest congestion denies chest pain; denies shortness of breath Problem List Medical Problems: (1) Elevated troponin Status: Acute (2) Pneumothorax on right Status: Acute (3) Pulmonary edema Status: Acute (4) Rib fractures Status: Acute (5) Ventricular tachycardia Status: Acute Review of Systems Constitutional: No fever, No chills Respiratory: + cough, + sputum, No wheezing, No shortness of breath, No dyspnea on exertion, No dyspnea at rest, No hemoptysis Cardiac: No chest pain, No edema, No palpitations Heme: No abnormal bleeding/bruising Medications Current Inpatient Medications Medications (Trade) Dose Ordered Sig/Shakira Route Start Time Stop Time Status Last Admin Dose Admin Ondansetron HCl (Zofran Inj) 4 mg Q6H PRN IV 02/17/17 02:30 03/19/17 02:29 Artificial Tears (Lacri-Lube Oph Oint) 1 appln Q2H PRN OPB 02/17/17 03:15 03/19/17 03:14 Glucose (Glucose 40% Gel) 15-30 GRAMS 15 GRAMS... UD PRN PO 02/17/17 05:15 03/19/17 05:14 Glucose (Glucose Chew Tab) 4-8 Tablets 4 Tabl... UD PRN PO 02/17/17 05:15 03/19/17 05:14 Dextrose (Dextrose 50% 50ML Syringe) 25-50ML OF 50% DW IV FOR... UD PRN IV 02/17/17 05:15 03/19/17 05:14 02/25/17 19:21 25 ML Glucagon (Glucagon Inj) 1 mg UD PRN SQ 02/17/17 05:15 03/19/17 05:14 Heparin Sodium (Porcine) (Heparin 10 Unit/ ml 5 ml Flush) 5 ml PRN PRN FLUSH 02/18/17 00:15 03/20/17 00:14 Docusate Sodium (coLACE SYRUP) 100 mg BID PO 02/20/17 21:00 03/22/17 20:59 Future Hold 02/24/17 08:23 100 MG Polyethylene (Miralax Powder Packet) 17 gm DAILY PO 02/21/17 09:00 03/23/17 08:59 03/01/17 08:50 17 GM Amiodarone HCl (Cordarone Tab) 200 mg BID PO 02/21/17 21:00 03/23/17 20:59 Future hold 03/02/17 07:36 200 MG Acetaminophen (Tylenol Soln) 650 mg Q4H PRN PO 02/22/17 10:00 03/24/17 09:59 02/23/17 08:07 650 MG Hydromorphone HCl (Dilaudid Inj) 1 mg Q4 PRN IV 02/22/17 14:00 03/08/17 13:59 02/26/17 20:31 1 MG Miscellaneous Information (Consult Glycemic Management Pharmacy) 1 ea UD PRN N/A 02/22/17 15:30 03/24/17 15:29 Pantoprazole Sodium (Protonix Tab) 40 mg QAM PO 02/28/17 09:00 03/30/17 08:59 03/02/17 07:37 40 MG Apixaban (Eliquis Tab) 5 mg BID PO 02/27/17 18:00 03/29/17 17:59 03/02/17 07:36 5 MG Insulin Aspart (novoLOG ASPART) SLIDING SCALE ACHS SC 02/27/17 21:00 03/29/17 20:59 03/02/17 07:39 3 UNITS Albuterol/ Ipratropium (Duoneb) 3 ml QIDR INH 02/28/17 08:00 03/30/17 07:59 03/02/17 06:58 3 ML Metoprolol Tartrate (Lopressor Tab) 12.5 mg BID PO 02/28/17 21:00 03/30/17 20:59 03/02/17 07:37 12.5 MG Insulin Glargine (Lantus Solostar Pen) 5 units QPM SC 03/01/17 21:00 03/31/17 20:59 03/01/17 21:46 5 UNITS Potassium Chloride (Klor-Con Tab) 20 meq QAM PO 03/03/17 09:00 04/02/17 08:59 UNV Potassium Chloride (Klor-Con M10) 20 meq NOW STAT PO 03/02/17 09:01 12/24/17 09:02 UNV Magnesium Chloride (Slow-Mag Tab) 64 mg BID PO 03/02/17 21:00 04/01/17 20:59 UNV Magnesium Chloride (Slow-Mag Tab) 64 mg NOW ONCE PO 03/02/17 09:15 03/02/17 09:16 UNV Furosemide 40 mg/ Syringe 4 ml @ 4 mls/min NOW ONCE IV 03/02/17 09:15 03/02/17 09:16 UNV Objective Vital Signs Date Time Temp Pulse Resp B/P (MAP) Pulse Ox O2 Delivery O2 Flow Rate FiO2 03/02/17 08:00 Nasal Cannula 6.0 03/02/17 07:25 36.5 71 20 95/46 (62) 95 Nasal Cannula 5.0 03/02/17 06:58 51 18 99 Nasal Cannula 5.0 03/02/17 04:17 36.9 68 16 99/53 (68) 96 5.0 03/02/17 04:00 93 Nasal Cannula 6.0 Humidified Oxygen 03/02/17 00:13 36.5 76 18 95/52 (66) 6 03/02/17 00:00 93 Nasal Cannula 6.0 Humidified Oxygen 03/01/17 20:00 Nasal Cannula 6.0 03/01/17 19:49 36.7 72 23 87/44 (58) 91 Nasal Cannula 5.0 03/01/17 18:55 70 18 96 Nasal Cannula 5.0 03/01/17 16:00 Nasal Cannula 6.0 03/01/17 15:31 36.6 68 26 102/57 (72) 92 Nasal Cannula 6.0 03/01/17 15:14 67 18 94 Nasal Cannula 4.0 03/01/17 14:09 37.0 66 24 95/55 (68) 98 Nasal Cannula 6.0 Humidified Oxygen 03/01/17 12:00 Nasal Cannula 5.0 03/01/17 11:24 77 18 97 Nasal Cannula 4.0 Physical Exam General Appearance: no apparent distress Respiratory/Chest: no respiratory distress, no accessory muscle use, + crackles Cardiovascular: regular rate, rhythm, no edema, no murmur Extremities: + pertinent finding (+1 pitting edema b/l LE) Neurologic/Psychiatric: no motor/sensory deficits, alert, normal mood/affect Laboratory Results Last 24 Hours Test 03/01/17 11:26 03/01/17 16:26 03/01/17 20:45 03/02/17 05:21 Bedside Glucose 108 mg/dl 101 mg/dl 124 mg/dl White Blood Count 6.51 K/uL Red Blood Count 3.78 M/uL Hemoglobin 12.1 g/dL Hematocrit 38.2 % Mean Corpuscular Volume 101.1 fL Mean Corpuscular Hemoglobin 32.0 pg Mean Corpuscular Hemoglobin Concent 31.7 g/dl RDW Standard Deviation 58.5 fL RDW Coefficient of Variation 16.3 % Platelet Count 218 K/uL Mean Platelet Volume 10.7 fL Sodium Level 144 mmol/L Potassium Level 3.7 mmol/L Chloride Level 108 mmol/L Carbon Dioxide Level 33 mmol/L Anion Gap 3.0 mmol/L Blood Urea Nitrogen 31 mg/dl Creatinine 1.06 mg/dl Est Creatinine Clear Calc Drug Dose 67.1 ml/min Estimated GFR () 79.7 Estimated GFR (Non- 68.8 BUN/Creatinine Ratio 29.2 Random Glucose 125 mg/dl Calcium Level 8.4 mg/dl Magnesium Level 2.5 mg/dl Test 03/02/17 06:32 Bedside Glucose 134 mg/dl Assessment and Plan VTACH CARDIAC ARREST Ischemic Cardiomyopathy with EF ~ 25-30% 03/02 appreciate cardiology input continue Eliquis and amiodarone given another dose of Lasix today monitor electrolytes, K >4 and Mg >2 b-jeffry if BP allows 03/01 amiodarone and Eliquis given one dose of Lasix; CXR suggests pleural effusions bilaterally, no pneumonia plan for biventricular pacer on Monday 03/05 hold Eliquis on Friday low dose b-jeffry 02/28 amiodarone and Eliquis metoprolol if BP allows currently on a honey thick liquid diet 02/27 amiodarone drip stopped; PO amio started IV heparin stopped; Eliquis started should be started on a b-jeffry if blood pressure allows will await further recs by cardiology will transfer to ICU to [facility] 02/26 extubated amiodarone drip being started heparin drip being started b-jeffry to be restarted in 24hrs as per cardiology 02/25 doing well, intubated, but requiring less ventilation as per raspberry checker - possible extubation in AM 02/24 on CPAP trial cont daily weaning protocol once extubated , will need to be evaluated for AICD placement Cardiology following 02/23/17 : unable to tolerate CPAP trial cont daily weaning protocol neurologically much improved , awake and alert , following commands 02/22/17: remains intubated , failed CPAP trial today CXray no pneumothorax noted ,satisfactory line placement -rt jugular CVP terminates at the brachiocephalic /SVC junction rt sided pleural catheter unchanged position mild central pulmonary congestion ordered 40 mg IV Lasix by Dr Porras on Amiodarone 200 mg VIA OG tube BID on Dopamine gtt Lopressor not initiated due to hypotensive Cardiology following 02/21/17 : remains intubated , off pressors on Amiodarone 200 mg per G-tube twice a day. IV heparin D/yaima on Eliquis 5 mg BID via G tube appreciate input form Cardiology and Ham Curer 02/20 : remains intubated continued CPAP trial 02/19/17 : taken off Hypothermic protocol , Body core temp at normal 37.5 started to wean off sedation ( required large amount of sedation : Fentanyl @ 200 mcq, Versed @ 10mg/h ) cont CPAP trial appreciate input /help from Ham Curer rt sided Chest tube remains in air seal converted to sinus rhythm /rate controlled @ 60's , on Amiodarone gtt improved Qtc on IV Heparin gtt on Dobutamine and Levophed gtt if pt able to recover enough to be extubated without neurological deficit will benefit with AICD placement during this hospital cardiology following 02/18/2017: HX of CAD with ischemic cardiomyopathy , 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 developed pneumothorax with extensive Rt sided sub q emphysema due to CPR Cxray shows 02/16/17 : Rt sided pneumothorax with max pleural separation of 1.4 cm s/p rt right chest tube placement while in ICU , cardiac rhythm changed to Afib on amiodarone gtt /IV heparin started due arrhythmia -Afib appreciate input form Cardiology warming process started this morning appreciate help and input form the raspberry checker if pt is able to recover with adequate neurological capacity will need AICD placement COPD and chronic respiratory failure underlying COPD (smoked 1PPD for around 60 years) on chronic O2 at home - around 2L chronically will need O2 on discharge will need nebulizer machine and meds on discharge should have inhaler on discharge as well GERD/Hiatal Hernia continue Protonix AFIB : Amiodarone + Eliquis paroxysmal Afib due to cardiogenic shock / hypoxia on Amiodarone 200 mg BID via OG tube Eliquis 5 mg BID via OG tube ACUTE CVA : 02/25 cont. Eliquis for now MRI of brain 02/21/17 Findings concerning for a punctate focus of ischemia at the junction of the right inferior jeannie and medulla. This may represent a small lacunar infarct versus a punctate embolic infarct. No evidence of anoxic brain injury. possible cardiogenic emboli /pt been started on IV heparin since admission -pt is on Eliquis via NG tube neurology following pt is showing good prognosis factor with improve neurological alertness continue weaning protocol from vent will need life long anticoagulation ELEVATED TROPONIN : low LVEF at around 25-30% pt. with v-tach and cardiac arrest on admission due to Vtach cardiac arrest /aggressive CPR doubt due to acute [place] /atherothrombotic plaque rupture Kris 0.40-> 10-> 11-> 8.4 ECHO 02/16/17 : thinning and scar of the inferior base, posterior and inferolateral ye. Septal motion is consistent with conduction abnormality. moderate apical wall hypokinesis. inferior wall akinesis. posterior wall akinesis. Ejection Fraction = 25-30%. ECHO unchanged from prior study on 12/2016 Cardiology following closely ROBERTO ON CKD STAGE 3 : resolved , Cr improved 1.06 due to Cardiac arrest /hypoperfusion of organs TYPE 2 DM : on Insulin gtt pharmacy following for glycemic management LACTIC ACIDOSIS : resolved Lactic acid 1.2 -after adequate tissue perfusion establish with Hypothermic protocol /pressors lactic acid was > 2 , with out any evidence of infection or sepsis due to Cardiogenic shock /organ /tissue hypoperfusion Supportive care provided with IV pressors /Hypothermic protocol DVT PROPHYLAXIS Eliquis DNR /DNI DISPOSITION remains critically ill in ICU
[2017-03-02] MEDS ORDERED: POTASSIUM CHLORIDE 10 MEQ TABCR PO ONE (09:30)
[2017-03-02] MEDS ORDERED: FUROSEMIDE INJ 40 MG in SYRINGE 0 ML IV ONE (09:30)
[2017-03-02] MEDS ORDERED: MAGNESIUM CHLORIDE 64MG DELAYED REL TAB PO ONE (09:30)
[2017-03-02] MEDS ORDERED: NURSING VERBAL MED ORDER ONE (10:45)
[2017-03-02] MEDS ORDERED: ACETAMINOPHEN 325 MG TAB PO PRN (11:00)
--- NOTE | 2017-03-02 11:08 | Pharmacy Progress Note ---
Glycemic Control Progress Note Date of Service Mar 02, 2017. Scope Glycemic Pharmacist consulted for glycemic control to write orders per [facility] inpatient glycemic control protocol. Objective Accuchecks BSG (last 24hrs): Test 03/01/17 11:26 03/01/17 16:26 03/01/17 20:45 03/02/17 05:21 Bedside Glucose 108 mg/dl (70-99) 101 mg/dl (70-99) 124 mg/dl (70-99) Random Glucose 125 mg/dl (70-99) Test 03/02/17 06:32 Bedside Glucose 134 mg/dl (70-99) HbA1c: Test 02/18/17 04:07 Hemoglobin A1c 6.9 % (4.5-5.6) H Recent Pertinent Medications The patient is currently receiving: * Basal insulin: Lantus 5 units SQ Q HS * Correctional Insulin: Novolog Correction per scale ACHS Goal Range: Low 120 mg/dL - High 160 mg/dL Correction Factor: 25 mg/dL/unit * Prandial insulin: Per carb ratio of 1 unit per 10 grams CHO consumed * Oral Agents: None currently Outpatient Anti-Diabetic Meds no prior dx of DM; however A1c is within the diabetic range (A1c 6.9%) Assessment & Plan ASSESSMENT: 03/01/17 * BSGs at goal over the last 24 hours; BSGs have ranged 110-151 and he has only received 14 units of SQ * Fasting BSG 116 this AM w/ 5 units of Lantus on board; he has done well with no basal insulin prior days with no PO intake. Will continue low dose Lantus for now. * CR has performed well when utilized 03/02/17 * BSGs have ranged 101-134 over the last 24 hrs utilizing the current insulin orders * No new stressors identified * Plan to continue w/ current orders PLAN FOR INPATIENT GLYCEMIC CONTROL: * Continuing Lantus as 5 units once daily in the PM (no scale) * Continuing correction factor of 25 mg/dl/unit * Continuing carb ratio of 1 unit per 10 grams CHO consumed * Continuing goal range of Low 120 mg/dL - High 160 mg/dL * Please note that the plan above was derived based on current level of insulin resistance and hospital stress. These recommendations are appropriate for inpatient admission only. Plan of care upon discharge will need to be reassessed to avoid potential outpatient hypo/hyperglycemia. Thank you.
[2017-03-02] MEDS: MAGNESIUM CHLORIDE 64MG DELAYED REL TAB PO SCH (22:20)
[2017-03-02] MEDS: INSULIN GLARGINE SOLOSTAR 100 UNITS/ML 3 ML PEN SC SCH (22:25)
[2017-03-03] VITALS (9 sets, daily range): BP systolic 94–105; BP diastolic 48–58; PULSE 59–75; TEMP 36.4–36.6; O2SAT 92–99
[2017-03-03 06:26] LABS: HEMATOCRIT 38.1 % (42-52); HEMOGLOBIN 12.1 g/dL (14.0-18.0); MEAN CELL VOLUME 100.8 fL (80-100); MEAN CORPUSCULAR HGB CONC 31.8 g/dl (32-36); MEAN PLATELET VOLUME 10.7 fL (7.4-10.4); PLATELET COUNT 235 K/uL (130-400); RED CELL DISTRIBUTION WIDTH CV 16.2 % (11.5-14.5); RED CELL DISTRIBUTION WIDTH SD 57.9 fL (36.4-46.3); WHITE BLOOD COUNT 5.95 K/uL (4.8-10.8)
[2017-03-03 07:01] LABS: CALCIUM 8.5 mg/dl (8.5-10.1); CREATININE 1.11 mg/dl (0.60-1.40); POTASSIUM 3.9 mmol/L (3.5-5.1)
[2017-03-03] MEDS: ALBUT/IPRATROP 3MG/0.5MG NEB 3 ML VIAL INH SCH ×4 (07:30→19:05)
[2017-03-03] MEDS: AMIODARONE 200 MG TAB PO SCH ×2 (08:45→20:29)
[2017-03-03] MEDS: PANTOprazole SOD 40 MG TAB PO SCH (08:46)
[2017-03-03] MEDS: METOPROLOL TARTRATE 25 MG TAB PO SCH ×2 (08:46→20:27)
[2017-03-03] MEDS: POTASSIUM CHLORIDE 20 MEQ TABCR PO SCH (08:46)
[2017-03-03] MEDS: APIXABAN 2.5 MG TAB PO SCH (08:46)
[2017-03-03] MEDS: POLYETHYLENE (MIRALAX) 17 GM PACK PO SCH (08:47)
[2017-03-03] MEDS: INSULIN ASPART 100 UNITS/ML 3 ML PEN SC SCH ×4 (08:50→20:34)
--- NOTE | 2017-03-03 09:31 | Progress Note ---
Subjective Date of Service: Mar 03, 2017. Subjective Pt evaluation today including: conversation w/ patient, physical exam, lab review, review of studies, review of inpatient medication list Saw/examined the patient in room 204 He's doing well, denies chest pain/palpitations/shortness of breath has a cough, minimal production speech is improving good PO intake Problem List Medical Problems: (1) Elevated troponin Status: Acute (2) Pneumothorax on right Status: Acute (3) Pulmonary edema Status: Acute (4) Rib fractures Status: Acute (5) Ventricular tachycardia Status: Acute Review of Systems Constitutional: No fever, No chills Respiratory: + cough, No sputum, No wheezing, No shortness of breath, No dyspnea on exertion, No dyspnea at rest, No hemoptysis Cardiac: + edema, No chest pain, No palpitations Abdomen: No pain, No nausea, No vomiting, No diarrhea Medications Current Inpatient Medications Medications (Trade) Dose Ordered Sig/Shakira Route Start Time Stop Time Status Last Admin Dose Admin Ondansetron HCl (Zofran Inj) 4 mg Q6H PRN IV 02/17/17 02:30 03/19/17 02:29 Artificial Tears (Lacri-Lube Oph Oint) 1 appln Q2H PRN OPB 02/17/17 03:15 03/19/17 03:14 Glucose (Glucose 40% Gel) 15-30 GRAMS 15 GRAMS... UD PRN PO 02/17/17 05:15 03/19/17 05:14 Glucose (Glucose Chew Tab) 4-8 Tablets 4 Tabl... UD PRN PO 02/17/17 05:15 03/19/17 05:14 Dextrose (Dextrose 50% 50ML Syringe) 25-50ML OF 50% DW IV FOR... UD PRN IV 02/17/17 05:15 03/19/17 05:14 02/25/17 19:21 25 ML Glucagon (Glucagon Inj) 1 mg UD PRN SQ 02/17/17 05:15 03/19/17 05:14 Heparin Sodium (Porcine) (Heparin 10 Unit/ ml 5 ml Flush) 5 ml PRN PRN FLUSH 02/18/17 00:15 03/20/17 00:14 Docusate Sodium (coLACE SYRUP) 100 mg BID PO 02/20/17 21:00 03/22/17 20:59 Future Hold 02/24/17 08:23 100 MG Polyethylene (Miralax Powder Packet) 17 gm DAILY PO 02/21/17 09:00 03/23/17 08:59 03/01/17 08:50 17 GM Amiodarone HCl (Cordarone Tab) 200 mg BID PO 02/21/17 21:00 03/23/17 20:59 Future hold 03/03/17 08:45 200 MG Hydromorphone HCl (Dilaudid Inj) 1 mg Q4 PRN IV 02/22/17 14:00 03/08/17 13:59 02/26/17 20:31 1 MG Miscellaneous Information (Consult Glycemic Management Pharmacy) 1 ea UD PRN N/A 02/22/17 15:30 03/24/17 15:29 Pantoprazole Sodium (Protonix Tab) 40 mg QAM PO 02/28/17 09:00 03/30/17 08:59 03/03/17 08:46 40 MG Apixaban (Eliquis Tab) 5 mg BID PO 02/27/17 18:00 03/29/17 17:59 03/03/17 08:46 5 MG Insulin Aspart (novoLOG ASPART) SLIDING SCALE ACHS SC 02/27/17 21:00 03/29/17 20:59 03/03/17 08:50 3 UNITS Albuterol/ Ipratropium (Duoneb) 3 ml QIDR INH 02/28/17 08:00 03/30/17 07:59 03/03/17 07:30 3 ML Metoprolol Tartrate (Lopressor Tab) 12.5 mg BID PO 02/28/17 21:00 03/30/17 20:59 03/03/17 08:46 12.5 MG Insulin Glargine (Lantus Solostar Pen) 5 units QPM SC 03/01/17 21:00 03/31/17 20:59 03/02/17 22:25 5 UNITS Potassium Chloride (Klor-Con Tab) 20 meq QAM PO 03/03/17 09:00 04/02/17 08:59 03/03/17 08:46 20 MEQ Magnesium Chloride (Slow-Mag Tab) 64 mg BID PO 03/02/17 21:00 04/01/17 20:59 03/02/17 22:20 64 MG Acetaminophen (Tylenol Tab) 650 mg Q4H PRN PO 03/02/17 11:00 04/01/17 10:59 Objective Vital Signs Date Time Temp Pulse Resp B/P (MAP) Pulse Ox O2 Delivery O2 Flow Rate FiO2 03/03/17 08:08 36.4 71 18 99/48 (65) 96 03/03/17 07:05 65 20 94 Nasal Cannula 5.0 03/03/17 04:00 Nasal Cannula 6.0 03/03/17 03:52 36.6 67 20 100/53 (69) 96 Nasal Cannula 5.0 Humidified Oxygen 03/03/17 00:00 Nasal Cannula 6.0 03/02/17 23:21 36.4 74 18 102/55 (71) 94 Nasal Cannula 5.0 Humidified Oxygen 03/02/17 20:00 Nasal Cannula 6.0 03/02/17 19:15 36.4 65 20 91/54 (66) 96 Nasal Cannula 5.0 03/02/17 18:40 71 18 95 Nasal Cannula 5.0 03/02/17 16:00 Nasal Cannula 6.0 03/02/17 15:24 36.4 58 19 91/40 (57) 97 Nasal Cannula 5.0 03/02/17 14:26 50 18 97 Nasal Cannula 4.0 03/02/17 12:00 Nasal Cannula 6.0 03/02/17 11:44 36.4 67 17 109/54 (72) 96 Nasal Cannula 5.0 03/02/17 11:09 53 18 99 Nasal Cannula 4.0 Physical Exam General Appearance: no apparent distress Respiratory/Chest: no respiratory distress, no accessory muscle use, + decreased breath sounds Cardiovascular: regular rate, rhythm, no murmur Extremities: + pertinent finding (+1 pitting edema b/l LE) Neurologic/Psychiatric: no motor/sensory deficits, alert, + depressed affect Laboratory Results Last 24 Hours Test 03/02/17 11:28 03/02/17 16:34 03/02/17 20:35 03/03/17 06:12 Bedside Glucose 130 mg/dl 81 mg/dl 164 mg/dl White Blood Count 5.95 K/uL Red Blood Count 3.78 M/uL Hemoglobin 12.1 g/dL Hematocrit 38.1 % Mean Corpuscular Volume 100.8 fL Mean Corpuscular Hemoglobin 32.0 pg Mean Corpuscular Hemoglobin Concent 31.8 g/dl RDW Standard Deviation 57.9 fL RDW Coefficient of Variation 16.2 % Platelet Count 235 K/uL Mean Platelet Volume 10.7 fL Sodium Level 142 mmol/L Potassium Level 3.9 mmol/L Chloride Level 107 mmol/L Carbon Dioxide Level 34 mmol/L Anion Gap 1.0 mmol/L Blood Urea Nitrogen 26 mg/dl Creatinine 1.11 mg/dl Est Creatinine Clear Calc Drug Dose 64.1 ml/min Estimated GFR () 75.4 Estimated GFR (Non- 65.1 BUN/Creatinine Ratio 23.6 Random Glucose 113 mg/dl Calcium Level 8.5 mg/dl Magnesium Level 2.6 mg/dl Test 03/03/17 06:16 Bedside Glucose 104 mg/dl Assessment and Plan VTACH CARDIAC ARREST Ischemic Cardiomyopathy with EF ~ 25-30% 03/03 patient is doing well Plan is to continue Eliquis and amiodarone Lasix intermittently b-jeffry if BP allows stop Eliquis on Friday for BiV pacemaker on 03/05 appreciate cardiology input continue Eliquis and amiodarone given another dose of Lasix today monitor electrolytes, K >4 and Mg >2 b-jeffry if BP allows 03/01 amiodarone and Eliquis given one dose of Lasix; CXR suggests pleural effusions bilaterally, no pneumonia plan for biventricular pacer on Friday hold Eliquis on Friday low dose b-jeffry 02/28 amiodarone and Eliquis metoprolol if BP allows currently on a honey thick liquid diet 02/27 amiodarone drip stopped; PO amio started IV heparin stopped; Eliquis started should be started on a b-jeffry if blood pressure allows will await further recs by cardiology will transfer to ICU to tele 02/26 extubated amiodarone drip being started heparin drip being started b- jeffry to be restarted in 24hrs as per cardiology 02/25 doing well, intubated, but requiring less ventilation as per assistant golf course superintendent - possible extubation in AM 02/24 on CPAP trial cont daily weaning protocol once extubated , will need to be evaluated for AICD placement Cardiology following 02/23/17 : unable to tolerate CPAP trial cont daily weaning protocol neurologically much improved , awake and alert , following commands 02/22/17: remains intubated , failed CPAP trial today CXray no pneumothorax noted ,satisfactory line placement -rt jugular CVP terminates at the brachiocephalic /SVC junction rt sided pleural catheter unchanged position mild central pulmonary congestion ordered 40 mg IV Lasix by Dr Porras on Amiodarone 200 mg VIA OG tube BID on Dopamine gtt Lopressor not initiated due to hypotensive Cardiology following 02/21/17 : remains intubated , off pressors on Amiodarone 200 mg per G-tube twice a day. IV heparin D/yaima on Eliquis 5 mg BID via G tube appreciate input form Cardiology and Slurry Worker 02/20 : remains intubated continued CPAP trial 02/19/17 : taken off Hypothermic protocol , Body core temp at normal 37.5 started to wean off sedation ( required large amount of sedation : Fentanyl @ 200 mcq, Versed @ 10mg/h ) cont CPAP trial appreciate input /help from Slurry Worker rt sided Chest tube remains in air seal converted to sinus rhythm /rate controlled @ 60's , on Amiodarone gtt improved Qtc on IV Heparin gtt on Dobutamine and Levophed gtt if pt able to recover enough to be extubated without neurological deficit will benefit with AICD placement during this hospital cardiology following 02/18/2017: HX of CAD with ischemic cardiomyopathy , 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 developed pneumothorax with extensive Rt sided sub q emphysema due to CPR Cxray shows 02/16/17 : Rt sided pneumothorax with max pleural separation of 1.4 cm s/p rt right chest tube placement while in ICU , cardiac rhythm changed to Afib on amiodarone gtt /IV heparin started due arrhythmia -Afib appreciate input form Cardiology warming process started this morning appreciate help and input form the assistant golf course superintendent if pt is able to recover with adequate neurological capacity will need AICD placement COPD and chronic respiratory failure underlying COPD (smoked 1PPD for around 60 years) on chronic O2 at home - around 2L chronically will need O2 on discharge will need nebulizer machine and meds on discharge should have inhaler on discharge as well GERD/Hiatal Hernia continue Protonix AFIB Amiodarone + Eliquis paroxysmal Afib due to cardiogenic shock / hypoxia ACUTE CVA 02/25 cont. Eliquis for now MRI of brain 02/21/17 Findings concerning for a punctate focus of ischemia at the junction of the right inferior jeannie and medulla. This may represent a small lacunar infarct versus a punctate embolic infarct. No evidence of anoxic brain injury. possible cardiogenic emboli /pt been started on IV heparin since admission -pt is on Eliquis via NG tube neurology following pt is showing good prognosis factor with improve neurological alertness continue weaning protocol from vent will need life long anticoagulation ELEVATED TROPONIN low LVEF at around 25-30% pt. with v-tach and cardiac arrest on admission due to Vtach cardiac arrest /aggressive CPR doubt due to acute [place] /atherothrombotic plaque rupture Kris 0.40-> 10-> 11-> 8.4 ECHO 02/16/17 : thinning and scar of the inferior base, posterior and inferolateral ye. Septal motion is consistent with conduction abnormality. moderate apical wall hypokinesis. inferior wall akinesis. posterior wall akinesis. Ejection Fraction = 25-30%. ECHO unchanged from prior study on 12/2016 Cardiology following closely ROBERTO ON CKD STAGE 3 resolved , Cr improved 1.06 due to Cardiac arrest /hypoperfusion of organs TYPE 2 DM insulin sliding scale LACTIC ACIDOSIS resolved Lactic acid 1.2 -after adequate tissue perfusion establish with Hypothermic protocol /pressors lactic acid was > 2 , with out any evidence of infection or sepsis due to Cardiogenic shock /organ /tissue hypoperfusion Supportive care provided with IV pressors /Hypothermic protocol DVT PROPHYLAXIS Eliquis FULL CODE
[2017-03-03] MEDS: MAGNESIUM CHLORIDE 64MG DELAYED REL TAB PO SCH ×2 (10:30→20:28)
[2017-03-03] MEDS ORDERED: FUROSEMIDE INJ 40 MG in SYRINGE 0 ML IV ONE (12:00)
--- NOTE | 2017-03-03 12:51 | PROGRESS NOTE ---
DATE: 03/03/2017 FOLLOWUP VISIT SUBJECTIVE: The patient is a 76-year-old with a history of ischemic cardiomyopathy and estimated left ventricular ejection fraction of 30%-35%. He was fitted with a LifeVest in December with plans for followup primary prevention ICD. However, he presented with a cardiac arrest. He received several shocks from his vest and prolonged CPR in the Emergency Department. He has had a prolonged hospital stay including a lengthy intubation. He has been extubated and recovering in the medical ICU. This week, he is to have a biventricular pacemaker/ICD. We have been diuresing him with good results. He was a bit volume overloaded coming out of the ICU. He has no new complaints today. OBJECTIVE: GENERAL: He is alert and oriented, comfortably sitting in a chair. VITAL SIGNS: Blood pressure is 100/60, pulse is regular at 70 beats per minute. He is afebrile. HEENT: He is normocephalic. Pupils are equal and reactive to light. Extraocular muscles are intact bilaterally. NECK: The neck veins are flat. Carotids have good upstrokes bilaterally without bruits. Thyroid is nonpalpable. RESPIRATORY: Breath sounds equal bilaterally and clear to auscultation. CARDIOVASCULAR: Heart has a regular rhythm. Normal S1, S2. No S3, S4. No cardiac rubs or murmurs. GASTROINTESTINAL: Abdomen is soft, nontender without organomegaly. EXTREMITIES: Free of edema, digit clubbing, or cyanosis. NEUROLOGIC: Grossly intact. SKIN: Warm to touch. LYMPH NODES: Negative to palpation. IMPRESSION: 1. Cardiac arrest survivor. 2. Ischemic cardiomyopathy with systolic heart failure. 3. Prolonged intubation, currently on thickened liquids. 4. Several rib fractures due to cardiopulmonary resuscitation with a pneumothorax, chest tube removed. RECOMMENDATIONS: As outlined above, the patient will receive a biventricular/ICD this week. His lungs have improved with diuresis and the stop of IV fluids. I will give him 1 additional dose of Lasix IV today. We will stop his Eliquis in anticipation of his upcoming procedure on Friday. Otherwise, the patient is stable and slowly improving.
[2017-03-03] MEDS: INSULIN GLARGINE SOLOSTAR 100 UNITS/ML 3 ML PEN SC SCH (20:33)
[2017-03-04] VITALS (13 sets, daily range): BP systolic 94–121; BP diastolic 49–62; PULSE 59–79; TEMP 36.3–36.9; O2SAT 92–100
[2017-03-04 05:46] LABS: HEMATOCRIT 38.3 % (42-52); HEMOGLOBIN 12.3 g/dL (14.0-18.0); MEAN CELL VOLUME 100.5 fL (80-100); MEAN CORPUSCULAR HEMOGLOBIN 32.3 pg (25-34); MEAN CORPUSCULAR HGB CONC 32.1 g/dl (32-36); MEAN PLATELET VOLUME 11.1 fL (7.4-10.4); PLATELET COUNT 248 K/uL (130-400); RED CELL DISTRIBUTION WIDTH CV 16.5 % (11.5-14.5); RED CELL DISTRIBUTION WIDTH SD 57.7 fL (36.4-46.3); WHITE BLOOD COUNT 7.13 K/uL (4.8-10.8)
[2017-03-04 06:22] LABS: CALCIUM 8.3 mg/dl (8.5-10.1); CREATININE 1.28 mg/dl (0.60-1.40); POTASSIUM 3.8 mmol/L (3.5-5.1)
[2017-03-04] MEDS: ALBUT/IPRATROP 3MG/0.5MG NEB 3 ML VIAL INH SCH ×4 (07:06→19:18)
[2017-03-04] MEDS: PANTOprazole SOD 40 MG TAB PO SCH (08:02)
[2017-03-04] MEDS: MAGNESIUM CHLORIDE 64MG DELAYED REL TAB PO SCH ×2 (08:02→21:10)
[2017-03-04] MEDS: AMIODARONE 200 MG TAB PO SCH ×3 (08:02→21:12)
[2017-03-04] MEDS: METOPROLOL TARTRATE 25 MG TAB PO SCH ×2 (08:02→21:00)
[2017-03-04] MEDS: POTASSIUM CHLORIDE 20 MEQ TABCR PO SCH (08:03)
[2017-03-04] MEDS: INSULIN ASPART 100 UNITS/ML 3 ML PEN SC SCH ×5 (08:12→22:19)
[2017-03-04] MEDS: POLYETHYLENE (MIRALAX) 17 GM PACK PO SCH (09:00)
--- NOTE | 2017-03-04 09:11 | Anesthesiology Progress Note ---
Anesthesia Progress Note Date of Service Mar 04, 2017. Progress Notes Pt is scheduled for a biventricular implantable cardiac defibrillator on . The pt is a 76M with a complex medical history. The pt has a h/o COPD, CAD s /p NM, p. afib, ischemic cardiomyopathy, CHF, PVD, HL, GERD, DM, CKD, former smoker. The pt was admitted 2/2 sustaining a vtach cardiac arrest. The pt was successfully resuscitated s/p hypothermic protocol. The pt has a small lacunar infarct per MRI and s/p PTX and rib fractures 2/2 chest compressions. He was extubated on 02/26/17. The pt's most recent CXR, echo, EKG, and labs were reviewed. Upon examination, the pt is recovering and his vital signs have stabilized. The pt is an acceptable candidate for MAC +/- arterial line. I consented the pt for anesthesia. I addressed the pt's questions and concerns.
--- NOTE | 2017-03-04 09:25 | Cardiology Follow-Up ---
Subjective General Date of Service: Mar 04, 2017. Chief Complaint: Cardiac arrest Pt evaluation today including: conversation w/ patient, physical exam, chart review, lab review, review of studies, review of inpatient medication list History of Present Illness Patient seen and examined. Discussed with Nurse. Chart, medications, and telemetry reviewed. + Cough, chest congestion, and right rib discomfort. + Peripheral edema Telemetry: Sinus at 74 bpm with ectopy in singles. No significant bradycardia. No sustained arrhythmias. Allergies Coded Allergies: Lisinopril (Verified Adverse Reaction, Intermediate, HIGH POTASSIUM LEVELS , 03/01/17) Atorvastatin (Verified Adverse Reaction, Mild, muscle weakness in legs, ) Social History Smoking Status: Former Smoker Hx Tobacco Use In Past Year?: Yes Hx Alcohol Use - Type And Amou: Yes (Social) Hx Substance Use - Type And Am: No Problem List Medical Problems: (1) Elevated troponin Status: Acute (2) Pneumothorax on right Status: Acute (3) Pulmonary edema Status: Acute (4) Rib fractures Status: Acute (5) Ventricular tachycardia Status: Acute Physical Exam Vital Signs Last Vital Signs Documentation Date Time Temp Pulse Resp B/P (MAP) Pulse Ox O2 Delivery O2 Flow Rate FiO2 03/04/17 08:43 36.9 69 20 117/53 (74) 95 03/04/17 08:00 Nasal Cannula 3.0 02/26/17 12:00 40 Physical Exam Constitutional: Level of Distress: acutely ill, chronically ill Psychiatric: Mental Status: active & alert Orientation: to time, to place, to person Memory: recent memory normal, remote memory normal Head: normocephalic, atraumatic Eyes: Pupils: PERRLA Neck: pertinent finding (Elevated JVP) Lungs: Auscultation: no wheezing, no rales/crackles, deminished air movement, decreased breath sounds, rhonchi Cardiovascular: Heart Auscultation: RRR, no rubs, II/ SHANNON, gallop Peripheral Pulses: Dorsalis Pedis Pulse: absent on the left, absent on the right Abdomen: Bowel Sounds: normal Inspection & Palpation: soft Extremities: no cyanosis, no clubbing, edema (2+) Neurologic: Cranial Nerves: grossly intact Assessment and Plan Assessment and Plan Out of hospital cardiac arrest status post appropriate defibrillation via a life vest Complex resuscitation in house complicated by arrhythmias, congestive heart failure, several bilateral rib fractures, pneumothorax, electrolyte disturbances , prolonged intubation. Known severe ischemic cardiomyopathy with systolic heart failure, EF 25-30%, NYHA Functional Class III with a left bundle branch block, QRS duration greater than 150 ms. RECOMMENDATIONS: Low dose IV furosemide today Add spironolactone 12.5 mg/day NPO after midnight except for medications Holding Eliquis; resume post device implantation as per Dr. Blanc. Biventricular pacemaker defibrillator implantation in AM Continue beta-jeffry and amiodarone as presently prescribed. Titrate evidence based heart failure medications post device implantation. CARDIOLOGY ATTENDING ADDENDUM: The patient was seen and personally examined. Agree with Ariel Bangura PA-C's findings and plans as documented above. Laboratory Results Last 24 Hours Test 03/03/17 11:08 03/03/17 15:52 03/03/17 20:32 03/04/17 05:24 Bedside Glucose 135 mg/dl 86 mg/dl 193 mg/dl White Blood Count 7.13 K/uL Red Blood Count 3.81 M/uL Hemoglobin 12.3 g/dL Hematocrit 38.3 % Mean Corpuscular Volume 100.5 fL Mean Corpuscular Hemoglobin 32.3 pg Mean Corpuscular Hemoglobin Concent 32.1 g/dl RDW Standard Deviation 57.7 fL RDW Coefficient of Variation 16.5 % Platelet Count 248 K/uL Mean Platelet Volume 11.1 fL Sodium Level 139 mmol/L Potassium Level 3.8 mmol/L Chloride Level 105 mmol/L Carbon Dioxide Level 30 mmol/L Anion Gap 4.0 mmol/L Blood Urea Nitrogen 29 mg/dl Creatinine 1.28 mg/dl Est Creatinine Clear Calc Drug Dose 55.6 ml/min Estimated GFR () 63.5 Estimated GFR (Non- 54.8 BUN/Creatinine Ratio 22.9 Random Glucose 119 mg/dl Calcium Level 8.3 mg/dl Magnesium Level 2.2 mg/dl Test 03/04/17 06:42 Bedside Glucose 114 mg/dl
[2017-03-04] MEDS ORDERED: FUROSEMIDE INJ 20 MG in SYRINGE 0 ML IV ONE (11:00)
[2017-03-04] MEDS: SPIRONOLACTONE 25 MG TAB PO SCH (11:22)
--- NOTE | 2017-03-04 18:13 | Progress Note ---
Internal Med Progress Note Date of Service: Mar 04, 2017. Provider Documentation: SUBJECTIVE: Patient seen and examined at bedside. No acute complaints. We have discussed the hoarseness of his voice and his eating OBJECTIVE: Exam: General-no apparent distress Eyes- EOMI Neck-trachea midline, no JVD Lungs-no respiratory distress, no accessory muscle use, on 3L/min nasal cannula Heart- regular rate Abdomen- soft, nondistended, + bowel sounds Extremities- bilateral lower extremity edema worse ASSESSMENT & PLAN: Hospital Course to Date s/p VTACH CARDIAC ARREST Ischemic cardiomyopathy with systolic heart failure Atrial Fibrillation 03/04 Cardiology service has stopped Eliquis for BiV pacemaker tomorrow, Cardiology has ordered 1 dose of IV Lasix today 03/03 on Eliquis and amiodarone, Lasix intermittently, b-jeffry if BP allows 03/02 appreciate cardiology input continue Eliquis and amiodarone given another dose of Lasix today monitor electrolytes, K >4 and Mg >2 b-jeffry if BP allows 03/01 amiodarone and Eliquis given one dose of Lasix; CXR suggests pleural effusions bilaterally, no pneumonia plan for biventricular pacer on Friday hold Eliquis on Friday low dose b-jeffry 02/28 amiodarone and Eliquis metoprolol if BP allows currently on a honey thick liquid diet 02/27 amiodarone drip stopped; PO amio started IV heparin stopped; Eliquis started should be started on a b-jeffry if blood pressure allows will await further recs by cardiology will transfer to ICU to [facility] 02/26 extubated amiodarone drip being started heparin drip being started b- jeffry to be restarted in 24hrs as per cardiology 02/25 doing well, intubated, but requiring less ventilation as per track superintendent - possible extubation in AM 02/24 on CPAP trial cont daily weaning protocol once extubated , will need to be evaluated for AICD placement Cardiology following 02/23/17 : unable to tolerate CPAP trial cont daily weaning protocol neurologically much improved , awake and alert , following commands 02/22/17: remains intubated , failed CPAP trial today CXray no pneumothorax noted ,satisfactory line placement -rt jugular CVP terminates at the brachiocephalic /SVC junction rt sided pleural catheter unchanged position mild central pulmonary congestion ordered 40 mg IV Lasix by Dr Porras on Amiodarone 200 mg VIA OG tube BID on Dopamine gtt Lopressor not initiated due to hypotensive Cardiology following 02/21/17 : remains intubated , off pressors on Amiodarone 200 mg per G-tube twice a day. IV heparin D/yaima on Eliquis 5 mg BID via G tube appreciate input form Cardiology and Head Machinist 02/20 : remains intubated continued CPAP trial 02/19/17 : taken off Hypothermic protocol , Body core temp at normal 37.5 started to wean off sedation ( required large amount of sedation : Fentanyl @ 200 mcq, Versed @ 10mg/h ) cont CPAP trial appreciate input /help from Head Machinist rt sided Chest tube remains in air seal converted to sinus rhythm /rate controlled @ 60's , on Amiodarone gtt improved Qtc on IV Heparin gtt on Dobutamine and Levophed gtt if pt able to recover enough to be extubated without neurological deficit will benefit with AICD placement during this hospital cardiology following 02/18/2017: HX of CAD with ischemic cardiomyopathy , CHF with combined systolic and diastolic HF ; EF < 30 % presented with Vtach cardiac arrest pt was placed on Zoll Life vest - became unresponsive at home , followed by shock therapy by life vest pt was shocked once by the life vest at home , and twice in ED developed Vtach Cardiac arrest -leading to CPR -admitted to ICU intubated/ started on Pressors -was placed on hypothermic protocol s/p right IJ central venous -placement by track superintendent A right radial arterial line was inserted for continuous monitoring of blood pressures while on multiple vasopressors. developed pneumothorax with extensive Rt sided sub q emphysema due to CPR Cxray shows 02/16/17 : Rt sided pneumothorax with max pleural separation of 1.4 cm s/p rt right chest tube placement while in ICU , cardiac rhythm changed to Afib on amiodarone gtt /IV heparin started due arrhythmia -Afib appreciate input form Cardiology warming process started this morning appreciate help and input form the track superintendent if pt is able to recover with adequate neurological capacity will need AICD placement ACUTE CVA, embolic stroke MRI of brain 02/21/17 Findings concerning for a punctate focus of ischemia at the junction of the right inferior jeannie and medulla. This may represent a small lacunar infarct versus a punctate embolic infarct. No evidence of anoxic brain injury. restart Eliquis after BiV pacemaker placed COPD, respiratory failure s/p extubation, Several rib fractures due to cardiopulmonary resuscitation with a pneumothorax, chest tube removed. has been having hoarseness of throat and dysphagia s/p extubation - followed by speech and swallow services, may need outpatient evaluation after BiV pacemaker placed when patient is discharged he will need oxygen, nebulizer machine, nebulizer medications, inhalers ROBERTO ON CKD STAGE 3 / Lactic Acidosis / Elevated Troponins have resolved TYPE 2 DM insulin sliding scale GERD/Hiatal Hernia continue Protonix DVT PROPHYLAXIS restart Eliquis after BiV pacemaker placed Vital Signs: Date Time Temp Pulse Resp B/P (MAP) Pulse Ox O2 Delivery O2 Flow Rate FiO2 03/04/17 16:34 36.3 64 20 97/58 (71) 92 Nasal Cannula 2.0 03/04/17 14:30 61 16 94 Nasal Cannula 2.0 03/04/17 12:10 36.8 66 20 121/52 (75) 99 03/04/17 12:00 Nasal Cannula 2.5 03/04/17 11:12 59 16 98 Nasal Cannula 3.0 03/04/17 08:43 36.9 69 20 117/53 (74) 95 03/04/17 08:00 Nasal Cannula 3.0 03/04/17 07:06 67 16 100 Nasal Cannula 3.0 03/04/17 04:00 Nasal Cannula 4.0 03/04/17 03:26 36.5 79 23 97/55 (69) 94 Nasal Cannula 3.0 Humidified Oxygen 03/04/17 00:54 36.4 69 21 104/53 (70) 96 Nasal Cannula 3.0 Humidified Oxygen 03/04/17 00:00 Nasal Cannula 4.0 03/03/17 20:00 Nasal Cannula 4.0 03/03/17 19:29 36.4 75 20 105/57 (73) 97 Nasal Cannula 3.0 03/03/17 19:07 68 16 92 Nasal Cannula 4.0 Lab Results: Results Past 24 Hours Test 03/03/17 20:32 03/04/17 05:24 03/04/17 06:42 03/04/17 11:21 Range/Units Bedside Glucose 193 114 142 70-99 mg/dl White Blood Count 7.13 4.8-10.8 K/uL Red Blood Count 3.81 4.7-6.1 M/uL Hemoglobin 12.3 14.0-18.0 g/dL Hematocrit 38.3 42-52 % Mean Corpuscular Volume 100.5 80-100 fL Mean Corpuscular Hemoglobin 32.3 25-34 pg Mean Corpuscular Hemoglobin Concent 32.1 32-36 g/dl RDW Standard Deviation 57.7 36.4-46.3 fL RDW Coefficient of Variation 16.5 11.5-14.5 % Platelet Count 248 130-400 K/uL Mean Platelet Volume 11.1 7.4-10.4 fL Sodium Level 139 136-145 mmol/L Potassium Level 3.8 3.5-5.1 mmol/L Chloride Level 105 98-107 mmol/L Carbon Dioxide Level 30 21-32 mmol/L Anion Gap 4.0 3-11 mmol/L Blood Urea Nitrogen 29 7-18 mg/dl Creatinine 1.28 0.60-1.40 mg/dl Est Creatinine Clear Calc Drug Dose 55.6 ml/min Estimated GFR () 63.5 Estimated GFR (Non- 54.8 BUN/Creatinine Ratio 22.9 10-20 Random Glucose 119 70-99 mg/dl Calcium Level 8.3 8.5-10.1 mg/dl Magnesium Level 2.2 1.8-2.4 mg/dl Test 03/04/17 17:35 Range/Units Bedside Glucose 139 70-99 mg/dl
[2017-03-04] MEDS: INSULIN GLARGINE SOLOSTAR 100 UNITS/ML 3 ML PEN SC SCH (21:08)
[2017-03-05] VITALS (12 sets, daily range): BP systolic 92–123; BP diastolic 44–65; PULSE 64–83; TEMP 36.3–36.6; O2SAT 92–99
[2017-03-05 05:59] LABS: HEMOGLOBIN 12.1 g/dL (14.0-18.0); MEAN CELL VOLUME 99.5 fL (80-100); MEAN CORPUSCULAR HEMOGLOBIN 32.5 pg (25-34); MEAN CORPUSCULAR HGB CONC 32.7 g/dl (32-36); MEAN PLATELET VOLUME 10.7 fL (7.4-10.4); PLATELET COUNT 218 K/uL (130-400); RED CELL DISTRIBUTION WIDTH CV 16.8 % (11.5-14.5); RED CELL DISTRIBUTION WIDTH SD 59.1 fL (36.4-46.3); WHITE BLOOD COUNT 5.91 K/uL (4.8-10.8)
[2017-03-05 06:47] LABS: ALBUMIN 2.3 gm/dl (3.4-5.0); CALCIUM 8.4 mg/dl (8.5-10.1); CREATININE 0.98 mg/dl (0.60-1.40); POTASSIUM 3.7 mmol/L (3.5-5.1); TOTAL PROTEIN 5.4 gm/dl (6.4-8.2)
[2017-03-05] MEDS: INSULIN ASPART 100 UNITS/ML 3 ML PEN SC SCH ×4 (07:00→21:56)
[2017-03-05] MEDS ORDERED: LIDOCAINE HCL 1% 20 ML VIAL ONE (07:16)
[2017-03-05] MEDS ORDERED: BUPIVACAINE 0.5 % 5 MG/1 ML MPF 30ML VIAL ONE (07:16)
[2017-03-05] MEDS ORDERED: BACITRACIN 50000 UNIT VIAL ONE (07:17)
[2017-03-05] MEDS: ALBUT/IPRATROP 3MG/0.5MG NEB 3 ML VIAL INH SCH ×3 (07:31→15:49)
[2017-03-05] MEDS ORDERED: MIDAZOLAM HCL 1 MG/ML 2ML VIAL ONE (07:42)
[2017-03-05] MEDS ORDERED: PROPOFOL IV EMULSION 10 MG/ML 20 ML VIAL IV ONE ×2 (07:42→11:42)
[2017-03-05] MEDS ORDERED: LIDOCAINE HCL 2% 2 ML VIAL (20MG/ML) ONE ×2 (07:42→11:42)
[2017-03-05] MEDS ORDERED: FENTANYL CITRATE INJ 50 MCG/1 ML 2 ML VIAL ONE ×2 (07:43→08:56)
--- NOTE | 2017-03-05 07:58 | History & Physical Bridge Note ---
H&P Re-Evaluation Bridge Note: I have examined the patient, reviewed the History & Physical and in the interval since the performance of the History & Physical I have noted the following changes of clinical significance: Pt s/p cardiac arrest with ICM, LBBB. For BiV ICD
[2017-03-05] MEDS ORDERED: KETAMINE HCL INJ 50 MG/ML 10 ML VIAL ONE (08:36)
[2017-03-05] MEDS: POLYETHYLENE (MIRALAX) 17 GM PACK PO SCH (09:00)
--- NOTE | 2017-03-05 11:43 | [facility] Post Operative Brief Note ---
Immediate Operative Summary Operative Date Mar 05, 2017. 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
--- NOTE | 2017-03-05 13:38 | Anesthesiology Progress Note ---
Anesthesia Post Op Note Date & Time Mar 05, 2017 at 13:38 Vital Signs Pain Intensity: 0.0 Vital Signs Past 12 Hours Date Time Temp Pulse Resp B/P (MAP) Pulse Ox O2 Delivery O2 Flow Rate FiO2 03/05/17 13:00 83 23 93 03/05/17 12:45 83 25 123/63 (68) 96 03/05/17 12:30 79 20 99 03/05/17 12:15 81 27 111/60 (68) 92 03/05/17 12:05 83 25 114/65 (87) 97 03/05/17 12:00 Nasal Cannula 4.0 Humidified Oxygen 03/05/17 11:40 90 16 117/69 (85) 95 Nasal Cannula 4 03/05/17 11:35 92 16 120/71 (87) 95 Nasal Cannula 4 03/05/17 11:30 90 16 117/68 (84) 92 Nasal Cannula 4 03/05/17 11:25 90 16 118/68 (85) 92 Nasal Cannula 4 03/05/17 11:20 91 16 132/82 (99) 92 Nasal Cannula 4 03/05/17 11:15 91 16 133/75 (94) 92 Nasal Cannula 4 03/05/17 11:10 90 16 130/75 (93) 92 Nasal Cannula 4 03/05/17 07:31 78 16 98 Nasal Cannula 2.0 03/05/17 07:20 Nasal Cannula 4.0 Humidified Oxygen 03/05/17 04:00 Nasal Cannula 4.0 Humidified Oxygen 03/05/17 03:58 36.3 68 18 97/54 (68) 95 Nasal Cannula 2.0 Notes Mental Status: alert / awake / arousable, participated in evaluation Nausea / Vomiting: adequately controlled Pain: adequately controlled Airway Patency, RR, SpO2: stable & adequate BP & HR: stable & adequate Hydration State: stable & adequate Anesthetic Complications: no major complications apparent
[2017-03-05] MEDS: METOPROLOL TARTRATE 25 MG TAB PO SCH ×2 (13:39→19:55)
[2017-03-05] MEDS: MAGNESIUM CHLORIDE 64MG DELAYED REL TAB PO SCH ×2 (13:39→19:57)
[2017-03-05] MEDS: POTASSIUM CHLORIDE 20 MEQ TABCR PO SCH (13:40)
[2017-03-05] MEDS: PANTOprazole SOD 40 MG TAB PO SCH (13:54)
[2017-03-05] MEDS: SPIRONOLACTONE 25 MG TAB PO SCH (13:55)
[2017-03-05] MEDS: AMIODARONE 200 MG TAB PO SCH ×2 (13:55→19:56)
--- NOTE | 2017-03-05 18:10 | Progress Note ---
Internal Med Progress Note Date of Service: Mar 05, 2017. Provider Documentation: SUBJECTIVE: s/p pacemaker placement. Patient awake and alert. OBJECTIVE: Exam: General-no apparent distress Eyes- EOMI Neck-trachea midline, no JVD Lungs-no respiratory distress, no accessory muscle use, on breathing mask Heart- regular rate Abdomen- soft, nondistended, + bowel sounds Shoulder: dressing over left shoulder Extremities- bilateral lower extremity edema worse ASSESSMENT & PLAN: HX of CAD with ischemic cardiomyopathy,CHF with combined systolic and diastolic HF ; EF < 30 % presented with Vtach cardiac arrest pt was placed on Zoll Life vest - became unresponsive at home, followed by shock therapy by life vest pt was shocked once by the life vest at home , and twice in ED developed Vtach Cardiac arrest -leading to CPR Hospital Course to Date 02/18/2017: admitted to ICU intubated/ started on Pressors , was placed on hypothermic protocol s/p right IJ central venous, right radial arterial line was inserted for continuous monitoring of blood pressures while on multiple vasopressors, developed pneumothorax and s/p right chest tube placement, while in ICU , cardiac rhythm changed to Afib on amiodarone gtt /IV heparin started due arrhythmia AICD placement 02/19/17 taken off Hypothermic protocol MRI of brain 02/21/17 Findings concerning for a punctate focus of ischemia at the junction of the right inferior jeannie and medulla. This may represent a small lacunar infarct versus a punctate embolic infarct. No evidence of anoxic brain injury. 02/25 chest tube discontinued 02/26 extubated 02/27 amiodarone drip stopped; PO amiodarone started IV heparin stopped; Eliquis started, transfer from ICU to telemetry 03/05 BiV pacemaker placed, restart Eliquis Summary s/p VTACH CARDIAC ARREST (ROBERTO ON CKD STAGE 3 / Lactic Acidosis / Elevated Troponins have resolved), Respiratory Failure with intubation and then extubation, Several rib fractures due to cardiopulmonary resuscitation with a pneumothorax with chest tube placed and has been removed, Ischemic cardiomyopathy with systolic heart failure, Atrial Fibrillation, Biventricular pacemaker placed For the above cardiac-respiratory issues continue with amiodarone, Eliquis, metoprolol, Biventricular pacemaker for heart rate and rhythm control continue metoprolol and spironolactone for the CHF, likely will need discharge regimen of Lasix when patient is discharged he will need oxygen, nebulizer machine, nebulizer medications, inhalers for COPD Other remaining health issues: Hoarseness of throat and dysphagia s/p extubation - followed by speech and swallow services, may need outpatient evaluation after BiV pacemaker placed TYPE 2 DM HbA1c 6.9 does not seem insulin dependent based on HbA1c, likely can start oral metformin GERD/Hiatal Hernia continue Protonix DVT PROPHYLAXIS restart Eliquis Disposition: Patient has family members who would like to take him to their home and have him obtain outpatient physical rehabilitation Follow up appointments 03/11/2017 1:00 PM Darshan White DO Family [facility] 04/02/2017 3:00 PM Dylon Briggs DO Cardiology, [facility] Vital Signs: Date Time Temp Pulse Resp B/P (MAP) Pulse Ox O2 Delivery O2 Flow Rate FiO2 03/05/17 16:00 Nasal Cannula 4.0 Humidified Oxygen 03/05/17 15:49 76 16 99 Mask 4.0 03/05/17 15:15 36.4 70 22 94/53 (67) 97 Nasal Cannula 5.0 03/05/17 13:00 83 23 93 03/05/17 12:45 83 25 123/63 (68) 96 03/05/17 12:30 79 20 99 03/05/17 12:15 81 27 111/60 (68) 92 03/05/17 12:05 83 25 114/65 (87) 97 03/05/17 12:00 Nasal Cannula 4.0 Humidified Oxygen 03/05/17 11:40 90 16 117/69 (85) 95 Nasal Cannula 4 03/05/17 11:35 92 16 120/71 (87) 95 Nasal Cannula 4 03/05/17 11:30 90 16 117/68 (84) 92 Nasal Cannula 4 03/05/17 11:25 90 16 118/68 (85) 92 Nasal Cannula 4 03/05/17 11:20 91 16 132/82 (99) 92 Nasal Cannula 4 03/05/17 11:15 91 16 133/75 (94) 92 Nasal Cannula 4 03/05/17 11:10 90 16 130/75 (93) 92 Nasal Cannula 4 03/05/17 07:31 78 16 98 Nasal Cannula 2.0 03/05/17 07:20 Nasal Cannula 4.0 Humidified Oxygen 03/05/17 04:00 Nasal Cannula 4.0 Humidified Oxygen 03/05/17 03:58 36.3 68 18 97/54 (68) 95 Nasal Cannula 2.0 03/05/17 00:00 Nasal Cannula 4.0 Humidified Oxygen 03/04/17 23:52 36.4 65 17 106/51 (69) 94 Nasal Cannula 2.0 Humidified Oxygen 03/04/17 21:12 66 94/49 (64) 93 Nasal Cannula 3.0 Humidified Oxygen 03/04/17 20:38 36.3 65 20 109/62 (78) 99 Nasal Cannula 2.0 03/04/17 20:00 Nasal Cannula 3.0 Humidified Oxygen 03/04/17 19:18 76 16 95 Nasal Cannula 2.0 Lab Results: Results Past 24 Hours Test 03/04/17 20:27 03/05/17 05:42 03/05/17 06:26 03/05/17 11:54 Range/Units Bedside Glucose 159 108 158 70-99 mg/dl White Blood Count 5.91 4.8-10.8 K/uL Red Blood Count 3.72 4.7-6.1 M/uL Hemoglobin 12.1 14.0-18.0 g/dL Hematocrit 37.0 42-52 % Mean Corpuscular Volume 99.5 80-100 fL Mean Corpuscular Hemoglobin 32.5 25-34 pg Mean Corpuscular Hemoglobin Concent 32.7 32-36 g/dl RDW Standard Deviation 59.1 36.4-46.3 fL RDW Coefficient of Variation 16.8 11.5-14.5 % Platelet Count 218 130-400 K/uL Mean Platelet Volume 10.7 7.4-10.4 fL Sodium Level 138 136-145 mmol/L Potassium Level 3.7 3.5-5.1 mmol/L Chloride Level 104 98-107 mmol/L Carbon Dioxide Level 31 21-32 mmol/L Anion Gap 3.0 3-11 mmol/L Blood Urea Nitrogen 27 7-18 mg/dl Creatinine 0.98 0.60-1.40 mg/dl Est Creatinine Clear Calc Drug Dose 72.6 ml/min Estimated GFR () 87.7 Estimated GFR (Non- 75.6 BUN/Creatinine Ratio 28.1 10-20 Random Glucose 113 70-99 mg/dl Calcium Level 8.4 8.5-10.1 mg/dl Magnesium Level 2.1 1.8-2.4 mg/dl Total Bilirubin 0.5 0.2-1 mg/dl Aspartate Amino Transf (AST/SGOT) 13 15-37 U/L Alanine Aminotransferase (ALT/SGPT) 23 12-78 U/L Alkaline Phosphatase 120 45-117 U/L Total Protein 5.4 6.4-8.2 gm/dl Albumin 2.3 3.4-5.0 gm/dl Globulin 3.1 2.5-4.0 gm/dl Albumin/Globulin Ratio 0.7 0.9-2 Test 03/05/17 16:17 Range/Units Bedside Glucose 126 70-99 mg/dl
[2017-03-05] MEDS ORDERED: NEBMAC (18:42)
[2017-03-05] MEDS ORDERED: IPRATROPIUM BROMIDE/ALBUTEROL respimat INH INH PRN (18:45)
[2017-03-05] MEDS ORDERED: ALBUT/IPRATROP 3MG/0.5MG NEB 3 ML VIAL INH PRN (18:45)
[2017-03-05] MEDS ORDERED: FUROSEMIDE INJ 40 MG in SYRINGE 0 ML IV ONE (19:15)
--- NOTE | 2017-03-05 19:16 | DIAGNOSTIC IMAGING REPORT ---
SINGLE VIEW CHEST CLINICAL HISTORY: Hypoxia. FINDINGS: An AP, portable, upright chest radiograph is compared to study dated 03/01/2017. The examination is degraded by portable technique and patient rotation. A 3-lead cardiac AICD is new from previous. The heart is enlarged and there is atherosclerotic calcification of the thoracic aorta. There is pulmonary vascular congestion with evidence of interstitial edema. There are layering pleural effusions with bibasilar consolidation, right larger than left. No pneumothorax is seen. The skeletal structures are osteopenic. There are age indeterminant but acute appearing right anterior fourth, fifth, and sixth rib fractures. Subcutaneous emphysema is noted in the right chest wall. IMPRESSION: 1. Cardiomegaly and AICD. There is evidence of congestive failure and interstitial edema. 2. There are layering pleural effusions with bibasilar consolidation. This likely represents atelectasis. Correlate clinically for evidence of superimposed pneumonia. 3. There are age indeterminant but acute appearing right anterior rib fractures as above. Clinical correlation will be required. Electronically signed by: Davon Barragan M.D. 03/05/2017 7:14 PM Dictated Date/Time: 03/05/2017 7:12 PM
[2017-03-05] MEDS: APIXABAN 2.5 MG TAB PO SCH (19:56)
[2017-03-05] MEDS ORDERED: LEVALBUTEROL/IPRATROPIUM NEB INH SCH (21:00)
[2017-03-06] VITALS (13 sets, daily range): BP systolic 91–107; BP diastolic 44–53; PULSE 61–92; TEMP 36.3–36.8; O2SAT 93–100
[2017-03-06] MEDS: IPRATROPIUM BROMIDE NEB SOLN 0.02% 2.5 ML VIAL INH SCH ×4 (01:38→21:27)
[2017-03-06] MEDS: LEVALBUTEROL 0.63MG/3 ML NEB INH SCH ×4 (01:38→21:27)
[2017-03-06 05:51] LABS: BASO % 0.1 %; BASO ABS # 0.01 K/uL (0-0.2); EOS % 1.9 %; EOS ABS # 0.14 K/uL (0-0.5); HEMATOCRIT 34.4 % (42-52); HEMOGLOBIN 11.1 g/dL (14.0-18.0); IG# 0.02 K/uL (0.00-0.02); LYMPH % 16.4 %; LYMPH ABS # 1.21 K/uL (1.2-3.4); MEAN CELL VOLUME 99.4 fL (80-100); MEAN CORPUSCULAR HEMOGLOBIN 32.1 pg (25-34); MEAN CORPUSCULAR HGB CONC 32.3 g/dl (32-36); MEAN PLATELET VOLUME 10.9 fL (7.4-10.4); MONO % 7.7 %; MONO ABS # 0.57 K/uL (0.11-0.59); NEUT % 73.6 %; NEUT ABS # 5.41 K/uL (1.4-6.5); PLATELET COUNT 190 K/uL (130-400); RED CELL DISTRIBUTION WIDTH CV 16.8 % (11.5-14.5); RED CELL DISTRIBUTION WIDTH SD 58.7 fL (36.4-46.3); WHITE BLOOD COUNT 7.36 K/uL (4.8-10.8)
[2017-03-06 06:23] LABS: ALBUMIN 2.3 gm/dl (3.4-5.0); CALCIUM 8.1 mg/dl (8.5-10.1); POTASSIUM 3.8 mmol/L (3.5-5.1)
[2017-03-06 06:28] LABS: TOTAL PROTEIN 5.4 gm/dl (6.4-8.2)
[2017-03-06] MEDS: INSULIN ASPART 100 UNITS/ML 3 ML PEN SC SCH ×4 (07:00→20:31)
--- NOTE | 2017-03-06 07:29 | DIAGNOSTIC IMAGING REPORT ---
CHEST 2 VIEWS ROUTINE CLINICAL HISTORY: EXACT TIME ORDERED Evaluate for pneumothorax and lead placement COMPARISON STUDY: 03/05/2017 FINDINGS: Slight improvement in aeration right lung base. Small residual right-sided pleural effusion. Bipolar cardiac pacemaker/defibrillator with leads in good position. No significant post procedure pneumothorax. Left lung is generally clear. Atelectasis left base is improved from the prior study. IMPRESSION: Improved aeration of the lung bases bilaterally. Cardiac pacemaker/defibrillator leads in good position. No evidence pneumothorax. The above report was generated using voice recognition software. It may contain grammatical, syntax or spelling errors. Electronically signed by: Ariel iMller M.D. 03/06/2017 7:28 AM Dictated Date/Time: 03/06/2017 7:26 AM
[2017-03-06] MEDS: PANTOprazole SOD 40 MG TAB PO SCH (08:22)
[2017-03-06] MEDS: MAGNESIUM CHLORIDE 64MG DELAYED REL TAB PO SCH ×2 (08:22→20:43)
[2017-03-06] MEDS: AMIODARONE 200 MG TAB PO SCH ×2 (08:23→20:43)
[2017-03-06] MEDS: POLYETHYLENE (MIRALAX) 17 GM PACK PO SCH (08:24)
[2017-03-06] MEDS: SPIRONOLACTONE 25 MG TAB PO SCH (08:26)
[2017-03-06] MEDS: FUROSEMIDE 40 MG TAB PO SCH (08:27)
--- NOTE | 2017-03-06 08:27 | Anesthesiology Progress Note ---
Anesthesia Post Op Note Date & Time Mar 06, 2017 at 08:27 Vital Signs Pain Intensity: 0.0 Vital Signs Past 12 Hours Date Time Temp Pulse Resp B/P (MAP) Pulse Ox O2 Delivery O2 Flow Rate FiO2 03/06/17 07:04 92 20 93 Mask 4.0 03/06/17 04:37 36.4 75 26 100/50 (67) 95 Nasal Cannula 4.0 03/06/17 04:15 94 Oxymask 4.0 03/06/17 01:39 89 20 94 Mask 4.0 03/06/17 00:20 100 Oxymask 5.0 03/06/17 00:16 36.8 61 29 91/44 (60) 97 Oxymask 5.0 Notes Mental Status: alert / awake / arousable, participated in evaluation Pt Amnestic to Procedure: Yes Nausea / Vomiting: adequately controlled Pain: adequately controlled Airway Patency, RR, SpO2: stable & adequate BP & HR: stable & adequate Hydration State: stable & adequate Anesthetic Complications: no major complications apparent
[2017-03-06] MEDS: POTASSIUM CHLORIDE 20 MEQ TABCR PO SCH (08:29)
[2017-03-06] MEDS: METOPROLOL TARTRATE 25 MG TAB PO SCH ×3 (08:32→20:44)
[2017-03-06] MEDS: APIXABAN 2.5 MG TAB PO SCH ×2 (08:32→20:45)
--- NOTE | 2017-03-06 09:35 | Cardiology Follow-Up ---
Subjective General Date of Service: Mar 06, 2017. Chief Complaint: Cardiac arrest Pt evaluation today including: conversation w/ patient, physical exam, chart review, lab review, review of studies, review of inpatient medication list History of Present Illness Patient seen and examined. Chart, medications, and telemetry reviewed. + Left shoulder discomfort. Right rib discomfort. Peripheral edema CXR and device interrogation OK. Telemetry: Paced at 72. Short VPC runs. Lopressor held this AM secondary to hypotension. Allergies Coded Allergies: Lisinopril (Verified Adverse Reaction, Intermediate, HIGH POTASSIUM LEVELS , 03/01/17) Atorvastatin (Verified Adverse Reaction, Mild, muscle weakness in legs, ) Social History Smoking Status: Former Smoker Hx Tobacco Use In Past Year?: Yes Hx Alcohol Use - Type And Amou: Yes (Social) Hx Substance Use - Type And Am: No Problem List Medical Problems: (1) Elevated troponin Status: Acute (2) Pneumothorax on right Status: Acute (3) Pulmonary edema Status: Acute (4) Rib fractures Status: Acute (5) Ventricular tachycardia Status: Acute Physical Exam Vital Signs Last Vital Signs Documentation Date Time Temp Pulse Resp B/P (MAP) Pulse Ox O2 Delivery O2 Flow Rate FiO2 03/06/17 08:34 36.4 73 28 98/49 (65) 96 Oxymask 4.0 02/26/17 12:00 40 Physical Exam Constitutional: Level of Distress: acutely ill, chronically ill Psychiatric: Mental Status: active & alert Orientation: to time, to place, to person Memory: recent memory normal, remote memory normal Head: normocephalic, atraumatic Eyes: Pupils: PERRLA Neck: pertinent finding (Elevated JVP) Lungs: Auscultation: no wheezing, no rales/crackles, deminished air movement, decreased breath sounds, rhonchi Cardiovascular: Heart Auscultation: RRR, no rubs, II/ SHANNON, gallop Peripheral Pulses: Dorsalis Pedis Pulse: absent on the left, absent on the right Abdomen: Bowel Sounds: normal Inspection & Palpation: soft Extremities: no cyanosis, no clubbing, edema (1-2+) Neurologic: Cranial Nerves: grossly intact Assessment and Plan Assessment and Plan Out of hospital cardiac arrest status post appropriate defibrillation via a life vest Complex resuscitation in house complicated by arrhythmias, congestive heart failure, several bilateral rib fractures, pneumothorax, electrolyte disturbances , prolonged intubation. Known severe ischemic cardiomyopathy with systolic heart failure, EF 25-30%, NYHA Functional Class III with a left bundle branch block, QRS duration greater than 150 ms. Status post March 05, 2017 device implantation. RECOMMENDATIONS: Change Lopressor to Toprol XL Increase spironolactone to 25 mg/day. Hold off on resuming Losartan at this time (hypotension) Increase activity as tolerated. Device restrictions reviewed. CARDIOLOGY ATTENDING ADDENDUM: The patient was seen and personally examined. Agree with Ariel Bangura PA-C's findings and plans as documented above. I feel patient will need additional PT for deconditioning, at home or in a supervised facility. Laboratory Results Last 24 Hours Test 03/05/17 11:54 03/05/17 16:17 03/05/17 20:37 03/06/17 05:18 Bedside Glucose 158 mg/dl 126 mg/dl 149 mg/dl White Blood Count 7.36 K/uL Red Blood Count 3.46 M/uL Hemoglobin 11.1 g/dL Hematocrit 34.4 % Mean Corpuscular Volume 99.4 fL Mean Corpuscular Hemoglobin 32.1 pg Mean Corpuscular Hemoglobin Concent 32.3 g/dl Platelet Count 190 K/uL Mean Platelet Volume 10.9 fL Neutrophils (%) (Auto) 73.6 % Lymphocytes (%) (Auto) 16.4 % Monocytes (%) (Auto) 7.7 % Eosinophils (%) (Auto) 1.9 % Basophils (%) (Auto) 0.1 % Neutrophils # (Auto) 5.41 K/uL Lymphocytes # (Auto) 1.21 K/uL Monocytes # (Auto) 0.57 K/uL Eosinophils # (Auto) 0.14 K/uL Basophils # (Auto) 0.01 K/uL RDW Standard Deviation 58.7 fL RDW Coefficient of Variation 16.8 % Immature Granulocyte % (Auto) 0.3 % Immature Granulocyte # (Auto) 0.02 K/uL Sodium Level 139 mmol/L Potassium Level 3.8 mmol/L Chloride Level 102 mmol/L Carbon Dioxide Level 32 mmol/L Anion Gap 5.0 mmol/L Blood Urea Nitrogen 27 mg/dl Creatinine 1.00 mg/dl Est Creatinine Clear Calc Drug Dose 71.1 ml/min Estimated GFR () 85.6 Estimated GFR (Non- 73.8 BUN/Creatinine Ratio 26.7 Random Glucose 108 mg/dl Calcium Level 8.1 mg/dl Magnesium Level 2.2 mg/dl Total Bilirubin 0.7 mg/dl Aspartate Amino Transf (AST/SGOT) 15 U/L Alanine Aminotransferase (ALT/SGPT) 19 U/L Alkaline Phosphatase 125 U/L Pro-B-Type Natriuretic Peptide 8654 pg/ml Total Protein 5.4 gm/dl Albumin 2.3 gm/dl Globulin 3.1 gm/dl Albumin/Globulin Ratio 0.8
--- NOTE | 2017-03-06 10:59 | Progress Note ---
Internal Med Progress Note Date of Service: Mar 06, 2017. Provider Documentation: SUBJECTIVE: s/p pacemaker placement on 03/05/17. Patient received IV Lasix yesterday night. Patient seen and examined at bedside. He uses hand gestures to indicate breathing is about the same as yesterday. Known to have hoarseness of his voice. Able to sit up and cooperative with physical exam OBJECTIVE: Exam: General-no apparent distress Eyes- EOMI Neck-trachea midline, no JVD Lungs-no respiratory distress, no accessory muscle use, on breathing mask, lung sounds good air entry, no expiratory wheezes Heart- regular rate Abdomen- soft, nondistended, + bowel sounds Shoulder: dressing over left shoulder Extremities- bilateral lower extremity edema still present ASSESSMENT & PLAN: HX of CAD with ischemic cardiomyopathy,CHF with combined systolic and diastolic HF ; EF < 30 % presented with Vtach cardiac arrest pt was placed on Zoll Life vest - became unresponsive at home, followed by shock therapy by life vest pt was shocked once by the life vest at home , and twice in ED developed Vtach Cardiac arrest -leading to CPR Hospital Course to Date 02/18/2017: admitted to ICU intubated/ started on Pressors , was placed on hypothermic protocol s/p right IJ central venous, right radial arterial line was inserted for continuous monitoring of blood pressures while on multiple vasopressors, developed pneumothorax and s/p right chest tube placement, while in ICU , cardiac rhythm changed to Afib on amiodarone gtt /IV heparin started due arrhythmia AICD placement 02/19/17 taken off Hypothermic protocol MRI of brain 02/21/17 Findings concerning for a punctate focus of ischemia at the junction of the right inferior jeannie and medulla. This may represent a small lacunar infarct versus a punctate embolic infarct. No evidence of anoxic brain injury. 02/25 chest tube discontinued 02/26 extubated 02/27 amiodarone drip stopped; PO amiodarone started IV heparin stopped; Eliquis started, transfer from ICU to telemetry 03/05 BiV pacemaker placed, restart Eliquis Summary s/p VTACH CARDIAC ARREST (ROBERTO ON CKD STAGE 3 / Lactic Acidosis / Elevated Troponins have resolved), Respiratory Failure with intubation and then extubation, Several rib fractures due to cardiopulmonary resuscitation with a pneumothorax with chest tube placed and has been removed, Ischemic cardiomyopathy with systolic heart failure, Atrial Fibrillation, Biventricular pacemaker placed For the above cardiac-respiratory issues continue with amiodarone, Eliquis, metoprolol, Biventricular pacemaker for heart rate and rhythm control For CHF management: patient received IV Lasix on 03/05/17 with repeat 03/06/17 CXR showing improved aeration of the lung bases bilaterally and cardiac pacemaker/defibrillator leads in good position continues to have bilateral lower extremity edema Currently on PO Lasix starting 03/06/17 Cardiology note 03/06/17 "Change Lopressor to Toprol XL, Increase spironolactone to 25 mg/day. Hold off on resuming Losartan at this time ( hypotension)" when patient is discharged he will need oxygen, nebulizer machine, nebulizer medications, inhalers for COPD Other remaining health issues: Hoarseness of throat and dysphagia s/p extubation - followed by speech and swallow services, may need outpatient evaluation TYPE 2 DM HbA1c 6.9 does not seem insulin dependent based on HbA1c, likely can start oral metformin GERD/Hiatal Hernia continue Protonix DVT PROPHYLAXIS restart Eliquis Disposition: Patient remains in the hospital s/p pacemaker placemaker on 03/05/17 as he is getting diuresis for CHF and his cardiovascular medications are being adjusted. Continue Telemetry Patient has family members who would like to take him to their home and have him obtain outpatient physical rehabilitation Follow up appointments 03/11/2017 1:00 PM Darshan White DO Family Practice [facility] 04/02/2017 3:00 PM Dylon Briggs DO Cardiology, [facility] Vital Signs: Date Time Temp Pulse Resp B/P (MAP) Pulse Ox O2 Delivery O2 Flow Rate FiO2 03/06/17 08:34 36.4 73 28 98/49 (65) 96 Oxymask 4.0 03/06/17 08:00 Nasal Cannula 4.0 Humidified Oxygen 03/06/17 07:04 92 20 93 Mask 4.0 03/06/17 04:37 36.4 75 26 100/50 (67) 95 Nasal Cannula 4.0 03/06/17 04:15 94 Oxymask 4.0 03/06/17 01:39 89 20 94 Mask 4.0 03/06/17 00:20 100 Oxymask 5.0 03/06/17 00:16 36.8 61 29 91/44 (60) 97 Oxymask 5.0 03/05/17 19:58 92/44 (60) 03/05/17 19:55 95 Oxymask 5.0 03/05/17 19:36 36.6 64 22 94/48 (63) 97 Oxymask 5.0 03/05/17 16:00 Nasal Cannula 4.0 Humidified Oxygen 03/05/17 15:49 76 16 99 Mask 4.0 03/05/17 15:15 36.4 70 22 94/53 (67) 97 Oxymask 5.0 03/05/17 13:00 83 23 93 03/05/17 12:45 83 25 123/63 (68) 96 03/05/17 12:30 79 20 99 03/05/17 12:15 81 27 111/60 (68) 92 03/05/17 12:05 83 25 114/65 (87) 97 03/05/17 12:00 Nasal Cannula 4.0 Humidified Oxygen 03/05/17 11:40 90 16 117/69 (85) 95 Nasal Cannula 4 03/05/17 11:35 92 16 120/71 (87) 95 Nasal Cannula 4 03/05/17 11:30 90 16 117/68 (84) 92 Nasal Cannula 4 03/05/17 11:25 90 16 118/68 (85) 92 Nasal Cannula 4 03/05/17 11:20 91 16 132/82 (99) 92 Nasal Cannula 4 03/05/17 11:15 91 16 133/75 (94) 92 Nasal Cannula 4 03/05/17 11:10 90 16 130/75 (93) 92 Nasal Cannula 4 Lab Results: Results Past 24 Hours Test 03/05/17 11:54 03/05/17 16:17 03/05/17 20:37 03/06/17 05:18 Range/Units Bedside Glucose 158 126 149 70-99 mg/dl White Blood Count 7.36 4.8-10.8 K/uL Red Blood Count 3.46 4.7-6.1 M/uL Hemoglobin 11.1 14.0-18.0 g/dL Hematocrit 34.4 42-52 % Mean Corpuscular Volume 99.4 80-100 fL Mean Corpuscular Hemoglobin 32.1 25-34 pg Mean Corpuscular Hemoglobin Concent 32.3 32-36 g/dl Platelet Count 190 130-400 K/uL Mean Platelet Volume 10.9 7.4-10.4 fL Neutrophils (%) (Auto) 73.6 % Lymphocytes (%) (Auto) 16.4 % Monocytes (%) (Auto) 7.7 % Eosinophils (%) (Auto) 1.9 % Basophils (%) (Auto) 0.1 % Neutrophils # (Auto) 5.41 1.4-6.5 K/uL Lymphocytes # (Auto) 1.21 1.2-3.4 K/uL Monocytes # (Auto) 0.57 0.11-0.59 K/uL Eosinophils # (Auto) 0.14 0-0.5 K/uL Basophils # (Auto) 0.01 0-0.2 K/uL RDW Standard Deviation 58.7 36.4-46.3 fL RDW Coefficient of Variation 16.8 11.5-14.5 % Immature Granulocyte % (Auto) 0.3 % Immature Granulocyte # (Auto) 0.02 0.00-0.02 K/uL Sodium Level 139 136-145 mmol/L Potassium Level 3.8 3.5-5.1 mmol/L Chloride Level 102 98-107 mmol/L Carbon Dioxide Level 32 21-32 mmol/L Anion Gap 5.0 3-11 mmol/L Blood Urea Nitrogen 27 7-18 mg/dl Creatinine 1.00 0.60-1.40 mg/dl Est Creatinine Clear Calc Drug Dose 71.1 ml/min Estimated GFR () 85.6 Estimated GFR (Non- 73.8 BUN/Creatinine Ratio 26.7 10-20 Random Glucose 108 70-99 mg/dl Calcium Level 8.1 8.5-10.1 mg/dl Magnesium Level 2.2 1.8-2.4 mg/dl Total Bilirubin 0.7 0.2-1 mg/dl Aspartate Amino Transf (AST/SGOT) 15 15-37 U/L Alanine Aminotransferase (ALT/SGPT) 19 12-78 U/L Alkaline Phosphatase 125 45-117 U/L Pro-B-Type Natriuretic Peptide 8654 0-900 pg/ml Total Protein 5.4 6.4-8.2 gm/dl Albumin 2.3 3.4-5.0 gm/dl Globulin 3.1 2.5-4.0 gm/dl Albumin/Globulin Ratio 0.8 0.9-2
--- NOTE | 2017-03-06 11:24 | Pharmacy Progress Note ---
Glycemic Control Progress Note Date of Service Mar 06, 2017. Scope Glycemic Pharmacist consulted for glycemic control to write orders per [facility] inpatient glycemic control protocol. Objective Accuchecks BSG (last 24hrs): Test 03/05/17 11:54 03/05/17 16:17 03/05/17 20:37 03/06/17 05:18 Bedside Glucose 158 mg/dl (70-99) 126 mg/dl (70-99) 149 mg/dl (70-99) Random Glucose 108 mg/dl (70-99) HbA1c: Test 02/18/17 04:07 Hemoglobin A1c 6.9 % (4.5-5.6) H Recent Pertinent Medications The patient is currently receiving: * Basal insulin: Lantus-- units SQ Q --- * Correctional Insulin: Novolog Correction per scale ACHS Goal Range: Low 120 mg/dL - High 160 mg/dL Correction Factor: 25 mg/dL/unit * Prandial insulin: Per carb ratio of 1 unit per 10 grams CHO consumed * Oral Agents: Metformin 500mg daily w/ dinner started 03/05 by hospitalist Outpatient Anti-Diabetic Meds no prior meds for DM Assessment & Plan ASSESSMENT: 03/01/17 * BSGs at goal over the last 24 hours; BSGs have ranged 110-151 and he has only received 14 units of SQ * Fasting BSG 116 this AM w/ 5 units of Lantus on board; he has done well with no basal insulin prior days with no PO intake. Will continue low dose Lantus for now. * CR has performed well when utilized 03/02/17 * BSGs have ranged 101-134 over the last 24 hrs utilizing the current insulin orders * No new stressors identified * Plan to continue w/ current orders 03/03/17 - 03/04/17 * BSGs at goal - no changes made 03/05/17 * Fasting BSG 108 with 5 units basal on board * Post-prandial BSGs well controlled with CR 10 * No changes required 03/06/17 * BSGs again at goal this AM * Hospitalist d/c'd Lantus last evening and started metformin. This is a reasonable choice of therapy for patient upon discharge. Renal fxn adequate and no contraindications to metformin at this time. * Fasting BSG 108 this AM with no Lantus on board. * Plan to continue current CF and CR for now as it takes 3+ days for metformin to being to have significant effects and up to several weeks to be fully effective. PLAN FOR INPATIENT GLYCEMIC CONTROL: * Continuing metformin * No basal insulin at this time * Continuing correction factor of 25 mg/dl/unit * Continuing carb ratio of 1 unit per 10 grams CHO consumed * Continuing goal range of Low 120 mg/dL - High 160 mg/dL * Please note that the plan above was derived based on current level of insulin resistance and hospital stress. These recommendations are appropriate for inpatient admission only. Plan of care upon discharge will need to be reassessed to avoid potential outpatient hypo/hyperglycemia. Thank you.
[2017-03-06] MEDS: METFORMIN HCL 500 MG TAB PO SCH (17:26)
[2017-03-07] VITALS (8 sets, daily range): BP systolic 101–105; BP diastolic 42–56; PULSE 64–74; TEMP 36.5–37.2; O2SAT 89–94
[2017-03-07] MEDS: LEVALBUTEROL 0.63MG/3 ML NEB INH SCH ×4 (01:50→19:01)
[2017-03-07] MEDS: IPRATROPIUM BROMIDE NEB SOLN 0.02% 2.5 ML VIAL INH SCH ×4 (01:50→19:02)
[2017-03-07] MEDS: INSULIN ASPART 100 UNITS/ML 3 ML PEN SC SCH ×4 (08:18→20:44)
[2017-03-07] MEDS: SPIRONOLACTONE 25 MG TAB PO SCH (08:19)
[2017-03-07] MEDS: AMIODARONE 200 MG TAB PO SCH ×2 (08:19→21:05)
[2017-03-07] MEDS: PANTOprazole SOD 40 MG TAB PO SCH (08:20)
[2017-03-07] MEDS: APIXABAN 2.5 MG TAB PO SCH ×2 (08:21→21:05)
[2017-03-07] MEDS: MAGNESIUM CHLORIDE 64MG DELAYED REL TAB PO SCH ×2 (08:21→21:05)
[2017-03-07] MEDS: FUROSEMIDE 40 MG TAB PO SCH (08:22)
[2017-03-07] MEDS: POTASSIUM CHLORIDE 20 MEQ TABCR PO SCH (08:23)
[2017-03-07] MEDS: POLYETHYLENE (MIRALAX) 17 GM PACK PO SCH (08:24)
[2017-03-07] MEDS: METOPROLOL SUCC 25MG EXT REL TAB PO SCH (08:24)
--- NOTE | 2017-03-07 09:44 | Cardiology Follow-Up ---
Subjective General Date of Service: Mar 07, 2017. Chief Complaint: Cardiac arrest Pt evaluation today including: conversation w/ patient, physical exam, chart review, lab review, review of studies, review of inpatient medication list History of Present Illness Patient seen and examined. Chart, medications, and telemetry reviewed. Feeling better today. Improved left shoulder discomfort. Stable right rib discomfort. + Scrotal and bilateral lower extremity peripheral edema Telemetry: Paced at 72. PVC's primarily in singles. Allergies Coded Allergies: Lisinopril (Verified Adverse Reaction, Intermediate, HIGH POTASSIUM LEVELS , 03/01/17) Atorvastatin (Verified Adverse Reaction, Mild, muscle weakness in legs, ) Social History Smoking Status: Former Smoker Hx Tobacco Use In Past Year?: Yes Hx Alcohol Use - Type And Amou: Yes (Social) Hx Substance Use - Type And Am: No Problem List Medical Problems: (1) Elevated troponin Status: Acute (2) Pneumothorax on right Status: Acute (3) Pulmonary edema Status: Acute (4) Rib fractures Status: Acute (5) Ventricular tachycardia Status: Acute Physical Exam Vital Signs Last Vital Signs Documentation Date Time Temp Pulse Resp B/P (MAP) Pulse Ox O2 Delivery O2 Flow Rate FiO2 03/07/17 07:01 71 22 93 Mask 4.0 03/07/17 04:48 37.2 101/42 (61) 02/26/17 12:00 40 Physical Exam Constitutional: Level of Distress: acutely ill, chronically ill Psychiatric: Mental Status: active & alert Orientation: to time, to place, to person Memory: recent memory normal, remote memory normal Head: normocephalic, atraumatic Eyes: Pupils: PERRLA Neck: pertinent finding (Elevated JVP) Lungs: Auscultation: no wheezing, no rales/crackles, deminished air movement, decreased breath sounds, rhonchi Cardiovascular: Heart Auscultation: RRR, no rubs, II/ SHANNON, gallop Peripheral Pulses: Dorsalis Pedis Pulse: absent on the left, absent on the right Abdomen: Bowel Sounds: normal Inspection & Palpation: soft Extremities: no cyanosis, no clubbing, edema (2+) Neurologic: Cranial Nerves: grossly intact Assessment and Plan Assessment and Plan Out of hospital cardiac arrest status post appropriate defibrillation via a life vest Complex resuscitation in house complicated by arrhythmias, congestive heart failure, several bilateral rib fractures, pneumothorax, electrolyte disturbances , prolonged intubation. Known severe ischemic cardiomyopathy with systolic heart failure, EF 25-30%, NYHA Functional Class III with a left bundle branch block, QRS duration greater than 150 ms. Status post March 05, 2017 biventricular pacemaker defibrillator implantation with the LV pacing lead in the His bundle position RECOMMENDATIONS: Limited TTE today, RE: coronary sinus dissection/microperforation. Additional furosemide today. Hold off on resuming Losartan due to hypotension Increase activity as tolerated. CARDIOLOGY ATTENDING ADDENDUM: The patient was seen and personally examined. Agree with Ariel Bangura PA-C's findings and plans as documented above. Pt. is actually doing well. Needs more physical therapy. I will check the echo when it is complete. Laboratory Results Last 24 Hours Test 03/06/17 11:10 03/06/17 16:22 03/06/17 20:16 03/07/17 06:52 Bedside Glucose 158 mg/dl 102 mg/dl 145 mg/dl 120 mg/dl
[2017-03-07 10:08] LABS: CALCIUM 8.6 mg/dl (8.5-10.1); CREATININE 1.03 mg/dl (0.60-1.40); POTASSIUM 4.1 mmol/L (3.5-5.1)
--- NOTE | 2017-03-07 11:15 | Pharmacy Progress Note ---
Pharmacy Glycemic Sign Off Nt Date of Service Mar 07, 2017. Assessment & Plan ASSESSMENT: * Pharmacy was consulted by Dr Porras on 02/22/17 for glycemic control and to write orders per [facility] inpatient glycemic control protocol. * Patient has been requiring 2-6 units of insulin per day along with metformin 500mg daily for adequate glycemic control * BSGs ranging 120 - 158 mg/dl * Regimen has only required minor adjustments over the past 48hrs to achieve this level of control * Do not anticipate further changes in patient status that would quickly deteriorate glycemic control (i.e. patient to be NPO for upcoming procedure, steroids tapering, starting tube feedings, etc). PLAN FOR INPATIENT GLYCEMIC CONTROL: No changes needed to current regimen. * Continue metformin 500mg PO daily * Continue NovoLog per scale ACHS/Q6hrs while NPO * Goal range = 120 - 160 mg/dl * CF = 25 mg/dl/unit * CR = 1 unit for ever 10 g CHO consumed * Pharmacy is signing off of glycemic consult and will no longer be making adjustments to inpatient regimen. Please feel free to re-consult if needed. Thank you.
--- NOTE | 2017-03-07 15:46 | ECHOCARDIOGRAM REPORT ---
*NOTICE TO RECEIVING REPUBLICAN AGENCY This information is strictly Confidential and protected under [place] law. [place] law prohibits you from making any further disclosure of this information unless further disclosure is expressly permitted by the written consent of the person to whom it pertains or is authorized by law. A general authorization for the release of medical or other information is not sufficient for this purpose. Hospital accepts no responsibility if the information is made available to any other person, INCLUDING THE PATIENT. Interpretation Summary * Name: LUIS MIGUEL ANDRE Study Date: 03/07/2017 12:18 PM BP: 105/56 mmHg * Patient Location: .2E\S\E204\S\1 HR: 84 * : 1940 (M/d/yyyy) Gender: Male Height: 72 in * Age: 76 yrs Ethnicity: [place] Weight: 188 lb * Ordering Physician: Ariel Bangura * Referring Physician: Self, Referred * Performed By: Lelo Ferris RCS * * Reason For Study: CORONARY SINUS DISSECTION AND MICROPERFORATION * BSA: 2.1 m2 * -- Conclusions -- * A focused study was performed per provider request to exclude post procedure pericardial effusion and reassess LV ejection fraction. * There is no pericardial effusion. * The left ventricular Ejection Fraction = 25-30%. Procedure Details * Limited views were obtained. Left Ventricle * Moderate concentric left ventricular hypertrophy is present in segments with relatively normal wall motion There is thinninig and scar of the inferior base, posterior and inferolateral ye. The left ventricular Ejection Fraction = 25-30%. Septal motion is consistent with conduction abnormality. There is moderate apical wall hypokinesis. There is posterior wall akinesis. There is inferior wall akinesis. Right Ventricle * The right ventricle is normal in size and function. Atria * Right atrial size is normal. * An intracardiac device lead is noted in the right atrium. Pericardium/Pleural * There is no pericardial effusion. Right Ventricle * An intracardiac device lead is noted in the right ventricle. Great Vessels * Normal inferior vena cava size and collapsability with sniff indicates a normal right atrial pressure of 3 mmHg MMode 2D Measurements and Calculations IVSd 1.6 cm IVSs 1.6 cm LVIDd 6.2 cm LVIDs 5.4 cm LVPWd 1.0 cm LVPWs 1.4 cm IVS/LVPW 1.6 FS 13.0 % EDV(Teich) 191.8 ml ESV(Teich) 139.5 ml EF(Teich) 27.3 % EDV(cubed) 234.8 ml ESV(cubed) 154.8 ml EF(cubed) 34.1 % % IVS thick -3.74 % % LVPW thick 34.1 % LV mass(C)d 382.1 grams LV mass(C)dI 184.1 grams/m\S\2 LV mass(C)s 354.7 grams LV mass(C)sI 170.9 grams/m\S\2 SV(Teich) 52.3 ml SI(Teich) 25.2 ml/m\S\2 SV(cubed) 80.0 ml SI(cubed) 38.6 ml/m\S\2 Ao root diam 3.2 cm Ao root area 8.3 cm\S\2 LA dimension 4.6 cm LA/Ao 1.4 LVOT diam 2.0 cm LVOT area 3.3 cm\S\2 LVAd ap4 61.8 cm\S\2 LVLd ap4 10.8 cm EDV(MOD-sp4) 279.5 ml EDV(sp4-el) 301.2 ml LVAs ap4 46.6 cm\S\2 LVLs ap4 9.5 cm ESV(MOD-sp4) 182.2 ml ESV(sp4-el) 193.1 ml EF(MOD-sp4) 34.8 % EF(sp4-el) 35.9 % SV(MOD-sp4) 97.3 ml SI(MOD-sp4) 46.9 ml/m\S\2 SV(sp4-el) 108.1 ml SI(sp4-el) 52.1 ml/m\S\2
[2017-03-07] MEDS ORDERED: FUROSEMIDE 40 MG TAB PO ONE (16:00)
--- NOTE | 2017-03-07 16:29 | Progress Note ---
Internal Med Progress Note Date of Service: Mar 07, 2017. Provider Documentation: SUBJECTIVE: . Known to have hoarseness of his voice. Able to sit up and cooperative with physical exam. Patient able to express no worsening shortness of breath. 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 ; EF < 30 % presented with Vtach cardiac arrest pt was placed on Zoll Life vest - became unresponsive at home, followed by shock therapy by life vest pt was shocked once by the life vest at home , and twice in ED developed Vtach Cardiac arrest -leading to CPR Hospital Course to Date 02/18/2017: admitted to ICU intubated/ started on Pressors, was placed on hypothermic protocol s/p right IJ central venous, right radial arterial line was inserted for continuous monitoring of blood pressures while on multiple vasopressors, developed pneumothorax and s/p right chest tube placement, while in ICU , cardiac rhythm changed to Afib on amiodarone gtt/IV heparin started due arrhythmia AICD placement 02/19/17 taken off Hypothermic protocol MRI of brain 02/21/17 Findings concerning for a punctate focus of ischemia at the junction of the right inferior jeannie and medulla. This may represent a small lacunar infarct versus a punctate embolic infarct. No evidence of anoxic brain injury. 02/25 chest tube discontinued 02/26 extubated 02/27 amiodarone drip stopped; PO amiodarone started IV heparin stopped; Eliquis started, transfer from ICU to telemetry 03/05 BiV pacemaker placed, restart Eliquis Summary s/p VTACH CARDIAC ARREST (ROBERTO ON CKD STAGE 3 / Lactic Acidosis / Elevated Troponins have resolved), Respiratory Failure with intubation and then extubation, Several rib fractures due to cardiopulmonary resuscitation with a pneumothorax with chest tube placed and has been removed, Ischemic cardiomyopathy with systolic heart failure, Atrial Fibrillation, Biventricular pacemaker placed For the above cardiac-respiratory issues continue with amiodarone, Eliquis, metoprolol, Biventricular pacemaker for heart rate and rhythm control For CHF management: patient received IV Lasix on 03/05/17 with repeat 03/06/17 CXR showing improved aeration of the lung bases bilaterally and cardiac pacemaker/defibrillator leads in good position continues to have bilateral lower extremity edema Currently on PO Lasix starting 03/06/17 Cardiology note 03/06/17 "Change Lopressor to Toprol XL, Increase spironolactone to 25 mg/day. Hold off on resuming Losartan at this time ( hypotension)" Cardiology note 03/07/17: "Limited TTE today, RE: coronary sinus dissection/ microperforation. Additional furosemide today. Hold off on resuming Losartan due to hypotension Increase activity as tolerated." Echocardiogram 03/07/17 "A focussed study was performed per provider request to exclude post procedure pericardial effusion and reassess LV ejection fraction. There is no pericardial effusion. The left ventricular Ejection Fraction = 25-30 %." Other remaining health issues: Hoarseness of throat and dysphagia s/p extubation - followed by speech and swallow services, ENT outpatient appointment made TYPE 2 DM HbA1c 6.9 does not seem insulin dependent based on HbA1c, continue oral metformin GERD/Hiatal Hernia continue Protonix DVT PROPHYLAXIS continue Eliquis Disposition: Patient remains in the hospital s/p pacemaker on 03/05/17 as he is still getting diuresis for CHF cardiovascular medications are being adjusted. Continue Telemetry. Possible hospital discharge on 03/08/17 depending on cardiology recommendations Patient has family members who would like to take him to their home and have him obtain outpatient physical rehabilitation when patient is discharged he will need oxygen, nebulizer machine, nebulizer medications, inhalers for COPD Prescriptions have been made for: 1) Oxygen 2.5L Nasal Cannula for ambulation, Oxygen concentrator and portable Oxygen concentrator 2) Test for Titration of SpO2 to 89% or greater on portable concentrator and/or conserving device 3) Hospital bed with HOB elevation above 45 degrees Follow up appointments 03/11/2017 1:[address] Darshan White, DO Family Practice [facility] 03/28/2017 Dr. Tanner, ENT, [facility] 04/02/2017 3:[address] Dylon Briggs, DO Cardiology, [facility] Vital Signs: Date Time Temp Pulse Resp B/P (MAP) Pulse Ox O2 Delivery O2 Flow Rate FiO2 03/07/17 15:36 36.7 68 18 102/50 (67) 92 03/07/17 14:33 65 20 93 Room Air 03/07/17 12:00 Nasal Cannula 4.0 Humidified Oxygen 03/07/17 11:13 36.6 71 20 105/56 (72) 89 Room Air 03/07/17 08:00 Nasal Cannula 4.0 Humidified Oxygen 03/07/17 07:01 71 22 93 Mask 4.0 03/07/17 04:48 37.2 74 29 101/42 (61) 93 Nasal Cannula 4.0 03/07/17 04:00 Oxymask 5.0 03/07/17 02:23 64 21 94 Mask 4.0 03/07/17 00:00 Oxymask 5.0 03/06/17 23:56 36.5 66 17 107/53 (71) 98 03/06/17 20:21 Oxymask 5.0 03/06/17 19:44 36.3 73 22 103/53 (70) 98 Oxymask 4.0 03/06/17 19:10 84 20 97 Mask 4.0 Lab Results: Results Past 24 Hours Test 03/06/17 20:16 03/07/17 06:52 03/07/17 09:22 03/07/17 11:12 Range/Units Bedside Glucose 145 120 115 70-99 mg/dl Sodium Level 136 136-145 mmol/L Potassium Level 4.1 3.5-5.1 mmol/L Chloride Level 100 98-107 mmol/L Carbon Dioxide Level 32 21-32 mmol/L Anion Gap 4.0 3-11 mmol/L Blood Urea Nitrogen 22 7-18 mg/dl Creatinine 1.03 0.60-1.40 mg/dl Est Creatinine Clear Calc Drug Dose 69.1 ml/min Estimated GFR () 82.6 Estimated GFR (Non- 71.2 BUN/Creatinine Ratio 21.3 10-20 Random Glucose 155 70-99 mg/dl Calcium Level 8.6 8.5-10.1 mg/dl
[2017-03-07] MEDS: METFORMIN HCL 500 MG TAB PO SCH (17:14)
[2017-03-08] VITALS (13 sets, daily range): BP systolic 85–99; BP diastolic 40–58; PULSE 60–75; TEMP 36.3–36.8; O2SAT 93–100
[2017-03-08] MEDS: IPRATROPIUM BROMIDE NEB SOLN 0.02% 2.5 ML VIAL INH SCH ×4 (02:02→19:40)
[2017-03-08] MEDS: LEVALBUTEROL 0.63MG/3 ML NEB INH SCH ×4 (02:02→19:40)
[2017-03-08] MEDS: INSULIN ASPART 100 UNITS/ML 3 ML PEN SC SCH ×4 (08:01→21:00)
[2017-03-08] MEDS: APIXABAN 2.5 MG TAB PO SCH ×2 (08:02→21:24)
[2017-03-08] MEDS: MAGNESIUM CHLORIDE 64MG DELAYED REL TAB PO SCH ×2 (08:03→21:24)
[2017-03-08] MEDS: METOPROLOL SUCC 25MG EXT REL TAB PO SCH (08:06)
[2017-03-08] MEDS: AMIODARONE 200 MG TAB PO SCH ×2 (08:06→21:23)
[2017-03-08] MEDS: PANTOprazole SOD 40 MG TAB PO SCH (08:06)
[2017-03-08] MEDS: POLYETHYLENE (MIRALAX) 17 GM PACK PO SCH (08:07)
[2017-03-08] MEDS: POTASSIUM CHLORIDE 20 MEQ TABCR PO SCH (08:07)
[2017-03-08] MEDS: SPIRONOLACTONE 25 MG TAB PO SCH (08:07)
--- NOTE | 2017-03-08 12:57 | Progress Note ---
Internal Med Progress Note Date of Service: Mar 08, 2017. Provider Documentation: SUBJECTIVE: Patient's blood pressure low this morning 85/50 and then 86/58. Asymptomatic however Lasix was held to prevent more hypotension Known to have hoarseness of his voice. Able to sit up and cooperative with physical exam. Patient able to express no worsening shortness of breath. 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 ; EF < 30 % presented with Vtach cardiac arrest pt was placed on Zoll Life vest - became unresponsive at home, followed by shock therapy by life vest pt was shocked once by the life vest at home , and twice in ED developed Vtach Cardiac arrest -leading to CPR Hospital Course to Date 02/18/2017: admitted to ICU intubated/ started on Pressors, was placed on hypothermic protocol s/p right IJ central venous, right radial arterial line was inserted for continuous monitoring of blood pressures while on multiple vasopressors, developed pneumothorax and s/p right chest tube placement, while in ICU , cardiac rhythm changed to Afib on amiodarone gtt/IV heparin started due arrhythmia AICD placement 02/19/17 taken off Hypothermic protocol MRI of brain 02/21/17 Findings concerning for a punctate focus of ischemia at the junction of the right inferior jeannie and medulla. This may represent a small lacunar infarct versus a punctate embolic infarct. No evidence of anoxic brain injury. 02/25 chest tube discontinued 02/26 extubated 02/27 amiodarone drip stopped; PO amiodarone started IV heparin stopped; Eliquis started, transfer from ICU to telemetry 03/05 BiV pacemaker placed, restart Eliquis Summary s/p VTACH CARDIAC ARREST (ROBERTO ON CKD STAGE 3 / Lactic Acidosis / Elevated Troponins have resolved), Respiratory Failure with intubation and then extubation, Several rib fractures due to cardiopulmonary resuscitation with a pneumothorax with chest tube placed and has been removed, Ischemic cardiomyopathy with systolic heart failure, Atrial Fibrillation, Biventricular pacemaker placed For the above cardiac-respiratory issues continue with amiodarone, Eliquis, metoprolol, Biventricular pacemaker for heart rate and rhythm control For CHF management: patient received IV Lasix on 03/05/17 with repeat 03/06/17 CXR showing improved aeration of the lung bases bilaterally and cardiac pacemaker/defibrillator leads in good position continues to have bilateral lower extremity edema Cardiology note 03/06/17 "Change Lopressor to Toprol XL, Increase spironolactone to 25 mg/day. Hold off on resuming Losartan at this time ( hypotension)" Cardiology note 03/07/17: "Limited TTE today, RE: coronary sinus dissection/ microperforation. Additional furosemide today. Hold off on resuming Losartan due to hypotension Increase activity as tolerated." Echocardiogram 03/07/17 "A focussed study was performed per provider request to exclude post procedure pericardial effusion and reassess LV ejection fraction. There is no pericardial effusion. The left ventricular Ejection Fraction = 25-30 %." Diuresis with Lasix has been difficult because patient continues to have lower extremity edema and lung sounds of some lung congestion. However has had low blood pressure even when off of Lasix Other remaining health issues: Hoarseness of throat and dysphagia s/p extubation - followed by speech and swallow services, ENT outpatient appointment made TYPE 2 DM HbA1c 6.9 does not seem insulin dependent based on HbA1c, continue oral metformin GERD/Hiatal Hernia continue Protonix DVT PROPHYLAXIS continue Eliquis Disposition: Patient remains in the hospital s/p pacemaker as blood pressure is low while off diuresis and losartan. Will continue to monitor to see if blood pressure will slate picker higher. Patient has family members who would like to take him to their home and have him obtain outpatient physical rehabilitation when patient is discharged he will need oxygen, nebulizer machine, nebulizer medications, inhalers for COPD Prescriptions have been made for: 1) Oxygen 2.5L Nasal Cannula for ambulation, Oxygen concentrator and portable Oxygen concentrator 2) Test for Titration of SpO2 to 89% or greater on portable concentrator and/or conserving device 3) Hospital bed with HOB elevation above 45 degrees Follow up appointments 03/11/2017 1:[address] Darshan White, [facility] 03/28/2017 Dr. Tanner, ENT, [facility] 04/02/2017 3:[address] Dylon Briggs, DO Cardiology, [facility] Vital Signs: Date Time Temp Pulse Resp B/P (MAP) Pulse Ox O2 Delivery O2 Flow Rate FiO2 03/08/17 11:46 36.3 60 12 92/45 (61) 100 Nasal Cannula 03/08/17 08:00 Oxymask 2.0 03/08/17 07:33 36.3 63 20 96/45 (62) 93 Room Air 03/08/17 07:26 60 20 95 Mask 2.0 03/08/17 05:20 86/48 (61) 03/08/17 04:38 36.3 63 23 85/40 (55) 95 Diffusion Mask 2.0 03/08/17 04:00 Oxymask 2.0 03/08/17 02:02 75 20 97 Mask 0.5 03/08/17 00:08 36.8 71 15 94/58 (70) 96 03/08/17 00:00 Nasal Cannula 4.0 Humidified Oxygen 03/07/17 20:00 Room Air 03/07/17 19:28 36.5 71 18 105/51 (69) 93 03/07/17 19:02 71 20 92 Room Air 03/07/17 16:00 Room Air 03/07/17 15:36 36.7 68 18 102/50 (67) 92 03/07/17 14:33 65 20 93 Room Air Lab Results: Results Past 24 Hours Test 03/07/17 16:06 03/07/17 20:25 03/08/17 07:19 03/08/17 11:09 Range/Units Bedside Glucose 102 120 104 135 70-99 mg/dl
--- NOTE | 2017-03-08 13:59 | Cardiology Follow-Up ---
Subjective General Date of Service: Mar 08, 2017. Chief Complaint: Cardiac arrest Pt evaluation today including: conversation w/ patient, physical exam History of Present Illness The patient is a 76 year old male seen in follow up. Dr Cortez had expressed concerns of relative hypotension with SBP in the 80s this am. Oral furosemide was therefore discontinued earlier today. Pt with wet cough. 1-2+ bl LE edema noted. Telemetry, SR, AV pacing. Allergies Coded Allergies: Lisinopril (Verified Adverse Reaction, Intermediate, HIGH POTASSIUM LEVELS , 03/01/17) Atorvastatin (Verified Adverse Reaction, Mild, muscle weakness in legs, ) Social History Smoking Status: Former Smoker Hx Tobacco Use In Past Year?: Yes Hx Alcohol Use - Type And Amou: Yes (Social) Hx Substance Use - Type And Am: No Problem List Medical Problems: (1) Elevated troponin Status: Acute (2) Pneumothorax on right Status: Acute (3) Pulmonary edema Status: Acute (4) Rib fractures Status: Acute (5) Ventricular tachycardia Status: Acute Physical Exam Vital Signs Last Vital Signs Documentation Date Time Temp Pulse Resp B/P (MAP) Pulse Ox O2 Delivery O2 Flow Rate FiO2 03/08/17 11:46 36.3 60 12 92/45 (61) 100 Nasal Cannula 03/08/17 08:00 2.0 02/26/17 12:00 40 Physical Exam Constitutional: Level of Distress: acutely ill, chronically ill Psychiatric: Mental Status: active & alert Orientation: to time, to place, to person Memory: recent memory normal, remote memory normal Head: normocephalic, atraumatic Eyes: Pupils: PERRLA Neck: pertinent finding (Elevated JVP) Lungs: Auscultation: no wheezing, no rales/crackles, deminished air movement, decreased breath sounds, rhonchi Cardiovascular: Heart Auscultation: RRR, no rubs, II/ SHANNON, gallop Peripheral Pulses: Dorsalis Pedis Pulse: absent on the left, absent on the right Abdomen: Bowel Sounds: normal Inspection & Palpation: soft Extremities: no cyanosis, no clubbing, edema (2+) Neurologic: Cranial Nerves: grossly intact Assessment and Plan Assessment and Plan IMPRESSION: 76 year old male Out of hospital cardiac arrest status post appropriate defibrillation via a life vest Complex resuscitation in house complicated by arrhythmias, congestive heart failure, several bilateral rib fractures, pneumothorax, electrolyte disturbances , prolonged intubation. Known severe ischemic cardiomyopathy with systolic heart failure, EF 25-30%, NYHA Functional Class III with a left bundle branch block, QRS duration greater than 150 ms. Status post March 05, 2017 biventricular pacemaker defibrillator implantation with the LV pacing lead in the His bundle position Abnormal swallow evaluation, aspiration risk. RECOMMENDATIONS: echo performed 03/07 revealed no pericardial effusion, severe LV systolic dysfunction noted, unchanged compared to prior. Replace follow catheter. Furosemide 20 mg IV x 1 with caution. Check CMP and will follow up clinically tomorrow before additional diuretic. Not ready for discharge. Laboratory Results Last 24 Hours Test 03/07/17 16:06 03/07/17 20:25 03/08/17 07:19 03/08/17 11:09 Bedside Glucose 102 mg/dl 120 mg/dl 104 mg/dl 135 mg/dl
[2017-03-08] MEDS ORDERED: FUROSEMIDE INJ 20 MG in SYRINGE 0 ML IV SCH (14:30)
[2017-03-08] MEDS: METFORMIN HCL 500 MG TAB PO SCH (16:53)
[2017-03-09] VITALS (11 sets, daily range): BP systolic 89–93; BP diastolic 46–51; PULSE 60–69; TEMP 36.2–37.2; O2SAT 92–100
[2017-03-09] MEDS: LEVALBUTEROL 0.63MG/3 ML NEB INH SCH ×4 (02:20→20:32)
[2017-03-09] MEDS: IPRATROPIUM BROMIDE NEB SOLN 0.02% 2.5 ML VIAL INH SCH ×4 (02:20→20:32)
[2017-03-09 06:20] LABS: ALBUMIN 2.5 gm/dl (3.4-5.0); CALCIUM 8.3 mg/dl (8.5-10.1); CREATININE 0.9 mg/dl (0.60-1.40); POTASSIUM 3.8 mmol/L (3.5-5.1)
[2017-03-09 06:23] LABS: TOTAL PROTEIN 5.8 gm/dl (6.4-8.2)
[2017-03-09] MEDS: POLYETHYLENE (MIRALAX) 17 GM PACK PO SCH (08:02)
[2017-03-09] MEDS: SPIRONOLACTONE 25 MG TAB PO SCH (08:02)
[2017-03-09] MEDS: APIXABAN 2.5 MG TAB PO SCH ×2 (08:02→21:27)
[2017-03-09] MEDS: MAGNESIUM CHLORIDE 64MG DELAYED REL TAB PO SCH ×2 (08:02→21:27)
[2017-03-09] MEDS: AMIODARONE 200 MG TAB PO SCH ×2 (08:03→21:26)
[2017-03-09] MEDS: METOPROLOL SUCC 25MG EXT REL TAB PO SCH (08:03)
[2017-03-09] MEDS: PANTOprazole SOD 40 MG TAB PO SCH (08:03)
[2017-03-09] MEDS: POTASSIUM CHLORIDE 20 MEQ TABCR PO SCH (08:03)
[2017-03-09] MEDS: INSULIN ASPART 100 UNITS/ML 3 ML PEN SC SCH ×4 (08:11→21:00)
[2017-03-09] MEDS ORDERED: ALBUMIN 25% 50 ML with FUROSEMIDE INJ 40 MG IV ONE ×2 (10:30)
--- NOTE | 2017-03-09 12:23 | Cardiology Follow-Up ---
Subjective General Date of Service: Mar 09, 2017. Chief Complaint: follow-up acute on chronic systolic heart failure, cardiac arrest Pt evaluation today including: conversation w/ patient, physical exam History of Present Illness The patient is a 76 year old male seen in cardiology follow-up. Patient had a reasonable response to first night 20 mg yesterday after the Weiss catheter was placed under's of urine output documented yesterday. His energy is minimally better. His cough is improved. Telemetry reveals ongoing sinus rhythm with ventricular pacing. His blood pressure remains low 80-90 mmHg range. Weiss catheter is in place with pink tinged urine output. Allergies Coded Allergies: Lisinopril (Verified Adverse Reaction, Intermediate, HIGH POTASSIUM LEVELS , 03/01/17) Atorvastatin (Verified Adverse Reaction, Mild, muscle weakness in legs, ) Social History Smoking Status: Former Smoker Hx Tobacco Use In Past Year?: Yes Hx Alcohol Use - Type And Amou: Yes (Social) Hx Substance Use - Type And Am: No Problem List Medical Problems: (1) Elevated troponin Status: Acute (2) Pneumothorax on right Status: Acute (3) Pulmonary edema Status: Acute (4) Rib fractures Status: Acute (5) Ventricular tachycardia Status: Acute Physical Exam Vital Signs Last Vital Signs Documentation Date Time Temp Pulse Resp B/P (MAP) Pulse Ox O2 Delivery O2 Flow Rate FiO2 03/09/17 08:00 Oxymask 2.0 03/09/17 07:54 36.2 63 20 91/47 (62) 95 02/26/17 12:00 40 Physical Exam Constitutional: Level of Distress: acutely ill, chronically ill Psychiatric: Mental Status: active & alert Orientation: to time, to place, to person Memory: recent memory normal, remote memory normal Head: normocephalic, atraumatic Eyes: Pupils: PERRLA Neck: pertinent finding (Elevated JVP) Lungs: Auscultation: no wheezing, no rales/crackles, deminished air movement, decreased breath sounds, rhonchi Cardiovascular: Heart Auscultation: RRR, no rubs, II/ SHANNON, gallop Peripheral Pulses: Dorsalis Pedis Pulse: absent on the left, absent on the right Abdomen: Bowel Sounds: normal Inspection & Palpation: soft Extremities: no cyanosis, no clubbing, edema (2+) Neurologic: Cranial Nerves: grossly intact Assessment and Plan Assessment and Plan IMPRESSION: 76 year old male 1. Out of hospital cardiac ventricular tachycardia arrest status post appropriate defibrillation via a life vest 2. Complex resuscitation in house complicated by arrhythmias, congestive heart failure, several bilateral rib fractures, pneumothorax, electrolyte disturbances , prolonged intubation. 3. Known severe ischemic cardiomyopathy with systolic heart failure, EF 25-30% , NYHA Functional Class III with a left bundle branch block, QRS duration greater than 150 ms. 4. Newly diagnosed paroxysmal atrial fibrillation this admission, currently in sinus rhythm on amiodarone and Eliquis 5. Status post biventricular pacemaker defibrillator implantation with the LV pacing lead in the His bundle position ,03/05/17, Dr Blanc 6. Abnormal swallow evaluation, aspiration risk. 7. Debilitation, hypoalbuminemia RECOMMENDATIONS: Electrolytes are stable. Blood pressure although low, stable for him and he tolerated furosemide 03/08/17. Proceed with albumin plus furosemide 40 mg IV 1. Will follow clinically. Continue to increase activity. Will need outpatient rehabilitation. Continue to hold losartan due to relative hypotension. Continue amiodarone for suppression of ventricular tachycardia and atrial fibrillation. Laboratory Results Last 24 Hours Test 03/08/17 16:47 03/08/17 21:12 03/09/17 05:24 03/09/17 06:54 Bedside Glucose 156 mg/dl 145 mg/dl 109 mg/dl Sodium Level 135 mmol/L Potassium Level 3.8 mmol/L Chloride Level 99 mmol/L Carbon Dioxide Level 32 mmol/L Anion Gap 4.0 mmol/L Blood Urea Nitrogen 21 mg/dl Creatinine 0.90 mg/dl Est Creatinine Clear Calc Drug Dose 79.0 ml/min Estimated GFR () 97.2 Estimated GFR (Non- 83.8 BUN/Creatinine Ratio 23.0 Random Glucose 103 mg/dl Calcium Level 8.3 mg/dl Total Bilirubin 0.6 mg/dl Aspartate Amino Transf (AST/SGOT) 13 U/L Alanine Aminotransferase (ALT/SGPT) 18 U/L Alkaline Phosphatase 128 U/L Total Protein 5.8 gm/dl Albumin 2.5 gm/dl Globulin 3.3 gm/dl Albumin/Globulin Ratio 0.8 Test 03/09/17 11:19 Bedside Glucose 126 mg/dl
[2017-03-09] MEDS: METFORMIN HCL 500 MG TAB PO SCH (16:56)
--- NOTE | 2017-03-09 18:41 | Progress Note ---
Internal Med Progress Note Date of Service: Mar 09, 2017. Provider Documentation: SUBJECTIVE: Known to have hoarseness of his voice. Able to sit up and cooperative with physical exam. 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 ; EF < 30 % presented with Vtach cardiac arrest pt was placed on Zoll Life vest - became unresponsive at home, followed by shock therapy by life vest pt was shocked once by the life vest at home , and twice in ED developed Vtach Cardiac arrest -leading to CPR Hospital Course to Date 02/18/2017: admitted to ICU intubated/ started on Pressors, was placed on hypothermic protocol s/p right IJ central venous, right radial arterial line was inserted for continuous monitoring of blood pressures while on multiple vasopressors, developed pneumothorax and s/p right chest tube placement, while in ICU , cardiac rhythm changed to Afib on amiodarone gtt/IV heparin started due arrhythmia AICD placement 02/19/17 taken off Hypothermic protocol MRI of brain 02/21/17 Findings concerning for a punctate focus of ischemia at the junction of the right inferior jeannie and medulla. This may represent a small lacunar infarct versus a punctate embolic infarct. No evidence of anoxic brain injury. 02/25 chest tube discontinued 02/26 extubated 02/27 amiodarone drip stopped; PO amiodarone started IV heparin stopped; Eliquis started, transfer from ICU to telemetry 03/05 BiV pacemaker placed, restart Eliquis Summary s/p VTACH CARDIAC ARREST (ROBERTO ON CKD STAGE 3 / Lactic Acidosis / Elevated Troponins have resolved), Respiratory Failure with intubation and then extubation, Several rib fractures due to cardiopulmonary resuscitation with a pneumothorax with chest tube placed and has been removed, Ischemic cardiomyopathy with systolic heart failure, Atrial Fibrillation, Biventricular pacemaker placed For the above cardiac-respiratory issues continue with amiodarone, Eliquis, metoprolol, Biventricular pacemaker for heart rate and rhythm control For CHF management: cardiology service managing patient's diuresis while patient has low blood pressure patient received IV lasix with albumin on 03/09/17 Other remaining health issues: Hoarseness of throat and dysphagia s/p extubation - followed by speech and swallow services, ENT outpatient appointment made TYPE 2 DM HbA1c 6.9 does not seem insulin dependent based on HbA1c, continue oral metformin GERD/Hiatal Hernia continue Protonix DVT PROPHYLAXIS continue Eliquis Disposition: Patient is not ready for hospital discharge as per cardiology service Patient has family members who initially voiced their preference to take patient to their home and have him obtain outpatient physical rehabilitation Given that the patient is not ready for discharge, this disposition may change Prescriptions have been made for: 1) Oxygen 2.5L Nasal Cannula for ambulation, Oxygen concentrator and portable Oxygen concentrator 2) Test for Titration of SpO2 to 89% or greater on portable concentrator and/or conserving device 3) Hospital bed with HOB elevation above 45 degrees Follow up appointments 03/11/2017 1:[address] Darshan White, DO Family Practice [facility] 03/28/2017 Dr. Tanner, ENT, [facility] 04/02/2017 3:[address] Dylon Briggs, DO Cardiology, [facility] Vital Signs: Date Time Temp Pulse Resp B/P (MAP) Pulse Ox O2 Delivery O2 Flow Rate FiO2 03/09/17 16:00 95 Nasal Cannula 2.0 03/09/17 15:46 36.3 62 25 92/51 (65) 95 Humidified Air 2.0 03/09/17 14:25 65 20 96 Nasal Cannula 2.0 03/09/17 12:27 36.4 69 26 93/51 (65) 94 Oxymask 2.0 03/09/17 12:00 Oxymask 2.0 03/09/17 08:00 Oxymask 2.0 03/09/17 07:54 36.2 63 20 91/47 (62) 95 Room Air 03/09/17 07:28 62 20 97 Room Air 03/09/17 04:36 37.2 60 24 89/46 (60) 100 Oxymask 2.0 03/09/17 04:00 Oxymask 2.0 03/09/17 02:21 64 20 100 Mask 2.0 03/09/17 00:00 Oxymask 2.0 03/08/17 23:53 36.5 64 17 97/52 (67) 98 03/08/17 20:00 Oxymask 2.0 03/08/17 19:39 65 20 97 Room Air 03/08/17 19:30 99/49 (66) 03/08/17 19:24 36.4 61 23 99/49 (66) 96 Room Air Lab Results: Results Past 24 Hours Test 03/08/17 21:12 03/09/17 05:24 03/09/17 06:54 03/09/17 11:19 Range/Units Bedside Glucose 145 109 126 70-99 mg/dl Sodium Level 135 136-145 mmol/L Potassium Level 3.8 3.5-5.1 mmol/L Chloride Level 99 98-107 mmol/L Carbon Dioxide Level 32 21-32 mmol/L Anion Gap 4.0 3-11 mmol/L Blood Urea Nitrogen 21 7-18 mg/dl Creatinine 0.90 0.60-1.40 mg/dl Est Creatinine Clear Calc Drug Dose 79.0 ml/min Estimated GFR () 97.2 Estimated GFR (Non- 83.8 BUN/Creatinine Ratio 23.0 10-20 Random Glucose 103 70-99 mg/dl Calcium Level 8.3 8.5-10.1 mg/dl Total Bilirubin 0.6 0.2-1 mg/dl Aspartate Amino Transf (AST/SGOT) 13 15-37 U/L Alanine Aminotransferase (ALT/SGPT) 18 12-78 U/L Alkaline Phosphatase 128 45-117 U/L Total Protein 5.8 6.4-8.2 gm/dl Albumin 2.5 3.4-5.0 gm/dl Globulin 3.3 2.5-4.0 gm/dl Albumin/Globulin Ratio 0.8 0.9-2 Test 03/09/17 16:33 Range/Units Bedside Glucose 100 70-99 mg/dl
--- NOTE | 2017-03-09 21:33 | Progress Note ---
Post ICU Progress Note Date & Time Mar 09, 2017 at 21:30 Vital Signs Vital Signs Past 12 Hours Date Time Temp Pulse Resp B/P (MAP) Pulse Ox O2 Delivery O2 Flow Rate FiO2 03/09/17 20:32 61 20 92 Mask 2.0 03/09/17 19:44 36.6 62 22 92/51 (65) 93 Room Air 03/09/17 16:00 95 Nasal Cannula 2.0 03/09/17 15:46 36.3 62 25 92/51 (65) 95 Humidified Air 2.0 03/09/17 14:25 65 20 96 Nasal Cannula 2.0 03/09/17 12:27 36.4 69 26 93/51 (65) 94 Oxymask 2.0 03/09/17 12:00 Oxymask 2.0 Notes Mental Status: see Notes (Sleeping) Nausea / Vomiting: adequately controlled Pain: adequately controlled Airway Patency, RR, SpO2: stable & adequate BP & HR: stable & adequate Patient is a 76-year-old male who was initially admitted to the ICU status post V. tach arrest. Pneumothorax presents status post resuscitative efforts. Patient was indicated for extended period time, however was eventually successfully extubated and transferred to the floor. 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 Patient is slowly progressing. Patient is sleeping at the time of evaluation. Review of chart was performed. Consider outpatient follow up in 1 to 2 weeks with: Per admitting team. Repeat imaging needed: Per primary team. Follow up cultures: N/A Reviewed progress notes, labs, and inpatient medication list Continue current management Additional recommendations: None at this time. Thank you for allowing us to participate in the care of this patient. At this time, Critical Care Services will sign off on patient's care. Please feel free to reconsult as needed. Consults & Procedures Consultants: cardiology Procedures: Surgical chest tubes 2 both removed Arterial Line Central Line
[2017-03-10] VITALS (13 sets, daily range): BP systolic 92–108; BP diastolic 42–58; PULSE 60–71; TEMP 36.3–37.2; O2SAT 93–98
[2017-03-10] MEDS: LEVALBUTEROL 0.63MG/3 ML NEB INH SCH ×4 (01:36→18:28)
[2017-03-10] MEDS: IPRATROPIUM BROMIDE NEB SOLN 0.02% 2.5 ML VIAL INH SCH ×4 (01:36→18:28)
[2017-03-10 06:25] LABS: ALBUMIN 2.8 gm/dl (3.4-5.0); CALCIUM 8.7 mg/dl (8.5-10.1); CREATININE 0.92 mg/dl (0.60-1.40)
[2017-03-10] MEDS: MAGNESIUM CHLORIDE 64MG DELAYED REL TAB PO SCH ×2 (07:55→21:25)
[2017-03-10] MEDS: APIXABAN 2.5 MG TAB PO SCH ×2 (07:55→21:25)
[2017-03-10] MEDS: AMIODARONE 200 MG TAB PO SCH ×2 (07:56→21:24)
[2017-03-10] MEDS: SPIRONOLACTONE 25 MG TAB PO SCH (07:56)
[2017-03-10] MEDS: POTASSIUM CHLORIDE 20 MEQ TABCR PO SCH (07:56)
[2017-03-10] MEDS: METOPROLOL SUCC 25MG EXT REL TAB PO SCH (07:56)
[2017-03-10] MEDS: PANTOprazole SOD 40 MG TAB PO SCH (07:56)
[2017-03-10] MEDS: POLYETHYLENE (MIRALAX) 17 GM PACK PO SCH (07:57)
[2017-03-10] MEDS: INSULIN ASPART 100 UNITS/ML 3 ML PEN SC SCH ×4 (08:00→21:00)
[2017-03-10] MEDS ORDERED: ALBUMIN 25% 50 ML with FUROSEMIDE INJ 40 MG IV ONE ×2 (10:30)
--- NOTE | 2017-03-10 12:57 | Cardiology Follow-Up ---
Subjective General Date of Service: Mar 10, 2017. Chief Complaint: follow-up acute on chronic systolic heart failure, cardiac arrest Pt evaluation today including: conversation w/ patient, physical exam History of Present Illness The patient is a 76 year old male seen in follow up. Still tired. LE edema unchanged. Allergies Coded Allergies: Lisinopril (Verified Adverse Reaction, Intermediate, HIGH POTASSIUM LEVELS , 03/01/17) Atorvastatin (Verified Adverse Reaction, Mild, muscle weakness in legs, ) Social History Smoking Status: Former Smoker Hx Tobacco Use In Past Year?: Yes Hx Alcohol Use - Type And Amou: Yes (Social) Hx Substance Use - Type And Am: No Problem List Medical Problems: (1) Elevated troponin Status: Acute (2) Pneumothorax on right Status: Acute (3) Pulmonary edema Status: Acute (4) Rib fractures Status: Acute (5) Ventricular tachycardia Status: Acute Physical Exam Vital Signs Last Vital Signs Documentation Date Time Temp Pulse Resp B/P (MAP) Pulse Ox O2 Delivery O2 Flow Rate FiO2 03/10/17 12:00 Oxymask 03/10/17 10:55 36.4 67 20 97/58 (71) 94 03/10/17 07:24 2.0 02/26/17 12:00 40 Physical Exam Constitutional: Level of Distress: acutely ill, chronically ill Psychiatric: Mental Status: active & alert Orientation: to time, to place, to person Memory: recent memory normal, remote memory normal Head: normocephalic, atraumatic Eyes: Pupils: PERRLA Neck: pertinent finding (Elevated JVP) Lungs: Auscultation: no wheezing, no rales/crackles, deminished air movement, decreased breath sounds, rhonchi Cardiovascular: Heart Auscultation: RRR, no rubs, II/ SHANNON, gallop Peripheral Pulses: Dorsalis Pedis Pulse: absent on the left, absent on the right Abdomen: Bowel Sounds: normal Inspection & Palpation: soft Extremities: no cyanosis, no clubbing, edema (2+) Neurologic: Cranial Nerves: grossly intact Assessment and Plan Assessment and Plan IMPRESSION: 76 year old male 1. Out of hospital cardiac ventricular tachycardia arrest status post appropriate defibrillation via a life vest 2. Complex resuscitation in house complicated by arrhythmias, congestive heart failure, several bilateral rib fractures, pneumothorax, electrolyte disturbances , prolonged intubation. 3. Known severe ischemic cardiomyopathy with systolic heart failure, EF 25-30% , NYHA Functional Class III with a left bundle branch block, QRS duration greater than 150 ms. 4. Newly diagnosed paroxysmal atrial fibrillation this admission, currently in sinus rhythm on amiodarone and Eliquis 5. Status post biventricular pacemaker defibrillator implantation with the LV pacing lead in the His bundle position ,03/05/17, Dr Blanc 6. Abnormal swallow evaluation, aspiration risk. 7. Debilitation, hypoalbuminemia RECOMMENDATIONS: Diuresed a bit more with albumin plus furosemide 40 mg IV on 03/09. Will administer albumin / furosemide 40 mg IV again today. Will DC foster this afternoon. Reassess again tomorrow , prior to placing diuretic dose. Continue to increase activity. Will need outpatient rehabilitation. Continue to hold losartan due to relative hypotension. Continue amiodarone for suppression of ventricular tachycardia and atrial fibrillation. Laboratory Results Last 24 Hours Test 03/09/17 16:33 03/09/17 21:02 03/10/17 05:29 03/10/17 06:31 Bedside Glucose 100 mg/dl 86 mg/dl 109 mg/dl Sodium Level 137 mmol/L Potassium Level 4.0 mmol/L Chloride Level 100 mmol/L Carbon Dioxide Level 35 mmol/L Anion Gap 2.0 mmol/L Blood Urea Nitrogen 20 mg/dl Creatinine 0.92 mg/dl Est Creatinine Clear Calc Drug Dose 77.3 ml/min Estimated GFR () 94.6 Estimated GFR (Non- 81.6 BUN/Creatinine Ratio 22.0 Random Glucose 95 mg/dl Calcium Level 8.7 mg/dl Magnesium Level 2.4 mg/dl Total Bilirubin 0.6 mg/dl Aspartate Amino Transf (AST/SGOT) 14 U/L Alanine Aminotransferase (ALT/SGPT) 19 U/L Alkaline Phosphatase 135 U/L Total Protein 6.0 gm/dl Albumin 2.8 gm/dl Globulin 3.2 gm/dl Albumin/Globulin Ratio 0.9 Test 03/10/17 11:36 Bedside Glucose 116 mg/dl
[2017-03-10] MEDS: METFORMIN HCL 500 MG TAB PO SCH (17:43)
--- NOTE | 2017-03-10 19:22 | Progress Note ---
Internal Med Progress Note Date of Service: Mar 10, 2017. Provider Documentation: SUBJECTIVE: Known to have hoarseness of his voice. Able to sit up and cooperative with physical exam. 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 ; EF < 30 % presented with Vtach cardiac arrest pt was placed on Zoll Life vest - became unresponsive at home, followed by shock therapy by life vest pt was shocked once by the life vest at home , and twice in ED developed Vtach Cardiac arrest -leading to CPR Hospital Course to Date 02/18/2017: admitted to ICU intubated/ started on Pressors, was placed on hypothermic protocol s/p right IJ central venous, right radial arterial line was inserted for continuous monitoring of blood pressures while on multiple vasopressors, developed pneumothorax and s/p right chest tube placement, while in ICU , cardiac rhythm changed to Afib on amiodarone gtt/IV heparin started due arrhythmia AICD placement 02/19/17 taken off Hypothermic protocol MRI of brain 02/21/17 Findings concerning for a punctate focus of ischemia at the junction of the right inferior jeannie and medulla. This may represent a small lacunar infarct versus a punctate embolic infarct. No evidence of anoxic brain injury. 02/25 chest tube discontinued 02/26 extubated 02/27 amiodarone drip stopped; PO amiodarone started IV heparin stopped; Eliquis started, transfer from ICU to telemetry 03/05 BiV pacemaker placed, restart Eliquis Summary s/p VTACH CARDIAC ARREST (ROBERTO ON CKD STAGE 3 / Lactic Acidosis / Elevated Troponins have resolved), Respiratory Failure with intubation and then extubation, Several rib fractures due to cardiopulmonary resuscitation with a pneumothorax with chest tube placed and has been removed, Ischemic cardiomyopathy with systolic heart failure, Atrial Fibrillation, Biventricular pacemaker placed For the above cardiac-respiratory issues continue with amiodarone, Eliquis, metoprolol, Biventricular pacemaker for heart rate and rhythm control For CHF management: cardiology service managing patient's diuresis while patient has low blood pressure patient received IV lasix with albumin on 03/09/17 and on 03/10/17 Other remaining health issues: Hoarseness of throat and dysphagia s/p extubation - followed by speech and swallow services, ENT outpatient appointment made TYPE 2 DM HbA1c 6.9 does not seem insulin dependent based on HbA1c, continue oral metformin GERD/Hiatal Hernia continue Protonix DVT PROPHYLAXIS continue Eliquis Disposition: Patient is not ready for hospital discharge as per cardiology service and will need stable oral diuresis regimen before discharge Patient has family members who initially voiced their preference to take patient to their home and have him obtain outpatient physical rehabilitation Prescriptions have been made for: 1) Oxygen 2.5L Nasal Cannula for ambulation, Oxygen concentrator and portable Oxygen concentrator 2) Test for Titration of SpO2 to 89% or greater on portable concentrator and/or conserving device 3) Hospital bed with HOB elevation above 45 degrees Follow up appointments 03/11/2017 1:[address] Darshan White, DO Family Practice [facility] - this appointment will need to be res-scheduled 03/28/2017 Dr. Tanner, ENT, [facility] 04/02/2017 3:[address] Dylon Briggs, DO Cardiology, [facility] Vital Signs: Date Time Temp Pulse Resp B/P (MAP) Pulse Ox O2 Delivery O2 Flow Rate FiO2 03/10/17 18:28 71 18 95 Mask 2.0 03/10/17 16:00 98 Room Air 2.0 03/10/17 15:01 36.3 64 22 97/47 (64) 97 Room Air 03/10/17 14:07 60 18 95 Mask 2.0 03/10/17 12:00 Oxymask 03/10/17 10:55 36.4 67 20 97/58 (71) 94 Room Air 03/10/17 08:00 Oxymask 03/10/17 07:54 107/49 (68) 03/10/17 07:24 60 18 94 Mask 2.0 03/10/17 07:21 36.7 60 20 92/42 (59) 93 Room Air 03/10/17 04:24 37.2 62 18 108/56 (73) 95 Oxymask 2.0 03/10/17 04:00 Nasal Cannula 2.0 03/10/17 01:36 60 20 93 Mask 2.0 03/10/17 00:32 36.5 61 21 102/47 (65) 96 03/10/17 00:00 Nasal Cannula 2.0 03/09/17 20:32 61 20 92 Mask 2.0 03/09/17 20:00 93 Nasal Cannula 2.0 03/09/17 19:44 36.6 62 22 92/51 (65) 93 Room Air Lab Results: Results Past 24 Hours Test 03/09/17 21:02 03/10/17 05:29 03/10/17 06:31 03/10/17 11:36 Range/Units Bedside Glucose 86 109 116 70-99 mg/dl Sodium Level 137 136-145 mmol/L Potassium Level 4.0 3.5-5.1 mmol/L Chloride Level 100 98-107 mmol/L Carbon Dioxide Level 35 21-32 mmol/L Anion Gap 2.0 3-11 mmol/L Blood Urea Nitrogen 20 7-18 mg/dl Creatinine 0.92 0.60-1.40 mg/dl Est Creatinine Clear Calc Drug Dose 77.3 ml/min Estimated GFR () 94.6 Estimated GFR (Non- 81.6 BUN/Creatinine Ratio 22.0 10-20 Random Glucose 95 70-99 mg/dl Calcium Level 8.7 8.5-10.1 mg/dl Magnesium Level 2.4 1.8-2.4 mg/dl Total Bilirubin 0.6 0.2-1 mg/dl Aspartate Amino Transf (AST/SGOT) 14 15-37 U/L Alanine Aminotransferase (ALT/SGPT) 19 12-78 U/L Alkaline Phosphatase 135 45-117 U/L Total Protein 6.0 6.4-8.2 gm/dl Albumin 2.8 3.4-5.0 gm/dl Globulin 3.2 2.5-4.0 gm/dl Albumin/Globulin Ratio 0.9 0.9-2 Test 03/10/17 16:12 Range/Units Bedside Glucose 98 70-99 mg/dl
[2017-03-11] VITALS (9 sets, daily range): BP systolic 94–120; BP diastolic 52–63; PULSE 60–90; TEMP 36.3–37; O2SAT 92–98
[2017-03-11] MEDS: LEVALBUTEROL 0.63MG/3 ML NEB INH SCH ×2 (02:17→07:07)
[2017-03-11] MEDS: IPRATROPIUM BROMIDE NEB SOLN 0.02% 2.5 ML VIAL INH SCH ×2 (02:17→07:07)
[2017-03-11 05:59] LABS: BASO % 0.2 %; BASO ABS # 0.01 K/uL (0-0.2); EOS % 3.3 %; EOS ABS # 0.16 K/uL (0-0.5); HEMATOCRIT 33.4 % (42-52); IG# 0.02 K/uL (0.00-0.02); LYMPH ABS # 1.45 K/uL (1.2-3.4); MEAN CELL VOLUME 99.7 fL (80-100); MEAN CORPUSCULAR HEMOGLOBIN 32.8 pg (25-34); MEAN CORPUSCULAR HGB CONC 32.9 g/dl (32-36); MEAN PLATELET VOLUME 10.6 fL (7.4-10.4); MONO ABS # 0.58 K/uL (0.11-0.59); NEUT % 54.1 %; NEUT ABS # 2.61 K/uL (1.4-6.5); PLATELET COUNT 142 K/uL (130-400); RED CELL DISTRIBUTION WIDTH CV 17.3 % (11.5-14.5); RED CELL DISTRIBUTION WIDTH SD 61.9 fL (36.4-46.3); WHITE BLOOD COUNT 4.83 K/uL (4.8-10.8)
[2017-03-11 06:27] LABS: ALBUMIN 2.7 gm/dl (3.4-5.0); CALCIUM 8.9 mg/dl (8.5-10.1); CREATININE 1.1 mg/dl (0.60-1.40); POTASSIUM 4.3 mmol/L (3.5-5.1)
[2017-03-11 06:30] LABS: TOTAL PROTEIN 5.8 gm/dl (6.4-8.2)
[2017-03-11] MEDS: MAGNESIUM CHLORIDE 64MG DELAYED REL TAB PO SCH ×2 (08:43→20:53)
[2017-03-11] MEDS: POTASSIUM CHLORIDE 20 MEQ TABCR PO SCH (08:43)
[2017-03-11] MEDS: APIXABAN 2.5 MG TAB PO SCH ×2 (08:43→20:55)
[2017-03-11] MEDS: SPIRONOLACTONE 25 MG TAB PO SCH (08:43)
[2017-03-11] MEDS: METOPROLOL SUCC 25MG EXT REL TAB PO SCH (08:44)
[2017-03-11] MEDS: PANTOprazole SOD 40 MG TAB PO SCH (08:44)
[2017-03-11] MEDS: AMIODARONE 200 MG TAB PO SCH ×2 (08:44→20:53)
[2017-03-11] MEDS: POLYETHYLENE (MIRALAX) 17 GM PACK PO SCH (08:45)
[2017-03-11] MEDS: INSULIN ASPART 100 UNITS/ML 3 ML PEN SC SCH ×4 (08:45→20:54)
--- NOTE | 2017-03-11 11:03 | Progress Note ---
Internal Med Progress Note Date of Service: Mar 11, 2017. Provider Documentation: SUBJECTIVE: Seen and examined at bedside "I feel groggy and tired" Denies any SOB, cough, dizziness Has hoarseness of voice B/L leg edema about the same Family at bedside Reports some rib pain intermittently OBJECTIVE: Vital Signs-as noted below Physical Exam: General Appearance:Moderately built and nourished, no apparent distress Head: normocephalic, Atraumatic Eyes: normal inspection, EOMI, PERRL Neck: supple, Trachea midline Respiratory/Chest: B/L air entry, Normal breath sounds, CTA Cardiovascular: S1, S2, No murmur Abdomen/GI:Soft, Non tender, Bowel sounds present Extremities/Musculoskelatal:normal inspection, B/L 2+ LE edema Neurologic/Psych:AAOX3, grossly no focal neurological deficits Skin: normal color, warm Lab data as noted below. 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 ; EF < 30 % presented with Vtach cardiac arrest pt was placed on Zoll Life vest - became unresponsive at home, followed by shock therapy by life vest pt was shocked once by the life vest at home , and twice in ED developed Vtach Cardiac arrest -leading to CPR Hospital Course: 02/18/2017: admitted to ICU intubated/ started on Pressors, was placed on hypothermic protocol s/p right IJ central venous, right radial arterial line Developed pneumothorax and s/p right chest tube placement 02/19/17: Discontinued on Hypothermia protocol MRI of brain 02/21/17 Findings concerning for a punctate focus of ischemia at the junction of the right inferior jeannie and medulla. This may represent a small lacunar infarct versus a punctate embolic infarct. No evidence of anoxic brain injury. 02/25/17: chest tube discontinued 02/26/17: extubated 03/05/17: BiV pacemaker placed S/P VTACH Cardiac arrest Acute respiratory Failure S/P Extubation S/P Hypothermia Protocol Several rib fractures due to cardiopulmonary resuscitation with a pneumothorax S /P chest tube placement and removal CHF: systolic and diastolic H/O Ischemic cardiomyopathy EF 25-30% LBBB with prolonged QRS S/P biventricular pacemaker defibrillator implantation on 03/05/17 by S/P IV lasix and albumin On Torsemide and spironolactone Monitor electrolytes Cardiology following Ventricular tachycardia and New P.atrial fibrillation after cardiac ventricular tachycardia arrest Continue amiodarone, Metoprolol for rate control On Eliquis for anticoagulation Appreciate Cardiology Input Abnormal Swallow Eval: Aspiration precautions Speech and swallow eval completed Hoarseness of throat and dysphagia s/p extubation: Needs follow up with ENT as outpatient ROBERTO on CKD III: Resolved Cr at baseline Losartan on hold secondary to relative hypotension DM II: HbA1c 6.9 Continue metformin, ISS GERD/Hiatal Hernia continue PPI DVT Px: On Eliquis Disposition: Needs 2 step prior to discharge Follow up appointments: Follow up with Dr.Dominic White For Primary Care Follow up with Dr. Tanner, ENT, [facility] on 03/28/[address] Briggs,Cardiology on 04/02/2017 at 3:00 PM Vital Signs: Date Time Temp Pulse Resp B/P (MAP) Pulse Ox O2 Delivery O2 Flow Rate FiO2 03/11/17 08:23 36.4 60 19 94/53 (67) 98 Nasal Cannula 2.0 03/11/17 08:00 Oxymask 2.0 03/11/17 07:08 60 18 97 Mask 2.0 03/11/17 04:15 36.3 60 20 120/57 (78) 94 Oxymask 2.0 03/11/17 04:00 Oxymask 2.0 03/11/17 02:17 60 18 95 Mask 2.0 03/11/17 00:24 37.0 90 22 116/52 (73) 92 Oxymask 2.0 03/10/17 23:59 Oxymask 2.0 03/10/17 20:00 98 Room Air 2.0 03/10/17 19:10 36.4 70 18 95/50 (65) 94 Oxymask 2.0 03/10/17 18:28 71 18 95 Mask 2.0 03/10/17 16:00 98 Room Air 2.0 03/10/17 15:01 36.3 64 22 97/47 (64) 97 Room Air 03/10/17 14:07 60 18 95 Mask 2.0 03/10/17 12:00 Oxymask Lab Results: Results Past 24 Hours Test 03/10/17 11:36 03/10/17 16:12 03/10/17 20:23 03/11/17 05:26 Range/Units Bedside Glucose 116 98 144 70-99 mg/dl White Blood Count 4.83 4.8-10.8 K/uL Red Blood Count 3.35 4.7-6.1 M/uL Hemoglobin 11.0 14.0-18.0 g/dL Hematocrit 33.4 42-52 % Mean Corpuscular Volume 99.7 80-100 fL Mean Corpuscular Hemoglobin 32.8 25-34 pg Mean Corpuscular Hemoglobin Concent 32.9 32-36 g/dl Platelet Count 142 130-400 K/uL Mean Platelet Volume 10.6 7.4-10.4 fL Neutrophils (%) (Auto) 54.1 % Lymphocytes (%) (Auto) 30.0 % Monocytes (%) (Auto) 12.0 % Eosinophils (%) (Auto) 3.3 % Basophils (%) (Auto) 0.2 % Neutrophils # (Auto) 2.61 1.4-6.5 K/uL Lymphocytes # (Auto) 1.45 1.2-3.4 K/uL Monocytes # (Auto) 0.58 0.11-0.59 K/uL Eosinophils # (Auto) 0.16 0-0.5 K/uL Basophils # (Auto) 0.01 0-0.2 K/uL RDW Standard Deviation 61.9 36.4-46.3 fL RDW Coefficient of Variation 17.3 11.5-14.5 % Immature Granulocyte % (Auto) 0.4 % Immature Granulocyte # (Auto) 0.02 0.00-0.02 K/uL Sodium Level 138 136-145 mmol/L Potassium Level 4.3 3.5-5.1 mmol/L Chloride Level 100 98-107 mmol/L Carbon Dioxide Level 35 21-32 mmol/L Anion Gap 3.0 3-11 mmol/L Blood Urea Nitrogen 21 7-18 mg/dl Creatinine 1.10 0.60-1.40 mg/dl Est Creatinine Clear Calc Drug Dose 64.7 ml/min Estimated GFR () 76.2 Estimated GFR (Non- 65.8 BUN/Creatinine Ratio 19.5 10-20 Random Glucose 99 70-99 mg/dl Calcium Level 8.9 8.5-10.1 mg/dl Total Bilirubin 0.7 0.2-1 mg/dl Aspartate Amino Transf (AST/SGOT) 14 15-37 U/L Alanine Aminotransferase (ALT/SGPT) 17 12-78 U/L Alkaline Phosphatase 123 45-117 U/L Total Protein 5.8 6.4-8.2 gm/dl Albumin 2.7 3.4-5.0 gm/dl Globulin 3.1 2.5-4.0 gm/dl Albumin/Globulin Ratio 0.9 0.9-2 Test 03/11/17 06:48 Range/Units Bedside Glucose 101 70-99 mg/dl
[2017-03-11] MEDS: TORSEMIDE 20 MG TAB PO SCH (12:01)
--- NOTE | 2017-03-11 12:51 | Cardiology Follow-Up ---
Subjective General Date of Service: Mar 11, 2017. Chief Complaint: follow-up acute on chronic systolic heart failure, cardiac arrest Pt evaluation today including: conversation w/ patient, conversation w/ family , physical exam History of Present Illness The patient is a 76 year old male making ongoing progress. Weiss discontinued on 03/11 . Looks stronger this am. Still has hoarse voice. Allergies Coded Allergies: Lisinopril (Verified Adverse Reaction, Intermediate, HIGH POTASSIUM LEVELS , 03/01/17) Atorvastatin (Verified Adverse Reaction, Mild, muscle weakness in legs, ) Social History Smoking Status: Former Smoker Hx Tobacco Use In Past Year?: Yes Hx Alcohol Use - Type And Amou: Yes (Social) Hx Substance Use - Type And Am: No Problem List Medical Problems: (1) Elevated troponin Status: Acute (2) Pneumothorax on right Status: Acute (3) Pulmonary edema Status: Acute (4) Rib fractures Status: Acute (5) Ventricular tachycardia Status: Acute Physical Exam Vital Signs Last Vital Signs Documentation Date Time Temp Pulse Resp B/P (MAP) Pulse Ox O2 Delivery O2 Flow Rate FiO2 03/11/17 12:20 36.4 60 26 95/53 (67) 92 Mask 2.0 02/26/17 12:00 40 Physical Exam Constitutional: Level of Distress: acutely ill, chronically ill Psychiatric: Mental Status: active & alert Orientation: to time, to place, to person Memory: recent memory normal, remote memory normal Head: normocephalic, atraumatic Eyes: Pupils: PERRLA Neck: pertinent finding (Elevated JVP) Lungs: Auscultation: no wheezing, no rales/crackles, deminished air movement, decreased breath sounds, rhonchi Cardiovascular: Heart Auscultation: RRR, no rubs, II/ SHANNON, gallop Peripheral Pulses: Dorsalis Pedis Pulse: absent on the left, absent on the right Abdomen: Bowel Sounds: normal Inspection & Palpation: soft Extremities: no cyanosis, no clubbing, edema (2+) Neurologic: Cranial Nerves: grossly intact Assessment and Plan Assessment and Plan IMPRESSION: 76 year old male 1. Out of hospital cardiac ventricular tachycardia arrest status post appropriate defibrillation via a life vest 2. Complex resuscitation in house complicated by arrhythmias, congestive heart failure, several bilateral rib fractures, pneumothorax, electrolyte disturbances , prolonged intubation. 3. Known severe ischemic cardiomyopathy with systolic heart failure, EF 25-30% , NYHA Functional Class III with a left bundle branch block, QRS duration greater than 150 ms. 4. Newly diagnosed paroxysmal atrial fibrillation this admission, currently in sinus rhythm on amiodarone and Eliquis 5. Status post biventricular pacemaker defibrillator implantation with the LV pacing lead in the His bundle position ,03/05/17, Dr Blanc 6. Abnormal swallow evaluation, aspiration risk. 7. Debilitation, hypoalbuminemia RECOMMENDATIONS: Diuresed a bit more with albumin plus furosemide 40 mg IV on 03/09,03/11/17 Transition to torsemide 20 mg PO daily. Move forward with PT/ OT . Today, it looks more likely that he will be able to be discharged soon to [facility] 's house with home PT and close CHF follow up. Laboratory Results Last 24 Hours Test 03/10/17 16:12 03/10/17 20:23 03/11/17 05:26 03/11/17 06:48 Bedside Glucose 98 mg/dl 144 mg/dl 101 mg/dl White Blood Count 4.83 K/uL Red Blood Count 3.35 M/uL Hemoglobin 11.0 g/dL Hematocrit 33.4 % Mean Corpuscular Volume 99.7 fL Mean Corpuscular Hemoglobin 32.8 pg Mean Corpuscular Hemoglobin Concent 32.9 g/dl Platelet Count 142 K/uL Mean Platelet Volume 10.6 fL Neutrophils (%) (Auto) 54.1 % Lymphocytes (%) (Auto) 30.0 % Monocytes (%) (Auto) 12.0 % Eosinophils (%) (Auto) 3.3 % Basophils (%) (Auto) 0.2 % Neutrophils # (Auto) 2.61 K/uL Lymphocytes # (Auto) 1.45 K/uL Monocytes # (Auto) 0.58 K/uL Eosinophils # (Auto) 0.16 K/uL Basophils # (Auto) 0.01 K/uL RDW Standard Deviation 61.9 fL RDW Coefficient of Variation 17.3 % Immature Granulocyte % (Auto) 0.4 % Immature Granulocyte # (Auto) 0.02 K/uL Sodium Level 138 mmol/L Potassium Level 4.3 mmol/L Chloride Level 100 mmol/L Carbon Dioxide Level 35 mmol/L Anion Gap 3.0 mmol/L Blood Urea Nitrogen 21 mg/dl Creatinine 1.10 mg/dl Est Creatinine Clear Calc Drug Dose 64.7 ml/min Estimated GFR () 76.2 Estimated GFR (Non- 65.8 BUN/Creatinine Ratio 19.5 Random Glucose 99 mg/dl Calcium Level 8.9 mg/dl Total Bilirubin 0.7 mg/dl Aspartate Amino Transf (AST/SGOT) 14 U/L Alanine Aminotransferase (ALT/SGPT) 17 U/L Alkaline Phosphatase 123 U/L Total Protein 5.8 gm/dl Albumin 2.7 gm/dl Globulin 3.1 gm/dl Albumin/Globulin Ratio 0.9 Test 03/11/17 11:10 Bedside Glucose 148 mg/dl
[2017-03-11] MEDS ORDERED: LEVALBUTEROL 0.63MG/3 ML NEB INH PRN (15:00)
[2017-03-11] MEDS: METFORMIN HCL 500 MG TAB PO SCH (17:14)
[2017-03-12 00:16] VITALS: BP 102/55; PULSE 60; TEMP 36.6; O2SAT 96
[2017-03-12 04:39] VITALS: BP 105/52; PULSE 64; TEMP 37; O2SAT 94
[2017-03-12 06:41] LABS: CALCIUM 8.9 mg/dl (8.5-10.1); CREATININE 1.14 mg/dl (0.60-1.40); POTASSIUM 3.9 mmol/L (3.5-5.1)
[2017-03-12 08:06] VITALS: BP 94/43; PULSE 60; TEMP 36.8; O2SAT 97
[2017-03-12] MEDS: INSULIN ASPART 100 UNITS/ML 3 ML PEN SC SCH ×2 (08:10→12:02)
[2017-03-12] MEDS: MAGNESIUM CHLORIDE 64MG DELAYED REL TAB PO SCH (08:11)
[2017-03-12] MEDS: SPIRONOLACTONE 25 MG TAB PO SCH (08:11)
[2017-03-12] MEDS: POTASSIUM CHLORIDE 20 MEQ TABCR PO SCH (08:11)
[2017-03-12] MEDS: PANTOprazole SOD 40 MG TAB PO SCH (08:11)
[2017-03-12] MEDS: POLYETHYLENE (MIRALAX) 17 GM PACK PO SCH (08:12)
[2017-03-12] MEDS: AMIODARONE 200 MG TAB PO SCH (08:12)
[2017-03-12] MEDS: APIXABAN 2.5 MG TAB PO SCH (08:12)
[2017-03-12] MEDS: METOPROLOL SUCC 25MG EXT REL TAB PO SCH (08:12)
[2017-03-12] MEDS: TORSEMIDE 20 MG TAB PO SCH (08:16)
--- NOTE | 2017-03-12 10:13 | Cardiology Follow-Up ---
Subjective General Date of Service: Mar 12, 2017. Chief Complaint: follow-up acute on chronic systolic heart failure, cardiac arrest Pt evaluation today including: conversation w/ patient, physical exam History of Present Illness The patient is a 76 year old male seen in follow up. Patient still looks tired, but improved compared to 3 days ago. Telemetry reveals appropriate V pacing, no AF, or VT. Allergies Coded Allergies: Lisinopril (Verified Adverse Reaction, Intermediate, HIGH POTASSIUM LEVELS , 03/01/17) Atorvastatin (Verified Adverse Reaction, Mild, muscle weakness in legs, ) Social History Smoking Status: Former Smoker Hx Tobacco Use In Past Year?: Yes Hx Alcohol Use - Type And Amou: Yes (Social) Hx Substance Use - Type And Am: No Problem List Medical Problems: (1) Elevated troponin Status: Acute (2) Pneumothorax on right Status: Acute (3) Pulmonary edema Status: Acute (4) Rib fractures Status: Acute (5) Ventricular tachycardia Status: Acute Physical Exam Vital Signs Last Vital Signs Documentation Date Time Temp Pulse Resp B/P (MAP) Pulse Ox O2 Delivery O2 Flow Rate FiO2 03/12/17 08:06 36.8 60 18 94/43 (60) 97 03/12/17 04:39 Oxymask 2.0 02/26/17 12:00 40 Physical Exam Constitutional: Level of Distress: acutely ill, chronically ill Psychiatric: Mental Status: active & alert Orientation: to time, to place, to person Memory: recent memory normal, remote memory normal Head: normocephalic, atraumatic Eyes: Pupils: PERRLA Neck: pertinent finding (Elevated JVP) Lungs: Auscultation: no wheezing, no rales/crackles, deminished air movement, decreased breath sounds, rhonchi Cardiovascular: Heart Auscultation: RRR, no rubs, II/ SHANNON, gallop Peripheral Pulses: Dorsalis Pedis Pulse: absent on the left, absent on the right Abdomen: Bowel Sounds: normal Inspection & Palpation: soft Extremities: no cyanosis, no clubbing, edema (2+) Neurologic: Cranial Nerves: grossly intact Assessment and Plan Assessment and Plan IMPRESSION: 76 year old male 1. Out of hospital cardiac ventricular tachycardia arrest status post appropriate defibrillation via a life vest 2. Complex resuscitation in house complicated by arrhythmias, congestive heart failure, several bilateral rib fractures, pneumothorax, electrolyte disturbances , prolonged intubation. 3. Known severe ischemic cardiomyopathy with systolic heart failure, EF 25-30% , NYHA Functional Class III with a left bundle branch block, QRS duration greater than 150 ms. 4. Newly diagnosed paroxysmal atrial fibrillation this admission, currently in sinus rhythm on amiodarone and Eliquis 5. Status post biventricular pacemaker defibrillator implantation with the LV pacing lead in the His bundle position ,03/05/17, Dr Blanc 6. Abnormal swallow evaluation, aspiration risk. 7. Debilitation, hypoalbuminemia RECOMMENDATIONS: Edema note improved with IV furosemide / albumin.Hoever has been diuresing 2 L per day including with oral torsemide on 03/11. SBP is in th 85-95 mm Hg range, but no orthostatis. Stable for Discharge on current medications. No ABBEY / ARB due to low BP. Plan to discharge him to [facility] home, with home PT and close CHF follow up. Check device today if [employer] available, if not will check as outpatient on 03/14. Has 04/02/17 follow up visit with me. I contacted office to request an additional visit next week. 2 step pulse oximetry to determine if home Oxygen is necessary prior to DC. Discussed with Dr Galvez. Laboratory Results Last 24 Hours Test 03/11/17 11:10 03/11/17 16:16 03/11/17 20:22 03/12/17 05:38 Bedside Glucose 148 mg/dl 110 mg/dl 120 mg/dl Sodium Level 136 mmol/L Potassium Level 3.9 mmol/L Chloride Level 99 mmol/L Carbon Dioxide Level 34 mmol/L Anion Gap 3.0 mmol/L Blood Urea Nitrogen 26 mg/dl Creatinine 1.14 mg/dl Est Creatinine Clear Calc Drug Dose 62.4 ml/min Estimated GFR () 73.0 Estimated GFR (Non- 63.0 BUN/Creatinine Ratio 22.9 Random Glucose 89 mg/dl Calcium Level 8.9 mg/dl Magnesium Level 2.4 mg/dl Test 03/12/17 07:09 Bedside Glucose 97 mg/dl
[2017-03-12 11:38] VITALS: BP 90/46; PULSE 76; TEMP 36.6; O2SAT 96
--- NOTE | 2017-03-12 11:59 | Progress Note ---
Internal Med Progress Note Date of Service: Mar 12, 2017. Provider Documentation: SUBJECTIVE: Seen and examined at bedside Feels better today Denies any SOB, cough, dizziness Has hoarseness of voice B/L leg edema about the same Reports some rib pain intermittently Discussed with Cardiology today 2 step done: Does not qualify for oxygen Patient prefers to be discharged home with home health/PT OBJECTIVE: Vital Signs-as noted below Physical Exam: General Appearance:Moderately built and nourished, no apparent distress Head: normocephalic, Atraumatic Eyes: normal inspection, EOMI, PERRL Neck: supple, Trachea midline Respiratory/Chest: B/L air entry, Normal breath sounds, CTA Cardiovascular: S1, S2, No murmur Abdomen/GI:Soft, Non tender, Bowel sounds present Extremities/Musculoskelatal:normal inspection, B/L 2+ LE edema Neurologic/Psych:AAOX3, grossly no focal neurological deficits Skin: normal color, warm Lab data as noted below. 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 ; EF < 30 % presented with Vtach cardiac arrest pt was placed on Zoll Life vest - became unresponsive at home, followed by shock therapy by life vest pt was shocked once by the life vest at home , and twice in ED developed Vtach Cardiac arrest -leading to CPR Hospital Course: 02/18/2017: admitted to ICU intubated/ started on Pressors, was placed on hypothermic protocol s/p right IJ central venous, right radial arterial line Developed pneumothorax and s/p right chest tube placement 02/19/17: Discontinued on Hypothermia protocol MRI of brain 02/21/17 Findings concerning for a punctate focus of ischemia at the junction of the right inferior jeannie and medulla. This may represent a small lacunar infarct versus a punctate embolic infarct. No evidence of anoxic brain injury. 02/25/17: chest tube discontinued 02/26/17: extubated 03/05/17: BiV pacemaker placed S/P VTACH Cardiac arrest Acute respiratory Failure S/P Extubation S/P Hypothermia Protocol Several rib fractures due to cardiopulmonary resuscitation with a pneumothorax S /P chest tube placement and removal CHF: systolic and diastolic H/O Ischemic cardiomyopathy EF 25-30% LBBB with prolonged QRS S/P biventricular pacemaker defibrillator implantation on 03/05/17 by S/P IV lasix and albumin On Torsemide and spironolactone Monitor electrolytes Appreciate Cardiology Input 2 step: Did not qualify for Oxygen Ventricular tachycardia and New P.atrial fibrillation after cardiac ventricular tachycardia arrest Continue amiodarone, Metoprolol for rate control On Eliquis for anticoagulation Appreciate Cardiology Input Abnormal Swallow Eval: Aspiration precautions Speech and swallow eval completed Hoarseness of throat and dysphagia s/p extubation: Needs follow up with ENT as outpatient ROBERTO on CKD III: Resolved Cr at baseline Losartan on hold secondary to relative hypotension DM II: HbA1c 6.9 Continue metformin, ISS GERD/Hiatal Hernia continue PPI DVT Px: On Eliquis Disposition: Follow up appointments: Plan to discharge home with home PT once Pacemaker check done today Follow up with Dr.Dominic White for Primary Care on 03/14/17 at 12:45pm Follow up with Dr. Tanner, ENT, [facility] on 03/28/2017 at 8: 15am Follow up with Dr. Briggs,Cardiology on Mar 19, 2017 at 2:45pm and also on at 3:00 PM Vital Signs: Date Time Temp Pulse Resp B/P (MAP) Pulse Ox O2 Delivery O2 Flow Rate FiO2 03/12/17 11:38 36.6 76 18 90/46 (61) 96 03/12/17 08:06 36.8 60 18 94/43 (60) 97 03/12/17 08:00 Oxymask 2.0 03/12/17 04:39 37.0 64 18 105/52 (69) 94 Oxymask 2.0 03/12/17 04:00 Oxymask 2.0 03/12/17 00:16 36.6 60 16 102/55 (71) 96 Nasal Cannula 3.0 03/11/17 23:59 Oxymask 2.0 03/11/17 19:54 36.7 60 24 105/58 (74) 92 Oxymask 3.0 03/11/17 16:00 Oxymask 2.0 03/11/17 15:21 36.3 60 20 114/57 (76) 95 Nasal Cannula 2.0 03/11/17 12:20 36.4 60 26 95/53 (67) 92 Mask 2.0 Lab Results: Results Past 24 Hours Test 03/11/17 16:16 03/11/17 20:22 03/12/17 05:38 03/12/17 07:09 Range/Units Bedside Glucose 110 120 97 70-99 mg/dl Sodium Level 136 136-145 mmol/L Potassium Level 3.9 3.5-5.1 mmol/L Chloride Level 99 98-107 mmol/L Carbon Dioxide Level 34 21-32 mmol/L Anion Gap 3.0 3-11 mmol/L Blood Urea Nitrogen 26 7-18 mg/dl Creatinine 1.14 0.60-1.40 mg/dl Est Creatinine Clear Calc Drug Dose 62.4 ml/min Estimated GFR () 73.0 Estimated GFR (Non- 63.0 BUN/Creatinine Ratio 22.9 10-20 Random Glucose 89 70-99 mg/dl Calcium Level 8.9 8.5-10.1 mg/dl Magnesium Level 2.4 1.8-2.4 mg/dl
[2017-03-12] MEDS ORDERED: MRLP17 PO (12:14)
[2017-03-12] MEDS ORDERED: GLC500 PO (12:14)
[2017-03-12] MEDS ORDERED: ELQ25 PO (12:14)
[2017-03-12] MEDS ORDERED: SLWMEC PO (12:14)
[2017-03-12] MEDS ORDERED: CRD200 PO (12:14)
--- NOTE | 2017-03-12 12:17 | Discharge Summary ---
Discharge Summary Date of Service Mar 12, 2017. Discharge Summary Admission Date: Feb 17, 2017 at 02:38 Discharge Date: Mar 12, 2017 Discharge Disposition: Home with services Principal Diagnosis: Cardiac arrest Procedures: CT head: No acute intracranial abnormality CT chest: 1. Extensive right-sided subcutaneous emphysema. 2. Small right and to lesser extent left pleural effusions with superimposed basilar atelectasis. 3. Small right-sided pneumothorax with maximal pleural separation of 1.4 cm. 4. Endotracheal tube origin right main stem bronchus. This should be pulled back several centimeters. 5. Nasogastric tube at or slightly distal to the gastroesophageal junction. 6. Several nondisplaced bilateral rib fractures. 7. Components of congestive heart failure CT ABD: No significant abnormality identified within the abdomen or pelvis. Subcutaneous air lateral right hemithorax and anterior right abdominal wall region. Colonic diverticulosis. Video swallow: 1. Aspiration with thin and nectar thick liquids. 2. Please see the speech pathologist report for detailed findings and recommendations. ECHO: * The left ventricle is normal in size. * Moderate concentric left ventricular hypertrophy is present in segments with relatively normal wall motion * There is thinninig and scar of the inferior base, posterior and inferolateral ye. * Septal motion is consistent with conduction abnormality. * There is moderate apical wall hypokinesis. * There is inferior wall akinesis. * There is posterior wall akinesis. * Ejection Fraction = 25-30%. * There is moderate to severe mitral regurgitation. * There is no pericardial effusion. Consultations: cardio, Neuro, Delinquent Notice Machine Operator Pending Studies/Follow-Up: Follow up with Dr.Dominic White for Primary Care on 03/14/17 at 12:45pm Follow up with Dr. Tanner, ENT, [facility] on 03/28/2017 at 8: 15am Follow up with Dr. Briggs,Cardiology on Mar 19, 2017 at 2:45pm and also on at 3:00 PM Seek immediate medical attention if your symptoms reoccur or worsen Medication Reconciliation New Medications: Nebulizer Machine (Home Use) (Nebulizer Machine (Home Use) ) Mis EA N/A UD, #1 Amiodarone HCl (Amiodarone HCl) 200 Mg Tab 200 MG PO BID for 30 Days, #60 TAB 1 Refill Apixaban (Eliquis) 2.5 Mg Tab 5 MG PO BID for 30 Days, #120 TAB 1 Refill Magnesium Chloride (Slow-Mag Tab) 64 Mg Tabcr 64 MG PO BID for 7 Days, #14 EA Metformin HCl (Metformin HCl) 500 Mg Tab 500 MG PO BID for 30 Days, #60 TAB 1 Refill Polyethylene (Miralax) 17 Gm Pow 17 GM PO DAILY PRN for Constipation for 7 Days, #7 EA Continued Medications: Aspirin (Aspirin Ec) 81 Mg Tab 81 MG PO HS Ipratropium-Albuterol (Combivent Respimat) 1 Aer Aer 1 PUFFS INH QID PRN for Wheezing Ipratropium-Albuterol (Duoneb) 3 Ml Nebu 1 TREATMENT INH TID, INHA Metoprolol Succinate (Toprol Xl) 25 Mg Tabcr 25 MG PO QAM Omeprazole (Prilosec) 20 Mg Capcr 20 MG PO QAM PRN for Heartburn Rosuvastatin Calcium (Crestor) 5 Mg Tab 5 MG PO QAM for 30 Days, #30 TAB Spironolactone (Aldactone) 25 Mg Tab 25 MG PO QAM Sucralfate (Carafate) 1 Gm/10 Ml Susp 1 GM PO ACHS PRN for Heartburn Torsemide (Demadex) 20 Mg Tab 20 MG PO QAM Discontinued Medications: Home O2 Therapy (Oxygen) Gas 2 LITERS NA HS, BTL Losartan Potassium (Cozaar) 25 Mg Tab 25 MG PO QPM Sildenafil Citrate (Viagra) 25 Mg Tab 25 MG PO UD PRN for intercourse Admission Information HPI (per Admitting provider): Patient is a 76 yr male with PMH of silent KS in , LBBB, chronic systolic and diastolic CHF, dyslipidemia, DM II, and other problems who was discharged from [facility] in Dec 2016 after being treated for CHF exacerbation presents with history of being found unconscious on floor face down as per the family. History is limited as patient is currently sedated, intubated and hypothermia protocol secondary to cardiac arrest from Ventricular arrhythmias. Patient's family reports that patient has been complained of not feeling well since last 2 days. Patient was evaluated by Ariel MUNIZ on 02/14/17 and was made aware having trouble to get his supplemental oxygen and reported some upper abdomen discomfort associated with SOB on exertion& non productive cough. He was started on Duonebs PRN and the patient was told that he might need pacemaker /defibrillator. Family reports that he is currently on Life Vest and noticed that it shocked once while at home and twice while in ED. Patient initially awoke and was conversive after initial shock at home but became unconscious again in ED. Andrea conte was called and ER physician reported that patient went into Ventricular arrhythmias and was intubated, later started on Hypothermia protocol, amiodarone and pressors. CT head showed no acute intracranial abnormality. Patient had pneumothorax and chest tube was placed. Physical Exam (per Admitting): General Appearance: WD/WN, no apparent distress, + pertinent finding ( Sedated and Intubated, cyanotic ) Head: normocephalic, atraumatic Eyes: normal inspection, PERRL, sclerae normal ENT: normal ENT inspection Neck: supple, trachea midline Respiratory/Chest: no accessory muscle use, + decreased breath sounds, + crackles Cardiovascular: regular rate, rhythm, no murmur, + pertinent finding (Trace edema ) Abdomen/GI: normal bowel sounds, non tender, soft Back: normal inspection Extremities/Musculoskelatal: normal inspection, + pertinent finding (Trace pedal edema ) Neurologic/Psych: + pertinent finding Skin: + cyanosis, + pertinent finding (On hypothermia protocol) Hospital Course Patient is a 76 yr male with PMH of CAD with ischemic cardiomyopathy,CHF with combined systolic and diastolic HF ; EF < 30 % presented with Vtach cardiac arrest pt was placed on Zoll Life vest - became unresponsive at home, followed by shock therapy by life vest pt was shocked once by the life vest at home , and twice in ED developed Vtach Cardiac arrest -leading to CPR Hospital Course: 02/18/2017: admitted to ICU intubated/ started on Pressors, was placed on hypothermic protocol s/p right IJ central venous, right radial arterial line Developed pneumothorax and s/p right chest tube placement 02/19/17: Discontinued on Hypothermia protocol MRI of brain 02/21/17 Findings concerning for a punctate focus of ischemia at the junction of the right inferior jeannie and medulla. This may represent a small lacunar infarct versus a punctate embolic infarct. No evidence of anoxic brain injury. 02/25/17: chest tube discontinued 02/26/17: extubated 03/05/17: BiV pacemaker placed S/P VTACH Cardiac arrest Acute respiratory Failure S/P Extubation S/P Hypothermia Protocol Several rib fractures due to cardiopulmonary resuscitation with a pneumothorax S /P chest tube placement and removal CHF: systolic and diastolic H/O Ischemic cardiomyopathy EF 25-30% LBBB with prolonged QRS S/P biventricular pacemaker defibrillator implantation on 03/05/17 by S/P IV lasix and albumin On Torsemide and spironolactone Monitor electrolytes Appreciate Cardiology Input 2 step: Did not qualify for Oxygen Ventricular tachycardia and New P.atrial fibrillation after cardiac ventricular tachycardia arrest Continue amiodarone, Metoprolol for rate control On Eliquis for anticoagulation Appreciate Cardiology Input Abnormal Swallow Eval: Aspiration precautions Speech and swallow eval completed Hoarseness of throat and dysphagia s/p extubation: Needs follow up with ENT as outpatient ROBERTO on CKD III: Resolved Cr at baseline Losartan on hold secondary to relative hypotension DM II: HbA1c 6.9 Continue metformin, ISS GERD/Hiatal Hernia continue PPI DVT Px: On Eliquis Disposition: Follow up appointments: Plan to discharge home with home PT once Pacemaker check done today Follow up with Dr.Dominic White for Primary Care on 03/14/17 at 12:45pm Follow up with JUAN C Villanueva, [facility] on 03/28/2017 at 8: 15am Follow up with Dr. Briggs,Cardiology on Mar 19, 2017 at 2:45pm and also on at 3:00 PM Total time spent on discharge = 33 minutes This includes examination of the patient, discharge planning, medication reconciliation, and communication with other providers. Discharge Instructions Discharge Instructions Date of Service Mar 12, 2017. Admission Reason for Admission: Cardiac Arrest Discharge Discharge Diagnosis / Problem: Cardiac arrest Discharge Goals Goal(s): Decrease discomfort, Improve function Activity Recommendations Activity Limitations: per Instructions/Follow-up section Lifting Limitations: gradually increase as tolerated Exercise/Sports Limitations: gradually increase as tolerated . Instructions / Follow-Up Instructions / Follow-Up Follow up with Dr.Dominic White for Primary Care on 03/14/17 at 12:45pm Follow up with JUAN C Villanueva, [facility] on 03/28/2017 at 8: 15am Follow up with Dr. Briggs,Cardiology on Mar 19, 2017 at 2:45pm and also on at 3:00 PM Seek immediate medical attention if your symptoms reoccur or worsen Current Hospital Diet Patient's current hospital diet: AHA Diet (Heart Healthy), Diabetes Type 2 Diet Discharge Diet Recommended Diet: AHA Diet (Heart Healthy), Diabetes Type 2 Diet Procedures Procedures Performed: BiVentricular defibrillator with the LV pacing lead in the His bundle position, peripheral venogram Pending Studies Studies pending at discharge: no Laboratory Results Hemoglobin A1c Test 02/18/17 04:07 Range/Units Estimated Average Glucose 151 mg/dl Hemoglobin A1c 6.9 H 4.5-5.6 % Medical Emergencies . Who to Call and When: Medical Emergencies: If at any time you feel your situation is an emergency, please call 911 immediately. . Non-Emergent Contact Non-Emergency issues call your: Primary Care Provider, Callisthenics Instructor Call Non-Emergent contact if: you have a fever, your pain is not controlled, your pain is worsening, your pain is unusual for you, your pain is concerning you, you have any medication questions Seek immediate medical attention if your symptoms reoccur or worsen . . "Provider Documentation" section prepared by Chalo Galvez. . VTE Core Measure Inpt VTE Proph given/why not?: Other Anticoagulation <Electronically signed by Chalo Galvez MD> Signed: 03/12/17 1216 Signed: The status of this report is Signed * If report status is Draft, the document has not been finalized by the responsible provider.
[2017-03-12 13:47] VITALS: BP 90/46; PULSE 76; TEMP 36.6; O2SAT 96
--- NOTE | 2017-03-12 14:32 | OPERATIVE REPORT ---
DATE OF OPERATION: 03/05/2017 PREOPERATIVE DIAGNOSES: Status post cardiac arrest, ischemic cardiomyopathy, ejection fraction 25%-30%, left bundle-branch block, and chronic systolic heart failure, [place] Heart Association class 3. PROCEDURE: Biventricular rate responsive implantable cardiac defibrillator (the LV lead is in the His bundle region), under fluoroscopic guidance along with peripheral venogram. SURGEON: Dr. Mery Blanc. PICKER BOX OPERATOR: None. ANESTHESIA: Monitored anesthetic care administered via anesthesiology. A total of 2 mg of Versed and 200 mcg of fentanyl and 210 mg of propofol along with 25 mg of ketamine. ANTIBIOTICS: Two grams of Ancef. IV FLUIDS: 250 mL IV CONTRAST: 35 mL ESTIMATED BLOOD LOSS: 50 mL COMPLICATION: Coronary sinus dissection and perforation. The patient remains stable, no intervention necessary. CONDITION: Stable. URINE OUTPUT: Not applicable. SPECIMENS: None. FINDINGS: See below. DRAINS: None. INDICATIONS: This is a 76-year-old gentleman with a past medical history for coronary artery disease, hypertension, hyperlipidemia, peripheral vascular disease, diabetes, COPD, obstructive sleep apnea. He was found to have coronary artery disease with a large inferolateral scar on the nuclear stress test in December 2016 and he has a baseline left bundle-branch block and chronic systolic heart failure, [place] Heart Association class 3. He was sent home on a LifeVest and on 02/17/2017, he suffered a cardiac arrest where the LifeVest did shock him and save him. His hospital stay was prolonged with survival of the cardiac arrest, possibly pneumonia as well as a pontine stroke, but he has improved from all of that and so was recommended a biventricular defibrillator prior to hospital discharge. CONSENT: Consent was obtained prior to the patient going into the electrophysiology lab. The patient was informed of risks, benefits, and alternatives to procedure. Risks include but not limited to sudden cardiac , cardiac arrhythmias, cerebrovascular accident, myocardial infarction, injury to the blood vessels, chamber of the heart, lungs, bleeding and infection. The patient understood these risks and agreed to the procedure as planned. Informed consent was obtained. DESCRIPTION OF THE PROCEDURE: The patient was brought into the electrophysiology lab in a fasting state. He was connected to continuous cardiac monitoring. A timeout was performed to ensure patient's identity and procedure correctly. The patient was prepped and draped over the left infraclavicular space in normal surgical standard fashion. Monitored anesthetic care was given throughout the procedure for patient's comfort level via anesthesiology. [place] precautions were maintained throughout the procedure. The patient received prophylactic antibiotics prior to incision. 10 mL of 1% lidocaine, bupivacaine mixture were given in the left deltopectoral groove. Incision was made in the left deltopectoral groove. Blunt dissection was performed down to identify the cephalic vein. The cephalic vein was isolated using 0 silk suture. Then a peripheral venogram using 10 mL of contrast diluted in 10 mL of saline were used to identify the axillary vein and axillary venous access was obtained through a needlestick. Then I went back to the cephalic vein and I nicked it with an 11 blade and a guidewire was inserted without any resistance. An 8-Burmese sheath was inserted over the guidewire without any resistance. The dilator was removed and a second guidewire was inserted through the 8-Burmese sheath. The sheath was removed and a 9.5-Burmese sheath was inserted over 1 guidewire without any resistance. The guidewire and dilator were removed. Right ventricular defibrillator was then advanced into the right ventricle and positioned into the right ventricular apex under fluoroscopic guidance. There was adequate pacing and sensing thresholds and no diaphragmatic stimulation with high output pacing. The 9.5-Burmese sheath was peeled away and the lead was fixated to the pectoralis muscle using 0 silk suture. The 8-Burmese sheath was then advanced over the retained guidewire through the cephalic vein without any resistance. The guidewire and dilator were removed and a right atrial pacing lead was advanced into the right atrium and positioned into the right atrial appendage under fluoroscopic guidance. There was adequate pacing and sensing thresholds and no diaphragmatic stimulation with high output pacing. The 8-Burmese sheath was peeled away and the lead was fixated to the pectoralis muscle using 0 silk suture. We then set up to do the left ventricle lead. A 9.5-Burmese sheath was inserted over the guidewire that was placed through the axillary vein without any resistance. The guidewire and dilator removed and initially an MPX Medtronic coronary sinus sheath was advanced into the right atrium over the guidewire. The guidewire and dilator removed and a Decapolar coronary sinus. EP catheter was advanced to cannulate the coronary sinus. There was no struggle and everything glided nicely into the coronary sinus. However, when I took out the catheter and put a balloon through the coronary sinus sheath, we found that there was a coronary sinus dissection, so we aborted the coronary sinus position of the lead and set up to do His position of LV pacing lead. We used Medtronic His sheath placed over the guidewire through our 9.5-Burmese sheath and then, we had the Medtronic 4 Burmese His lead pacing lead, advanced into the heart and then I did unipolar mapping for the His bundle when we found that we had a decent His injury, not too much RV or RA. We advanced the lead out and screwed it into the heart. We then slowly pulled back the sheath a little and we tested and had adequate pacing and sensing thresholds for His bundle capture. We then split the His sheath under fluoroscopic guidance, followed then by the 9.5-Burmese sheath. The lead was then fixated to the pectoralis muscle using 0 silk suture. An additional 10 mL of 1% lidocaine, bupivacaine mixture were given within the pectoralis fascia over the pectoralis muscle. Using blunt dissection, a defibrillator pocket was created. The pocket was flushed with copious amounts of bacitracin saline wash and inspected for hemostasis. The defibrillator was then attached to the leads making sure that the pins are in an appropriate position, passed the set screws and the set screws were all tightened. The defibrillator was then placed in the pocket, making sure that the leads were lying flat beneath the device. The pocket was then closed in a 3-layer fashion using a 2-0 Vicryl interrupted suture followed by a 3-0 Vicryl interrupted suture followed by a 4-0 Monocryl running stitch and Dermabond was applied followed by a pressure dressing. EQUIPMENT: 1. The defibrillator is a [employer] EN[employer]MENT[employer] TECHNICAL OFFICER-D SureScan [id number], serial number [id number]. 2. The right atrial lead Medtronic 5076-52 cm, serial number [id number]. 3. The right ventricular lead Medtronic 6935M-62 cm, serial number [id number]. 4. The left ventricular/His bundle lead is a Medtronic 3830-69 cm, serial number [id number]. INTRAOPERATIVE TESTIN. Right atrial lead: P-wave 3.7 millivolts, impedance 543 ohms, threshold 0.3 volts at 0.4 milliamps. 2. Right ventricular lead: R-wave 9.6 millivolts, impedance 571 ohms, threshold 0.5 volts at 0.7 milliamps. 3. His bundle/left ventricular lead on unipolar: Impedance 494. Selected His capture was 3.9 volts at 1 millisecond. FINAL MEASUREMENTS THROUGH THE DEVICE: 1. Right atrial lead: P-wave 1.9 millivolts, impedance 513 ohms, threshold 0.5 volts at 0.4 milliseconds. 2. Right ventricular lead: R-wave 10.5 millivolts, impedance 456 ohms, threshold 0.5 volts at 0.4 milliseconds. 3. The LV/His pacing lead programmed LV tip to RV coil 551 ohms with His selected capture at 4.25 volts at 1 millisecond. FINAL PARAMETERS: 1. DDD 60/120. Right ventricular and right atrial amplitude is 3.5 volts, pulse width 0.4 milliseconds, sensitivity 0.3 millivolts. Left ventricular/His bundle pacing lead, amplitude is 6 volts and pulse width 1.0 milliseconds. 2. DDD 60/120. VF zone 200 with 30/40 detection intervals and a VT zone of 158 beats per minute with 16 detection intervals and the VT monitor zone at 140 beats per minute with 32 detection intervals. IMPRESSION: Successful implantation of a biventricular implantable cardiac defibrillator where the left ventricular pacing lead is in the His bundle region under fluoroscopic guidance along with peripheral venogram. PLAN: Monitor the patient, 12-lead ECG, chest x-ray. He is not allowed to lift the left elbow over the left shoulder for 1 month. He is not allowed to lift more than 10 pounds with the left arm for 2 weeks. He can shower in a day. I would hold his anticoagulation of Eliquis for at least 2 weeks due to the coronary sinus perforation. We will defer to general cardiology for any increase in his beta jeffry and titration of his diuretics. He will have a wound check in 1 week's time in [facility]. I attest to the content of the Intraoperative Record and any orders documented therein. Any exception s are noted below.
== END 2017-03-12 16:06 | disposition home health service (06) | DRG 226 ==
LOC: EDBD 00:36 → C.EDB 00:38 → C.MSICU 02:38 → ENRESERV 03:52 → C.MSICU 04:30 → ENRESERV 02-27 20:58 → C.2E 02-27 21:34
PROVIDERS: ADMIT Internal Medicine; ATTEND Internal Medicine
PROC: 5A02115 Assistance with Cardiac Output using Pulsatile Compression, Intermittent (ICD-10-PCS; 2017-02-17)
PROC: 0BH18EZ Insertion of Endotracheal Airway into Trachea, Via Natural or Artificial Opening Endoscopic (ICD-10-PCS; 2017-02-17)
PROC: 5A1955Z Respiratory Ventilation, Greater than 96 Consecutive Hours (ICD-10-PCS; 2017-02-17)
PROC: 0B9N30Z Drainage of Right Pleura with Drainage Device, Percutaneous Approach (ICD-10-PCS; 2017-02-17)
PROC: 02HV33Z Insertion of Infusion Device into Superior Vena Cava, Percutaneous Approach (ICD-10-PCS; 2017-02-17)
PROC: 03HB33Z Insertion of Infusion Device into Right Radial Artery, Percutaneous Approach (ICD-10-PCS; 2017-02-17)
PROC: 0B9N30Z Drainage of Right Pleura with Drainage Device, Percutaneous Approach (ICD-10-PCS; 2017-02-21)
PROC: 0BPQX0Z Removal of Drainage Device from Pleura, External Approach (ICD-10-PCS; 2017-02-21)
PROC: 0BB68ZX Excision of Right Lower Lobe Bronchus, Via Natural or Artificial Opening Endoscopic, Diagnostic (ICD-10-PCS; 2017-02-22)
PROC: 0JH608Z Insertion of Defibrillator Generator into Chest Subcutaneous Tissue and Fascia, Open Approach (ICD-10-PCS; principal; 2017-03-05 08:00)
PROC: 02HL3KZ Insertion of Defibrillator Lead into Left Ventricle, Percutaneous Approach (ICD-10-PCS; principal; 2017-03-05 08:00)
PROC: 02HK3KZ Insertion of Defibrillator Lead into Right Ventricle, Percutaneous Approach (ICD-10-PCS; principal; 2017-03-05 08:00)
PROC: 02H63KZ Insertion of Defibrillator Lead into Right Atrium, Percutaneous Approach (ICD-10-PCS; principal; 2017-03-05 08:00)
DX: I47.2 Ventricular tachycardia (principal); J96.00 Acute respiratory failure, unspecified whether with hypoxia or hypercapnia; R57.0 Cardiogenic shock; I63.8 Other cerebral infarction; S27.0XXA Traumatic pneumothorax, initial encounter; S22.43XA Multiple fractures of ribs, bilateral, initial encounter for closed fracture; N17.9 Acute kidney failure, unspecified; E87.2 Acidosis; I50.42 Chronic combined systolic (congestive) and diastolic (congestive) heart failure; I13.0 Hypertensive heart and chronic kidney disease with heart failure and stage 1 through stage 4 chronic kidney disease, or unspecified chronic kidney disease; I46.2 Cardiac arrest due to underlying cardiac condition; I48.0 Paroxysmal atrial fibrillation; R13.10 Dysphagia, unspecified; I44.7 Left bundle-branch block, unspecified; I25.2 Old myocardial infarction; I25.10 Atherosclerotic heart disease of native coronary artery without angina pectoris; E11.22 Type 2 diabetes mellitus with diabetic chronic kidney disease; J44.9 Chronic obstructive pulmonary disease, unspecified; I25.5 Ischemic cardiomyopathy; I73.9 Peripheral vascular disease, unspecified; E78.5 Hyperlipidemia, unspecified; G47.30 Sleep apnea, unspecified; N18.3 Chronic kidney disease, stage 3 (moderate); K21.9 Gastro-esophageal reflux disease without esophagitis; Z51.81 Encounter for therapeutic drug level monitoring; Z79.899 Other long term (current) drug therapy; Z79.82 Long term (current) use of aspirin; Z95.818 Presence of other cardiac implants and grafts; Z87.891 Personal history of nicotine dependence; Z82.49 Family history of ischemic heart disease and other diseases of the circulatory system; X58.XXXA Exposure to other specified factors, initial encounter; Y92.239 Unspecified place in hospital as the place of occurrence of the external cause; Y99.8 Other external cause status

== ENCOUNTER 2017-03-30 09:03 | Inpatient (IN) | payer OTHER ==
[~2017-03-30] VITALS: Ht 167.6 cm; Wt 79.6 kg
[~2017-03-30 09:03] MED LIST changes: +CRD200 PO; -CZR25 PO; -DMD20 PO; +ELQ25 PO; +GLC500 PO; +IPRASOL4 INH; -MCRK20 PO; +METO25TA3 PO; -METO25TA4 PO; +MRLP17 PO; -SILD1TAB11 PO; +SLWMEC PO; +SPIR25TA PO; -SPR25 PO; +TORS20TA2 PO
[2017-03-30] MEDS ORDERED: ASPIRIN 81 MG CHEW PO STA (09:18)
--- NOTE | 2017-03-30 09:21 | EMERGENCY ROOM VISIT NOTE ---
History Report prepared by Shai: Antoinette Andres Under the Supervision of: Dr. Naresh Eubanks M.D. First contact with patient: 09:14 Chief Complaint: CHEST PAIN Stated Complaint: CHEST PAIN, PAIN IN ARMS, GIVEN 1 NITRO History of Present Illness The patient is a 76 year old male who presents to the Emergency Room with complaints of sudden chest pain beginning at 0815 this morning. He describes the pain as an ache. The patient reports that he ate at 0745 and that his pain started a half hour later. The patient states that the pain also radiates down his shoulders. Per family, the patient took his nightly medications yesterday morning by accident, so his family gave him his morning medications around noon yesterday. Per family, the patient is on Eliquis, Metoprolol, and baby aspirin. Source of History: patient Onset: 0815 this morning Position: chest Quality: ache Timing: other (sudden ) Note: additional symptom: shoulder pain Review of Systems See HPI for pertinent positives & negatives. A total of 10 systems reviewed and were otherwise negative. Past Medical & Surgical Medical Problems: (1) Cardiac arrest (2) Carotid stenosis, asymptomatic (3) CHF (congestive heart failure) (4) DM type 2 (diabetes mellitus, type 2) (5) History of myocardial infarction (6) HTN (hypertension) (7) LBBB (left bundle branch block) (8) Peripheral vascular disease Surgical Problems: (1) H/O colonoscopy with polypectomy Family History FH: CAD (coronary artery disease) FATHER ( of [place] early 60's) Social History Smoking Status: Former Smoker Drug Use: none Marital Status: single Housing Status: lives alone Occupation Status: retired Current/Historical Medications Scheduled Amiodarone HCl (Amiodarone HCl), 200 MG PO BID Apixaban (Eliquis), 5 MG PO BID Aspirin (Aspirin Ec), 81 MG PO HS Docusate Sodium (Colace), 100 MG PO HS Enteral Nutrition Formula (Ensure Plus Vanilla), 1 CAN PO QAM Home O2 Therapy (Oxygen), 2 LITERS NA HS Ipratropium-Albuterol (Duoneb), 1 TREATMENT INH TID Magnesium Chloride (Slow-Mag Tab), 64 MG PO BID Metformin HCl (Metformin HCl), 500 MG PO BID Metoprolol Succinate (Toprol Xl), 25 MG PO QAM Nitroglycerin (Nitrostat), 0.4 MG UT PRN Rosuvastatin Calcium (Crestor), 5 MG PO QAM Silver-Carboxymethylcellulose (Aquacel Ag Extra 4" X 5"/), 1 DOSE TOP QPM Spironolactone (Aldactone), 25 MG PO QAM Torsemide (Demadex), 20 MG PO QAM [Optifoam], 1 DOSE TOP QPM Scheduled PRN Ipratropium-Albuterol (Combivent Respimat), 1 PUFFS INH QID PRN for Wheezing Omeprazole (Prilosec), 20 MG PO QAM PRN for Heartburn Polyethylene (Miralax), 17 GM PO DAILY PRN for Constipation Sucralfate (Carafate), 1 GM PO ACHS PRN for Heartburn Allergies Coded Allergies: Fentanyl (Verified Adverse Reaction, Intermediate, EXCESS SEDATION, ) Pt intubated on admission and required Fentanyl drip for sedation. Pt did not awaken enough for spontaneous breathing trial after Fentanly drip on hold almost 24 hours. Pt given Narcan in attempt to awaken for further spontaneous breathing trials from ventilator. Lisinopril (Verified Adverse Reaction, Intermediate, HIGH POTASSIUM LEVELS , 03/30/17) Atorvastatin (Verified Adverse Reaction, Mild, muscle weakness in legs, ) Physical Exam Vital Signs Date Time Temp Pulse Resp B/P (MAP) Pulse Ox O2 Delivery O2 Flow Rate FiO2 03/30/17 10:43 60 18 104/54 94 Room Air 03/30/17 09:38 95 Nasal Cannula 2.0 03/30/17 09:36 65 03/30/17 09:34 64 20 103/48 92 Room Air 03/30/17 09:13 94 Room Air 03/30/17 09:07 36.6 70 20 120/57 94 Room Air Physical Exam GENERAL: Patient is a healthy-appearing well-nourished male HEAD: Normocephalic atraumatic EYES: Ocular movements intact pupils equal and react to light OROPHARYNX mucous membranes are moist no exudates present no erythema or edema present NECK: Supple no nuchal rigidity CHEST: Good equal expansion LUNGS: Clear and equal to auscultation CARDIAC: Normal S1 and S2 ABDOMEN: Soft nontender no guarding BACK: No CVA tenderness EXTREMITIES: No pain upon palpation normal muscle strength in all groups no clubbing cyanosis or edema NEURO: Patient is following commands and answering questions appropriately. Alert and oriented x3 Cranial Nerves 2-12 grossly intact Medical Decision & Procedures ER Provider Diagnostic Interpretation: Radiology results as stated below per my review and radiologist interpretation: CHEST ONE VIEW PORTABLE HISTORY: 76 years-old Male CHEST PAIN acute atypical chest pain COMPARISON: Chest radiographs 03/06/2017 TECHNIQUE: Portable AP view of the chest FINDINGS: Cardiomediastinal and hilar silhouettes are within normal limits. Left subclavian pacer/AICD appears to be unchanged with leads appearing to be intact. Atherosclerosis of the aorta. There is no pneumothorax or large pleural effusion. Minimal chronic blunting of the left costophrenic angle. There is improved aeration of the lung bases with minimal subsegmental linear opacities of the left lung base suggesting atelectasis or scarring. Bones of the chest appear grossly intact. IMPRESSION: No acute process. The above report was generated using voice recognition software. It may contain grammatical, syntax or spelling errors. Electronically signed by: Wellington Mercado M.D. 03/30/2017 9:32 AM Dictated Date/Time: 03/30/2017 9:30 AM Laboratory Results Test 03/30/17 09:07 Total Bilirubin 0.4 mg/dl (0.2-1) Direct Bilirubin 0.1 mg/dl (0-0.2) Aspartate Amino Transf (AST/SGOT) 17 U/L (15-37) Alanine Aminotransferase (ALT/SGPT) 27 U/L (12-78) Alkaline Phosphatase 119 U/L (45-117) Total Creatine Kinase 23 U/L (39-308) Creatine Kinase MB 1.7 ng/ml (0.5-3.6) Creatine Kinase MB Ratio 7.4 (0-3.0) Total Protein 7.2 gm/dl (6.4-8.2) Albumin 3.5 gm/dl (3.4-5.0) Lipase 77 U/L (73-393) Labs reviewed by ED physician. Medications Administered Medications (Trade) Dose Ordered Sig/Shakira Route Start Time Stop Time Status Last Admin Dose Admin Aspirin (Aspirin Chew) 324 mg NOW STAT PO 03/30/17 09:18 03/30/17 09:20 DC 03/30/17 09:34 324 MG ECG Indication: chest pain Rate (beats per minute): 73 Rhythm: other (paced rhythm) Findings: no acute ischemic change, no ectopy Change: Patient's Electrocardiogram interpreted by me. ED Course 914: Past medical records reviewed. The patient was evaluated in room A2. A complete history and physical examination was performed. 917: Ordered Aspirin 324 mg PO. 101: Upon reexamination the patient is resting. I discussed results and treatment plan with the patient. He verbalizes agreement and understanding. I spoke with Dr. Norris from the [facility] Hospitalist Service. The patient will be evaluated for further management. Medical Decision Differential diagnosis: Etiologies such as cardiac ischemia, aortic dissection, pulmonary embolism, pneumonia, pneumothorax, musculoskeletal, infections, pericarditis, myocarditis , esophageal rupture, gastrointestinal, as well as others were entertained. This is a 76-year-old male with a past medical history of cardiac arrest last month. He presents emergency department complaining of chest pain. Chest pain was relieved by nitroglycerin. He received 3 and 24 mg of aspirin here in the emergency department. His troponin I will note is not 0. Based on his past medical history as well as the story he was admitted to the medicine service for observation. Patient family were in agreement with the treatment plan. Medication Reconcilliation Current Medication List: was personally reviewed by me Blood Pressure Screening Patient's blood pressure: Low blood pressure will be monitored by hospitalist Consults Time Called: [phone] Consulting Physician: Dr. Norris-[facility] Returned Call: [phone] I discussed the patient's case with Dr. Norris, He has agreed to evaluate the patient for further management and care. Impression Primary Impression: Chest pain Scribe Attestation The scribe's documentation has been prepared under my direction and personally reviewed by me in its entirety. I confirm that the note above accurately reflects all work, treatment, procedures, and medical decision making performed by me. Departure Information Dispostion Being Evaluated By Hospitalist Referrals Neftali Jamil M.D.(KAILEE) (PCP) Patient Instructions My [facility] Problem Qualifiers Primary Impression: Chest pain Chest pain type: unspecified Qualified Codes: R07.9 - Chest pain, unspecified
--- NOTE | 2017-03-30 09:33 | DIAGNOSTIC IMAGING REPORT ---
CHEST ONE VIEW PORTABLE HISTORY: 76 years-old Male CHEST PAIN acute atypical chest pain COMPARISON: Chest radiographs 03/06/2017 TECHNIQUE: Portable AP view of the chest FINDINGS: Cardiomediastinal and hilar silhouettes are within normal limits. Left subclavian pacer/AICD appears to be unchanged with leads appearing to be intact. Atherosclerosis of the aorta. There is no pneumothorax or large pleural effusion. Minimal chronic blunting of the left costophrenic angle. There is improved aeration of the lung bases with minimal subsegmental linear opacities of the left lung base suggesting atelectasis or scarring. Bones of the chest appear grossly intact. IMPRESSION: No acute process. The above report was generated using voice recognition software. It may contain grammatical, syntax or spelling errors. Electronically signed by: Wellington Mercado M.D. 03/30/2017 9:32 AM Dictated Date/Time: 03/30/2017 9:30 AM
[2017-03-30 09:38] LABS: BASO % 0.2 %; BASO ABS # 0.01 K/uL (0-0.2); EOS % 3.4 %; EOS ABS # 0.19 K/uL (0-0.5); HEMATOCRIT 38.3 % (42-52); HEMOGLOBIN 12.8 g/dL (14.0-18.0); IG# 0.01 K/uL (0.00-0.02); LYMPH % 44.1 %; LYMPH ABS # 2.49 K/uL (1.2-3.4); MEAN CELL VOLUME 99.2 fL (80-100); MEAN CORPUSCULAR HEMOGLOBIN 33.2 pg (25-34); MEAN CORPUSCULAR HGB CONC 33.4 g/dl (32-36); MEAN PLATELET VOLUME 10.4 fL (7.4-10.4); MONO % 4.8 %; MONO ABS # 0.27 K/uL (0.11-0.59); NEUT % 47.3 %; NEUT ABS # 2.68 K/uL (1.4-6.5); PLATELET COUNT 132 K/uL (130-400); RED CELL DISTRIBUTION WIDTH CV 17.6 % (11.5-14.5); RED CELL DISTRIBUTION WIDTH SD 63.3 fL (36.4-46.3); WHITE BLOOD COUNT 5.65 K/uL (4.8-10.8)
[2017-03-30 09:51] LABS: ALBUMIN 3.5 gm/dl (3.4-5.0); ALT/SGPT 27 U/L (12-78); BLOOD UREA NITROGEN 34 mg/dl (7-18); CALCIUM 9.5 mg/dl (8.5-10.1); CARBON DIOXIDE 30 mmol/L (21-32); CREATININE 1.43 mg/dl (0.60-1.40); GLUCOSE 224 mg/dl (70-99); LIPASE 77 U/L (73-393); POTASSIUM 4.1 mmol/L (3.5-5.1); SODIUM 135 mmol/L (136-145)
[2017-03-30 09:56] LABS: ALKALINE PHOSPHATASE 119 U/L (45-117); AST/SGOT 17 U/L (15-37); CKMB 1.7 ng/ml (0.5-3.6); TOTAL PROTEIN 7.2 gm/dl (6.4-8.2)
[2017-03-30] MEDS ORDERED: OXGN (10:12)
[2017-03-30] MEDS ORDERED: NTRGSL/4 UT (10:12)
[2017-03-30] MEDS ORDERED: DOCU-94 PO (10:12)
[2017-03-30] MEDS ORDERED: [UNRECOGNIZED DRUG - OTHER] TOP (10:15)
[2017-03-30] MEDS ORDERED: SILV1PAD9 TOP (10:15)
[2017-03-30] MEDS ORDERED: NUTR-977 PO (10:16)
[2017-03-30] MEDS ORDERED: ACETAMINOPHEN 325 MG TAB PO PRN (11:30)
[2017-03-30] MEDS ORDERED: ONDANSETRON INJ 2 MG/ML 2 ML VIAL IV PRN (11:30)
[2017-03-30] MEDS ORDERED: NITROGLYCERIN 0.4 MG SL PER TAB CHARGE SL PRN (11:30)
[2017-03-30 11:42] VITALS: BP 94/58; PULSE 61; TEMP 36.1; O2SAT 97; Ht 167.6 cm; Wt 79.6 kg
[2017-03-30] MEDS ORDERED: POLYETHYLENE (MIRALAX) 17 GM PACK PO PRN (11:45)
[2017-03-30] MEDS ORDERED: GLUCOSE 40% GEL 15 GM TUBE PO PRN (11:45)
[2017-03-30] MEDS ORDERED: GLUCAGON FOR INJ 1 MG VIAL SQ PRN (11:45)
[2017-03-30] MEDS ORDERED: GLUCOSE 10 TABS/TUBE PO PRN (11:45)
[2017-03-30] MEDS ORDERED: DEXTROSE 50% 50 ML SYR IV PRN (11:45)
[2017-03-30] MEDS ORDERED: ALBUT/IPRATROP 3MG/0.5MG NEB 3 ML VIAL INH PRN (12:00)
[2017-03-30] MEDS ORDERED: PROMETHAZINE HCL INJ 12.5 MG in SODIUM CHLORIDE 0.9% 50ML 50 ML IV PRN (12:00)
--- NOTE | 2017-03-30 12:25 | History and Physical ---
History & Physical Date & Time of Service: Mar 30, 2017 at 11:52 Chief Complaint: Chest Pain, Pain In Arms, Given 1 Nitro Primary Care Physician: Darshan White D.O. History of Present Illness Source: patient, family Patient is a 76 yr male with PMH of CAD, PVD, DM II, CHF with EF:25-30%, HLP, LBBB, COPD, HTN, CKD III, Pacemaker, P.afib on chronic anticoagulation, Oxygen dependency:2L at bedtime and other problems who was recently discharged from [facility] after being treated for Cardiac arrest from [facility], respiratory failure requiring intubation, and completed hypothermia protocol during prior admission and had pacemaker placement presents with history of sudden onset of chest pain which started this morning while at rest. Patient states chest pain is retrosternal, aching type, 8/10 intensity, radiated to both shoulders, which improved with NTG which he took after chest pain started. Chest is associated with SOB and diaphoresis. Currently in ED patient received Aspirin and is chest pain free. Patient has been having cough with expectoration since few days and recently completed 10 day course of antibiotics prescribed by PCP. Family states he could be aspirating at times and has been feeling tired since last 3 days. Also reports being constipated and last BM was 2 days ago. Denies any history of palpitations, orthopnea, PND, dizziness, fever, chills, headache, change in vision, nausea, vomiting, abdominal pain. Past Medical/Surgical History Medical Problems: (1) Carotid stenosis, asymptomatic Status: Chronic (2) CHF (congestive heart failure) Permanent Comment: echo 12/04/2016- EF 45%, grade II diastolic dysfunction Status: Chronic (3) DM type 2 (diabetes mellitus, type 2) Status: Chronic (4) History of myocardial infarction Permanent Comment: silent AL in Status: Chronic (5) HTN (hypertension) Status: Chronic (6) LBBB (left bundle branch block) Status: Chronic (7) Peripheral vascular disease Status: Chronic Surgical Problems: (1) H/O colonoscopy with polypectomy Status: Chronic Family History FH: CAD (coronary artery disease) FATHER ( of AL early 60's) Reviewed Social History Smoking Status: Former Smoker Alcohol Use: none Drug Use: none Marital Status: single Occupational Status: retired Multi-Drug Resistant Organisms History of MDRO: No Allergies Coded Allergies: Fentanyl (Verified Adverse Reaction, Intermediate, EXCESS SEDATION, ) Pt intubated on admission and required Fentanyl drip for sedation. Pt did not awaken enough for spontaneous breathing trial after Fentanly drip on hold almost 24 hours. Pt given Narcan in attempt to awaken for further spontaneous breathing trials from ventilator. Lisinopril (Verified Adverse Reaction, Intermediate, HIGH POTASSIUM LEVELS , 03/30/17) Atorvastatin (Verified Adverse Reaction, Mild, muscle weakness in legs, ) Home Medications Scheduled Amiodarone HCl (Amiodarone HCl), 200 MG PO BID Apixaban (Eliquis), 5 MG PO BID Aspirin (Aspirin Ec), 81 MG PO HS Docusate Sodium (Colace), 100 MG PO HS Enteral Nutrition Formula (Ensure Plus Vanilla), 1 CAN PO QAM Home O2 Therapy (Oxygen), 2 LITERS NA HS Ipratropium-Albuterol (Duoneb), 1 TREATMENT INH TID Magnesium Chloride (Slow-Mag Tab), 64 MG PO BID Metformin HCl (Metformin HCl), 500 MG PO BID Metoprolol Succinate (Toprol Xl), 25 MG PO QAM Nitroglycerin (Nitrostat), 0.4 MG UT PRN Rosuvastatin Calcium (Crestor), 5 MG PO QAM Silver-Carboxymethylcellulose (Aquacel Ag Extra 4" X 5"/), 1 DOSE TOP QPM Spironolactone (Aldactone), 25 MG PO QAM Torsemide (Demadex), 20 MG PO QAM [Optifoam], 1 DOSE TOP QPM Scheduled PRN Ipratropium-Albuterol (Combivent Respimat), 1 PUFFS INH QID PRN for Wheezing Omeprazole (Prilosec), 20 MG PO QAM PRN for Heartburn Polyethylene (Miralax), 17 GM PO DAILY PRN for Constipation Sucralfate (Carafate), 1 GM PO ACHS PRN for Heartburn Review of Systems See HPI for pertinent positives & negatives. A total of 10 systems reviewed and were otherwise negative. Physical Exam Vital Signs Date Time Temp Pulse Resp B/P (MAP) Pulse Ox O2 Delivery O2 Flow Rate FiO2 03/30/17 10:43 60 18 104/54 94 Room Air 03/30/17 09:38 95 Nasal Cannula 2.0 1/21/18 09:36 65 03/30/17 09:34 64 20 103/48 92 Room Air 03/30/17 09:13 94 Room Air 03/30/17 09:07 36.6 70 20 120/57 94 Room Air General Appearance: WD/WN, no apparent distress Head: normocephalic, atraumatic Eyes: normal inspection, PERRL, EOMI, sclerae normal ENT: normal ENT inspection, hearing grossly normal Neck: supple, trachea midline Respiratory/Chest: chest non-tender, no accessory muscle use, + decreased breath sounds, + crackles (at bases) Cardiovascular: regular rate, rhythm, no murmur, + pertinent finding (Trace pedal edema) Abdomen/GI: normal bowel sounds, non tender, soft Back: normal inspection Extremities/Musculoskelatal: normal inspection, + pedal edema 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, no motor/sensory deficits, alert, normal mood/affect, oriented x 3, + pertinent finding (Hoarse voice) Skin: normal color, warm/dry Diagnostics Laboratory Results Results Past 24 Hours Test 03/30/17 09:07 Range/Units White Blood Count 5.65 4.8-10.8 K/uL Red Blood Count 3.86 4.7-6.1 M/uL Hemoglobin 12.8 14.0-18.0 g/dL Hematocrit 38.3 42-52 % Mean Corpuscular Volume 99.2 80-100 fL Mean Corpuscular Hemoglobin 33.2 25-34 pg Mean Corpuscular Hemoglobin Concent 33.4 32-36 g/dl Platelet Count 132 130-400 K/uL Mean Platelet Volume 10.4 7.4-10.4 fL Neutrophils (%) (Auto) 47.3 % Lymphocytes (%) (Auto) 44.1 % Monocytes (%) (Auto) 4.8 % Eosinophils (%) (Auto) 3.4 % Basophils (%) (Auto) 0.2 % Neutrophils # (Auto) 2.68 1.4-6.5 K/uL Lymphocytes # (Auto) 2.49 1.2-3.4 K/uL Monocytes # (Auto) 0.27 0.11-0.59 K/uL Eosinophils # (Auto) 0.19 0-0.5 K/uL Basophils # (Auto) 0.01 0-0.2 K/uL RDW Standard Deviation 63.3 36.4-46.3 fL RDW Coefficient of Variation 17.6 11.5-14.5 % Immature Granulocyte % (Auto) 0.2 % Immature Granulocyte # (Auto) 0.01 0.00-0.02 K/uL Sodium Level 135 136-145 mmol/L Potassium Level 4.1 3.5-5.1 mmol/L Chloride Level 96 98-107 mmol/L Carbon Dioxide Level 30 21-32 mmol/L Anion Gap 8.0 3-11 mmol/L Blood Urea Nitrogen 34 7-18 mg/dl Creatinine 1.43 0.60-1.40 mg/dl Estimated GFR () 55.5 Estimated GFR (Non- 47.9 BUN/Creatinine Ratio 24.1 10-20 Random Glucose 224 70-99 mg/dl Calcium Level 9.5 8.5-10.1 mg/dl Total Bilirubin 0.4 0.2-1 mg/dl Direct Bilirubin 0.1 0-0.2 mg/dl Aspartate Amino Transf (AST/SGOT) 17 15-37 U/L Alanine Aminotransferase (ALT/SGPT) 27 12-78 U/L Alkaline Phosphatase 119 45-117 U/L Total Creatine Kinase 23 39-308 U/L Creatine Kinase MB 1.7 0.5-3.6 ng/ml Creatine Kinase MB Ratio 7.4 0-3.0 Troponin I 0.045 0-0.045 ng/ml Total Protein 7.2 6.4-8.2 gm/dl Albumin 3.5 3.4-5.0 gm/dl Lipase 77 73-393 U/L Diagnostic Radiology CXR: No active Process EKG EKG: Atrial sensed Ventricular paced rhythm, QTC:568 Impression Assessment and Plan Chest Pain: R/O ACS Risk factors: H/O CAD, HTN, HLP, Former Tobacco use disorder, DM II Initial troponin:Negative EKG shows:No acute signs of ischemia CXR: Unremarkable Last ECHO: EF:25-30% Trend serial cardiac enzymes, repeat EKG, fasting lipid panel in AM Continue Aspirin, statins, BB Oxygen PRN Cardiology consult ROBERTO ON CKD III: Hold diuretics as clinically dry Hold metformin No IV fluids for now monitor renal function Prolonged QTC: On Amiodarone monitor QTC Bronchitis: Will start on Augmentin given aspiration risk CXR: no signs of consolidation Chronic systolic and diastolic CHF: H/O Ischemic cardiomyopathy EF 25-30% LBBB with prolonged QRS S/P biventricular pacemaker defibrillator implantation on 03/05/17 by Hold diuretics for today as clinically dehydrated Was on Torsemide and spironolactone Monitor electrolytes Resumes diuretics as able H/O Ventricular tachycardia and P.atrial fibrillation Continue amiodarone, Metoprolol for rate control On Eliquis for anticoagulation High risk for aspiration: Swallow Eval Aspiration precautions Hoarseness of throat since last admission: follow up with ENT as outpatient DM II: HbA1c 6.9 on 02/18/17 Continue ISS, lantus Hold Metformin GERD/Hiatal Hernia continue PPI DVT Px: On Eliquis Code Status: Full Code Disposition: Monitor in tele VTE Prophylaxis VTE Risk Assessment Done? Y/N: Yes Risk Level: Moderate
[2017-03-30] MEDS ORDERED: IV FLUIDS COMPLETED PRN (14:30)
[2017-03-30 14:54] VITALS: BP 102/48; PULSE 65; TEMP 36.6; O2SAT 94
[2017-03-30] MEDS ORDERED: SUCRALFATE 1 GM/10 ML UDC PO PRN (16:30)
[2017-03-30] MEDS: AMOXICILLIN/CLAVULANATE TAB 500 MG TAB PO SCH (17:17)
[2017-03-30] MEDS: INSULIN ASPART 100 UNITS/ML 3 ML PEN SC SCH ×2 (17:18→21:00)
[2017-03-30 18:46] VITALS: BP_SYST 90; BP_SYST 95; BP_DIAS 53; BP_DIAS 58; PULSE 63; TEMP 36.3; O2SAT 94
[2017-03-30] MEDS ORDERED: [UNRECOGNIZED DRUG - OTHER] TOP SCH (21:00)
[2017-03-30 21:32] LABS: PTT PATIENT 28.7 SECONDS (21.0-31.0)
[2017-03-30] MEDS: APIXABAN 2.5 MG TAB PO SCH (21:41)
[2017-03-30] MEDS: DOCUSATE SODIUM 100 MG CAP PO SCH (21:41)
[2017-03-30] MEDS: ASPIRIN 81 MG ECTAB PO SCH (21:41)
[2017-03-30] MEDS: MAGNESIUM CHLORIDE 64MG DELAYED REL TAB PO SCH (21:43)
[2017-03-30] MEDS: INSULIN GLARGINE SOLOSTAR 100 UNITS/ML 3 ML PEN SC SCH (21:45)
[2017-03-30] MEDS: AMIODARONE 200 MG TAB PO SCH (21:50)
[2017-03-30 23:34] VITALS: BP 107/62; PULSE 79; TEMP 36.6; O2SAT 97
[2017-03-31 03:53] VITALS: BP 104/57; PULSE 59; TEMP 36.4; O2SAT 97
[2017-03-31 07:15] VITALS: BP 93/54; PULSE 62; TEMP 36.3; O2SAT 90
[2017-03-31 07:23] LABS: HEMATOCRIT 38.2 % (42-52); HEMOGLOBIN 12.4 g/dL (14.0-18.0); MEAN CORPUSCULAR HEMOGLOBIN 32.1 pg (25-34); MEAN CORPUSCULAR HGB CONC 32.5 g/dl (32-36); MEAN PLATELET VOLUME 10.2 fL (7.4-10.4); PLATELET COUNT 136 K/uL (130-400); RED CELL DISTRIBUTION WIDTH CV 17.8 % (11.5-14.5); RED CELL DISTRIBUTION WIDTH SD 64.3 fL (36.4-46.3); WHITE BLOOD COUNT 6.34 K/uL (4.8-10.8)
[2017-03-31] MEDS: MAGNESIUM CHLORIDE 64MG DELAYED REL TAB PO SCH ×2 (07:38→20:39)
[2017-03-31] MEDS: AMIODARONE 200 MG TAB PO SCH ×2 (07:41→20:38)
[2017-03-31] MEDS: ROSUVASTATIN CALCIUM 5 MG TAB PO SCH (07:41)
[2017-03-31] MEDS: APIXABAN 2.5 MG TAB PO SCH (07:42)
[2017-03-31] MEDS: AMOXICILLIN/CLAVULANATE TAB 500 MG TAB PO SCH ×2 (07:43→17:09)
[2017-03-31 07:52] LABS: CALCIUM 9.5 mg/dl (8.5-10.1); CREATININE 1.24 mg/dl (0.60-1.40); POTASSIUM 4.3 mmol/L (3.5-5.1)
[2017-03-31] MEDS: INSULIN ASPART 100 UNITS/ML 3 ML PEN SC SCH ×4 (08:16→20:19)
[2017-03-31] MEDS: METOPROLOL SUCC 25MG EXT REL TAB PO SCH (09:00)
[2017-03-31] MEDS ORDERED: PANTOprazole SOD 40 MG TAB PO PRN (09:00)
[2017-03-31] MEDS: HEPARIN 25,000 UNIT/500ML D5W 500 ML IV PRN (10:35)
--- NOTE | 2017-03-31 11:34 | CARDIOLOGY CONSULTATION ---
DATE OF CONSULTATION: 03/31/2017 CONSULTATION FOR: Jolly jesus. REASON FOR CONSULTATION: Chest pain and elevated troponins. HISTORY OF PRESENT ILLNESS: This patient is a 76-year-old who has had a complex past medical history. Sometime in , he sustained a myocardial infarction, at which time he was found to have an occluded right coronary artery. In December of last year, he presented with heart failure and a workup ensued that revealed an ischemic cardiomyopathy with an estimated left ventricular ejection fraction of 25%-30%. The patient underwent a nuclear stress test at that time that showed a large infarct of the inferior posterior myocardium and no active ischemia. He was discharged home with a LifeVest in anticipation of receiving an ICD after he was on appropriate guideline directed medicine for his cardiomyopathy. He then presented in February with a cardiac arrest. He received several shocks from his LifeVest and then had a prolonged CPR in the Emergency Department. He was admitted to the ICU and underwent an Arctic protocol. He had a prolonged intubation as well as a prolonged hospital stay. He had evidence of a left bundle branch block on his EKG. Prior to being discharged, he had a biventricular pacemaker defibrillator implanted by Dr. Blanc. He was started on amiodarone and Eliquis due to paroxysmal atrial fibrillation. Prior to discharge, he had a swallowing evaluation and was sent home on thickened liquids with a chronic hoarse voice due to prolonged intubation. Last evening, he had some chest discomfort, which he described as severe. He was given 1 sublingual nitroglycerin by his son with some improvement, but it did not completely resolve and he was brought to the Emergency Department. His cardiac markers have been elevated. He has no acute changes on his EKG, but he does have a left bundle branch block and a biventricular pacemaker. He has had additional chest pain while walking the hallways here in the hospital. He most likely has unstable angina or non-STEMI. He denies shortness of breath or dyspnea. He has had no orthopnea. He has had no therapies delivered by his device. ALLERGIES: LISINOPRIL. PAST MEDICAL HISTORY: As outlined in the history of chief complaint, the patient has had extensive cardiac history. In addition, he is a type 2 diabetic and does have peripheral vascular disease. SOCIAL HISTORY: He is a former smoker, currently lives with his family. FAMILY MEDICAL HISTORY: Noncontributory. REVIEW OF SYSTEMS: A 10-point review of systems is negative except for the history of chief complaint. PHYSICAL EXAMINATION: GENERAL: He is alert and oriented. No acute distress. VITAL SIGNS: Blood pressure is 100/60 and pulse is regular at 62. He is afebrile. HEENT: He is normocephalic. Pupils are equal and reactive to light. Extraocular muscles are intact bilaterally. NECK: The neck veins are flat. Carotids have good upstrokes bilaterally without bruits. Thyroid is nonpalpable. RESPIRATORY: Breath sounds equal bilaterally and clear to auscultation. CARDIOVASCULAR: Heart has a regular rhythm. Normal S1 and S2. No S3 or S4. No cardiac rubs or murmurs. GASTROINTESTINAL: Abdomen is soft and nontender without organomegaly. EXTREMITIES: The patient has some healing decubiti on his buttocks from his previous admission. NEUROLOGIC: Grossly intact. SKIN: Warm to touch. LYMPH NODES: Negative to palpation. LABORATORY DATA: Potassium is 4.3 and creatinine is 1.24. Troponin is elevated at 0.128. Hemoglobin is 12.4, WBC count is 6.34, and platelet count is 136,000. IMPRESSION: 1. Unstable angina and non-ST elevation myocardial infarction. 2. Ischemic cardiomyopathy with chronic systolic heart failure. 3. Cardiac arrest survivor. 4. Status post biventricular pacemaker ICD. 5. Paroxysmal atrial fibrillation. 6. Diabetes mellitus. RECOMMENDATIONS: I have recommended to the patient that he undergo a cardiac catheterization. He has not had a cardiac catheterization since his recent presentation last year and although, he had evidence of a previous infarct and no ischemia on a nuclear study, I believe that his recent presentation with elevated troponins puts him at great risk. I have explained the risks, benefits and intent to the cardiac catheterization to the patient including the potential for catheter-based intervention such as balloon angioplasty or intracoronary stenting. The patient's creatinine is stable. He will receive IV hydration starting tonight. I have taken him off of his Eliquis; however, he did get his morning dose, so we will start IV heparin this evening. His blood pressure is a little on the low side, so we can add additional medication such as nitro paste. We will continue his current medications and provide a sublingual nitroglycerin should he have additional chest pain. We will have further recommendations following the above.
[2017-03-31 12:02] VITALS: BP 109/58; PULSE 59; TEMP 36.6; O2SAT 95
[2017-03-31 15:29] VITALS: BP 111/62; PULSE 63; TEMP 36.4; O2SAT 96
--- NOTE | 2017-03-31 15:40 | Progress Note ---
Internal Med Progress Note Date of Service: Mar 31, 2017. Provider Documentation: SUBJECTIVE: Seen and examine at bedside Reports having 2 episodes of chest pain with exertion yesterday Doing well today Denies chest pain, nausea, dizziness, SOB No other complaints OBJECTIVE: Vital Signs-as noted below General Appearance: WD/WN, no apparent distress Head: normocephalic, atraumatic Eyes: normal inspection, PERRL, EOMI, sclerae normal ENT: normal ENT inspection, hearing grossly normal Neck: supple, trachea midline Respiratory/Chest: chest non-tender, no accessory muscle use,decreased breath sounds Cardiovascular: regular rate, rhythm, no murmur, Trace pedal edema Abdomen/GI: normal bowel sounds, non tender, soft Back: normal inspection Extremities/Musculoskelatal: normal inspection, + pedal edema 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 ASSESSMENT & PLAN: Unstable Angina/NSTEMI Risk factors: H/O CAD, HTN, HLP, Former Tobacco use disorder, DM II Troponin trending down EKG shows:No acute signs of ischemia CXR: Unremarkable Last ECHO: EF:25-30% Started on IV heparin Continue Aspirin, statins, BB Oxygen PRN Appreciate Cardiology Input Planned for cardiac Cath tomorrow NPO after midnight ROBERTO ON CKD III: Cr levels Improved Resume diuretics as able Hold metformin Gentle IV fluids monitor renal function Prolonged QTC: On Amiodarone monitor QTC Bronchitis: continue Augmentin Day # 2 given aspiration risk CXR: no signs of consolidation Chronic systolic and diastolic CHF: H/O Ischemic cardiomyopathy EF 25-30% LBBB with prolonged QRS S/P biventricular pacemaker defibrillator implantation on 03/05/17 by Hold diuretics for today as clinically dehydrated Was on Torsemide and spironolactone Monitor electrolytes Resumes diuretics as able H/O Ventricular tachycardia and P.atrial fibrillation Continue amiodarone, Metoprolol for rate control Eliquis on hold On IV heparin currently High risk for aspiration: Swallow Eval pending Aspiration precautions Hoarseness of throat since last admission: follow up with ENT as outpatient DM II: HbA1c 6.9 on 02/18/17 Continue ISS, lantus Hold Metformin GERD/Hiatal Hernia continue PPI DVT Px: Eliquis on hold On IV heparin Code Status: Full Code Disposition: Monitor in tele Vital Signs: Date Time Temp Pulse Resp B/P (MAP) Pulse Ox O2 Delivery O2 Flow Rate FiO2 03/31/17 12:02 36.6 59 20 109/58 (75) 95 Mask 2.0 03/31/17 12:00 Room Air 03/31/17 08:00 Room Air 03/31/17 07:15 36.3 62 20 93/54 (67) 90 Room Air 03/31/17 04:00 Oxymask 2.0 03/31/17 03:53 36.4 59 20 104/57 (73) 97 Oxymask 2.0 03/31/17 00:00 Oxymask 2.0 03/30/17 23:34 36.6 79 20 107/62 (77) 97 Oxymask 2.0 03/30/17 20:00 Room Air 03/30/17 18:46 36.3 63 20 95/58 (70) 94 Room Air 90/53 (65) 03/30/17 16:00 Room Air Lab Results: Results Past 24 Hours Test 03/30/17 16:28 03/30/17 20:04 03/30/17 20:44 03/31/17 07:04 Range/Units Bedside Glucose 125 130 70-99 mg/dl Activated Partial Thromboplast Time 28.7 21.0-31.0 SECONDS Partial Thromboplastin Ratio 1.1 Lactic Acid Level 1.2 0.4-2.0 mmol/L Magnesium Level 2.4 2.5 1.8-2.4 mg/dl Troponin I 0.128 0-0.045 ng/ml White Blood Count 6.34 4.8-10.8 K/uL Red Blood Count 3.86 4.7-6.1 M/uL Hemoglobin 12.4 14.0-18.0 g/dL Hematocrit 38.2 42-52 % Mean Corpuscular Volume 99.0 80-100 fL Mean Corpuscular Hemoglobin 32.1 25-34 pg Mean Corpuscular Hemoglobin Concent 32.5 32-36 g/dl RDW Standard Deviation 64.3 36.4-46.3 fL RDW Coefficient of Variation 17.8 11.5-14.5 % Platelet Count 136 130-400 K/uL Mean Platelet Volume 10.2 7.4-10.4 fL Sodium Level 137 136-145 mmol/L Potassium Level 4.3 3.5-5.1 mmol/L Chloride Level 99 98-107 mmol/L Carbon Dioxide Level 31 21-32 mmol/L Anion Gap 7.0 3-11 mmol/L Blood Urea Nitrogen 33 7-18 mg/dl Creatinine 1.24 0.60-1.40 mg/dl Est Creatinine Clear Calc Drug Dose 51.1 ml/min Estimated GFR () 66.0 Estimated GFR (Non- 56.9 BUN/Creatinine Ratio 26.5 10-20 Random Glucose 118 70-99 mg/dl Calcium Level 9.5 8.5-10.1 mg/dl Triglycerides Level 214 0-150 mg/dl Cholesterol Level 158 0-200 mg/dl HDL Cholesterol 40 mg/dl LDL Cholesterol, Calculated 75 mg/dl VLDL Cholesterol, Calculated 43 mg/dl Cholesterol/HDL Ratio 4.0 Test 03/31/17 07:44 Range/Units Bedside Glucose 145 70-99 mg/dl
[2017-03-31 16:27] LABS: INR 1.1 (0.9-1.1)
[2017-03-31 16:30] LABS: PTT PATIENT 50.8 SECONDS (21.0-31.0)
[2017-03-31 17:04] LABS: BASO % 0.3 %; BASO ABS # 0.02 K/uL (0-0.2); EOS % 4.5 %; EOS ABS # 0.29 K/uL (0-0.5); HEMATOCRIT 35.4 % (42-52); HEMOGLOBIN 11.6 g/dL (14.0-18.0); IG# 0.03 K/uL (0.00-0.02); LYMPH % 35.3 %; LYMPH ABS # 2.29 K/uL (1.2-3.4); MEAN CELL VOLUME 98.1 fL (80-100); MEAN CORPUSCULAR HEMOGLOBIN 32.1 pg (25-34); MEAN CORPUSCULAR HGB CONC 32.8 g/dl (32-36); MEAN PLATELET VOLUME 11.3 fL (7.4-10.4); MONO % 7.2 %; MONO ABS # 0.47 K/uL (0.11-0.59); NEUT % 52.2 %; NEUT ABS # 3.39 K/uL (1.4-6.5); PLATELET COUNT 135 K/uL (130-400); RED CELL DISTRIBUTION WIDTH CV 17.2 % (11.5-14.5); RED CELL DISTRIBUTION WIDTH SD 61.5 fL (36.4-46.3); WHITE BLOOD COUNT 6.49 K/uL (4.8-10.8)
[2017-03-31 19:27] VITALS: BP 110/65; PULSE 67; TEMP 36.6; O2SAT 98
[2017-03-31] MEDS: DOCUSATE SODIUM 100 MG CAP PO SCH (20:39)
[2017-03-31] MEDS: ASPIRIN 81 MG ECTAB PO SCH (20:39)
[2017-03-31] MEDS: INSULIN GLARGINE SOLOSTAR 100 UNITS/ML 3 ML PEN SC SCH (20:42)
[2017-04-01] VITALS (18 sets, daily range): BP systolic 92–125; BP diastolic 49–83; PULSE 59–107; TEMP 36.2–36.7; O2SAT 91–99
[2017-04-01] MEDS ORDERED: SODIUM CHLORIDE 0.9% 1000ML 1,000 ML IV SCH ×2 (06:00→13:30)
--- NOTE | 2017-04-01 07:02 | DIAGNOSTIC IMAGING REPORT ---
VIDEO SWALLOW STUDY CLINICAL HISTORY: Aspiration. COMPARISON STUDY: Video swallow study dated 02/28/2017. Fluoroscopy time: 1.6 minutes. FINDINGS: Fluoroscopic guidance was provided to the Department of speech pathology in performing a video swallow study. The patient consumed barium impregnated pudding, cracker with paste, nectar thick liquid, and thin barium while the swallowing mechanism was observed in real-time. There was pharyngeal penetration with trace aspiration seen with thin barium. No penetration or aspiration was seen with the remaining sampled textures. Pacemaking leads are noted. IMPRESSION: 1. There was pharyngeal penetration with trace aspiration seen with thin barium. 2. No penetration or aspiration was seen with the remaining sampled textures. 3. See dedicated speech pathology report for detailed findings and recommendations. Dictated: 03/31/2017 2:25 PM Transcribed: 04/01/2017 7:01 AM Fang Electronically signed by: Davon Barragan M.D. 04/01/2017 7:03 AM Dictated Date/Time: 03/31/2017 2:25 PM
[2017-04-01] MEDS: HEPARIN 25,000 UNIT/500ML D5W 500 ML IV PRN (07:11)
[2017-04-01 07:27] LABS: HEMATOCRIT 32.2 % (42-52); HEMOGLOBIN 10.6 g/dL (14.0-18.0); MEAN CELL VOLUME 98.5 fL (80-100); MEAN CORPUSCULAR HEMOGLOBIN 32.4 pg (25-34); MEAN CORPUSCULAR HGB CONC 32.9 g/dl (32-36); MEAN PLATELET VOLUME 10.4 fL (7.4-10.4); PLATELET COUNT 116 K/uL (130-400); RED CELL DISTRIBUTION WIDTH CV 17.6 % (11.5-14.5); RED CELL DISTRIBUTION WIDTH SD 63.7 fL (36.4-46.3); WHITE BLOOD COUNT 4.44 K/uL (4.8-10.8)
[2017-04-01 07:44] LABS: PTT PATIENT 60.8 SECONDS (21.0-31.0)
[2017-04-01 08:02] LABS: CALCIUM 9.2 mg/dl (8.5-10.1); CREATININE 1.06 mg/dl (0.60-1.40); POTASSIUM 4.2 mmol/L (3.5-5.1)
[2017-04-01] MEDS: INSULIN ASPART 100 UNITS/ML 3 ML PEN SC SCH ×4 (08:33→20:41)
[2017-04-01] MEDS: METOPROLOL SUCC 25MG EXT REL TAB PO SCH (08:35)
[2017-04-01] MEDS: MAGNESIUM CHLORIDE 64MG DELAYED REL TAB PO SCH ×2 (08:36→20:40)
[2017-04-01] MEDS: ROSUVASTATIN CALCIUM 5 MG TAB PO SCH (08:37)
[2017-04-01] MEDS: AMIODARONE 200 MG TAB PO SCH ×2 (08:37→20:40)
[2017-04-01] MEDS: AMOXICILLIN/CLAVULANATE TAB 500 MG TAB PO SCH ×2 (08:38→17:02)
--- NOTE | 2017-04-01 09:10 | PROGRESS NOTE ---
DATE: 04/01/2017 FOLLOWUP VISIT SUBJECTIVE: The patient is a 76-year-old with a history of ischemic cardiomyopathy and cardiac arrest survivor. The patient presented with chest pain and had an elevation in his troponins. He is scheduled to undergo cardiac catheterization today. All questions have been answered. The patient is willing to proceed. OBJECTIVE: GENERAL: He is alert and oriented, no acute distress. He has had no additional chest pain since yesterday. VITAL SIGNS: Blood pressure is 106/60, pulse is regular at 62. He is afebrile. HEENT: Normocephalic. Pupils are equal and reactive to light. Extraocular muscles are intact bilaterally. NECK: The neck veins are flat. Carotids have good upstrokes bilaterally without bruits. Thyroid is nonpalpable. RESPIRATORY: Breath sounds equal bilaterally and clear to auscultation. CARDIOVASCULAR: Heart has a regular rate and rhythm. Normal S1, S2. No S3, S4. No cardiac rubs or murmurs. GASTROINTESTINAL: Abdomen soft, nontender, without organomegaly. EXTREMITIES: Free of edema, digit clubbing or cyanosis. NEUROLOGIC: Grossly intact. SKIN: Warm to touch. LYMPH NODES: Negative to palpation. LABORATORY DATA: Hemoglobin is 10.6. Potassium is 4.2, creatinine is 1.06. IMPRESSION: 1. Unstable angina and [id number] elevation myocardial infarction. 2. Ischemic cardiomyopathy with chronic systolic heart failure. 3. Cardiac arrest survivor. 4. Status post biventricular pacemaker ICD. 5. Paroxysmal atrial fibrillation. 6. Diabetes mellitus. RECOMMENDATIONS: The patient will undergo cardiac catheterization today. He understands the risks, benefit and intent of this procedure including the potential for catheter based intervention such as balloon angioplasty or intercoronary stenting. We will add further recommendations following the above.
[2017-04-01] MEDS ORDERED: HEPARIN SOD (PORCINE) 1000 UNIT/ML 10 ML VIAL ONE (11:47)
[2017-04-01] MEDS ORDERED: MIDAZOLAM HCL 1 MG/ML 2ML VIAL ONE (11:47)
[2017-04-01] MEDS ORDERED: NiCARDipine HCL INJ 2.5 MG/ML 10 ML AMP ONE (11:47)
[2017-04-01] MEDS ORDERED: NITROGLYCERIN/D5W 100MCG/ML 20ML SYR ONE (11:48)
[2017-04-01] MEDS ORDERED: SODIUM CHLORIDE 0.9% 1000ML 250 ML IV PRN (12:56)
[2017-04-01] MEDS ORDERED: ONDANSETRON INJ 2 MG/ML 2 ML VIAL IV PRN (13:00)
[2017-04-01] MEDS ORDERED: ACETAMINOPHEN 325 MG TAB PO PRN (13:00)
[2017-04-01] MEDS ORDERED: ATROPINE SULFATE 0.1 MG/ML 5ML SYR IV PRN (13:00)
--- NOTE | 2017-04-01 13:00 | Pre Sedation Assessment ---
Pre Sedation Assessment General Date of Sedation: Apr 01, 2017. 12:14pm Vital Signs Past 12 Hours Date Time Temp Pulse Resp B/P (MAP) Pulse Ox O2 Delivery O2 Flow Rate FiO2 04/01/17 11:57 36.3 65 20 101/56 (71) 94 Room Air 04/01/17 11:44 Room Air Oxymask 04/01/17 08:34 36.4 62 20 106/56 (73) 96 Oxymask 2.0 Mask 04/01/17 08:00 Room Air Oxymask 04/01/17 04:00 Oxymask 2.0 04/01/17 04:00 36.2 63 16 100/51 (67) 95 Oxymask 2.0 Review Cardiovascular: regular rate, rhythm Lungs: lungs clear Pre-Sedation Airway Assessment Smoking Status: Former Smoker Hx of Sleep Apnea: No Short Thick Neck: No Oral Cavity: Dentures Mallampati Classification: Class III (Soft palate, base of uvula) ASA Classification: Class II NPO Status Date of Last Intake of Fluids: Mar 31, 2017 Time of Last Intake of Fluids: 2300 Date of Last Intake of Solids: Mar 31, 2017 Time of Last Intake of Solids: 2300 Procedure Planning Contraindications for Sedation: None Current Medications Reviewed: Yes Notes The planned sedation has been discussed with the patient. Informed Consent was obtained. I have identified the patient, determined the appropriateness of sedation and have assessed the patient immediately prior to the procedure. All medicine(s) and interventions are by my order.
--- NOTE | 2017-04-01 13:00 | Post Sedation Assessment ---
Post Sedation Assessment General Date of Sedation Apr 01, 2017. 12:48 PM Vital Signs: Vital Signs Past 12 Hours Date Time Temp Pulse Resp B/P (MAP) Pulse Ox O2 Delivery O2 Flow Rate FiO2 04/01/17 11:57 36.3 65 20 101/56 (71) 94 Room Air 04/01/17 11:44 Room Air Oxymask 04/01/17 08:34 36.4 62 20 106/56 (73) 96 Oxymask 2.0 Mask 04/01/17 08:00 Room Air Oxymask 04/01/17 04:00 Oxymask 2.0 04/01/17 04:00 36.2 63 16 100/51 (67) 95 Oxymask 2.0 Post Procedure Recovery Score Respiration: (2) Deep breath/cough Circulation: (2) +/-20% PreAnes Value Consciousness: (2) Fully Awake Oxygen Saturation: (2) > 92% On Room Air Discharge Sedation Level of Care: Phase I Post Sedation Plan On clinical assessment, the patient appears to have tolerated the sedation without complications. Patient is recovering as anticipated. Patient will continue to be monitored by nursing and may be discharged when sedation discharge criteria are met per below protocol. Upon Completions of procedure and additional 15 minutes continue every 5 minute vital signs and the P.A.R. score; then discharge to a Phase I or Fast Track to Phase II per the following guidelines: * Discharge Patient to appropriate Phase II area if PAR is 8 or greater or return to pre- procedure baseline. The post - procedure orders will be as directed. * If PAR score is less than 8 or not return to pre-procedure baseline then patient will follow Phase I monitoring till PAR is reached for Phase II. The Phase I may be done in procedure room or may call to secure a Phase I area. * If naloxone or flumazenil are used for reversal, hold in Phase I for an additional 60 -120 minutes before discharge to Phase II. Please call the Sedation Physician to re-evaluate and complete post-note for discharge to Phase II area. Do NOT discharge from procedure sedation or Phase 1 until post- sedation evaluation note is complete by procedure /sedation MD Sedation Discharge Instructions to be given to the patient at discharge to home.
--- NOTE | 2017-04-01 13:15 | Cardiac Catheterization ---
Procedure Note Procedure Date Apr 01, 2017. Pre-Procedure Diagnosis Non STEMI AUC Score 9 Post-Procedure Diagnosis Severe CAD Procedure(s) Performed Coronary Angiography, Left Heart Cath, LV Angiography Mash Tub [employer]er Dr. Gallegos [employer] Business Administrator(s) None Estimated Blood Loss None Medication(s) Versed, Lidocaine 1% Summary of Findings See dictated report Hemodynamics Rest Ao: 82/58 Final Ao: 94/62 LV: 76/20 Recommendations Medical therapy and/or Counseling Specimens None Radiation Exposure (mGy) 3417 Contrast (mls) 181 Procedural Complication(s) None Disposition PCU ACC Data Cardiac Status Clinical evaluation leading to the procedure CAD Presntation: Unstable angina Anginal Classification: CCS II Heart Failure: Yes, NYHA Class: CCS III Cardiogenic Shock w/in 24Hrs: No Cardiac Arrest w/in 24Hrs: No Imaging studies past 6 months: Yes Stress studies past 6 months: Yes Coronary Anatomy Dominant: Right LAD (% Stenosis): Distal (80) Circumflex (% Stenosis): Ostial (100) RCA (% Stenosis): Mid (80) Left Ventricular Angiography EF (%): 30 Wall Motion: Inferior (Akinetic) Closure Device Percutaneous Entry Location: Radial Closure Device: Radial Band Recommendations: Medical therapy and/or Counseling
--- NOTE | 2017-04-01 15:55 | CARDIAC CATH REPORT ---
PROCEDURES: 1. Left heart catheterization. 2. Coronary angiography. 3. Left ventriculography. HISTORY: Mr. Marie is a 76-year-old male patient who has had a recent complex cardiac history. In the 1989 he sustained a myocardial infarction and at the time of cardiac catheterization he was found to have an occluded right coronary artery. He then presented in December 2016 with heart failure. He was found to have an ischemic cardiomyopathy with an estimated left ventricular ejection fraction of 25% to 30%. He underwent a nuclear stress test which showed a large area of infarct of the inferior and posterior myocardium and no active ischemia. The patient was discharged with a LifeVest and then returned with a cardiac arrest. He underwent an arctic protocol and had a prolonged hospital stay, receiving a biventricular pacemaker ICD prior to discharge. The patient was at home. He had an episode of angina. This was the first episode of chest pain after being discharged. His family gave him 1 sublingual nitroglycerin and then brought him to the hospital. After admission, he had an elevation in his cardiac markers. He also had some chest discomfort walking through the halls of the nursing unit. It was decided that it was best that we perform a cardiac catheterization. PROCEDURE SUMMARY: After informed consent was obtained, patient was taken to the cardiac catheterization lab, where he was prepped and draped in the usual manner. After negative Barbeau maneuver, patient was prepped and draped for a right transradial approach. Preformed 5-Malian diagnostic catheters were utilized for the coronary angiogram. A 5-Malian pigtail catheter was utilized for the left ventriculogram. Following the procedure, patient was returned to his room in stable condition. CORONARY ANGIOGRAPHY: Selective injections of the left coronary artery revealed diffuse coronary artery disease. The patient has a dual ostium left main with the left circumflex artery being occluded at its origin and filling from [id number] and [id number] collaterals distally. The LAD has evidence of calcified diffuse coronary disease, which is nonobstructive proximally; however, at the very distal portion of the artery, there is at least an 80% to 90% stenosis. The LAD gives off a first diagonal which has diffuse disease. The left circumflex artery seen by collateral flow suggest a single large marginal branch. There is also [id number] collateral flow to the right coronary artery distally. Selective injections of the right coronary artery revealed to be functionally occluded in its mid segment, but also able to supply collateral flow to the left circumflex artery. LEFT VENTRICULOGRAM: The left ventricle is dilated. There is akinesis of the inferior and inferior base or myocardium. The mitral valve is competent. The estimated left ventricular ejection fraction is around 30%. The LVEDP is 20. SUMMARY: The patient has severe diffuse coronary artery disease. The right coronary artery was previously occluded in its mid segment by cardiac catheterization in . The right coronary artery has partially recannulated and does supply collateral flow to the distal left circumflex. The left main trunk is a dual ostium with the left circumflex artery being occluded at its origin. The left circumflex artery fills from collaterals both from the right and left coronary arteries. The LAD is diffusely diseased with nonobstructive disease until its very distal segment, where there is an 80% stenosis. The patient has an ischemic cardiomyopathy with previous infarct of the inferior and inferior base or myocardium. RECOMMENDATIONS: I believe this patient is best treated medically. I do not believe he has good targets for coronary bypass nor coronary intervention.
--- NOTE | 2017-04-01 17:15 | Progress Note ---
Medicine Progress Note Date & Time of Visit: Apr 01, 2017 at 17:15. Subjective Patient seen with family at the bedside. Is upset/worried about results of the cath. No overnight events noted. Tolerating PO without difficulty. Denies any complaints of pain presently. Objective Last 8 Hrs Date Time Temp Pulse Resp B/P (MAP) Pulse Ox O2 Delivery O2 Flow Rate FiO2 04/01/17 17:00 36.4 63 18 115/67 (83) 92 Room Air 04/01/17 16:30 36.5 60 18 113/62 (79) 94 Room Air 04/01/17 16:00 36.4 60 18 96/57 (70) 93 Room Air 04/01/17 16:00 95 Room Air 04/01/17 15:45 36.7 60 18 94/55 (68) 93 Room Air 04/01/17 15:30 36.7 61 18 108/62 (77) 96 Room Air 04/01/17 15:15 36.3 63 20 108/62 (77) 93 Room Air 04/01/17 15:00 36.4 60 20 107/64 (78) 94 Room Air 04/01/17 15:00 64 16 104/48 (66) 97 Room Air 04/01/17 14:45 63 16 106/46 (66) 95 Room Air 04/01/17 14:30 64 16 100/42 (61) 96 Room Air 04/01/17 14:15 60 16 98/52 (67) 96 Room Air 04/01/17 14:00 60 16 100/50 (67) 96 Room Air 04/01/17 13:45 61 16 97/52 (67) 96 Room Air 04/01/17 13:30 60 16 94/50 (65) 96 Room Air 04/01/17 13:15 60 16 97/56 (70) 96 Room Air 04/01/17 13:00 61 16 92/48 (63) 96 Room Air 04/01/17 12:58 04/01/17 12:53 04/01/17 12:48 16 102/50 (67) 96 04/01/17 11:57 36.3 65 20 101/56 (71) 94 Room Air 04/01/17 11:44 Room Air Oxymask Physical Exam: GENERAL: Patient is in no acute distress. HEENT: No acute trauma, normocephalic atraumatic, mucous membranes moist, no nasal congestion, no scleral icterus, conjunctivae clear. + hoarseness. NECK: No stridor, trachea is midline. LUNGS: Clear to auscultation bilaterally, no wheeze, no rhonchi, breath sounds equal. HEART: Without murmurs gallops or rubs, regular rate and rhythm. ABDOMEN: Soft, nontender, bowel sounds positive EXTREMITIES: No cyanosis or edema, full range of motion of all the joints without pain or difficulty, no signs for acute trauma. NEUROLOGIC: Oriented x 3, no acute motor or sensory deficits, no focal weakness. SKIN: No rash, no jaundice, no diaphoresis. Laboratory Results: Last 24 Hours Test 03/31/17 20:08 04/01/17 07:01 04/01/17 07:43 Bedside Glucose 141 mg/dl 114 mg/dl White Blood Count 4.44 K/uL Red Blood Count 3.27 M/uL Hemoglobin 10.6 g/dL Hematocrit 32.2 % Mean Corpuscular Volume 98.5 fL Mean Corpuscular Hemoglobin 32.4 pg Mean Corpuscular Hemoglobin Concent 32.9 g/dl RDW Standard Deviation 63.7 fL RDW Coefficient of Variation 17.6 % Platelet Count 116 K/uL Mean Platelet Volume 10.4 fL Activated Partial Thromboplast Time 60.8 SECONDS Partial Thromboplastin Ratio 2.3 Sodium Level 138 mmol/L Potassium Level 4.2 mmol/L Chloride Level 103 mmol/L Carbon Dioxide Level 30 mmol/L Anion Gap 5.0 mmol/L Blood Urea Nitrogen 26 mg/dl Creatinine 1.06 mg/dl Est Creatinine Clear Calc Drug Dose 60.1 ml/min Estimated GFR () 79.7 Estimated GFR (Non- 68.8 BUN/Creatinine Ratio 24.2 Random Glucose 116 mg/dl Calcium Level 9.2 mg/dl Magnesium Level 2.5 mg/dl Assessment & Plan NSTEMI: Unstable Angina -Risk factors: H/O CAD, HTN, HLP, Former Tobacco use disorder, DM II -Troponin trending down -EKG: LBBB, No acute signs of ischemia -CXR: negative -Last TTE: EF:25-30% -on IV heparin -continued on Aspirin, statins, BB -Oxygen PRN -Cardiology consulted, cardiac cath today showed diffuse severe CAD not amenable to intervention; medical therapy/management recommended ROBERTO ON CKD III: -Cr levels Improved -resume diuretics as able -Hold metformin -Gentle IV fluids stopped -monitor renal function PROLONGED QTC: -on Amiodarone -monitor -avoid other QT prolonging meds ?BRONCHITIS: -started on Augmentin Day # 3 due to high aspiration risk -CXR: no signs of consolidation CHRONIC SYSTOLIC AND DIASTOLIC CHF: -Ischemic cardiomyopathy -EF 25-30% -LBBB with prolonged QRS -S/P biventricular pacemaker defibrillator implantation on 03/05/17 by -diuretics held as clinically dehydrated, resume in 1-2 days -was on Torsemide and spironolactone -Monitor electrolytes HX OF VENTRICULAR TACHYCARDIA AND PAF: -continued on amiodarone, Metoprolol for rate control -Eliquis held and restart upon discharge -on IV heparin currently ASPIRATION RISK: -Swallow Eval: Aspiration precautions HOARSENESS: -since last admission -follow up with ENT as outpatient DM TYPE II: -HbA1c: 6.9 on 02/18/17 -continue ISS, lantus -hold Metformin GERD/Hiatal Hernia: -continue PPI Current Inpatient Medications: Current Inpatient Medications Medications (Trade) Dose Ordered Sig/Shakira Route Start Time Stop Time Status Last Admin Dose Admin Acetaminophen (Tylenol Tab) 650 mg Q4H PRN PO 03/30/17 11:30 04/29/17 11:29 Nitroglycerin (Nitrostat Tab) 0.4 mg UD PRN SL 03/30/17 11:30 04/29/17 11:29 Insulin Aspart (novoLOG ASPART) SLIDING SCALE If C... ACHS SC 03/30/17 16:00 04/29/17 15:59 03/31/17 17:44 3 UNITS Glucose (Glucose 40% Gel) 15-30 GRAMS 15 GRAMS... UD PRN PO 03/30/17 11:45 04/29/17 11:44 Glucose (Glucose Chew Tab) 4-8 Tablets 4 Tabl... UD PRN PO 03/30/17 11:45 04/29/17 11:44 Dextrose (Dextrose 50% 50ML Syringe) 25-50ML OF 50% DW IV FOR... UD PRN IV 03/30/17 11:45 04/29/17 11:44 Glucagon (Glucagon Inj) 1 mg UD PRN SQ 03/30/17 11:45 04/29/17 11:44 Amoxicillin/ Clavulanate Potassium (Augmentin Tab) 500 mg BIDM PO 03/30/17 17:00 04/04/17 17:59 04/01/17 17:02 500 MG Amiodarone HCl (Cordarone Tab) 200 mg BID PO 03/30/17 21:00 04/29/17 20:59 04/01/17 08:37 200 MG Aspirin (Ecotrin Tab) 81 mg HS PO 03/30/17 21:00 04/29/17 20:59 03/31/17 20:39 81 MG Docusate Sodium (coLACE CAP) 100 mg HS PO 03/30/17 21:00 04/29/17 20:59 03/31/17 20:39 100 MG Magnesium Chloride (Slow-Mag Tab) 64 mg BID PO 03/30/17 21:00 04/29/17 20:59 04/01/17 08:36 64 MG Metoprolol Succinate (Toprol Xl Tab) 25 mg QAM PO 03/31/17 09:00 04/30/17 08:59 04/01/17 08:35 25 MG Polyethylene (Miralax Powder Packet) 17 gm DAILY PRN PO 03/30/17 11:45 04/29/17 11:44 03/31/17 07:51 17 GM Rosuvastatin Calcium (Crestor Tab) 5 mg QAM PO 03/31/17 09:00 04/30/17 08:59 04/01/17 08:37 5 MG Sucralfate (Carafate Susp) 1 gm ACHS PRN PO 03/30/17 16:30 04/29/17 16:29 Pantoprazole Sodium (Protonix Tab) 40 mg QAM PRN PO 03/31/17 09:00 04/03/17 08:59 Insulin Glargine (Lantus Solostar Pen) 5 units HS SC 03/30/17 21:00 04/29/17 20:59 03/31/17 20:42 5 UNITS Promethazine HCl 12.5 mg/Sodium Chloride 50.5 ml @ 204 mls/hr Q6H PRN IV 03/30/17 12:00 04/29/17 11:59 Albuterol/ Ipratropium (Duoneb) 3 ml QIDR PRN INH 03/30/17 12:00 04/29/17 11:59 Miscellaneous (Iv Fluids Completed) 1 ea PRN PRN N/A 03/30/17 14:30 03/30/18 14:29 Heparin Sodium/ Dextrose 500 ml @ 25 mls/hr Q20H PRN IV 03/31/17 10:15 04/30/17 10:14 04/01/17 07:11 25 MLS/HR Sodium Chloride 1,000 ml @ 50 mls/hr Q20H IV 04/01/17 13:30 05/01/17 13:29 Sodium Chloride 250 ml @ 999 mls/hr Q16M PRN IV 04/01/17 12:56 05/01/17 12:55 Atropine Sulfate (Atropine Sulfate 0.1mg/ml Inj) 0.6 mg PRN PRN IV 04/01/17 13:00 05/01/17 12:59 Ondansetron HCl (Zofran Inj) 4 mg Q6H PRN IV 04/01/17 13:00 05/01/17 12:59
[2017-04-01] MEDS: DOCUSATE SODIUM 100 MG CAP PO SCH (20:39)
[2017-04-01] MEDS: ASPIRIN 81 MG ECTAB PO SCH (20:40)
[2017-04-01] MEDS: INSULIN GLARGINE SOLOSTAR 100 UNITS/ML 3 ML PEN SC SCH (20:43)
[2017-04-01] MEDS ORDERED: ALBUT/IPRATROP 3MG/0.5MG NEB 3 ML VIAL INH PRN (22:30)
[2017-04-01] MEDS ORDERED: TRAMADOL HCL 50 MG TAB PO PRN (22:30)
--- NOTE | 2017-04-01 22:48 | DIAGNOSTIC IMAGING REPORT ---
CHEST ONE VIEW PORTABLE CLINICAL HISTORY: Shortness of breath and chest pain. COMPARISON STUDY: Chest radiograph March 30, 2017. FINDINGS: A left-sided plate and pacer/AICD is in place. There is no pneumothorax or pleural effusion. Mild cardiomegaly is noted. There is no lobar consolidation. Interstitial thickening has developed. IMPRESSION: Interval development of interstitial thickening which favors mild pulmonary edema. Electronically signed by: Olivier Iniguez M.D. 04/01/2017 10:47 PM Dictated Date/Time: 04/01/2017 10:46 PM
[2017-04-01] MEDS ORDERED: ALBUT/IPRATROP 3MG/0.5MG NEB 3 ML VIAL INH STA (22:57)
[2017-04-02] VITALS (11 sets, daily range): BP systolic 92–106; BP diastolic 47–61; PULSE 60–81; TEMP 36.3–37; O2SAT 87–100
[2017-04-02 03:28] LABS: PTT PATIENT 47.2 SECONDS (21.0-31.0)
[2017-04-02] MEDS: AMOXICILLIN/CLAVULANATE TAB 500 MG TAB PO SCH ×2 (07:58→16:39)
[2017-04-02] MEDS: AMIODARONE 200 MG TAB PO SCH ×2 (07:58→20:36)
[2017-04-02] MEDS: MAGNESIUM CHLORIDE 64MG DELAYED REL TAB PO SCH ×2 (07:58→20:38)
[2017-04-02] MEDS: ROSUVASTATIN CALCIUM 5 MG TAB PO SCH (07:58)
[2017-04-02] MEDS: METOPROLOL SUCC 25MG EXT REL TAB PO SCH (07:58)
[2017-04-02] MEDS: INSULIN ASPART 100 UNITS/ML 3 ML PEN SC SCH ×4 (08:00→20:38)
[2017-04-02] MEDS: ALBUT/IPRATROP 3MG/0.5MG NEB 3 ML VIAL INH SCH ×4 (09:30→23:25)
--- NOTE | 2017-04-02 09:41 | PROGRESS NOTE ---
DATE: 04/02/2017 FOLLOWUP VISIT SUBJECTIVE: The patient is a 76-year-old male with an ischemic cardiomyopathy, cardiac arrest survivor with a biventricular pacemaker/ICD. He was admitted with angina. He had a bump in his cardiac troponins. Yesterday, he underwent a cardiac catheterization that revealed severe diffuse coronary artery disease with no adequate targets for bypass or coronary intervention. It has been decided that he should be medically managed. I discussed this option with the patient and his family and they are agreeable to this approach. Last night, the patient did have some what he calls anxiety. According to the nurses, he became anxious and short of breath. He was given a nebulizer treatment and was able to cough up some mucous and felt improved. He has no complaints today. Usually at home, he is on a nebulizer 4 times a day and here, it was only written for p.r.n. status. He may benefit from q.i.d. dosing. OBJECTIVE: GENERAL: He is alert and oriented in no acute distress. VITAL SIGNS: Blood pressure is 110/70, pulse is regular at 67. He is afebrile. HEENT: He is normocephalic. Pupils are equal and reactive to light. Extraocular muscles are intact bilaterally. NECK: The neck veins are flat. Carotids have good upstrokes bilaterally without bruits. Thyroid is nonpalpable. RESPIRATORY: Breath sounds equal bilaterally and clear to auscultation. CARDIOVASCULAR: Heart has a regular rhythm. Normal S1, S2. No S3, S4. No cardiac rubs or murmurs. GASTROINTESTINAL: Abdomen is soft, nontender without organomegaly. EXTREMITIES: Free of edema, digit clubbing, or cyanosis. NEUROLOGIC: Grossly intact. SKIN: Warm to touch. LYMPH NODES: Negative to palpation. LABORATORY DATA: Cardiac troponin this morning is 0.046. Creatinine is 1.06, potassium is 4.2. IMPRESSION: 1. Ischemic heart disease with chronic angina. 2. Severe diffuse coronary artery disease. 3. Ischemic cardiomyopathy with a previous large inferior posterior wall myocardial infarction. 4. Status post biventricular implantable cardioverter-defibrillator pacemaker. 5. Cardiac arrest survivor. RECOMMENDATIONS: As outlined above, I will increase his nebulizers to 4 times a day, which he uses at home. I think that perhaps his anxiety last night may have been related to inability to clear secretions. These events are most likely due to COPD, but also his previous prolonged intubation that he had after his cardiac arrest in February. I would keep him for another day on telemetry. We will discontinue his heparin and restart his Eliquis today.
[2017-04-02] MEDS ORDERED: APIXABAN 2.5 MG TAB PO ONE (10:00)
--- NOTE | 2017-04-02 19:34 | Progress Note ---
Medicine Progress Note Date & Time of Visit: Apr 02, 2017 at 19:34. Subjective Patient reports he is feeling ok, states he ambulated with therapy earlier today. States after the walk he had 3/10 intensity chest pain but not as severe as he previously experienced. No overnight events noted. The patient feels his breathing is better and would like his nebs 4 times a day as he uses at home. Possible discharge tomorrow. Objective Last 8 Hrs Date Time Temp Pulse Resp B/P (MAP) Pulse Ox O2 Delivery O2 Flow Rate FiO2 04/02/17 16:00 97 Oxymask 2.0 04/02/17 14:58 36.3 62 18 101/56 (71) 97 Room Air 04/02/17 13:34 81 18 97 Room Air 04/02/17 12:00 Oxymask 3.5 Physical Exam: GENERAL: Patient is in no acute distress. HEENT: No acute trauma, normocephalic atraumatic, mucous membranes moist, no nasal congestion, no scleral icterus, conjunctivae clear. + hoarseness. NECK: No stridor, trachea is midline. LUNGS: Diminished bilaterally, no wheeze, no rhonchi, breath sounds equal. HEART: Without murmurs gallops or rubs, regular rate and rhythm. ABDOMEN: Soft, nontender, bowel sounds positive EXTREMITIES: No cyanosis or edema, full range of motion of all the joints without pain or difficulty, no signs for acute trauma. NEUROLOGIC: Oriented x 3, no acute motor or sensory deficits, no focal weakness. SKIN: No rash, no jaundice, no diaphoresis. Laboratory Results: Last 24 Hours Test 04/01/17 20:13 04/01/17 22:38 04/02/17 02:44 04/02/17 06:18 Bedside Glucose 117 mg/dl 108 mg/dl Troponin I 0.046 ng/ml Activated Partial Thromboplast Time 47.2 SECONDS Partial Thromboplastin Ratio 1.8 Test 04/02/17 11:28 04/02/17 16:15 Bedside Glucose 137 mg/dl 102 mg/dl Assessment & Plan NSTEMI: Unstable Angina -Risk factors: H/O CAD, HTN, HLP, Former Tobacco use disorder, DM II -Troponin trending down -EKG: LBBB, No acute signs of ischemia -CXR: negative -Last TTE: EF:25-30% -on IV heparin-->[facility]continued on Aspirin, statins, BB -Oxygen PRN -Cardiology consulted, cardiac cath yesterday showed diffuse severe CAD not likely amenable to intervention; medical therapy/management recommended ROBERTO ON CKD III: -Cr levels Improved -resume diuretics as able -Hold metformin -Gentle IV fluids stopped -monitor renal function PROLONGED QTC: -on Amiodarone -monitor -avoid other QT prolonging meds ?BRONCHITIS: -started on Augmentin Day # 4 due to high aspiration risk -CXR: no signs of consolidation CHRONIC SYSTOLIC AND DIASTOLIC CHF: -Ischemic cardiomyopathy -EF 25-30% -LBBB with prolonged QRS -S/P biventricular pacemaker defibrillator implantation on 03/05/17 by -diuretics held as clinically dehydrated, resume tomorrow -was on Torsemide and spironolactone -Monitor electrolytes HX OF VENTRICULAR TACHYCARDIA AND PAF: -continued on amiodarone, Metoprolol for rate control -Eliquis restarted ASPIRATION RISK: -Swallow Eval: Aspiration precautions, patient has been swallowing without difficulty HOARSENESS: -since last admission -follow up with ENT as outpatient DM TYPE II: -HbA1c: 6.9 on 02/18/17 -continue ISS, lantus -hold Metformin GERD/Hiatal Hernia: -continue PPI Current Inpatient Medications: Current Inpatient Medications Medications (Trade) Dose Ordered Sig/Shakira Route Start Time Stop Time Status Last Admin Dose Admin Acetaminophen (Tylenol Tab) 650 mg Q4H PRN PO 03/30/17 11:30 04/29/17 11:29 Nitroglycerin (Nitrostat Tab) 0.4 mg UD PRN SL 03/30/17 11:30 04/29/17 11:29 Insulin Aspart (novoLOG ASPART) SLIDING SCALE If C... ACHS SC 03/30/17 16:00 04/29/17 15:59 04/02/17 17:33 1 UNITS Glucose (Glucose 40% Gel) 15-30 GRAMS 15 GRAMS... UD PRN PO 03/30/17 11:45 04/29/17 11:44 Glucose (Glucose Chew Tab) 4-8 Tablets 4 Tabl... UD PRN PO 03/30/17 11:45 04/29/17 11:44 Dextrose (Dextrose 50% 50ML Syringe) 25-50ML OF 50% DW IV FOR... UD PRN IV 03/30/17 11:45 04/29/17 11:44 Glucagon (Glucagon Inj) 1 mg UD PRN SQ 03/30/17 11:45 04/29/17 11:44 Amoxicillin/ Clavulanate Potassium (Augmentin Tab) 500 mg BIDM PO 03/30/17 17:00 04/04/17 17:59 04/02/17 16:39 500 MG Amiodarone HCl (Cordarone Tab) 200 mg BID PO 03/30/17 21:00 04/29/17 20:59 04/02/17 07:58 200 MG Aspirin (Ecotrin Tab) 81 mg HS PO 03/30/17 21:00 04/29/17 20:59 04/01/17 20:40 81 MG Docusate Sodium (coLACE CAP) 100 mg HS PO 03/30/17 21:00 04/29/17 20:59 04/01/17 20:39 100 MG Magnesium Chloride (Slow-Mag Tab) 64 mg BID PO 03/30/17 21:00 04/29/17 20:59 04/02/17 07:58 64 MG Metoprolol Succinate (Toprol Xl Tab) 25 mg QAM PO 03/31/17 09:00 04/30/17 08:59 04/02/17 07:58 25 MG Polyethylene (Miralax Powder Packet) 17 gm DAILY PRN PO 03/30/17 11:45 04/29/17 11:44 03/31/17 07:51 17 GM Rosuvastatin Calcium (Crestor Tab) 5 mg QAM PO 03/31/17 09:00 04/30/17 08:59 04/02/17 07:58 5 MG Sucralfate (Carafate Susp) 1 gm ACHS PRN PO 03/30/17 16:30 04/29/17 16:29 Pantoprazole Sodium (Protonix Tab) 40 mg QAM PRN PO 03/31/17 09:00 04/03/17 08:59 Insulin Glargine (Lantus Solostar Pen) 5 units HS SC 03/30/17 21:00 04/29/17 20:59 04/01/17 20:43 5 UNITS Promethazine HCl 12.5 mg/Sodium Chloride 50.5 ml @ 204 mls/hr Q6H PRN IV 03/30/17 12:00 04/29/17 11:59 Miscellaneous (Iv Fluids Completed) 1 ea PRN PRN N/A 03/30/17 14:30 03/30/18 14:29 Atropine Sulfate (Atropine Sulfate 0.1mg/ml Inj) 0.6 mg PRN PRN IV 04/01/17 13:00 05/01/17 12:59 Ondansetron HCl (Zofran Inj) 4 mg Q6H PRN IV 04/01/17 13:00 05/01/17 12:59 Albuterol/ Ipratropium (Duoneb) 3 ml Q2H PRN INH 04/01/17 22:30 05/01/17 22:29 04/02/17 13:33 3 ML Tramadol HCl (Ultram Tab) 25 mg Q6H PRN PO 04/01/17 22:30 05/01/17 22:29 Albuterol/ Ipratropium (Duoneb) 3 ml QIDR INH 04/02/17 09:30 04/29/17 11:59 Apixaban (Eliquis Tab) 5 mg BID PO 04/02/17 21:00 05/02/17 20:59
[2017-04-02] MEDS: DOCUSATE SODIUM 100 MG CAP PO SCH (20:36)
[2017-04-02] MEDS: ASPIRIN 81 MG ECTAB PO SCH (20:37)
[2017-04-02] MEDS: INSULIN GLARGINE SOLOSTAR 100 UNITS/ML 3 ML PEN SC SCH (20:39)
[2017-04-02] MEDS ORDERED: APIXABAN 2.5 MG TAB PO SCH (21:00)
[2017-04-02] MEDS ORDERED: MoRPHine SULFATE 2 MG/ML CARP IV STA (23:00)
[2017-04-02] MEDS ORDERED: MoRPHine SULFATE 2 MG/ML CARP ONE (23:03)
[2017-04-03] MEDS ORDERED: FUROSEMIDE 40 MG/4 ML VIAL ONE (00:23)
[2017-04-03] MEDS ORDERED: FUROSEMIDE INJ 40 MG in SYRINGE 0 ML IV SCH (00:30)
[2017-04-03] MEDS: INSULIN ASPART 100 UNITS/ML 3 ML PEN SC SCH (00:54)
[2017-04-03] MEDS ORDERED: RAPID SEQUENCE INDUCTION BAG ONE (01:00)
--- NOTE | 2017-04-03 01:50 | EMERGENCY ROOM VISIT NOTE ---
ED Visit Note First contact with patient: 09:14 Endotracheal Intubation Indication Cardiac Arrest. The patient was on 100% oxygen via BVM prior to the procedure. Suction, airway equipment, respiratory equipment, and appropriate personnel were prepared prior to the initiation of the procedure. The airway was easily visualized utilizing a Mac Blade. A 7.5 size ETT tube was placed atraumatically to 24 cm using standard technique. The cuff inflated without signs of malfunction. There were bilateral breath sounds, positive colormetric change, no gastric sounds.
--- NOTE | 2017-04-03 02:05 | Critical Care Progress Note ---
Critical Care Progress Note Date of Service Apr 03, 2017. Critical Care Progress Note I responded to a CODE BLUE paged overhead in room 238-2. Upon arrival, nursing staff and respiratory therapy were bagging the patient secondary to presumed respiratory arrest. The patient was felt to have a pulse initially. Palpable pulse and organized rhythm rapidly declined. CPR with high quality chest compressions was performed per ACLS protocol. Patient received a total of 5 amps Epinephrine and 1 amp Bicarb. Airway was secured with successful endotracheal intubation performed by ED Provider. [place], frothy material was noted in copious amounts from the endotracheal tube. The patient never regained a pulse. There was never an organized rhythm. After several rounds of high quality CPR and multiple medications listed above, the patient's family arrived at bedside. At this point, and given the unsuccessful resuscitative efforts, it was agreed to abort all resuscitative efforts. Bedside ultrasound was performed by myself and demonstrated no meaningful cardiac activity with "smoke sign" of the ventricles noted. No Doppler/palpable pulses appreciated. No heart or breath sounds noted on exam. No response to pain or voice. Pupils were fixed and dilated. Patient with time of called at 0123. Offered condolences and spoke with patient's family at length at bedside.
--- NOTE | 2017-04-03 06:29 | DIAGNOSTIC IMAGING REPORT ---
CHEST ONE VIEW PORTABLE CLINICAL HISTORY: chf dyspnea COMPARISON STUDY: 04/01/2017 FINDINGS: Progressive components of pulmonary edema. Diffuse parenchymal infiltrative change throughout both hemithoraces increased from the prior day. Bipolar cardiac pacemaker/fibrillator with leads in good position. IMPRESSION: Progressive pulmonary edema. The above report was generated using voice recognition software. It may contain grammatical, syntax or spelling errors. Electronically signed by: Ariel Miller M.D. 04/03/2017 6:28 AM Dictated Date/Time: 04/03/2017 6:27 AM
[2017-04-03] MEDS ORDERED: INSULIN ASPART 100 UNITS/ML 3 ML PEN SC SCH (07:00)
--- NOTE | 2017-04-03 07:56 | Discharge Summary ---
Discharge Summary Date of Service Apr 03, 2017. Discharge Summary Admission Date: Apr 01, 2017 at 17:14 Discharge Disposition: Principal Diagnosis: NSTEMI, Cardiopulmonary arrest Admission Information HPI (per Admitting provider): Patient is a 76 yr male with PMH of CAD, PVD, DM II, CHF with EF:25-30%, HLP, LBBB, COPD, HTN, CKD III, Pacemaker, P.afib on chronic anticoagulation, Oxygen dependency:2L at bedtime and other problems who was recently discharged from [facility] after being treated for Cardiac arrest from [facility], respiratory failure requiring intubation, and completed hypothermia protocol during prior admission and had pacemaker placement presents with history of sudden onset of chest pain which started this morning while at rest. Patient states chest pain is retrosternal, aching type, 8/10 intensity, radiated to both shoulders, which improved with NTG which he took after chest pain started. Chest is associated with SOB and diaphoresis. Currently in ED patient received Aspirin and is chest pain free. Patient has been having cough with expectoration since few days and recently completed 10 day course of antibiotics prescribed by PCP. Family states he could be aspirating at times and has been feeling tired since last 3 days. Also reports being constipated and last BM was 2 days ago. Denies any history of palpitations, orthopnea, PND, dizziness, fever, chills, headache, change in vision, nausea, vomiting, abdominal pain. Physical Exam (per Admitting): General Appearance: WD/WN, no apparent distress Head: normocephalic, atraumatic Eyes: normal inspection, PERRL, EOMI, sclerae normal ENT: normal ENT inspection, hearing grossly normal Neck: supple, trachea midline Respiratory/Chest: chest non-tender, no accessory muscle use, + decreased breath sounds, + crackles (at bases) Cardiovascular: regular rate, rhythm, no murmur, + pertinent finding (Trace pedal edema) Abdomen/GI: normal bowel sounds, non tender, soft Back: normal inspection Extremities/Musculoskelatal: normal inspection, + pedal edema Neurologic/Psych: inside sales manager II-XII nml as tested, no motor/sensory deficits, alert , normal mood/affect, oriented x 3, + pertinent finding (Hoarse voice) Skin: normal color, warm/dry Hospital Course NSTEMI: Unstable Angina -Risk factors: H/O CAD, HTN, HLP, Former Tobacco use disorder, DM II -Troponin trending down -EKG: LBBB, No acute signs of ischemia -CXR: negative -Last TTE: EF:25-30% -on IV heparin-->[facility] -continued on Aspirin, statins, BB -Oxygen PRN -Cardiology consulted, cardiac cath yesterday showed diffuse severe CAD not likely amenable to intervention; medical therapy/management recommended ROBERTO ON CKD III: -Cr levels Improved -resume diuretics as able -Hold metformin -Gentle IV fluids stopped -monitor renal function PROLONGED QTC: -on Amiodarone -monitor -avoid other QT prolonging meds ?BRONCHITIS: -started on Augmentin Day # 4 due to high aspiration risk -CXR: no signs of consolidation CHRONIC SYSTOLIC AND DIASTOLIC CHF: -Ischemic cardiomyopathy -EF 25-30% -LBBB with prolonged QRS -S/P biventricular pacemaker defibrillator implantation on 03/05/17 by -diuretics held as clinically dehydrated, resume tomorrow -was on Torsemide and spironolactone -Monitor electrolytes HX OF VENTRICULAR TACHYCARDIA AND PAF: -continued on amiodarone, Metoprolol for rate control -Eliquis restarted ASPIRATION RISK: -Swallow Eval: Aspiration precautions, patient has been swallowing without difficulty HOARSENESS: -since last admission -follow up with ENT as outpatient DM TYPE II: -HbA1c: 6.9 on 02/18/17 -continue ISS, lantus -hold Metformin GERD/Hiatal Hernia: -continue PPI No physical exam, patient overnight. Total time spent on discharge = 35 This includes examination of the patient, discharge planning, medication reconciliation, and communication with other providers. Discharge Instructions None
== END 2017-04-03 01:23 | disposition expired ==
LOC: C.EDB 09:04 → C.MED 11:31 → ENRESERV 12:10 → C.MED 22:17 → ENRESERV 04-01 14:31 → EDBEDREQ 04-01 14:51 → C.2T 04-01 15:03 → OBSVTOIN 04-01 17:14 → C.2T 04-02 18:02
PROVIDERS: ADMIT Internal Medicine; ATTEND Internal Medicine
PROC: 4A023N7 Measurement of Cardiac Sampling and Pressure, Left Heart, Percutaneous Approach (ICD-10-PCS; principal; 2017-04-01 12:13)
PROC: B211YZZ Fluoroscopy of Multiple Coronary Arteries using Other Contrast (ICD-10-PCS; principal; 2017-04-01 12:13)
PROC: B215YZZ Fluoroscopy of Left Heart using Other Contrast (ICD-10-PCS; principal; 2017-04-01 12:13)
PROC: 0BH17EZ Insertion of Endotracheal Airway into Trachea, Via Natural or Artificial Opening (ICD-10-PCS; 2017-04-03)
PROC: 5A02215 Assistance with Cardiac Output using Pulsatile Compression, Continuous (ICD-10-PCS; 2017-04-03)
DX: I21.4 Non-ST elevation (NSTEMI) myocardial infarction (principal); I13.0 Hypertensive heart and chronic kidney disease with heart failure and stage 1 through stage 4 chronic kidney disease, or unspecified chronic kidney disease; I50.42 Chronic combined systolic (congestive) and diastolic (congestive) heart failure; N17.9 Acute kidney failure, unspecified; J44.0 Chronic obstructive pulmonary disease with (acute) lower respiratory infection; I25.110 Atherosclerotic heart disease of native coronary artery with unstable angina pectoris; I46.9 Cardiac arrest, cause unspecified; I25.5 Ischemic cardiomyopathy; E78.5 Hyperlipidemia, unspecified; E11.51 Type 2 diabetes mellitus with diabetic peripheral angiopathy without gangrene; E11.22 Type 2 diabetes mellitus with diabetic chronic kidney disease; N18.3 Chronic kidney disease, stage 3 (moderate); I45.81 Long QT syndrome; I44.7 Left bundle-branch block, unspecified; J40 Bronchitis, not specified as acute or chronic; I48.0 Paroxysmal atrial fibrillation; R49.0 Dysphonia; K21.9 Gastro-esophageal reflux disease without esophagitis; K44.9 Diaphragmatic hernia without obstruction or gangrene; I25.2 Old myocardial infarction; Z86.74 Personal history of sudden cardiac arrest; Z95.0 Presence of cardiac pacemaker; Z87.891 Personal history of nicotine dependence; Z99.81 Dependence on supplemental oxygen; Z79.01 Long term (current) use of anticoagulants; Z79.82 Long term (current) use of aspirin; Z79.84 Long term (current) use of oral hypoglycemic drugs; Z79.899 Other long term (current) drug therapy; Z82.49 Family history of ischemic heart disease and other diseases of the circulatory system